=== PATIENT | female | born 1960 | race Caucasian/White ===

== ENCOUNTER 2024-09-10 12:50 | Outpatient (AMB) | payer SELFPAY ==
[2024-09-10 12:52] VITALS: BP 150/96; PULSE 125; O2SAT 79; BMI 26.6
--- NOTE | 2024-09-10 12:52 | AM.OFFWIN_ITS ---
Intake Vital Signs 09/10/24 12:52 09/10/24 12:56 Height 5 ft 4 in 5 ft 4 in Weight 155 lb BMI 26.6 BP 150/96 H Blood Pressure Location Lt brachial Position Sitting Pulse 125 H 126 H Pulse Source Pulse Oximeter Pulse Oximeter Pulse Oximetry (%) 79 L 86 L Oxygen Delivery Method Room Air Nasal Cannula Oxygen Flow Rate 2 Intake Visit Reasons: EP SOB, chest discomfort Intake Note: Pt presents to the office today for c/o SOB and chest discomfort that started a few hours ago. Pt states she has a history of COPD. Patient Tobacco Use Status: Former Tobacco user Allergies No Known Allergies Allergy (Verified 09/10/24 12:57) HPI HPI Comments History of Present Illness Details Patient is a 63-year-old female with a past medical history of COPD complaining 3 hours of acute onset shortness of breath. She tells me approximately 10:00 to day, she felt very fatigued and needed to sit down and noticed she was breathing very heavily and could not catch her breath. She just spent the previous night at the hospital with her who is suffering from a viral illness. She denies any fevers or chest pain, but is complaining of a slight cough with a some congestion and some blood in her mucus when she does cough up some phlegm. She denies any history of DVT or PE and denies any leg swelling, long road trips or sedentary lifestyle. She is a previous smoker, quit 10 years ago. [facility] Social History Patient Tobacco Use Status: Former Tobacco user Review of Systems Const All systems reviewed & are unremarkable except as noted in HPI and below Physical Exam Vital Signs: Last Vital Signs Pulse 126 H 09/10/24 12:56 BP 150/96 H 09/10/24 12:52 Pulse Ox 86 L 09/10/24 12:56 Oxygen Delivery Method Nasal Cannula 09/10/24 12:56 Oxygen Flow Rate 2 09/10/24 12:56 BMI result Body Mass Index 26.6 Const General: cooperative, healthy appearing, comfortable and no acute distress Orientation/consciousness: patient oriented x3 Limitations: no limitations HEENT Head: Yes normal to inspection Ears: hearing grossly normal bilaterally and external ears normal General nose exam: Normal external nose present, Normal nares present and No nasal discharge present Face and sinus: Yes normal facial exam Mouth: Normal oral and palatal mucosa present and moist mucous membranes Throat: Yes tonsils normal, Yes uvula midline and Yes posterior oropharynx abnormal (Erythema) Eyes General: appearance normal, both eyes and all related structures Neck Neck: Yes normal visual inspection Resp Effort & Inspection: normal respiratory effort, able to speak in complete sentences, respiratory distress (mild), not tachypneic, no tripod positioning and no use of accessory muscles Auscultation: no wheezes and diminished lung sounds on the right in the upper l lauren milian Cardio Rate: tachycardic Rhythm: regular rhythm Heart sounds: normal S1 and S2 Skin General skin exam: no rashes or lesions noted Neuro General: patient oriented x3 Extrem General: Yes normal to inspection and Yes no clubbing, cyanosis or edema Office Procedures EKG 44725-[id number], Complete Assessment & Plan Assessment & Plan (1) COPD exacerbation: Code(s): J44.1 - Chronic obstructive pulmonary disease with (acute) exacerbation Plan: Patient's oxygenation was down to 79%, came up to 88% once we placed 2 L nasal cannula on her. Heart rates around 125 beats per minute, EKG showed sinus tach with occasional PVCs and an anterior infarct age undetermined. 120 beats per minute. Patient feels better once we put the oxygen on her. Called EMS for transport to emergency department. Called [facility] ED with expect. Orders: Orders AMB EKG-In Office Today R09.02 - Hypoxemia Coding Level of Care Code New Pt Level 5 (18124) Diagnoses COPD exacerbation J44.1 CPT Codes EKG - CPT: 63195-Ixjbobsnljfvwuerm, Complete ([id number])
[2024-09-10 12:56] VITALS: PULSE 126; O2SAT 86
== END 2024-09-10 13:18 | disposition home or self-care (01) ==
PROVIDERS: PCP Internal Medicine; Visit Provider Physician Assistant
DX: J44.1 Chronic obstructive pulmonary disease with (acute) exacerbation (principal)

== ENCOUNTER → 2024-09-10 12:50 | Outpatient (BNVA) | payer SELFPAY | PROVIDERS: PCP Internal Medicine; Visit Provider Physician Assistant | DX: J44.1 Chronic obstructive pulmonary disease with (acute) exacerbation (principal); R09.02 Hypoxemia | CPT/HCPCS: 93005; 99202 ==

== ENCOUNTER 2024-09-10 13:41 | Inpatient (IN) | payer MEDICARE, OTHER, SELFPAY ==
[2024-09-10] VITALS (16 sets, daily range): BP systolic 107–143; BP diastolic 72–87; PULSE 106–129; RESP 16–25; TEMP 36.3–37.2; O2SAT 86–92; BMI 31.7
--- NOTE | ~2024-09-10 | XR_ITS ---
EXAMINATION: XR CHEST 1 VIEW HISTORY: hypoxia COMPARISON: Comparison is made with the prior examination dated 09/16/2024. FINDINGS: A single AP portable view of the chest performed at 9:42 AM is submitted. Again seen are increased interstitial markings, most prominent in the lower lung zones. More focal linear opacity in the left lower lobe and lingula is compatible with subsegmental atelectasis. There is no pleural effusion, pneumothorax, or pulmonary vascular congestion. The heart is normal in size. The aorta is calcified. There is degenerative disc disease of the spine. XR/XR chest 1V IMPRESSION: Increased interstitial markings in the lower lung zones. Subsegmental atelectasis at the left lung base. Electronically signed by: Adama Diez MD 09/18/2024 10:03 AM EDT
--- NOTE | ~2024-09-10 | CT_ITS ---
CLINICAL HISTORY: recent travel acute onset dyspnea - trop 3,000 CTA chest with 3-D postprocessing Comparison: CR/SR - XR CHEST 1V - 09/10/24 14:28 EDT Findings: Study quality is adequate for the diagnosis of pulmonary embolism. No pulmonary embolism. Heart size within normal limits. RV/LV ratio is normal. No calcified coronary artery disease. No aortic dissection or aneurysm. Mild calcified atherosclerotic disease. Mediastinal and hilar lymph nodes measure up to 1.0 cm in short axis. Advanced destructive centrilobular emphysema. Moderate amount of bilateral ground-glass opacity/patchy consolidation which is most prominent at the dependent aspects. Smooth interlobular septal thickening. No pneumothorax. Small bilateral pleural effusions. No acute osseous or soft tissue abnormality. No acute pathology in the imaged portion of the upper abdomen. Impression: No pulmonary embolism. [id number] pulmonary edema. Multifocal pneumonia is considered less likely. This is in the setting of severe emphysema. This document has been electronically signed by: Edith Sparrow MD on 09/10/2024 17:33:11
--- NOTE | ~2024-09-10 | CT_ITS ---
EXAMINATION: CT ABDOMEN PELVIS WITH IV CONTRAST HISTORY: RUQ mass on CT chest; could be artifact COMPARISON: Correlation is made with the upper abdominal images from a chest CT dated 09/14/2024. TECHNIQUE: CT scan of the abdomen and pelvis was performed following administration of 85 mL Omnipaque 350 using standard departmental protocol. Coronal and sagittal reformatted images were generated and reviewed. Oral contrast material was not administered at the request of the referring physician. This CT exam was performed with one or more of the following dose reduction techniques: automated exposure control, adjustment of the mA and/or kV according to patient size, use of iterative reconstruction technique. DLP: 418 mGy-cm FINDINGS: LOWER CHEST: Again seen is patchy airspace opacity at the lung bases. There is no pleural effusion. CARDIOVASCULATURE: The heart is normal in size. There is no pericardial effusion. LIVER: The liver is normal in size and contour. No liver mass is identified. The hepatic and portal veins are patent. GALLBLADDER / BILE DUCTS: The gallbladder is unremarkable. There is no intra or extrahepatic biliary ductal dilatation. SPLEEN: The spleen is normal in size. No focal splenic lesion is identified. PANCREAS: The pancreas is unremarkable in appearance. ADRENAL GLANDS: The right adrenal gland is unremarkable. There is a 9 mm left adrenal nodule which measured -6 HU intensity on the unenhanced chest CT, and cystoscopy with an adenoma. KIDNEYS/RETROPERITONEUM: No renal calculi are identified. There is no hydronephrosis. No renal masses are identified. LYMPH NODES: No abdominal or pelvic lymphadenopathy. VASCULATURE: The abdominal aorta is normal in caliber. MESENTERY/PERITONEUM: No free fluid. No masses. There is no free intraperitoneal gas. STOMACH: The stomach is collapsed, limiting evaluation. SMALL BOWEL: The small bowel is normal in caliber. COLON: There is a moderate amount of stool throughout the colon. APPENDIX: Normal. URINARY BLADDER/PELVIC ORGANS: The urinary bladder is unremarkable. The uterus and ovaries are unremarkable. BONES / SOFT TISSUES: No suspicious bony or soft tissue abnormalities. CT/CT abdomen pelvis w IV con IMPRESSION: 1. No evidence of an upper abdominal mass. The abnormality noted on chest CT likely represented volume averaging with the gastric body. 2. 9 mm left adrenal adenoma. 3. Moderate amount of stool throughout the colon. Electronically signed by: Adama Diez MD 09/19/2024 09:46 AM EDT RP
--- NOTE | ~2024-09-10 | XR_ITS ---
EXAMINATION: XR CHEST 1 VIEW HISTORY: cough COMPARISON: There are no prior studies for comparison. FINDINGS: A single AP portable view of the chest performed at 2:28 PM is submitted. There is prominence of the pulmonary vasculature, consistent with congestion. There are tiny bilateral pleural effusions. There is no pneumothorax. The heart is enlarged. The aorta is calcified. There is degenerative disc disease of the spine. XR/XR chest 1V IMPRESSION: Cardiomegaly, mild pulmonary vascular congestion, and tiny bilateral pleural effusions. Electronically signed by: Adama Diez MD 09/10/2024 02:33 PM EDT
--- NOTE | ~2024-09-10 | XR_ITS ---
EXAMINATION: XR CHEST 1 VIEW HISTORY: hemoptysis COMPARISON: Comparison is made with the prior examination dated 09/12/2024. FINDINGS: A single AP portable view of the chest performed at 2:08 PM is submitted. Again seen are increased interstitial markings in both lungs. The appearance is similar to prior study. There is no pleural effusion, pneumothorax, or pulmonary vascular congestion. The heart is normal in size. There is degenerative disc disease of the spine. XR/XR chest 1V IMPRESSION: Increased interstitial markings throughout both lungs without significant change. Electronically signed by: Adama Diez MD 09/16/2024 02:36 PM EDT
--- NOTE | ~2024-09-10 | US_ITS ---
EXAMINATION: US ABDOMEN LIMITED HISTORY: ct chest ? Masslike density in the RUQ TECHNIQUE: Real-time grayscale ultrasound imaging of the right upper quadrant was performed and images were reviewed. COMPARISON: Correlation is made with the upper abdominal images from a chest CT dated 09/14/2024. FINDINGS: Limited sonographic examination of the right upper quadrant was performed. The liver is grossly unremarkable in appearance. The pancreas is not visualized. US/US abdomen limited IMPRESSION: The pancreas is not visualized. Further evaluation with contrast-enhanced CT of the abdomen and pelvis (with oral and IV contrast) is recommended to further evaluate the partially visualized possible abnormality noted on unenhanced CT. Electronically signed by: Adama Diez MD 09/17/2024 07:57 AM EDT
--- NOTE | ~2024-09-10 | XR_ITS ---
EXAMINATION: XR CHEST CLINICAL INFORMATION: PNA, ?CHF COMPARISON: September 10, 2024 TECHNIQUE: Frontal view of the chest was obtained. FINDINGS: Pulmonary reticular nodular pattern. No gross pneumothorax or pleural effusion. Cardiomediastinal silhouette size is mildly prominent. Calcified plaque thoracic aorta. Mild to moderate multilevel thoracic spondylosis. Degenerative changes in the right acromioclavicular joint. XR/XR chest 1V IMPRESSION: Chronic interstitial lung disease with improved/less interstitial lung edema. Superimposed acute pneumonitis versus acute small airway disease should be considered. Electronically signed by: Sergo Bishop MD 09/12/2024 08:06 AM EDT
--- NOTE | ~2024-09-10 | CT_ITS ---
CLINICAL HISTORY: pna heamoptysis CT CHEST WITHOUT CONTRAST Comparison: CR/SR - XR CHEST 1V - 09/12/24 07:[address]/SR - CT ANGIO CHEST PE PROTOCOL - 09/10/24 16:34 EDT Findings: The heart size is normal. Scattered calcific plaque in the normal caliber thoracic aorta. Visualized thyroid gland unremarkable. Improved mediastinal adenopathy. Abnormal airspace opacities in the bilateral upper lobes are unchanged. Abnormal airspace opacities in the right middle lobe, lingula and bilateral lower lobes are improved. No new or worsening consolidative changes. Near-complete resolution of bilateral pleural effusions with residual tiny findings on the right. No pneumothorax. Centrilobular emphysematous changes. No acute fractures. Masslike density in the right upper quadrant on axial image 64. IMPRESSION: 1. Multifocal bilateral pneumonia overall improved compared to prior. 2. Near-complete resolution of small bilateral pleural effusions. 3. Masslike density in the right upper quadrant may represent volume averaging artifact. Recommend clinical correlation and follow-up CT abdomen pelvis with IV contrast if clinically indicated. This document has been electronically signed by: Amna Abdi DO on 09/14/2024 13:32:50
--- NOTE | 2024-09-10 13:57 | ECG_ITS ---
Test Reason : TACHY/SOB Blood Pressure : */* mmHG Vent. Rate : 126 BPM Atrial Rate : 126 BPM P-R Int : 154 ms QRS Dur : 84 ms QT Int : 306 ms P-R-T Axes : 47 50 101 degrees QTcB Int : 443 ms Sinus tachycardia Anterior infarct , age undetermined Abnormal ECG No previous ECGs available Referred By: Erika Diaz Electronically Signed By: Jim Ho
--- NOTE | 2024-09-10 14:03 | ED_ITS ---
HPI - SOB/Dyspnea General Chief Complaint: Dyspnea Stated Complaint: SOB Source: patient, EMS and old records reviewed Mode of arrival: EMS Limitations: no limitations History of Present Illness ED Provider: PHI CARRASQUILLO Narrative: 63 yo female with PMH of heavy smoking though did quit 10 to 12 years ago, COPD not on home O2 who traveled to [place] (08/29 to 09/03) with her boyfriend who is also ill and was in our ER with reported negative work up. The patient notes over the past few days she has been having chills, dyspnea, feels congested and her chest is tight with coarse junky cough. Today after taking him home and situating him she notes she felt worse and more dyspneic. She has no chest pain, leg swelling. She notes they stayed in a really old hotel. She states she has pneumonia 10 years ago and this feels similar. Patient was found to be 79% on arrival to urgent care. EMS gave duoneb which did help on arrival here she is 88% on 5L NC - she notes her normal O2 sat is 94%. MD elicited complaint: shortness of breath Pertinent past history: COPD Onset (ago): day(s) (few) Context: recent illness Timing: progressively worsening Severity: severe Exacerbating factors: exertion and coughing Relieving factors: rest Known history of: COPD Associated symptoms: cough Treatment prior to arrival: oxygen and other (neb therapy) Related Data Home Medications ?Medication ?Instructions ?Recorded ?Confirmed No Known Home Meds 09/10/24 09/10/24 Allergies Allergy/AdvReac Type Severity Reaction Status Date / Time codeine Allergy Unknown Verified 09/10/24 13:59 Review of Systems 2 Review of Systems: Constitutional : No Fever, pos Chills ENT/Mouth : No sore throat, No Rhinorrhea, No Swallowing Difficulty Eyes: No Eye Pain, No Swelling, No Redness Cardiovascular : No Chest Pain, positive SOB, No edema Respiratory : pos Cough, No Sputum, No Wheezing, positive dyspnea Gastrointestinal : No Nausea, No Vomiting, No Diarrhea, No abdominal Pain, No Hematochezia, No Melena Genitourinary : No Dysuria, No Urinary Frequency, No Hematuria Musculoskeletal : No joint pain, No Myalgias Skin : No Skin Lesions, No rash Neuro : pos Weakness, No Numbness, No Dizziness, No Headache All other systems reviewed and are negative PMFSH Past Medical History Attestation statement: The following information was validated with the patient. Source: old records reviewed Medical History (Updated 09/10/24 @ 18:54 by ALINA Spivey) COPD exacerbation Urinary tract infection Social History Social History Patient Tobacco Use Status: Former Tobacco user Smoked in Last 30 Days: No Use of substances other than those prescribed or required for medical reasons: No Advance Directives: No Advance Directives Information Provided: Yes Physical Exam 2 Vital Signs: Vital Signs: Last Vital Signs Temp 98.7 F 09/10/24 20:21 Pulse 126 H 09/10/24 20:21 Resp 20 09/10/24 20:21 BP 121/78 09/10/24 20:21 Pulse Ox 90 L 09/10/24 20:21 O2 Del Method High Flow Nasal C annula 09/10/24 20:21 O2 Flow Rate 50 09/10/24 19:17 FiO2 65 09/10/24 19:17 Oxygen Flow Rate 3 09/10/24 13:57 BMI result Body Mass Index 31.7 Appearance: Alert. Oriented X3. Mild acute distress. Eyes: Pupils equal, round and reactive to light. ENT: Pharynx dry MM Neck: Normal inspection. Neck supple. CVS: tachycardic heart rate and rhythm. Pulses normal. Respiratory: Mild respiratory distress tachypnea and short phrase. Breath sounds very diminished R > L. Abdomen: Soft and nontender. Skin: Skin warm and dry. Normal skin color. Normal skin turgor. Extremities: No lower extremity edema. No calf ttp Neuro: Oriented X 3. No motor deficit. No sensory deficit. CN2-12 intact Course Course Course Narrative: on high flow at this time given persistent hypoxia given total 150ml of LR (held rest of 1,000mL bolus after speaking to RN) concern that this is more viral infection vs ACS/VTE and not acute bacterial infection causing severe sepsis lactic also likely elevated after albuterol dose 81mg aspirin and no contraindications to heparin Medications Administered Generic Name Dose Route Start Last Admin Trade Name Freq PRN Reason Stop Dose Admin Albuterol/Ipratropium 3 ml 09/10/24 20:00 09/10/24 19:28 Albuterol/Iprat 2.5/0.5mg 3 Ml Ampul.Neb INHALE 3 ml RQ4H WHILE AWAKE DIONNE Administration Heparin Sodium/Sodium Chloride 25,000 unit in 250 mls @ 0 mls/hr 09/10/24 15:15 09/10/24 15:37 Heparin Sodium,Porcine/1/2ns IVCONT 11.92 units/kg/hr .Q0M DIONNE 10 mls/hr Administration Protocol Per Protocol Azithromycin 500 mg/ Sodium 250 mls @ 125 mls/hr 09/10/24 19:00 09/10/24 19:50 Chloride IV 125 mls/hr Q24H DIONNE Administration Discontinued Medications Generic Name Dose Route Start Last Admin Trade Name Freq PRN Reason Stop Dose Admin Aspirin 81 mg 09/10/24 15:14 09/10/24 15:29 Aspirin 81 Mg Tab.Chew PO 09/10/24 15:15 81 mg ONCE ONE Administration Ceftriaxone Sodium 1 gm 09/10/24 14:00 09/10/24 14:22 Ceftriaxone Sodium 1 Gm Vial IVPUSH 09/10/24 14:01 1 gm ONCE ONE Administration Levalbuterol HCl 2.5 mg/ 0 mg 09/10/24 14:22 09/10/24 14:24 Ipratropium [place] 0.5 mg INHALE 09/10/24 14:23 1 dose ONCE ONE Administration Furosemide 20 mg 09/10/24 15:33 09/10/24 16:10 Furosemide 20 Mg/2 Ml Vial IVPUSH 09/10/24 15:34 20 mg ONCE ONE Administration Protocol Heparin Sodium (Porcine) 4,000 unit 09/10/24 15:13 09/10/24 15:30 Heparin Sodium,Porcine 5,000 Unit/Ml Vial IVPUSH 09/10/24 15:14 4,000 unit ONCE ONE Administration Magnesium Sulfate 2 gm in 50 mls @ 150 mls/hr 09/10/24 14:00 09/10/24 15:41 Magnesium Sulfate/H2o IV 09/10/24 14:19 Infused ONCE ONE Infusion Lactated Ringer's 1,000 mls @ 999 mls/hr 09/10/24 14:02 09/10/24 15:07 Lr IV 09/10/24 15:02 Infused .Q1H1M ONE Infusion Iohexol 100 ml 09/10/24 16:39 09/10/24 16:39 Iohexol 350 Mg/Ml 100 Ml Infus..Btl IV 09/10/24 16:40 65 ml ONCE ONE Administration Levofloxacin 750 mg 09/10/24 14:02 09/10/24 14:22 Levofloxacin 750 Mg Tablet PO 09/10/24 14:03 750 mg ONCE ONE Administration Methylprednisolone Sodium Succinate 60 mg 09/10/24 14:00 09/10/24 14:22 Methylprednisolone Sod Succ 125 Mg/2 Ml Vial IVPUSH 09/10/24 14:01 60 mg ONCE ONE Administration Medical Decision Making Medical Decision Making MDM Narrative: 63 yo female with PMH of COPD but not on home O2 who comes in with c/o URI symptoms and her spouse is also sick after recent travel to [place] her spouse has URI symptoms and mild diarrhea. Patient has been hypoxic but has no pleuritic chest pain and no signs of DVT I suspect more infectious. At this time given her history I am going to obtain EKG, labs, cultures, start neb therapy, IV steroids / IV magnesium, VBG ordered if there is no signs of retention which clinically there isn't I am going to start on high flow if she continues to be on oxymask with increased hypoxia. If no improvement in her O2 will proceed with CTA study. Her symptoms seem more infectious but EKG and troponin ordered to rule out acute pathology such as atypical ACS, demand, myocarditis. IV ceftriaxone ordered for CAP then oral levofloxacin given legionnairres concern for hotel stay. Differential Diagnosis Differential Diagnoses: The differential diagnosis associated with the presentation includes pneumonia, COPD exacerbation symptoms seem more infectious and partner has same symptoms doubt VTE at this time Admission/Observation Consideration of admission/observation: Escalation of care including admission/observation considered admit for further workup Consult Healthcare Provider Management of the patient was discussed with: Hospitalist (will admit) and Batch Still Operator [id number] message sent to cardiology after troponin level. CTA PE, ECHO, heparin x 48 hours, lasix 20mg x 1, ECHO looks like takotsubo Lab Data [facility] Lab Attestation statement: I reviewed the patient's lab results. 09/10/24 14:20 09/10/24 14:20 Labs: Lab Results 09/10/24 09/10/24 09/10/24 Range/Units 14:19 14:20 14:27 WBC 23.5 H (4.8-10.8) X10*3/uL RBC 5.76 H (4.20-5.50) X10*6/uL Hgb 17.1 H (12.0-16.0) g/dl Hct 50.1 H (37.0-47.0) % MCV 87.0 (80.0-98.0) fL MCH 29.7 (27.0-33.0) pg MCHC 34.1 (31.0-35.0) g/dl RDW 13.8 (11.0-16.0) % Plt Count 359 (160-400) X10*3/uL MPV 11.2 (9.4-12.3) fL Immature Gran % (Auto) 0.6 H (0.0-0.4) % Neut % (Auto) 87.5 H (45-73) % Lymph % (Auto) 6.3 L (20-40) % [place] % (Auto) 5.2 (2-11) % Eos % (Auto) 0.2 (0-4) % Baso % (Auto) 0.2 (0-2) % Lymph # (Auto) 1.5 (1.2-4.9) X10*3/uL [place] # (Auto) 1.2 (0.1-1.2) X10*3/uL Eos # (Auto) 0.0 (0.0-0.4) X10*3/uL Baso # (Auto) 0.1 (0.0-0.2) X10*3/uL Abs Immat Gran (auto) 0.13 H (0.00-0.03) X10*3/uL Absolute Neuts (auto) 20.6 H (2.0-8.3) x10*3/uL Absolute Nucleated RBC 0.000 (0.0-0.012) X10*3/uL Nucleated RBC % (auto) 0.0 (0.0-0.2) /100WBC Smear Tech's Comments VERIFIED PT (10.9-12.4) SEC INR (0.9-1.1) aPTT Heparin Protocol (53-77.9) SEC VBG pH 7.33 (7.32-7.43) VBG pCO2 44 mmHg VBG pO2 28 mmHg VBG HCO3 23 (22-26) mmol/L VBG O2 Saturation 33.0 % VBG Base Excess -2.2 mmol/L Sodium 135 (135-145) mmol/L Potassium 4.0 (3.3-5.1) mmol/L Chloride 99 (96-108) mmol/L Carbon Dioxide 22 (22-29) mmol/L Anion Gap 18 (12-20) BUN 14 (9-16) mg/dL Creatinine 0.72 (0.5-1.4) mg/dL Estim Creat Clear Calc 81.6 Estimated GFR > 60 Random Glucose 162 H (60-115) mg/dL Lactic Acid (0.5-2.0) mmol/L Lactic Acid F/U @ 2Hr (0.5-2.0) mmol/L Calcium 9.6 (8.4-10.2) mg/dL Magnesium 1.8 (1.6-2.6) mg/dL Total Bilirubin 0.6 (0.0-1.0) mg/dL Direct Bilirubin 0.2 (0.0-0.5) mg/dL AST 54 H (5-31) U/L ALT 33 H (0-31) U/L Alkaline Phosphatase 110 (39-117) U/L Troponin I High Sens 3385.0 H* (<3.5-17.0) ng/L C-Reactive Protein 2.28 H (< or = 0.50) mg/dL B-Natriuretic Peptide 805 H (<100) pg/mL Total Protein 8.3 H (6.5-8.0) g/dL Albumin 4.5 (3.5-5.0) g/dL Lipase 11 (8-78) U/L Procalcitonin 0.04 ng/mL Urine Color Urine Appearance Urine pH (5.0-9.0) Ur Specific [place] (1.005-1.025) Urine Protein (Neg-Trace) mg/dL Urine Glucose (UA) (Negative) mg/dL Urine Ketones (Negative) mg/dL Urine Blood (Negative) Urine Nitrite (Negative) Ur Leukocyte Esterase (Negative) Urine RBC (0-2) /HPF Urine WBC (0-5) /HPF Ur Squamous Epith Cells (0-2) /HPF Urine Bacteria (None Seen) Hyaline Casts (0-2) /LPF Influenza Type A (PCR) NEGATIVE (Negative) Influenza Type B (PCR) NEGATIVE (Negative) RSV RNA Qual (PCR) NEGATIVE (Negative) SARS-CoV-2 RNA (RT-PCR) NEGATIVE (Negative) 09/10/24 09/10/24 09/10/24 Range/Units 15:04 15:32 16:52 WBC (4.8-10.8) X10*3/uL RBC (4.20-5.50) X10*6/uL Hgb (12.0-16.0) g/dl Hct (37.0-47.0) % MCV (80.0-98.0) fL MCH (27.0-33.0) pg MCHC (31.0-35.0) g/dl RDW (11.0-16.0) % Plt Count (160-400) X10*3/uL MPV (9.4-12.3) fL Immature Gran % (Auto) (0.0-0.4) % Neut % (Auto) (45-73) % Lymph % (Auto) (20-40) % [place] % (Auto) (2-11) % Eos % (Auto) (0-4) % Baso % (Auto) (0-2) % Lymph # (Auto) (1.2-4.9) X10*3/uL [place] # (Auto) (0.1-1.2) X10*3/uL Eos # (Auto) (0.0-0.4) X10*3/uL Baso # (Auto) (0.0-0.2) X10*3/uL Abs Immat Gran (auto) (0.00-0.03) X10*3/uL Absolute Neuts (auto) (2.0-8.3) x10*3/uL Absolute Nucleated RBC (0.0-0.012) X10*3/uL Nucleated RBC % (auto) (0.0-0.2) /100WBC Smear Tech's Comments PT 13.8 H (10.9-12.4) SEC INR 1.2 H (0.9-1.1) aPTT Heparin Protocol 33.9 L (53-77.9) SEC VBG pH (7.32-7.43) VBG pCO2 mmHg VBG pO2 mmHg VBG HCO3 (22-26) mmol/L VBG O2 Saturation % VBG Base Excess mmol/L Sodium (135-145) mmol/L Potassium (3.3-5.1) mmol/L Chloride (96-108) mmol/L Carbon Dioxide (22-29) mmol/L Anion Gap (12-20) BUN (9-16) mg/dL Creatinine (0.5-1.4) mg/dL Estim Creat Clear Calc Estimated GFR Random Glucose (60-115) mg/dL Lactic Acid 4.2 H* (0.5-2.0) mmol/L Lactic Acid F/U @ 2Hr (0.5-2.0) mmol/L Calcium (8.4-10.2) mg/dL Magnesium (1.6-2.6) mg/dL Total Bilirubin (0.0-1.0) mg/dL Direct Bilirubin (0.0-0.5) mg/dL AST (5-31) U/L ALT (0-31) U/L Alkaline Phosphatase (39-117) U/L Troponin I High Sens (<3.5-17.0) ng/L C-Reactive Protein (< or = 0.50) mg/dL B-Natriuretic Peptide (<100) pg/mL Total Protein (6.5-8.0) g/dL Albumin (3.5-5.0) g/dL Lipase (8-78) U/L Procalcitonin ng/mL Urine Color Yellow Urine Appearance Clear Urine pH 5.5 (5.0-9.0) Ur Specific [place] 1.015 (1.005-1.025) Urine Protein Negative (Neg-Trace) mg/dL Urine Glucose (UA) Negative (Negative) mg/dL Urine Ketones 40 (Negative) mg/dL Urine Blood Negative (Negative) Urine Nitrite Negative (Negative) Ur Leukocyte Esterase Moderate (2+) H (Negative) Urine RBC 0-2 (0-2) /HPF Urine WBC 11-20 H (0-5) /HPF Ur Squamous Epith Cells 6-10 (0-2) /HPF Urine Bacteria Trace (None Seen) Hyaline Casts 0-2 (0-2) /LPF Influenza Type A (PCR) (Negative) Influenza Type B (PCR) (Negative) RSV RNA Qual (PCR) (Negative) SARS-CoV-2 RNA (RT-PCR) (Negative) 03/18/25 Range/Units 17:12 WBC (4.8-10.8) X10*3/uL RBC (4.20-5.50) X10*6/uL Hgb (12.0-16.0) g/dl Hct (37.0-47.0) % MCV (80.0-98.0) fL MCH (27.0-33.0) pg MCHC (31.0-35.0) g/dl RDW (11.0-16.0) % Plt Count (160-400) X10*3/uL MPV (9.4-12.3) fL Immature Gran % (Auto) (0.0-0.4) % Neut % (Auto) (45-73) % Lymph % (Auto) (20-40) % [place] % (Auto) (2-11) % Eos % (Auto) (0-4) % Baso % (Auto) (0-2) % Lymph # (Auto) (1.2-4.9) X10*3/uL [place] # (Auto) (0.1-1.2) X10*3/uL Eos # (Auto) (0.0-0.4) X10*3/uL Baso # (Auto) (0.0-0.2) X10*3/uL Abs Immat Gran (auto) (0.00-0.03) X10*3/uL Absolute Neuts (auto) (2.0-8.3) x10*3/uL Absolute Nucleated RBC (0.0-0.012) X10*3/uL Nucleated RBC % (auto) (0.0-0.2) /100WBC Smear Tech's Comments PT (10.9-12.4) SEC INR (0.9-1.1) aPTT Heparin Protocol (53-77.9) SEC VBG pH (7.32-7.43) VBG pCO2 mmHg VBG pO2 mmHg VBG HCO3 (22-26) mmol/L VBG O2 Saturation % VBG Base Excess mmol/L Sodium (135-145) mmol/L Potassium (3.3-5.1) mmol/L Chloride (96-108) mmol/L Carbon Dioxide (22-29) mmol/L Anion Gap (12-20) BUN (9-16) mg/dL Creatinine (0.5-1.4) mg/dL Estim Creat Clear Calc Estimated GFR Random Glucose (60-115) mg/dL Lactic Acid (0.5-2.0) mmol/L Lactic Acid F/U @ 2Hr 2.8 H* (0.5-2.0) mmol/L Calcium (8.4-10.2) mg/dL Magnesium (1.6-2.6) mg/dL Total Bilirubin (0.0-1.0) mg/dL Direct Bilirubin (0.0-0.5) mg/dL AST (5-31) U/L ALT (0-31) U/L Alkaline Phosphatase (39-117) U/L Troponin I High Sens 3195.0 H* (<3.5-17.0) ng/L C-Reactive Protein (< or = 0.50) mg/dL B-Natriuretic Peptide (<100) pg/mL Total Protein (6.5-8.0) g/dL Albumin (3.5-5.0) g/dL Lipase (8-78) U/L Procalcitonin ng/mL Urine Color Urine Appearance Urine pH (5.0-9.0) Ur Specific [place] (1.005-1.025) Urine Protein (Neg-Trace) mg/dL Urine Glucose (UA) (Negative) mg/dL Urine Ketones (Negative) mg/dL Urine Blood (Negative) Urine Nitrite (Negative) Ur Leukocyte Esterase (Negative) Urine RBC (0-2) /HPF Urine WBC (0-5) /HPF Ur Squamous Epith Cells (0-2) /HPF Urine Bacteria (None Seen) Hyaline Casts (0-2) /LPF Influenza Type A (PCR) (Negative) Influenza Type B (PCR) (Negative) RSV RNA Qual (PCR) (Negative) SARS-CoV-2 RNA (RT-PCR) (Negative) Independent Interpretation I performed an independent interpretation of an: EKG, Plain X-Ray and CT Scan (edema) Interpretation: Rate: 126 Rhythm: sinus tachycardia [place]: normal Normal P waves. Normal GUSTAVO. Normal QRS complex. Poor R wave progression ST T wave : no ELVIN, nonspecific ST T wave changes I and aVL qTC: 443 prior studies: no STEMI The study has been interpreted contemporaneously by me. . Radiology Impression Discussion of test interpretation with radiology: I have reviewed the radiologist's reading. Independent Historian Clinical information obtained from an independent historian. History obtained from or confirmed by: EMS External Record Review External record reviewed: Outpatient record Critical Care Time Critical Care Time Critical Care Time: Yes Total Critical Care Time: 60 Attestation: repeat labs, sepsis protocol, cardiology consult, high flow O2 for hypoxia I attest to this time spent taking care of the patient Discharge Plan Discharge Clinical Impression: Hypoxia, Takotsubo cardiomyopathy, Non-ST elevation MA (NSTEMI), Acidosis, lactic Patient Disposition: Admitted As Inpatient Interventions: Admission Worksheet (ED) Last Done: 09/10/24 19:21 Discharge Date/Time: 09/10/24 20:17 Sepsis Bolus Exclusion Sepsis Bolus Exclusion CHF/Renal Failure This patient met severe sepsis criteria due to the following condition(s):: L actate>=4mmol/L In my clinical judgement the administration of 30 ml/kg of crystalloid would be detrimental to this patient due to the patient's following conditions:: Concern for fluid overload Replace the 30 mls/kg with (Zero amount not acceptable and all fluids for severe sepsis must be given at GREATER than 125 mls/hr) Crystalloids amount given in mls: (rate must be at least 150cc/hr): 150 Colloids amount given in mls:: 0
[2024-09-10] MEDS: levoFLOXacin 750 MG TABLET PO (14:22)
[2024-09-10] MEDS: methylPREDNISolone Sod Succ 125 MG/2 ML VIAL 60 MG IVPUSH (14:22)
[2024-09-10] MEDS: Magnesium Sulfate/H2O 2 GM/50 ML PIGGYBACK IV (14:22)
[2024-09-10] MEDS: cefTRIAXone sodium 1 GM VIAL IVPUSH (14:22)
[2024-09-10] MEDS: Lactated Ringers 1,000 ML 999 ML IV (14:23)
[2024-09-10] MEDS: levalbuterol HCL 2.5 MG, Ipratropium Bromide 0.5 MG INHALE (14:24)
[2024-09-10 14:30] LABS: Basophils Absolute Auto 0.1 X10*3/uL (0.0-0.2); Basophils Percent Auto 0.2 % (0-2); Eosinophils Percent Auto 0.2 % (0-4); Hematocrit 50.1 % (37.0-47.0); Hemoglobin 17.1 g/dl (12.0-16.0); Imm Gran Abs Auto 0.13 X10*3/uL (0.00-0.03); Imm Gran Pct Auto 0.6 % (0.0-0.4); Lymphocytes Absolute Auto 1.5 X10*3/uL (1.2-4.9); Lymphocytes Percent Auto 6.3 % (20-40); MANUAL DIFF FLAG SCAN; Mean Corpuscular HGB Conc 34.1 g/dl (31.0-35.0); Mean Corpuscular Hemoglobin 29.7 pg (27.0-33.0); Mean Platelet Volume 11.2 fL (9.4-12.3); Monocytes Absolute Auto 1.2 X10*3/uL (0.1-1.2); Monocytes Percent Auto 5.2 % (2-11); Neutrophils Absolute Auto 20.6 x10*3/uL (2.0-8.3); Neutrophils Percent Auto 87.5 % (45-73); Platelet Count 359 X10*3/uL (160-400); Red Blood Count 5.76 X10*6/uL (4.20-5.50); Red Cell Distribution Width 13.8 % (11.0-16.0); SCAN SMEAR FLAG 1; White Blood Count 23.5 X10*3/uL (4.8-10.8)
[2024-09-10 14:32] LABS: VBG Base Excess -2.2 mmol/L; VBG HCO3 23 mmol/L (22-26); VBG pCO2 44 mmHg; VBG pH 7.33 (7.32-7.43); VBG pO2 28 mmHg
[2024-09-10 14:38] LABS: Venous Blood Gas Refer to POC result
[2024-09-10 14:54] LABS: Alanine Aminotransferase 33 U/L (0-31); Albumin Level 4.5 g/dL (3.5-5.0); Alkaline Phosphatase 110 U/L (39-117); Anion Gap 18 (12-20); Aspartate Amino Transferase 54 U/L (5-31); Bilirubin Direct 0.2 mg/dL (0.0-0.5); Bilirubin Total 0.6 mg/dL (0.0-1.0); Blood Urea Nitrogen 14 mg/dL (9-16); C Reactive Protein 2.28 mg/dL (< or = 0.50); Calcium 9.6 mg/dL (8.4-10.2); Carbon Dioxide 22 mmol/L (22-29); Chloride 99 mmol/L (96-108); Creatinine Clr Calc Pharmacy 81.6; Estimated Glomerular Filt Rate > 60; Glucose Random 162 mg/dL (60-115); Lipase 11 U/L (8-78); Magnesium 1.8 mg/dL (1.6-2.6); Sodium 135 mmol/L (135-145); Total Protein 8.3 g/dL (6.5-8.0)
[2024-09-10 14:55] LABS: B Type Natriuretic Peptide 805 pg/mL (<100)
[2024-09-10 15:08] LABS: Procalcitonin 0.04 ng/mL
--- NOTE | 2024-09-10 15:08 | PC.NURSE ---
at the bedside, IV fluids D/C, O2 increased to 7L oxymask
--- NOTE | 2024-09-10 15:15 | CA_ITS ---
Transthoracic Echocardiogram Patient (Last, First, Middle): Earlene Causey, Gender: Female Date of : 1960 Age: 63 Procedure Date: 09/10/2024 Procedure Type: Transthoracic Echocardiogram Location: ER Height: 162.56 cm Weight: 83.46 kg BSA: 1.89 m2 Heart Rate: bpm BP: 122 / 78 mmHg Senior Electrical Engineer: Referring MD: Vianca Terry MD Symptoms: troponin+, ECG changes Study Quality: Fair ECG Rhythm: Sinus TACHY Conclusions: - Normal left ventricular cavity size. There is normal left ventricular wall thickness. The left ventricular systolic function is moderate to severely decreased. The visually estimated ejection fraction is between 25-30%. - The entire apex, the mid anterior, mid inferior, mid anterolateral, mid inferoseptal, mid anteroseptal, and mid inferolateral segments are akinetic. - Takotsubo cardiomyopathy vs multivessel disease. Findings Procedure Information Contrast agent, definity, is being given per protocol without apparent complications. Left Ventricle Normal left ventricular cavity size. There is normal left ventricular wall thickness. The left ventricular systolic function is moderate to severely decreased. The visually estimated ejection fraction is between 25-30%. There is evidence of regional wall motion abnormalities. Diastolic function is indeterminate on the basis of available data. Wall Motion Rest Echo Findings The entire apex, the mid anterior, mid inferior, mid anterolateral, mid inferoseptal, mid anteroseptal, and mid inferolateral segments are akinetic. Right Ventricle Normal right ventricular cavity size. There is low normal right ventricular systolic function. Atria The left atrium is normal in size. The right atrium is normal in size. Aortic Valve The aortic valve was not well visualized. There is no aortic valve stenosis. There is no aortic valve regurgitation. Mitral Valve The mitral valve appears normal. There is trace mitral valve regurgitation. There is no mitral valve stenosis. Pulmonic Valve The pulmonic valve is likely normal. Tricuspid Valve Normal tricuspid valve structure. There is no tricuspid valve regurgitation. Normal right atrial pressure. There is no evidence of pulmonary hypertension. Venous The inferior vena cava is normal in size and collapses greater than 50% with inspiration. Pericardium/Pleural There is no evidence of pericardial effusion. Prior Study Comparison No prior study available for comparison. Measurements 2D Linear Measurements IVSd: 0.93 0.6-0.9/0.6-1.0 cm LVIDd: 4.77 3.9-5.3/4.2-5.9 cm LVIDd Index: 2.52 2.4-3.2/2.2-3.1 cm/m2 LVIDs: 4.33 2.0-3.6 cm LVPWd: 0.83 0.7-1.1 cm Ao Root: 2.40 2.1-3.5 cm LA Diam: 3.60 2.7-3.8/3.0-4.0 cm LAIDs Index: 1.90 1.5-2.3 cm/m2 LV Mass: 176.58 67-162/88-224 g LV Mass Index: 93.43 43-95/49-115 g/m2 LVOT Diam: 1.90 3.0+(-)1.3 cm Mitral Valve MV Pk E: 0.74 MV Decel Time: 121.00 E'Lateral: 8.81 E'Medial: 10.70 E/E' Med: 6.90 E/E' Lat: 8.40 PHT: 36.00 MVA PHT: 6.11 Decel Hand: 6.10 Aortic Valve AoV Pk Gaetano: 1.30 AoV Mn Gaetano: 0.80 AoV VTI: 0.19 AoV Pk Grad: 7.00 Aov Mn Grad: 3.00 WILMAR Cont.VTI: 1.71 LVOT LVOT Pk Gaetano: 0.78 LVOT Mn Gaetano: 0.56 LVOT VTI: 0.11 LVOT Pk Grad: 2.00 LVOT Mn Grad: 1.00 LVOT Diam: 1.90 LVOT Area: 2.84 Diastolic Function MV Pk E: 0.74 E'Medial: 10.70 E/E' Med: 6.90 E' Laterial: 8.81 E/E' Lat: 8.40 Right Ventricle TAPSE (mm): 18.00 TVS' Gaetano: 9.00 Tricuspid Valve TR Pk Gaetano: 1.58 TR Pk Grad: 10.00 RA Press: 3.00 RVSP: 13.00 Great Vessels Aorta Ao Root-2D: 2.40 2.0-3.7 cm Pulmonary Valve PV Pk Gaetano: 0.71 Peak PV Grad: 2.00 Updated in Other Vendor System with Status of Final Jim Ho MD electronically signed on 09/11/2024 4:09:39 PM with status of Final
[2024-09-10 15:16] LABS: Influenza A PCR NEGATIVE (Negative); Influenza B PCR NEGATIVE (Negative); Resp Syncy Virus RNA Qual PCR NEGATIVE (Negative); SARS COV2 PCR INHOUSE NEGATIVE (Negative)
[2024-09-10 15:21] LABS: SLIDE REVIEW VERIFIED
[2024-09-10 15:26] LABS: Lactic Acid 4.2 mmol/L (0.5-2.0)
[2024-09-10] MEDS: Aspirin 81 MG TAB.CHEW PO (15:29)
--- NOTE | 2024-09-10 15:29 | PC.NURSE ---
per provider give heparin bolus and start heparin drip once PT/ INR has been drawn
[2024-09-10] MEDS: Heparin Sodium,Porcine 5,000 UNIT/ML VIAL 4000 UNIT IVPUSH (15:30)
[2024-09-10] MEDS: Heparin Sodium,Porcine/1/2NS 25,000 UNIT/250 ML IV.SOLN 10 UNIT IVCONT (15:37)
[2024-09-10 15:42] LABS: INTERNATIONAL NORM RATIO 1.2 (0.9-1.1); Prothrombin Time 13.8 SEC (10.9-12.4)
[2024-09-10 15:44] LABS: PTT Heparin Drip 33.9 SEC (53-77.9)
--- NOTE | 2024-09-10 15:58 | PM.CNCAR ---
History of Present Illness History of Present Illness Date of Service: 09/10/24 Requesting physician: Erika Diaz Chief complaint: SOB Narrative: [age] year female who we have asked to see for elevated troponins and ECG changes. She was in [place] with her . On return the has been has been sick with respiratory illness and she also has been feeling sick with shortness of breath and chest tightness. She has known history of COPD. With these symptoms she presented and was hypoxic. Her BNP and troponins were elevated. ECG showed sinus tachycardia with precordial subtle T-wave inversions. She is on high-flow oxygen currently. Denying any chest discomfort. ECG sinus tachycardia. Echocardiography is showing at least moderate LV dysfunction with classic takotsubo like changes. She has no history of coronary disease in the past. [facility] Past Medical History Medical History Urinary tract infection COPD exacerbation Social History Social History Patient Tobacco Use Status: Former Tobacco user Smoked in Last 30 Days: No Use of substances other than those prescribed or required for medical reasons: No Advance Directives: No Advance Directives Information Provided: Yes Meds Allergies Allergy/AdvReac Type Severity Reaction Status Date / Time codeine Allergy Unknown Verified 09/10/24 13:59 Active Medications: Current Medications Heparin Sodium (Porcine) (Heparin Sodium,Porcine 5,000 Unit/Ml Vial) 3,400 unit 40 unit/kg (3400 unit) IVPUSH PROTOCOL BOLUS PRN; Protocol PRN Reason: 40 unit/kg - Heparin Protocol Heparin Sodium (Porcine) (Heparin Sodium,Porcine 5,000 Unit/Ml Vial) 6,700 unit 80 unit/kg (6700 unit) IVPUSH PROTOCOL BOLUS PRN; Protocol PRN Reason: 80 unit/kg - Heparin Protocol Heparin Sodium/Sodium Chloride (Heparin Sodium,Porcine/1/2ns) 25,000 unit in 250 mls @ 0 mls/hr IVCONT .Q0M [facility]; Protocol Last Admin: 09/10/24 15:37 Dose: 11.92 units/kg/hr, 10 mls/hr Home Medications ?Medication ?Instructions ?Recorded ?Confirmed ?Last Taken ?Type No Known Home Meds 09/10/24 09/10/24 Unknown History Physical Exam Vital Signs: Vital Signs: Last Vital Signs Temp 98.8 F 09/10/24 15:54 Pulse 129 H 09/10/24 15:54 Resp 22 H 09/10/24 15:54 BP 140/87 H 09/10/24 15:54 Pulse Ox 90 L 09/10/24 15:54 O2 Del Method High Flow Nasal C annula 09/10/24 15:54 O2 Flow Rate 7 09/10/24 15:14 Oxygen Flow Rate 3 09/10/24 13:57 BMI result Body Mass Index 31.7 GENERAL APPEARANCE: On high-flow oxygen. Appears comfortable. NECK: no carotid bruit, mild jugular venous distention. SKIN: no suspicious lesions, warm and dry. HEART: no murmurs, regular rate and rhythm. Tachycardic. LUNGS: clear to auscultation anteriorly. ABDOMEN: soft, nontender. EXTREMITIES: no edema. PERIPHERAL PULSES: equal. NEUROLOGIC: No gross deficits, AAO X 3 Objective Labs and Meds 09/10/24 14:20 09/10/24 14:20 Lab results: Laboratory Results - last 24 hr 09/10/24 09/10/24 09/10/24 14:19 14:20 14:27 WBC 23.5 H RBC 5.76 H Hgb 17.1 H Hct 50.1 H MCV 87.0 MCH 29.7 MCHC 34.1 RDW 13.8 Plt Count 359 MPV 11.2 Immature Gran % (Auto) 0.6 H Neut % (Auto) 87.5 H Lymph % (Auto) 6.3 L [place] % (Auto) 5.2 Eos % (Auto) 0.2 Baso % (Auto) 0.2 Lymph # (Auto) 1.5 [place] # (Auto) 1.2 Eos # (Auto) 0.0 Baso # (Auto) 0.1 Abs Immat Gran (auto) 0.13 H Absolute Neuts (auto) 20.6 H Absolute Nucleated RBC 0.000 Nucleated RBC % (auto) 0.0 Smear Tech's Comments VERIFIED PT INR aPTT Heparin Protocol VBG pH 7.33 VBG pCO2 44 VBG pO2 28 VBG HCO3 23 VBG O2 Saturation 33.0 VBG Base Excess -2.2 Sodium 135 Potassium 4.0 Chloride 99 Carbon Dioxide 22 Anion Gap 18 BUN 14 Creatinine 0.72 Estim Creat Clear Calc 81.6 Estimated GFR > 60 Random Glucose 162 H Lactic Acid Calcium 9.6 Magnesium 1.8 Total Bilirubin 0.6 Direct Bilirubin 0.2 AST 54 H ALT 33 H Alkaline Phosphatase 110 Troponin I High Sens 3385.0 H* C-Reactive Protein 2.28 H B-Natriuretic Peptide 805 H Total Protein 8.3 H Albumin 4.5 Lipase 11 Procalcitonin 0.04 Influenza Type A (PCR) NEGATIVE Influenza Type B (PCR) NEGATIVE RSV RNA Qual (PCR) NEGATIVE SARS-CoV-2 RNA (RT-PCR) NEGATIVE 09/10/24 09/10/24 15:04 15:32 WBC RBC Hgb Hct MCV MCH MCHC RDW Plt Count MPV Immature Gran % (Auto) Neut % (Auto) Lymph % (Auto) [place] % (Auto) Eos % (Auto) Baso % (Auto) Lymph # (Auto) [place] # (Auto) Eos # (Auto) Baso # (Auto) Abs Immat Gran (auto) Absolute Neuts (auto) Absolute Nucleated RBC Nucleated RBC % (auto) Smear Tech's Comments PT 13.8 H INR 1.2 H aPTT Heparin Protocol 33.9 L VBG pH VBG pCO2 VBG pO2 VBG HCO3 VBG O2 Saturation VBG Base Excess Sodium Potassium Chloride Carbon Dioxide Anion Gap BUN Creatinine Estim Creat Clear Calc Estimated GFR Random Glucose Lactic Acid 4.2 H* Calcium Magnesium Total Bilirubin Direct Bilirubin AST ALT Alkaline Phosphatase Troponin I High Sens C-Reactive Protein B-Natriuretic Peptide Total Protein Albumin Lipase Procalcitonin Influenza Type A (PCR) Influenza Type B (PCR) RSV RNA Qual (PCR) SARS-CoV-2 RNA (RT-PCR) Imaging Radiologist's impression: Impressions Chest X-Ray 09/10/24 14:01 IMPRESSION: Cardiomegaly, mild pulmonary vascular congestion, and tiny bilateral pleural effusions. Electronically signed by: Adama Diez MD 09/10/2024 02:33 PM EDT Assessment and Plan (1) NSTEMI (non-ST elevated myocardial infarction): Status: Acute (2) Cardiomyopathy: Status: Acute Plan 63 year female presenting with shortness of breath. Her was sick and she also got sick after him. Chest x-ray is showing bilateral interstitial changes with fluid in the fissure. Elevated BNP and elevated troponin levels. Echocardiography is showing takotsubo cardiomyopathy. Likely issue is sepsis due to viral or bacterial cause leading to stress-induced myopathy. Takotsubo explains the elevated BNP and troponin level. For labeling someone takotsubo cardiomyopathy, angiography is required. I think right now I would favor continuing heparin at least for 48 hours. Give her baby aspirin. 20 mg IV Lasix. Please do not try to slow her down with beta-blue or calcium channel blue. She has [id number] LV dysfunction and tachycardia is compensatory currently. We will follow along with you. Thank you for allowing me to participate in the care of your patient. Please feel free to contact me if you have any questions. Procedures Date of Service Date of Service: 09/10/24
[2024-09-10] MEDS: Furosemide 20 MG/2 ML VIAL IVPUSH (16:10)
[2024-09-10] MEDS: iohexoL 350 MG/ML 100 ML INFUS..BTL IV (16:39)
[2024-09-10 17:03] LABS: Appearance Urine Clear; Color Urine Yellow; Glucose Urine UA Negative (Negative); Leukocyte Esterase Urine Moderate (2+) (Negative); Nitrite Urine Negative (Negative); PH 5.5 (5.0-9.0); Specific Gravity - Urine 1.015 (1.005-1.025); UMIC TRIGGER UACC YES; Urine Blood Negative (Negative); Urine Ketones 40 mg/dL (Negative); Urine Protein Negative (Neg-Trace)
--- NOTE | 2024-09-10 17:07 | PC.NURSE ---
Patient on high flow 02, reports feels as though she is breathing better. Bedside echo obtained , cardiology at bedside. Purewick placed. Patient remains tacycardic, provider aware.
[2024-09-10 17:08] LABS: Reflex Lactate? Lactic Acid Added
[2024-09-10 17:08] LABS: Bacteria Urine Trace (None Seen); Hyaline Casts Urine 0-2 /LPF (0-2); RBC Urine 0-2 /HPF (0-2); UACC Culture Trigger YES
[2024-09-10 17:39] LABS: ~Lactic Acid-LAB USE ONLY 2.8 mmol/L (0.5-2.0)
--- NOTE | 2024-09-10 18:40 | P.HPHOSP_ITS ---
History of Present Illness Date of Service: 09/10/24 Attending physician on admission: [facility] Chief Complaint: Cough, chest tightness, shortness of breath 63 yo female with PMH of heavy smoking though did quit 10 to 12 years ago, COPD not on home O2 who traveled to [place] (08/29 to 09/03) with her boyfriend who is also ill and was in our ER with reported negative work up. The patient notes over the past few days she has been having chills, dyspnea, feels congested and her chest is tight with coarse productive cough. Today after taking him home and situating him she notes she felt worse and more dyspneic with associated chest tightness. Dyspnea worse with exertion. She presented to an urgent care where oximetry was 79% on room air and was subsequently transferred to the ED for further evaluation and management. EN route, EMS gave a DuoNeb and placed her on 5 L nasal cannula satting 88%. Due to increased work of breathing and persistent hypoxia, patient was transitioned to high-flow O2 and is now satting 91%. Since arrival, patient has been tachycardic to 126, in sinus rhythm, and tachypneic. Blood pressure stable, afebrile. She has a leukocytosis of 23.5. H/H 17.1/50.1%, baseline unknown. Renal function electrolyte levels normal. Initial lactic acid 4.2, repeat 2.8. AST 54, ALT 33. Initial troponin 3385, repeat 3195. BNP 805. CRP 2.28. Procalcitonin 0.04. Urinalysis with 2+ leukocytes, positive urinary sediment, trace bacteria. Negative for COVID-19, RSV, influenza. Full viral respiratory panel pending. CTA of the chest negative for pulmonary embolism but shows mild to moderate pulmonary edema with multifocal pneumonia though possible given history of severe emphysema. EKG shows sinus tachycardia with T-wave inversions in the precordial leads. No ELVIN. Cardiology evaluated patient at bedside and performed bedside echocardiogram which he reports shows at least moderate LV systolic dysfunction with classic takotsubo like changes. In the ED, has been given IV ceftriaxone, IV Levaquin, IV methylprednisolone, albuterol/DuoNeb and has been started on heparin drip per protocol at the recommendation of Cardiology. Review of Systems 2 Review of Systems: Yes all other systems are reviewed and are negative [facility] Medical History (Updated 09/10/24 @ 18:54 by ALINA Spivey) COPD exacerbation Urinary tract infection Social History Patient Tobacco Use Status: Former Tobacco user Smoked in Last 30 Days: No Use of substances other than those prescribed or required for medical reasons: No Advance Directives: No Advance Directives Information Provided: Yes Meds Allergies Allergy/AdvReac Type Severity Reaction Status Date / Time codeine Allergy Unknown Verified 09/10/24 13:59 Active Medications: Current Medications Heparin Sodium (Porcine) (Heparin Sodium,Porcine 5,000 Unit/Ml Vial) 3,400 unit 40 unit/kg (3400 unit) IVPUSH PROTOCOL BOLUS PRN; Protocol PRN Reason: 40 unit/kg - Heparin Protocol Heparin Sodium (Porcine) (Heparin Sodium,Porcine 5,000 Unit/Ml Vial) 6,700 unit 80 unit/kg (6700 unit) IVPUSH PROTOCOL BOLUS PRN; Protocol PRN Reason: 80 unit/kg - Heparin Protocol Heparin Sodium/Sodium Chloride (Heparin Sodium,Porcine/1/2ns) 25,000 unit in 250 mls @ 0 mls/hr IVCONT .Q0M [facility]; Protocol Last Admin: 09/10/24 15:37 Dose: 11.92 units/kg/hr, 10 mls/hr Home Medications ?Medication ?Instructions ?Recorded ?Confirmed ?Last Taken ?Type No Known Home Meds 09/10/24 09/10/24 Unknown History Physical Exam 2 Vital Signs and Narrative: Vital Signs: Last Vital Signs Temp 97.4 F 09/10/24 18:12 Pulse 126 H 09/10/24 18:12 Resp 16 09/10/24 18:12 BP 115/73 09/10/24 18:12 Pulse Ox 90 L 09/10/24 18:12 O2 Del Method High Flow Nasal C annula 09/10/24 18:12 O2 Flow Rate 7 09/10/24 15:14 Oxygen Flow Rate 3 09/10/24 13:57 BMI result Body Mass Index 31.7 Constitutional - Awake and Alert, No apparent distress Eyes - PERRLA, EOMI Cardiovascular - S1S2, RRR, No edema Respiratory - Normal lung expansion, Normal respiratory effort, No respiratory distress, diminished lung sounds bilaterally with faint rhonchi noted in the right lung Gastrointestinal - NT / ND; +BS; No rebound or guarding Extremities - no calf tenderness bilaterally, no swelling Skin - Warm/Dry Neurological - Alert & oriented x3 Psychological - Appropriate affect Results Labs 09/10/24 14:20 09/10/24 14:20 Labs: Laboratory Results - last 24 hr 09/10/24 09/10/24 09/10/24 14:19 14:20 14:27 MCV 87.0 MCH 29.7 MCHC 34.1 RDW 13.8 Plt Count 359 MPV 11.2 Immature Gran % (Auto) 0.6 H Neut % (Auto) 87.5 H Lymph % (Auto) 6.3 L [place] % (Auto) 5.2 Eos % (Auto) 0.2 Baso % (Auto) 0.2 Lymph # (Auto) 1.5 [place] # (Auto) 1.2 Eos # (Auto) 0.0 Baso # (Auto) 0.1 Abs Immat Gran (auto) 0.13 H Absolute Neuts (auto) 20.6 H Absolute Nucleated RBC 0.000 Nucleated RBC % (auto) 0.0 Smear Tech's Comments VERIFIED PT INR aPTT Heparin Protocol VBG pH 7.33 VBG pCO2 44 VBG pO2 28 VBG HCO3 23 VBG O2 Saturation 33.0 VBG Base Excess -2.2 Anion Gap 18 Estim Creat Clear Calc 81.6 Estimated GFR > 60 Random Glucose 162 H Lactic Acid Lactic Acid F/U @ 2Hr Calcium 9.6 Magnesium 1.8 Total Bilirubin 0.6 Direct Bilirubin 0.2 AST 54 H ALT 33 H Alkaline Phosphatase 110 C-Reactive Protein 2.28 H B-Natriuretic Peptide 805 H Total Protein 8.3 H Albumin 4.5 Lipase 11 Procalcitonin 0.04 Urine Color Urine Appearance Urine pH Ur Specific [place] Urine Protein Urine Glucose (UA) Urine Ketones Urine Blood Urine Nitrite Ur Leukocyte Esterase Urine RBC Urine WBC Ur Squamous Epith Cells Urine Bacteria Hyaline Casts Influenza Type A (PCR) NEGATIVE Influenza Type B (PCR) NEGATIVE RSV RNA Qual (PCR) NEGATIVE SARS-CoV-2 RNA (RT-PCR) NEGATIVE 09/10/24 09/10/24 09/10/24 15:04 15:32 16:52 MCV MCH MCHC RDW Plt Count MPV Immature Gran % (Auto) Neut % (Auto) Lymph % (Auto) [place] % (Auto) Eos % (Auto) Baso % (Auto) Lymph # (Auto) [place] # (Auto) Eos # (Auto) Baso # (Auto) Abs Immat Gran (auto) Absolute Neuts (auto) Absolute Nucleated RBC Nucleated RBC % (auto) Smear Tech's Comments PT 13.8 H INR 1.2 H aPTT Heparin Protocol 33.9 L VBG pH VBG pCO2 VBG pO2 VBG HCO3 VBG O2 Saturation VBG Base Excess Anion Gap Estim Creat Clear Calc Estimated GFR Random Glucose Lactic Acid 4.2 H* Lactic Acid F/U @ 2Hr Calcium Magnesium Total Bilirubin Direct Bilirubin AST ALT Alkaline Phosphatase C-Reactive Protein B-Natriuretic Peptide Total Protein Albumin Lipase Procalcitonin Urine Color Yellow Urine Appearance Clear Urine pH 5.5 Ur Specific [place] 1.015 Urine Protein Negative Urine Glucose (UA) Negative Urine Ketones 40 Urine Blood Negative Urine Nitrite Negative Ur Leukocyte Esterase Moderate (2+) H Urine RBC 0-2 Urine WBC 11-20 H Ur Squamous Epith Cells 6-10 Urine Bacteria Trace Hyaline Casts 0-2 Influenza Type A (PCR) Influenza Type B (PCR) RSV RNA Qual (PCR) SARS-CoV-2 RNA (RT-PCR) 09/10/24 17:12 MCV MCH MCHC RDW Plt Count MPV Immature Gran % (Auto) Neut % (Auto) Lymph % (Auto) [place] % (Auto) Eos % (Auto) Baso % (Auto) Lymph # (Auto) [place] # (Auto) Eos # (Auto) Baso # (Auto) Abs Immat Gran (auto) Absolute Neuts (auto) Absolute Nucleated RBC Nucleated RBC % (auto) Smear Tech's Comments PT INR aPTT Heparin Protocol VBG pH VBG pCO2 VBG pO2 VBG HCO3 VBG O2 Saturation VBG Base Excess Anion Gap Estim Creat Clear Calc Estimated GFR Random Glucose Lactic Acid Lactic Acid F/U @ 2Hr 2.8 H* Calcium Magnesium Total Bilirubin Direct Bilirubin AST ALT Alkaline Phosphatase C-Reactive Protein B-Natriuretic Peptide Total Protein Albumin Lipase Procalcitonin Urine Color Urine Appearance Urine pH Ur Specific [place] Urine Protein Urine Glucose (UA) Urine Ketones Urine Blood Urine Nitrite Ur Leukocyte Esterase Urine RBC Urine WBC Ur Squamous Epith Cells Urine Bacteria Hyaline Casts Influenza Type A (PCR) Influenza Type B (PCR) RSV RNA Qual (PCR) SARS-CoV-2 RNA (RT-PCR) Imaging Radiologist's Impressions: Impressions Chest X-Ray 09/10/24 14:01 IMPRESSION: Cardiomegaly, mild pulmonary vascular congestion, and tiny bilateral pleural effusions. Electronically signed by: Adama Diez MD 09/10/2024 02:33 PM EDT RP Assessment and Plan (1) Acidosis, lactic: Status: Acute (2) Non-ST elevation NM (NSTEMI): Status: Acute (3) Takotsubo cardiomyopathy: Status: Acute (4) Acute hypoxemic respiratory failure: Status: Acute (5) Multifocal pneumonia: Status: Acute (6) COPD exacerbation: Status: Acute Plan 63 yo female with PMH of heavy smoking though did quit 10 to 12 years ago, COPD not on home O2 who traveled to [place] (08/29 to 09/03) with her boyfriend who is also ill and was in our ER with reported negative work up will be admitted for further management of acute hypoxemic respiratory failure in the setting of CHF exacerbation secondary to takotsubo cardiomyopathy as well as multifocal pneumonia with sepsis Acute hypoxemic respiratory failure Multifocal in the setting of CHF exacerbation, URI, and multifocal pneumonia Wean from high-flow oxygen as tolerated Viral respiratory panel pending Treat per below Acute CHF exacerbation/takotsubo cardiomyopathy Likely induced by viral or bacterial illness leading to stress induced myopathy Bedside echocardiogram showed at least moderate systolic LV dysfunction per Cardiology CTA of the chest shows pulmonary edema IV Lasix 20 mg daily Cardiac diet Strict I&O Cardiology consult Follow renal function electrolyte levels NSTEMI Troponins x2 flat but >3000 EKG with T-wave inversions in the precordial leads but no ELVIN Heparin drip per protocol recommended by Cardiology Continue baby aspirin No beta-blue or calcium channel blue per Cardiology Monitor on telemetry Cardiology consult Multifocal pneumonia with sepsis Leukocytosis 23.2, tachypnea. Tachycardia secondary to cardiomyopathy. Lactic acidosis due to hypoperfusion from hypoxia, no severe sepsis/shock IV ceftriaxone azithromycin (initiated 09/10) Likely secondary to viral URI Strep pneumo antigen, Legionella antigen COPD exacerbation In setting of above IV methylprednisolone 40 mg b.i.d. DuoNebs q.4h while awake Guaifenesin p.r.n. DVT prophylaxis-heparin per protocol Full code Given patient's acute hypoxemic respiratory failure secondary to CHF exacerbation with takotsubo cardiomyopathy as well as NSTEMI, patient requires very close cardiac monitoring as well as monitoring of hemodynamics. She will require treatment with heparin drip and needs to be weaned from high-flow O2. She will require expert consultation as well as antibiotics for multifocal pneumonia with sepsis. Quality Stroke Does the patient have a stroke diagnosis?: No VTE Prior VTE?: No VTE Risk Level:: Medical - moderate - high VTE Device Contraindication: Treatment Not Indicated VTE Drug Contraindication: N/A - Med Ordered
--- NOTE | 2024-09-10 18:46 | PHA.MEDREC ---
Addendum entered by Radha Rubio RPh 09/10/24 18:48: [facility] reviewed Original Note: Pharmacy Consult ? Medication Reconciliation Pharmacy has completed the medication reconciliation. Patient states she is not taking any medications.
[2024-09-10 19:15] LABS: Reflex Lactate? 2 Y
[2024-09-10] MEDS: Albuterol/Iprat 2.5/0.5MG 3 ML AMPUL.NEB INHALE (19:28)
[2024-09-10] MEDS: Azithromycin 500 MG in 0.9 % Sodium Chloride 250 ML 125 MG IV (19:50)
[2024-09-10 22:14] LABS: PTT Heparin Drip 69.7 SEC (53-77.9)
[2024-09-10] MEDS: Melatonin 3 MG TABLET 6 MG PO (22:17)
[2024-09-10] MEDS: Acetaminophen 325 MG TABLET 650 MG PO (22:17)
[2024-09-11] VITALS (13 sets, daily range): BP systolic 106–121; BP diastolic 67–84; PULSE 89–119; RESP 14–20; TEMP 36.1–37.5; O2SAT 91–95
[2024-09-11 04:50] LABS: PTT Heparin Drip 53.1 SEC (53-77.9)
[2024-09-11] MEDS: 0.9 % Sodium Chloride Flush 3 ML SYRINGE IVFLUSH ×3 (05:37→20:32)
[2024-09-11] MEDS: methylPREDNISolone Sod Succ 40 MG/ML VIAL IVPUSH ×2 (05:37→16:24)
[2024-09-11] MEDS: Albuterol/Iprat 2.5/0.5MG 3 ML AMPUL.NEB INHALE ×5 (05:55→20:38)
[2024-09-11 07:33] LABS: MANUAL DIFF FLAG NO
[2024-09-11 07:47] LABS: INTERNATIONAL NORM RATIO 1.4 (0.9-1.1)
[2024-09-11 07:50] LABS: Anion Gap 14 (12-20); Blood Urea Nitrogen 15 mg/dL (9-16); Calcium 9.1 mg/dL (8.4-10.2); Carbon Dioxide 24 mmol/L (22-29); Chloride 102 mmol/L (96-108); Creatinine Clr Calc Pharmacy 83.9; Estimated Glomerular Filt Rate > 60; Glucose Random 136 mg/dL (60-115); Potassium 3.8 mmol/L (3.3-5.1); Sodium 136 mmol/L (135-145)
[2024-09-11 07:51] LABS: Basophils Percent Auto 0.2 % (0-2); Eosinophils Percent Auto 0.1 % (0-4); Hematocrit 45.1 % (37.0-47.0); Hemoglobin 15.3 g/dl (12.0-16.0); Imm Gran Abs Auto 0.16 X10*3/uL (0.00-0.03); Imm Gran Pct Auto 0.9 % (0.0-0.4); Lymphocytes Absolute Auto 1.6 X10*3/uL (1.2-4.9); Lymphocytes Percent Auto 9.2 % (20-40); Mean Corpuscular HGB Conc 33.9 g/dl (31.0-35.0); Mean Corpuscular Hemoglobin 29.4 pg (27.0-33.0); Mean Corpuscular Volume 86.6 fL (80.0-98.0); Mean Platelet Volume 11.6 fL (9.4-12.3); Monocytes Percent Auto 5.6 % (2-11); Neutrophils Absolute Auto 14.3 x10*3/uL (2.0-8.3); Platelet Count 281 X10*3/uL (160-400); Red Blood Count 5.21 X10*6/uL (4.20-5.50); White Blood Count 17.1 X10*3/uL (4.8-10.8)
[2024-09-11] MEDS: guaiFENesin 200 MG/10 ML 10 ML LIQUID PO ×2 (07:51→14:29)
[2024-09-11] MEDS: Furosemide 20 MG/2 ML VIAL IVPUSH (07:51)
[2024-09-11] MEDS: Aspirin 81 MG TAB.CHEW PO (07:51)
[2024-09-11] MEDS: Acetaminophen 325 MG TABLET 650 MG PO ×3 (07:53→20:31)
--- NOTE | 2024-09-11 12:53 | MHC.CM.PN ---
Pt lives with her S.O., she does not have a PCP, brochure given, she does not have any home health services or DME. She is still working fulltime. Financial counselors will assist with insurance, she does not currently have any, is eligible to Medicare. She cam arrange a ride home at [place]. HCP form to be completed here and added to chart. DCP: home, self care, CM to follow for DC needs.
[2024-09-11 12:54] LABS: Adenovirus PCR Not Detected (Not Detect.); Bordetella parapertussis PCR Not Detected (Not Detect.); Bordetella pertussis PCR Not Detected (Not Detect.); Chlamydia pneumoniae PCR Not Detected (Not Detect.)
[2024-09-11 12:55] LABS: Coronavirus 229E PCR Not Detected (Not Detect.); Coronavirus HKU1 PCR Not Detected (Not Detect.); Human metapneumovirus PCR Detected (Not Detect.)
[2024-09-11 12:56] LABS: Coronavirus NL63 PCR Not Detected (Not Detect.); Coronavirus OC43 PCR Not Detected (Not Detect.); Influenza A PCR Not Detected (Not Detect.); Influenza B PCR Not Detected (Not Detect.); Mycoplasma pneumoniae PCR Not Detected (Not Detect.); Parainfluenza 1 PCR Not Detected (Not Detect.); Parainfluenza 2 PCR Not Detected (Not Detect.); Parainfluenza 3 PCR Not Detected (Not Detect.); Parainfluenza 4 PCR Not Detected (Not Detect.); RSV PCR Not Detected (Not Detect.); Rhino/Enterovirus PCR Not Detected (Not Detect.); SARS-CoV-2 PCR Not Detected (Not Detect.)
--- NOTE | 2024-09-11 14:12 | P.CONPL_ITS ---
History of Present Illness History of Present Illness Consult date: 09/11/24 Chief complaint: Hypoxia Narrative: 63-year-old lady, former 40+ pack-year smoker, quit 2014 with underlying COPD not on home O2 admitted on 09/10/2024 with rapid onset of dyspnea that worse with exertion and hypoxia. CT angio chest with no evidence of pulmonary emboli or lobar pneumonia, but significant emphysema. Further workup significant for elevated troponin and BNP level. Bedside echocardiogram with concern for takotsubo cardiomyopathy. Being evaluated by Cardiology service and currently on heparin drip. Patient reports slowly improving dyspnea and no other respiratory symptoms. Review of Systems 2 Constitutional: Constitutional: Denies daytime sleepiness, Denies excessive sweating, Denies fatigue, Denies fever(s), Denies lethargy, Denies malaise, Denies night sweats, Denies snoring and Denies weight loss Eyes: Eyes: Denies blurry vision and Denies itchy eyes ENT: Denies nasal congestion, Denies post nasal drip, Denies sinus pain, Denies sinus pressure and Denies other ( Thrush) Cardiovascular: Cardiovascular: Denies chest pain, Denies pedal edema, Reports dyspnea, Reports dyspnea on exertion, Denies orthopnea and Denies paroxysmal nocturnal dyspnea Respiratory: Respiratory: Denies cough, Denies hemoptysis, Denies excessive phlegm production, Reports dyspnea, Reports dyspnea on exertion, Denies snoring and Denies wheezing Gastrointestinal: Gastrointestinal: Denies abdominal pain and Denies heartburn Musculoskeletal: Musculoskeletal: Denies myalgias, Denies arthralgias and Denies joint swelling Integumentary/Breasts: Skin/Breast: Denies rash Neurologic: Denies memory loss and Denies seizure-like activity Psychiatric: Psychiatric: Denies abnormal sleep pattern, Denies anxiety and Denies memory loss Endocrine: Endocrine: Denies excessive sweating, Denies fatigue and Denies heat intolerance Hematologic/Lymphatic: Hematologic/Lymphatic: Denies easy bruising Allergic/Immunologic: Allergic/Immunologic: Denies itchy eyes, Denies seasonal rhinorrhea and Denies wheezing PMFSH Past Medical History Medical History (Updated 09/10/24 @ 18:54 by ALINA Spivey) COPD exacerbation Urinary tract infection Social History Social History Household Members: Significant Other Housing: House Patient Tobacco Use Status: Former Tobacco user Smoked in Last 30 Days: No Use of substances other than those prescribed or required for medical reasons: No Currently Displaying Signs/Symptoms of Drug Intoxication Withdrawal: No Advance Directives: No Advance Directives Information Provided: Yes Recently lost weight without trying: No Patient : No service: No Meds Allergies Allergy/AdvReac Type Severity Reaction Status Date / Time codeine Allergy Unknown Verified 09/10/24 13:59 Active Medications: Current Medications Acetaminophen (Acetaminophen 325 Mg Tablet) 650 mg PO Q6H PRN PRN Reason: Pain, Mild 1-3,fever,headache Last Admin: 09/11/24 07:53 Dose: 650 mg Albuterol/Ipratropium (Albuterol/Iprat 2.5/0.5mg 3 Ml Ampul.Neb) 3 ml INHALE RQ4H WHILE AWAKE DIONNE Last Admin: 09/11/24 11:44 Dose: 3 ml Albuterol/Ipratropium (Albuterol/Iprat 2.5/0.5mg 3 Ml Ampul.Neb) 3 ml INHALE Q4H PRN PRN Reason: Wheezing Last Admin: 09/11/24 05:55 Dose: 3 ml Aspirin (Aspirin 81 Mg Tab.Chew) 81 mg PO DAILY DIONNE Last Admin: 09/11/24 07:51 Dose: 81 mg Calcium Carbonate (Calcium Carbonate 750 Mg Tab.Chew) 750 mg PO Q4H PRN PRN Reason: Heartburn Ceftriaxone Sodium (Ceftriaxone Sodium 1 Gm Vial) 1 gm IVPUSH Q24H DIONNE Furosemide (Furosemide 20 Mg/2 Ml Vial) 20 mg IVPUSH DAILY DIONNE; Protocol Last Admin: 09/11/24 07:51 Dose: 20 mg Guaifenesin (Guaifenesin 200 Mg/10 Ml 10 Ml Liquid) 10 ml PO Q4H PRN PRN Reason: Cough Last Admin: 09/11/24 07:51 Dose: 10 ml Heparin Sodium (Porcine) (Heparin Sodium,Porcine 5,000 Unit/Ml Vial) 3,400 unit 40 unit/kg (3400 unit) IVPUSH PROTOCOL BOLUS PRN; Protocol PRN Reason: 40 unit/kg - Heparin Protocol Heparin Sodium (Porcine) (Heparin Sodium,Porcine 5,000 Unit/Ml Vial) 6,700 unit 80 unit/kg (6700 unit) IVPUSH PROTOCOL BOLUS PRN; Protocol PRN Reason: 80 unit/kg - Heparin Protocol Heparin Sodium/Sodium Chloride (Heparin Sodium,Porcine/1/2ns) 25,000 unit in 250 mls @ 0 mls/hr IVCONT .Q0M [facility]; Protocol Last Titration: 09/11/24 05:01 Dose: 11.92 units/kg/hr, 10 mls/hr Azithromycin 500 mg/ Sodium (Chloride) 250 mls @ 125 mls/hr IV Q24H [facility] Last Infusion: 09/10/24 22:02 Dose: Infused Magnesium Hydroxide (Milk Of Magnesia 30 Ml Oral.Susp) 30 ml PO DAILY PRN PRN Reason: Constipation Melatonin (Melatonin 3 Mg Tablet) 6 mg PO BEDTIME PRN PRN Reason: Insomnia Last Admin: 09/10/24 22:17 Dose: 6 mg Methylprednisolone Sodium Succinate (Methylprednisolone Sod Succ 40 Mg/Ml Vial) 40 mg IVPUSH Q12H [facility] Last Admin: 09/11/24 05:37 Dose: 40 mg Sodium Chloride (0.9 % Sodium Chloride Flush 3 Ml Syringe) 3 ml IVFLUSH QSHIFT [facility] Last Admin: 09/11/24 08:43 Dose: Not Given Home Medications ?Medication ?Instructions ?Recorded ?Confirmed ?Last Taken ?Type No Known Home Meds 09/10/24 09/10/24 Unknown History Physical Exam 2 Vital Signs: Vital Signs: Last Vital Signs Temp 97.0 F 09/11/24 11:12 Pulse 94 09/11/24 11:44 Resp 20 09/11/24 11:44 BP 120/76 09/11/24 11:12 Pulse Ox 92 09/11/24 11:12 O2 Del Method High Flow Nasal C annula 09/11/24 11:12 O2 Flow Rate 50 09/11/24 11:12 FiO2 60 09/11/24 11:12 Oxygen Flow Rate 3 09/10/24 13:57 BMI result Body Mass Index 31.7 Const: General: no acute distress and alert Nutritional Appearance: not obese Orientation/consciousness: Other orientation findings ( oriented) HEENT: Head: Yes atraumatic Eyes: General: appearance normal, both eyes and all related structures S clerae: sclerae normal EOM: EOMs intact bilaterally Neck: Neck: Yes supple Lymphatic: no lymphadenopathy noted Resp: Effort & Inspection: normal respiratory effort and no use of accessory muscles Auscultation: clear to auscultation bilaterally Cardio: Rate: regular rate Rhythm: regular rhythm Heart sounds: no gallops, no murmurs and no rubs Skin: General skin exam: other ( warm) Extrem: General: No clubbing, No cyanosis and No edema Results Laboratory Findings 09/11/24 06:58 09/11/24 06:58 ABG, PT/INR, D-dimer: PT/INR, D-dimer PT 16.0 SEC (10.9-12.4) H 09/11/24 06:58 INR 1.4 (0.9-1.1) H 09/11/24 06:58 Abnormal lab findings: Abnormal Labs 09/10/24 09/10/24 09/10/24 14:19 14:20 15:04 WBC 23.5 H RBC 5.76 H Hgb 17.1 H Hct 50.1 H Immature Gran % (Auto) 0.6 H Neut % (Auto) 87.5 H Lymph % (Auto) 6.3 L Abs Immat Gran (auto) 0.13 H Absolute Neuts (auto) 20.6 H PT INR aPTT Heparin Protocol Random Glucose 162 H Lactic Acid 4.2 H* Lactic Acid F/U @ 2Hr Lactic Acid F/U @ 4Hr AST 54 H ALT 33 H Troponin I High Sens 3385.0 H* C-Reactive Protein 2.28 H B-Natriuretic Peptide 805 H Total Protein 8.3 H Ur Leukocyte Esterase Urine WBC Human Metapneumovir PCR 09/10/24 09/10/24 09/10/24 15:32 16:19 16:52 WBC RBC Hgb Hct Immature Gran % (Auto) Neut % (Auto) Lymph % (Auto) Abs Immat Gran (auto) Absolute Neuts (auto) PT 13.8 H INR 1.2 H aPTT Heparin Protocol 33.9 L Random Glucose Lactic Acid Lactic Acid F/U @ 2Hr Lactic Acid F/U @ 4Hr AST ALT Troponin I High Sens C-Reactive Protein B-Natriuretic Peptide Total Protein Ur Leukocyte Esterase Moderate (2+) H Urine WBC 11-20 H Human Metapneumovir PCR Detected A 09/10/24 09/10/24 09/11/24 17:12 19:34 06:58 WBC 17.1 H RBC Hgb Hct Immature Gran % (Auto) 0.9 H Neut % (Auto) 84.0 H Lymph % (Auto) 9.2 L Abs Immat Gran (auto) 0.16 H Absolute Neuts (auto) 14.3 H PT 16.0 H INR 1.4 H aPTT Heparin Protocol Random Glucose 136 H Lactic Acid Lactic Acid F/U @ 2Hr 2.8 H* Lactic Acid F/U @ 4Hr 3.0 H* AST ALT Troponin I High Sens 3195.0 H* C-Reactive Protein B-Natriuretic Peptide Total Protein Ur Leukocyte Esterase Urine WBC Human Metapneumovir PCR Microbiology: Microbiology 09/10/24 Unknown Urine clean catch - Clean Catch Midstream Urine Culture - Preliminary No growth to date. Assessment and Plan (1) Acute hypoxemic respiratory failure: Status: Acute (2) COPD exacerbation: Status: Acute (3) Cardiomyopathy: Status: Acute Plan Impression: 63-year-old lady admitted with rapid onset hypoxia on background of no COPD with no evidence of pulmonary emboli, but suspicion for acute stress cardiomyopathy, now improving slowly, though still requiring high-flow nasal cannula supplementation to maintain normal oximetry. Recommendation: Agree with current therapeutic regimen including nebulized bronchodilators. Consider discontinuation of systemic glucocorticoids. It appears patient has acute stress cardiomyopathy is a major etiology her hypoxia that is slowly improving. Suggest starting on Anoro. Would require further outpatient pulmonary follow-up for underlying COPD. Procedures Date of Service Date of Service: 09/11/24
--- NOTE | 2024-09-11 14:21 | P.PNIM_ITS ---
Subjective Subjective Date of Service: 09/11/24 Interval History: pneumonia ,elevated trops Review of Systems denies any chest pain sob seems improving Physical Exam 2 Vital Signs: Vital Signs: Last Vital Signs Temp 97.0 F 09/11/24 11:12 Pulse 94 09/11/24 11:44 Resp 20 09/11/24 11:44 BP 120/76 09/11/24 11:12 Pulse Ox 92 09/11/24 11:12 O2 Del Method High Flow Nasal C annula 09/11/24 11:12 O2 Flow Rate 50 09/11/24 11:12 FiO2 60 09/11/24 11:12 Oxygen Flow Rate 3 09/10/24 13:57 BMI result Body Mass Index 31.7 Appearance: Alert.? Oriented X3.? cvs: rrr, [id number] . res: air entry diminshed,few scattered rales. abd: no rebound or guarding ,nt, bs present. ext pulses present , no cyanosis. neuro: nonfocal. Objective Data Active Medications Acetaminophen (Acetaminophen 325 Mg Tablet) 650 mg PO Q6H PRN PRN Reason: Pain, Mild 1-3,fever,headache Last Admin: 09/11/24 07:53 Dose: 650 mg Documented By: RICKIE Albuterol/Ipratropium (Albuterol/Iprat 2.5/0.5mg 3 Ml Ampul.Neb) 3 ml INHALE RQ4H WHILE AWAKE [facility] Last Admin: 09/11/24 11:44 Dose: 3 ml Documented By: AUGUSTO Albuterol/Ipratropium (Albuterol/Iprat 2.5/0.5mg 3 Ml Ampul.Neb) 3 ml INHALE Q4H PRN PRN Reason: Wheezing Last Admin: 09/11/24 05:55 Dose: 3 ml Documented By: VICKEY Aspirin (Aspirin 81 Mg Tab.Chew) 81 mg PO DAILY DIONNE Last Admin: 09/11/24 07:51 Dose: 81 mg Documented By: RICKIE Calcium Carbonate (Calcium Carbonate 750 Mg Tab.Chew) 750 mg PO Q4H PRN PRN Reason: Heartburn Ceftriaxone Sodium (Ceftriaxone Sodium 1 Gm Vial) 1 gm IVPUSH Q24H DIONNE Furosemide (Furosemide 20 Mg/2 Ml Vial) 20 mg IVPUSH DAILY [facility]; Protocol Last Admin: 09/11/24 07:51 Dose: 20 mg Documented By: RICKIE Guaifenesin (Guaifenesin 200 Mg/10 Ml 10 Ml Liquid) 10 ml PO Q4H PRN PRN Reason: Cough Last Admin: 09/11/24 07:51 Dose: 10 ml Documented By: RICKIE Heparin Sodium (Porcine) (Heparin Sodium,Porcine 5,000 Unit/Ml Vial) 3,400 unit 40 unit/kg (3400 unit) IVPUSH PROTOCOL BOLUS PRN; Protocol PRN Reason: 40 unit/kg - Heparin Protocol Heparin Sodium (Porcine) (Heparin Sodium,Porcine 5,000 Unit/Ml Vial) 6,700 unit 80 unit/kg (6700 unit) IVPUSH PROTOCOL BOLUS PRN; Protocol PRN Reason: 80 unit/kg - Heparin Protocol Heparin Sodium/Sodium Chloride (Heparin Sodium,Porcine/1/2ns) 25,000 unit in 250 mls @ 0 mls/hr IVCONT .Q0M DIONNE; Protocol Last Titration: 09/11/24 05:01 Dose: 11.92 units/kg/hr, 10 mls/hr Documented By: PABLO Co-signed By: JORDIN Azithromycin 500 mg/ Sodium (Chloride) 250 mls @ 125 mls/hr IV Q24H [facility] Last Infusion: 09/10/24 22:02 Dose: Infused Documented By: PABLO Magnesium Hydroxide (Milk Of Magnesia 30 Ml Oral.Susp) 30 ml PO DAILY PRN PRN Reason: Constipation Melatonin (Melatonin 3 Mg Tablet) 6 mg PO BEDTIME PRN PRN Reason: Insomnia Last Admin: 09/10/24 22:17 Dose: 6 mg Documented By: PABLO Methylprednisolone Sodium Succinate (Methylprednisolone Sod Succ 40 Mg/Ml Vial) 40 mg IVPUSH Q12H [facility] Last Admin: 09/11/24 05:37 Dose: 40 mg Documented By: PABLO Sodium Chloride (0.9 % Sodium Chloride Flush 3 Ml Syringe) 3 ml IVFLUSH QSHIFT [facility] Last Admin: 09/11/24 08:43 Dose: Not Given Documented By: RICKIE Non-Admin Reason: IV Running Labs 09/11/24 06:58 09/11/24 06:58 Labs: Laboratory Results - last 24 hr 09/10/24 09/10/24 09/10/24 14:19 14:20 14:27 MCV 87.0 MCH 29.7 MCHC 34.1 RDW 13.8 Plt Count 359 MPV 11.2 Immature Gran % (Auto) 0.6 H Neut % (Auto) 87.5 H Lymph % (Auto) 6.3 L [place] % (Auto) 5.2 Eos % (Auto) 0.2 Baso % (Auto) 0.2 Lymph # (Auto) 1.5 [place] # (Auto) 1.2 Eos # (Auto) 0.0 Baso # (Auto) 0.1 Abs Immat Gran (auto) 0.13 H Absolute Neuts (auto) 20.6 H Absolute Nucleated RBC 0.000 Nucleated RBC % (auto) 0.0 Smear Tech's Comments VERIFIED Hold Purple Top PT INR aPTT Heparin Protocol VBG pH 7.33 VBG pCO2 44 VBG pO2 28 VBG HCO3 23 VBG O2 Saturation 33.0 VBG Base Excess -2.2 Anion Gap 18 Estim Creat Clear Calc 81.6 Estimated GFR > 60 Random Glucose 162 H Lactic Acid Lactic Acid F/U @ 2Hr Lactic Acid F/U @ 4Hr Calcium 9.6 Magnesium 1.8 Total Bilirubin 0.6 Direct Bilirubin 0.2 AST 54 H ALT 33 H Alkaline Phosphatase 110 C-Reactive Protein 2.28 H B-Natriuretic Peptide 805 H Total Protein 8.3 H Albumin 4.5 Lipase 11 Procalcitonin 0.04 Urine Color Urine Appearance Urine pH Ur Specific [place] Urine Protein Urine Glucose (UA) Urine Ketones Urine Blood Urine Nitrite Ur Leukocyte Esterase Urine RBC Urine WBC Ur Squamous Epith Cells Urine Bacteria Hyaline Casts Respiratory Panel Mu[place] Adenovirus (Rapid PCR) B.pert (TEM-PCR) B.parapertussis DNA PCR C. pneumoniae DNA (PCR) Coronavirus OC43 (PCR) Coronavirus HKU1 (PCR) Coronavirus 229E (PCR) Coronavirus NL63 (PCR) Human Metapneumovir PCR Influenza A (RT-PCR) Influenza Type A (PCR) NEGATIVE Influenza B (RT-PCR) Influenza Type B (PCR) NEGATIVE M. pneumoniae (PCR) Parainfluenza 1 (PCR) Parainfluenza 2 (PCR) Parainfluenza 3 (PCR) Parainfluenza 4 (PCR) RSV (PCR) RSV RNA Qual (PCR) NEGATIVE Entero/Rhino (PCR) SARS-CoV-2 RNA (RT-PCR) NEGATIVE 09/10/24 09/10/24 09/10/24 15:04 15:32 16:19 MCV MCH MCHC RDW Plt Count MPV Immature Gran % (Auto) Neut % (Auto) Lymph % (Auto) [place] % (Auto) Eos % (Auto) Baso % (Auto) Lymph # (Auto) [place] # (Auto) Eos # (Auto) Baso # (Auto) Abs Immat Gran (auto) Absolute Neuts (auto) Absolute Nucleated RBC Nucleated RBC % (auto) Smear Tech's Comments Hold Purple Top PT 13.8 H INR 1.2 H aPTT Heparin Protocol 33.9 L VBG pH VBG pCO2 VBG pO2 VBG HCO3 VBG O2 Saturation VBG Base Excess Anion Gap Estim Creat Clear Calc Estimated GFR Random Glucose Lactic Acid 4.2 H* Lactic Acid F/U @ 2Hr Lactic Acid F/U @ 4Hr Calcium Magnesium Total Bilirubin Direct Bilirubin AST ALT Alkaline Phosphatase C-Reactive Protein B-Natriuretic Peptide Total Protein Albumin Lipase Procalcitonin Urine Color Urine Appearance Urine pH Ur Specific [place] Urine Protein Urine Glucose (UA) Urine Ketones Urine Blood Urine Nitrite Ur Leukocyte Esterase Urine RBC Urine WBC Ur Squamous Epith Cells Urine Bacteria Hyaline Casts Respiratory Panel Mu[place] See Note Adenovirus (Rapid PCR) Not Detected B.pert (TEM-PCR) Not Detected B.parapertussis DNA PCR Not Detected C. pneumoniae DNA (PCR) Not Detected Coronavirus OC43 (PCR) Not Detected Coronavirus HKU1 (PCR) Not Detected Coronavirus 229E (PCR) Not Detected Coronavirus NL63 (PCR) Not Detected Human Metapneumovir PCR Detected A Influenza A (RT-PCR) Not Detected Influenza Type A (PCR) Influenza B (RT-PCR) Not Detected Influenza Type B (PCR) M. pneumoniae (PCR) Not Detected Parainfluenza 1 (PCR) Not Detected Parainfluenza 2 (PCR) Not Detected Parainfluenza 3 (PCR) Not Detected Parainfluenza 4 (PCR) Not Detected RSV (PCR) Not Detected RSV RNA Qual (PCR) Entero/Rhino (PCR) Not Detected SARS-CoV-2 RNA (RT-PCR) Not Detected 09/10/24 09/10/24 09/10/24 16:52 17:12 19:34 MCV MCH MCHC RDW Plt Count MPV Immature Gran % (Auto) Neut % (Auto) Lymph % (Auto) [place] % (Auto) Eos % (Auto) Baso % (Auto) Lymph # (Auto) [place] # (Auto) Eos # (Auto) Baso # (Auto) Abs Immat Gran (auto) Absolute Neuts (auto) Absolute Nucleated RBC Nucleated RBC % (auto) Smear Tech's Comments Hold Purple Top PT INR aPTT Heparin Protocol VBG pH VBG pCO2 VBG pO2 VBG HCO3 VBG O2 Saturation VBG Base Excess Anion Gap Estim Creat Clear Calc Estimated GFR Random Glucose Lactic Acid Lactic Acid F/U @ 2Hr 2.8 H* Lactic Acid F/U @ 4Hr 3.0 H* Calcium Magnesium Total Bilirubin Direct Bilirubin AST ALT Alkaline Phosphatase C-Reactive Protein B-Natriuretic Peptide Total Protein Albumin Lipase Procalcitonin Urine Color Yellow Urine Appearance Clear Urine pH 5.5 Ur Specific [place] 1.015 Urine Protein Negative Urine Glucose (UA) Negative Urine Ketones 40 Urine Blood Negative Urine Nitrite Negative Ur Leukocyte Esterase Moderate (2+) H Urine RBC 0-2 Urine WBC 11-20 H Ur Squamous Epith Cells 6-10 Urine Bacteria Trace Hyaline Casts 0-2 Respiratory Panel [place] Adenovirus (Rapid PCR) B.pert (TEM-PCR) B.parapertussis DNA PCR C. pneumoniae DNA (PCR) Coronavirus OC43 (PCR) Coronavirus HKU1 (PCR) Coronavirus 229E (PCR) Coronavirus NL63 (PCR) Human Metapneumovir PCR Influenza A (RT-PCR) Influenza Type A (PCR) Influenza B (RT-PCR) Influenza Type B (PCR) M. pneumoniae (PCR) Parainfluenza 1 (PCR) Parainfluenza 2 (PCR) Parainfluenza 3 (PCR) Parainfluenza 4 (PCR) RSV (PCR) RSV RNA Qual (PCR) Entero/Rhino (PCR) SARS-CoV-2 RNA (RT-PCR) 09/10/24 09/11/24 09/11/24 21:56 04:31 06:58 MCV 86.6 MCH 29.4 MCHC 33.9 RDW 14.0 Plt Count 281 MPV 11.6 Immature Gran % (Auto) 0.9 H Neut % (Auto) 84.0 H Lymph % (Auto) 9.2 L [place] % (Auto) 5.6 Eos % (Auto) 0.1 Baso % (Auto) 0.2 Lymph # (Auto) 1.6 [place] # (Auto) 1.0 Eos # (Auto) 0.0 Baso # (Auto) 0.0 Abs Immat Gran (auto) 0.16 H Absolute Neuts (auto) 14.3 H Absolute Nucleated RBC 0.000 Nucleated RBC % (auto) 0.0 Smear Tech's Comments Hold Purple Top SEE NOTE PT 16.0 H INR 1.4 H aPTT Heparin Protocol 69.7 D 53.1 D VBG pH VBG pCO2 VBG pO2 VBG HCO3 VBG O2 Saturation VBG Base Excess Anion Gap 14 Estim Creat Clear Calc 83.9 Estimated GFR > 60 Random Glucose 136 H Lactic Acid Lactic Acid F/U @ 2Hr Lactic Acid F/U @ 4Hr Calcium 9.1 Magnesium Total Bilirubin Direct Bilirubin AST ALT Alkaline Phosphatase C-Reactive Protein B-Natriuretic Peptide Total Protein Albumin Lipase Procalcitonin Urine Color Urine Appearance Urine pH Ur Specific [place] Urine Protein Urine Glucose (UA) Urine Ketones Urine Blood Urine Nitrite Ur Leukocyte Esterase Urine RBC Urine WBC Ur Squamous Epith Cells Urine Bacteria Hyaline Casts Respiratory Panel [place] Adenovirus (Rapid PCR) B.pert (TEM-PCR) B.parapertussis DNA PCR C. pneumoniae DNA (PCR) Coronavirus OC43 (PCR) Coronavirus HKU1 (PCR) Coronavirus 229E (PCR) Coronavirus NL63 (PCR) Human Metapneumovir PCR Influenza A (RT-PCR) Influenza Type A (PCR) Influenza B (RT-PCR) Influenza Type B (PCR) M. pneumoniae (PCR) Parainfluenza 1 (PCR) Parainfluenza 2 (PCR) Parainfluenza 3 (PCR) Parainfluenza 4 (PCR) RSV (PCR) RSV RNA Qual (PCR) Entero/Rhino (PCR) SARS-CoV-2 RNA (RT-PCR) Microbiology Microbiology Results: Microbiology 09/10/24 Unknown Urine Culture - Preliminary Urine clean catch - Clean Catch Midstream No growth to date. Assessment and Plan (1) Multifocal pneumonia: Status: Acute (2) Acute hypoxemic respiratory failure: Status: Acute (3) Takotsubo cardiomyopathy: Status: Acute Assessment and Plan: 63 yo female with PMH of heavy smoking though did quit 10 to 12 years ago, COPD not on home O2 who traveled to [place] (08/29 to 09/03) with her boyfriend who is also ill and was in our ER with reported negative work up will be admitted for further management of acute hypoxemic respiratory failure in the setting of CHF exacerbation secondary to takotsubo cardiomyopathy as well as multifocal pneumonia with sepsis Acute hypoxemic respiratory failure Multifocal in the setting of CHF exacerbation, URI, and multifocal pneumonia Viral respiratory panel -positive for human metapneumovirus. plan: continue iv lasix ,iv antibiotics ,Wean from high-flow oxygen as tolerated Acute CHF exacerbation/takotsubo cardiomyopathy Likely induced by viral or bacterial illness leading to stress induced myopathy Bedside echocardiogram showed at least moderate systolic LV dysfunction per Cardiology CTA of the chest shows pulmonary edema IV Lasix 20 mg daily Cardiac diet Strict I&O Cardiology consult Follow renal function electrolyte levels NSTEMI Troponins x2 flat but >3000 EKG with T-wave inversions in the precordial leads but no ELVIN Heparin drip per protocol recommended by Cardiology Continue baby aspirin No beta-blue or calcium channel blue per Cardiology Monitor on telemetry Cardiology consult-asa ,plavix ,cardiology followup Multifocal pneumonia with sepsis Leukocytosis improving, tachypnea-impoved. Tachycardia secondary to cardiomyopathy. acute Lactic acidosis due to hypoperfusion from hypoxia, no severe sepsis/shock IV ceftriaxone azithromycin (initiated 09/10) Likely secondary to viral URI Strep pneumo antigen, Legionella antigen COPD exacerbation In setting of above IV methylprednisolone 40 mg b.i.d. DuoNebs q.4h while awake Guaifenesin p.r.n. DVT prophylaxis-heparin per protocol Quality Stroke Does the patient have a stroke diagnosis?: No VTE Prior VTE?: No VTE Risk Level:: Medical - moderate - high VTE Device Contraindication: Treatment Not Indicated VTE Drug Contraindication: N/A - Med Ordered
[2024-09-11] MEDS: cefTRIAXone sodium 1 GM VIAL IVPUSH (14:26)
--- NOTE | 2024-09-11 14:53 | P.PNCA_ITS ---
Subjective Subjective Date of Service: 09/11/24 Interval history: Seen examined at bedside. On high-flow oxygen. Physical Exam Vital Signs: Last Vital Signs Temp 97.0 F 09/11/24 11:12 Pulse 94 09/11/24 11:44 Resp 20 09/11/24 11:44 BP 120/76 09/11/24 11:12 Pulse Ox 92 09/11/24 11:12 O2 Del Method High Flow Nasal Cannula 09/11/24 11:12 O2 Flow Rate 50 09/11/24 11:12 FiO2 60 09/11/24 11:12 Oxygen Flow Rate 3 09/10/24 13:57 BMI result Body Mass Index 31.7 GENERAL APPEARANCE: On high-flow oxygen. Appears comfortable. NECK: no carotid bruit, mild jugular venous distention. SKIN: no suspicious lesions, warm and dry. HEART: no murmurs, regular rate and rhythm. LUNGS: clear to auscultation anteriorly. ABDOMEN: soft, nontender. EXTREMITIES: no edema. PERIPHERAL PULSES: equal. NEUROLOGIC: No gross deficits, AAO X 3 Objective Labs and Meds 09/11/24 06:58 09/11/24 06:58 Lab results: Laboratory Results - last 24 hr 09/10/24 09/10/24 09/10/24 14:19 14:20 15:04 WBC RBC Hgb Hct MCV MCH MCHC RDW Plt Count MPV Immature Gran % (Auto) 0.6 H Neut % (Auto) 87.5 H Lymph % (Auto) 6.3 L [place] % (Auto) 5.2 Eos % (Auto) 0.2 Baso % (Auto) 0.2 Lymph # (Auto) 1.5 [place] # (Auto) 1.2 Eos # (Auto) 0.0 Baso # (Auto) 0.1 Abs Immat Gran (auto) 0.13 H Absolute Neuts (auto) 20.6 H Absolute Nucleated RBC 0.000 Nucleated RBC % (auto) 0.0 Smear Tech's Comments VERIFIED Hold Purple Top PT INR aPTT Heparin Protocol Sodium 135 Potassium 4.0 Chloride 99 Carbon Dioxide 22 Anion Gap 18 BUN 14 Creatinine 0.72 Estim Creat Clear Calc 81.6 Estimated GFR > 60 Random Glucose 162 H Lactic Acid 4.2 H* Lactic Acid F/U @ 2Hr Lactic Acid F/U @ 4Hr Calcium 9.6 Magnesium 1.8 Total Bilirubin 0.6 Direct Bilirubin 0.2 AST 54 H ALT 33 H Alkaline Phosphatase 110 Troponin I High Sens 3385.0 H* C-Reactive Protein 2.28 H B-Natriuretic Peptide 805 H Total Protein 8.3 H Albumin 4.5 Lipase 11 Procalcitonin 0.04 Urine Color Urine Appearance Urine pH Ur Specific [place] Urine Protein Urine Glucose (UA) Urine Ketones Urine Blood Urine Nitrite Ur Leukocyte Esterase Urine RBC Urine WBC Ur Squamous Epith Cells Urine Bacteria Hyaline Casts Respiratory Panel [place] Adenovirus (Rapid PCR) B.pert (TEM-PCR) B.parapertussis DNA PCR C. pneumoniae DNA (PCR) Coronavirus OC43 (PCR) Coronavirus HKU1 (PCR) Coronavirus 229E (PCR) Coronavirus NL63 (PCR) Human Metapneumovir PCR Influenza A (RT-PCR) Influenza Type A (PCR) NEGATIVE Influenza B (RT-PCR) Influenza Type B (PCR) NEGATIVE M. pneumoniae (PCR) Parainfluenza 1 (PCR) Parainfluenza 2 (PCR) Parainfluenza 3 (PCR) Parainfluenza 4 (PCR) RSV (PCR) RSV RNA Qual (PCR) NEGATIVE Entero/Rhino (PCR) SARS-CoV-2 RNA (RT-PCR) NEGATIVE 09/10/24 09/10/24 09/10/24 15:32 16:19 16:52 WBC RBC Hgb Hct MCV MCH MCHC RDW Plt Count MPV Immature Gran % (Auto) Neut % (Auto) Lymph % (Auto) [place] % (Auto) Eos % (Auto) Baso % (Auto) Lymph # (Auto) [place] # (Auto) Eos # (Auto) Baso # (Auto) Abs Immat Gran (auto) Absolute Neuts (auto) Absolute Nucleated RBC Nucleated RBC % (auto) Smear Tech's Comments Hold Purple Top PT 13.8 H INR 1.2 H aPTT Heparin Protocol 33.9 L Sodium Potassium Chloride Carbon Dioxide Anion Gap BUN Creatinine Estim Creat Clear Calc Estimated GFR Random Glucose Lactic Acid Lactic Acid F/U @ 2Hr Lactic Acid F/U @ 4Hr Calcium Magnesium Total Bilirubin Direct Bilirubin AST ALT Alkaline Phosphatase Troponin I High Sens C-Reactive Protein B-Natriuretic Peptide Total Protein Albumin Lipase Procalcitonin Urine Color Yellow Urine Appearance Clear Urine pH 5.5 Ur Specific [place] 1.015 Urine Protein Negative Urine Glucose (UA) Negative Urine Ketones 40 Urine Blood Negative Urine Nitrite Negative Ur Leukocyte Esterase Moderate (2+) H Urine RBC 0-2 Urine WBC 11-20 H Ur Squamous Epith Cells 6-10 Urine Bacteria Trace Hyaline Casts 0-2 Respiratory Panel [place] See Note Adenovirus (Rapid PCR) Not Detected B.pert (TEM-PCR) Not Detected B.parapertussis DNA PCR Not Detected C. pneumoniae DNA (PCR) Not Detected Coronavirus OC43 (PCR) Not Detected Coronavirus HKU1 (PCR) Not Detected Coronavirus 229E (PCR) Not Detected Coronavirus NL63 (PCR) Not Detected Human Metapneumovir PCR Detected A Influenza A (RT-PCR) Not Detected Influenza Type A (PCR) Influenza B (RT-PCR) Not Detected Influenza Type B (PCR) M. pneumoniae (PCR) Not Detected Parainfluenza 1 (PCR) Not Detected Parainfluenza 2 (PCR) Not Detected Parainfluenza 3 (PCR) Not Detected Parainfluenza 4 (PCR) Not Detected RSV (PCR) Not Detected RSV RNA Qual (PCR) Entero/Rhino (PCR) Not Detected SARS-CoV-2 RNA (RT-PCR) Not Detected 09/10/24 09/10/24 09/10/24 17:12 19:34 21:56 WBC RBC Hgb Hct MCV MCH MCHC RDW Plt Count MPV Immature Gran % (Auto) Neut % (Auto) Lymph % (Auto) [place] % (Auto) Eos % (Auto) Baso % (Auto) Lymph # (Auto) [place] # (Auto) Eos # (Auto) Baso # (Auto) Abs Immat Gran (auto) Absolute Neuts (auto) Absolute Nucleated RBC Nucleated RBC % (auto) Smear Tech's Comments Hold Purple Top SEE NOTE PT INR aPTT Heparin Protocol 69.7 D Sodium Potassium Chloride Carbon Dioxide Anion Gap BUN Creatinine Estim Creat Clear Calc Estimated GFR Random Glucose Lactic Acid Lactic Acid F/U @ 2Hr 2.8 H* Lactic Acid F/U @ 4Hr 3.0 H* Calcium Magnesium Total Bilirubin Direct Bilirubin AST ALT Alkaline Phosphatase Troponin I High Sens 3195.0 H* C-Reactive Protein B-Natriuretic Peptide Total Protein Albumin Lipase Procalcitonin Urine Color Urine Appearance Urine pH Ur Specific [place] Urine Protein Urine Glucose (UA) Urine Ketones Urine Blood Urine Nitrite Ur Leukocyte Esterase Urine RBC Urine WBC Ur Squamous Epith Cells Urine Bacteria Hyaline Casts Respiratory Panel [place] Adenovirus (Rapid PCR) B.pert (TEM-PCR) B.parapertussis DNA PCR C. pneumoniae DNA (PCR) Coronavirus OC43 (PCR) Coronavirus HKU1 (PCR) Coronavirus 229E (PCR) Coronavirus NL63 (PCR) Human Metapneumovir PCR Influenza A (RT-PCR) Influenza Type A (PCR) Influenza B (RT-PCR) Influenza Type B (PCR) M. pneumoniae (PCR) Parainfluenza 1 (PCR) Parainfluenza 2 (PCR) Parainfluenza 3 (PCR) Parainfluenza 4 (PCR) RSV (PCR) RSV RNA Qual (PCR) Entero/Rhino (PCR) SARS-CoV-2 RNA (RT-PCR) 09/11/24 09/11/24 04:31 06:58 WBC 17.1 H RBC 5.21 Hgb 15.3 Hct 45.1 MCV 86.6 MCH 29.4 MCHC 33.9 RDW 14.0 Plt Count 281 MPV 11.6 Immature Gran % (Auto) 0.9 H Neut % (Auto) 84.0 H Lymph % (Auto) 9.2 L [place] % (Auto) 5.6 Eos % (Auto) 0.1 Baso % (Auto) 0.2 Lymph # (Auto) 1.6 [place] # (Auto) 1.0 Eos # (Auto) 0.0 Baso # (Auto) 0.0 Abs Immat Gran (auto) 0.16 H Absolute Neuts (auto) 14.3 H Absolute Nucleated RBC 0.000 Nucleated RBC % (auto) 0.0 Smear Tech's Comments Hold Purple Top PT 16.0 H INR 1.4 H aPTT Heparin Protocol 53.1 D Sodium 136 Potassium 3.8 Chloride 102 Carbon Dioxide 24 Anion Gap 14 BUN 15 Creatinine 0.70 Estim Creat Clear Calc 83.9 Estimated GFR > 60 Random Glucose 136 H Lactic Acid Lactic Acid F/U @ 2Hr Lactic Acid F/U @ 4Hr Calcium 9.1 Magnesium Total Bilirubin Direct Bilirubin AST ALT Alkaline Phosphatase Troponin I High Sens C-Reactive Protein B-Natriuretic Peptide Total Protein Albumin Lipase Procalcitonin Urine Color Urine Appearance Urine pH Ur Specific [place] Urine Protein Urine Glucose (UA) Urine Ketones Urine Blood Urine Nitrite Ur Leukocyte Esterase Urine RBC Urine WBC Ur Squamous Epith Cells Urine Bacteria Hyaline Casts Respiratory Panel [place] Adenovirus (Rapid PCR) B.pert (TEM-PCR) B.parapertussis DNA PCR C. pneumoniae DNA (PCR) Coronavirus OC43 (PCR) Coronavirus HKU1 (PCR) Coronavirus 229E (PCR) Coronavirus NL63 (PCR) Human Metapneumovir PCR Influenza A (RT-PCR) Influenza Type A (PCR) Influenza B (RT-PCR) Influenza Type B (PCR) M. pneumoniae (PCR) Parainfluenza 1 (PCR) Parainfluenza 2 (PCR) Parainfluenza 3 (PCR) Parainfluenza 4 (PCR) RSV (PCR) RSV RNA Qual (PCR) Entero/Rhino (PCR) SARS-CoV-2 RNA (RT-PCR) Progress Note: A&P Assessment and plan (1) NSTEMI (non-ST elevated myocardial infarction): Status: Acute (2) Cardiomyopathy: Status: Acute Plan [age] year female who is here for respiratory distress, elevated troponin and subtle ECG changes. Echocardiography has shown changes consistent with takotsubo cardiomyopathy. She can be changed to Lovenox therapeutic dose which will be easier to manage as she is in no shape to undergo diagnostic cardiac catheterization right now. This should be continued for the duration of hospitalization unless she has any bleeding. Tachycardia is improving. Still on high-flow oxygen. I think she can be gently diuresed with IV Lasix 20 mg daily. Avoid any beta-blockers or Cardizem because EF is low. We will follow along with you. Thank you for allowing me to participate in the care of your patient. Please feel free to contact me if you have any questions. Time Spent With Patient Time: Total time managing care of this patient today ____ minutes. Progress Note: Quality Stroke Does the patient have a stroke diagnosis?: No Procedures Date of Service Date of Service: 09/11/24
[2024-09-11] MEDS: Omeprazole 20 MG CAPSULE.DR PO (16:24)
[2024-09-11] MEDS: Heparin Sodium,Porcine/1/2NS 25,000 UNIT/250 ML IV.SOLN 10 UNIT IVCONT (16:24)
[2024-09-11] MEDS: Azithromycin 500 MG in 0.9 % Sodium Chloride 250 ML 125 MG IV (18:46)
[2024-09-11] MEDS: Melatonin 3 MG TABLET 6 MG PO (20:31)
[2024-09-12] VITALS (13 sets, daily range): BP systolic 102–127; BP diastolic 63–83; PULSE 89–122; RESP 16–18; TEMP 36.1–36.9; O2SAT 90–98
[2024-09-12] MEDS: methylPREDNISolone Sod Succ 40 MG/ML VIAL IVPUSH ×2 (05:14→18:13)
[2024-09-12] MEDS: Omeprazole 20 MG CAPSULE.DR PO ×2 (05:14→15:24)
[2024-09-12 06:28] LABS: PTT Heparin Drip 43.7 SEC (53-77.9)
[2024-09-12] MEDS: Heparin Sodium,Porcine 5,000 UNIT/ML VIAL 3400 UNIT IVPUSH (06:35)
[2024-09-12] MEDS: Albuterol/Iprat 2.5/0.5MG 3 ML AMPUL.NEB INHALE ×3 (07:28→15:20)
[2024-09-12] MEDS: Benzonatate 100 MG CAPSULE PO ×3 (10:48→20:52)
[2024-09-12] MEDS: Furosemide 20 MG/2 ML VIAL IVPUSH (10:48)
[2024-09-12] MEDS: 0.9 % Sodium Chloride Flush 3 ML SYRINGE IVFLUSH ×2 (10:48→15:24)
[2024-09-12] MEDS: Aspirin 81 MG TAB.CHEW PO (10:48)
--- NOTE | 2024-09-12 11:17 | PM.PNCARD ---
Subjective Subjective Date of Service: 09/12/24 Interval history: Seen examined at bedside. She is positive for human metapneumovirus. Still continues to be on high-flow oxygen. Physical Exam Vital Signs: Last Vital Signs Temp 97.4 F 09/12/24 07:27 Pulse 98 09/12/24 11:14 Resp 18 09/12/24 11:14 BP 114/65 09/12/24 10:48 Pulse Ox 92 09/12/24 07:27 O2 Del Method High Flow Nasal Cannula 09/12/24 07:27 O2 Flow Rate 50 09/12/24 07:27 FiO2 40 09/12/24 07:27 Oxygen Flow Rate 3 09/10/24 13:57 BMI result Body Mass Index 31.7 GENERAL APPEARANCE: On high-flow oxygen. Appears comfortable. NECK: no carotid bruit, mild jugular venous distention. SKIN: no suspicious lesions, warm and dry. HEART: no murmurs, regular rate and rhythm. LUNGS: clear to auscultation anteriorly. ABDOMEN: soft, nontender. EXTREMITIES: no edema. PERIPHERAL PULSES: equal. NEUROLOGIC: No gross deficits, AAO X 3 Objective Labs and Meds 09/11/24 06:58 09/11/24 06:58 Lab results: Laboratory Results - last 24 hr 09/10/24 09/12/24 16:19 06:03 Hold Purple Top SEE NOTE aPTT Heparin Protocol 43.7 L Respiratory Panel Muir See Note Adenovirus (Rapid PCR) Not Detected B.pert (TEM-PCR) Not Detected B.parapertussis DNA PCR Not Detected C. pneumoniae DNA (PCR) Not Detected Coronavirus OC43 (PCR) Not Detected Coronavirus HKU1 (PCR) Not Detected Coronavirus 229E (PCR) Not Detected Coronavirus NL63 (PCR) Not Detected Human Metapneumovir PCR Detected A Influenza A (RT-PCR) Not Detected Influenza B (RT-PCR) Not Detected M. pneumoniae (PCR) Not Detected Parainfluenza 1 (PCR) Not Detected Parainfluenza 2 (PCR) Not Detected Parainfluenza 3 (PCR) Not Detected Parainfluenza 4 (PCR) Not Detected RSV (PCR) Not Detected Entero/Rhino (PCR) Not Detected SARS-CoV-2 RNA (RT-PCR) Not Detected Imaging Radiologist's impression: Impressions Chest X-Ray 09/12/24 07:22 IMPRESSION: Chronic interstitial lung disease with improved/less interstitial lung edema. Superimposed acute pneumonitis versus acute small airway disease should be considered. Electronically signed by: Sergo Bishop MD 09/12/2024 08:06 AM EDT Progress Note: A&P Assessment and plan (1) NSTEMI (non-ST elevated myocardial infarction): Status: Acute (2) Cardiomyopathy: Status: Acute Plan [age] year female who is here for respiratory distress, elevated troponin and subtle ECG changes. Echocardiography has shown changes consistent with takotsubo cardiomyopathy. She can be changed to Lovenox therapeutic dose which will be easier to manage as she is in no shape to undergo diagnostic cardiac catheterization right now. This should be continued for the duration of hospitalization unless she has any bleeding. Tachycardia is improving. Still on high-flow oxygen. Continue gentle diuresis. Supportive care with antibiotics etc.. Avoid any beta-blockers or Cardizem because EF is low. Once she improves from the respiratory status and oxygen demand goes down then we can discuss transferred to [facility] for diagnostic angiography. We will follow along with you. Thank you for allowing me to participate in the care of your patient. Please feel free to contact me if you have any questions. Time Spent With Patient Time: Total time managing care of this patient today ____ minutes. Progress Note: Quality Stroke Does the patient have a stroke diagnosis?: No Procedures Date of Service Date of Service: 09/12/24
[2024-09-12 13:04] LABS: PTT Heparin Drip 62.9 SEC (53-77.9)
[2024-09-12] MEDS: cefTRIAXone sodium 1 GM VIAL IVPUSH (15:24)
[2024-09-12] MEDS: Heparin Sodium,Porcine/1/2NS 25,000 UNIT/250 ML IV.SOLN 11.68 UNIT IVCONT (15:25)
--- NOTE | 2024-09-12 17:35 | P.PNIM_ITS ---
Subjective Subjective Date of Service: 09/12/24 Interval History: pneumonia ,elevated trops Review of Systems sob seems improving,denies any chest pain anxious has 1 episode of sputum ,mild pinkish blood streaks mild tachy: 100-110 range Physical Exam 2 Vital Signs: Vital Signs: Last Vital Signs Temp 98.0 F 09/12/24 16:00 Pulse 122 H 09/12/24 16:00 Resp 18 09/12/24 16:00 BP 123/67 09/12/24 16:00 Pulse Ox 90 L 09/12/24 16:00 O2 Del Method High Flow Nasal C annula 09/12/24 16:00 O2 Flow Rate 40 09/12/24 16:00 FiO2 50 09/12/24 16:00 Oxygen Flow Rate 3 09/10/24 13:57 BMI result Body Mass Index 31.7 Appearance: Alert.? Oriented X3.? cvs: rrr, [id number] . res: air entry improving,few scattered rales. abd: no rebound or guarding ,nt, bs present. ext pulses present , no cyanosis. neuro: nonfocal. Objective Data Active Medications Acetaminophen (Acetaminophen 325 Mg Tablet) 650 mg PO Q6H PRN PRN Reason: Pain, Mild 1-3,fever,headache Last Admin: 09/11/24 20:31 Dose: 650 mg Documented By: VAIBHAV Albuterol/Ipratropium (Albuterol/Iprat 2.5/0.5mg 3 Ml Ampul.Neb) 3 ml INHALE Q4H PRN PRN Reason: Wheezing Last Admin: 09/11/24 05:55 Dose: 3 ml Documented By: VICKEY Aspirin (Aspirin 81 Mg Tab.Chew) 81 mg PO DAILY [facility] Last Admin: 09/12/24 10:48 Dose: 81 mg Documented By: BIBIANA Benzonatate (Benzonatate 100 Mg Capsule) 100 mg PO TID [facility] Last Admin: 09/12/24 15:24 Dose: 100 mg Documented By: BIBIANA Calcium Carbonate (Calcium Carbonate 750 Mg Tab.Chew) 750 mg PO Q4H PRN PRN Reason: Heartburn Ceftriaxone Sodium (Ceftriaxone Sodium 1 Gm Vial) 1 gm IVPUSH Q24H [facility] Last Admin: 09/12/24 15:24 Dose: 1 gm Documented By: BIBIANA Furosemide (Furosemide 20 Mg/2 Ml Vial) 20 mg IVPUSH DAILY [facility]; Protocol Last Admin: 09/12/24 10:48 Dose: 20 mg Documented By: BIBIANA Guaifenesin (Guaifenesin 200 Mg/10 Ml 10 Ml Liquid) 10 ml PO Q4H PRN PRN Reason: Cough Last Admin: 09/11/24 14:29 Dose: 10 ml Documented By: RICKIE Guaifenesin (Guaifenesin 200 Mg/10 Ml 10 Ml Liquid) 10 ml PO Q4H PRN PRN Reason: Cough Azithromycin 500 mg/ Sodium (Chloride) 250 mls @ 125 mls/hr IV Q24H [facility] Last Infusion: 09/11/24 20:46 Dose: Infused Documented By: VAIBHAV Levalbuterol HCl (Levalbuterol Hcl 1.25 Mg/3 Ml Vial.Neb) 1.25 mg INHALE RTID [facility] Magnesium Hydroxide (Milk Of Magnesia 30 Ml Oral.Susp) 30 ml PO DAILY PRN PRN Reason: Constipation Melatonin (Melatonin 3 Mg Tablet) 6 mg PO BEDTIME PRN PRN Reason: Insomnia Last Admin: 09/11/24 20:31 Dose: 6 mg Documented By: VAIBHAV Methylprednisolone Sodium Succinate (Methylprednisolone Sod Succ 40 Mg/Ml Vial) 40 mg IVPUSH Q12H [facility] Last Admin: 09/12/24 05:14 Dose: 40 mg Documented By: VAIBHAV Omeprazole (Omeprazole 20 Mg Capsule.Dr) 20 mg PO BID@0630,1630 [facility] Last Admin: 09/12/24 15:24 Dose: 20 mg Documented By: BIBIANA Sodium Chloride (0.9 % Sodium Chloride Flush 3 Ml Syringe) 3 ml IVFLUSH QSHIFT [facility] Last Admin: 09/12/24 15:24 Dose: 3 ml Documented By: BIBIANA Labs 09/11/24 06:58 09/11/24 06:58 Labs: Laboratory Results - last 24 hr 09/12/24 09/12/24 06:03 12:32 Hold Purple Top SEE NOTE aPTT Heparin Protocol 43.7 L 62.9 D Microbiology Microbiology Results: Microbiology 09/10/24 14:21 Blood Culture - Preliminary Blood - Venous No growth after 48 hours. 09/10/24 14:21 Blood Culture - Preliminary Blood - Venous No growth after 48 hours. 09/10/24 Unknown Urine Culture - Final Urine clean catch - Clean Catch Midstream 09/12/24 05:23 Gram Stain - Final Sputum - Expectorated Sputum Culture - Final Assessment and Plan (1) Multifocal pneumonia: Status: Acute (2) Acute hypoxemic respiratory failure: Status: Acute (3) Takotsubo cardiomyopathy: Status: Acute Assessment and Plan: 63 yo female with PMH of heavy smoking though did quit 10 to 12 years ago, COPD not on home O2 who traveled to [place] (08/29 to 09/03) with her boyfriend who is also ill and was in our ER with reported negative work up will be admitted for further management of acute hypoxemic respiratory failure in the setting of CHF exacerbation secondary to takotsubo cardiomyopathy as well as multifocal pneumonia with sepsis Acute hypoxemic respiratory failure Multifocal in the setting of CHF exacerbation, URI, and multifocal pneumonia Viral respiratory panel -positive for human metapneumovirus. i/o negative for 1 liter plan: continue iv lasix ,iv antibiotics ,Wean from high-flow oxygen as tolerated Acute CHF exacerbation/takotsubo cardiomyopathy Likely induced by viral or bacterial illness leading to stress induced myopathy Bedside echocardiogram showed -The left ventricular systolic function is moderate to severely decreased. The visually estimated ejection fraction is between 25-30%. CTA of the chest shows pulmonary edema,negative for pulm embolism IV Lasix 20 mg daily Cardiac diet Strict I&O Cardiology consult noted -added asa, completed heaprin [id number] Follow renal function electrolyte levels NSTEMI Troponins x2 flat but >3000 EKG with T-wave inversions in the precordial leads but no ELVIN Heparin drip per protocol recommended by Cardiology Continue baby aspirin No beta-blue or calcium channel blue per Cardiology Monitor on telemetry Cardiology consult-asa ,heparin drip-completed heaprin [id number] -switched to subQ Lovenox therapeutic in anticipation of cardiac catheterization once patient improves. Continue subQ Lovenox unless there is any sign of further bleeding . Multifocal pneumonia with sepsis Leukocytosis improving, tachypnea-impoved. Tachycardia secondary to cardiomyopathy. acute Lactic acidosis due to hypoperfusion from hypoxia, no severe sepsis/shock IV ceftriaxone azithromycin (initiated 09/10) Likely secondary to viral URI Strep pneumo antigen, Legionella antigen COPD exacerbation In setting of above IV methylprednisolone 40 mg b.i.d. DuoNebs q.4h while awake Guaifenesin p.r.n. DVT prophylaxis-heparin per protocol Quality Stroke Does the patient have a stroke diagnosis?: No VTE Prior VTE?: No VTE Risk Level:: Medical - moderate - high VTE Device Contraindication: Treatment Not Indicated VTE Drug Contraindication: N/A - Med Ordered
[2024-09-12] MEDS: Azithromycin 500 MG in 0.9 % Sodium Chloride 250 ML 125 MG IV (18:13)
[2024-09-12 19:27] LABS: PTT Heparin Drip 35.1 SEC (53-77.9)
[2024-09-12] MEDS: Enoxaparin Sodium 100 MG/ML SYRINGE 90 MG SUBCUT (19:43)
[2024-09-12] MEDS: levalbuterol HCL 1.25 MG/3 ML VIAL.NEB INHALE (20:26)
[2024-09-12] MEDS: Melatonin 3 MG TABLET 6 MG PO (23:00)
[2024-09-12] MEDS: Acetaminophen 325 MG TABLET 650 MG PO (23:00)
[2024-09-12 23:44] LABS: Strep Pneumo Ag urine Not Detected (Not Detected)
[2024-09-13] VITALS (18 sets, daily range): BP systolic 120–142; BP diastolic 65–87; PULSE 10–176; RESP 16–20; TEMP 35.8–36.7; O2SAT 90–97
--- NOTE | 2024-09-13 | ECG_ITS ---
Test Reason : RHYTHM CHECK Blood Pressure : */* mmHG Vent. Rate : 99 BPM Atrial Rate : 99 BPM P-R Int : 138 ms QRS Dur : 84 ms QT Int : 354 ms P-R-T Axes : 52 39 137 degrees QTcB Int : 454 ms Normal sinus rhythm Possible Anterior infarct (cited on or before 10-Sep-2024) Abnormal ECG When compared with ECG of 13-Sep-2024 02:05, Sinus rhythm has replaced Atrial fibrillation Vent. rate has decreased by 69 bpm Questionable change in initial forces of Anterior leads Nonspecific T wave abnormality, worse in Lateral leads Referred By: Monse Hoskins Electronically Signed By: Jim Ho
--- NOTE | 2024-09-13 01:56 | ECG_ITS ---
Test Reason : afib rvr? Blood Pressure : */* mmHG Vent. Rate : 168 BPM Atrial Rate : * BPM P-R Int : * ms QRS Dur : 86 ms QT Int : 290 ms P-R-T Axes : * 74 61 degrees QTcB Int : 484 ms Atrial fibrillation with rapid ventricular response Septal infarct (cited on or before 10-Sep-2024) Abnormal ECG When compared with ECG of 10-Sep-2024 14:09, Atrial fibrillation has replaced Sinus rhythm Questionable change in initial forces of Anterior leads T wave inversion no longer evident in Anterior leads Referred By: Trinity Rendon Electronically Signed By: Jim Ho
[2024-09-13] MEDS: Digoxin 0.5 MG/2 ML AMPUL 0.25 MG IVPUSH ×2 (02:15→02:49)
--- NOTE | 2024-09-13 03:29 | PM.EVENT ---
Event Note Date of Service: 09/13/24 Event Note: Nurse reported tachycardia. EKG with AFib with RVR and heart rate in the 160s. Noted cardiology's note to avoid beta-blue or Cardizem because of low EF. Loaded with digoxin IV without control of heart rate. Initiating IV amiodarone. Appreciate cardiology Time Spent With Patient Time: Total time managing care of this patient today ____ minutes.
[2024-09-13] MEDS: Amiodarone/Dextrose 150 MG/100 ML PLAST..BAG 600 MG IV (03:57)
[2024-09-13] MEDS: Amiodarone HCL 900 MG in 0.9 % Sodium Chloride 500 ML 34.53 MG IVCONT (04:18)
[2024-09-13] MEDS: Omeprazole 20 MG CAPSULE.DR PO ×2 (05:34→17:44)
[2024-09-13] MEDS: methylPREDNISolone Sod Succ 40 MG/ML VIAL IVPUSH ×2 (05:34→17:44)
[2024-09-13] MEDS: Enoxaparin Sodium 100 MG/ML SYRINGE 90 MG SUBCUT ×2 (05:34→17:44)
--- NOTE | 2024-09-13 07:07 | PC.NURSE ---
At 0153 pt HR was 140-170s. pt diaphoretic, MD notified, Vital signs checked. EKG obtained, pt in A-FIB RVR. MD notified, digoxin ivpush given x2 with minimal effect. pt given amiodarone bolus and started on continuos infusion per MD order. @0600 pt converted to sinus rhythm in the 80-90s. MD Rendon notified. Per MD continue iv amiodarone infusion.
[2024-09-13] MEDS: 0.9 % Sodium Chloride Flush 3 ML SYRINGE IVFLUSH ×3 (07:48→20:19)
[2024-09-13] MEDS: Furosemide 20 MG/2 ML VIAL IVPUSH (07:49)
[2024-09-13] MEDS: Benzonatate 100 MG CAPSULE PO ×3 (07:49→20:18)
[2024-09-13] MEDS: Aspirin 81 MG TAB.CHEW PO (07:49)
[2024-09-13] MEDS: levalbuterol HCL 1.25 MG/3 ML VIAL.NEB INHALE ×3 (07:56→19:52)
--- NOTE | 2024-09-13 08:38 | P.PNIM_ITS ---
Subjective Subjective Date of Service: 09/13/24 Interval History: sob Review of Systems sob seems somewhat improving As cough dry No fever Review of Systems: Yes all other systems are reviewed and are negative Physical Exam 2 Vital Signs: Vital Signs: Last Vital Signs Temp 96.5 F L 09/13/24 07:22 Pulse 96 09/13/24 07:56 Resp 20 09/13/24 07:56 BP 120/75 09/13/24 07:22 Pulse Ox 97 09/13/24 07:22 O2 Del Method High Flow Nasal C annula 09/13/24 07:22 O2 Flow Rate 40 09/13/24 07:22 FiO2 35 09/13/24 07:22 Oxygen Flow Rate 3 09/10/24 13:57 BMI result Body Mass Index 31.7 Appearance: Alert.? Oriented X3.? cvs: rrr, [id number] . res: air entry improving,few scattered rales. abd: no rebound or guarding ,nt, bs present. ext pulses present , no cyanosis. neuro: nonfocal. Objective Data Active Medications Acetaminophen (Acetaminophen 325 Mg Tablet) 650 mg PO Q6H PRN PRN Reason: Pain, Mild 1-3,fever,headache Last Admin: 09/12/24 23:00 Dose: 650 mg Documented By: KATELYN Albuterol/Ipratropium (Albuterol/Iprat 2.5/0.5mg 3 Ml Ampul.Neb) 3 ml INHALE Q4H PRN PRN Reason: Wheezing Last Admin: 09/11/24 05:55 Dose: 3 ml Documented By: VICKEY Aspirin (Aspirin 81 Mg Tab.Chew) 81 mg PO DAILY [facility] Last Admin: 09/13/24 07:49 Dose: 81 mg Documented By: SANDER Benzonatate (Benzonatate 100 Mg Capsule) 100 mg PO TID [facility] Last Admin: 09/13/24 07:49 Dose: 100 mg Documented By: SANDER Calcium Carbonate (Calcium Carbonate 750 Mg Tab.Chew) 750 mg PO Q4H PRN PRN Reason: Heartburn Ceftriaxone Sodium (Ceftriaxone Sodium 1 Gm Vial) 1 gm IVPUSH Q24H [facility] Last Admin: 09/12/24 15:24 Dose: 1 gm Documented By: BIBIANA Enoxaparin Sodium (Enoxaparin Sodium 100 Mg/Ml Syringe) 90 mg SUBCUT Q12H [facility] Last Admin: 09/13/24 05:34 Dose: 90 mg Documented By: KATELYN Furosemide (Furosemide 20 Mg/2 Ml Vial) 20 mg IVPUSH DAILY [facility]; Protocol Last Admin: 09/13/24 07:49 Dose: 20 mg Documented By: SANDER Guaifenesin (Guaifenesin 200 Mg/10 Ml 10 Ml Liquid) 10 ml PO Q4H PRN PRN Reason: Cough Last Admin: 09/11/24 14:29 Dose: 10 ml Documented By: RICKIE Guaifenesin (Guaifenesin 200 Mg/10 Ml 10 Ml Liquid) 10 ml PO Q4H PRN PRN Reason: Cough Azithromycin 500 mg/ Sodium (Chloride) 250 mls @ 125 mls/hr IV Q24H [facility] Last Infusion: 09/12/24 20:13 Dose: Infused Documented By: VAIBHAV Amiodarone HCl 900 mg/ Sodium (Chloride) 518 mls @ 34.533 mls/hr IVCONT .Q15H1M [facility]; Protocol Last Admin: 09/13/24 04:18 Dose: 1 mg/min, 34.53 mls/hr Documented By: KATELYN Levalbuterol HCl (Levalbuterol Hcl 1.25 Mg/3 Ml Vial.Abdirashid) 1.25 mg INHALE RTID [facility] Last Admin: 09/13/24 07:56 Dose: 1.25 mg Documented By: AUGUSTO Magnesium Hydroxide (Milk Of Magnesia 30 Ml Oral.Susp) 30 ml PO DAILY PRN PRN Reason: Constipation Melatonin (Melatonin 3 Mg Tablet) 6 mg PO BEDTIME PRN PRN Reason: Insomnia Last Admin: 09/12/24 23:00 Dose: 6 mg Documented By: KATELYN Methylprednisolone Sodium Succinate (Methylprednisolone Sod Succ 40 Mg/Ml Vial) 40 mg IVPUSH Q12H [facility] Last Admin: 09/13/24 05:34 Dose: 40 mg Documented By: KATELYN Omeprazole (Omeprazole 20 Mg Capsule.) 20 mg PO BID@0630,1630 [facility] Last Admin: 09/13/24 05:34 Dose: 20 mg Documented By: KATELYN Sodium Chloride (0.9 % Sodium Chloride Flush 3 Ml Syringe) 3 ml IVFLUSH QSHIFT [facility] Last Admin: 09/13/24 07:48 Dose: 3 ml Documented By: SANDER Labs 09/11/24 06:58 09/11/24 06:58 Labs: Laboratory Results - last 24 hr 09/10/24 09/12/24 09/12/24 16:52 12:32 19:11 aPTT Heparin Protocol 62.9 D 35.1 L D Ur Strep pneumoniae Ag Not Detected Microbiology Microbiology Results: Microbiology 09/10/24 14:21 Blood Culture - Preliminary Blood - Venous No growth after 48 hours. 09/10/24 14:21 Blood Culture - Preliminary Blood - Venous No growth after 48 hours. 09/10/24 Unknown Urine Culture - Final Urine clean catch - Clean Catch Midstream 09/12/24 05:23 Gram Stain - Final Sputum - Expectorated Sputum Culture - Final Assessment and Plan (1) Multifocal pneumonia: Status: Acute (2) Acute hypoxemic respiratory failure: Status: Acute (3) Takotsubo cardiomyopathy: Status: Acute Assessment and Plan: 63 yo female with PMH of heavy smoking though did quit 10 to 12 years ago, COPD not on home O2 who traveled to [place] (08/29 to 09/03) with her boyfriend who is also ill and was in our ER with reported negative work up will be admitted for further management of acute hypoxemic respiratory failure in the setting of CHF exacerbation secondary to takotsubo cardiomyopathy as well as multifocal pneumonia with sepsis Acute hypoxemic respiratory failure Multifocal in the setting of CHF exacerbation, URI, and multifocal pneumonia Viral respiratory panel -positive for human metapneumovirus. i/o negative for 1.3liter plan: continue iv lasix ,iv antibiotics ,Wean from high-flow oxygen as tolerated Acute CHF exacerbation/takotsubo cardiomyopathy Likely induced by viral or bacterial illness leading to stress induced myopathy Bedside echocardiogram showed -The left ventricular systolic function is moderate to severely decreased. The visually estimated ejection fraction is between 25-30%. CTA of the chest shows pulmonary edema,negative for pulm embolism. plan: Strict I&O,Cardiac diet IV Lasix 20 mg daily Cardiology consult noted -added asa, completed heaprin [id number] ,now on lovenox until respiratory status improves and get further cardiac workup done. Follow renal function electrolyte levels NSTEMI Troponins x2 flat but >3000 EKG with T-wave inversions in the precordial leads but no ELVIN Heparin drip per protocol recommended by Cardiology Continue baby aspirin No beta-blue or calcium channel blue per Cardiology Monitor on telemetry Cardiology consult-asa ,heparin drip-completed heaprin [id number] -switched to subQ Lovenox therapeutic in anticipation of cardiac catheterization once patient improves. Continue subQ Lovenox unless there is any sign of further bleeding . Multifocal pneumonia with sepsis Leukocytosis improving, tachypnea-impoved. Tachycardia secondary to cardiomyopathy. acute Lactic acidosis due to hypoperfusion from hypoxia, no severe sepsis/shock IV ceftriaxone azithromycin (initiated 09/10) Likely secondary to viral URI Strep pneumo antigen, Legionella antigen COPD exacerbation In setting of above IV methylprednisolone 40 mg b.i.d. DuoNebs q.4h while awake Guaifenesin p.r.n. DVT prophylaxis-on Lovenox. Quality Stroke Does the patient have a stroke diagnosis?: No VTE Prior VTE?: No VTE Risk Level:: Medical - moderate - high VTE Device Contraindication: Treatment Not Indicated VTE Drug Contraindication: N/A - Med Ordered
--- NOTE | 2024-09-13 11:31 | MHC.CM.PN ---
Per rounds, pt is not ready to DC, she is requiring high flow supplemental O2. CM to follow for DC needs. Financial counselor assisting pt. with obtaining health insurance.
[2024-09-13] MEDS: cefTRIAXone sodium 1 GM VIAL IVPUSH (14:20)
--- NOTE | 2024-09-13 14:42 | PM.PNCARD ---
Subjective Subjective Date of Service: 09/13/24 Interval history: Seen examined at bedside. Breathing is stable but she continues to be on high-flow oxygen. She also had episode of atrial fibrillation with rapid ventricular response overnight and was given amiodarone bolus. She converted back to sinus rhythm. Physical Exam Vital Signs: Last Vital Signs Temp 97.4 F 09/13/24 11:11 Pulse 96 09/13/24 11:11 Resp 20 09/13/24 11:11 BP 123/65 09/13/24 11:11 Pulse Ox 90 L 09/13/24 11:11 O2 Del Method High Flow Nasal Cannula 09/13/24 11:11 O2 Flow Rate 40 09/13/24 11:11 FiO2 35 09/13/24 11:11 Oxygen Flow Rate 3 09/10/24 13:57 BMI result Body Mass Index 31.7 GENERAL APPEARANCE: On high-flow oxygen. Appears comfortable. NECK: no carotid bruit, no jugular venous distention. SKIN: no suspicious lesions, warm and dry. HEART: no murmurs, regular rate and rhythm. LUNGS: clear to auscultation anteriorly. ABDOMEN: soft, nontender. EXTREMITIES: no edema. PERIPHERAL PULSES: equal. NEUROLOGIC: No gross deficits, AAO X 3 Objective Labs and Meds 09/11/24 06:58 09/11/24 06:58 Lab results: Laboratory Results - last 24 hr 09/10/24 09/12/24 16:52 19:11 aPTT Heparin Protocol 35.1 L D Ur Strep pneumoniae Ag Not Detected Progress Note: A&P Assessment and plan (1) COPD exacerbation: Status: Acute (2) Multifocal pneumonia: Status: Acute (3) Cardiomyopathy: Status: Acute (4) PAF (paroxysmal atrial fibrillation): Status: Acute (5) NSTEMI (non-ST elevated myocardial infarction): Status: Acute Plan [age] year female who is here for respiratory distress, elevated troponin and subtle ECG changes. Echocardiography has shown changes consistent with takotsubo cardiomyopathy. She is on subQ Lovenox. Still on high-flow oxygen. Continue gentle diuresis. Supportive care with antibiotics etc.. Avoid any beta-blockers or Cardizem because EF is low. Once she improves from the respiratory status and oxygen demand goes down then we can discuss transferred to [facility] for diagnostic angiography. She had episode of atrial fibrillation and was given bolus of amiodarone as well as digoxin. She is back in sinus rhythm. I do not want to give her amiodarone currently because of her advanced lung issues (sometimes can cause an acute hypersensitivity type reaction too). We will follow along with you. Thank you for allowing me to participate in the care of your patient. Please feel free to contact me if you have any questions. Time Spent With Patient Time: Total time managing care of this patient today ____ minutes. Progress Note: Quality Stroke Does the patient have a stroke diagnosis?: No Procedures Date of Service Date of Service: 09/13/24
--- NOTE | 2024-09-13 16:41 | P.CDIM_ITS ---
PROVIDER RESPONSE TEXT: To clarify, the appropriate diagnosis supported by the clinical indicators: Other (explain): HFrEF QUERY TEXT: PHYSICIAN'S DOCUMENTATION REQUEST Date of Query: 09/13/2024 12:49 PM EDT Patient Name: Earlene Causey Admit Date: 09/10/2024 Dear Monse Hoskins MD, A review of the medical record indicates additional documentation may be needed. Please review below and update the documentation accordingly. Clinical Indicators: Progress notes within the Plan: Acute CHF exacerbation/takotsubo cardiomyopathy. Beside echo showed - the left ventricular systolic function is moderately to severely decreased. The visually estimated ejection fraction is between 25-30%. BNP 805 H IV Lasix Cardiac diet Strict I&O's Please provide further specificity regarding the most likely type and acuity of CHF you are evaluatin g, treating, or monitoring. Systolic Please specify if Acute, Chronic, or Acute on chronic, or Unable to determine Diastolic Please specify if Acute, Chronic, or Acute on chronic, or Unable to determine Combined Systolic/Diastolic Please specify if Acute, Chronic, or Acute on chronic, or Unable to determine Other (explain) Clinically unable to determine (explain) Thank you, Vianey Christianson, CCS, CDIS Use of terms such as suspected, likely, concern for, or probable (associated with a specific diagnosi s that is being evaluated, monitored, or treated as if it exists) are acceptable and can be coded in the inpatient se tting, when documented at the time of discharge. Please use your independent medical judgment in providing your response. THIS QUERY IS PART OF THE PERMANENT MEDICAL RECORD
[2024-09-13] MEDS: Azithromycin 500 MG in 0.9 % Sodium Chloride 250 ML 125 MG IV (17:45)
[2024-09-13] MEDS: Melatonin 3 MG TABLET 6 MG PO (20:18)
[2024-09-13] MEDS: Acetaminophen 325 MG TABLET 650 MG PO (20:18)
[2024-09-14] VITALS (18 sets, daily range): BP systolic 113–136; BP diastolic 63–75; PULSE 79–96; RESP 16–22; TEMP 36.2–37.1; O2SAT 81–96
[2024-09-14] MEDS: Omeprazole 20 MG CAPSULE.DR PO ×2 (06:04→16:26)
[2024-09-14] MEDS: methylPREDNISolone Sod Succ 40 MG/ML VIAL IVPUSH ×2 (06:06→16:26)
[2024-09-14] MEDS: Enoxaparin Sodium 100 MG/ML SYRINGE 90 MG SUBCUT (06:09)
--- NOTE | 2024-09-14 06:51 | PC.NURSE ---
Patient was weened off high flow O2 during Monday day. As patient falling asleep, she was found to desat. Attempted to titrate to keep >88 as ordered, but required high flow to maintain for the night while asleep. Did well on high flow.
[2024-09-14 07:02] LABS: Anion Gap 11 (12-20); Blood Urea Nitrogen 20 mg/dL (9-16); Calcium 9.1 mg/dL (8.4-10.2); Carbon Dioxide 26 mmol/L (22-29); Chloride 104 mmol/L (96-108); Estimated Glomerular Filt Rate > 60; Glucose Random 122 mg/dL (60-115); Potassium 4.2 mmol/L (3.3-5.1); Sodium 137 mmol/L (135-145)
[2024-09-14] MEDS: guaiFENesin 200 MG/10 ML 10 ML LIQUID PO (07:36)
[2024-09-14] MEDS: Aspirin 81 MG TAB.CHEW PO (07:36)
[2024-09-14] MEDS: Furosemide 40 MG TABLET PO (07:36)
[2024-09-14] MEDS: 0.9 % Sodium Chloride Flush 3 ML SYRINGE IVFLUSH ×3 (07:37→20:37)
[2024-09-14] MEDS: Benzonatate 100 MG CAPSULE PO ×3 (07:37→20:33)
[2024-09-14] MEDS: levalbuterol HCL 1.25 MG/3 ML VIAL.NEB INHALE ×3 (08:22→19:48)
[2024-09-14 10:31] LABS: Hematocrit 41.5 % (37.0-47.0); Hemoglobin 14.3 g/dl (12.0-16.0); Mean Corpuscular HGB Conc 34.5 g/dl (31.0-35.0); Mean Corpuscular Hemoglobin 29.4 pg (27.0-33.0); Mean Corpuscular Volume 85.4 fL (80.0-98.0); Mean Platelet Volume 11.1 fL (9.4-12.3); Platelet Count 371 X10*3/uL (160-400); Red Blood Count 4.86 X10*6/uL (4.20-5.50); Red Cell Distribution Width 14.1 % (11.0-16.0); White Blood Count 14.7 X10*3/uL (4.8-10.8)
[2024-09-14] MEDS: cefTRIAXone sodium 1 GM VIAL IVPUSH (13:45)
--- NOTE | 2024-09-14 14:55 | P.PNIM_ITS ---
Subjective Subjective Date of Service: 09/14/24 Interval History: pneumonia ,haemoptysis Review of Systems sob improving still on high flow Physical Exam 2 Vital Signs: Vital Signs: Last Vital Signs Temp 97.4 F 09/14/24 10:54 Pulse 96 09/14/24 10:54 Resp 18 09/14/24 10:54 BP 118/63 09/14/24 10:54 Pulse Ox 93 09/14/24 10:54 O2 Del Method High Flow Nasal C annula 09/14/24 10:54 O2 Flow Rate 50 09/14/24 10:54 FiO2 50 09/14/24 10:54 Oxygen Flow Rate 3 09/10/24 13:57 BMI result Body Mass Index 31.7 Appearance: Alert.? Oriented X3.? cvs: [id number], [id number] . res: air entry improving,few scattered rales. abd: no rebound or guarding ,nt, bs present. ext pulses present , no cyanosis. neuro: nonfocal. Objective Data Active Medications Acetaminophen (Acetaminophen 325 Mg Tablet) 650 mg PO Q6H PRN PRN Reason: Pain, Mild 1-3,fever,headache Last Admin: 09/13/24 20:18 Dose: 650 mg Documented By: BARBARAZETamie Albuterol/Ipratropium (Albuterol/Iprat 2.5/0.5mg 3 Ml Ampul.Neb) 3 ml INHALE Q4H PRN PRN Reason: Wheezing Last Admin: 09/11/24 05:55 Dose: 3 ml Documented By: VICKEY Aspirin (Aspirin 81 Mg Tab.Chew) 81 mg PO DAILY [facility] Last Admin: 09/14/24 07:36 Dose: 81 mg Documented By: JAJA Benzonatate (Benzonatate 100 Mg Capsule) 100 mg PO TID [facility] Last Admin: 09/14/24 13:45 Dose: 100 mg Documented By: JAJA Calcium Carbonate (Calcium Carbonate 750 Mg Tab.Chew) 750 mg PO Q4H PRN PRN Reason: Heartburn Ceftriaxone Sodium (Ceftriaxone Sodium 1 Gm Vial) 1 gm IVPUSH Q24H [facility] Last Admin: 09/14/24 13:45 Dose: 1 gm Documented By: JAJA Furosemide (Furosemide 40 Mg Tablet) 40 mg PO DAILY [facility]; Protocol Last Admin: 09/14/24 07:36 Dose: 40 mg Documented By: JAJA Guaifenesin (Guaifenesin 200 Mg/10 Ml 10 Ml Liquid) 10 ml PO Q4H PRN PRN Reason: Cough Last Admin: 09/14/24 07:36 Dose: 10 ml Documented By: JAJA Guaifenesin (Guaifenesin 200 Mg/10 Ml 10 Ml Liquid) 10 ml PO Q4H PRN PRN Reason: Cough Azithromycin 500 mg/ Sodium (Chloride) 250 mls @ 125 mls/hr IV Q24H [facility] Last Infusion: 09/13/24 20:30 Dose: Infused Documented By: JEFF Levalbuterol HCl (Levalbuterol Hcl 1.25 Mg/3 Ml Vial.Neb) 1.25 mg INHALE RTID [facility] Last Admin: 09/14/24 08:22 Dose: 1.25 mg Documented By: PHONG Magnesium Hydroxide (Milk Of Magnesia 30 Ml Oral.Susp) 30 ml PO DAILY PRN PRN Reason: Constipation Melatonin (Melatonin 3 Mg Tablet) 6 mg PO BEDTIME PRN PRN Reason: Insomnia Last Admin: 09/13/24 20:18 Dose: 6 mg Documented By: JEFF Methylprednisolone Sodium Succinate (Methylprednisolone Sod Succ 40 Mg/Ml Vial) 40 mg IVPUSH Q12H [facility] Last Admin: 09/14/24 06:06 Dose: 40 mg Documented By: DIANA Omeprazole (Omeprazole 20 Mg Capsule.) 20 mg PO BID@0630,1630 [facility] Last Admin: 09/14/24 06:04 Dose: 20 mg Documented By: DIANA Sodium Chloride (0.9 % Sodium Chloride Flush 3 Ml Syringe) 3 ml IVFLUSH QSHIFT [facility] Last Admin: 09/14/24 07:37 Dose: 3 ml Documented By: JJAA Labs 09/14/24 10:13 09/14/24 06:03 Labs: Laboratory Results - last 24 hr 09/14/24 09/14/24 06:03 10:13 MCV 85.4 MCH 29.4 MCHC 34.5 RDW 14.1 Plt Count 371 D MPV 11.1 Absolute Nucleated RBC 0.000 Nucleated RBC % (auto) 0.0 Hold Purple Top SEE NOTE Anion Gap 11 L Estim Creat Clear Calc 89.0 Estimated GFR > 60 Random Glucose 122 H Calcium 9.1 Blood Type O Positive Antibody Screen NEGATIVE Assessment and Plan (1) PAF (paroxysmal atrial fibrillation): Status: Acute (2) COPD exacerbation: Status: Acute (3) Multifocal pneumonia: Status: Acute Assessment and Plan: 63 yo female with PMH of heavy smoking though did quit 10 to 12 years ago, COPD not on home O2 who traveled to [place] (08/29 to 09/03) with her boyfriend who is also ill and was in our ER with reported negative work up will be admitted for further management of acute hypoxemic respiratory failure in the setting of CHF exacerbation secondary to takotsubo cardiomyopathy as well as multifocal pneumonia with sepsis Acute hypoxemic respiratory failure Multifocal in the setting of CHF exacerbation, URI, and multifocal pneumonia Viral respiratory panel -positive for human metapneumovirus. i/o negative for 1.3liter plan:continue iv lasix ,iv antibiotics ,Wean from high-flow oxygen as tolerated Hemoptysis-she saying slowly has more blood-tinged sputum, hold Lovenox Acute CHF exacerbation/takotsubo cardiomyopathy Likely induced by viral or bacterial illness leading to stress induced myopathy Bedside echocardiogram showed -The left ventricular systolic function is moderate to severely decreased. The visually estimated ejection fraction is between 25-30%. CTA of the chest shows pulmonary edema,negative for pulm embolism. plan: Strict I&O,Cardiac diet IV Lasix 20 mg daily Cardiology consult noted -added asa, completed heaprin [id number] , hold Lovenox in light of hemoptysis. Follow renal function electrolyte levels NSTEMI Troponins x2 flat but >3000 EKG with T-wave inversions in the precordial leads but no ELVIN Heparin drip per protocol recommended by Cardiology Continue baby aspirin No beta-blue or calcium channel blue per Cardiology Monitor on telemetry Cardiology consult-asa ,heparin drip-completed heaprin [id number] -afterwards patient was on Lovenox, which is on hold now currently due to hemoptysis. Multifocal pneumonia with sepsis Leukocytosis, tachycardia improving, Tachycardia secondary to cardiomyopathy. acute Lactic acidosis due to hypoperfusion from hypoxia, no severe sepsis/shock. Patient has hemoptysis-we will add CT chest to check follow-up for pneumonia//hemoptysis. IV ceftriaxone azithromycin (initiated 09/10) Likely secondary to viral URI Strep pneumo antigen, Legionella antigen COPD exacerbation In setting of above IV methylprednisolone 40 mg b.i.d. DuoNebs q.4h while awake Guaifenesin p.r.n. DVT prophylaxis-on Lovenox. Quality Stroke Does the patient have a stroke diagnosis?: No VTE Prior VTE?: No VTE Risk Level:: Medical - moderate - high VTE Device Contraindication: Treatment Not Indicated VTE Drug Contraindication: N/A - Med Ordered
[2024-09-14 18:19] LABS: Legionella Pneumophila Ab IgM <1:256 TITER
[2024-09-14] MEDS: Azithromycin 500 MG in 0.9 % Sodium Chloride 250 ML 125 MG IV (19:10)
[2024-09-14] MEDS: Melatonin 3 MG TABLET 6 MG PO (22:19)
[2024-09-15] VITALS (14 sets, daily range): BP systolic 119–136; BP diastolic 59–67; PULSE 68–102; RESP 16–18; TEMP 36.2–37.1; O2SAT 90–94
[2024-09-15 05:38] LABS: Legionella Ag Urine Not Detected (Not Detected)
[2024-09-15] MEDS: methylPREDNISolone Sod Succ 40 MG/ML VIAL IVPUSH ×2 (06:14→17:00)
[2024-09-15] MEDS: Omeprazole 20 MG CAPSULE.DR PO ×2 (06:14→17:00)
[2024-09-15 07:07] LABS: Hematocrit 41.3 % (37.0-47.0); Hemoglobin 13.9 g/dl (12.0-16.0); Mean Corpuscular HGB Conc 33.7 g/dl (31.0-35.0); Mean Corpuscular Hemoglobin 29.4 pg (27.0-33.0); Mean Corpuscular Volume 87.5 fL (80.0-98.0); Mean Platelet Volume 11.1 fL (9.4-12.3); Platelet Count 358 X10*3/uL (160-400); Red Blood Count 4.72 X10*6/uL (4.20-5.50); Red Cell Distribution Width 13.8 % (11.0-16.0); White Blood Count 15.5 X10*3/uL (4.8-10.8)
[2024-09-15] MEDS: levalbuterol HCL 1.25 MG/3 ML VIAL.NEB INHALE ×3 (08:35→20:15)
[2024-09-15] MEDS: Aspirin 81 MG TAB.CHEW PO (08:43)
[2024-09-15] MEDS: guaiFENesin 200 MG/10 ML 10 ML LIQUID PO ×2 (08:43→13:56)
[2024-09-15] MEDS: Benzonatate 100 MG CAPSULE PO ×3 (08:43→20:48)
[2024-09-15] MEDS: 0.9 % Sodium Chloride Flush 3 ML SYRINGE IVFLUSH ×2 (08:43→17:00)
[2024-09-15] MEDS: Furosemide 40 MG TABLET PO (08:43)
[2024-09-15] MEDS: cefTRIAXone sodium 1 GM VIAL IVPUSH (13:56)
[2024-09-15] MEDS: Docusate Sodium 100 MG CAPSULE PO (13:56)
--- NOTE | 2024-09-15 15:15 | P.PNIM_ITS ---
Subjective Subjective Date of Service: 09/15/24 Interval History: pneumonia Review of Systems sob seems improving no fevers Physical Exam 2 Vital Signs: Vital Signs: Last Vital Signs Temp 97.6 F 09/15/24 11:51 Pulse 102 H 09/15/24 14:55 Resp 18 09/15/24 14:56 BP 126/67 09/15/24 11:51 Pulse Ox 90 L 09/15/24 11:51 O2 Del Method High Flow Nasal C annula 09/15/24 11:51 O2 Flow Rate 50 09/15/24 11:51 FiO2 50 09/15/24 11:51 Oxygen Flow Rate 3 09/10/24 13:57 BMI result Body Mass Index 31.7 Appearance: Alert.? Oriented X3.? cvs: rrr, [id number] . res: air entry improving,few scattered rales. abd: no rebound or guarding ,nt, bs present. ext pulses present , no cyanosis. neuro: nonfocal. Objective Data Active Medications Acetaminophen (Acetaminophen 325 Mg Tablet) 650 mg PO Q6H PRN PRN Reason: Pain, Mild 1-3,fever,headache Last Admin: 09/13/24 20:18 Dose: 650 mg Documented By: KEE-JOZETamie Albuterol/Ipratropium (Albuterol/Iprat 2.5/0.5mg 3 Ml Ampul.Neb) 3 ml INHALE Q4H PRN PRN Reason: Wheezing Last Admin: 09/11/24 05:55 Dose: 3 ml Documented By: VICKEY Aspirin (Aspirin 81 Mg Tab.Chew) 81 mg PO DAILY [facility] Last Admin: 09/15/24 08:43 Dose: 81 mg Documented By: BRENNANMAIsacc Benzonatate (Benzonatate 100 Mg Capsule) 100 mg PO TID [facility] Last Admin: 09/15/24 13:56 Dose: 100 mg Documented By: JAJA Calcium Carbonate (Calcium Carbonate 750 Mg Tab.Chew) 750 mg PO Q4H PRN PRN Reason: Heartburn Ceftriaxone Sodium (Ceftriaxone Sodium 1 Gm Vial) 1 gm IVPUSH Q24H [facility] Last Admin: 09/15/24 13:56 Dose: 1 gm Documented By: JAJA Docusate Sodium (Docusate Sodium 100 Mg Capsule) 100 mg PO BID PRN PRN Reason: Constipation Last Admin: 09/15/24 13:56 Dose: 100 mg Documented By: JAJA Furosemide (Furosemide 40 Mg Tablet) 40 mg PO DAILY [facility]; Protocol Last Admin: 09/15/24 08:43 Dose: 40 mg Documented By: MIRELLA Guaifenesin (Guaifenesin 200 Mg/10 Ml 10 Ml Liquid) 10 ml PO Q4H PRN PRN Reason: Cough Last Admin: 09/15/24 13:56 Dose: 10 ml Documented By: JAJA Guaifenesin (Guaifenesin 200 Mg/10 Ml 10 Ml Liquid) 10 ml PO Q4H PRN PRN Reason: Cough Azithromycin 500 mg/ Sodium (Chloride) 250 mls @ 125 mls/hr IV Q24H [facility] Last Infusion: 09/14/24 21:18 Dose: Infused Documented By: KEMI Levalbuterol HCl (Levalbuterol Hcl 1.25 Mg/3 Ml Vial.Neb) 1.25 mg INHALE RTID [facility] Last Admin: 09/15/24 14:55 Dose: 1.25 mg Documented By: PHONG Magnesium Hydroxide (Milk Of Magnesia 30 Ml Oral.Susp) 30 ml PO DAILY PRN PRN Reason: Constipation Melatonin (Melatonin 3 Mg Tablet) 6 mg PO BEDTIME PRN PRN Reason: Insomnia Last Admin: 09/14/24 22:19 Dose: 6 mg Documented By: KEMI Methylprednisolone Sodium Succinate (Methylprednisolone Sod Succ 40 Mg/Ml Vial) 40 mg IVPUSH Q12H [facility] Last Admin: 09/15/24 06:14 Dose: 40 mg Documented By: KEMI Omeprazole (Omeprazole 20 Mg Capsule.) 20 mg PO BID@0630,1630 [facility] Last Admin: 09/15/24 06:14 Dose: 20 mg Documented By: KEMI Sodium Chloride (0.9 % Sodium Chloride Flush 3 Ml Syringe) 3 ml IVFLUSH QSHIFT [facility] Last Admin: 09/15/24 08:43 Dose: 3 ml Documented By: MIRELLA Labs 09/15/24 06:31 09/14/24 06:03 Labs: Laboratory Results - last 24 hr 09/10/24 09/10/24 09/15/24 16:19 16:52 06:31 MCV 87.5 MCH 29.4 MCHC 33.7 RDW 13.8 Plt Count 358 MPV 11.1 Absolute Nucleated RBC 0.000 Nucleated RBC % (auto) 0.0 L.pneumophila IgM Ab <1:256 Ur L.pneumophila Ag Not Detected Assessment and Plan (1) PAF (paroxysmal atrial fibrillation): Status: Acute (2) COPD exacerbation: Status: Acute (3) Multifocal pneumonia: Status: Acute Assessment and Plan: 63 yo female with PMH of heavy smoking though did quit 10 to 12 years ago, COPD not on home O2 who traveled to [place] (08/29 to 09/03) with her boyfriend who is also ill and was in our ER with reported negative work up will be admitted for further management of acute hypoxemic respiratory failure in the setting of CHF exacerbation secondary to takotsubo cardiomyopathy as well as multifocal pneumonia with sepsis Acute hypoxemic respiratory failure Multifocal in the setting of CHF exacerbation, URI, and multifocal pneumonia Viral respiratory panel -positive for human metapneumovirus. i/o negative for 1.3liter plan:continue iv lasix ,iv antibiotics ,Wean from high-flow oxygen as tolerated Hemoptysis-she saying slowly has more blood-tinged sputum, hold Lovenox Acute CHF exacerbation/takotsubo cardiomyopathy Likely induced by viral or bacterial illness leading to stress induced myopathy Bedside echocardiogram showed -The left ventricular systolic function is moderate to severely decreased. The visually estimated ejection fraction is between 25-30%. CTA of the chest shows pulmonary edema,negative for pulm embolism. plan: Strict I&O,Cardiac diet IV Lasix 20 mg daily Cardiology consult noted -added asa, completed heaprin [id number] , hold Lovenox in light of hemoptysis. Follow renal function electrolyte levels NSTEMI Troponins x2 flat but >3000 EKG with T-wave inversions in the precordial leads but no ELVIN Heparin drip per protocol recommended by Cardiology Continue baby aspirin No beta-blue or calcium channel blue per Cardiology Monitor on telemetry Cardiology consult-asa ,heparin drip-completed heaprin [id number] -afterwards patient was on Lovenox, which is on hold now currently due to hemoptysis. Multifocal pneumonia with sepsis Leukocytosis, tachycardia improving, Tachycardia secondary to cardiomyopathy. acute Lactic acidosis due to hypoperfusion from hypoxia, no severe sepsis/shock. Patient has hemoptysis-we will add CT chest to check follow-up for pneumonia//hemoptysis. IV ceftriaxone azithromycin (initiated 09/10) Likely secondary to viral URI Strep pneumo antigen, Legionella antigen COPD exacerbation In setting of above IV methylprednisolone 40 mg b.i.d. DuoNebs q.4h while awake Guaifenesin p.r.n. DVT prophylaxis-on Lovenox. Quality Stroke Does the patient have a stroke diagnosis?: No VTE Prior VTE?: No VTE Risk Level:: Medical - moderate - high VTE Device Contraindication: Treatment Not Indicated VTE Drug Contraindication: N/A - Med Ordered
[2024-09-15] MEDS: Azithromycin 500 MG in 0.9 % Sodium Chloride 250 ML 96 MG IV (18:34)
[2024-09-15] MEDS: Acetaminophen 325 MG TABLET 650 MG PO (20:47)
[2024-09-15] MEDS: Melatonin 3 MG TABLET 6 MG PO (20:49)
[2024-09-16] VITALS (14 sets, daily range): BP systolic 122–153; BP diastolic 63–79; PULSE 76–102; RESP 15–18; TEMP 36.1–36.4; O2SAT 91–96
[2024-09-16] MEDS: methylPREDNISolone Sod Succ 40 MG/ML VIAL IVPUSH (05:26)
[2024-09-16] MEDS: Omeprazole 20 MG CAPSULE.DR PO ×2 (05:26→17:18)
--- NOTE | 2024-09-16 07:00 | CA_ITS ---
Transthoracic Echocardiogram Patient (Last, First, Middle): Earlene Causey, Gender: Female Date of : 1960 Age: 63 Procedure Date: 09/16/2024 Procedure Type: Transthoracic Echocardiogram Location: [facility] [place] Height: 162.56 cm Weight: 83.46 kg BSA: 1.89 m2 Heart Rate: 89 bpm BP: 128 / 66 mmHg Investment Banking Manager: ANTIONE Dias MD: Monse Hoskins MD Health Support Specialist: Tanvir Mazariegos MD Symptoms: elevated troponins Study Quality: Adequate/limited ordered ECG Rhythm: Sinus Conclusions: - Mildly reduced LV ejection fraction of 45-50% with persistent wall motion abnormality Findings Left Ventricle Normal left ventricular cavity size. There is normal left ventricular wall thickness. The left ventricular systolic function is mildly decreased. The visually estimated ejection fraction is between 45-50%. Wall Motion Rest Echo Findings The inferior wall, the apical lateral, apical septum, mid inferoseptal, and mid anteroseptal segments are hypokinetic. The apex segment is akinetic. All other scored wall segments showed normal motion. Prior Study Comparison Changes noted compared to prior study dated: 09/10/2024. LV function has improved Measurements 2D Linear Measurements IVSd: 1.01 0.6-0.9/0.6-1.0 cm LVIDd: 4.73 3.9-5.3/4.2-5.9 cm LVIDd Index: 2.50 2.4-3.2/2.2-3.1 cm/m2 LVIDs: 3.53 2.0-3.6 cm LVPWd: 1.07 0.7-1.1 cm LA Diam: 3.50 2.7-3.8/3.0-4.0 cm LAIDs Index: 1.85 1.5-2.3 cm/m2 LV Mass: 218.40 67-162/88-224 g LV Mass Index: 115.55 43-95/49-115 g/m2 LVOT Diam: 1.90 3.0+(-)1.3 cm 2D Systolic Function EF 4C: 46.40 >55% EF 2C: 50.90 >55% EF BiP: 49.40 >55% Mitral Valve MV Pk E: 0.77 MV PK A: 1.00 MV Decel Time: 184.00 E/A: 0.80 E'Lateral: 6.74 E'Medial: 4.57 E/E' Med: 16.90 E/E' Lat: 11.40 PHT: 54.00 MVA PHT: 4.07 Decel Berrien: 4.20 LVOT LVOT Pk Gaetano: 0.87 LVOT Mn Gaetano: 0.57 LVOT VTI: 0.16 LVOT Pk Grad: 3.00 LVOT Mn Grad: 2.00 LVOT Diam: 1.90 LVOT Area: 2.84 Diastolic Function MV Pk E: 0.77 MV Pk A: 1.00 E/A: 0.80 E'Medial: 4.57 E/E' Med: 16.90 E' Laterial: 6.74 E/E' Lat: 11.40 Tricuspid Valve RA Press: 3.00 Updated in Other Vendor System with Status of Final Tanvir Mazariegos MD electronically signed on 09/16/2024 12:02:52 PM with status of Final
[2024-09-16] MEDS: levalbuterol HCL 1.25 MG/3 ML VIAL.NEB INHALE ×3 (08:23→20:00)
[2024-09-16] MEDS: Aspirin 81 MG TAB.CHEW PO (09:29)
[2024-09-16] MEDS: 0.9 % Sodium Chloride Flush 3 ML SYRINGE IVFLUSH ×3 (09:29→23:53)
[2024-09-16] MEDS: Furosemide 40 MG TABLET PO (09:29)
[2024-09-16] MEDS: Benzonatate 100 MG CAPSULE PO ×3 (09:32→21:14)
--- NOTE | 2024-09-16 09:49 | PM.PNCARD ---
Subjective Subjective Date of Service: 09/16/24 Principal diagnosis: respiratory failure, pneumonia, NSTEMI Interval history: patient was not having any chest pain. Continues to be short of breath and requiring high flow oxygen. Denies any palpitations. No overnight atrial fibrillation. Hemodynamically stable. Feels better than when she came in. Review of Systems Constitutional: Reports weakness Cardiovascular: Denies chest pain, Denies leg edema, Denies lightheadedness, Denies palpitations and Reports dyspnea Respiratory: Reports chest congestion, Reports cough, Reports hemoptysis and Reports dyspnea Genitourinary: Reports no additional female genitourinary complaints Reports system reviewed and no additional complaints, except as documented and Reports weakness Endocrine: Denies palpitations Physical Exam Vital Signs: Last Vital Signs Temp 97.4 F 09/16/24 07:11 Pulse 91 09/16/24 08:23 Resp 15 09/16/24 08:23 BP 128/66 09/16/24 07:11 Pulse Ox 91 L 09/16/24 07:11 O2 Del Method High Flow Nasal Cannula 09/16/24 07:11 O2 Flow Rate 50 09/16/24 07:11 FiO2 45 09/16/24 07:11 Oxygen Flow Rate 3 09/10/24 13:57 BMI result Body Mass Index 31.7 Const General: cooperative, alert, awake and in distress mild and respiratory Nutritional Appearance: average body habitus Orientation/consciousness: patient oriented x3 Neck Neck: Yes trachea midline, Yes supple and Yes no JVD Resp Effort & Inspection: respiratory distress Auscultation: crackles and wheezes Cardio Rate: regular rate Rhythm: regular rhythm Heart sounds: S1 normal heart sound present, S2 normal heart sound present, no click, no gallops, no murmurs and no rubs GI Auscultation: normal bowel sounds Skin General skin exam: no rashes or lesions noted Neuro General: patient oriented x3 and no focal motor deficits Extrem General: Yes no clubbing, cyanosis or edema Objective Labs and Meds 09/15/24 06:31 09/14/24 06:03 Progress Note: A&P Assessment and plan (1) Non-ST elevation [place] (NSTEMI): Status: Acute Assessment and Plan: NSTEMI could be stress-induced/ takotsubo cardiomyopathy. Coronary artery disease can not be entirely ruled out given her risk factors. Will repeat echocardiogram. Continue aspirin high-intensity statin therapy. Can not anticoagulate due to mild hemoptysis. Maybe add a low low-dose of metoprolol 12.5 mg q.6 hours. Follow-up echocardiogram today. (2) Acute hypoxemic respiratory failure: Status: Acute Assessment and Plan: Acute hypoxemic respiratory failure in patient with severe COPD and now multifocal pneumonia. Mibi a component of congestive heart failure. Gentle diuresis with Lasix 20 mg IV b.i.d.. Continue supportive care. Continue aggressive management of pneumonia. Once respiratory status improvement in need ischemic workup, probably with a cardiac catheterization. (3) PAF (paroxysmal atrial fibrillation): Status: Acute Assessment and Plan: Paroxysmal atrial fibrillation due to acute medical condition. This resolved very quickly. Has had no recurrence. Start low-dose metoprolol as above. Will continue monitor. Will follow with you Time Spent With Patient Time: Total time managing care of this patient today ____ minutes. Progress Note: Quality Stroke Does the patient have a stroke diagnosis?: No Procedures Date of Service Date of Service: 09/16/24
[2024-09-16] MEDS: Furosemide 20 MG/2 ML VIAL IVPUSH ×2 (11:23→21:14)
--- NOTE | 2024-09-16 13:17 | MHC.CM.PN ---
Per rounds, pt is not ready to DC, she is requiring high flow supplemental O2. CM to follow for DC needs.
--- NOTE | 2024-09-16 13:19 | P.PNIM_ITS ---
Subjective Subjective Date of Service: 09/16/24 Interval History: pneumonia Review of Systems sob seems improving denies any chest pain haemoptysis slowly improving Physical Exam 2 Vital Signs: Vital Signs: Last Vital Signs Temp 97.5 F 09/16/24 11:20 Pulse 94 09/16/24 11:20 Resp 16 09/16/24 11:24 BP 135/79 09/16/24 11:20 Pulse Ox 93 09/16/24 11:20 O2 Del Method High Flow Nasal C annula 09/16/24 11:20 O2 Flow Rate 45 09/16/24 11:20 FiO2 47 09/16/24 11:20 Oxygen Flow Rate 3 09/10/24 13:57 BMI result Body Mass Index 31.7 Appearance: Alert.? Oriented X3.? cvs: rrr, [id number] . res: air entry improving,few scattered rales. abd: no rebound or guarding ,nt, bs present. ext pulses present , no cyanosis. neuro: nonfocal. Objective Data Active Medications Acetaminophen (Acetaminophen 325 Mg Tablet) 650 mg PO Q6H PRN PRN Reason: Pain, Mild 1-3,fever,headache Last Admin: 09/15/24 20:47 Dose: 650 mg Documented By: KATELYN Albuterol/Ipratropium (Albuterol/Iprat 2.5/0.5mg 3 Ml Ampul.Neb) 3 ml INHALE Q4H PRN PRN Reason: Wheezing Last Admin: 09/11/24 05:55 Dose: 3 ml Documented By: VICKEY Aspirin (Aspirin 81 Mg Tab.Chew) 81 mg PO DAILY [facility] Last Admin: 09/16/24 09:29 Dose: 81 mg Documented By: SHYLA Benzonatate (Benzonatate 100 Mg Capsule) 100 mg PO TID [facility] Last Admin: 09/16/24 09:32 Dose: 100 mg Documented By: SHYLA Calcium Carbonate (Calcium Carbonate 750 Mg Tab.Chew) 750 mg PO Q4H PRN PRN Reason: Heartburn Ceftriaxone Sodium (Ceftriaxone Sodium 1 Gm Vial) 1 gm IVPUSH Q24H [facility] Last Admin: 09/15/24 13:56 Dose: 1 gm Documented By: JAJA Docusate Sodium (Docusate Sodium 100 Mg Capsule) 100 mg PO BID PRN PRN Reason: Constipation Last Admin: 09/15/24 13:56 Dose: 100 mg Documented By: JAJA Furosemide (Furosemide 20 Mg/2 Ml Vial) 20 mg IVPUSH Q12H [facility]; Protocol Last Admin: 09/16/24 11:23 Dose: 20 mg Documented By: SHYLA Guaifenesin (Guaifenesin 200 Mg/10 Ml 10 Ml Liquid) 10 ml PO Q4H PRN PRN Reason: Cough Last Admin: 09/15/24 13:56 Dose: 10 ml Documented By: JAJA Guaifenesin (Guaifenesin 200 Mg/10 Ml 10 Ml Liquid) 10 ml PO Q4H PRN PRN Reason: Cough Azithromycin 500 mg/ Sodium (Chloride) 250 mls @ 125 mls/hr IV Q24H [facility] Last Infusion: 09/15/24 21:11 Dose: Infused Documented By: VAIBHAV Levalbuterol HCl (Levalbuterol Hcl 1.25 Mg/3 Ml Vial.Neb) 1.25 mg INHALE RTID [facility] Last Admin: 09/16/24 08:23 Dose: 1.25 mg Documented By: AUGUSTO Magnesium Hydroxide (Milk Of Magnesia 30 Ml Oral.Susp) 30 ml PO DAILY PRN PRN Reason: Constipation Melatonin (Melatonin 3 Mg Tablet) 6 mg PO BEDTIME PRN PRN Reason: Insomnia Last Admin: 09/15/24 20:49 Dose: 6 mg Documented By: KATELYN Methylprednisolone Sodium Succinate (Methylprednisolone Sod Succ 40 Mg/Ml Vial) 40 mg IVPUSH Q12H [facility] Last Admin: 09/16/24 05:26 Dose: 40 mg Documented By: KATELYN Metoprolol Tartrate (Metoprolol Tartrate 12.5 Mg Halftab) 12.5 mg PO BID [facility]; Protocol Omeprazole (Omeprazole 20 Mg Capsule.Dr) 20 mg PO BID@0630,1630 [facility] Last Admin: 09/16/24 05:26 Dose: 20 mg Documented By: KATELYN Sodium Chloride (0.9 % Sodium Chloride Flush 3 Ml Syringe) 3 ml IVFLUSH QSHIFT [facility] Last Admin: 09/16/24 09:29 Dose: 3 ml Documented By: SHYLA Labs 09/15/24 06:31 09/14/24 06:03 Microbiology Microbiology Results: Microbiology 09/10/24 14:21 Blood Culture - Final Blood - Venous No growth after 5 days. 09/10/24 14:21 Blood Culture - Final Blood - Venous No growth after 5 days. Assessment and Plan (1) PAF (paroxysmal atrial fibrillation): Status: Acute (2) COPD exacerbation: Status: Acute (3) Multifocal pneumonia: Status: Acute Plan 63 yo female with PMH of heavy smoking though did quit 10 to 12 years ago, COPD not on home O2 who traveled to [place] (08/29 to 09/03) with her boyfriend who is also ill and was in our ER with reported negative work up will be admitted for further management of acute hypoxemic respiratory failure in the setting of CHF exacerbation secondary to takotsubo cardiomyopathy as well as multifocal pneumonia with sepsis Acute hypoxemic respiratory failure Multifocal in the setting of CHF exacerbation, URI, and multifocal pneumonia Viral respiratory panel -positive for human metapneumovirus. i/o negative for 1.3liter plan:continue iv lasix ,iv antibiotics ,Wean from high-flow oxygen as tolerated Hemoptysis-she saying slowly improving, hold Lovenox Acute CHF exacerbation/takotsubo cardiomyopathy Likely induced by viral or bacterial illness leading to stress induced myopathy Bedside echocardiogram showed -The left ventricular systolic function is moderate to severely decreased. The visually estimated ejection fraction is between 25-30%. CTA of the chest shows pulmonary edema,negative for pulm embolism. plan: Strict I&O negative 2.5 liter adjusted IV Lasix 20 mg bid Cardiology following Follow renal function electrolyte levels NSTEMI Troponins x2 flat but >3000 EKG with T-wave inversions in the precordial leads but no ELVIN Heparin drip per protocol recommended by Cardiology Continue baby aspirin No beta-blue or calcium channel blue per Cardiology Monitor on telemetry added Limited echo Cardiology consult-asa ,small dose bb,heparin drip-completed heaprin [id number] -afterwards patient was on Lovenox, which is on hold now currently due to hemoptysis. afib : brief episode -given amidarone (09/13/24): please refer to dr murphy's note. patient converted to nsr started small dose bb, also please see nsetmi section for AC. cardiology following Multifocal pneumonia with sepsis Leukocytosis, tachycardia improving, Tachycardia secondary to cardiomyopathy. acute Lactic acidosis due to hypoperfusion from hypoxia, no severe sepsis/shock. Patient has hemoptysis-we will add CT chest to check follow-up for pneumonia//hemoptysis. IV ceftriaxone azithromycin (initiated 09/10) Likely secondary to viral URI Strep pneumo antigen, Legionella antigen pulm following COPD exacerbation In setting of above continue nebs,steriods as adjusted per pulmonary,Guaifenesin p.r.n. Incidental findings ct abd:Masslike density in the right upper quadrant may represent volume averaging artifact. added us abd mild elevated lft's no abd pain will add Gi eval DVT prophylaxis-on Lovenox. ongoing need: Acute hypoxemic respiratory failure multifactorial as above-need IV diuretics as well as on IV steroids high dose. Taper high-flow oxygen. Follow-up renal function electrolytes as well as Cardiology and Pulmonary follow-up. Quality Stroke Does the patient have a stroke diagnosis?: No VTE Prior VTE?: No VTE Risk Level:: Medical - moderate - high VTE Device Contraindication: Treatment Not Indicated VTE Drug Contraindication: N/A - Med Ordered
[2024-09-16] MEDS: Doxycycline Hyclate 100 MG in 0.9 % Sodium Chloride 250 ML 166.67 MG IV (14:52)
[2024-09-16] MEDS: cefTRIAXone sodium 1 GM VIAL IVPUSH (14:52)
[2024-09-16] MEDS: methylPREDNISolone Sod Succ 40 MG/ML VIAL 80 MG IVPUSH ×2 (14:52→21:14)
[2024-09-16 15:07] LABS: Erythrocyte Sedimentation Rate 6 MM/HR (0-20)
[2024-09-16 16:33] LABS: MRSA Nasal PCR NEGATIVE (Negative); SA Nasal PCR NEGATIVE (Negative)
--- NOTE | 2024-09-16 16:47 | P.PNPL_ITS ---
Subjective Subjective Date of Service: 09/16/24 Principal diagnosis: respiratory failure, pneumonia, NSTEMI Interval history: The patient was seen on exam. Still on high-flow. Coughing up blood. The blood appears to be dark. It is not mixed in with phlegm. At least what I was able to see. Still on high-flow. Has significant wheezing on exam. Objective Data Labs 09/15/24 06:31 09/14/24 06:03 Labs: Laboratory Results - last 24 hr 09/16/24 09/16/24 14:13 15:16 ESR 6 Nasal Screen MRSA (PCR) NEGATIVE Nasal S. aureus Screen NEGATIVE Nasal MRSA/S.aureus Interp SEE NOTE Microbiology Microbiology Results: Microbiology 09/10/24 14:21 Blood - Venous Blood Culture - Final No growth after 5 days. 09/10/24 14:21 Blood - Venous Blood Culture - Final No growth after 5 days. 09/10/24 Unknown Urine clean catch - Clean Catch Midstream Urine Culture - Final 09/12/24 05:23 Sputum - Expectorated Gram Stain - Final 09/12/24 05:23 Sputum - Expectorated Sputum Culture - Final Review of Systems Constitutional: Reports weakness Cardiovascular: Denies chest pain, Denies leg edema, Denies lightheadedness, Denies palpitations and Reports dyspnea Respiratory: Reports chest congestion, Reports cough, Reports hemoptysis and Reports dyspnea Genitourinary: Reports no additional female genitourinary complaints Reports system reviewed and no additional complaints, except as documented and Reports weakness Endocrine: Denies palpitations Physical Exam 2 Vital Signs: Vital Signs: Last Vital Signs Temp 97.4 F 09/16/24 15:17 Pulse 102 H 09/16/24 15:17 Resp 17 09/16/24 15:23 BP 153/73 H 09/16/24 15:17 Pulse Ox 95 09/16/24 15:17 O2 Del Method High Flow Nasal C annula 09/16/24 15:17 O2 Flow Rate 45 09/16/24 15:17 FiO2 50 09/16/24 15:17 Oxygen Flow Rate 3 09/10/24 13:57 BMI result Body Mass Index 31.7 Const: General: cooperative, alert, awake and in distress mild and respiratory Nutritional Appearance: average body habitus Orientation/consciousness: p atient oriented x3 Neck: Neck: Yes trachea midline, Yes supple and Yes no JVD Resp: Effort & Inspection: respiratory distress Auscultation: crackles and wheezes Cardio: Rate: regular rate Rhythm: regular rhythm Heart sounds: S1 normal heart sound present, S2 normal heart sound present, no click, no gallops, no murmurs and no rubs GI: Auscultation: normal bowel sounds Skin: General skin exam: no rashes or lesions noted Neuro: General: patient oriented x3 and no focal motor deficits Extrem: General: Yes no clubbing, cyanosis or edema Procedures Date of Service Date of Service: 09/16/24 Assessment and Plan Assessment and plan (1) COPD exacerbation: Status: Acute (2) Multifocal pneumonia: Status: Acute (3) Acute hypoxemic respiratory failure: Status: Acute (4) Hemoptysis: Status: Acute Plan Increase Solumedrol MRSA screen changed Zythromax to Doxycycline continue CTX respiratory therapy CXR today holding Lovenox Bloodwork continue HF to Keep pox>90% Time Spent With Patient Time: Total time managing care of this patient today ____ minutes. Progress Note: Quality Stroke Does the patient have a stroke diagnosis?: No
[2024-09-16] MEDS: Nystatin Oral Susp 500,000 UNIT/5 ML ORAL.SUSP 500000 UNIT PO (21:14)
[2024-09-16] MEDS: Metoprolol Tartrate 12.5 MG HALFTAB PO (21:14)
[2024-09-16] MEDS: Melatonin 3 MG TABLET 6 MG PO (23:52)
[2024-09-17] VITALS (14 sets, daily range): BP systolic 118–131; BP diastolic 59–67; PULSE 76–95; RESP 17–20; TEMP 36.1–36.5; O2SAT 92–95
[2024-09-17] MEDS: Doxycycline Hyclate 100 MG in 0.9 % Sodium Chloride 250 ML 166.67 MG IV ×2 (02:54→14:27)
[2024-09-17] MEDS: Omeprazole 20 MG CAPSULE.DR PO ×2 (06:14→17:28)
[2024-09-17] MEDS: methylPREDNISolone Sod Succ 40 MG/ML VIAL 80 MG IVPUSH ×3 (06:14→22:04)
[2024-09-17 06:54] LABS: Hematocrit 41.4 % (37.0-47.0); Hemoglobin 14.4 g/dl (12.0-16.0); Mean Corpuscular HGB Conc 34.8 g/dl (31.0-35.0); Mean Corpuscular Hemoglobin 29.6 pg (27.0-33.0); Mean Platelet Volume 11.1 fL (9.4-12.3); Platelet Count 370 X10*3/uL (160-400); Red Blood Count 4.87 X10*6/uL (4.20-5.50); Red Cell Distribution Width 13.3 % (11.0-16.0); White Blood Count 19.8 X10*3/uL (4.8-10.8)
[2024-09-17 07:08] LABS: Alanine Aminotransferase 84 U/L (0-31); Albumin Level 3.8 g/dL (3.5-5.0); Alkaline Phosphatase 61 U/L (39-117); Anion Gap 13 (12-20); Aspartate Amino Transferase 33 U/L (5-31); Bilirubin Total 0.8 mg/dL (0.0-1.0); Blood Urea Nitrogen 25 mg/dL (9-16); Calcium 9.3 mg/dL (8.4-10.2); Carbon Dioxide 28 mmol/L (22-29); Chloride 98 mmol/L (96-108); Creatinine Clr Calc Pharmacy 83.9; Estimated Glomerular Filt Rate > 60; Glucose Random 141 mg/dL (60-115); Potassium 4.1 mmol/L (3.3-5.1); Sodium 135 mmol/L (135-145); Total Protein 6.4 g/dL (6.5-8.0)
[2024-09-17 07:13] LABS: B Type Natriuretic Peptide 294 pg/mL (<100)
[2024-09-17] MEDS: levalbuterol HCL 1.25 MG/3 ML VIAL.NEB INHALE ×3 (08:22→19:59)
--- NOTE | 2024-09-17 09:10 | P.PNPL_ITS ---
Subjective Subjective Date of Service: 09/17/24 Principal diagnosis: respiratory failure, pneumonia, NSTEMI Interval history: The patient was seen on exam. Overall doing little better. Still on high-flow though. The patient is hemoptysis is settled. The blood looks darker than before. On exam she is still having wheezing but moving better air. Currently on high-dose steroids. She is tolerating the antibiotics. Objective Data Labs 09/17/24 06:06 09/17/24 06:06 Labs: Laboratory Results - last 24 hr 09/16/24 09/16/24 09/17/24 14:13 15:16 06:06 WBC 19.8 H RBC 4.87 Hgb 14.4 Hct 41.4 MCV 85.0 MCH 29.6 MCHC 34.8 RDW 13.3 Plt Count 370 MPV 11.1 Absolute Nucleated RBC 0.000 Nucleated RBC % (auto) 0.0 ESR 6 Sodium 135 Potassium 4.1 Chloride 98 Carbon Dioxide 28 Anion Gap 13 BUN 25 H Creatinine 0.70 Estim Creat Clear Calc 83.9 Estimated GFR > 60 Random Glucose 141 H Calcium 9.3 Total Bilirubin 0.8 AST 33 H ALT 84 H Alkaline Phosphatase 61 B-Natriuretic Peptide 294 H Total Protein 6.4 L Albumin 3.8 Nasal Screen MRSA (PCR) NEGATIVE Nasal S. aureus Screen NEGATIVE Nasal MRSA/S.aureus Interp SEE NOTE Microbiology Microbiology Results: Microbiology 09/10/24 14:21 Blood - Venous Blood Culture - Final No growth after 5 days. 09/10/24 14:21 Blood - Venous Blood Culture - Final No growth after 5 days. 09/10/24 Unknown Urine clean catch - Clean Catch Midstream Urine Culture - Final 09/12/24 05:23 Sputum - Expectorated Gram Stain - Final 09/12/24 05:23 Sputum - Expectorated Sputum Culture - Final Review of Systems Constitutional: Reports weakness Cardiovascular: Denies chest pain, Denies leg edema, Denies lightheadedness, Denies palpitations and Reports dyspnea Respiratory: Reports chest congestion, Reports cough, Reports hemoptysis and Reports dyspnea Genitourinary: Reports no additional female genitourinary complaints Reports system reviewed and no additional complaints, except as documented and Reports weakness Endocrine: Denies palpitations Physical Exam 2 Vital Signs: Vital Signs: Last Vital Signs Temp 97.4 F 09/17/24 07:11 Pulse 88 09/17/24 08:22 Resp 18 09/17/24 08:22 BP 129/65 09/17/24 07:11 Pulse Ox 92 09/17/24 07:11 O2 Del Method High Flow Nasal C annula 09/17/24 07:11 O2 Flow Rate 45 09/17/24 07:11 FiO2 49 09/17/24 07:11 Oxygen Flow Rate 3 09/10/24 13:57 BMI result Body Mass Index 31.7 Const: General: cooperative, alert, awake and in distress mild and respiratory Nutritional Appearance: average body habitus Orientation/consciousness: p atient oriented x3 Neck: Neck: Yes trachea midline, Yes supple and Yes no JVD Resp: Effort & Inspection: no respiratory distress Auscultation: wheezes Cardio: Rate: regular rate Rhythm: regular rhythm Heart sounds: S1 normal heart sound present and S2 normal heart sound present GI: Auscultation: normal bowel sounds Skin: General skin exam: no rashes or lesions noted Neuro: General: patient oriented x3 and no focal motor deficits Extrem: General: Yes no clubbing, cyanosis or edema Procedures Date of Service Date of Service: 09/17/24 Assessment and Plan Assessment and plan (1) COPD exacerbation: Status: Acute (2) Multifocal pneumonia: Status: Acute (3) Acute hypoxemic respiratory failure: Status: Acute (4) Hemoptysis: Status: Acute Plan continue Solumedrol MRSA screen negative continue Doxycycline continue CTX respiratory therapy holding Lovenox continue HF to Keep pox>90%, hopefully wean off in 24-48 hours Time Spent With Patient Time: Total time managing care of this patient today ____ minutes. Progress Note: Quality Stroke Does the patient have a stroke diagnosis?: No
[2024-09-17 09:29] LABS: Procalcitonin 0.03 ng/mL
[2024-09-17] MEDS: Furosemide 20 MG/2 ML VIAL IVPUSH ×2 (10:29→22:57)
[2024-09-17] MEDS: Nystatin Oral Susp 500,000 UNIT/5 ML ORAL.SUSP 500000 UNIT PO ×4 (10:29→19:47)
[2024-09-17] MEDS: Metoprolol Tartrate 12.5 MG HALFTAB PO ×2 (10:29→19:44)
[2024-09-17] MEDS: Aspirin 81 MG TAB.CHEW PO (10:29)
[2024-09-17] MEDS: Benzonatate 100 MG CAPSULE PO ×3 (10:29→19:43)
[2024-09-17] MEDS: 0.9 % Sodium Chloride Flush 3 ML SYRINGE IVFLUSH ×3 (10:29→23:00)
--- NOTE | 2024-09-17 10:34 | PM.PNCARD ---
Subjective Subjective Date of Service: 09/17/24 Principal diagnosis: respiratory failure, pneumonia, NSTEMI Interval history: Patient was diuresed about 1400 cc. She says she is feeling better although still requiring high flow oxygen therapy. Denies any palpitation. He had no overnight atrial fibrillation. Echocardiogram shows shows improved LV ejection fraction but persistent wall motion abnormality. No significant hemoptysis Review of Systems Constitutional: Reports weakness Cardiovascular: Denies chest pain, Denies leg edema, Denies lightheadedness, Denies Loss of Consciousness, Denies palpitations and Reports dyspnea on exertion Respiratory: Reports cough and Reports dyspnea on exertion Gastrointestinal: Reports no additional gastrointestinal complaints Reports weakness Endocrine: Denies palpitations Physical Exam Vital Signs: Last Vital Signs Temp 97.4 F 09/17/24 07:11 Pulse 88 09/17/24 08:22 Resp 18 09/17/24 08:22 BP 129/65 09/17/24 07:11 Pulse Ox 92 09/17/24 07:11 O2 Del Method High Flow Nasal Cannula 09/17/24 07:11 O2 Flow Rate 45 09/17/24 07:11 FiO2 49 09/17/24 07:11 Oxygen Flow Rate 3 09/10/24 13:57 BMI result Body Mass Index 31.7 Const General: cooperative, alert, awake and in distress mild and respiratory Nutritional Appearance: average body habitus Orientation/consciousness: patient oriented x3 Neck Neck: Yes trachea midline, Yes supple and Yes no JVD Resp Effort & Inspection: respiratory distress Auscultation: crackles and wheezes Cardio Rate: regular rate Rhythm: regular rhythm Heart sounds: S1 normal heart sound present, S2 normal heart sound present, no click, no gallops, no murmurs and no rubs GI Auscultation: normal bowel sounds Skin General skin exam: no rashes or lesions noted Neuro General: patient oriented x3 and no focal motor deficits Extrem General: Yes no clubbing, cyanosis or edema Objective Labs and Meds 09/17/24 06:06 09/17/24 06:06 Lab results: Laboratory Results - last 24 hr 09/16/24 09/16/24 09/17/24 14:13 15:16 06:06 WBC 19.8 H RBC 4.87 Hgb 14.4 Hct 41.4 MCV 85.0 MCH 29.6 MCHC 34.8 RDW 13.3 Plt Count 370 MPV 11.1 Absolute Nucleated RBC 0.000 Nucleated RBC % (auto) 0.0 ESR 6 Sodium 135 Potassium 4.1 Chloride 98 Carbon Dioxide 28 Anion Gap 13 BUN 25 H Creatinine 0.70 Estim Creat Clear Calc 83.9 Estimated GFR > 60 Random Glucose 141 H Calcium 9.3 Total Bilirubin 0.8 AST 33 H ALT 84 H Alkaline Phosphatase 61 B-Natriuretic Peptide 294 H Total Protein 6.4 L Albumin 3.8 Procalcitonin 0.03 Nasal Screen MRSA (PCR) NEGATIVE Nasal S. aureus Screen NEGATIVE Nasal MRSA/S.aureus Interp SEE NOTE Imaging Radiologist's impression: Impressions Chest X-Ray 09/16/24 14:00 IMPRESSION: Increased interstitial markings throughout both lungs without significant change. Electronically signed by: Adama Diez MD 09/16/2024 02:36 PM EDT RP Abdomen Ultrasound 09/16/24 17:22 IMPRESSION: The pancreas is not visualized. Further evaluation with contrast-enhanced CT of the abdomen and pelvis (with oral and IV contrast) is recommended to further evaluate the partially visualized possible abnormality noted on unenhanced CT. Electronically signed by: Adama Diez MD 09/17/2024 07:57 AM EDT RP Progress Note: A&P Assessment and plan (1) Acute hypoxemic respiratory failure: Status: Acute Assessment and Plan: Acute hypoxemic respiratory failure related to underlying significant COPD as well as multifocal pneumonia with a component of congestive heart failure. Clinically improved but still requiring high level of oxygen. Continue diuresis. Strict intake and output chart needs to be pursued. Continue monitor renal function as well as electrolytes and BNP. Continue oxygen supplementation therapy and management of pneumonia as well as COPD aggressively. Incentive spirometry should be considered. Gradually taper oxygen. (2) Non-ST elevation [place] (NSTEMI): Status: Acute Assessment and Plan: NSTEMI, question takotsubo cardiomyopathy question underlying coronary artery disease. Her LV ejection fraction with definitely improved but she continues to have persistent wall motion abnormality. High likelihood of underlying obstructive coronary artery disease. Once her respiratory status and oxygen requirement have improved will pursue cardiac catheterization to evaluate for coronary anatomy. Continue aspirin as well as high-intensity statin therapy. Continue metoprolol therapy. (3) PAF (paroxysmal atrial fibrillation): Status: Acute Assessment and Plan: Paroxysmal atrial fibrillation without recurrence. Most likely related to acute medical/respiratory issue. Continue metoprolol therapy. Continue manage her underlying condition. Avoid oral anticoagulation therapy at this point time. Will follow with you Time Spent With Patient Time: Total time managing care of this patient today ____ minutes. Progress Note: Quality Stroke Does the patient have a stroke diagnosis?: No Procedures Date of Service Date of Service: 09/17/24
[2024-09-17] MEDS: Valsartan 40 MG TABLET 20 MG PO ×2 (11:53→19:43)
[2024-09-17] MEDS: cefTRIAXone sodium 1 GM VIAL IVPUSH (14:28)
--- NOTE | 2024-09-17 15:38 | HO.PM.IMPN ---
Subjective Subjective Date of Service: 09/17/24 Interval History: breathing slightly improved but still on HFNC no fever hemoptysis resolving Review of Systems Review of Systems: Yes all other systems are reviewed and are negative Physical Exam Vital Signs: Vital Signs: Last Vital Signs Temp 97.1 F 09/17/24 11:25 Pulse 95 09/17/24 15:27 Resp 18 09/17/24 15:27 BP 118/66 09/17/24 11:25 Pulse Ox 95 09/17/24 11:25 O2 Del Method High Flow Nasal C annula 09/17/24 11:25 O2 Flow Rate 45 09/17/24 11:25 FiO2 45 09/17/24 11:25 Oxygen Flow Rate 3 09/10/24 13:57 BMI result Body Mass Index 31.7 Gen: in no acute distress HEENT: sclera anicteric, moist mucus membranes, oral thrush Neck: supple Lungs: diffuse insp crackles + exp wheezes Heart: regular rate and rhythm, no murmurs Abd: soft, non-tender, non-distended Ext: no edema Skin: warm/well-perfused Neuro: alert and oriented x3, no focal findings Psych: appropriate affect Objective Data Active Medications Acetaminophen (Acetaminophen 325 Mg Tablet) 650 mg PO Q6H PRN PRN Reason: Pain, Mild 1-3,fever,headache Last Admin: 09/15/24 20:47 Dose: 650 mg Documented By: KATELYN Albuterol/Ipratropium (Albuterol/Iprat 2.5/0.5mg 3 Ml Ampul.Neb) 3 ml INHALE Q4H PRN PRN Reason: Wheezing Last Admin: 09/11/24 05:55 Dose: 3 ml Documented By: VICKEY Aspirin (Aspirin 81 Mg Tab.Chew) 81 mg PO DAILY [facility] Last Admin: 09/17/24 10:29 Dose: 81 mg Documented By: MYKEL Benzonatate (Benzonatate 100 Mg Capsule) 100 mg PO TID [facility] Last Admin: 09/17/24 14:29 Dose: 100 mg Documented By: MYKEL Calcium Carbonate (Calcium Carbonate 750 Mg Tab.Chew) 750 mg PO Q4H PRN PRN Reason: Heartburn Ceftriaxone Sodium (Ceftriaxone Sodium 1 Gm Vial) 1 gm IVPUSH Q24H [facility] Last Admin: 09/17/24 14:28 Dose: 1 gm Documented By: MYKEL Docusate Sodium (Docusate Sodium 100 Mg Capsule) 100 mg PO BID PRN PRN Reason: Constipation Last Admin: 09/15/24 13:56 Dose: 100 mg Documented By: JAJA Furosemide (Furosemide 20 Mg/2 Ml Vial) 20 mg IVPUSH Q12H [facility]; Protocol Last Admin: 09/17/24 10:29 Dose: 20 mg Documented By: MYKEL Guaifenesin (Guaifenesin 200 Mg/10 Ml 10 Ml Liquid) 10 ml PO Q4H PRN PRN Reason: Cough Last Admin: 09/15/24 13:56 Dose: 10 ml Documented By: JAJA Guaifenesin (Guaifenesin 200 Mg/10 Ml 10 Ml Liquid) 10 ml PO Q4H PRN PRN Reason: Cough Doxycycline Hyclate 100 mg/ (Sodium Chloride) 250 mls @ 166.67 mls/hr IV Q12H [facility] Last Admin: 09/17/24 14:27 Dose: 166.67 mls/hr Documented By: MYKEL Levalbuterol HCl (Levalbuterol Hcl 1.25 Mg/3 Ml Vial.Neb) 1.25 mg INHALE RTID [facility] Last Admin: 09/17/24 15:15 Dose: 1.25 mg Documented By: NIDIA Magnesium Hydroxide (Milk Of Magnesia 30 Ml Oral.Susp) 30 ml PO DAILY PRN PRN Reason: Constipation Melatonin (Melatonin 3 Mg Tablet) 6 mg PO BEDTIME PRN PRN Reason: Insomnia Last Admin: 09/16/24 23:52 Dose: 6 mg Documented By: YULIYA Methylprednisolone Sodium Succinate (Methylprednisolone Sod Succ 40 Mg/Ml Vial) 80 mg IVPUSH Q8H [facility] Last Admin: 09/17/24 14:29 Dose: 80 mg Documented By: MYKEL Metoprolol Tartrate (Metoprolol Tartrate 12.5 Mg Halftab) 12.5 mg PO BID [facility]; Protocol Last Admin: 09/17/24 10:29 Dose: 12.5 mg Documented By: MYKEL Nystatin (Nystatin Oral Susp 500,000 Unit/5 Ml Oral.Susp) 500,000 unit PO QID [facility]; Protocol Last Admin: 09/17/24 14:27 Dose: 500,000 unit Documented By: MYKEL Omeprazole (Omeprazole 20 Mg Capsule.Dr) 20 mg PO BID@0630,1630 [facility] Last Admin: 09/17/24 06:14 Dose: 20 mg Documented By: YULIYA Sodium Chloride (0.9 % Sodium Chloride Flush 3 Ml Syringe) 3 ml IVFLUSH QSHIFT [facility] Last Admin: 09/17/24 14:29 Dose: 3 ml Documented By: MYKEL Valsartan (Valsartan 40 Mg Tablet) 20 mg PO BID [facility]; Protocol Last Admin: 09/17/24 11:53 Dose: 20 mg Documented By: MYKEL Labs 09/17/24 06:06 09/17/24 06:06 Labs: Laboratory Results - last 24 hr 09/16/24 09/17/24 15:16 06:06 MCV 85.0 MCH 29.6 MCHC 34.8 RDW 13.3 Plt Count 370 MPV 11.1 Absolute Nucleated RBC 0.000 Nucleated RBC % (auto) 0.0 Anion Gap 13 Estim Creat Clear Calc 83.9 Estimated GFR > 60 Random Glucose 141 H Calcium 9.3 Total Bilirubin 0.8 AST 33 H ALT 84 H Alkaline Phosphatase 61 B-Natriuretic Peptide 294 H Total Protein 6.4 L Albumin 3.8 Procalcitonin 0.03 Nasal Screen MRSA (PCR) NEGATIVE Nasal S. aureus Screen NEGATIVE Nasal MRSA/S.aureus Interp SEE NOTE Assessment and Plan (1) PAF (paroxysmal atrial fibrillation): Status: Acute (2) COPD exacerbation: Status: Acute (3) Multifocal pneumonia: Status: Acute Plan d8 for 63yo F with hx tobacco abuse, COPD not on home O2; admitted for hypoxia and sepsis due to multifocal PNA, complicated by takotsubo cardiomyopathy acute HFrEF/takotsubo cardiomyopathy - TTE 09/10/24: - Normal left ventricular cavity size. There is normal left ventricular wall thickness. The left ventricular systolic function is moderate to severely decreased. The visually estimated ejection fraction is between 25-30%. - The entire apex, the mid anterior, mid inferior, mid anterolateral, mid inferoseptal, mid anteroseptal, and mid inferolateral segments are akinetic. - Takotsubo cardiomyopathy vs multivessel disease. - repeat TTE 09/16/24: - Mildly reduced LV ejection fraction of 45-50% with persistent wall motion abnormality - Cardiology following; given persistent WMAs will need cardic cath once oxygen requirement improves - negative 2.4L cumulatively thus far; continue diuresis and monitor BMP/Mg/BNP, I/O, wts - start valsartan NSTEMI - troponins flat but >3000; EKG with precordial TWIs; heparin drip completed x 48hr; plan cardiac cath as above - ASA, atorvastatin, metoprolol tartrate paroxysmal AF - brief episode 09/13/24; given amiodarone; pt went back into NSR; AF has not recurred - did not tolerate anticoagulation with enoxaparin- developed hemoptysis - continue metoprolol tartrate multifocal PNA with sepsis - continue ceftriaxone 09/10-, doxycycline 09/16-, azithromycin completed 09/10-09/16, BCx negative, PCT low, MRSA neg, urinary antigens for Legionella and pneumococcus negative COPD exacerbation - triggered by human metapneumovirus infection; continue steroids, nebs acute hypoxic respiratory failure - supplemental O2, wean as tolerated; currently on 45% fiO2 at 45 Lpm; treat above causes thrush - oral nystatin possible RUQ mass - incidentally noted on noncontrast CT of chest; could be volume averaging artifact; abd US without concerns; discussed with GI; plan CT A/P with contrast once respiratory status improves VTE ppx - SCDs; no heparinoids given hemoptysis dispo - TBD In my clinical judgment, the patient requires continued inpatient hospitalization for the following reasons: hypoxia Total time managing care of this patient today: 55 minutes. Quality Stroke Does the patient have a stroke diagnosis?: No VTE Prior VTE?: No VTE Risk Level:: Medical - moderate - high VTE Device Contraindication: Treatment Not Indicated VTE Drug Contraindication: N/A - Med Ordered
[2024-09-17] MEDS: Atorvastatin Calcium 80 MG TABLET PO (19:43)
[2024-09-17 22:29] LABS: Myeloperoxidase Antibody <1.0 AI; Proteinase 3 PR3 Antibodies <1.0 AI
[2024-09-17] MEDS: guaiFENesin 200 MG/10 ML 10 ML LIQUID PO (23:01)
[2024-09-17] MEDS: Albuterol/Iprat 2.5/0.5MG 3 ML AMPUL.NEB INHALE (23:01)
[2024-09-17] MEDS: Melatonin 3 MG TABLET 6 MG PO (23:32)
[2024-09-18] VITALS (14 sets, daily range): BP systolic 105–136; BP diastolic 57–97; PULSE 67–87; RESP 15–20; TEMP 36.3–37.1; O2SAT 92–97
[2024-09-18] MEDS: Doxycycline Hyclate 100 MG in 0.9 % Sodium Chloride 250 ML 166.67 MG IV ×2 (02:52→15:04)
[2024-09-18] MEDS: Omeprazole 20 MG CAPSULE.DR PO ×2 (05:54→15:04)
[2024-09-18] MEDS: methylPREDNISolone Sod Succ 40 MG/ML VIAL 80 MG IVPUSH ×3 (05:54→21:15)
[2024-09-18 06:38] LABS: Cyclic Citrullinated Peptide <16 UNITS
[2024-09-18 06:40] LABS: Hematocrit 39.8 % (37.0-47.0); Hemoglobin 14.1 g/dl (12.0-16.0); Mean Corpuscular HGB Conc 35.4 g/dl (31.0-35.0); Mean Corpuscular Volume 84.7 fL (80.0-98.0); Mean Platelet Volume 11.2 fL (9.4-12.3); Platelet Count 394 X10*3/uL (160-400); Red Cell Distribution Width 13.3 % (11.0-16.0); White Blood Count 26.5 X10*3/uL (4.8-10.8)
[2024-09-18 06:57] LABS: Anion Gap 15 (12-20); Blood Urea Nitrogen 30 mg/dL (9-16); Carbon Dioxide 26 mmol/L (22-29); Chloride 96 mmol/L (96-108); Creatinine Clr Calc Pharmacy 80.5; Estimated Glomerular Filt Rate > 60; Glucose Random 151 mg/dL (60-115); Magnesium 2.2 mg/dL (1.6-2.6); Potassium 3.6 mmol/L (3.3-5.1); Sodium 133 mmol/L (135-145)
[2024-09-18 06:59] LABS: B Type Natriuretic Peptide 147 pg/mL (<100)
[2024-09-18] MEDS: Metoprolol Tartrate 12.5 MG HALFTAB PO ×2 (07:31→20:04)
[2024-09-18] MEDS: Nystatin Oral Susp 500,000 UNIT/5 ML ORAL.SUSP 500000 UNIT PO ×4 (07:31→20:08)
[2024-09-18] MEDS: Valsartan 40 MG TABLET 20 MG PO ×2 (07:31→20:04)
[2024-09-18] MEDS: Aspirin 81 MG TAB.CHEW PO (07:31)
[2024-09-18] MEDS: Benzonatate 100 MG CAPSULE PO ×3 (07:32→20:04)
[2024-09-18] MEDS: 0.9 % Sodium Chloride Flush 3 ML SYRINGE IVFLUSH ×3 (07:32→21:16)
[2024-09-18] MEDS: levalbuterol HCL 1.25 MG/3 ML VIAL.NEB INHALE ×3 (08:19→20:25)
--- NOTE | 2024-09-18 09:15 | P.PNPL_ITS ---
Subjective Subjective Date of Service: 09/18/24 Principal diagnosis: respiratory failure, pneumonia, NSTEMI Interval history: The patient seen on exam. Still on high-flow. Actually her requirements increased overnight. Seems to be comfortable today. She does have still some wheezing. No further hemoptysis. She continues on diuresis for her congestive heart failure as well. Continues on antibiotics for the lower respiratory infection. Will try to wean her off completely of the high-flow. It may be that she is having some issues with orthopnea or PND at nighttime or she could have some degree of sleep apnea requiring additional support at nighttime. Objective Data Labs 09/18/24 06:05 09/18/24 06:05 Labs: Laboratory Results - last 24 hr 09/16/24 09/16/24 09/17/24 14:13 14:14 06:06 WBC RBC Hgb Hct MCV MCH MCHC RDW Plt Count MPV Absolute Nucleated RBC Nucleated RBC % (auto) Sodium Potassium Chloride Carbon Dioxide Anion Gap BUN Creatinine Estim Creat Clear Calc Estimated GFR Random Glucose Calcium Magnesium B-Natriuretic Peptide Procalcitonin 0.03 Cycl Citrul Peptide IgG <16 Proteinase 3 (PR3) Ab <1.0 Myeloperoxidase Ab <1.0 09/18/24 06:05 WBC 26.5 H RBC 4.70 Hgb 14.1 Hct 39.8 MCV 84.7 MCH 30.0 MCHC 35.4 H RDW 13.3 Plt Count 394 MPV 11.2 Absolute Nucleated RBC 0.000 Nucleated RBC % (auto) 0.0 Sodium 133 L Potassium 3.6 Chloride 96 Carbon Dioxide 26 Anion Gap 15 BUN 30 H Creatinine 0.73 Estim Creat Clear Calc 80.5 Estimated GFR > 60 Random Glucose 151 H Calcium 9.0 Magnesium 2.2 B-Natriuretic Peptide 147 H Procalcitonin Cycl Citrul Peptide IgG Proteinase 3 (PR3) Ab Myeloperoxidase Ab Microbiology Microbiology Results: Microbiology 09/10/24 14:21 Blood - Venous Blood Culture - Final No growth after 5 days. 09/10/24 14:21 Blood - Venous Blood Culture - Final No growth after 5 days. 09/10/24 Unknown Urine clean catch - Clean Catch Midstream Urine Culture - Final 09/12/24 05:23 Sputum - Expectorated Gram Stain - Final 09/12/24 05:23 Sputum - Expectorated Sputum Culture - Final Review of Systems Constitutional: Reports weakness Cardiovascular: Denies chest pain, Denies leg edema, Denies lightheadedness, Denies palpitations and Reports dyspnea Respiratory: Reports chest congestion, Reports cough, Reports hemoptysis and Reports dyspnea Genitourinary: Reports no additional female genitourinary complaints Reports system reviewed and no additional complaints, except as documented and Reports weakness Endocrine: Denies palpitations Physical Exam 2 Vital Signs: Vital Signs: Last Vital Signs Temp 98.6 F 09/18/24 07:18 Pulse 77 09/18/24 08:20 Resp 18 09/18/24 08:21 BP 133/63 09/18/24 07:31 Pulse Ox 93 09/18/24 07:18 O2 Del Method High Flow Nasal C annula 09/18/24 07:18 O2 Flow Rate 45 09/18/24 07:18 FiO2 60 09/18/24 07:18 Oxygen Flow Rate 3 09/10/24 13:57 BMI result Body Mass Index 31.7 Const: General: cooperative, alert, awake and in distress mild and respiratory Nutritional Appearance: average body habitus Orientation/consciousness: p atient oriented x3 Neck: Neck: Yes trachea midline, Yes supple and Yes no JVD Resp: Effort & Inspection: no respiratory distress Auscultation: wheezes Cardio: Rate: regular rate Rhythm: regular rhythm Heart sounds: S1 normal heart sound present and S2 normal heart sound present GI: Auscultation: normal bowel sounds Skin: General skin exam: no rashes or lesions noted Neuro: General: patient oriented x3 and no focal motor deficits Extrem: General: Yes no clubbing, cyanosis or edema Procedures Date of Service Date of Service: 09/18/24 Assessment and Plan Assessment and plan (1) COPD exacerbation: Status: Acute (2) Multifocal pneumonia: Status: Acute (3) Acute hypoxemic respiratory failure: Status: Acute (4) Hemoptysis: Status: Acute Plan continue Solumedrol, start weaning down MRSA screen negative continue Doxycycline x 8 days continue CTX total 8 days respiratory therapy diuresis as tolerated CXR today continue HF to Keep pox>88%, hopefully wean off HF to ventimask Time Spent With Patient Time: Total time managing care of this patient today ____ minutes. Progress Note: Quality Stroke Does the patient have a stroke diagnosis?: No
[2024-09-18] MEDS: Furosemide 20 MG/2 ML VIAL IVPUSH ×2 (10:38→21:18)
--- NOTE | 2024-09-18 11:22 | HO.PM.IMPN ---
Subjective Subjective Date of Service: 09/18/24 Interval History: overnight became more hypoxic but overall feels much better; wheezing improved; no further hemoptysis Review of Systems Review of Systems: Yes all other systems are reviewed and are negative Physical Exam Vital Signs: Vital Signs: Last Vital Signs Temp 98.6 F 09/18/24 07:18 Pulse 77 09/18/24 08:20 Resp 18 09/18/24 08:21 BP 133/63 09/18/24 10:38 Pulse Ox 93 09/18/24 07:18 O2 Del Method High Flow Nasal C annula 09/18/24 07:18 O2 Flow Rate 45 09/18/24 07:18 FiO2 60 09/18/24 07:18 Oxygen Flow Rate 3 09/10/24 13:57 BMI result Body Mass Index 31.7 Gen: in no acute distress HEENT: sclera anicteric, moist mucus membranes, oral thrush Neck: supple Lungs: a few expiratory wheezes Heart: regular rate and rhythm, no murmurs Abd: soft, non-tender, non-distended Ext: no edema Skin: warm/well-perfused Neuro: alert and oriented x3, no focal findings Psych: appropriate affect Objective Data Active Medications Acetaminophen (Acetaminophen 325 Mg Tablet) 650 mg PO Q6H PRN PRN Reason: Pain, Mild 1-3,fever,headache Last Admin: 09/15/24 20:47 Dose: 650 mg Documented By: KATELYN Albuterol/Ipratropium (Albuterol/Iprat 2.5/0.5mg 3 Ml Ampul.Neb) 3 ml INHALE Q4H PRN PRN Reason: Wheezing Last Admin: 09/17/24 23:01 Dose: 3 ml Documented By: WELLINGTON Aspirin (Aspirin 81 Mg Tab.Chew) 81 mg PO DAILY [facility] Last Admin: 09/18/24 07:31 Dose: 81 mg Documented By: ANSON Atorvastatin Calcium (Atorvastatin Calcium 80 Mg Tablet) 80 mg PO BEDTIME [facility] Last Admin: 09/17/24 19:43 Dose: 80 mg Documented By: PABLO Benzonatate (Benzonatate 100 Mg Capsule) 100 mg PO TID [facility] Last Admin: 09/18/24 07:32 Dose: 100 mg Documented By: ANSON Calcium Carbonate (Calcium Carbonate 750 Mg Tab.Chew) 750 mg PO Q4H PRN PRN Reason: Heartburn Ceftriaxone Sodium (Ceftriaxone Sodium 1 Gm Vial) 1 gm IVPUSH Q24H [facility] Last Admin: 09/17/24 14:28 Dose: 1 gm Documented By: MYKEL Docusate Sodium (Docusate Sodium 100 Mg Capsule) 100 mg PO BID PRN PRN Reason: Constipation Last Admin: 09/15/24 13:56 Dose: 100 mg Documented By: RIOSCSALENA Furosemide (Furosemide 20 Mg/2 Ml Vial) 20 mg IVPUSH Q12H [facility]; Protocol Last Admin: 09/18/24 10:38 Dose: 20 mg Documented By: ANSON Guaifenesin (Guaifenesin 200 Mg/10 Ml 10 Ml Liquid) 10 ml PO Q4H PRN PRN Reason: Cough Last Admin: 09/17/24 23:01 Dose: 10 ml Documented By: PABLO Guaifenesin (Guaifenesin 200 Mg/10 Ml 10 Ml Liquid) 10 ml PO Q4H PRN PRN Reason: Cough Doxycycline Hyclate 100 mg/ (Sodium Chloride) 250 mls @ 166.67 mls/hr IV Q12H [facility] Last Infusion: 09/18/24 05:08 Dose: Infused Documented By: PABLO Levalbuterol HCl (Levalbuterol Hcl 1.25 Mg/3 Ml Vial.Neb) 1.25 mg INHALE RTID [facility] Last Admin: 09/18/24 08:19 Dose: 1.25 mg Documented By: PHONG Magnesium Hydroxide (Milk Of Magnesia 30 Ml Oral.Susp) 30 ml PO DAILY PRN PRN Reason: Constipation Melatonin (Melatonin 3 Mg Tablet) 6 mg PO BEDTIME PRN PRN Reason: Insomnia Last Admin: 09/17/24 23:32 Dose: 6 mg Documented By: PABLO Methylprednisolone Sodium Succinate (Methylprednisolone Sod Succ 40 Mg/Ml Vial) 80 mg IVPUSH Q8H [facility] Last Admin: 09/18/24 05:54 Dose: 80 mg Documented By: PABLO Metoprolol Tartrate (Metoprolol Tartrate 12.5 Mg Halftab) 12.5 mg PO BID [facility]; Protocol Last Admin: 09/18/24 07:31 Dose: 12.5 mg Documented By: ANSON Nystatin (Nystatin Oral Susp 500,000 Unit/5 Ml Oral.Susp) 500,000 unit PO QID [facility]; Protocol Last Admin: 09/18/24 07:31 Dose: 500,000 unit Documented By: ANSON Omeprazole (Omeprazole 20 Mg Capsule.) 20 mg PO BID@0630,1630 [facility] Last Admin: 09/18/24 05:54 Dose: 20 mg Documented By: PABLO Sodium Chloride (0.9 % Sodium Chloride Flush 3 Ml Syringe) 3 ml IVFLUSH QSHIFT [facility] Last Admin: 09/18/24 07:32 Dose: 3 ml Documented By: ANSON Valsartan (Valsartan 40 Mg Tablet) 20 mg PO BID [facility]; Protocol Last Admin: 09/18/24 07:31 Dose: 20 mg Documented By: ANSON Labs 09/18/24 06:05 09/18/24 06:05 Labs: Laboratory Results - last 24 hr 09/16/24 09/16/24 09/18/24 14:13 14:14 06:05 MCV 84.7 MCH 30.0 MCHC 35.4 H RDW 13.3 Plt Count 394 MPV 11.2 Absolute Nucleated RBC 0.000 Nucleated RBC % (auto) 0.0 Anion Gap 15 Estim Creat Clear Calc 80.5 Estimated GFR > 60 Random Glucose 151 H Calcium 9.0 Magnesium 2.2 B-Natriuretic Peptide 147 H Cycl Citrul Peptide IgG <16 Proteinase 3 (PR3) Ab <1.0 Myeloperoxidase Ab <1.0 Assessment and Plan (1) PAF (paroxysmal atrial fibrillation): Status: Acute (2) COPD exacerbation: Status: Acute (3) Multifocal pneumonia: Status: Acute Plan 98 for 63yo F with hx tobacco abuse, COPD not on home O2; admitted for hypoxia and sepsis due to multifocal PNA, complicated by takotsubo cardiomyopathy acute HFrEF/takotsubo cardiomyopathy - TTE 09/10/24: - Normal left ventricular cavity size. There is normal left ventricular wall thickness. The left ventricular systolic function is moderate to severely decreased. The visually estimated ejection fraction is between 25-30%. - The entire apex, the mid anterior, mid inferior, mid anterolateral, mid inferoseptal, mid anteroseptal, and mid inferolateral segments are akinetic. - Takotsubo cardiomyopathy vs multivessel disease. - repeat TTE 09/16/24: - Mildly reduced LV ejection fraction of 45-50% with persistent wall motion abnormality - Cardiology following; given persistent WMAs will need cardic cath once oxygen requirement improves - negative 2.7L cumulatively thus far; continue diuresis and monitor BMP/Mg/BNP, I/O, wts - started valsartan NSTEMI - troponins flat but >3000; EKG with precordial TWIs; heparin drip completed x 48hr; plan cardiac cath as above - ASA, atorvastatin, metoprolol tartrate paroxysmal AF - brief episode 09/13/24; given amiodarone; pt went back into NSR; AF has not recurred - did not tolerate anticoagulation with enoxaparin- developed hemoptysis - continue metoprolol tartrate multifocal PNA with sepsis - continue ceftriaxone 09/10-09/18, doxycycline 09/16-09/24, azithromycin completed 09/10-09/16, BCx negative, PCT low, MRSA neg, urinary antigens for Legionella and pneumococcus negative COPD exacerbation - triggered by human metapneumovirus infection; continue steroids, nebs acute hypoxic respiratory failure - try to wean off HFNC today to Venti mask thrush - oral nystatin possible RUQ mass - incidentally noted on noncontrast CT of chest; could be volume averaging artifact; abd US without concerns; discussed with GI; plan CT A/P with contrast once respiratory status improves VTE ppx - SCDs; no heparinoids given hemoptysis dispo - TBD; PT eval once off of HFNC In my clinical judgment, the patient requires continued inpatient hospitalization for the following reasons: hypoxia Total time managing care of this patient today: 50 minutes. Quality Stroke Does the patient have a stroke diagnosis?: No VTE Prior VTE?: No VTE Risk Level:: Medical - moderate - high VTE Device Contraindication: Treatment Not Indicated VTE Drug Contraindication: N/A - Med Ordered
--- NOTE | 2024-09-18 11:48 | PM.PNCARD ---
Subjective Subjective Date of Service: 09/18/24 Principal diagnosis: respiratory failure, pneumonia, NSTEMI Interval history: Anival continues to have high oxygen requirement. Currently diagnose with RSV. Being followed by Pulmonary. She has not had any significant hemoptysis. Denies any chest pain. No significant leg edema. Review of Systems Constitutional: Reports lethargy and Reports weakness Cardiovascular: Denies chest pain, Denies lightheadedness, Denies Loss of Consciousness, Denies palpitations and Reports dyspnea Respiratory: Reports dyspnea Genitourinary: Reports no additional female genitourinary complaints Musculoskeletal: Reports no additional musculoskeletal complaints Reports weakness Endocrine: Denies palpitations Physical Exam Vital Signs: Last Vital Signs Temp 97.7 F 09/18/24 11:36 Pulse 83 09/18/24 11:36 Resp 15 09/18/24 11:36 BP 105/60 09/18/24 11:36 Pulse Ox 96 09/18/24 11:36 O2 Del Method High Flow Nasal Cannula 09/18/24 11:36 O2 Flow Rate 45 09/18/24 11:36 FiO2 60 09/18/24 11:36 Oxygen Flow Rate 3 09/10/24 13:57 BMI result Body Mass Index 31.7 Const General: cooperative, alert, awake and in distress mild and respiratory Nutritional Appearance: average body habitus Orientation/consciousness: patient oriented x3 Neck Neck: Yes trachea midline, Yes supple and Yes no JVD Resp Effort & Inspection: respiratory distress Auscultation: crackles and wheezes Cardio Rate: regular rate Rhythm: regular rhythm Heart sounds: S1 normal heart sound present, S2 normal heart sound present, no click, no gallops, no murmurs and no rubs GI Auscultation: normal bowel sounds Skin General skin exam: no rashes or lesions noted Neuro General: patient oriented x3 and no focal motor deficits Extrem General: Yes no clubbing, cyanosis or edema Objective Labs and Meds 09/18/24 06:05 09/18/24 06:05 Lab results: Laboratory Results - last 24 hr 09/16/24 09/16/24 09/18/24 14:13 14:14 06:05 WBC 26.5 H RBC 4.70 Hgb 14.1 Hct 39.8 MCV 84.7 MCH 30.0 MCHC 35.4 H RDW 13.3 Plt Count 394 MPV 11.2 Absolute Nucleated RBC 0.000 Nucleated RBC % (auto) 0.0 Sodium 133 L Potassium 3.6 Chloride 96 Carbon Dioxide 26 Anion Gap 15 BUN 30 H Creatinine 0.73 Estim Creat Clear Calc 80.5 Estimated GFR > 60 Random Glucose 151 H Calcium 9.0 Magnesium 2.2 B-Natriuretic Peptide 147 H Cycl Citrul Peptide IgG <16 Proteinase 3 (PR3) Ab <1.0 Myeloperoxidase Ab <1.0 Imaging Radiologist's impression: Impressions Chest X-Ray 09/18/24 09:40 IMPRESSION: Increased interstitial markings in the lower lung zones. Subsegmental atelectasis at the left lung base. Electronically signed by: Adama Diez MD 09/18/2024 10:03 AM EDT RP Progress Note: A&P Assessment and plan (1) Acute hypoxemic respiratory failure: Status: Acute Assessment and Plan: Acute hypoxemic respiratory failure in his elderly woman with significant COPD with now RSV positive. Question continued significant pulmonary parenchymal inflammation causing her to be hypoxemic and requiring high flow oxygen. She has been diuresed although her output has going to stagger off. Clinically does not appear to be in significant heart failure at this point in time. Continue gentle diuresis. Strict intake and output chart needs to be pursued. Continue metoprolol and valsartan therapy. (2) PAF (paroxysmal atrial fibrillation): Status: Acute Assessment and Plan: Paroxysmal atrial fibrillation has remained suppressed. Continue metoprolol therapy. Hold off on oral anticoagulation therapy due to inflammation in his lungs with recent hemoptysis. (3) Non-ST elevation [place] (NSTEMI): Status: Acute Assessment and Plan: NSTEMI. Continue low-dose aspirin high-intensity statin therapy. Continue metoprolol and valsartan. Will need ischemic workup at some point in time to evaluate for significant obstructive coronary artery disease. This will happen once her hypoxemia improved significantly. Will follow with you Time Spent With Patient Time: Total time managing care of this patient today ____ minutes. Progress Note: Quality Stroke Does the patient have a stroke diagnosis?: No Procedures Date of Service Date of Service: 09/18/24
[2024-09-18] MEDS: cefTRIAXone sodium 1 GM VIAL IVPUSH (15:04)
[2024-09-18] MEDS: guaiFENesin 200 MG/10 ML 10 ML LIQUID PO (15:05)
--- NOTE | 2024-09-18 15:32 | MHC.CM.PN ---
Per rounds, pt. is still on highflow supplemental O2, she is improving, will have PT eval to help determine DCP. CM to follow for DC needs.
[2024-09-18] MEDS: Atorvastatin Calcium 80 MG TABLET PO (20:04)
[2024-09-19] VITALS (10 sets, daily range): BP systolic 103–128; BP diastolic 51–61; PULSE 64–85; RESP 16–18; TEMP 36.1–36.9; O2SAT 91–96
[2024-09-19] MEDS: Melatonin 3 MG TABLET 6 MG PO ×2 (00:08→22:56)
[2024-09-19] MEDS: Doxycycline Hyclate 100 MG in 0.9 % Sodium Chloride 250 ML 166.67 MG IV (02:52)
[2024-09-19] MEDS: Omeprazole 20 MG CAPSULE.DR PO ×2 (06:13→16:04)
[2024-09-19] MEDS: methylPREDNISolone Sod Succ 40 MG/ML VIAL 80 MG IVPUSH (06:13)
[2024-09-19 06:31] LABS: Hematocrit 38.7 % (37.0-47.0); Hemoglobin 13.5 g/dl (12.0-16.0); Mean Corpuscular HGB Conc 34.9 g/dl (31.0-35.0); Mean Corpuscular Hemoglobin 29.5 pg (27.0-33.0); Mean Corpuscular Volume 84.7 fL (80.0-98.0); Mean Platelet Volume 11.2 fL (9.4-12.3); Platelet Count 401 X10*3/uL (160-400); Red Blood Count 4.57 X10*6/uL (4.20-5.50); Red Cell Distribution Width 13.4 % (11.0-16.0); White Blood Count 23.6 X10*3/uL (4.8-10.8)
[2024-09-19 06:50] LABS: Alanine Aminotransferase 47 U/L (0-31); Albumin Level 3.6 g/dL (3.5-5.0); Alkaline Phosphatase 61 U/L (39-117); Anion Gap 12 (12-20); Aspartate Amino Transferase 17 U/L (5-31); Bilirubin Total 0.9 mg/dL (0.0-1.0); Blood Urea Nitrogen 33 mg/dL (9-16); Calcium 9.1 mg/dL (8.4-10.2); Carbon Dioxide 28 mmol/L (22-29); Chloride 96 mmol/L (96-108); Creatinine Clr Calc Pharmacy 86.4; Estimated Glomerular Filt Rate > 60; Glucose Random 150 mg/dL (60-115); Sodium 132 mmol/L (135-145); Total Protein 5.9 g/dL (6.5-8.0)
[2024-09-19 06:52] LABS: B Type Natriuretic Peptide 95 pg/mL (<100)
[2024-09-19] MEDS: Benzonatate 100 MG CAPSULE PO ×3 (07:27→21:09)
[2024-09-19] MEDS: Aspirin 81 MG TAB.CHEW PO (07:27)
[2024-09-19] MEDS: Nystatin Oral Susp 500,000 UNIT/5 ML ORAL.SUSP 500000 UNIT PO ×4 (07:27→21:09)
[2024-09-19] MEDS: 0.9 % Sodium Chloride Flush 3 ML SYRINGE IVFLUSH ×2 (07:27→16:04)
[2024-09-19] MEDS: Metoprolol Tartrate 12.5 MG HALFTAB PO ×2 (07:27→21:09)
[2024-09-19] MEDS: Valsartan 40 MG TABLET 20 MG PO ×2 (07:28→21:08)
[2024-09-19] MEDS: guaiFENesin 200 MG/10 ML 10 ML LIQUID PO ×2 (07:28→16:04)
[2024-09-19] MEDS: methylPREDNISolone Sod Succ 40 MG/ML VIAL IVPUSH ×2 (08:05→20:13)
[2024-09-19] MEDS: Furosemide 20 MG TABLET PO ×2 (08:06→17:39)
[2024-09-19] MEDS: levalbuterol HCL 1.25 MG/3 ML VIAL.NEB INHALE ×3 (08:30→19:17)
[2024-09-19] MEDS: iohexoL 350 MG/ML 100 ML INFUS..BTL IV (09:29)
--- NOTE | 2024-09-19 11:11 | HO.PM.IMPN ---
Subjective Subjective Date of Service: 09/19/24 Interval History: weaned from HFNC to Oxymask to NC breathing improved thrush resolved Review of Systems Review of Systems: Yes all other systems are reviewed and are negative Physical Exam Vital Signs: Vital Signs: Last Vital Signs Temp 97.2 F 09/19/24 07:50 Pulse 75 09/19/24 08:31 Resp 18 09/19/24 08:31 BP 120/61 09/19/24 07:50 Pulse Ox 92 09/19/24 07:50 O2 Del Method Room Air 09/19/24 07:50 O2 Flow Rate 5 09/19/24 02:51 FiO2 60 09/18/24 11:36 Oxygen Flow Rate 3 09/10/24 13:57 BMI result Body Mass Index 31.7 Gen: in no acute distress HEENT: sclera anicteric, moist mucus membranes Neck: supple Lungs: diminished Heart: regular rate and rhythm, no murmurs Abd: soft, non-tender, non-distended Ext: no edema Skin: warm/well-perfused Neuro: alert and oriented x3, no focal findings Psych: appropriate affect Objective Data Active Medications Acetaminophen (Acetaminophen 325 Mg Tablet) 650 mg PO Q6H PRN PRN Reason: Pain, Mild 1-3,fever,headache Last Admin: 09/15/24 20:47 Dose: 650 mg Documented By: KATELYN Albuterol/Ipratropium (Albuterol/Iprat 2.5/0.5mg 3 Ml Ampul.Neb) 3 ml INHALE Q4H PRN PRN Reason: Wheezing Last Admin: 09/17/24 23:01 Dose: 3 ml Documented By: WELLINGTON Aspirin (Aspirin 81 Mg Tab.Chew) 81 mg PO DAILY [facility] Last Admin: 09/19/24 07:27 Dose: 81 mg Documented By: ANSON Atorvastatin Calcium (Atorvastatin Calcium 80 Mg Tablet) 80 mg PO BEDTIME [facility] Last Admin: 09/18/24 20:04 Dose: 80 mg Documented By: PABLO Benzonatate (Benzonatate 100 Mg Capsule) 100 mg PO TID [facility] Last Admin: 09/19/24 07:27 Dose: 100 mg Documented By: ANSON Calcium Carbonate (Calcium Carbonate 750 Mg Tab.Chew) 750 mg PO Q4H PRN PRN Reason: Heartburn Ceftriaxone Sodium (Ceftriaxone Sodium 1 Gm Vial) 1 gm IVPUSH Q24H [facility] Stop: 09/19/24 15:00 Last Admin: 09/18/24 15:04 Dose: 1 gm Documented By: ANSON Docusate Sodium (Docusate Sodium 100 Mg Capsule) 100 mg PO BID PRN PRN Reason: Constipation Last Admin: 09/15/24 13:56 Dose: 100 mg Documented By: RIOSCEL Doxycycline Monohydrate (Doxycycline Monohydrate 100 Mg Capsule) 100 mg PO Q12H DIONNE Furosemide (Furosemide 20 Mg Tablet) 20 mg PO BID@0900,1800 [facility]; Protocol Last Admin: 09/19/24 08:06 Dose: 20 mg Documented By: ANSON Guaifenesin (Guaifenesin 200 Mg/10 Ml 10 Ml Liquid) 10 ml PO Q4H PRN PRN Reason: Cough Last Admin: 09/19/24 07:28 Dose: 10 ml Documented By: ANSON Guaifenesin (Guaifenesin 200 Mg/10 Ml 10 Ml Liquid) 10 ml PO Q4H PRN PRN Reason: Cough Levalbuterol HCl (Levalbuterol Hcl 1.25 Mg/3 Ml Vial.Neb) 1.25 mg INHALE RTID [facility] Last Admin: 09/19/24 08:30 Dose: 1.25 mg Documented By: PHONG Magnesium Hydroxide (Milk Of Magnesia 30 Ml Oral.Susp) 30 ml PO DAILY PRN PRN Reason: Constipation Melatonin (Melatonin 3 Mg Tablet) 6 mg PO BEDTIME PRN PRN Reason: Insomnia Last Admin: 09/19/24 00:08 Dose: 6 mg Documented By: PABLO Methylprednisolone Sodium Succinate (Methylprednisolone Sod Succ 40 Mg/Ml Vial) 40 mg IVPUSH Q12H [facility] Last Admin: 09/19/24 08:05 Dose: 40 mg Documented By: ANSON Metoprolol Tartrate (Metoprolol Tartrate 12.5 Mg Halftab) 12.5 mg PO BID [facility]; Protocol Last Admin: 09/19/24 07:27 Dose: 12.5 mg Documented By: ANSON Nystatin (Nystatin Oral Susp 500,000 Unit/5 Ml Oral.Susp) 500,000 unit PO QID [facility]; Protocol Last Admin: 09/19/24 07:27 Dose: 500,000 unit Documented By: ANSON Omeprazole (Omeprazole 20 Mg Capsule.) 20 mg PO BID@0630,1630 [facility] Last Admin: 09/19/24 06:13 Dose: 20 mg Documented By: PABLO Sodium Chloride (0.9 % Sodium Chloride Flush 3 Ml Syringe) 3 ml IVFLUSH QSHIFT [facility] Last Admin: 09/19/24 07:27 Dose: 3 ml Documented By: ANSON Valsartan (Valsartan 40 Mg Tablet) 20 mg PO BID [facility]; Protocol Last Admin: 09/19/24 07:28 Dose: 20 mg Documented By: ANSON Labs 09/19/24 06:12 09/19/24 06:12 Labs: Laboratory Results - last 24 hr 09/19/24 06:12 MCV 84.7 MCH 29.5 MCHC 34.9 RDW 13.4 Plt Count 401 H MPV 11.2 Absolute Nucleated RBC 0.000 Nucleated RBC % (auto) 0.0 Anion Gap 12 Estim Creat Clear Calc 86.4 Estimated GFR > 60 Random Glucose 150 H Calcium 9.1 Total Bilirubin 0.9 AST 17 ALT 47 H Alkaline Phosphatase 61 B-Natriuretic Peptide 95 Total Protein 5.9 L Albumin 3.6 Impressions Abdomen/Pelvis CT 09/19/24 08:57 IMPRESSION: 1. No evidence of an upper abdominal mass. The abnormality noted on chest CT likely represented volume averaging with the gastric body. 2. 9 mm left adrenal adenoma. 3. Moderate amount of stool throughout the colon. Electronically signed by: Adama Diez MD 09/19/2024 09:46 AM EDT Assessment and Plan (1) PAF (paroxysmal atrial fibrillation): Status: Acute (2) COPD exacerbation: Status: Acute (3) Multifocal pneumonia: Status: Acute Plan d10 for 63yo F with hx tobacco abuse, COPD not on home O2; admitted for hypoxia and sepsis due to multifocal PNA, complicated by takotsubo cardiomyopathy acute HFrEF/takotsubo cardiomyopathy - TTE 09/10/24: - Normal left ventricular cavity size. There is normal left ventricular wall thickness. The left ventricular systolic function is moderate to severely decreased. The visually estimated ejection fraction is between 25-30%. - The entire apex, the mid anterior, mid inferior, mid anterolateral, mid inferoseptal, mid anteroseptal, and mid inferolateral segments are akinetic. - Takotsubo cardiomyopathy vs multivessel disease. - repeat TTE 09/16/24: - Mildly reduced LV ejection fraction of 45-50% with persistent wall motion abnormality - Cardiology following; given persistent WMAs will need cardic cath once oxygen requirement improves - negative 2.3L cumulatively thus far; change IV to PO furosemide as she appears euvolemic - started valsartan NSTEMI - troponins flat but >3000; EKG with precordial TWIs; heparin drip completed x 48hr; plan cardiac cath as above - ASA, atorvastatin, metoprolol tartrate paroxysmal AF - brief episode 09/13/24; given amiodarone; pt went back into NSR; AF has not recurred - did not tolerate anticoagulation with enoxaparin- developed hemoptysis - continue metoprolol tartrate multifocal PNA with sepsis - continue ceftriaxone 09/10-09/18, doxycycline 09/16-09/24, azithromycin completed 09/10-09/16, BCx negative, PCT low, MRSA neg, urinary antigens for Legionella and pneumococcus negative COPD exacerbation - triggered by human metapneumovirus infection; decrease IV steroids, nebs acute hypoxic respiratory failure - wean O2 as tolerated thrush - oral nystatin possible RUQ mass - artifactual; contrasted CT A/P does not demonstrate mass VTE ppx - SCDs; no heparinoids given hemoptysis dispo - TBD; PT eval today In my clinical judgment, the patient requires continued inpatient hospitalization for the following reasons: hypoxia Total time managing care of this patient today: 40 minutes. Quality Stroke Does the patient have a stroke diagnosis?: No VTE Prior VTE?: No VTE Risk Level:: Medical - moderate - high VTE Device Contraindication: Treatment Not Indicated VTE Drug Contraindication: N/A - Med Ordered
[2024-09-19] MEDS: Sennosides/Docusate Sodium TABLET 2 TAB PO ×2 (11:44→21:09)
--- NOTE | 2024-09-19 12:31 | PM.PNCARD ---
Subjective Subjective Date of Service: 09/19/24 Principal diagnosis: respiratory failure, pneumonia, NSTEMI Interval history: Patient says she feels a lot better. Respiratory status improved end-stage requiring a lot less oxygen. She had expectorate dog colored sputum with no clear hemoptysis. She says she feels a lot better. No overnight arrhythmias. No chest pain syndrome. Review of Systems Constitutional: Reports weakness Eyes: Reports no additional eye complaints Cardiovascular: Denies chest pain, Denies lightheadedness, Denies Loss of Consciousness, Denies palpitations and Reports dyspnea on exertion Respiratory: Reports excessive phlegm production and Reports dyspnea on exertion Reports system reviewed and no additional complaints, except as documented and Reports weakness Psychiatric: Reports no additional psychiatric complaints Endocrine: Denies palpitations Allergic/Immunologic: Reports no additional allergic/immunologic complaints Physical Exam Vital Signs: Last Vital Signs Temp 98.3 F 09/19/24 11:56 Pulse 79 09/19/24 11:56 Resp 18 09/19/24 11:56 BP 116/56 L 09/19/24 11:56 Pulse Ox 92 09/19/24 11:56 O2 Del Method Oxymask 09/19/24 11:56 O2 Flow Rate 5 09/19/24 11:56 FiO2 60 09/18/24 11:36 Oxygen Flow Rate 3 09/10/24 13:57 BMI result Body Mass Index 31.7 Const General: cooperative, alert, awake and in distress mild and respiratory Nutritional Appearance: average body habitus Orientation/consciousness: patient oriented x3 Neck Neck: Yes trachea midline, Yes supple and Yes no JVD Resp Effort & Inspection: respiratory distress Auscultation: crackles and wheezes Cardio Rate: regular rate Rhythm: regular rhythm Heart sounds: S1 normal heart sound present, S2 normal heart sound present, no click, no gallops, no murmurs and no rubs GI Auscultation: normal bowel sounds Skin General skin exam: no rashes or lesions noted Neuro General: patient oriented x3 and no focal motor deficits Extrem General: Yes no clubbing, cyanosis or edema Objective Labs and Meds 09/19/24 06:12 09/19/24 06:12 Lab results: Laboratory Results - last 24 hr 09/19/24 06:12 WBC 23.6 H RBC 4.57 Hgb 13.5 Hct 38.7 MCV 84.7 MCH 29.5 MCHC 34.9 RDW 13.4 Plt Count 401 H MPV 11.2 Absolute Nucleated RBC 0.000 Nucleated RBC % (auto) 0.0 Sodium 132 L Potassium 4.0 Chloride 96 Carbon Dioxide 28 Anion Gap 12 BUN 33 H Creatinine 0.68 Estim Creat Clear Calc 86.4 Estimated GFR > 60 Random Glucose 150 H Calcium 9.1 Total Bilirubin 0.9 AST 17 ALT 47 H Alkaline Phosphatase 61 B-Natriuretic Peptide 95 Total Protein 5.9 L Albumin 3.6 Imaging Radiologist's impression: Impressions Abdomen/Pelvis CT 09/19/24 08:57 IMPRESSION: 1. No evidence of an upper abdominal mass. The abnormality noted on chest CT likely represented volume averaging with the gastric body. 2. 9 mm left adrenal adenoma. 3. Moderate amount of stool throughout the colon. Electronically signed by: Adama Diez MD 09/19/2024 09:46 AM EDT RP Progress Note: A&P Assessment and plan (1) Acute hypoxemic respiratory failure: Status: Acute Assessment and Plan: Acute hypoxemic respiratory failure in a patient with severe COPD presented with acute what appears to be viral multilobar pneumonia. Clinically a lot better compared to few days ago with much improved oxygen initiation status. She had a component of heart failure which also is doing well at this point time. Continue supportive care and oxygen management. Continue management of COPD exacerbation. (2) Cardiomyopathy: Status: Acute Assessment and Plan: Acute cardiomyopathy with improved LV ejection fraction could be due to acute ischemic insult with stunning versus takotsubo cardiomyopathy. Follow-up limited echocardiogram tomorrow. (3) Non-ST elevation TN (NSTEMI): Status: Acute Assessment and Plan: NSTEMI again due to acute myocardial ischemia and/or elevated troponin related to takotsubo cardiomyopathy in setting of severe hypoxemic respiratory failure. Continue aspirin and statins. Continue metoprolol therapy. Will need ischemic evaluation with cardiac catheterization. As the respiratory status improved and she was not had ongoing ischemic symptoms will pursue cardiac catheterization as an outpatient. (4) PAF (paroxysmal atrial fibrillation): Status: Acute Assessment and Plan: Paroxysmal atrial fibrillation acute in the setting of acute respiratory failure. Has resolved. Continue metoprolol therapy. Hold off on oral anticoagulation therapy as this was medically induced atrial fibrillation. Will follow with you Time Spent With Patient Time: Total time managing care of this patient today ____ minutes. Progress Note: Quality Stroke Does the patient have a stroke diagnosis?: No Procedures Date of Service Date of Service: 09/19/24
--- NOTE | 2024-09-19 12:48 | P.PNPL_ITS ---
Subjective Subjective Date of Service: 09/19/24 Principal diagnosis: respiratory failure, pneumonia, NSTEMI Interval history: The patient was seen and examined. She is feeling better, wean to RA Objective Data Labs 09/19/24 06:12 09/19/24 06:12 Labs: Laboratory Results - last 24 hr 09/19/24 06:12 WBC 23.6 H RBC 4.57 Hgb 13.5 Hct 38.7 MCV 84.7 MCH 29.5 MCHC 34.9 RDW 13.4 Plt Count 401 H MPV 11.2 Absolute Nucleated RBC 0.000 Nucleated RBC % (auto) 0.0 Sodium 132 L Potassium 4.0 Chloride 96 Carbon Dioxide 28 Anion Gap 12 BUN 33 H Creatinine 0.68 Estim Creat Clear Calc 86.4 Estimated GFR > 60 Random Glucose 150 H Calcium 9.1 Total Bilirubin 0.9 AST 17 ALT 47 H Alkaline Phosphatase 61 B-Natriuretic Peptide 95 Total Protein 5.9 L Albumin 3.6 Microbiology Microbiology Results: Microbiology 09/10/24 14:21 Blood - Venous Blood Culture - Final No growth after 5 days. 09/10/24 14:21 Blood - Venous Blood Culture - Final No growth after 5 days. 09/10/24 Unknown Urine clean catch - Clean Catch Midstream Urine Culture - Final 09/12/24 05:23 Sputum - Expectorated Gram Stain - Final 09/12/24 05:23 Sputum - Expectorated Sputum Culture - Final Review of Systems Constitutional: Reports weakness Cardiovascular: Denies chest pain, Denies leg edema, Denies lightheadedness, Denies palpitations and Denies dyspnea Respiratory: Reports cough, Denies dyspnea and Reports wheezing Genitourinary: Reports no additional female genitourinary complaints Reports system reviewed and no additional complaints, except as documented and Reports weakness Endocrine: Denies palpitations Allergic/Immunologic: Reports wheezing Physical Exam 2 Vital Signs: Vital Signs: Last Vital Signs Temp 98.3 F 09/19/24 11:56 Pulse 79 09/19/24 11:56 Resp 18 09/19/24 11:56 BP 116/56 L 09/19/24 11:56 Pulse Ox 92 09/19/24 11:56 O2 Del Method Oxymask 09/19/24 11:56 O2 Flow Rate 5 09/19/24 11:56 FiO2 60 09/18/24 11:36 Oxygen Flow Rate 3 09/10/24 13:57 BMI result Body Mass Index 31.7 Const: General: cooperative, alert, awake and in distress mild and respiratory Nutritional Appearance: average body habitus Orientation/consciousness: p atient oriented x3 Neck: Neck: Yes trachea midline, Yes supple and Yes no JVD Chest: Chest palpation & inspection: normal inspection of the chest Resp: Effort & Inspection: no respiratory distress Auscultation: diminished lung sounds Cardio: Rate: regular rate Rhythm: regular rhythm Heart sounds: S1 normal heart sound present and S2 normal heart sound present GI: Auscultation: normal bowel sounds Skin: General skin exam: no rashes or lesions noted Neuro: General: patient oriented x3 and no focal motor deficits Extrem: General: Yes no clubbing, cyanosis or edema Procedures Date of Service Date of Service: 09/19/24 Assessment and Plan Assessment and plan (1) COPD exacerbation: Status: Acute (2) Multifocal pneumonia: Status: Acute (3) Acute hypoxemic respiratory failure: Status: Acute (4) Hemoptysis: Status: Acute Plan change to PO prednisone complete Doxycycline x 8 days change CTX to Vantin to complete 8 days course respiratory therapy diuresis as tolerated walking oximetry upon d/c, may need supplemental oxygen should f/U with Dr Myers, previous pulmonaologist Time Spent With Patient Time: Total time managing care of this patient today ____ minutes. Progress Note: Quality Stroke Does the patient have a stroke diagnosis?: No
--- NOTE | 2024-09-19 13:00 | CA_ITS ---
Transthoracic Echocardiogram Patient (Last, First, Middle): Earlene Causey, Gender: Female Date of : 1960 Age: 63 Procedure Date: 09/19/2024 Procedure Type: Transthoracic Echocardiogram Location: [facility] Height: 162.56 cm Weight: 83.46 kg BSA: 1.89 m2 Heart Rate: 75 bpm BP: 116 / 56 mmHg Delivery Table Operator: ANTIONE Referring MD: Tanvir Mazariegos MD Aluminum Siding Mechanic: Tanvir Mazariegos MD Symptoms: Follow-up cardiomyopathy Study Quality: Adequate, limited order ECG Rhythm: Sinus Conclusions: - Normal LV ejection fraction of 60-65% with impaired relaxation filling pattern Findings Left Ventricle Normal left ventricular size, thickness, and systolic function. The visually estimated ejection fraction is between 60-65%. Spectral Doppler is indicative of an impaired relaxation filling pattern. E/E prime ratio is between 8 and 15 consistent with indeterminate filling pressures. Wall Motion Rest Echo Findings The inferoseptal wall is hypokinetic. The basal inferior segment is akinetic. All other scored wall segments showed normal motion. Prior Study Comparison Changes noted compared to prior study dated: 09/16/2024. LV systolic function is in normal range Measurements 2D Linear Measurements IVSd: 1.00 0.6-0.9/0.6-1.0 cm LVIDd: 4.20 3.9-5.3/4.2-5.9 cm LVIDd Index: 2.22 2.4-3.2/2.2-3.1 cm/m2 LVIDs: 2.78 2.0-3.6 cm LVPWd: 1.11 0.7-1.1 cm LA Diam: 3.20 2.7-3.8/3.0-4.0 cm LAIDs Index: 1.69 1.5-2.3 cm/m2 LV Mass: 184.24 67-162/88-224 g LV Mass Index: 97.48 43-95/49-115 g/m2 LVOT Diam: 1.90 3.0+(-)1.3 cm 2D Systolic Function EF 4C: 62.00 >55% EF 2C: 65.00 >55% EF BiP: 64.20 >55% Mitral Valve MV Pk E: 0.68 MV PK A: 0.88 MV Decel Time: 240.00 E/A: 0.80 E'Lateral: 10.60 E'Medial: 6.47 E/E' Med: 10.50 E/E' Lat: 6.40 PHT: 79.00 MVA PHT: 2.78 Decel [place]: 2.52 LVOT LVOT Pk [place]: 1.07 LVOT Mn [place]: 0.79 LVOT VTI: 0.21 LVOT Pk Grad: 5.00 LVOT Mn Grad: 3.00 LVOT Diam: 1.90 LVOT Area: 2.84 Diastolic Function MV Pk E: 0.68 MV Pk A: 0.88 E/A: 0.80 E'Medial: 6.47 E/E' Med: 10.50 E' Laterial: 10.60 E/E' Lat: 6.40 Updated in Other Vendor System with Status of Final Tanvir Mazariegos MD electronically signed on 09/19/2024 4:31:27 PM with status of Final
[2024-09-19 14:43] LABS: Anti Nuclear Antibody Pattern Nuclear, Homogeneous; Anti Nuclear Antibody Screen POSITIVE (NEGATIVE)
[2024-09-19] MEDS: Doxycycline Monohydrate 100 MG CAPSULE PO (16:04)
[2024-09-19] MEDS: cefTRIAXone sodium 1 GM VIAL IVPUSH (16:04)
[2024-09-19] MEDS: Atorvastatin Calcium 80 MG TABLET PO (21:09)
[2024-09-20] VITALS (11 sets, daily range): BP systolic 104–136; BP diastolic 54–67; PULSE 64–110; RESP 16–20; TEMP 36.2–36.7; O2SAT 83–96
[2024-09-20] MEDS: Doxycycline Monohydrate 100 MG CAPSULE PO ×2 (02:37→14:12)
[2024-09-20] MEDS: Omeprazole 20 MG CAPSULE.DR PO ×2 (05:29→16:15)
[2024-09-20] MEDS: levalbuterol HCL 1.25 MG/3 ML VIAL.NEB INHALE ×3 (08:19→19:08)
[2024-09-20] MEDS: Nystatin Oral Susp 500,000 UNIT/5 ML ORAL.SUSP 500000 UNIT PO ×4 (08:22→20:12)
[2024-09-20] MEDS: Sennosides/Docusate Sodium TABLET 2 TAB PO ×2 (08:23→20:13)
[2024-09-20] MEDS: Metoprolol Tartrate 12.5 MG HALFTAB PO ×2 (08:23→20:13)
[2024-09-20] MEDS: predniSONE 20 MG TABLET 40 MG PO (08:23)
[2024-09-20] MEDS: Valsartan 40 MG TABLET 20 MG PO ×2 (08:23→20:13)
[2024-09-20] MEDS: Furosemide 20 MG TABLET PO ×2 (08:23→18:07)
[2024-09-20] MEDS: Aspirin 81 MG TAB.CHEW PO (08:24)
[2024-09-20] MEDS: 0.9 % Sodium Chloride Flush 3 ML SYRINGE IVFLUSH ×3 (08:24→20:19)
[2024-09-20] MEDS: Benzonatate 100 MG CAPSULE PO ×3 (08:24→20:13)
--- NOTE | 2024-09-20 11:32 | P.PNIM_ITS ---
Subjective Subjective Date of Service: 09/20/24 Interval History: sad; overwhelmed as significant other is admitted to the ICU breathing continues to slowly improve but requiring 3L at rest, 4L with ambulation no chest pain Review of Systems Review of Systems: Yes all other systems are reviewed and are negative Physical Exam 2 Vital Signs: Vital Signs: Last Vital Signs Temp 97.6 F 09/20/24 11:13 Pulse 78 09/20/24 11:13 Resp 18 09/20/24 11:13 BP 104/55 L 09/20/24 11:13 Pulse Ox 90 L 09/20/24 11:13 O2 Del Method Nasal Cannula 09/20/24 11:13 O2 Flow Rate 3 09/20/24 11:13 FiO2 60 09/18/24 11:36 Oxygen Flow Rate 3 09/10/24 13:57 BMI result Body Mass Index 31.7 Gen: in no acute distress HEENT: sclera anicteric, moist mucus membranes Neck: supple Lungs: diminished Heart: regular rate and rhythm, no murmurs Abd: soft, non-tender, non-distended Ext: no edema Skin: warm/well-perfused Neuro: alert and oriented x3, no focal findings Psych: appropriate affect Objective Data Active Medications Acetaminophen (Acetaminophen 325 Mg Tablet) 650 mg PO Q6H PRN PRN Reason: Pain, Mild 1-3,fever,headache Last Admin: 09/15/24 20:47 Dose: 650 mg Documented By: KATELYN Albuterol/Ipratropium (Albuterol/Iprat 2.5/0.5mg 3 Ml Ampul.Neb) 3 ml INHALE Q4H PRN PRN Reason: Wheezing Last Admin: 09/17/24 23:01 Dose: 3 ml Documented By: WELLINGTON Aspirin (Aspirin 81 Mg Tab.Chew) 81 mg PO DAILY [facility] Last Admin: 09/20/24 08:24 Dose: 81 mg Documented By: ERIN Atorvastatin Calcium (Atorvastatin Calcium 80 Mg Tablet) 80 mg PO BEDTIME [facility] Last Admin: 09/19/24 21:09 Dose: 80 mg Documented By: RONIT Benzonatate (Benzonatate 100 Mg Capsule) 100 mg PO TID [facility] Last Admin: 09/20/24 08:24 Dose: 100 mg Documented By: ERIN Calcium Carbonate (Calcium Carbonate 750 Mg Tab.Chew) 750 mg PO Q4H PRN PRN Reason: Heartburn Docusate Sodium (Docusate Sodium 100 Mg Capsule) 100 mg PO BID PRN PRN Reason: Constipation Last Admin: 09/15/24 13:56 Dose: 100 mg Documented By: JAJA Doxycycline Monohydrate (Doxycycline Monohydrate 100 Mg Capsule) 100 mg PO Q12H [facility] Last Admin: 09/20/24 02:37 Dose: 100 mg Documented By: RONIT Furosemide (Furosemide 20 Mg Tablet) 20 mg PO BID@0900,1800 [facility]; Protocol Last Admin: 09/20/24 08:23 Dose: 20 mg Documented By: ERIN Guaifenesin (Guaifenesin 200 Mg/10 Ml 10 Ml Liquid) 10 ml PO Q4H PRN PRN Reason: Cough Last Admin: 09/19/24 16:04 Dose: 10 ml Documented By: ANSON Guaifenesin (Guaifenesin 200 Mg/10 Ml 10 Ml Liquid) 10 ml PO Q4H PRN PRN Reason: Cough Levalbuterol HCl (Levalbuterol Hcl 1.25 Mg/3 Ml Vial.Neb) 1.25 mg INHALE RTID [facility] Last Admin: 09/20/24 08:19 Dose: 1.25 mg Documented By: PHONG Magnesium Hydroxide (Milk Of Magnesia 30 Ml Oral.Susp) 30 ml PO DAILY PRN PRN Reason: Constipation Melatonin (Melatonin 3 Mg Tablet) 6 mg PO BEDTIME PRN PRN Reason: Insomnia Last Admin: 09/19/24 22:56 Dose: 6 mg Documented By: RONIT Metoprolol Tartrate (Metoprolol Tartrate 12.5 Mg Halftab) 12.5 mg PO BID [facility]; Protocol Last Admin: 09/20/24 08:23 Dose: 12.5 mg Documented By: ERIN Nystatin (Nystatin Oral Susp 500,000 Unit/5 Ml Oral.Susp) 500,000 unit PO QID [facility]; Protocol Last Admin: 09/20/24 08:22 Dose: 500,000 unit Documented By: ERIN Omeprazole (Omeprazole 20 Mg Capsule.Dr) 20 mg PO BID@0630,1630 [facility] Last Admin: 09/20/24 05:29 Dose: 20 mg Documented By: RONIT Prednisone (Prednisone 20 Mg Tablet) 40 mg PO DAILY [facility] Last Admin: 09/20/24 08:23 Dose: 40 mg Documented By: ERIN Senna/Docusate Sodium (Sennosides/Docusate Sodium Tablet) 2 tab PO BID [facility] Last Admin: 09/20/24 08:23 Dose: 2 tab Documented By: ERIN Sodium Chloride (0.9 % Sodium Chloride Flush 3 Ml Syringe) 3 ml IVFLUSH QSHIFT [facility] Last Admin: 09/20/24 08:24 Dose: 3 ml Documented By: ERIN Valsartan (Valsartan 40 Mg Tablet) 20 mg PO BID [facility]; Protocol Last Admin: 09/20/24 08:23 Dose: 20 mg Documented By: ERIN Labs 09/19/24 06:12 09/19/24 06:12 Labs: Laboratory Results - last 24 hr 09/16/24 14:14 ELSA Screen POSITIVE A ELSA Titer 1:80 H ELSA Titer 2 TNP ELSA Titer 3 TNP ELSA Pattern Nuclear, Homogeneous A ELSA Pattern 2 TNP ELSA Pattern 3 TNP Assessment and Plan (1) PAF (paroxysmal atrial fibrillation): Status: Acute (2) COPD exacerbation: Status: Acute (3) Multifocal pneumonia: Status: Acute Plan d11 for 63yo F with hx tobacco abuse, COPD not on home O2; admitted for hypoxia and sepsis due to multifocal PNA, complicated by takotsubo cardiomyopathy acute HFrEF/takotsubo cardiomyopathy - TTE 09/10/24: - Normal left ventricular cavity size. There is normal left ventricular wall thickness. The left ventricular systolic function is moderate to severely decreased. The visually estimated ejection fraction is between 25-30%. - The entire apex, the mid anterior, mid inferior, mid anterolateral, mid inferoseptal, mid anteroseptal, and mid inferolateral segments are akinetic. - Takotsubo cardiomyopathy vs multivessel disease. - repeat TTE 09/16/24: - Mildly reduced LV ejection fraction of 45-50% with persistent wall motion abnormality - repeat TTE 09/19/24: Normal LV ejection fraction of 60-65% with impaired relaxation filling pattern - Cardiology will arrange outpatient cardiac cath - continue PO furosemide + valsartan NSTEMI - troponins flat but >3000; EKG with precordial TWIs; heparin drip completed x 48hr; plan cardiac cath as above - ASA, atorvastatin, metoprolol tartrate paroxysmal AF - brief episode 09/13/24; given amiodarone; pt went back into NSR; AF has not recurred - did not tolerate anticoagulation with enoxaparin- developed hemoptysis, which has resolved - continue metoprolol tartrate multifocal PNA with sepsis - continue ceftriaxone 09/10-09/18, doxycycline 09/16-09/24, azithromycin completed 09/10-09/16, BCx negative, PCT low, MRSA neg, urinary antigens for Legionella and pneumococcus negative COPD exacerbation - triggered by human metapneumovirus infection; change from IV methylprednisolone to PO prednisone taper today, continue nebs acute hypoxic respiratory failure - wean O2 as tolerated but need home O2 thrush - continue oral nystatin possible RUQ mass - artifactual; contrasted CT A/P does not demonstrate mass adjustment disorder with anxious mood - start sertraline VTE ppx - SCDs; no heparinoids given hemoptysis dispo - plan eventual home but does not have PCP or insurance so cannot have VNA/PT services. Need plan for how to pay for home O2 as well In my clinical judgment, the patient requires continued inpatient hospitalization for the following reasons: hypoxia Total time managing care of this patient today: 40 minutes. Quality Stroke Does the patient have a stroke diagnosis?: No VTE Prior VTE?: No VTE Risk Level:: Medical - moderate - high VTE Device Contraindication: Treatment Not Indicated VTE Drug Contraindication: N/A - Med Ordered
--- NOTE | 2024-09-20 11:43 | PM.PNCARD ---
Subjective Subjective Date of Service: 09/20/24 Principal diagnosis: respiratory failure, pneumonia, NSTEMI Interval history: Patient feeling better. Requiring lesser oxygen. Echocardiogram from yesterday showed improved/normalized ejection fraction. No chest pain or overnight atrial fibrillation. Review of Systems Constitutional: Reports weakness Cardiovascular: Denies chest pain, Denies leg edema, Denies lightheadedness, Denies Loss of Consciousness, Denies palpitations and Reports dyspnea on exertion Respiratory: Reports excessive phlegm production and Reports dyspnea on exertion Musculoskeletal: Reports no additional musculoskeletal complaints Reports system reviewed and no additional complaints, except as documented and Reports weakness Endocrine: Denies palpitations Physical Exam Vital Signs: Last Vital Signs Temp 97.6 F 09/20/24 11:13 Pulse 78 09/20/24 11:13 Resp 18 09/20/24 11:13 BP 104/55 L 09/20/24 11:13 Pulse Ox 90 L 09/20/24 11:13 O2 Del Method Nasal Cannula 09/20/24 11:13 O2 Flow Rate 3 09/20/24 11:13 FiO2 60 09/18/24 11:36 Oxygen Flow Rate 3 09/10/24 13:57 BMI result Body Mass Index 31.7 Const General: cooperative, alert, awake and in distress mild and respiratory Nutritional Appearance: average body habitus Orientation/consciousness: patient oriented x3 Neck Neck: Yes trachea midline, Yes supple and Yes no JVD Resp Effort & Inspection: respiratory distress Auscultation: crackles and wheezes Cardio Rate: regular rate Rhythm: regular rhythm Heart sounds: S1 normal heart sound present, S2 normal heart sound present, no click, no gallops, no murmurs and no rubs GI Auscultation: normal bowel sounds Skin General skin exam: no rashes or lesions noted Neuro General: patient oriented x3 and no focal motor deficits Extrem General: Yes no clubbing, cyanosis or edema Objective Labs and Meds 09/19/24 06:12 09/19/24 06:12 Lab results: Laboratory Results - last 24 hr 09/16/24 14:14 ELSA Screen POSITIVE A ELSA Titer 1:80 H ELSA Titer 2 TNP ELSA Titer 3 TNP ELSA Pattern Nuclear, Homogeneous A ELSA Pattern 2 TNP ELSA Pattern 3 TNP Progress Note: A&P Assessment and plan (1) Acute hypoxemic respiratory failure: Status: Acute Assessment and Plan: Acute hypoxemic respiratory failure secondary to COPD exacerbation secondary to multilobar viral pneumonia. Patient was improving gradually with lesser oxygen requirement. Plan for oxygen supplementation on discharge as she improves gradually as outpatient. Follow up with Pulmonary. Component of heart failure which appears to be clinically improved. Continue oral Lasix therapy. (2) Non-ST elevation NE (NSTEMI): Status: Acute Assessment and Plan: NSTEMI with significant LV systolic dysfunction suspected to be takotsubo cardiomyopathy. Sternal LV myocardium related to coronary artery disease can not be entirely ruled out. LV systolic function has normalized. Continue current therapy with aspirin and statins as well as metoprolol therapy. Will need outpatient cardiac catheterization was discussed with her. (3) PAF (paroxysmal atrial fibrillation): Status: Acute Assessment and Plan: Paroxysmal atrial fibrillation setting of acute medical illness. No recurrence. Continue metoprolol therapy. Hold off on oral anticoagulant therapy. Will set up for outpatient Holter monitor. Will set up for outpatient follow-up. Will sign off on her case. Thank you for allowing me to partake in her care Time Spent With Patient Time: Total time managing care of this patient today ____ minutes. Progress Note: Quality Stroke Does the patient have a stroke diagnosis?: No Procedures Date of Service Date of Service: 09/20/24
[2024-09-20] MEDS: Sertraline HCL 25 MG TABLET PO (12:25)
--- NOTE | 2024-09-20 14:11 | MHC.CM.PN ---
Addendum entered by Germaine Morales 09/20/24 16:22: CM MET WITH PT AND NIECE NIECE REQUESTING FMLA PAPERWORK BE COMPLETED FOR PT CM EMAILED SPECIALIST WHO WILL BE FOLLOWING PT POST DC TO DETERMINE IF THEY WOULD COMPLETE IT. PT AWAITING INS COVERAGE TO DC WITH NEW O2 Original Note: PT WILL NEED O2 AT DISCHARGE, SHE HAS NO HEALTH INSURANCE AND NO PCP [place] [facility] [place] WITH [place]
[2024-09-20] MEDS: Atorvastatin Calcium 80 MG TABLET PO (20:13)
[2024-09-20] MEDS: guaiFENesin 200 MG/10 ML 10 ML LIQUID PO (20:14)
[2024-09-20] MEDS: Melatonin 3 MG TABLET 6 MG PO (21:33)
[2024-09-21] VITALS (9 sets, daily range): BP systolic 118–153; BP diastolic 57–68; PULSE 67–87; RESP 14–18; TEMP 35.9–36.5; O2SAT 88–94
[2024-09-21] MEDS: Doxycycline Monohydrate 100 MG CAPSULE PO ×2 (03:15→13:30)
[2024-09-21] MEDS: Omeprazole 20 MG CAPSULE.DR PO ×2 (06:30→18:11)
[2024-09-21] MEDS: levalbuterol HCL 1.25 MG/3 ML VIAL.NEB INHALE ×3 (07:31→19:12)
[2024-09-21] MEDS: 0.9 % Sodium Chloride Flush 3 ML SYRINGE IVFLUSH ×3 (08:27→19:53)
[2024-09-21] MEDS: predniSONE 20 MG TABLET 40 MG PO (08:29)
[2024-09-21] MEDS: Furosemide 20 MG TABLET PO ×2 (08:30→18:11)
[2024-09-21] MEDS: Valsartan 40 MG TABLET 20 MG PO ×2 (08:30→19:50)
[2024-09-21] MEDS: Metoprolol Tartrate 12.5 MG HALFTAB PO ×2 (08:30→19:50)
[2024-09-21] MEDS: Aspirin 81 MG TAB.CHEW PO (08:30)
[2024-09-21] MEDS: Sennosides/Docusate Sodium TABLET 2 TAB PO (08:31)
[2024-09-21] MEDS: Sertraline HCL 25 MG TABLET PO (08:33)
[2024-09-21] MEDS: Benzonatate 100 MG CAPSULE PO ×3 (08:33→19:50)
[2024-09-21] MEDS: Nystatin Oral Susp 500,000 UNIT/5 ML ORAL.SUSP 500000 UNIT PO ×4 (08:34→19:49)
--- NOTE | 2024-09-21 10:47 | P.PNIM_ITS ---
Subjective Subjective Date of Service: 09/21/24 Interval History: breathing improved anxious no chest pain Review of Systems Review of Systems: Yes all other systems are reviewed and are negative Physical Exam 2 Vital Signs: Vital Signs: Last Vital Signs Temp 97.1 F 09/21/24 08:00 Pulse 87 09/21/24 08:00 Resp 16 09/21/24 08:00 BP 130/60 09/21/24 08:00 Pulse Ox 88 L 09/21/24 08:00 O2 Del Method Nasal Cannula 09/21/24 08:00 O2 Flow Rate 2 09/21/24 08:00 FiO2 60 09/18/24 11:36 Oxygen Flow Rate 3 09/10/24 13:57 BMI result Body Mass Index 31.7 Gen: in no acute distress HEENT: sclera anicteric, moist mucus membranes Neck: supple Lungs: diminished Heart: regular rate and rhythm, no murmurs Abd: soft, non-tender, non-distended Ext: no edema Skin: warm/well-perfused Neuro: alert and oriented x3, no focal findings Psych: appropriate affect Objective Data Active Medications Acetaminophen (Acetaminophen 325 Mg Tablet) 650 mg PO Q6H PRN PRN Reason: Pain, Mild 1-3,fever,headache Last Admin: 09/15/24 20:47 Dose: 650 mg Documented By: KATELYN Albuterol/Ipratropium (Albuterol/Iprat 2.5/0.5mg 3 Ml Ampul.Neb) 3 ml INHALE Q4H PRN PRN Reason: Wheezing Last Admin: 09/17/24 23:01 Dose: 3 ml Documented By: WELLINGTON Aspirin (Aspirin 81 Mg Tab.Chew) 81 mg PO DAILY [facility] Last Admin: 09/21/24 08:30 Dose: 81 mg Documented By: MENDOZA Atorvastatin Calcium (Atorvastatin Calcium 80 Mg Tablet) 80 mg PO BEDTIME [facility] Last Admin: 09/20/24 20:13 Dose: 80 mg Documented By: PABLO Benzonatate (Benzonatate 100 Mg Capsule) 100 mg PO TID [facility] Last Admin: 09/21/24 08:33 Dose: 100 mg Documented By: MENDOZA Calcium Carbonate (Calcium Carbonate 750 Mg Tab.Chew) 750 mg PO Q4H PRN PRN Reason: Heartburn Docusate Sodium (Docusate Sodium 100 Mg Capsule) 100 mg PO BID PRN PRN Reason: Constipation Last Admin: 09/15/24 13:56 Dose: 100 mg Documented By: JAJA Doxycycline Monohydrate (Doxycycline Monohydrate 100 Mg Capsule) 100 mg PO Q12H [facility] Last Admin: 09/21/24 03:15 Dose: 100 mg Documented By: PABLO Furosemide (Furosemide 20 Mg Tablet) 20 mg PO BID@0900,1800 [facility]; Protocol Last Admin: 09/21/24 08:30 Dose: 20 mg Documented By: MENDOZA Guaifenesin (Guaifenesin 200 Mg/10 Ml 10 Ml Liquid) 10 ml PO Q4H PRN PRN Reason: Cough Last Admin: 09/20/24 20:14 Dose: 10 ml Documented By: PABLO Guaifenesin (Guaifenesin 200 Mg/10 Ml 10 Ml Liquid) 10 ml PO Q4H PRN PRN Reason: Cough Levalbuterol HCl (Levalbuterol Hcl 1.25 Mg/3 Ml Vial.Neb) 1.25 mg INHALE RTID [facility] Last Admin: 09/21/24 07:31 Dose: 1.25 mg Documented By: AUGUSTO Magnesium Hydroxide (Milk Of Magnesia 30 Ml Oral.Susp) 30 ml PO DAILY PRN PRN Reason: Constipation Melatonin (Melatonin 3 Mg Tablet) 6 mg PO BEDTIME PRN PRN Reason: Insomnia Last Admin: 09/20/24 21:33 Dose: 6 mg Documented By: PABLO Metoprolol Tartrate (Metoprolol Tartrate 12.5 Mg Halftab) 12.5 mg PO BID [facility]; Protocol Last Admin: 09/21/24 08:30 Dose: 12.5 mg Documented By: MENDOZA Nystatin (Nystatin Oral Susp 500,000 Unit/5 Ml Oral.Susp) 500,000 unit PO QID [facility]; Protocol Last Admin: 09/21/24 08:34 Dose: 500,000 unit Documented By: MENDOZA Omeprazole (Omeprazole 20 Mg Capsule.Dr) 20 mg PO BID@0630,1630 [facility] Last Admin: 09/21/24 06:30 Dose: 20 mg Documented By: PABLO Prednisone (Prednisone 20 Mg Tablet) 40 mg PO DAILY [facility] Last Admin: 09/21/24 08:29 Dose: 40 mg Documented By: MENDOZA Senna/Docusate Sodium (Sennosides/Docusate Sodium Tablet) 2 tab PO BID [facility] Last Admin: 09/21/24 08:31 Dose: 2 tab Documented By: MENDOZA Sertraline HCl (Sertraline Hcl 25 Mg Tablet) 25 mg PO DAILY [facility] Last Admin: 09/21/24 08:33 Dose: 25 mg Documented By: MENDOZA Sodium Chloride (0.9 % Sodium Chloride Flush 3 Ml Syringe) 3 ml IVFLUSH QSHIFT [facility] Last Admin: 09/21/24 08:27 Dose: 3 ml Documented By: MENDOZA Valsartan (Valsartan 40 Mg Tablet) 20 mg PO BID [facility]; Protocol Last Admin: 09/21/24 08:30 Dose: 20 mg Documented By: MENDOZA Labs 09/19/24 06:12 09/19/24 06:12 Assessment and Plan (1) PAF (paroxysmal atrial fibrillation): Status: Acute (2) COPD exacerbation: Status: Acute (3) Multifocal pneumonia: Status: Acute Plan d12 for 63yo F with hx tobacco abuse, COPD not on home O2; admitted for hypoxia and sepsis due to multifocal PNA, complicated by takotsubo cardiomyopathy acute HFrEF/takotsubo cardiomyopathy - TTE 09/10/24: - Normal left ventricular cavity size. There is normal left ventricular wall thickness. The left ventricular systolic function is moderate to severely decreased. The visually estimated ejection fraction is between 25-30%. - The entire apex, the mid anterior, mid inferior, mid anterolateral, mid inferoseptal, mid anteroseptal, and mid inferolateral segments are akinetic. - Takotsubo cardiomyopathy vs multivessel disease. - repeat TTE 09/16/24: - Mildly reduced LV ejection fraction of 45-50% with persistent wall motion abnormality - repeat TTE 09/19/24: Normal LV ejection fraction of 60-65% with impaired relaxation filling pattern - Cardiology will arrange outpatient cardiac cath - continue PO furosemide + valsartan - will transfer to med/surg NSTEMI - troponins flat but >3000; EKG with precordial TWIs; heparin drip completed x 48hr; plan cardiac cath as outpt as above - continue ASA, atorvastatin, metoprolol tartrate paroxysmal AF - brief episode 09/13/24; given amiodarone; pt went back into NSR; AF has not recurred - did not tolerate anticoagulation with enoxaparin- developed hemoptysis, which has resolved - continue metoprolol tartrate multifocal PNA with sepsis - continue ceftriaxone 09/10-09/18, doxycycline 09/16-09/24, azithromycin completed 09/10-09/16, BCx negative, PCT low, MRSA neg, urinary antigens for Legionella and pneumococcus negative COPD exacerbation - triggered by human metapneumovirus infection; taper prednisone over next 6d, continue nebs acute hypoxic respiratory failure - wean O2 as tolerated but need home O2 [currently 3L at rest/4L with ambulation] thrush - continue oral nystatin possible RUQ mass - artifactual; contrasted CT A/P does not demonstrate mass adjustment disorder with anxious mood - started sertraline VTE ppx - SCDs; no heparinoids given hemoptysis dispo - plan eventual home but does not have PCP or insurance so cannot have VNA/PT services. Need plan for how to pay for home O2 as well In my clinical judgment, the patient requires continued inpatient hospitalization for the following reasons: hypoxia, discharge planning Total time managing care of this patient today: 35 minutes. Quality Stroke Does the patient have a stroke diagnosis?: No VTE Prior VTE?: No VTE Risk Level:: Medical - moderate - high VTE Device Contraindication: Treatment Not Indicated VTE Drug Contraindication: N/A - Med Ordered
[2024-09-21] MEDS: guaiFENesin 200 MG/10 ML 10 ML LIQUID PO (13:30)
[2024-09-21] MEDS: Atorvastatin Calcium 80 MG TABLET PO (19:49)
[2024-09-22] VITALS (7 sets, daily range): BP systolic 111–123; BP diastolic 56–58; PULSE 77–90; RESP 16–20; TEMP 36.1–36.7; O2SAT 90–98
[2024-09-22] MEDS: Doxycycline Monohydrate 100 MG CAPSULE PO ×2 (03:13→13:06)
[2024-09-22] MEDS: Omeprazole 20 MG CAPSULE.DR PO ×2 (04:36→15:33)
[2024-09-22] MEDS: levalbuterol HCL 1.25 MG/3 ML VIAL.NEB INHALE ×3 (07:36→19:47)
[2024-09-22] MEDS: predniSONE 20 MG TABLET PO (08:00)
[2024-09-22] MEDS: 0.9 % Sodium Chloride Flush 3 ML SYRINGE IVFLUSH ×2 (08:00→15:33)
[2024-09-22] MEDS: Nystatin Oral Susp 500,000 UNIT/5 ML ORAL.SUSP 500000 UNIT PO ×4 (08:01→19:53)
[2024-09-22] MEDS: Valsartan 40 MG TABLET 20 MG PO ×2 (08:02→19:55)
[2024-09-22] MEDS: Aspirin 81 MG TAB.CHEW PO (08:03)
[2024-09-22] MEDS: Sertraline HCL 25 MG TABLET PO (08:03)
[2024-09-22] MEDS: Furosemide 20 MG TABLET PO ×2 (08:03→17:17)
[2024-09-22] MEDS: Metoprolol Tartrate 12.5 MG HALFTAB PO ×2 (08:04→19:57)
[2024-09-22] MEDS: Benzonatate 100 MG CAPSULE PO ×3 (08:05→19:54)
--- NOTE | 2024-09-22 09:51 | P.PNIM_ITS ---
Subjective Subjective Date of Service: 09/22/24 Interval History: breathing improved no chest pain Review of Systems Review of Systems: Yes all other systems are reviewed and are negative Physical Exam 2 Vital Signs: Vital Signs: Last Vital Signs Temp 97.5 F 09/22/24 07:55 Pulse 90 09/22/24 07:55 Resp 18 09/22/24 07:55 BP 123/56 L 09/22/24 07:55 Pulse Ox 92 09/22/24 07:55 O2 Del Method Nasal Cannula 09/22/24 07:55 O2 Flow Rate 2 09/22/24 07:55 FiO2 60 09/18/24 11:36 Oxygen Flow Rate 3 09/10/24 13:57 BMI result Body Mass Index 31.7 Gen: in no acute distress HEENT: sclera anicteric, moist mucus membranes Neck: supple Lungs: diminished Heart: regular rate and rhythm, no murmurs Abd: soft, non-tender, non-distended Ext: no edema Skin: warm/well-perfused Neuro: alert and oriented x3, no focal findings Psych: appropriate affect Objective Data Active Medications Acetaminophen (Acetaminophen 325 Mg Tablet) 650 mg PO Q6H PRN PRN Reason: Pain, Mild 1-3,fever,headache Last Admin: 09/15/24 20:47 Dose: 650 mg Documented By: KATELYN Albuterol/Ipratropium (Albuterol/Iprat 2.5/0.5mg 3 Ml Ampul.Neb) 3 ml INHALE Q4H PRN PRN Reason: Wheezing Last Admin: 09/17/24 23:01 Dose: 3 ml Documented By: WELLINGTON Aspirin (Aspirin 81 Mg Tab.Chew) 81 mg PO DAILY [facility] Last Admin: 09/22/24 08:03 Dose: 81 mg Documented By: MENDOZA Atorvastatin Calcium (Atorvastatin Calcium 80 Mg Tablet) 80 mg PO BEDTIME [facility] Last Admin: 09/21/24 19:49 Dose: 80 mg Documented By: PABLO Benzonatate (Benzonatate 100 Mg Capsule) 100 mg PO TID [facility] Last Admin: 09/22/24 08:05 Dose: 100 mg Documented By: MENDOZA Calcium Carbonate (Calcium Carbonate 750 Mg Tab.Chew) 750 mg PO Q4H PRN PRN Reason: Heartburn Docusate Sodium (Docusate Sodium 100 Mg Capsule) 100 mg PO BID PRN PRN Reason: Constipation Last Admin: 09/15/24 13:56 Dose: 100 mg Documented By: JAJA Doxycycline Monohydrate (Doxycycline Monohydrate 100 Mg Capsule) 100 mg PO Q12H [facility] Last Admin: 09/22/24 03:13 Dose: 100 mg Documented By: PABLO Furosemide (Furosemide 20 Mg Tablet) 20 mg PO BID@0900,1800 [facility]; Protocol Last Admin: 09/22/24 08:03 Dose: 20 mg Documented By: MENDOZA Guaifenesin (Guaifenesin 200 Mg/10 Ml 10 Ml Liquid) 10 ml PO Q4H PRN PRN Reason: Cough Last Admin: 09/21/24 13:30 Dose: 10 ml Documented By: MENDOZA Guaifenesin (Guaifenesin 200 Mg/10 Ml 10 Ml Liquid) 10 ml PO Q4H PRN PRN Reason: Cough Levalbuterol HCl (Levalbuterol Hcl 1.25 Mg/3 Ml Vial.Neb) 1.25 mg INHALE RTID [facility] Last Admin: 09/22/24 07:36 Dose: 1.25 mg Documented By: JL Magnesium Hydroxide (Milk Of Magnesia 30 Ml Oral.Susp) 30 ml PO DAILY PRN PRN Reason: Constipation Melatonin (Melatonin 3 Mg Tablet) 6 mg PO BEDTIME PRN PRN Reason: Insomnia Last Admin: 09/20/24 21:33 Dose: 6 mg Documented By: PABLO Metoprolol Tartrate (Metoprolol Tartrate 12.5 Mg Halftab) 12.5 mg PO BID [facility]; Protocol Last Admin: 09/22/24 08:04 Dose: 12.5 mg Documented By: MENDOZA Nystatin (Nystatin Oral Susp 500,000 Unit/5 Ml Oral.Susp) 500,000 unit PO QID [facility]; Protocol Last Admin: 09/22/24 08:01 Dose: 500,000 unit Documented By: MENDOZA Omeprazole (Omeprazole 20 Mg Capsule.Dr) 20 mg PO BID@0630,1630 [facility] Last Admin: 09/22/24 04:36 Dose: 20 mg Documented By: PABLO Prednisone (Prednisone 20 Mg Tablet) 30 mg PO DAILY [facility]; Taper Stop: 09/28/24 08:59 Last Admin: 09/22/24 08:00 Dose: 30 mg Documented By: MENDOZA Senna/Docusate Sodium (Sennosides/Docusate Sodium Tablet) 2 tab PO BID [facility] Last Admin: 09/22/24 09:18 Dose: Not Given Documented By: MENDOZA Non-Admin Reason: Patient Refused Sertraline HCl (Sertraline Hcl 25 Mg Tablet) 25 mg PO DAILY [facility] Last Admin: 09/22/24 08:03 Dose: 25 mg Documented By: MENDOZA Sodium Chloride (0.9 % Sodium Chloride Flush 3 Ml Syringe) 3 ml IVFLUSH QSHIFT [facility] Last Admin: 09/22/24 08:00 Dose: 3 ml Documented By: MENDOZA Valsartan (Valsartan 40 Mg Tablet) 20 mg PO BID [facility]; Protocol Last Admin: 09/22/24 08:02 Dose: 20 mg Documented By: MENDOZA Labs 09/19/24 06:12 09/19/24 06:12 Assessment and Plan (1) PAF (paroxysmal atrial fibrillation): Status: Acute (2) COPD exacerbation: Status: Acute (3) Multifocal pneumonia: Status: Acute Plan d13 for 63yo F with hx tobacco abuse, COPD not on home O2; admitted for hypoxia and sepsis due to multifocal PNA, complicated by takotsubo cardiomyopathy acute HFrEF/takotsubo cardiomyopathy - TTE 09/10/24: - Normal left ventricular cavity size. There is normal left ventricular wall thickness. The left ventricular systolic function is moderate to severely decreased. The visually estimated ejection fraction is between 25-30%. - The entire apex, the mid anterior, mid inferior, mid anterolateral, mid inferoseptal, mid anteroseptal, and mid inferolateral segments are akinetic. - Takotsubo cardiomyopathy vs multivessel disease. - repeat TTE 09/16/24: - Mildly reduced LV ejection fraction of 45-50% with persistent wall motion abnormality - repeat TTE 09/19/24: Normal LV ejection fraction of 60-65% with impaired relaxation filling pattern - Cardiology will arrange outpatient cardiac cath - continue PO furosemide + valsartan NSTEMI - troponins flat but >3000; EKG with precordial TWIs; heparin drip completed x 48hr; outpt cardiac cath as above - continue ASA, atorvastatin, metoprolol tartrate paroxysmal AF - brief episode 09/13/24; given amiodarone; pt went back into NSR; AF has not recurred - did not tolerate anticoagulation with enoxaparin- developed hemoptysis, which has resolved - continue metoprolol tartrate multifocal PNA with sepsis - continue ceftriaxone 09/10-09/18, doxycycline 09/16-09/24, azithromycin completed 09/10-09/16, BCx negative, PCT low, MRSA neg, urinary antigens for Legionella and pneumococcus negative COPD exacerbation - triggered by human metapneumovirus infection; taper prednisone off by 09/28, continue nebs acute hypoxic respiratory failure - wean O2 as tolerated but need home O2 [currently 2L at rest/4L with ambulation] thrush - continue oral nystatin possible RUQ mass - artifactual; contrasted CT A/P does not demonstrate mass adjustment disorder with anxious mood - started sertraline VTE ppx - SCDs; no heparinoids given hemoptysis dispo - plan eventual home but does not have PCP or insurance so cannot have VNA/PT services. Need plan for how to pay for home O2 as well In my clinical judgment, the patient requires continued inpatient hospitalization for the following reasons: hypoxia, discharge planning Total time managing care of this patient today: 35 minutes. Quality Stroke Does the patient have a stroke diagnosis?: No VTE Prior VTE?: No VTE Risk Level:: Medical - moderate - high VTE Device Contraindication: Treatment Not Indicated VTE Drug Contraindication: N/A - Med Ordered
[2024-09-22] MEDS: Atorvastatin Calcium 80 MG TABLET PO (19:57)
[2024-09-22] MEDS: Melatonin 3 MG TABLET 6 MG PO (22:25)
[2024-09-22] MEDS: guaiFENesin 200 MG/10 ML 10 ML LIQUID PO (22:25)
[2024-09-23] MEDS: Doxycycline Monohydrate 100 MG CAPSULE PO ×2 (01:30→14:22)
[2024-09-23] MEDS: 0.9 % Sodium Chloride Flush 3 ML SYRINGE IVFLUSH ×3 (01:31→20:49)
[2024-09-23 04:00] VITALS: BP 125/58; PULSE 75; RESP 18; TEMP 36.2; O2SAT 93
[2024-09-23] MEDS: Omeprazole 20 MG CAPSULE.DR PO ×2 (06:26→16:52)
[2024-09-23 07:48] VITALS: BP 119/57; PULSE 78; RESP 16; TEMP 36.1; O2SAT 92
[2024-09-23] MEDS: Benzonatate 100 MG CAPSULE PO ×3 (09:34→20:43)
[2024-09-23] MEDS: Aspirin 81 MG TAB.CHEW PO (09:34)
[2024-09-23] MEDS: Furosemide 20 MG TABLET PO ×2 (09:34→16:52)
[2024-09-23] MEDS: Metoprolol Tartrate 12.5 MG HALFTAB PO ×2 (09:34→20:43)
[2024-09-23] MEDS: predniSONE 20 MG TABLET PO (09:35)
[2024-09-23] MEDS: Sertraline HCL 25 MG TABLET PO (09:35)
[2024-09-23] MEDS: Valsartan 40 MG TABLET 20 MG PO ×2 (09:35→20:43)
[2024-09-23] MEDS: Nystatin Oral Susp 500,000 UNIT/5 ML ORAL.SUSP 500000 UNIT PO ×4 (09:38→20:45)
[2024-09-23] MEDS: guaiFENesin 200 MG/10 ML 10 ML LIQUID PO ×2 (09:38→14:22)
[2024-09-23] MEDS: levalbuterol HCL 1.25 MG/3 ML VIAL.NEB INHALE ×2 (11:55→18:52)
[2024-09-23 11:58] VITALS: PULSE 82; O2SAT 92
--- NOTE | 2024-09-23 14:25 | HO.PM.IMPN ---
Subjective Subjective Date of Service: 09/23/24 Interval History: No acute issues overnight. Continues with O2 requirement Review of Systems Denies chest pain admits shortness of breath with the exertion Denies nausea vomiting and diarrhea Denies abdominal pain Denies fever chills Physical Exam Vital Signs: Vital Signs: Last Vital Signs Temp 97.0 F 09/23/24 07:48 Pulse 82 09/23/24 11:58 Resp 16 09/23/24 07:48 BP 119/57 L 09/23/24 07:48 Pulse Ox 92 09/23/24 07:48 O2 Del Method Nasal Cannula 09/23/24 07:48 O2 Flow Rate 2.0 09/23/24 07:48 FiO2 60 09/18/24 11:36 Oxygen Flow Rate 3 09/10/24 13:57 BMI result Body Mass Index 31.7 Const: Other: Awake alert oriented x3 no acute distress Resp: Other: Diminished throughout Cardio: Other: No S4; positive S1-S2; no S3 murmurs rubs or gallops GI: Other: Soft nontender nondistended normoactive bowel sounds Extrem: Other: No edema Objective Data Active Medications Acetaminophen (Acetaminophen 325 Mg Tablet) 650 mg PO Q6H PRN PRN Reason: Pain, Mild 1-3,fever,headache Last Admin: 09/15/24 20:47 Dose: 650 mg Documented By: KATELYN Albuterol/Ipratropium (Albuterol/Iprat 2.5/0.5mg 3 Ml Ampul.Neb) 3 ml INHALE Q4H PRN PRN Reason: Wheezing Last Admin: 09/17/24 23:01 Dose: 3 ml Documented By: WELLINGTON Aspirin (Aspirin 81 Mg Tab.Chew) 81 mg PO DAILY [facility] Last Admin: 09/23/24 09:34 Dose: 81 mg Documented By: KEITH Atorvastatin Calcium (Atorvastatin Calcium 80 Mg Tablet) 80 mg PO BEDTIME [facility] Last Admin: 09/22/24 19:57 Dose: 80 mg Documented By: RAMESH Benzonatate (Benzonatate 100 Mg Capsule) 100 mg PO TID [facility] Last Admin: 09/23/24 09:34 Dose: 100 mg Documented By: KEITH Calcium Carbonate (Calcium Carbonate 750 Mg Tab.Chew) 750 mg PO Q4H PRN PRN Reason: Heartburn Docusate Sodium (Docusate Sodium 100 Mg Capsule) 100 mg PO BID PRN PRN Reason: Constipation Last Admin: 09/15/24 13:56 Dose: 100 mg Documented By: JAJA Doxycycline Monohydrate (Doxycycline Monohydrate 100 Mg Capsule) 100 mg PO Q12H [facility] Last Admin: 09/23/24 01:30 Dose: 100 mg Documented By: DIANA Furosemide (Furosemide 20 Mg Tablet) 20 mg PO BID@0900,1800 [facility]; Protocol Last Admin: 09/23/24 09:34 Dose: 20 mg Documented By: KEITH Guaifenesin (Guaifenesin 200 Mg/10 Ml 10 Ml Liquid) 10 ml PO Q4H PRN PRN Reason: Cough Last Admin: 09/23/24 09:38 Dose: 10 ml Documented By: KEITH Guaifenesin (Guaifenesin 200 Mg/10 Ml 10 Ml Liquid) 10 ml PO Q4H PRN PRN Reason: Cough Levalbuterol HCl (Levalbuterol Hcl 1.25 Mg/3 Ml Vial.Neb) 1.25 mg INHALE RTID [facility] Last Admin: 09/23/24 11:55 Dose: 1.25 mg Documented By: MARIANELA Magnesium Hydroxide (Milk Of Magnesia 30 Ml Oral.Susp) 30 ml PO DAILY PRN PRN Reason: Constipation Melatonin (Melatonin 3 Mg Tablet) 6 mg PO BEDTIME PRN PRN Reason: Insomnia Last Admin: 09/22/24 22:25 Dose: 6 mg Documented By: RAMESH Metoprolol Tartrate (Metoprolol Tartrate 12.5 Mg Halftab) 12.5 mg PO BID [facility]; Protocol Last Admin: 09/23/24 09:34 Dose: 12.5 mg Documented By: KEITH Nystatin (Nystatin Oral Susp 500,000 Unit/5 Ml Oral.Susp) 500,000 unit PO QID [facility]; Protocol Last Admin: 09/23/24 09:38 Dose: 500,000 unit Documented By: KEITH Omeprazole (Omeprazole 20 Mg Capsule.Dr) 20 mg PO BID@0630,1630 [facility] Last Admin: 09/23/24 06:26 Dose: 20 mg Documented By: DIANA Prednisone (Prednisone 20 Mg Tablet) 30 mg PO DAILY [facility]; Taper Stop: 09/28/24 08:59 Last Admin: 09/23/24 09:35 Dose: 30 mg Documented By: KEITH Comments: Senna/Docusate Sodium (Sennosides/Docusate Sodium Tablet) 2 tab PO BID [facility] Last Admin: 09/23/24 09:33 Dose: Not Given Documented By: KEITH Non-Admin Reason: Patient Refused Sertraline HCl (Sertraline Hcl 25 Mg Tablet) 25 mg PO DAILY [facility] Last Admin: 09/23/24 09:35 Dose: 25 mg Documented By: KEITH Sodium Chloride (0.9 % Sodium Chloride Flush 3 Ml Syringe) 3 ml IVFLUSH QSHIFT [facility] Last Admin: 09/23/24 09:38 Dose: 3 ml Documented By: KEITH Valsartan (Valsartan 40 Mg Tablet) 20 mg PO BID [facility]; Protocol Last Admin: 09/23/24 09:35 Dose: 20 mg Documented By: KEITH Comments: Labs 09/19/24 06:12 09/19/24 06:12 Assessment and Plan (1) Takotsubo cardiomyopathy: Status: Acute (2) NSTEMI (non-ST elevated myocardial infarction): Status: Acute Plan 63yo F with hx tobacco abuse, COPD not on home O2; admitted for hypoxia and sepsis due to multifocal PNA, complicated by takotsubo cardiomyopathy 1.Acute HFrEF/takotsubo cardiomyopathy - TTE 09/10/24: - Normal left ventricular cavity size. There is normal left ventricular wall thickness. The left ventricular systolic function is moderate to severely decreased. The visually estimated ejection fraction is between 25-30%. - The entire apex, the mid anterior, mid inferior, mid anterolateral, mid inferoseptal, mid anteroseptal, and mid inferolateral segments are akinetic. - Takotsubo cardiomyopathy vs multivessel disease. - repeat TTE 09/16/24: - Mildly reduced LV ejection fraction of 45-50% with persistent wall motion abnormality - repeat TTE 09/19/24: Normal LV ejection fraction of 60-65% with impaired relaxation filling pattern - Cardiology will arrange outpatient cardiac cath - continue PO furosemide + valsartan 2.NSTEMI - troponins flat but >3000; EKG with precordial TWIs; heparin drip completed x 48hr; outpt cardiac cath as above - continue ASA, atorvastatin, metoprolol tartrate 3.Paroxysmal AF - brief episode 09/13/24; given amiodarone; pt went back into NSR; AF has not recurred - continue metoprolol tartrate 4.Multifocal PNA with sepsis - continue ceftriaxone 09/10-09/18, doxycycline 09/16-09/24, azithromycin completed 09/10-09/16, -BCx negative -wean O2 as tolerated 5.COPD exacerbation - triggered by human metapneumovirus infection; taper prednisone off by 09/28, continue nebs - SCDs; no heparinoids given hemoptysis dispo - plan eventual home but does not have PCP or insurance so cannot have VNA/PT services. Need plan for how to pay for home O2 as well In my clinical judgment, the patient requires continued inpatient hospitalization for the following reasons: hypoxia, discharge planning Quality Stroke Does the patient have a stroke diagnosis?: No VTE Prior VTE?: No VTE Risk Level:: Medical - moderate - high VTE Device Contraindication: Treatment Not Indicated VTE Drug Contraindication: N/A - Med Ordered
[2024-09-23 15:43] VITALS: BP 113/55; PULSE 76; RESP 16; TEMP 36.7; O2SAT 92
--- NOTE | 2024-09-23 15:43 | MHC.CM.PN ---
per rounds pt not ready for dc plan remains home pt has no ins and no pcp will not be able to get services if needed
[2024-09-23 18:53] VITALS: PULSE 76; RESP 18; O2SAT 95
[2024-09-23 19:47] VITALS: BP 129/58; PULSE 75; RESP 18; TEMP 36.6; O2SAT 92
[2024-09-23] MEDS: Atorvastatin Calcium 80 MG TABLET PO (20:45)
[2024-09-23] MEDS: Melatonin 3 MG TABLET 6 MG PO (23:43)
[2024-09-24] MEDS: Doxycycline Monohydrate 100 MG CAPSULE PO ×2 (01:32→13:42)
[2024-09-24 03:49] VITALS: BP 109/55; PULSE 60; RESP 18; TEMP 36.6; O2SAT 96
[2024-09-24] MEDS: Omeprazole 20 MG CAPSULE.DR PO ×2 (06:10→17:43)
[2024-09-24 06:38] LABS: MANUAL DIFF FLAG NO
[2024-09-24 06:44] LABS: Basophils Percent Auto 0.2 % (0-2); Eosinophils Absolute Auto 0.1 X10*3/uL (0.0-0.4); Eosinophils Percent Auto 0.5 % (0-4); Hematocrit 37.3 % (37.0-47.0); Hemoglobin 12.6 g/dl (12.0-16.0); Imm Gran Abs Auto 0.51 X10*3/uL (0.00-0.03); Imm Gran Pct Auto 2.6 % (0.0-0.4); Lymphocytes Absolute Auto 3.7 X10*3/uL (1.2-4.9); Lymphocytes Percent Auto 18.7 % (20-40); Mean Corpuscular HGB Conc 33.8 g/dl (31.0-35.0); Mean Corpuscular Hemoglobin 29.4 pg (27.0-33.0); Mean Corpuscular Volume 87.1 fL (80.0-98.0); Mean Platelet Volume 11.3 fL (9.4-12.3); Monocytes Absolute Auto 1.2 X10*3/uL (0.1-1.2); Monocytes Percent Auto 6.1 % (2-11); Neutrophils Absolute Auto 14.4 x10*3/uL (2.0-8.3); Neutrophils Percent Auto 71.9 % (45-73); Platelet Count 326 X10*3/uL (160-400); Red Blood Count 4.28 X10*6/uL (4.20-5.50); Red Cell Distribution Width 13.5 % (11.0-16.0)
[2024-09-24 07:06] LABS: Alanine Aminotransferase 52 U/L (0-31); Alkaline Phosphatase 70 U/L (39-117); Anion Gap 8 (12-20); Aspartate Amino Transferase 28 U/L (5-31); Bilirubin Total 1.5 mg/dL (0.0-1.0); Blood Urea Nitrogen 13 mg/dL (9-16); Calcium 8.6 mg/dL (8.4-10.2); Carbon Dioxide 32 mmol/L (22-29); Chloride 99 mmol/L (96-108); Creatinine Clr Calc Pharmacy 97.9; Estimated Glomerular Filt Rate > 60; Glucose Fasting 76 mg/dL (60-99); Potassium 3.3 mmol/L (3.3-5.1); Sodium 136 mmol/L (135-145)
[2024-09-24 08:00] VITALS: BP 113/57; PULSE 69; RESP 16; TEMP 36.2; O2SAT 92
[2024-09-24] MEDS: levalbuterol HCL 1.25 MG/3 ML VIAL.NEB INHALE ×3 (08:20→18:55)
[2024-09-24 08:24] VITALS: PULSE 69; RESP 16; O2SAT 92
[2024-09-24] MEDS: Nystatin Oral Susp 500,000 UNIT/5 ML ORAL.SUSP 500000 UNIT PO ×2 (09:39→13:43)
[2024-09-24] MEDS: Metoprolol Tartrate 12.5 MG HALFTAB PO ×2 (09:39→20:45)
[2024-09-24] MEDS: Benzonatate 100 MG CAPSULE PO ×2 (09:39→13:43)
[2024-09-24] MEDS: Furosemide 20 MG TABLET PO (09:39)
[2024-09-24] MEDS: Aspirin 81 MG TAB.CHEW PO (09:39)
[2024-09-24] MEDS: Sertraline HCL 25 MG TABLET PO (09:39)
[2024-09-24] MEDS: Valsartan 40 MG TABLET 20 MG PO ×2 (09:39→20:46)
[2024-09-24] MEDS: predniSONE 20 MG TABLET PO (09:39)
[2024-09-24] MEDS: 0.9 % Sodium Chloride Flush 3 ML SYRINGE IVFLUSH ×3 (09:40→20:46)
[2024-09-24] MEDS: guaiFENesin 200 MG/10 ML 10 ML LIQUID PO ×3 (10:28→20:46)
[2024-09-24] MEDS: Acetaminophen 325 MG TABLET 650 MG PO (14:00)
--- NOTE | 2024-09-24 15:13 | P.PNIM_ITS ---
Subjective Subjective Date of Service: 09/24/24 Interval History: feeling better ambulated in hallway, now on 2 L of oxygen, not on home O2, baseline does not have home nebulizer, denies chest pain, no palpitations, shortness of breath with exertion, no acute GI issues. Review of Systems All other system reviewed and are negative Physical Exam 2 Vital Signs: Vital Signs: Last Vital Signs Temp 97.1 F 09/24/24 08:00 Pulse 69 09/24/24 08:24 Resp 16 09/24/24 08:24 BP 113/57 L 09/24/24 08:00 Pulse Ox 92 09/24/24 08:00 O2 Del Method Nasal Cannula 09/24/24 08:00 O2 Flow Rate 2.0 09/24/24 08:00 FiO2 60 09/18/24 11:36 Oxygen Flow Rate 3 09/10/24 13:57 BMI result Body Mass Index 31.7 Const: Other: Gen: in no acute distress HEENT: sclera anicteric, moist mucus membranes Neck: supple Lungs: few bibasilar crackles Heart: regular rate and rhythm, no murmurs Abd: soft, non-tender, non-distended Ext: no edema Skin: warm/well-perfused Neuro: alert and oriented x3, no focal findings Psych: appropriate affect Objective Data Active Medications Acetaminophen (Acetaminophen 325 Mg Tablet) 650 mg PO Q6H PRN PRN Reason: Pain, Mild 1-3,fever,headache Last Admin: 09/24/24 14:00 Dose: 650 mg Documented By: KEITH Albuterol/Ipratropium (Albuterol/Iprat 2.5/0.5mg 3 Ml Ampul.Neb) 3 ml INHALE Q4H PRN PRN Reason: Wheezing Last Admin: 09/17/24 23:01 Dose: 3 ml Documented By: WELLINGTON Aspirin (Aspirin 81 Mg Tab.Chew) 81 mg PO DAILY [facility] Last Admin: 09/24/24 09:39 Dose: 81 mg Documented By: KEITH Atorvastatin Calcium (Atorvastatin Calcium 80 Mg Tablet) 80 mg PO BEDTIME [facility] Last Admin: 09/23/24 20:45 Dose: 80 mg Documented By: LYSRufino Benzonatate (Benzonatate 100 Mg Capsule) 100 mg PO TID [facility] Last Admin: 09/24/24 13:43 Dose: 100 mg Documented By: KEITH Calcium Carbonate (Calcium Carbonate 750 Mg Tab.Chew) 750 mg PO Q4H PRN PRN Reason: Heartburn Docusate Sodium (Docusate Sodium 100 Mg Capsule) 100 mg PO BID PRN PRN Reason: Constipation Last Admin: 09/15/24 13:56 Dose: 100 mg Documented By: RIOSCSALENA Doxycycline Monohydrate (Doxycycline Monohydrate 100 Mg Capsule) 100 mg PO Q12H [facility] Last Admin: 09/24/24 13:42 Dose: 100 mg Documented By: KEITH Furosemide (Furosemide 20 Mg Tablet) 20 mg PO BID@0900,1800 [facility]; Protocol Last Admin: 09/24/24 09:39 Dose: 20 mg Documented By: KEITH Guaifenesin (Guaifenesin 200 Mg/10 Ml 10 Ml Liquid) 10 ml PO Q4H PRN PRN Reason: Cough Last Admin: 09/24/24 13:43 Dose: 10 ml Documented By: KEITH Guaifenesin (Guaifenesin 200 Mg/10 Ml 10 Ml Liquid) 10 ml PO Q4H PRN PRN Reason: Cough Levalbuterol HCl (Levalbuterol Hcl 1.25 Mg/3 Ml Vial.Neb) 1.25 mg INHALE RTID [facility] Last Admin: 09/24/24 15:04 Dose: 1.25 mg Documented By: KEITH Magnesium Hydroxide (Milk Of Magnesia 30 Ml Oral.Susp) 30 ml PO DAILY PRN PRN Reason: Constipation Melatonin (Melatonin 3 Mg Tablet) 6 mg PO BEDTIME PRN PRN Reason: Insomnia Last Admin: 09/23/24 23:43 Dose: 6 mg Documented By: RASHAWN Metoprolol Tartrate (Metoprolol Tartrate 12.5 Mg Halftab) 12.5 mg PO BID [facility]; Protocol Last Admin: 09/24/24 09:39 Dose: 12.5 mg Documented By: KEITH Nystatin (Nystatin Oral Susp 500,000 Unit/5 Ml Oral.Susp) 500,000 unit PO QID [facility]; Protocol Last Admin: 09/24/24 13:43 Dose: 500,000 unit Documented By: KEITH Omeprazole (Omeprazole 20 Mg Capsule.Dr) 20 mg PO BID@4830,1630 [facility] Last Admin: 09/24/24 06:10 Dose: 20 mg Documented By: RASHAWN Prednisone (Prednisone 20 Mg Tablet) 20 mg PO DAILY [facility]; Taper Stop: 09/28/24 08:59 Last Admin: 09/24/24 09:39 Dose: 20 mg Documented By: KEITH Senna/Docusate Sodium (Sennosides/Docusate Sodium Tablet) 2 tab PO BID [facility] Last Admin: 09/24/24 10:01 Dose: Not Given Documented By: KEITH Non-Admin Reason: Patient Refused Sertraline HCl (Sertraline Hcl 25 Mg Tablet) 25 mg PO DAILY [facility] Last Admin: 09/24/24 09:39 Dose: 25 mg Documented By: KEITH Sodium Chloride (0.9 % Sodium Chloride Flush 3 Ml Syringe) 3 ml IVFLUSH QSHIFT [facility] Last Admin: 09/24/24 09:40 Dose: 3 ml Documented By: KEITH Valsartan (Valsartan 40 Mg Tablet) 20 mg PO BID [facility]; Protocol Last Admin: 09/24/24 09:39 Dose: 20 mg Documented By: KEITH Labs 09/24/24 05:27 09/24/24 05:27 Labs: Laboratory Results - last 24 hr 09/24/24 05:27 MCV 87.1 MCH 29.4 MCHC 33.8 RDW 13.5 Plt Count 326 MPV 11.3 Immature Gran % (Auto) 2.6 H Neut % (Auto) 71.9 Lymph % (Auto) 18.7 L [place] % (Auto) 6.1 Eos % (Auto) 0.5 Baso % (Auto) 0.2 Lymph # (Auto) 3.7 [place] # (Auto) 1.2 Eos # (Auto) 0.1 Baso # (Auto) 0.0 Abs Immat Gran (auto) 0.51 H Absolute Neuts (auto) 14.4 H Absolute Nucleated RBC 0.000 Nucleated RBC % (auto) 0.0 Anion Gap 8 L Estim Creat Clear Calc 97.9 Estimated GFR > 60 Fasting Glucose 76 Calcium 8.6 Total Bilirubin 1.5 H AST 28 ALT 52 H Alkaline Phosphatase 70 Total Protein 5.0 L Albumin 3.0 L Assessment and Plan (1) Hemoptysis: Status: Acute (2) PAF (paroxysmal atrial fibrillation): Status: Acute (3) COPD exacerbation: Status: Acute (4) Multifocal pneumonia: Status: Acute (5) Acute hypoxemic respiratory failure: Status: Acute Plan 63yo F with hx tobacco abuse, COPD not on home O2; admitted for hypoxia and sepsis due to multifocal PNA, complicated by takotsubo cardiomyopathy acute HFrEF/takotsubo cardiomyopathy - TTE 09/10/24: - Normal left ventricular cavity size. There is normal left ventricular wall thickness. The left ventricular systolic function is moderate to severely decreased. The visually estimated ejection fraction is between 25-30%. - The entire apex, the mid anterior, mid inferior, mid anterolateral, mid inferoseptal, mid anteroseptal, and mid inferolateral segments are akinetic. - Takotsubo cardiomyopathy vs multivessel disease. - repeat TTE 09/16/24: - Mildly reduced LV ejection fraction of 45-50% with persistent wall motion abnormality - repeat TTE 09/19/24: Normal LV ejection fraction of 60-65% with impaired relaxation filling pattern - Cardiology will arrange outpatient cardiac cath - continue PO furosemide + valsartan NSTEMI - troponins flat but >3000; heparin drip completed x 48hr; outpt cardiac cath as above - continue ASA, atorvastatin, metoprolol tartrate paroxysmal AF - brief episode 09/13/24; given amiodarone; pt went back into NSR; AF has not recurred - did not tolerate anticoagulation with enoxaparin- developed hemoptysis, which has resolved - continue metoprolol tartrate multifocal PNA with sepsis - continue ceftriaxone 09/10-09/18, doxycycline 09/16-09/24, azithromycin completed 09/10-09/16, BCx negative, PCT low, MRSA neg, urinary antigens for Legionella and pneumococcus negative last day of doxy today COPD exacerbation - triggered by human metapneumovirus infection; taper prednisone off by 09/28, continue nebs, not on home nebulizer acute hypoxic respiratory failure - wean O2 as tolerated but need home O2 [currently 2L at rest/4L with ambulation] thrush - continue oral nystatin started 09/16 possible RUQ mass - artifactual; contrasted CT A/P does not demonstrate mass adjustment disorder with anxious mood - started sertraline VTE ppx - SCDs; no heparin given hemoptysis dispo - plan eventual home but does not have PCP or insurance so cannot have VNA/PT services. CM arranging for safe disposition In my clinical judgment, the patient requires continued inpatient hospitalization for the following reasons: hypoxia, discharge planning Quality Stroke Does the patient have a stroke diagnosis?: No VTE Prior VTE?: No VTE Risk Level:: Medical - moderate - high VTE Device Contraindication: Treatment Not Indicated VTE Drug Contraindication: N/A - Med Ordered
[2024-09-24 15:32] VITALS: BP 135/63; PULSE 78; RESP 18; TEMP 36.4; O2SAT 91
--- NOTE | 2024-09-24 16:17 | MHC.CM.PN ---
Met with Patient and her dtr in room 359. They are willing to private pay for oxygen. They are concerned about cost of medications. MD will reconcile Medlist and provide to CM. [facility] will run cost tomorrow. Financial chamber worker is following. DP Home with O2 and prescriptions medication. The patient was provided information and instructed to go to [facility] until a PCP is secured.
[2024-09-24] MEDS: Potassium Chloride ER 20 MEQ TAB.ER.PRT PO (17:43)
[2024-09-24 18:55] VITALS: PULSE 78; RESP 18; O2SAT 95
[2024-09-24 19:49] VITALS: BP 119/59; PULSE 80; RESP 18; TEMP 36.2; O2SAT 93
[2024-09-24] MEDS: Sennosides/Docusate Sodium TABLET 2 TAB PO (20:45)
[2024-09-24] MEDS: Atorvastatin Calcium 80 MG TABLET PO (20:46)
[2024-09-24] MEDS: Melatonin 3 MG TABLET 6 MG PO (23:48)
[2024-09-25] MEDS: Doxycycline Monohydrate 100 MG CAPSULE PO (01:55)
[2024-09-25 02:58] VITALS: BP 130/63; PULSE 83; RESP 18; TEMP 36; O2SAT 94
[2024-09-25] MEDS: Omeprazole 20 MG CAPSULE.DR PO (05:45)
--- NOTE | 2024-09-25 05:49 | PC.NURSE ---
IV site was outdated so was removed. Patient does not want another one, has nothing IV. Dr Rendon made aware.
[2024-09-25 06:48] VITALS: BP 110/59; PULSE 79; RESP 16; TEMP 36.6; O2SAT 93
[2024-09-25] MEDS: Valsartan 40 MG TABLET 20 MG PO (07:26)
[2024-09-25] MEDS: predniSONE 20 MG TABLET PO (07:26)
[2024-09-25] MEDS: Potassium Chloride ER 20 MEQ TAB.ER.PRT PO (07:27)
[2024-09-25] MEDS: Sertraline HCL 25 MG TABLET PO (07:27)
[2024-09-25] MEDS: Furosemide 20 MG TABLET PO (07:27)
[2024-09-25] MEDS: Aspirin 81 MG TAB.CHEW PO (07:27)
[2024-09-25] MEDS: Sennosides/Docusate Sodium TABLET 2 TAB PO (07:27)
[2024-09-25] MEDS: guaiFENesin 200 MG/10 ML 10 ML LIQUID PO (07:28)
[2024-09-25] MEDS: Metoprolol Tartrate 12.5 MG HALFTAB PO (07:28)
[2024-09-25] MEDS: levalbuterol HCL 1.25 MG/3 ML VIAL.NEB INHALE ×2 (07:53→14:12)
[2024-09-25 07:58] VITALS: PULSE 75; RESP 16; O2SAT 95
--- NOTE | 2024-09-25 11:22 | MHC.CM.PN ---
DP: PT HAS BEEN MEDICALLY CLEARED FOR DC HOME, NO SERVICES. PT'S DAUGHTER AT BEDSIDE AND IS PROVIDING SUPPORT AND ASSIST TO MOTHER WITH GETTING INSURANCE/PCP. PT WILL DC WITH NEW HOME 02. DAUGHTER WILL TRANSPORT HOME.
--- NOTE | 2024-09-25 11:24 | PM.DS ---
DS: Providers Provider Date of Service: 09/25/24 Date of admission: 09/10/24 18:34 Date of discharge: 09/25/24 Primary care physician: None Physician Consults: 09/10/24 15:58 Consult to Cardiology Routine Consulting Provider: [facility] Reason for consultation: NSTEMI 09/11/24 08:47 Consult to Pulmonology Routine Consulting Provider: [facility] Reason for consultation: Acute hypoxemic respiratory failure -multifactorial Has provider been notified: No 09/16/24 14:44 Consult to Gastroenterology Routine Consulting Provider: [facility] Reason for consultation: Masslike density in the right upper quadranton ct chest Has provider been notified: No DS: Diagnosis Discharge Diagnosis (1) Hemoptysis: Status: Acute (2) PAF (paroxysmal atrial fibrillation): Status: Acute (3) COPD exacerbation: Status: Acute (4) Multifocal pneumonia: Status: Acute (5) Acute hypoxemic respiratory failure: Status: Acute DS: Summary Hospital Course Hospital Course: History of presenting illness: Date of Service: 09/10/24 [facility] Chief Complaint: Cough, chest tightness, shortness of breath 63 yo female with PMH of heavy smoking though did quit 10 to 12 years ago, COPD not on home O2 who traveled to [place] (08/29 to 09/03) with her boyfriend who is also ill and was in our ER with reported negative work up. The patient notes over the past few days she has been having chills, dyspnea, feels congested and her chest is tight with coarse productive cough. Today after taking him home and situating him she notes she felt worse and more dyspneic with associated chest tightness. Dyspnea worse with exertion. She presented to an urgent care where oximetry was 79% on room air and was subsequently transferred to the ED for further evaluation and management. EN route, EMS gave a DuoNeb and placed her on 5 L nasal cannula satting 88%. Due to increased work of breathing and persistent hypoxia, patient was transitioned to high-flow O2 and is now satting 91%. Since arrival, patient has been tachycardic to 126, in sinus rhythm, and tachypneic. Blood pressure stable, afebrile. She has a leukocytosis of 23.5. H/H 17.1/50.1%, baseline unknown. Renal function electrolyte levels normal. Initial lactic acid 4.2, repeat 2.8. AST 54, ALT 33. Initial troponin 3385, repeat 3195. BNP 805. CRP 2.28. Procalcitonin 0.04. Urinalysis with 2+ leukocytes, positive urinary sediment, trace bacteria. Negative for COVID-19, RSV, influenza. Full viral respiratory panel pending. CTA of the chest negative for pulmonary embolism but shows mild to moderate pulmonary edema with multifocal pneumonia though possible given history of severe emphysema. EKG shows sinus tachycardia with T-wave inversions in the precordial leads. No ELVIN. Cardiology evaluated patient at bedside and performed bedside echocardiogram which he reports shows at least moderate LV systolic dysfunction with classic takotsubo like changes. In the ED, has been given IV ceftriaxone, IV Levaquin, IV methylprednisolone, albuterol/DuoNeb and has been started on heparin drip per protocol at the recommendation of Cardiology. Hospital course: 63yo F with hx tobacco abuse, COPD not on home O2; admitted for hypoxia and sepsis due to multifocal PNA, complicated by takotsubo cardiomyopathy Acute HFrEF/takotsubo cardiomyopathy admitted to telemetry unit treated with IV Lasix and valsartan and followed closely by Cardiology with repeat echocardiograms - TTE 09/10/24: Showed - Normal left ventricular cavity size. There is normal left ventricular wall thickness. The left ventricular systolicfunction is moderate to severely decreased. The visually estimated ejection fraction is between 25-30%. - The entire apex, the mid anterior, mid inferior, mid anterolateral, mid inferoseptal, mid anteroseptal, and mid inferolateral segments are akinetic. - Takotsubo cardiomyopathy vs multivessel disease. - repeat TTE 09/16/24: - Mildly reduced LV ejection fraction of 45-50% with persistent wall motion abnormality - repeat TTE 09/19/24: Normal LV ejection fraction of 60-65% with impaired relaxation filling pattern Since patient is hemodynamically stable with significant improvement in shortness of breath she is being discharged home on by mouth Lasix and valsartan and recommended outpatient follow-up with Cardiology for possible cardiac catheterization as outpatient. NSTEMI treated with 48 hours of IV heparin, aspirin, Lipitor and metoprolol recommend outpatient Cardiology follow-up for cardiac catheterization Paroxysmal AF noted to have brief episode 09/13/24; given amiodarone; pt went back into NSR; AF has not recurred, did not tolerate anticoagulation with enoxaparin, developed hemoptysis, which has resolved continue metoprolol tartrate. multifocal PNA with sepsis finish antibiotic course with ceftriaxone and doxycycline blood cultures negative, PCT low, MRSA neg, urinary antigens for Legionella and pneumococcus negative. COPD exacerbation - triggered by human metapneumovirus infection, recommend DuoNeb 3 times a day , Spiriva and albuterol rescue inhaler, no further steroids upon discharge Acute hypoxic respiratory failure qualifies for 2 L of home oxygen, further tapering as per PCP/pulmonology to be arranged once patient has insurance. Adjustment disorder with anxious mood continue sertraline. Time Attestation Discharge Coordination Time (in mins): 40 Quality: Safe Use of Opioids Does Pt have an Active Cancer Diagnosis on the Problem List?: No Quality: Stroke Does the patient have a stroke diagnosis?: No Physical Exam Vital Signs: Vital Signs: Last Vital Signs Temp 97.9 F 09/25/24 06:48 Pulse 75 09/25/24 07:58 Resp 16 09/25/24 07:58 BP 110/59 L 09/25/24 06:48 Pulse Ox 93 09/25/24 06:48 O2 Del Method Nasal Cannula 09/25/24 06:48 O2 Flow Rate 2 09/25/24 06:48 FiO2 60 09/18/24 11:36 Oxygen Flow Rate 3 09/10/24 13:57 BMI result Body Mass Index 31.7 Const: Other: Gen: in no acute distress HEENT: sclera anicteric, moist mucus membranes Neck: supple Lungs: few bibasilar crackles Heart: regular rate and rhythm, no murmurs Abd: soft, non-tender, non-distended Ext: no edema Skin: warm/well-perfused Neuro: alert and oriented x3, no focal findings Psych: appropriate affect Discharge Plan Discharge Anticipated Discharge Date/Time: 09/25/24 11:19 Patient Disposition: Home, Self-Care Discharge Diagnosis: NSTEMI Multifocal pneumonia Cardiomyopathy COPD exacerbation Acute hypoxic respiratory failure Referrals: Physician,None [Primary Care Provider] - 1 Week Discharge Medications: New atorvastatin 80 mg Tablet 80 mg PO BEDTIME Qty: 30 0RF sertraline 25 mg Tablet 25 mg PO DAILY Qty: 30 0RF aspirin 81 mg Tablet,Chewable 81 mg PO DAILY Qty: 30 0RF metoprolol tartrate 25 mg tablet 12.5 mg PO BID Qty: 30 0RF omeprazole 20 mg Capsule,Delayed Release(Dr/Ec) 20 mg PO DAILY Qty: 30 0RF valsartan 40 mg Tablet 20 mg PO BID Qty: 60 0RF Protocol: Hold for SBP< HOLD for SBP < : 90 guaifenesin 100 mg/5 mL Liquid 200 mg PO TID Qty: 473 0RF Rx Instructions: take for next 3-4 days furosemide 20 mg Tablet 20 mg PO DAILY Qty: 30 0RF Protocol: Hold for SBP< HOLD for SBP < : 90 ipratropium-albuterol 0.5 mg-3 mg(2.5 mg base)/3 mL Solution For Nebulization 3 ml inhalation TID Qty: 90 0RF Spiriva Respimat 2.5 mcg/actuation Mist 2 puff inhalation RDAILY Qty: 4 0RF albuterol sulfate [Ventolin HFA] 90 mcg/actuation Hfa Aerosol Inhaler 2 puff inhalation RQ4H PRN (Reason: sob) Qty: 8.5 0RF Discharge Orders: Discharge Order (Routine); Ordered 09/25/24 Ordered By: Yessy Mukherjee Diet: Advance to usual diet Activity on Discharge: As tolerated Stand Alone Forms: Patient Portal Discharge page Print Language: Estonian Care Plan Goals: Cardiomyopathy improved take all medications as prescribed AFib no recurrent episodes follow-up with cardiology for Holter monitor Acute on chronic COPD exacerbation take Spiriva 1 puff at bedtime, use DuoNeb updraft 3 times a day and rescue inhaler albuterol as needed for shortness of breath Non ST-elevation [place] outpatient follow-up with admitting counselor for cardiac catheterization Adjustment disorder/anxiety take Zoloft Health Concerns: COPD Plan of Treatment: Arrange for primary care physician Follow-up with admitting counselor Dr. Viadl 2-4 weeks Assessment: As above Discharge Date/Time: 09/25/24 14:51
[2024-09-25 11:25] VITALS: PULSE 87; PULSE 91; PULSE 92; O2SAT 88; O2SAT 93
--- NOTE | 2024-09-25 11:46 | PC.RT ---
pt re-evaluated for Home Oxygen. pt will need 1 at rest and 2 with ambulation. Pt walked Appx. 80-100 with no sudden acute desaturations. Will be dc'd today with [employer] as her DME.
[2024-09-25 14:14] VITALS: PULSE 86; RESP 18; O2SAT 95
== END 2024-09-25 14:51 | disposition home or self-care (01) | DRG 871 ==
LOC: HO.ED 16:00 → HO.EDOVER 18:46 → HO.IMC 19:19 → HO.S3 09-22 07:45
PROVIDERS: Family Medicine; Hospitalist; Internal Medicine; Student in an Organized Health Care Education/Training Program; Admitting Provider Physician Assistant; Emergency Provider Emergency Medicine; Visit Provider Hospitalist
DX: A41.9 Sepsis, unspecified organism (principal); I21.4 Non-ST elevation (NSTEMI) myocardial infarction; J18.9 Pneumonia, unspecified organism; J96.01 Acute respiratory failure with hypoxia; I50.21 Acute systolic (congestive) heart failure; I51.81 Takotsubo syndrome; E87.21 Acute metabolic acidosis; R04.2 Hemoptysis; B37.0 Candidal stomatitis; I48.0 Paroxysmal atrial fibrillation; G72.89 Other specified myopathies; J06.9 Acute upper respiratory infection, unspecified; B97.81 Human metapneumovirus as the cause of diseases classified elsewhere; J43.9 Emphysema, unspecified; Z20.822 Contact with and (suspected) exposure to COVID-19; Z87.891 Personal history of nicotine dependence; Z79.82 Long term (current) use of aspirin; Z79.899 Other long term (current) drug therapy
CPT/HCPCS: 0241U; 36415; 71045; 71250; 71275; 74177; 76705; 80048; 80053; 80076; 81001; 81003; 82803; 83605; 83690; 83735; 83880; 84145; 84484; 85025; 85027; 85610; 85652; 85730; 86021; 86038; 86039; 86140; 86200; 86713; 86850; 86900; 86901; 87040; 87070; 87086; 87205; 87449; 87633; 87640; 87641; 87899; 93005; 93306; 93308; 94640; 97116; 97161; 99285; J0282; J0283; J0456; J0696; J1160; J1644; J1650; J1940; J2919; J3475; J7120; Q9957; Q9967

== ENCOUNTER → 2024-09-10 14:01 | Outpatient (BNV) | payer SELFPAY | PROVIDERS: Emergency Provider Emergency Medicine; PCP Internal Medicine; Visit Provider Radiology Diagnostic Radiology | DX: I51.7 Cardiomegaly (principal); J90 Pleural effusion, not elsewhere classified; I26.99 Other pulmonary embolism without acute cor pulmonale; J81.0 Acute pulmonary edema; J18.9 Pneumonia, unspecified organism | CPT/HCPCS: 71045; 71275 ==

== ENCOUNTER → 2024-09-10 15:03 | Outpatient (BNV) | payer SELFPAY | PROVIDERS: Emergency Provider Emergency Medicine; Visit Provider Internal Medicine Cardiovascular Disease | DX: I21.4 Non-ST elevation (NSTEMI) myocardial infarction (principal); I42.9 Cardiomyopathy, unspecified | CPT/HCPCS: 99223 ==

== ENCOUNTER 2024-09-10 18:34 | Outpatient (BNV) | payer SELFPAY | END 2024-09-19 13:00 | PROVIDERS: Admitting Provider Physician Assistant; Emergency Provider Emergency Medicine; Visit Provider Internal Medicine Cardiovascular Disease | DX: I42.8 Other cardiomyopathies (principal) | CPT/HCPCS: 93308; 93321 ==

== ENCOUNTER 2024-09-10 18:34 | Outpatient (BNV) | payer SELFPAY | END 2024-09-18 09:14 | PROVIDERS: Admitting Provider Physician Assistant; Emergency Provider Emergency Medicine; Visit Provider Radiology Diagnostic Radiology | DX: J84.9 Interstitial pulmonary disease, unspecified (principal); J98.11 Atelectasis | CPT/HCPCS: 71045 ==

== ENCOUNTER 2024-09-10 18:34 | Outpatient (BNV) | payer SELFPAY | END 2024-09-13 01:56 | PROVIDERS: Admitting Provider Physician Assistant; Emergency Provider Emergency Medicine; Visit Provider Internal Medicine Cardiovascular Disease | DX: I48.91 Unspecified atrial fibrillation (principal); I25.2 Old myocardial infarction | CPT/HCPCS: 93010 ==

== ENCOUNTER 2024-09-10 18:34 | Outpatient (BNV) | payer SELFPAY | END 2024-09-16 07:00 | PROVIDERS: Admitting Provider Physician Assistant; Emergency Provider Emergency Medicine; Visit Provider Internal Medicine Cardiovascular Disease | DX: I42.8 Other cardiomyopathies (principal) | CPT/HCPCS: 93308 ==

== ENCOUNTER 2024-09-10 18:34 | Outpatient (BNV) | payer SELFPAY | END 2024-09-14 11:18 | PROVIDERS: Admitting Provider Physician Assistant; Emergency Provider Emergency Medicine; Visit Provider Radiology Diagnostic Radiology | DX: R10.11 Right upper quadrant pain (principal); D35.02 Benign neoplasm of left adrenal gland | CPT/HCPCS: 71250 ==

== ENCOUNTER 2024-09-10 18:34 | Outpatient (BNV) | payer SELFPAY | END 2024-09-19 08:57 | PROVIDERS: Admitting Provider Physician Assistant; Emergency Provider Emergency Medicine; Visit Provider Radiology Diagnostic Radiology | DX: R10.31 Right lower quadrant pain (principal) | CPT/HCPCS: 74177 ==

== ENCOUNTER 2024-09-10 18:34 | Outpatient (BNV) | payer SELFPAY | END 2024-09-16 13:50 | PROVIDERS: Admitting Provider Physician Assistant; Emergency Provider Emergency Medicine; Visit Provider Radiology Diagnostic Radiology | DX: J84.9 Interstitial pulmonary disease, unspecified (principal) | CPT/HCPCS: 71045; 76705 ==

== ENCOUNTER 2024-09-10 18:34 | Outpatient (BNV) | payer SELFPAY | END 2024-09-12 07:22 | PROVIDERS: Admitting Provider Physician Assistant; Emergency Provider Emergency Medicine; Visit Provider Radiology Diagnostic Radiology | DX: J84.9 Interstitial pulmonary disease, unspecified (principal) | CPT/HCPCS: 71045 ==

== ENCOUNTER → 2024-09-10 18:34 | Outpatient (BNV) | payer SELFPAY | PROVIDERS: Admitting Provider Physician Assistant; Emergency Provider Emergency Medicine; Visit Provider Internal Medicine Pulmonary Disease | DX: J96.01 Acute respiratory failure with hypoxia (principal); J44.1 Chronic obstructive pulmonary disease with (acute) exacerbation; I42.9 Cardiomyopathy, unspecified | CPT/HCPCS: 99222 ==

== ENCOUNTER → 2024-09-10 18:34 | Outpatient (BNV) | payer SELFPAY | PROVIDERS: Admitting Provider Physician Assistant; Emergency Provider Emergency Medicine; Visit Provider Internal Medicine | DX: I48.0 Paroxysmal atrial fibrillation (principal); J44.1 Chronic obstructive pulmonary disease with (acute) exacerbation; J18.9 Pneumonia, unspecified organism | CPT/HCPCS: 99223; 99231; 99232; 99233; 99499 ==

== ENCOUNTER → 2024-10-03 09:41 | Outpatient (REF) | payer MEDICARE, SELFPAY ==
--- OUTSIDE RECORDS SUMMARY | 2024-10-03 10:56 | XMS_ITS | Clinical Summary ---
Author Organization [email or web address] Address [address] [place] [address] [address] [place] [address] Care Team Providers Care Edge Grinder Name Role Phone Unavailable Primary Care Provider Unavailabl e Encounters Date Type Department Care Team Description 09/30/2024 Telephone [facility] MEDICINE [address] [place] [phone] Roque Schroeder MD New patient appt. from Last 3 Months Social History Tobacco Use Types Packs/Day Years Used Date Smoking Tobacco: Never Assessed Comments Unknown Sex and Gender Information Value Date Recorded Sex Assigned at Not on file Legal Sex Female 3:52 PM EDT Gender Identity Not on file Sexual Orientation Not on file Plan of Treatment Upcoming Encounters Date Type Department Care Team (Late st Contact Info) Description 01/14/2025 10:15 AM EDT Office Visit [facility] MEDICINE [address] [place] [phone] Samina Fisher MD [address] [place] [phone] Health Maintenance Due Date Last Done Comments CT Colonography 1958 Colonoscopy 1958 Colorectal Cancer Screening 1958 Depression Screening 1958 FIT DNA/Cologuard 1958 FIT 1958 FOBT 1958 SDOH Screening 1958 Sigmoidoscopy 1958 Alcohol/Substance Use Screening 1970 Tobacco Screening 1970 Hepatitis C Screening 1976 DTaP/Tdap/Td Vaccines (1 - Tdap) 1977 Pap Smear 10/06/1979 Cervical Cancer Screening 1988 HPV/Cotest 1988 Mammogram 1998 Pneumococcal Vaccine: 50+ Ye ars (1 of 1 - PCV) 2008 Zoster Vaccines (1 of 2) 2008 COVID-19 Vaccine (2023-2 5 season) 2024 Influenza Vaccine (#1) 2024 RSV Patients and Pa tients Aged 60 years or older (1 - 1-dose 75+ series) 2033 HIB Vaccines Aged Out No longer eligi ble based on patient's age to complete this topic HPV Vaccines Aged Out No longer eligi ble based on patient's age to complete this topic Hepatitis A Vaccines Aged Out No long er eligible based on patient's age to complete this topic Hepatitis B Vaccines Aged Out No long er eligible based on patient's age to complete this topic IPV Vaccines Aged Out No longer eligi ble based on patient's age to complete this topic Meningococcal Vaccine Aged Out No edy rebecca eligible based on patient's age to complete this topic RSV under 20 months Aged Out No longe r eligible based on patient's age to complete this topic Rotavirus Vaccines Aged Out No longer eligible based on patient's age to complete this topic Insurance [facility] F[facility]
--- OUTSIDE RECORDS SUMMARY | 2024-10-03 10:56 | XMS_ITS | Encounter Summary ---
Author Organization [employer] Address [address] [place] [address] [place] [address] Care Team Providers Care Transportation Equipment Painter Name Role Phone Unavailable Primary Care Provider Unavailabl e Reason for Visit * Reason Onset Date Comments New patient appt. 09/30/2024 Encounter Details Date Type Department Care Team (Late st Contact Info) Description 09/30/2024 Telephone [facility] MEDICINE [address] [place] [address] [phone] Roque Schroeder MD [address] [place], [place] [phone] New patient appt. Social History Tobacco Use Types Packs/Day Years Used Date Smoking Tobacco: Never Assessed Comments Unknown Sex and Gender Information Value Date Recorded Sex Assigned at Not on file Legal Sex Female 3:52 PM EDT Gender Identity Not on file Sexual Orientation Not on file documented as of this encounter Miscellaneous Notes * Telephone Encounter - Judi Choi - 09/30/2024 4:18 PM EDT Incoming call from pt to book CIRCULATING NURSE appt. Patient booked for 01/14/[address] [place]. Medical conditions reported: COPD, recent heart attack. Appt reminder sent via text and mail. documented in this encounter Plan of Treatment Upcoming Encounters Date Type Department Care Team (Late st Contact Info) Description 01/14/2025 10:15 AM EDT Office Visit [facility] MEDICINE [address], [place] [phone] Samina Fisher MD [address] [place], [place] [phone] documented as of this encounter Visit Diagnoses Not on filedocumented in this encounter
== END ==
LOC: HO.CARD 09:41
PROVIDERS: Visit Provider Internal Medicine Cardiovascular Disease
DX: I21.4 Non-ST elevation (NSTEMI) myocardial infarction (principal); I51.81 Takotsubo syndrome; I42.9 Cardiomyopathy, unspecified; I48.0 Paroxysmal atrial fibrillation
CPT/HCPCS: 93242

== ENCOUNTER → 2024-10-03 09:44 | Outpatient (BNV) | payer MEDICARE, SELFPAY | PROVIDERS: Visit Provider Internal Medicine | DX: I47.10 Supraventricular tachycardia, unspecified (principal) | CPT/HCPCS: 93244 ==

== ENCOUNTER 2024-10-04 11:20 | Outpatient (AMB) | payer MEDICARE, SELFPAY ==
--- NOTE | 2024-10-04 11:30 | MHC.PC.OV ---
Vital Signs 10/04/24 11:35 Height 5 ft 4 in Weight 163 lb BMI 28.0 BP 110/68 Blood Pressure Location Lt brachial Position Sitting Respiration 12 Pulse 65 Pulse Source Pulse Oximeter Temp 97.6 F Temp Source Oral Pulse Oximetry (%) 98 Oxygen Delivery Method Room Air Intake Visit Reasons: HDF/Heart Attack/ COPD Intake Note: New patient to establish care Rn House Supervisor Required: No Allergies codeine Allergy (Verified 10/04/24 11:49) Unknown Medication List - Last Reconciled 10/04/24 by Jonna Arteaga, CUBE MACHINE TENDER- albuterol sulfate 90 mcg/actuation (Ventolin HFA) 2 puffs inhalation RQ4H PRN aspirin 81 mg PO DAILY atorvastatin 80 mg PO BEDTIME furosemide 20 mg See Protocol PO DAILY guaifenesin 200 mg (10 mL) PO TID ipratropium-albuterol 0.5 mg-3 mg(2.5 mg base)/3 mL 3 mL inhalation TID metoprolol tartrate 12.5 mg (1/2 x 25 mg) PO BID omeprazole 20 mg PO DAILY sertraline 25 mg PO DAILY tiotropium bromide 2.5 mcg/actuation (Spiriva Respimat) 2 puffs inhalation RDAILY valsartan 20 mg See Protocol PO BID Tobacco use date assessed: 10/04/24 Fall risk assessment: No Falls in past year Last assessed Fall Risk: 10/04/24 Dental Screening Dental Screen Date: 10/04/24 Did you have a dental visit in the last 12 months?: No Did you have a dental problem in the last 6 months where you did not have access to dental care?: No Was dental information given to patient?: Patient has dentist HPI HPI Comments History of Present Illness Details Here today for a Transitional Care Management Visit Discharge summary reviewed. New patient to me here to also est PCP; no PCP in years, no insurance for years. 63 yo female with PMH L adrenal adenoma 9mm (CT 08/2024) of heavy smoking though did quit 10 to 12 years ago, COPD not on home O2, admitted for hypoxia and sepsis due to multifocal PNA, complicated by takotsubo cardiomyopathy. Acute HFrEF/takotsubo cardiomyopathy admitted to telemetry unit treated with IV Lasix and valsartan and followed closely by Cardiology with repeat echocardiograms - TTE 09/10/24: Showed - Normal left ventricular cavity size. There is normal left ventricular wall thickness. The left ventricular systolicfunction is moderate to severely decreased. The visually estimated ejection fraction is between 25-30%. - The entire apex, the mid anterior, mid inferior, mid anterolateral, mid inferoseptal, mid anteroseptal, and mid inferolateral segments are akinetic. - Takotsubo cardiomyopathy vs multivessel disease. - repeat TTE 09/16/24: - Mildly reduced LV ejection fraction of 45-50% with persistent wall motion abnormality - repeat TTE 09/19/24: Normal LV ejection fraction of 60-65% with impaired relaxation filling pattern NSTEMI treated with 48 hours of IV heparin, aspirin, Lipitor and metoprolol recommend outpatient Cardiology follow-up for cardiac catheterization Paroxysmal AF noted to have brief episode 09/13/24; given amiodarone; pt went back into NSR; AF has not recurred, did not tolerate anticoagulation with enoxaparin, developed hemoptysis, which has resolved continue metoprolol tartrate. multifocal PNA with sepsis finish antibiotic course with ceftriaxone and doxycycline blood cultures negative, PCT low, MRSA neg, urinary antigens for Legionella and pneumococcus negative. COPD exacerbation - triggered by human metapneumovirus infection, recommend DuoNeb 3 times a day , Spiriva and albuterol rescue inhaler, no further steroids upon discharge Acute hypoxic respiratory failure qualifies for 2 L of home oxygen, further tapering as per PCP/pulmonology to be arranged once patient has insurance. Adjustment disorder with anxious mood continue sertraline. Discharge Diagnosis: NSTEMI Multifocal pneumonia Cardiomyopathy COPD exacerbation Acute hypoxic respiratory failure New atorvastatin 80 mg Tablet 80 mg PO BEDTIME Qty: 30 0RF sertraline 25 mg Tablet 25 mg PO DAILY Qty: 30 0RF aspirin 81 mg Tablet,Chewable 81 mg PO DAILY Qty: 30 0RF metoprolol tartrate 25 mg tablet 12.5 mg PO BID Qty: 30 0RF omeprazole 20 mg Capsule,Delayed Release(Dr/Ec) 20 mg PO DAILY Qty: 30 0RF valsartan 40 mg Tablet 20 mg PO BID Qty: 60 0RF Protocol: Hold for SBP< HOLD for SBP < : 90 guaifenesin 100 mg/5 mL Liquid 200 mg PO TID Qty: 473 0RF Rx Instructions: take for next 3-4 days furosemide 20 mg Tablet 20 mg PO DAILY Qty: 30 0RF Protocol: Hold for SBP< HOLD for SBP < : 90 ipratropium-albuterol 0.5 mg-3 mg(2.5 mg base)/3 mL Solution For Nebulization 3 ml inhalation TID Qty: 90 0RF Spiriva Respimat 2.5 mcg/actuation Mist 2 puff inhalation RDAILY Qty: 4 0RF albuterol sulfate [Ventolin HFA] 90 mcg/actuation Hfa Aerosol Inhaler 2 puff inhalation RQ4H PRN (Reason: sob) Qty: 8.5 0RF Admission Date: 09/10/24 Discharge Date: 09/25/24 [place] [facility] [place] of interactive contact with Nurse Navigator: as documented in chart Pending diagnostic tests/treatments: Pending consults: DME: 02 with [facility] PT/OT/INSTRUMENT REPAIR SUPERVISOR: Home Health Aide/SPRAYER AUTOMATIC SPRAY MACHINE: Community Resources: Asst Living: Home Health: Hospice: Support group: Other: Referrals: Cards - may need cardiac cath Pulm Medications reconciled & updated. During today TCM visit, the d/c summary was reviewed, along with the need for or follow-up on pending diagnostic tests and treatments, as necessary interaction with other health dog day care attendant who will assume or reassume care of the beneficiary?s system-specific problems was done or is being worked on, education was provided to the beneficiary, family, guardian, and/or caregiver, referrals to establish or re-establish and arrange needed community resources we completed, assistance in scheduling required follow-up with community providers and services & finally updated medication list given to patient/caregiver Here with dtr, who lives in [facility] w/o services; Dtr will not be here for halfway She is interested in VNA for SN and PT assessment. No falls. - She has a history of a myocardial infarction (NSTEMI) and is scheduled for further cardiac evaluation, including a catheterization at the end of this month. - Continuous oxygen therapy was initiated after her hospital discharge for complications related to her COPD, and she has been actively working on reducing dependency with some success. using 1-2 L 24/day - Depression has been a recent concern for the patient, managed with a prescribed dose of sertraline. - An adrenal adenoma was incidentally discovered during recent diagnostics, but management will be deferred till acute issues resolve. - She previously maintained a highly active lifestyle but has been limited recently due to health concerns. Discussions included addressing her insurance and potential for a protective medical leave. 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 Is wearing Holter Cardiac cath at [facility] 10/[address] duenas in october No appt yet with pulm - wearing 02 24 hours/day 2L with activity and 1 L at rest. 02 sat 98% on 1L Using [employer] for 02 Needs Pulm referral Denies any chest pain No more hemoptysis Denies fever, chills. Mood- feeling anxious but managing w/ sertraline, has felt this to be helpful. Plan [facility] [place] Cont all meds, refills [place] [facility] referral for SN and PT FMLA ppw completed cont leave 09/10-12/11/24. RTO 6 weeks for close interim fu and f/u on mood sooner PRN Total time spent caring for the patient today was 60 minutes. This includes time spent before the visit reviewing the chart, time spent during the visit, and time spent after the visit on documentation, reviewing laboratory results, diagnostic imaging, medications, performing a medically necessary evaluation, counseling on diagnoses, care coordination, ordering appropriate tests, ordering appropriate medications, review of tests performed by other providers, reporting test results with the patient, communication with other healthcare providers. [facility] Medical History (Updated 10/04/24 @ 12:21 by Jonna Arteaga, [facility]) COPD exacerbation High cholesterol HTN (hypertension) Hx of mammogram (~2019) No pertinent family history Urinary tract infection Surgical History (Updated 10/04/24 @ 11:41 by Augustus Vega MA) Hx of colonoscopy (~2014) Social History Household Members: Significant Other Both parents involved: No Caregiver staying overnight: No Housing: House Are you a primary health care marketing specialist to a significant other at home: No Do you presently have visiting nurse or other home services: No 75 years or older and lives alone: No Alcohol intake: current Alcohol intake frequency: a few times a week Patient Tobacco Use Status: Former Tobacco user e-Cigarette/Vaping Use: Never Used Second Hand Smoke Exposure: No service: No Cognitive needs: No Hearing needs: No Vision needs: Yes (wear glasses) Questionnaire PHQ-9 Over the last 2 weeks, how often have you been bothered by any of the following problems? 1. Little interest or pleasure in doing things: several days 2. Feeling down, depressed, or hopeless: not at all 3. Trouble falling or staying asleep, or sleeping too much: not at all 4. Feeling tired or having little energy: several days 5. Poor appetite or overeating: not at all 6. Feeling bad about yourself - or that you are a failure or have let yourself or your family down: not at all 7. Trouble concentrating on things, such as reading the newspaper or watching television: not at all 8. Moving or speaking so slowly that other people could have noticed. Or the opposite - being so fidgety or restless that you have been moving around a lot more than usual: not at all 9. Thoughts that you would be better off or of hurting yourself in some way: not at all Total score: 2 Depression Screening Interpretation: Negative Depression Screening Done: Yes 05107 - PHQ-9 Billing: Yes Source: Developed by Drs. Adama Rizvi, Debi Dye, Deric Sorenson and colleagues, with an educational ca from [employer]. Thrive Questionnaire Date Thrive assessed: 10/04/24 I am a: Patient What is your living situation today?: I have a steady place to live Within the past 12 months, did the food you bought not last and you didn't have the money to get more?: Never true Within the past 12 months, did you worry whether your food would run out before you got money to buy more?: Never true Do you have trouble paying for medicines?: Yes Do you have trouble getting transportation to medical appointments?: No Do you have trouble paying your heating and electricity bill?: No Do you have trouble taking care of your child, family member or friend?: No Do you have trouble with day-to-day activities such as bathing, preparing meals, shopping, managing finances, etc.?: No Are you currently unemployed and looking for a job?: No Are you interested in more education?: No Please select the resources that you would like help with: Paying for medicine Currently or been in a relationship where the following occur: No concerns reported THRIVE Score: 0 AUDIT C Alcohol Use Questionnaire (AUDIT-C) 1. How often do you have a drink containing alcohol?: Monthly or less 2. How many drinks containing alcohol do you have on a typical day when you are drinking?: 1 or 2 3. How often do you have six or more drinks on one occasion?: Never Total Score: 1 Score Reviewed/Action Taken: Yes GENEVIEVE-7 AMB Questionnaire GENEVIEVE-7 Date GENEVIEVE - 7 assessed: 10/04/24 Feeling nervous, anxious, or on edge: 0 = Not at all Not being able to stop or control worryin = Not at all Worrying too much about different things: 0 = Not at all Trouble relaxin = Not at all Being so restless that it is hard to sit still: 0 = Not at all Becoming easily annoyed or irritable: 0 = Not at all Feeling afraid as if something awful might happen: 0 = Not at all Total GENEVIEVE-7 score (0-4 normal; 5-9 mild; 10-14 moderate; 15-21 severe): 0 Source: Developed by Drs. Adama Rizvi, Debi Dye, Deric Sorenson and colleagues, with an educational ca from [employer]. GENEVIEVE-7 Assessment Billing GENEVIEVE-7 Assessment Tool: GENEVIEVE-7 Assessment 13195 Physical exam (Primary Care) Tobacco/Smoking Status: Tobacco use Status Patient Tobacco Use Status Former Tobacco user 10/04/24 11:30 PHQ-9: PHQ-9 Score PHQ-9: Total score 2 10/04/24 11:30 Depression Screening Interpretation: Negative Thrive Assessment: Date of Thrive Assessment Date Thrive assessed 10/04/24 10/04/24 11:30 Currently or been in a relationship where the following occur: No concerns reported Coding Level of Care Code TCM High MDM <= 14 days Diagnoses Hospital discharge follow-up Z09 Simple chronic bronchitis J41.0 COPD type: chronic bronchitis Chronic bronchitis type: simple Other cardiomyopathy I42.8 Cardiomyopathy type: other PAF (paroxysmal atrial fibrillation) I48.0 Mild episode of recurrent major depressive disorder F33.0 Major depression episode severity: mild 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 Laterality: left Acute hypoxemic respiratory failure J96.01 Multifocal pneumonia J18.9 Encounters for administrative purpose Z02.9 Additional Codes GENEVIEVE-7 Assessment Billing - GENEVIEVE-7 Assessment Tool: GENEVIEVE-7 Assessment 88660 ([id number]) PHQ-9 - 07033 - PHQ-9 Billing: Yes ([id number]) Assessment & Plan Assessment & Plan (1) Hospital discharge follow-up: Code(s): Z09 - Encounter for follow-up examination after completed treatment for conditions other than malignant neoplasm (2) COPD (chronic obstructive pulmonary disease): Code(s): J44.9 - Chronic obstructive pulmonary disease, unspecified Category: Medical Qualifiers: COPD type: chronic bronchitis Chronic bronchitis type: simple Qualified Code(s): J41.0 - Simple chronic bronchitis (3) Cardiomyopathy: Code(s): I42.9 - Cardiomyopathy, unspecified Category: Medical Qualifiers: Cardiomyopathy type: other Qualified Code(s): I42.8 - Other cardiomyopathies (4) PAF (paroxysmal atrial fibrillation): Code(s): I48.0 - Paroxysmal atrial fibrillation Category: Medical (5) MDD (major depressive disorder), recurrent episode: Code(s): F33.9 - Major depressive disorder, recurrent, unspecified Category: Medical Qualifiers: Major depression episode severity: mild Qualified Code(s): F33.0 - Major depressive disorder, recurrent, mild (6) Adrenal adenoma: Onset Date: ~08/2024 Comment: [address] needs f/u Code(s): D35.00 - Benign neoplasm of unspecified adrenal gland Category: Medical Qualifiers: Laterality: left Qualified Code(s): D35.02 - Benign neoplasm of left adrenal gland (7) Acute hypoxemic respiratory failure: Code(s): J96.01 - Acute respiratory failure with hypoxia Category: Medical (8) Multifocal pneumonia: Code(s): J18.9 - Pneumonia, unspecified organism Category: Medical (9) Encounters for administrative purpose: Comment: FMLA COMPLETE CONT. LEAVE 09/10-12/11/24 handed back to dtr at time of visit Code(s): Z02.9 - Encounter for administrative examinations, unspecified Category: Medical Plan . Orders: Referrals Pulmonology Referral J18.9 - Pneumonia, unspecified organism, J44.9 - Chronic obstructive pulmonary disease, unspecified, J96.01 - Acute respiratory failure with hypoxia [facility]/Hospice Referral I21.4 - Non-ST elevation (NSTEMI) myocardial infarction, J44.9 - Chronic obstructive pulmonary disease, unspecified, J96.01 - Acute respiratory failure with hypoxia Medications: Refilled ipratropium-albuterol 0.5 mg-3 mg(2.5 mg base)/3 mL 3 mL inhalation TID 90 mL 0RF metoprolol tartrate 12.5 mg (1/2 x 25 mg) PO BID 45 tabs 1RF omeprazole 20 mg PO DAILY 90 caps 2RF atorvastatin 80 mg PO BEDTIME 90 tabs 1RF furosemide 20 mg PO DAILY 90 tabs 1RF sertraline 25 mg PO DAILY 30 tabs 1RF tiotropium bromide 2.5 mcg/actuation (Spiriva Respimat) 2 puffs inhalation RDAILY 4 grams 12RF valsartan 20 mg (1/2 x 40 mg) PO BID 180 tabs 1RF Discontinued guaifenesin take for next 3-4 days Discontinued Reason: Patient Completed Course 200 mg (10 mL) PO TID 473 mL 0RF Patient Instructions: Walk-In Care (Urgent Care): We Make it Easy Walk-in for urgent medical issues such as: ? Seasonal Allergies ? Insect Bites ? Cough ? Diarrhea ? Acute Asthma Attacks ? Back, Knee or Joint Pain ? Ear Infection ? Fever without a Rash ? Headaches ? Nausea ? [place] Eye, Rash or Skin Irritation ? Sore Throat ? Sports Physicals ? Vomiting Most insurances are accepted. Patients do not need to be part of the [facility] to seek care at the walk-in clinic. Locations [facility] , [place] [address] ? [phone] [facility] [place] [place] Walk-In Care in [place] provides services to ages 18 and over. Open Monday-Monday: 8 a.m. to 5 p.m. and Monday: 9 a.m. to 3 p.m.* *Hours may vary due to staffing availability. To confirm Walk-In Care hours in [place], please call [phone]. [address] [place] [address] ? [phone] [facility] [place] Walk-In Care in [place] provides services to ages 12 and over. Open Monday-Monday: 8 a.m. to 5 p.m. Hours may vary due to staffing availability. To confirm Walk-In Care hours in [place], please call [phone]. LABORATORY SERVICES: [facility] ? Primary Location [address] [place] [address] Monday through Monday 6:00 AM ? 5:00 PM Monday 7:00 AM ? 11:00 AM* [phone] The [facility] is centrally located near the front entrance of the [facility] for easy outpatient access. Convenient parking is provided for outpatients. *Hours may vary due to staffing availability. To confirm Laboratory hours for any location, please call [phone]. Offsite Location For your convenience, we offer offsite laboratory draw stations at the following locations: [address] [place] [address] ? [address], [address] Monday through Monday 7:30 AM ? 1:00 PM* [phone] *Hours may vary due to staffing availability. To confirm Laboratory hours for any location, please call [phone]. [place] ? [address] Monday through Monday 6:00 AM ? 3:30 PM* Monday 6:30 AM ? 3 PM* [phone] *Hours may vary due to staffing availability. To confirm Laboratory hours for any location, please call [phone] [place] [address] Monday through Monday 7:30 AM ? 4:00 PM* [phone] *Hours may vary due to staffing availability. To confirm Laboratory hours for any location, please call [phone] [place] [address] Monday through 9:00 AM ? 4:00 PM* *Hours may vary due to staffing availability. To confirm Laboratory hours for any location, please call [phone]. Appointments are not necessary. Walk-ins are welcome. Like all the departments throughout the [facility], our Lab undergoes frequent reviews to ensure the quality and accuracy of test results, and our staff takes special pride in its status as a nationally accredited facility. Patient Portal: ONE PATIENT. ONE RECORD. BETTER CARE. [facility] has a fully integrated, cutting-edge mobile electronic health information system that has revolutionized the way we care for our patients and manage our organization. This system improves communication and coordination enabling us to provide safe, higher-quality care, and an overall positive experience for staff and patients. Our first priority, as always, is to deliver the highest quality care possible. The system is running in the background supporting that priority. This portal is for all [facility] services and practices. If you are experiencing any technical difficulties with enrolling or logging into the Patient Portal please complete the [facility] Patient Portal Technical Support Form. [facility] now offers a new secure on-line interactive tool for patients to review their health information ? ?Patient Portal. This interactive web portal will enable patients and their families to take an active role in their care by providing easy, secure access to their health information via the internet. The Patient Portal provides patients with instant access to their health information, including laboratory results, medications, allergies, demographic information, visit history, and more. In addition to managing their own care, parents and health care proxies with authorized consent will appreciate the ability to access the records of those individuals for whom they provide care. Please note: if you wish to gain access (Proxy) to another patient?s portal, you will be required to come to the Medical Records Department in person at [facility]. Both the patient giving proxy access and the proxy will need to provide photo identification and complete the appropriate authorization. The Patient Portal also allows track their appointments online. The [facility] Patient Portal also saves patients time by allowing them to submit updates to their demographic and contact information prior to their visits. Portal email notifications will also alert patients to any new activity on their portal, such as test results and new appointments. In order to initially enroll in the [facility] Patient Portal, you will need to enter some required information including the following: your [facility] Medical Record number your personal home email address name date of Please note: In order to enroll in the [facility] Patient Portal, we need to have your email address on file in your electronic medical record. ?The email address needs to be specific for one person (yourself) in order for your Portal enrollment to be successful. ?You can update your email address in person with our Registration staff when you are registering for a hospital visit. ?Otherwise, you will need to come to the Health Information Management (Medical Records) Department at [facility]. ?We are open from Monday ? Monday from 7:30 a.m. ? 4:30 p.m. ?You will be required to present a photo id. Once you have successfully enrolled in the Patient Portal, you will receive a one-time user id and password for the Portal, sent to your email address. ?This will allow you to log into the Patient Portal within 99 hrs and reset your own logon id and password, and define personal security questions. ?Once your permanent login and password have been set, you can log into the [facility] Patient Portal at any time via the blue button above or from the Portal Logon button on any page of the [facility] website. [facility] and [facility] encourage all of our patients to enroll in Patient Portal as it presents a valuable opportunity for patients and their families to actively participate in their care and stay healthy Welcome to [facility]. ?We look forward to working with you.
[2024-10-04 11:35] VITALS: BP 110/68; PULSE 65; RESP 12; TEMP 36.4; O2SAT 98; BMI 28.0
--- OUTSIDE RECORDS SUMMARY | 2024-10-04 12:21 | XMS_ITS | Clinical Summary ---
Author Organization [email or web address] Address [address] [place] [address] [address] [place] [address] Care Team Providers Care See Wheeler Name Role Phone Unavailable Primary Care Provider Unavailabl e Encounters Date Type Department Care Team Description 09/30/2024 Telephone [facility] [address] [place] [id number] Roque Schroeder MD New patient appt. from [...] Description 01/14/2025 10:15 AM EDT Office Visit [facility] [address] [place] [id number] Samina Fisher MD [address] [place] [id number] Health Maintenance Due Date Last Done Comments [...] patient's age to complete this topic Insurance [facility] F[facility]
--- OUTSIDE RECORDS SUMMARY | 2024-10-04 12:21 | XMS_ITS | Encounter Summary ---
Author Organization [employer] Address [address] [place] [address] [place] [address] Care Team Providers Care Bag Mender Name Role Phone Unavailable Primary Care Provider Unavailabl e Reason for Visit * Reason Onset Date Comments New patient appt. 09/30/2024 Encounter Details Date Type Department Care Team (Late st Contact Info) Description 09/30/2024 Telephone [facility] [address] [place] [address] [phone] Roque Schroeder MD [address] [place], [place] [phone] New patient appt. Social History Tobacco Use [...] EDT Incoming call from pt to book HEALTH SERVICES MANAGER appt. Patient booked for 01/14/[address] Houston. Medical conditions reported: COPD, recent heart attack. Appt reminder sent via text and mail. documented in this encounter Plan of Treatment Upcoming Encounters Date Type Department Care Team (Late st Contact Info) Description 01/14/2025 10:15 AM EDT Office Visit [facility] [address] [place], [place] [phone] Samina Fisher MD [address] [place], [place] [phone] documented as of this encounter Visit Diagnoses Not on filedocumented in this encounter
== END 2024-10-04 12:15 | disposition home or self-care (01) ==
LOC: HO.HMCFM 11:21
PROVIDERS: Visit Provider Nurse Practitioner Family
DX: J41.0 Simple chronic bronchitis (principal); I42.8 Other cardiomyopathies; I48.0 Paroxysmal atrial fibrillation; J96.01 Acute respiratory failure with hypoxia; F33.0 Major depressive disorder, recurrent, mild; Z09 Encounter for follow-up examination after completed treatment for conditions other than malignant neoplasm; D35.02 Benign neoplasm of left adrenal gland; J18.9 Pneumonia, unspecified organism; Z02.9 Encounter for administrative examinations, unspecified

== ENCOUNTER → 2024-10-04 11:20 | Outpatient (BNVA) | payer MEDICARE, SELFPAY | PROVIDERS: Visit Provider Nurse Practitioner Family | DX: J41.0 Simple chronic bronchitis (principal); J18.9 Pneumonia, unspecified organism; J96.01 Acute respiratory failure with hypoxia; I42.8 Other cardiomyopathies; I48.0 Paroxysmal atrial fibrillation; F33.0 Major depressive disorder, recurrent, mild; D35.02 Benign neoplasm of left adrenal gland; I21.4 Non-ST elevation (NSTEMI) myocardial infarction; Z09 Encounter for follow-up examination after completed treatment for conditions other than malignant neoplasm; Z87.891 Personal history of nicotine dependence | CPT/HCPCS: 96127; 99212 ==

== ENCOUNTER 2024-10-10 15:03 | Outpatient (REF) | payer MEDICARE, SELFPAY ==
[2024-10-10 15:58] LABS: INTERNATIONAL NORM RATIO 1.2 (0.9-1.1); Prothrombin Time 13.7 SEC (10.9-12.4)
[2024-10-10 16:04] LABS: Hematocrit 37.6 % (37.0-47.0); Hemoglobin 12.5 g/dl (12.0-16.0); Mean Corpuscular HGB Conc 33.2 g/dl (31.0-35.0); Mean Corpuscular Hemoglobin 29.1 pg (27.0-33.0); Mean Corpuscular Volume 87.4 fL (80.0-98.0); Mean Platelet Volume 11.1 fL (9.4-12.3); Platelet Count 316 X10*3/uL (160-400); Red Cell Distribution Width 14.1 % (11.0-16.0)
[2024-10-10 16:18] LABS: Anion Gap 12 (12-20); Blood Urea Nitrogen 11 mg/dL (9-16); Calcium 9.8 mg/dL (8.4-10.2); Carbon Dioxide 28 mmol/L (22-29); Chloride 102 mmol/L (96-108); Estimated Glomerular Filt Rate > 60; Glucose Random 116 mg/dL (60-115); Potassium 4.1 mmol/L (3.3-5.1); Sodium 138 mmol/L (135-145)
--- OUTSIDE RECORDS SUMMARY | 2024-10-10 17:50 | XMS_ITS | Clinical Summary ---
Author Organization [employer] Address [address] [place] [address] 7 [place] [address] Care Team Providers Care Marketing Director Name Role Phone Unavailable Primary Care Provider Unavailabl e Encounters Date Type Department Care Team Description 09/30/2024 Telephone [facility] [address] [place] [phone] Roque Schroeder MD New patient appt. from [...] Description 01/14/2025 10:15 AM EDT Office Visit [facility] [address] [place] [phone] Samina Fisher MD [address] [place] [phone] Health Maintenance Due Date Last Done Comments [...] patient's age to complete this topic Insurance [facility] F[facility]
== END 2024-10-10 15:04 | disposition home or self-care (01) ==
LOC: HO.LAB 15:03
PROVIDERS: PCP Nurse Practitioner Family; Visit Provider Internal Medicine Cardiovascular Disease
DX: I21.4 Non-ST elevation (NSTEMI) myocardial infarction (principal); I42.9 Cardiomyopathy, unspecified; I51.81 Takotsubo syndrome; I48.0 Paroxysmal atrial fibrillation
CPT/HCPCS: 36415; 80048; 85027; 85610

== ENCOUNTER → 2024-10-22 23:59 | Outpatient (BNV) | payer MEDICARE, SELFPAY | PROVIDERS: PCP Nurse Practitioner Family; Visit Provider Internal Medicine Cardiovascular Disease | DX: I21.4 Non-ST elevation (NSTEMI) myocardial infarction (principal) | CPT/HCPCS: 93458; 99152 ==

== ENCOUNTER 2024-11-05 14:49 | Outpatient (AMB) | payer MEDICARE, MEDICAID, SELFPAY ==
[2024-11-05 14:55] VITALS: BP 114/68; PULSE 76; BMI 27.2
--- NOTE | 2024-11-05 14:55 | A.OFFVIS_ITS ---
Vital Signs 11/05/24 14:55 Height 5 ft 4 in Weight 158 lb 11.725 oz BMI 27.2 BP 114/68 Blood Pressure Location Lt brachial Position Sitting Pulse 76 Pulse Source Pulse Oximeter Intake Visit Reasons: Follow up post cardiac cath/[facility] discharge Vp Lab Required: No Mineral Wool Insulation Supervisor: Mineral Wool Insulation Supervisor Present Allergies codeine Allergy (Verified 11/05/24 14:57) Unknown Medication List - Last Reconciled 11/05/24 by Aris Aburto NP albuterol sulfate 90 mcg/actuation (Ventolin HFA) 2 puffs inhalation RQ4H PRN aspirin 81 mg PO DAILY atorvastatin 80 mg PO BEDTIME furosemide 20 mg PO DAILY ipratropium-albuterol 0.5 mg-3 mg(2.5 mg base)/3 mL 3 mL inhalation TID 90 days metoprolol tartrate 12.5 mg (1/2 x 25 mg) PO BID omeprazole 20 mg PO DAILY sertraline 25 mg PO DAILY tiotropium bromide 2.5 mcg/actuation 2 inhalations inhalation QAM valsartan 20 mg (1/2 x 40 mg) PO BID HPI Comments Details: This is a 64-year-old female patient presenting for a follow-up visit. Patient is a little teary at today's visit due to her recent loss of a partner. Patient with a history of COPD, former smoker not on home oxygen, and was recently hospitalized for hypoxia and sepsis due to RSV pneumonia. During her hospitalization she also experienced NSTEMI and was treated with IV heparin, aspirin, atorvastatin, and metoprolol. Additionally she developed takotsubo cardiomyopathy which was managed with IV Lasix and valsartan. Repeat echocardiogram showed improvement in her ejection fraction from 25-30% to 60- 65%. She was discharged home on 2 L nasal cannula and scheduled for an outpatient cardiac catheterization. This showed no significant coronary artery disease. Also during her hospital stay, she had an episode of AFib and was started on Eliquis but the medication was discontinued after developing hemoptysis. She has undergone Holter monitor with no recurrence of AFib since. Today, the patient reports feeling well overall, and denies any exertional chest pain, shortness of breath, palpitations, dizziness, orthopnea, PND, leg edema, presyncope, or syncope. She has been herself down to 1 L nasal cannula and walked about 4 miles on mother's day without experiencing any shortness of breath. She is hoping to be off oxygen once evaluated by pulmonology next week. She confirms her compliance with all her medications. [facility] Medical History (Updated 11/05/24 @ 15:31 by Aris Aburto NP) No pertinent family history High cholesterol HTN (hypertension) Hx of mammogram (~2019) COPD exacerbation Urinary tract infection Surgical History (Updated 11/05/24 @ 16:55 by Aris Aburto NP) History of cardiac cath Hx of colonoscopy (~2014) Social History Household Members: Significant Other Both parents involved: No Caregiver staying overnight: No Housing: House Are you a primary care transition manager to a significant other at home: No Do you presently have visiting nurse or other home services: No 75 years or older and lives alone: No Alcohol intake: current Alcohol intake frequency: a few times a week Patient Tobacco Use Status: Former Tobacco user e-Cigarette/Vaping Use: Never Used Second Hand Smoke Exposure: No service: No Cognitive needs: No Hearing needs: No Vision needs: Yes (wear glasses) Review of Systems ENT Reports dizziness Card Denies chest pain, Denies chest pain at rest, Denies chest pain with activity, Denies rapid heart rate, Denies pedal edema, Denies edema, Denies leg edema, Denies lightheadedness, Denies palpitations, Denies dyspnea, Denies dyspnea on exertion and Denies orthopnea Resp Denies cough, Denies dyspnea and Denies dyspnea on exertion GI Denies hematochezia and Denies change in stool character Musc Denies abnormal gait, Reports limited range of motion, Reports muscle cramps, Denies muscle weakness, Denies numbness, Denies radiating pain into limb, Denies stiffness and Denies tingling Neuro Denies abnormal gait, Reports dizziness, Denies numbness and Denies tingling Endo Denies palpitations Physical Exam Vital Signs: Last Vital Signs Pulse 76 11/05/24 14:55 BP 114/68 11/05/24 14:55 BMI result Body Mass Index 27.2 Const General: cooperative, healthy appearing, comfortable and no acute distress Orientation/consciousness: patient oriented x3 HEENT Head: Yes normal to inspection Neck Neck: Yes normal visual inspection, Yes trachea midline and Yes supple Chest Chest palpation & inspection: normal inspection of the chest Resp Other: on 1L NC Effort & Inspection: normal respiratory effort Auscultation: clear to auscultation bilaterally, no crackles, no rales, no rhonchi and no wheezes Cardio Jugular venous distension: no JVD Palpation: normal PMI Rate: regular rate Rhythm: regular rhythm Heart sounds: S1 normal heart sound present, S2 normal heart sound present, no click, no gallops, no murmurs and no rubs Peripheral pulses: Peripheral pulses 2+ throughout GI Inspection: Yes normal to inspection Palpation (GI): Soft to palpation Auscultation: normal bowel sounds Skin General skin exam: no rashes or lesions noted Neuro General: patient oriented x3 Extrem General: Yes normal to inspection, No no pedal edema and No calf tenderness Psych Appearance: grossly normal Mental Status: mental status grossly normal Speech and movement: Normal speech and movement present Assessment & Plan Assessment & Plan (1) Status post cardiac catheterization: Code(s): Z98.890 - Other specified postprocedural states Category: Medical Plan: 10/22/2024-patient underwent cardiac catheterization with Dr. Ho at [facility] that showed no significant coronary artery disease. Right wrist catheterization site is well healed. Continue aspirin therapy. No reported signs of bleeding. Continue statin therapy for now. We will get a repeat lipid panel and depending on the finding we may be able to titrate down on her statin. Ideally, LDL goal less than 70. (2) Takotsubo cardiomyopathy: Code(s): I51.81 - Takotsubo syndrome Category: Medical Plan: Patient's heart function significantly improved prior to discharge with an EF between 60-65%. Continue metoprolol, valsartan, and furosemide at this time. We will repeat echo in 6 months. We will monitor her labs periodically. (3) NSTEMI (non-ST elevated myocardial infarction): Code(s): I21.4 - Non-ST elevation (NSTEMI) myocardial infarction Category: Medical Plan: As above. (4) Hypoxia: Code(s): R09.02 - Hypoxemia Category: Medical Plan: Patient is currently on 1 L nasal cannula. Patient has upcoming pulmonology visit next week and is hoping to be weaned off oxygen. (5) Afib: Code(s): I48.91 - Unspecified atrial fibrillation Plan: Patient had an isolated moment of AFib during hospitalization where she was on Eliquis but had to be discontinued due to hemoptysis. No recurrence since. 10/03/2024-Holter study showed underlying sinus rhythm with an average heart rate of 75 beats per minute, rare supraventricular ectopy and rare ventricular ectopy. (6) Hospital discharge follow-up: Code(s): Z09 - Encounter for follow-up examination after completed treatment for conditions other than malignant neoplasm Plan: As above. Advised heart healthy diet, regular exercise, med compliance, and management of vascular risk factors. Emphasized on stress medication strategies. Follow-up in 6 months with a repeat echo. In the interim, patient will call the office with any concerns or change in symptoms. This note was generated using voice recognition software. While every effort has been made to ensure accuracy and proper forestry consultant, there may be occasional errors that could affect the content or meaning of the described symptoms. Orders: Orders CA echo transthoracic complete 6 Months I51.81 - Takotsubo syndrome Liver Panel Today I21.4 - Non-ST elevation (NSTEMI) myocardial infarction Basic Metabolic Panel Today I21.4 - Non-ST elevation (NSTEMI) myocardial infarction Lipid Panel Today I21.4 - Non-ST elevation (NSTEMI) myocardial infarction Coding Level of Care Code Est Pt Level 4 (89122) Complex EM visit Add On G2211 Diagnoses Status post cardiac catheterization Z98.890 Takotsubo cardiomyopathy I51.81 NSTEMI (non-ST elevated myocardial infarction) I21.4 Hypoxia R09.02 Afib I48.91 Hospital discharge follow-up Z09 Time Spent (min) 34 Comment Time spent in reviewing the chart, test results, assessment, counseling and documentation.
--- OUTSIDE RECORDS SUMMARY | 2024-11-05 15:54 | XMS_ITS | Clinical Summary ---
Author Organization [facility] Address [address] [place] [address] 7 [place] [address] Care Team Providers Care Home Therapy Clinician Name Role Phone Unavailable Primary Care Provider Unavailabl e Encounters Date Type Department Care Team Description 09/30/2024 Telephone [facility] [address] [place] [phone] Roque Schroeder MD New patient appt. from [...] Description 01/14/2025 10:15 AM EDT Office Visit [facility] [address] [place] [phone] Samina Fisher MD [address] [place] [phone] Health Maintenance Due Date Last Done Comments CT Colonography 1960 Colonoscopy 1958 Colorectal Cancer Screening 1958 Depression Screening 1958 FIT DNA/Cologuard 1958 FIT 1960 FOBT 1958 SDOH Screening 1960 Sigmoidoscopy 1958 Alcohol/Substance Use Screening 1970 Tobacco Screening 1970 Hepatitis C Screening 1976 DTaP/Tdap/Td Vaccines (1 - Tdap) 1977 Mammogram 1998 Pneumococcal Vaccine: 50+ Ye ars [...] patient's age to complete this topic Insurance [facility] F[facility]
== END 2024-11-05 15:32 | disposition home or self-care (01) ==
LOC: HO.HCS 14:50
DX: Z98.890 Other specified postprocedural states (principal); I51.81 Takotsubo syndrome; I21.4 Non-ST elevation (NSTEMI) myocardial infarction; R09.02 Hypoxemia; I48.91 Unspecified atrial fibrillation; Z09 Encounter for follow-up examination after completed treatment for conditions other than malignant neoplasm
CPT/HCPCS: 99214; G2211

== ENCOUNTER → 2024-11-05 14:49 | Outpatient (BNVA) | payer MEDICARE, SELFPAY | DX: Z09 Encounter for follow-up examination after completed treatment for conditions other than malignant neoplasm (principal); I51.81 Takotsubo syndrome; I21.4 Non-ST elevation (NSTEMI) myocardial infarction; I48.91 Unspecified atrial fibrillation; Z98.890 Other specified postprocedural states; R09.02 Hypoxemia | CPT/HCPCS: 99212 ==

== ENCOUNTER 2024-11-12 14:24 | Outpatient (AMB) | payer MEDICARE, MEDICAID, SELFPAY ==
[2024-11-12 14:42] VITALS: BP 158/76; PULSE 68; O2SAT 96; BMI 27.7
--- NOTE | 2024-11-12 14:42 | A.OFFVIS_ITS ---
Vital Signs 11/12/24 14:42 Height 5 ft 4 in Weight 161 lb 2 oz BMI 27.7 BP 158/76 H Blood Pressure Location Rt brachial Position Sitting Pulse 68 Pulse Source Pulse Oximeter Pulse Oximetry (%) 96 Oxygen Delivery Method Nasal Cannula Oxygen Flow Rate 1 Intake Visit Reasons: COPD Allergies codeine Allergy (Verified 11/12/24 14:46) Unknown HPI HPI COPD: Details: Earlene is a pleasant 64-year-old female, former 40+ pack year smoker, quit 10 years ago with underlying COPD and HTN. She was referred by PCP for pulmonary evaluation. She was admitted to [facility] from 09/10-09/25/2024 for acute respiratory failure and sepsis due to multifocal PNA, complicated by takotsubo cardiomyopathy and atrial fibrillation. Initially she presented to an urgent care after recent travel to [place] where O2 was 79% on room air and was subsequently transferred to the ED for further evaluation and management. EN route, EMS gave a DuoNeb and placed her on 5 L nasal cannula satting 88%. Due to increased work of breathing and persistent hypoxia, patient was transitioned to high-flow O2. Labs revealed leukocytosis of 23.5. Initial troponin 3385, repeat 3195. BNP 805. Negative for COVID-19, RSV, influenza, + human metapneumovirus. CTA of the chest negative for pulmonary embolism but shows mild to moderate pulmonary edema with multifocal pneumonia. In the ED, has been given IV ceftriaxone, IV Levaquin, IV methylprednisolone, albuterol/DuoNeb. She completed course of ceftriaxone and doxycycline during hospital stay, blood cultures negative, PCT low, MRSA neg, urinary antigens for Legionella and pneumococcus negative. During her hospitalization she also experienced NSTEMI and was treated with IV heparin, aspirin, atorvastatin, and metoprolol. Additionally she developed takotsubo cardiomyopathy which was managed with IV Lasix and valsartan. Repeat echocardiogram showed improvement in her ejection fraction from 25-30% to 60-65%. She was discharged home on 2 L nasal cannula and scheduled for an outpatient cardiac catheterization, which was unremarkable. During hospitalizations, she had an episode of AFib, treated with amiodarone and was started on Eliquis, ultimately discontinued after developing hemoptysis. She has undergone Holter monitor with no recurrence of AFib since. Denies any recurrences of hemoptysis. She ultimately was discharged on 1-2 L of supplemental oxygen continuously. DME is [facility]. Today she denies any respiratory symptoms. She has been using Spiriva and albuterol MDI with moderate effect, previously using Dulera as well, however has been without prescription. She denies prior history of asthma. She reports 1 prior hospitalizations secondary to pneumonia about 10 years ago at [facility], otherwise denies recurrent respiratory infections. She denies any occupational exposures. She denies any pertinent family history. [facility] Medical History (Updated 11/13/24 @ 21:04 by Lauren Cosby NP) No pertinent family history High cholesterol HTN (hypertension) Hx of mammogram (~2019) COPD exacerbation Urinary tract infection Surgical History (Updated 11/05/24 @ 16:55 by Aris Aburto NP) History of cardiac cath Hx of colonoscopy (~2014) Social History Household Members: Significant Other Both parents involved: No Caregiver staying overnight: No Housing: House Are you a primary regular senior care provider to a significant other at home: No Do you presently have visiting nurse or other home services: No 75 years or older and lives alone: No Alcohol intake: current Alcohol intake frequency: a few times a week Patient Tobacco Use Status: Former Tobacco user e-Cigarette/Vaping Use: Never Used Second Hand Smoke Exposure: No service: No Cognitive needs: No Hearing needs: No Vision needs: Yes (wear glasses) Review of Systems Const Denies chills, Denies excessive sweating, Denies fever(s), Denies headache(s) and Denies night sweats Eyes Denies dry eyes, Denies irritation and Denies itchy eyes ENT Reports Normal hearing present, Denies headache(s), Denies nasal congestion, Denies nasal discharge, Denies post nasal drip and Denies sore throat Card Denies chest pain, Denies chest pain at rest, Denies chest pain with activity, Denies claudication, Denies leg edema, Denies dyspnea, Denies dyspnea on exertion, Denies orthopnea and Denies paroxysmal nocturnal dyspnea Resp Denies chest congestion, Denies cough, Denies excessive phlegm production, Denies pain on inspiration, Denies pain with cough, Denies dyspnea, Denies dyspnea on exertion, Denies stridor and Denies wheezing Musc Denies myalgias Neuro Reports Normal hearing present and Denies headache(s) Endo Denies excessive sweating James/Lymph Denies lymphadenopathy Aller/Immun Denies itchy eyes, Denies seasonal rhinorrhea and Denies wheezing Physical Exam Vital Signs: Last Vital Signs Pulse 68 11/12/24 14:42 BP 158/76 H 11/12/24 14:42 Pulse Ox 96 11/12/24 14:42 Oxygen Delivery Method Nasal Cannula 11/12/24 14:42 Oxygen Flow Rate 1 11/12/24 14:42 BMI result Body Mass Index 27.7 Const General: cooperative, healthy appearing, comfortable, no acute distress, well developed and alert Orientation/consciousness: patient oriented x3 Limitations: no limitations HEENT Head: Yes normal to inspection, Yes normocephalic and Yes atraumatic Ears: hearing grossly normal bilaterally and external ears normal Eyes General: appearance normal, both eyes and all related structures Eyelids: Yes eyelids normal Sclerae: sclerae normal EOM: EOMs intact bilaterally Neck Neck: Yes normal visual inspection and Yes no lymphadenopathy Lymphatic: no lymphadenopathy noted Chest Chest palpation & inspection: normal inspection of the chest Resp Other: Wearing supplemental oxygen via nasal cannula at 1 L Effort & Inspection: normal respiratory effort, able to speak in complete senten juanis, no audible wheezes, no cough, no stridor, not tachypneic, no tripod positioning and no use of accessory muscles Auscultation: diminished lung sounds Cardio Jugular venous distension: no JVD Rate: regular rate Rhythm: regular rhythm Skin Other: warm, dry General skin exam: no rashes or lesions noted Neuro General: patient oriented x3 Cranial nerves: Yes Normal hearing present Cognition (Neuro): normal cognition Gait exam (Neuro): Normal gait present Extrem General: Yes normal to inspection, Yes capillary refill normal, Yes no clubbing, cyanosis or edema and Yes no pedal edema Psych Appearance: grossly normal and well kempt Speech and movement: Normal speech and movement present and Clear speech present Affect: normal affect Attitude: cooperative Thought process: Normal thought process present Thought content: Normal thought content present Insight: Good insight present (Psych) Judgement: Good judgement present (Psych) Results Reviewed Results Reviewed: [address] [address] [address] Scan Report Signed Patient: Earlene Causey MR#: [id number] : 1960 Acct:[id number] Age/Sex: 63 / F ADM Date: 09/10/24 Loc: [facility] [id number]: Monse Hoskins MD Ordering Physician: Monse Hoskins MD Date of Service: 09/14/24 Procedure(s): CT chest wo IV con Accession Number(s): [id number] cc: Physician,None ; Monse Hoskins MD~ Report Number: [id number]: Total DLP = 268.00 mGy-cm CLINICAL HISTORY: pna heamoptysis CT CHEST WITHOUT CONTRAST Comparison: CR/SR - XR CHEST 1V - 09/12/24 07:[address]/SR - CT ANGIO CHEST PE PROTOCOL - 09/10/24 16:34 EDT Findings: The heart size is normal. Scattered calcific plaque in the normal caliber thoracic aorta. Visualized thyroid gland unremarkable. Improved mediastinal adenopathy. Abnormal airspace opacities in the bilateral upper lobes are unchanged. Abnormal airspace opacities in the right middle lobe, lingula and bilateral lower lobes are improved. No new or worsening consolidative changes. Near-complete resolution of bilateral pleural effusions with residual tiny findings on the right. No pneumothorax. Centrilobular emphysematous changes. No acute fractures. Masslike density in the right upper quadrant on axial image 64. IMPRESSION: 1. Multifocal bilateral pneumonia overall improved compared to prior. 2. Near-complete resolution of small bilateral pleural effusions. 3. Masslike density in the right upper quadrant may represent volume averaging artifact. Recommend clinical correlation and follow-up CT abdomen pelvis with IV contrast if clinically indicated. This document has been electronically signed by: Amna Abdi DO on 09/14/2024 13:32:50 Dictated By: Amna Abdi MD Signed By: <Electronically signed by Amna Abdi MD in OV> 09/14/24 1333 DD/ 133 TD/TT: 09/14/24 133 Step Down Specialist: Assessment & Plan Assessment & Plan (1) COPD (chronic obstructive pulmonary disease): Code(s): J44.9 - Chronic obstructive pulmonary disease, unspecified Category: Medical Qualifiers: COPD type: chronic bronchitis Chronic bronchitis type: simple Qualified Code(s): J41.0 - Simple chronic bronchitis (2) History of acute respiratory failure: Code(s): Z87.09 - Personal history of other diseases of the respiratory system Category: Medical (3) History of recent pneumonia: Code(s): Z87.01 - Personal history of pneumonia (recurrent) Category: Medical (4) Personal history of tobacco use: Code(s): Z87.891 - Personal history of nicotine dependence Category: Social Hx Plan Earlene presents for pulmonary evaluation after recent admission to [facility] for acute respiratory failure and sepsis secondary to multifocal pneumonia. She reports significant improvements overall currently denying respiratory symptoms. Will refill Dulera and advised to continue Spiriva as well as albuterol MDI/DuoNeb. Patient reports checking oxygen saturation at home and on room air still decreasing to 88- 89%. Encouraged patient to continue to use 1-2 L of supplemental oxygen to maintain O2 saturation greater than 92%. Will perform 6 minute walk at next visit. Will send for PFT to assess severity of obstructive defect. Will send for repeat chest CT in 3 months to assess for resolution of multifocal pneumonia. She is aware to call if symptoms change. All questions were answered and patient is in agreement of plan. Will follow-up to review results or sooner if needed. Orders: Orders PFT pulmonary function test Today J41.0 - Simple chronic bronchitis CT chest wo IV con 2 Months Z87. - Personal history of pneumonia (recurrent) Medications: New mometasone-formoterol 100-5 mcg/actuation (Dulera) 2 puffs inhalation BID 1 ea 6RF Refilled albuterol sulfate 90 mcg/actuation (Ventolin HFA) 2 puffs inhalation RQ4H PRN 8.5 grams 0RF sob Coding Level of Care Code New Pt Level 4 (55826) Complex EM visit Add On G2211 Diagnoses Simple chronic bronchitis J41.0 COPD type: chronic bronchitis Chronic bronchitis type: simple History of acute respiratory failure Z. History of recent pneumonia Z. Personal history of tobacco use Z87.891
--- OUTSIDE RECORDS SUMMARY | 2024-11-12 15:50 | XMS_ITS | Clinical Summary ---
Author Organization [employer] [facility] Address [address] [place] [address] 7 [place] [address] Care Team Providers Care Endoscopy Tech Name Role Phone Unavailable Primary Care Provider Unavailabl e Encounters Date Type Department Care Team Description 09/30/2024 Telephone [facility] MEDICINE [address] [place] [phone] Roque Schroeder MD New patient appt. from [...] Description 01/14/2025 10:15 AM EDT Office Visit [facility]INE [address] [place] [phone] Samina Fisher MD [address] [place] [phone] Health Maintenance Due Date Last Done Comments [...] patient's age to complete this topic Meningococcal B Vaccine Aged Out No l onger eligible based on patient's age to complete this topic Meningococcal Vaccine Aged Out No edy rebecca eligible based on patient's age to complete this topic RSV under 20 months Aged Out No longe r eligible based on patient's age to complete this topic Rotavirus Vaccines Aged Out No longer eligible based on patient's age to complete this topic Insurance [facility] FULL
== END 2024-11-12 15:28 | disposition home or self-care (01) ==
LOC: HO.HPSW 14:26
PROVIDERS: PCP Nurse Practitioner Family; Referring Provider Nurse Practitioner Family; Visit Provider Nurse Practitioner Family
DX: J41.0 Simple chronic bronchitis (principal); Z87.09 Personal history of other diseases of the respiratory system; Z87.01 Personal history of pneumonia (recurrent); Z87.891 Personal history of nicotine dependence
CPT/HCPCS: 99204; G2211

== ENCOUNTER → 2024-11-12 14:24 | Outpatient (BNVA) | payer MEDICARE, OTHER, SELFPAY | PROVIDERS: PCP Nurse Practitioner Family; Referring Provider Nurse Practitioner Family; Visit Provider Nurse Practitioner Family | DX: J41.0 Simple chronic bronchitis (principal); I10 Essential (primary) hypertension; I48.91 Unspecified atrial fibrillation; Z99.81 Dependence on supplemental oxygen; Z79.01 Long term (current) use of anticoagulants; Z87.01 Personal history of pneumonia (recurrent); Z87.891 Personal history of nicotine dependence | CPT/HCPCS: 99202 ==

== ENCOUNTER → 2024-11-12 23:59 | Outpatient (BNV) | payer MEDICARE, MEDICAID, SELFPAY | PROVIDERS: PCP Nurse Practitioner Family; Visit Provider Nurse Practitioner Family | DX: J44.0 Chronic obstructive pulmonary disease with (acute) lower respiratory infection (principal); J18.9 Pneumonia, unspecified organism | CPT/HCPCS: G0180 ==

== ENCOUNTER 2024-11-20 13:07 | Outpatient (AMB) | payer MEDICARE, MEDICAID, SELFPAY ==
--- NOTE | 2024-11-20 13:17 | A.OFFPC_ITS ---
Vital Signs 11/20/24 13:32 Height 5 ft 4 in Weight 158 lb BMI 27.1 BP 122/70 Blood Pressure Location Lt brachial Position Sitting Respiration 12 Pulse 98 Pulse Source Pulse Oximeter Temp 97.2 F Temp Source Oral Pulse Oximetry (%) 98 Oxygen Delivery Method Nasal Cannula Oxygen Flow Rate 1 Intake Visit Reasons: 6 weeks 30 min close interim fu Intake Note: 6 Weeks follow up. Patient needs refill on meds. 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 Maternal Child Required: No Allergies codeine Allergy (Verified 11/20/24 13:17) Unknown Medication List - Last Reconciled 11/20/24 by Jonna Arteaga, [employer]- albuterol sulfate 90 mcg/actuation (Ventolin HFA) 2 puffs inhalation RQ4H PRN aspirin 81 mg PO DAILY atorvastatin 80 mg PO BEDTIME furosemide 20 mg PO DAILY ipratropium-albuterol 0.5 mg-3 mg(2.5 mg base)/3 mL 3 mL inhalation TID 90 days metoprolol tartrate 12.5 mg (1/2 x 25 mg) PO BID mometasone-formoterol 100-5 mcg/actuation (Dulera) 2 puffs inhalation BID omeprazole 20 mg PO DAILY sertraline 25 mg PO DAILY tiotropium bromide 2.5 mcg/actuation 2 inhalations inhalation QAM valsartan 20 mg (1/2 x 40 mg) PO BID Tobacco use date assessed: 11/20/24 Fall risk assessment: No Falls in past year Last assessed Fall Risk: 11/20/24 Dental Screening Dental Screen Date: 11/20/24 Did you have a dental visit in the last 12 months?: Yes Did you have a dental problem in the last 6 months where you did not have access to dental care?: No Was dental information given to patient?: Patient has dentist HPI HPI Comments History of Present Illness Details 64 yo female with L adrenal adenoma 9mm (CT 08/2024) former smoker quit 10 to 12 years ago, COPD on home O2,hx of sepsis due to multifocal PNA, HFrEF/takotsubo cardiomyopathy, CAD, NSTEMI 2024, Paroxysmal AF, Adjustment disorder History of Present Illness - The patient is a 64-year-old female pr esenting with a follow-up for heart failure and respiratory issues. - NSTEMI and heart failure with oxygen d ependence; consulted cardiology & pulm - Reports increased emotional distress, recent personal loss, and family health issues. On sertraline. Denies si/hi. Intereseted in counseling. - Adrenal adenoma identified; follow-up recommended. - Oxygen levels maintained with adjustme nts; recent cardiac cath clear 10/22/24 Review of Systems - Cardiovascular: Reports no chest pain, no leg swelling. - Respiratory: Reports use of oxygen; de nies new respiratory symptoms. - Psychological: Reports feeling hopeles s, difficulty with recent personal and family stressors. - Musculoskeletal: Denies leg swelling. - General: Reports difficulty getting ou t of bed; feeling overwhelmed. Physical Exam General: Well developed, well nourished, in no acute distress. Appears stated age. Head: Normocephalic, atraumatic. Eyes: Pupils are equal, round and reactive to light and accommodation. Conjunctivae are clear. Lungs: Diminished breath sounds with faint wheezing at the bases. 02 1L Heart: Regular rate and rhythm. No murmurs, click, rubs or gallops are noted. Pulses: Peripheral pulses are equal and palpable bilaterally. Extremities: No clubbing, cyanosis nor edema is noted. Psych: Mood and affect appropriate, but patient reports feeling hopeless and overwhelmed. R Results - Tests: Cardiac catheterization on showed no significant coronary artery disease. - Labs: Repeat cholesterol panel recomme nded. - Imaging: Adrenal adenoma noted, follow -up recommended. Notes reviewed: 10/2024 Pulm consult, [facility], Dulera, Spiriv a, PRN 02 > 92%, PFT repeat chest Ct 10/2024 [facility] Cards, repeat echo 6 months, cont meds. 09/2024 Discussion Notes During the visit, I discussed with the patient the continuation of her current medications for heart failure and hyperlipidemia. We talked about the start of Dulera for respiratory management and its potential benefits. I addressed her emotional distress, discussing the increase of sertraline to 50 mg daily and the importance of counseling. I explained the referral process for counseling & help w/ housing insecurity through the nurse navigation team. Additionally, we discussed her adrenal adenoma and the possibility of scheduling a follow-up CT scan alongside her pulmonary CT. I provided instructions for oxygen use to maintain saturation levels above 92%. We also reviewed the importance of crisis phone numbers and encouraged her to input these contacts into her phone for immediate support if needed. Follow-up plans include reassessment in six weeks. Assessment and Plan 1. Heart failure and NSTEMI - Continue atorvastatin, furosemide, met oprolol, valsartan. - follow with cardiology. 2. Respiratory issues - Continue oxygen therapy; schedule pulm onary tests. 3. Depression - Increase sertraline to 50 mg; refer fo r counseling. 4. Adrenal adenoma - Plan CT follow-up; coordinate with pul monary scan. 5. Isolated Atrial Fibrillation - No recurrence; monitor. 6. General health maintenance - Monitor BP and lipids; reinforce medic ation adherence. Patient Instructions - Continue taking your medications as pr escribed. - Start Dulera on November 24 as planned. - Maintain oxygen use to keep your level s above 92%. - Increase sertraline to 50 mg daily; ta ke two 25 mg tablets until your new prescription is filled. - Expect a call from the nurse navigatio n team regarding counseling. - Schedule your pulmonary function test and chest CT before your next pulmonary visit. - Put crisis phone numbers in your phone for support. - Follow up in six weeks for reassessmen t. Consent Patient was informed and verbally consented to the use of an ambient scribe for clinic note documentation during this visit. Total time spent caring for the patient today was 45 minutes. This includes time spent before the visit reviewing the chart, time spent during the visit, and time spent after the visit on documentation, reviewing laboratory results, diagnostic imaging, medications, performing a medically necessary evaluation, counseling on diagnoses, care coordination, ordering appropriate tests, ordering appropriate medications, review of tests performed by other providers, reporting test results with the patient, communication with other healthcare providers. [facility] Medical History (Updated 11/20/24 @ 15:31 by Jonna Arteaga [facility]) COPD exacerbation High cholesterol HTN (hypertension) Hx of mammogram (~2019) Multifocal pneumonia No pertinent family history Urinary tract infection Surgical History (Updated 11/05/24 @ 16:55 by Aris Aburto NP) History of cardiac cath Hx of colonoscopy (~2014) Social History Household Members: Significant Other Both parents involved: No Caregiver staying overnight: No Housing: House Are you a primary resident care associate to a significant other at home: No Do you presently have visiting nurse or other home services: No 75 years or older and lives alone: No Alcohol intake: current Alcohol intake frequency: a few times a week Patient Tobacco Use Status: Former Tobacco user e-Cigarette/Vaping Use: Never Used Second Hand Smoke Exposure: No service: No Cognitive needs: No Hearing needs: No Vision needs: Yes (wear glasses) Questionnaire Thrive Questionnaire Date Thrive assessed: 10/02/24 I am a: Patient What is your living situation today?: I have a steady place to live Within the past 12 months, did the food you bought not last and you didn't have the money to get more?: Never true Within the past 12 months, did you worry whether your food would run out before you got money to buy more?: Never true Do you have trouble paying for medicines?: Yes Do you have trouble getting transportation to medical appointments?: No Do you have trouble paying your heating and electricity bill?: No Do you have trouble taking care of your child, family member or friend?: No Do you have trouble with day-to-day activities such as bathing, preparing meals, shopping, managing finances, etc.?: No Are you currently unemployed and looking for a job?: No Are you interested in more education?: No Please select the resources that you would like help with: Paying for medicine Currently or been in a relationship where the following occur: No concerns reported THRIVE Score: 0 GENEVIEVE-7 AMB Questionnaire GENEVIEVE-7 Date GENEVIEVE - 7 assessed: 10/04/24 Source: Developed by Drs. Adama Rizvi, Debi Dye, Deric Sorenson and colleagues, with an educational ca from [employer]. Physical exam (Primary Care) Vital Signs: Last Vital Signs Temp 97.2 F 11/20/24 13:32 Pulse 98 11/20/24 13:32 Resp 12 11/20/24 13:32 BP 122/70 11/20/24 13:32 Pulse Ox 98 11/20/24 13:32 Oxygen Delivery Method Nasal Cannula 11/20/24 13:32 Oxygen Flow Rate 1 11/20/24 13:32 BMI result Body Mass Index 27.1 Tobacco/Smoking Status: Tobacco use Status Tobacco use date assessed 11/20/24 11/20/24 13:18 Patient Tobacco Use Status Former Tobacco user 11/20/24 13:18 e-Cigarette/Vaping Use Never Used 11/20/24 13:18 Thrive Assessment: Date of Thrive Assessment Date Thrive assessed 10/02/24 11/20/24 13:18 Currently or been in a relationship where the following occur: No concerns reported Coding Level of Care Code Est Pt Level 5 (77124) Complex EM visit Add On G2211 Diagnoses Mild episode of recurrent major depressive disorder F33.0 Major depression episode severity: mild 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 Laterality: left Housing insecurity Z59.819 Takotsubo cardiomyopathy I51.81 Assessment & Plan Assessment & Plan (1) MDD (major depressive disorder), recurrent episode: Code(s): F33.9 - Major depressive disorder, recurrent, unspecified Category: Medical Qualifiers: Major depression episode severity: mild Qualified Code(s): F33.0 - Major depressive disorder, recurrent, mild (2) Adrenal adenoma: Onset Date: ~08/2024 Comment: [address] needs f/u Code(s): D35.00 - Benign neoplasm of unspecified adrenal gland Category: Medical Qualifiers: Laterality: left Qualified Code(s): D35.02 - Benign neoplasm of left adrenal gland (3) Housing insecurity: Code(s): Z59.819 - Housing instability, housed unspecified Category: Medical (4) Takotsubo cardiomyopathy: Code(s): I51.81 - Takotsubo syndrome Category: Medical Plan . Orders: Orders CT adrenal wo/w IV con Today D35.02 - Benign neoplasm of left adrenal gland Referrals Nurse Navigator Referral F33.0 - Major depressive disorder, recurrent, mild, Z59.819 - Housing instability, housed unspecified Medications: New sertraline 50 mg PO DAILY 30 tabs 1RF Discontinued sertraline Discontinued Reason: Doctor's Order 25 mg PO DAILY 30 tabs 1RF Patient Instructions: National Suicide and Crisis Lifeline: Available 24 hours a day, 7 days a week, 365 days a year Dial 988 with any telephone to speak to someone immediately [facility] (Mental / Behavioral health therapist: [address] [place] [address] [facility]: [address] [place] [phone] Open from 10am - 12pm (walk ins welcome) [facility] Crisis Services: [address] [place] [address] Walk in hours from 10am - 12pm Behavioral health Network: [address] [place] [address] [place] [address] Monday through Monday 8am - 8pm Monday and Monday 9am - 5pm Crisis Hotlines Suicide prevention, domestic violence, and other crisis hotlines for youth, young adults, and their friends and families. [facility] Safeline: The [facility] Safeline helps youth who have run away, are thinking about running away, or who already ran away but are ready to come home. Parents and guardians can also contact the hotline if they are worried about their child running away or if their child has already left home. The hotline is available 24 hours a day, seven days a week. Youth, parents, and guardians can also use the online chat feature on the [facility]'s website to ask for help and get support, or can send a text to [facility] [place]. [facility] National Suicide Prevention Lifeline: The National Suicide Prevention Lifeline is a network of local crisis centers that are available 16/01 to provide support for youth and adults who are in any kind of emotional crisis. In addition to the main hotline number listed above, there are several other numbers to call depending on your needs: Portuguese Language: Deaf and Hard of Hearin1-402.952.5609 Veterans: Disaster Distress: Anyone can also use their online chat feature on their website. National Suicide Prevention Lifeline [facility] Helpline: The [facility] Helpline is available to anyone in [place] who is need of emotional support. Anyone can call or text the helpline to receive help from specially trained volunteers. [place] high school and college students can also get online support through the [employer]_ program. For high school students, volunteers ages 15-18 are available Monday- from 6-9PM. For college students, [employer]_ is available Monday-Monday from 5-9PM. The [employer] Project - The [employer] is a 16/01 crisis intervention and suicide prevention hotline for LGBTQ youth. Youth can also text [employer] to for support, or use the online chat feature on the [employer]'s website. [employer] is available Monday-Monday between 3-10PM. [employer] is available seven days a week between 3-10PM. SafeLink: SafeLink is for anyone who is being affected by domestic violence or dating violence. Volunteers at [employer] speak [place] and Portuguese, and [employer] also has a service that can provide translation in more than 130 languages. TTY:
[2024-11-20 13:32] VITALS: BP 122/70; PULSE 98; RESP 12; TEMP 36.2; O2SAT 98; BMI 27.1
--- OUTSIDE RECORDS SUMMARY | 2024-11-20 13:56 | XMS_ITS | Clinical Summary ---
Author Organization [employer] [facility] Address [address] [place] [address] 7 [place] [address] Care Team Providers Care Bench Molder Apprentice Name Role Phone Unavailable Primary Care Provider Unavailabl e Encounters Date Type Department Care Team Description 09/30/2024 Telephone [facility] [address] [place] [phone] Roque Schroeder MD New patient appt. from [...] Description 01/14/2025 10:15 AM EDT Office Visit [facility] [address] [place] [phone] Samina Fisher MD [address] [place] [phone] Health Maintenance Due Date Last Done Comments [...] patient's age to complete this topic Insurance [facility]
== END 2024-11-20 14:12 | disposition home or self-care (01) ==
LOC: HO.HMCFM 13:08
PROVIDERS: Visit Provider Nurse Practitioner Family
DX: F33.0 Major depressive disorder, recurrent, mild (principal); D35.02 Benign neoplasm of left adrenal gland; Z59.819 Housing instability, housed unspecified; I51.81 Takotsubo syndrome

== ENCOUNTER → 2024-11-20 13:07 | Outpatient (BNVA) | payer MEDICARE, SELFPAY | PROVIDERS: Visit Provider Nurse Practitioner Family | DX: F33.0 Major depressive disorder, recurrent, mild (principal); D35.02 Benign neoplasm of left adrenal gland; I51.81 Takotsubo syndrome; Z59.819 Housing instability, housed unspecified | CPT/HCPCS: 99212 ==

== ENCOUNTER 2024-12-31 09:11 | Outpatient (REF) | payer MEDICARE, MEDICAID, SELFPAY ==
--- NOTE | ~2024-12-31 | CT_ITS ---
EXAMINATION: CT ABDOMEN WITHOUT CONTRAST CLINICAL INFORMATION: D35.02 - Benign neoplasm of left adrenal gland COMPARISON: September 19, 2024 DLP: 267 mGY*cm TECHNIQUE: Contiguous axial thin section helical images of the abdomen were performed without contrast. The data set was reformatted in the coronal and sagittal planes and reviewed on an independent workstation. This CT examination was performed using dose optimization techniques as appropriate, variously including the following: *Automated exposure control *Adjustment of mA and/or kV according to patient size (this includes techniques or standardized protocols for targeted exams where dose is matched to indication/reason for exam; i.e. extremities or head) *Use of iterative reconstruction technique FINDINGS: LIVER, GALLBLADDER, BILIARY TREE: Liver is unremarkable. Gallbladder is within normal limits as well. PANCREAS: There t is an angled linear density in the body of the pancreas that was present on the prior examination and could represent calcification. It appears unchanged. It measures 12 mm long axis. SPLEEN: Unremarkable ADRENAL GLANDS AND KIDNEYS: There is a 12 mm left adrenal gland nodule that measures -10 Hounsfield units diagnostic of a benign lipid rich adrenal adenoma. Right adrenal gland is unremarkable. Kidneys are unremarkable. No stones are present. There is no hydronephrosis. BOWEL LOOPS: Visualized bowel loops are unremarkable. LYMPH NODES: Normal. VASCULAR: Unremarkable. BONES: Unremarkable CT/CT abdomen wo IV con IMPRESSION: 12 mm lipid rich adrenal adenoma on the left. No further radiologic workup is necessary. Fleischner guidelines were followed. Electronically signed by: Sai Ordonez MD 12/31/2024 10:53 AM EDT
--- NOTE | ~2024-12-31 | CT_ITS ---
EXAMINATION: CT CHEST WITHOUT CONTRAST CLINICAL INFORMATION: Z87.01 - Personal history of pneumonia (recurrent) DLP: 267 mGY*cm COMPARISON: September 14, 2024 TECHNIQUE: Multidetector volumetric CT imaging of the chest was done. Axial MIP volume rendering provided. Sagittal and coronal reformatted images were obtained. This CT examination was performed using dose optimization techniques as appropriate, variously including the following: *Automated exposure control *Adjustment of mA and/or kV according to patient size (this includes techniques or standardized protocols for targeted exams where dose is matched to indication/reason for exam; i.e. extremities or head) *Use of iterative reconstruction technique FINDINGS: LUNGS: Moderate centrilobular emphysema is again noted. Multilobar opacities in the lungs and the prior examination have resolved. MEDIASTINUM: Trace pericardial effusion is new since the prior. Atherosclerotic calcifications are present in the aortic arch and descending thoracic aorta. CORONARY ARTERY CALCIFICATION: None visualized on this study. PLEURA: There is no pleural effusion. No pleural mass or thickening. AXILLA: No lymphadenopathy. OSSEOUS STRUCTURES: Unremarkable. CT/CT chest wo IV con IMPRESSION: Moderate centrilobular emphysema with interval resolution of multilobar pneumonia. New small pericardial effusion. Fleischner guidelines were followed. Electronically signed by: Sai Ordoenz MD 12/31/2024 10:43 AM EDT
--- OUTSIDE RECORDS SUMMARY | 2024-12-31 09:35 | XMS_ITS | Encounter Summary ---
Author Organization [employer] [facility] Address [address] [facility] 7 [place] [address] Care Team Providers Care Systems Developer Name Role Phone Unavailable Primary Care Provider Unavailabl e Encounter Details Date Type Department Care Team (Late st Contact Info) Description 12/26/2024 Orders Only [facility] [address] [place] [address] [phone] Toma Mcnally ANP [address] [place], [place] [phone] COPD with hypoxia (CMS/HCC) (Primary Dx) Social History Tobacco Use Types Packs/Day Years Used Date Smoking Tobacco: Never Assessed Comments Unknown Sex and Gender Information Value Date Recorded Sex Assigned at Not on file Legal Sex Female 3:52 PM EDT Gender Identity Not on file Sexual Orientation Not on file documented as of this encounter Progress Notes * LUKE Pittman - 12/26/2024 4:24 PM EDT Pt has COPD, per med review and [facility] pharmacist [facility], pt was on spiriva handihaler, her insurance will no longer cover it. Pt has new pt appt w/ Dr. Houston 01/14. Will send incruse in the meantime. Pt is on portable O2. documented in this encounter Plan of Treatment Upcoming Encounters Date Type Department Care Team (Late st Contact Info) Description 01/14/2025 10:15 AM EDT Office Visit [facility] [address] [place], [place] [phone] Samina Fisher MD [address] [place], [place] [phone] documented as of this encounter Visit Diagnoses Diagnosis COPD with hypoxia (CMS/HCC)- Primary documented in this encounter
== END 2024-12-31 09:12 | disposition home or self-care (01) ==
LOC: HO.CT 09:11
PROVIDERS: PCP Nurse Practitioner Family; Visit Provider Nurse Practitioner Family
DX: Z87.01 Personal history of pneumonia (recurrent) (principal); D35.02 Benign neoplasm of left adrenal gland
CPT/HCPCS: 71250; 74150

== ENCOUNTER → 2024-12-31 09:13 | Outpatient (BNV) | payer MEDICARE, MEDICAID, SELFPAY | PROVIDERS: PCP Nurse Practitioner Family; Visit Provider Radiology Diagnostic Radiology | DX: D35.02 Benign neoplasm of left adrenal gland (principal); J43.2 Centrilobular emphysema | CPT/HCPCS: 71250; 74150 ==

== ENCOUNTER 2025-01-01 11:10 | Outpatient (AMB) | payer MEDICARE, MEDICAID, SELFPAY ==
--- NOTE | 2025-01-01 11:13 | A.OFFVIS_ITS ---
Vital Signs 01/01/25 11:14 Height 5 ft 4 in Weight 157 lb 6 oz BMI 27.0 BP 110/58 L Blood Pressure Location Rt brachial Position Sitting Pulse 83 Pulse Source Pulse Oximeter Pulse Oximetry (%) 93 Oxygen Delivery Method Nasal Cannula Oxygen Flow Rate 0.5 Intake Visit Reasons: COPD Allergies codeine Allergy (Verified 01/01/25 11:17) Unknown HPI HPI COPD: Details: Earlene is a pleasant 64-year-old female, former 40+ pack year smoker, quit 10 years ago with underlying COPD, HTN and h/o acute respiratory failure and sepsis due to multifocal PNA, complicated by takotsubo cardiomyopathy and atrial fibrillation 09/10-09/25/2024. Initially required 5 L nasal cannula satting 88% and transitioned to high-flow O2, ultimately discharged home on 2 L nasal cannula. She has been using 0.5L with exertion and NOC since the last visit, she does check oxygen saturation frequently decreasing to 87% with exertion otherwise maintains >92% at rest. She has been using Dulera and Spiriva with good effect. Denies cough, wheezing, chest tightness or dyspnea. She does note issues obtaining Spiriva, recently Incruse was approved and will switch to that. She has also been using DuoNeb once daily with good effect. She is scheduled for PFT 02/11 at [facility]. Today she presents to review chest CT results. [facility] Medical History (Updated 01/01/25 @ 11:51 by Lauren Cosby NP) Multifocal pneumonia No pertinent family history High cholesterol HTN (hypertension) Hx of mammogram (~2019) COPD exacerbation Urinary tract infection Surgical History (Updated 11/05/24 @ 16:55 by Aris Aburto NP) History of cardiac cath Hx of colonoscopy (~2014) Social History Household Members: Significant Other Both parents involved: No Caregiver staying overnight: No Housing: House Are you a primary career and guidance counselor to a significant other at home: No Do you presently have visiting nurse or other home services: No 75 years or older and lives alone: No Alcohol intake: current Alcohol intake frequency: a few times a week Patient Tobacco Use Status: Former Tobacco user e-Cigarette/Vaping Use: Never Used Second Hand Smoke Exposure: No service: No Cognitive needs: No Hearing needs: No Vision needs: Yes (wear glasses) Review of Systems Const Denies chills, Denies excessive sweating, Denies fever(s), Denies headache(s) and Denies night sweats Eyes Denies dry eyes, Denies irritation and Denies itchy eyes ENT Reports Normal hearing present, Denies headache(s), Denies nasal congestion, Denies nasal discharge, Denies post nasal drip and Denies sore throat Card Denies chest pain, Denies chest pain at rest, Denies chest pain with activity, Denies claudication, Denies leg edema, Denies dyspnea, Denies dyspnea on exertion, Denies orthopnea and Denies paroxysmal nocturnal dyspnea Resp Denies chest congestion, Denies cough, Denies excessive phlegm production, Denies pain on inspiration, Denies pain with cough, Denies dyspnea, Denies dyspnea on exertion, Denies stridor and Denies wheezing Musc Denies myalgias Neuro Reports Normal hearing present and Denies headache(s) Endo Denies excessive sweating James/Lymph Denies lymphadenopathy Aller/Immun Denies itchy eyes, Denies seasonal rhinorrhea and Denies wheezing Physical Exam Vital Signs: Last Vital Signs Pulse 83 01/01/25 11:14 BP 110/58 L 01/01/25 11:14 Pulse Ox 93 01/01/25 11:14 Oxygen Delivery Method Nasal Cannula 01/01/25 11:14 Oxygen Flow Rate 0.5 01/01/25 11:14 BMI result Body Mass Index 27.0 Const General: cooperative, healthy appearing, comfortable, no acute distress, well developed and alert Orientation/consciousness: patient oriented x3 Limitations: no limitations HEENT Head: Yes normal to inspection, Yes normocephalic and Yes atraumatic Ears: hearing grossly normal bilaterally and external ears normal Eyes General: appearance normal, both eyes and all related structures Eyelids: Yes eyelids normal Sclerae: sclerae normal EOM: EOMs intact bilaterally Neck Neck: Yes normal visual inspection and Yes no lymphadenopathy Lymphatic: no lymphadenopathy noted Chest Chest palpation & inspection: normal inspection of the chest Resp Effort & Inspection: normal respiratory effort, able to speak in complete sentences, no audible wheezes, no cough, no stridor, not tachypneic, no tripod positioning and no use of accessory muscles Auscultation: diminished lung sounds Cardio Jugular venous distension: no JVD Rate: regular rate Rhythm: regular rhythm Skin Other: warm, dry General skin exam: no rashes or lesions noted Neuro General: patient oriented x3 Cranial nerves: Yes Normal hearing present Cognition (Neuro): normal cognition Gait exam (Neuro): Normal gait present Extrem General: Yes normal to inspection, Yes capillary refill normal, Yes no clubbing, cyanosis or edema and Yes no pedal edema Psych Appearance: grossly normal and well kempt Speech and movement: Normal speech and movement present and Clear speech present Affect: normal affect Attitude: cooperative Thought process: Normal thought process present Thought content: Normal thought content present Insight: Good insight present (Psych) Judgement: Good judgement present (Psych) Office Procedures 6 Minute Walk Time:: 11:44 SPO2 % at rest: 93 Pulse at rest: 88 SPO2 % during excercise: 84 Pulse during excercise: 108 SPO2 % after excercise: 91 Pulse after excercise: 94 Distance in yards walked: 100 Performance Observations:: Patient walked on level ground unassisted. After 2 minutes O2 saturation dropped to 84% pulse of 108. O2 applied at 2L via nasal cannula and recovered to 94% and pulse 112. Patient finished the walk maintaining O2 saturation of 91-94%. Patient states she does not feel sob. Patient required the use of supplemental oxygen at 2L. [address]702 - 6 Minute Walk Results Reviewed Results Reviewed: [address] [address] [address] Scan Report Signed Patient: Earlene Causey MR#: [id number] : 1960 Acct:[id number] Age/Sex: 64 / F ADM Date: 12/31/24 Loc: HO.CT Attending Dr: Jonna ZAVALA Ordering Physician: Lauren Cosby NP Date of Service: 12/31/24 Procedure(s): CT chest wo IV con Accession Number(s): [id number] cc: Jonna Arteaga; Lauren Cosby NP~ Report Number: [id number]: Total DLP = 102.80 mGy-cm EXAMINATION: CT CHEST WITHOUT CONTRAST CLINICAL INFORMATION: Z87.01 - Personal history of pneumonia (recurrent) DLP: 267 mGY*cm COMPARISON: September 14, 2024 TECHNIQUE: Multidetector volumetric CT imaging of the chest was done. Axial MIP volume rendering provided. Sagittal and coronal reformatted images were obtained. This CT examination was performed using dose optimization techniques as appropriate, variously including the following: *Automated exposure control *Adjustment of mA and/or kV according to patient size (this includes techniques or standardized protocols for targeted exams where dose is matched to indication/reason for exam; i.e. extremities or head) *Use of iterative reconstruction technique FINDINGS: LUNGS: Moderate centrilobular emphysema is again noted. Multilobar opacities in the lungs and the prior examination have resolved. MEDIASTINUM: Trace pericardial effusion is new since the prior. Atherosclerotic calcifications are present in the aortic arch and descending thoracic aorta. CORONARY ARTERY CALCIFICATION: None visualized on this study. PLEURA: There is no pleural effusion. No pleural mass or thickening. AXILLA: No lymphadenopathy. OSSEOUS STRUCTURES: Unremarkable. CT/CT chest wo IV con IMPRESSION: Moderate centrilobular emphysema with interval resolution of multilobar pneumonia. New small pericardial effusion. Fleischner guidelines were followed. Electronically signed by: Sai Ordonez MD 12/31/2024 10:43 AM EDT Dictated By: Sai Ordonez MD Signed By: <Electronically signed by Sai Ordonez MD in OV> 12/31/24 1043 DD/ 0937 TD/TT: 12/31/24 1019 Calender Roll Operator: Assessment & Plan Assessment & Plan (1) COPD (chronic obstructive pulmonary disease): Code(s): J44.9 - Chronic obstructive pulmonary disease, unspecified Category: Medical Qualifiers: COPD type: chronic bronchitis Chronic bronchitis type: simple Qualified Code(s): J41.0 - Simple chronic bronchitis (2) History of acute respiratory failure: Code(s): Z87.09 - Personal history of other diseases of the respiratory system Category: Medical (3) History of recent pneumonia: Code(s): Z87.01 - Personal history of pneumonia (recurrent) Category: Medical (4) Personal history of tobacco use: Code(s): Z87.891 - Personal history of nicotine dependence Category: Social Hx Plan Reviewed chest CT which revealed moderate centrilobular emphysema and resolution of multilobar opacities in the lungs. There was also note of trace pericardial effusion, workload sent to cardiology. 6MWT performed, desaturated to 84% and patient continues to require 2L supplemental oxygen with exertion to maintain >92%. Will send for overnight oximetry on room air to assess continued need for supplemental oxygen at [facility]. At this time, she reports good control of respiratory symptoms using Dulera, LAMA and DuoNeb PRN. Will switch Spiriva to Incruse due to insurance coverage issues. PFT scheduled next month. All questions were answered and patient is in agreement of plan. Will follow-up in 2-3 months or sooner if needed. Orders: Orders AMB 6 minute walk Today R09.02 - Hypoxemia Overnight Pulse Oximetry Today G47.34 - Idiopathic sleep related nonobstructive alveolar hypoventilation, J41.0 - Simple chronic bronchitis, J96.01 - Acute respiratory failure with hypoxia Medications: New umeclidinium 62.5 mcg/actuation (Incruse Ellipta) 1 inh inhalation DAILY 30 ea 6RF Coding Level of Care Code Est Pt Level 4 (54568) Diagnoses Simple chronic bronchitis J41.0 COPD type: chronic bronchitis Chronic bronchitis type: simple History of acute respiratory failure Z87.09 History of recent pneumonia Z87.01 Personal history of tobacco use Z87.891 CPT Codes Coding ([id number])
[2025-01-01 11:14] VITALS: BP 110/58; PULSE 83; O2SAT 93; BMI 27.0
[2025-01-01 12:12] VITALS: PULSE 88; O2SAT 93
--- OUTSIDE RECORDS SUMMARY | 2025-01-01 12:25 | XMS_ITS | Clinical Summary ---
Author Organization [facility] Address [address] [place] [address] Care Team Providers Care Air Carrier Inspector Name Role Phone Unavailable Primary Care Provider Unavailabl e Medications Umeclidinium Leon (Incruse Ellipta) 62.5 MCG/ACT aerosol powderIndicatio ns:COPD with hypoxia (CMS/HCC) Inhale 1 Act (62.5 mcg) Once per day. 30 each 5 Active Dulera 100-5 MCG/ACT inhalerIndicati ons:COPD with hypoxia (CMS/HCC) 5 Active ipratropium-alb uterol (Duo-Neb) 0.5-2.5 mg/3 mL nebulizer solutionIndicat ions:COPD with hypoxia (CMS/HCC) INHALE 1 AMPULE USING A NEBULIZER THREE TIMES DAILY DIRECTED 5 Active Active Problems Problem Noted Date Diagnosed Date COPD with hypoxia 12/26/2024 Encounters Date Type Department Care Team Description 12/26/2024 Orders Only [facility] [address] [place] [phone] Toma Mcnally ANP COPD with hypoxia (CMS/HCC) (Primary Dx) from Last 3 Months Social History Tobacco Use Types Packs/Day Years Used Date Smoking Tobacco: Never Assessed Comments Unknown Sex and Gender Information Value Date Recorded Sex Assigned at Not on file Legal Sex Female 3:52 PM EDT Gender Identity Not on file Sexual Orientation Not on file Plan of Treatment Upcoming Encounters Date Type Department Care Team (Late Contact Info) Description 01/14/2025 10:15 AM EDT Office Visit [facility] [address] [place] [phone] Samina Fisher MD [address] [place], [place] [id number] Health Maintenance Due Date Last Done Comments CT Colonography 1960 Colonoscopy 1958 Colorectal Cancer Screening 1960 Depression Screening 1960 FIT DNA/Cologuard 1960 FIT 1960 FOBT 1960 SDOH Screening 1960 Sigmoidoscopy 1960 Alcohol/Substance Use Screening 1970 Tobacco Screening 1970 Hepatitis C Screening 1976 DTaP/Tdap/Td Vaccines (1 - Tdap) 1977 Pneumococcal Vaccine: 50+ Ye ars (1 of 2 - PCV) 1977 Mammogram 1998 Zoster Vaccines (1 of 2) 2008 RSV Patients and Pa tients Aged 60 years or older (1 - Risk 60-74 years 1-dose series) 2018 COVID-19 Vaccine ( - 2023-2 5 season) 2024 Influenza Vaccine (#1) 2025 HIB Vaccines Aged Out No longer eligi [...] patient's age to complete this topic Insurance [place] [id number] [facility]
== END 2025-01-01 13:01 | disposition home or self-care (01) ==
LOC: HO.HPSW 11:11
PROVIDERS: PCP Nurse Practitioner Family; Visit Provider Nurse Practitioner Family
DX: J41.0 Simple chronic bronchitis (principal); Z87.09 Personal history of other diseases of the respiratory system; Z87.01 Personal history of pneumonia (recurrent); Z87.891 Personal history of nicotine dependence
CPT/HCPCS: 94618; 99214

== ENCOUNTER → 2025-01-01 11:10 | Outpatient (BNVA) | payer MEDICARE, OTHER, SELFPAY | PROVIDERS: PCP Nurse Practitioner Family; Visit Provider Nurse Practitioner Family | DX: J41.0 Simple chronic bronchitis (principal); Z87.09 Personal history of other diseases of the respiratory system; Z87.01 Personal history of pneumonia (recurrent); Z87.891 Personal history of nicotine dependence; G47.34 Idiopathic sleep related nonobstructive alveolar hypoventilation | CPT/HCPCS: 94618; 99212 ==

== ENCOUNTER 2025-01-07 13:08 | Outpatient (AMB) | payer MEDICARE, SELFPAY ==
--- NOTE | 2025-01-07 13:11 | A.OFFPC_ITS ---
Vital Signs 01/07/25 13:21 Height 5 ft 4 in Weight 158 lb 4 oz BMI 27.2 BP 98/65 Blood Pressure Location Lt brachial Position Sitting Respiration 12 Pulse 58 Pulse Source Pulse Oximeter Temp 97.1 F Temp Source Oral Pulse Oximetry (%) 97 Oxygen Delivery Method Room Air Intake Visit Reasons: 6 weeks 30 min fu sertraline increase/ct adrenals Intake Note: Follow up on med increase and review imaging. Semiconductor Assembler Required: No Allergies codeine Allergy (Verified 01/07/25 13:40) Unknown Medication List - Last Reconciled 01/07/25 by Jonna Arteaga, CHIEF SALES OFFICER- albuterol sulfate 90 mcg/actuation (Ventolin HFA) 2 puffs inhalation RQ4H PRN aspirin 81 mg PO DAILY atorvastatin 80 mg PO BEDTIME furosemide 20 mg PO DAILY ipratropium-albuterol 0.5 mg-3 mg(2.5 mg base)/3 mL 3 mL inhalation TID 90 days metoprolol tartrate 12.5 mg (1/2 x 25 mg) PO BID mometasone-formoterol 100-5 mcg/actuation (Dulera) 2 puffs inhalation BID omeprazole 20 mg PO DAILY sertraline 50 mg PO DAILY tiotropium bromide 2.5 mcg/actuation 2 inhalations inhalation QAM tiotropium bromide 2.5 mcg/actuation (Spiriva Respimat) 2 puffs inhalation DAILY tiotropium bromide (Spiriva with HandiHaler) 1 cap inhalation DAILY umeclidinium 62.5 mcg/actuation (Incruse Ellipta) 1 inh inhalation DAILY valsartan 20 mg (1/2 x 40 mg) PO BID Tobacco use date assessed: 01/07/25 Fall risk assessment: No Falls in past year Last assessed Fall Risk: 01/07/25 Dental Screening Dental Screen Date: 01/07/25 Did you have a dental visit in the last 12 months?: Yes Did you have a dental problem in the last 6 months where you did not have access to dental care?: No Was dental information given to patient?: Patient has dentist HPI HPI Comments History of Present Illness Details 64 yo female with L adrenal adenoma 9mm (CT 08/2024) former smoker quit 10 to 12 years ago, COPD on home O2,hx of sepsis due to multifocal PNA, HFrEF/takotsubo cardiomyopathy, CAD, NSTEMI 2024, Paroxysmal AF, Adjustment disorder History of Present Illness - The patient is a 64-year-old female pr esenting with a follow-up for depression management. - Depression management involved increas ing sertraline and initiating counseling; positive response noted but emotional instability persists. - Benign lipid-rich adrenal adenoma conf irmed; no further evaluation necessary. - Housing instability; moving in with a friend. - Daughter?s 's tongue carcinoma requires additional resection despite initial improvements. - Cardiac concerns involve pericardial e ffusion, further cardiac evaluation scheduled. - COPD medication issues persist with in haler procurement, administrative obstacles being addressed. - Failure in a previous walk test; activ e w/ Pulm - Mammogram and bone density studies ord ered for preventive health screening. - Reviewed RSV and PCV recommendations t luzmaria Review of Systems - Psychiatric: Reports improved mood wit h occasional emotional instability, engaging in counseling. - Endocrine: Denies symptoms related to adrenal adenoma. - Respiratory: Reports issues with COPD medication access. - Musculoskeletal: Denies joint pain, sw elling, or other issues. - General: Reports unstable housing situ ation. Physical Exam General: Well developed, well nourished, in no acute distress. Appears stated age. Head: Normocephalic, atraumatic. Eyes: Pupils are equal, round and reactive to light and accommodation. Conjunctivae are clear. Lungs: Diminished breath sounds. 02 1L Heart: Regular rate and rhythm. No murmurs, click, rubs or gallops are noted. Pulses: Peripheral pulses are equal and palpable bilaterally. Extremities: No clubbing, cyanosis nor edema is noted. Psych: Mood and affect appropriate Results - Imaging: CT Scan results indicate a be nign lipid-rich adrenal adenoma. Discussion Notes During the visit, we reviewed the current dosage of sertraline at 50 mg, which the patient finds beneficial, with continued emotional resources through counseling. We discussed the implications of her benign lipid-rich adrenal adenoma, concluding no further diagnostic workup is required, and reassured her on this. Furthermore, we covered the issues surrounding her living situation and suggested that her move with her friend Gigi posed a temporary solution. . Concerning COPD management and fluid retention, I highlighted ongoing ad ministrative efforts to resolve medication access issues and planned for additional cardiac imaging due the findings. Routine preventive screenings for breast cancer and bone health were ordered given the patient?s age. The patient consented to the treatment plan and follow-ups for achieving optimal control over her conditions. Assessment and Plan 1. Major Depressive Disorder - Continue sertraline 50 mg. - Continue counseling. - Monitor symptoms. 2. Benign Lipid-Rich Adrenal Adenoma - No further workup. 3. PTSD - Continue counseling. 4. Unstable Housing Situation - Move with a friend. 5. Family-associated stress - Provide support. 6. Mammo/Dexa ordered. RSV and PCV edu p rovided. RTO 6-8 WEEKS SAWV AND TO FU ON MOOD, SOONER PRN Patient Instructions - Continue taking sertraline 50 mg daily . - Attend all scheduled counseling sessio ns and engage actively. - Keep track of any changes in your mood or behavior. - Follow up on fluid retention evaluatio n when contacted. - Follow a healthy lifestyle, maintain s ocial support. - Contact support services for COPD medi cation issues. - Ensure you schedule and attend a follo w-up echo as instructed. Consent Patient was informed and verbally consented to the use of an ambient scribe for clinic note documentation during this visit. Total time spent caring for the patient today was 30 minutes. This includes time spent before the visit reviewing the chart, time spent during the visit, and time spent after the visit on documentation, reviewing laboratory results, diagnostic imaging, medications, performing a medically necessary evaluation, counseling on diagnoses, care coordination, ordering appropriate tests, ordering appropriate medications, review of tests performed by other providers, reporting test results with the patient, communication with other healthcare providers. [facility] Medical History (Updated 01/07/25 @ 14:03 [address] Jonna Arteaga [facility]) COPD exacerbation High cholesterol HTN (hypertension) Hx of mammogram (~2019) Multifocal pneumonia No pertinent family history Urinary tract infection Surgical History (Updated 11/05/24 @ 16:55 by Aris Aburto NP) History of cardiac cath Hx of colonoscopy (~2014) Social History Household Members: Significant Other Both parents involved: No Caregiver staying overnight: No Housing: House Are you a primary account executive healthcare to a significant other at home: No Do you presently have visiting nurse or other home services: No 75 years or older and lives alone: No Alcohol intake: current Alcohol intake frequency: a few times a week Patient Tobacco Use Status: Former Tobacco user e-Cigarette/Vaping Use: Never Used Second Hand Smoke Exposure: No service: No Cognitive needs: No Hearing needs: No Vision needs: Yes (wear glasses) Questionnaire Thrive Questionnaire Date Thrive assessed: 10/02/24 I am a: Patient What is your living situation today?: I have a steady place to live Within the past 12 months, did the food you bought not last and you didn't have the money to get more?: Never true Within the past 12 months, did you worry whether your food would run out before you got money to buy more?: Never true Do you have trouble paying for medicines?: Yes Do you have trouble getting transportation to medical appointments?: No Do you have trouble paying your heating and electricity bill?: No Do you have trouble taking care of your child, family member or friend?: No Do you have trouble with day-to-day activities such as bathing, preparing meals, shopping, managing finances, etc.?: No Are you currently unemployed and looking for a job?: No Are you interested in more education?: No Please select the resources that you would like help with: Paying for medicine Currently or been in a relationship where the following occur: No concerns reported THRIVE Score: 0 GENEVIEVE-7 AMB Questionnaire GENEVIEVE-7 Date GENEVIEVE - 7 assessed: 10/04/24 Source: Developed by Drs. Adama Rizvi, Debi Dye, Deric Sorenson and colleagues, with an educational ca from [employer]. Physical exam (Primary Care) Vital Signs: Last Vital Signs Temp 97.1 F 01/07/25 13:21 Pulse 58 01/07/25 13:21 Resp 12 01/07/25 13:21 BP 98/65 01/07/25 13:21 Pulse Ox 97 01/07/25 13:21 Oxygen Delivery Method Room Air 01/07/25 13:21 BMI result Body Mass Index 27.2 Tobacco/Smoking Status: Tobacco use Status Tobacco use date assessed 01/07/25 01/07/25 13:14 Patient Tobacco Use Status Former Tobacco user 01/07/25 13:12 e-Cigarette/Vaping Use Never Used 01/07/25 13:12 Thrive Assessment: Date of Thrive Assessment Date Thrive assessed 10/02/24 01/07/25 13:12 Currently or been in a relationship where the following occur: No concerns reported Results Reviewed Results Reviewed: [address] [place] [id number] Scan Report Signed Patient: Earlene Causey MR#: [id number] : 1960 Acct:[id number] Age/Sex: 64 / F ADM Date: 12/31/24 Loc: HO.CT Attending Dr: Jonna ZAVALA Ordering Physician: Jonna Arteaga Date of Service: 12/31/24 Procedure(s): CT abdomen wo IV con Accession Number(s): [id number] cc: Jonna Arteaga~ Report Number: [id number]: Total DLP = 164.40 mGy-cm EXAMINATION: CT ABDOMEN WITHOUT CONTRAST CLINICAL INFORMATION: D35.02 - Benign neoplasm of left adrenal gland COMPARISON: September 19, 2024 DLP: 267 mGY*cm TECHNIQUE: Contiguous axial thin section helical images of the abdomen were performed without contrast. The data set was reformatted in the coronal and sagittal planes and reviewed on an independent workstation. This CT examination was performed using dose optimization techniques as appropriate, variously including the following: *Automated exposure control *Adjustment of mA and/or kV according to patient size (this includes techniques or standardized protocols for targeted exams where dose is matched to indication/reason for exam; i.e. extremities or head) *Use of iterative reconstruction technique FINDINGS: LIVER, GALLBLADDER, BILIARY TREE: Liver is unremarkable. Gallbladder is within normal limits as well. PANCREAS: There t is an angled linear density in the body of the pancreas that was present on the prior examination and could represent calcification. It appears unchanged. It measures 12 mm long axis. SPLEEN: Unremarkable ADRENAL GLANDS AND KIDNEYS: There is a 12 mm left adrenal gland nodule that measures -10 Hounsfield units diagnostic of a benign lipid rich adrenal adenoma. Right adrenal gland is unremarkable. Kidneys are unremarkable. No stones are present. There is no hydronephrosis. BOWEL LOOPS: Visualized bowel loops are unremarkable. LYMPH NODES: Normal. VASCULAR: Unremarkable. BONES: Unremarkable CT/CT abdomen wo IV con IMPRESSION: 12 mm lipid rich adrenal adenoma on the left. No further radiologic workup is necessary. Fleischner guidelines were followed. Electronically signed by: Sai Ordonez MD 12/31/2024 10:53 AM EDT RP Coding Level of Care Code Est Pt Level 4 (13122) Complex EM visit Add On G2211 Diagnoses Mild episode of recurrent major depressive disorder F33.0 Major depression episode severity: mild 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 Laterality: left Menopause Z78.0 Screening mammogram for breast cancer Z. Simple chronic bronchitis J41.0 COPD type: chronic bronchitis Chronic bronchitis type: simple Acute hypoxemic respiratory failure J96.01 Immunization counseling Z71.85 Assessment & Plan Assessment & Plan (1) MDD (major depressive disorder), recurrent episode: Code(s): F33.9 - Major depressive disorder, recurrent, unspecified Category: Medical Qualifiers: Major depression episode severity: mild Qualified Code(s): F33.0 - Major depressive disorder, recurrent, mild (2) Adrenal adenoma: Onset Date: ~08/2024 Comment: [address] scan 12/2024 12 mm lipid rich adrenal adenoma on the left. No further radiologic workup is necessary. Code(s): D35.00 - Benign neoplasm of unspecified adrenal gland Category: Medical Qualifiers: Laterality: left Qualified Code(s): D35.02 - Benign neoplasm of left adrenal gland (3) Menopause: Code(s): Z78.0 - Asymptomatic menopausal state Category: Medical (4) Screening mammogram for breast cancer: Code(s): Z12.31 - Encounter for screening mammogram for malignant neoplasm of breast Category: Medical (5) COPD (chronic obstructive pulmonary disease): Code(s): J44.9 - Chronic obstructive pulmonary disease, unspecified Category: Medical Qualifiers: COPD type: chronic bronchitis Chronic bronchitis type: simple Qualified Code(s): J41.0 - Simple chronic bronchitis (6) Acute hypoxemic respiratory failure: Code(s): J96.01 - Acute respiratory failure with hypoxia Category: Medical (7) Immunization counseling: Code(s): Z71.85 - Encounter for immunization safety counseling Plan , Orders: Orders MM tomosynthesis screening BI Today Z12.31 - Encounter for screening mammogram for malignant neoplasm of breast XR DEXA axial skeleton Today Z13.820 - Encounter for screening for osteoporosis, Z78.0 - Asymptomatic menopausal state Medications: Refilled sertraline 50 mg PO DAILY 90 tabs 1RF
[2025-01-07 13:21] VITALS: BP 98/65; PULSE 58; RESP 12; TEMP 36.2; O2SAT 97; BMI 27.2
--- OUTSIDE RECORDS SUMMARY | 2025-01-07 14:30 | XMS_ITS | Clinical Summary ---
Author Organization [facility] Address [address] [facility] 7 [place] [address] Care Team Providers Care Senior Information Security Consultant Name Role Phone Unavailable Primary Care Provider Unavailabl e Medications Umeclidinium [place] (Incruse Ellipta) 62.5 MCG/ACT aerosol powderIndicatio ns:COPD [...] Encounters Date Type Department Care Team Description 01/07/2025 Patient Outreach [facility] [address] [place] [address] Samina Fisher MD Pre-visit Planning ([facility] unable to reach [facility] ) 12/26/2024 Orders Only [facility] [address] [place] [id number] Toma Mcnally ANP COPD with hypoxia (CMS/HCC) [...] Upcoming Encounters Date Type Department Care Team ([facility] Contact Info) Description 01/14/2025 10:15 AM EDT Office Visit [address] [address] Samina Fisher MD [address] [place] [address] Health Maintenance Due Date Last Done Comments [...] age to complete this topic Insurance MEDICARE [facility] F[facility]
== END 2025-01-07 13:58 | disposition home or self-care (01) ==
LOC: HO.HMCFM 13:10
PROVIDERS: Visit Provider Nurse Practitioner Family
DX: J41.0 Simple chronic bronchitis (principal); J96.01 Acute respiratory failure with hypoxia; F33.0 Major depressive disorder, recurrent, mild; D35.02 Benign neoplasm of left adrenal gland; Z78.0 Asymptomatic menopausal state; Z12.31 Encounter for screening mammogram for malignant neoplasm of breast; Z71.85 Encounter for immunization safety counseling

== ENCOUNTER → 2025-01-07 13:08 | Outpatient (BNVA) | payer MEDICARE, OTHER, SELFPAY | PROVIDERS: Visit Provider Nurse Practitioner Family | DX: F33.0 Major depressive disorder, recurrent, mild (principal); I42.9 Cardiomyopathy, unspecified; I25.10 Atherosclerotic heart disease of native coronary artery without angina pectoris; I25.2 Old myocardial infarction; I48.0 Paroxysmal atrial fibrillation; F43.10 Post-traumatic stress disorder, unspecified; D35.02 Benign neoplasm of left adrenal gland; J41.0 Simple chronic bronchitis; J96.01 Acute respiratory failure with hypoxia; Z71.85 Encounter for immunization safety counseling; Z99.81 Dependence on supplemental oxygen; Z87.891 Personal history of nicotine dependence; Z63.8 Other specified problems related to primary support group; Z78.0 Asymptomatic menopausal state | CPT/HCPCS: 99212 ==

== ENCOUNTER 2025-02-04 11:43 | Outpatient (REF) | payer MEDICARE, MEDICAID, SELFPAY ==
--- OUTSIDE RECORDS SUMMARY | 2025-02-04 14:45 | XMS_ITS ---
Author Name [facility] Organization Unknown Care Team Organization Name Specialty Phone Email Start Date End Da rosalind [facility] RICKY RIVAS Primary Care 05/03/2022 02/12/20 24
[2025-02-04 14:48] LABS: Alanine Aminotransferase 39 U/L (0-31); Albumin Level 4.7 g/dL (3.5-5.0); Alkaline Phosphatase 119 U/L (39-117); Anion Gap 14 (12-20); Aspartate Amino Transferase 29 U/L (5-31); Blood Urea Nitrogen 13 mg/dL (9-16); Calcium 9.7 mg/dL (8.4-10.2); Carbon Dioxide 31 mmol/L (22-29); Chloride 100 mmol/L (96-108); Cholesterol 117 mg/dL (<200); Estimated Glomerular Filt Rate > 60; HDL Cholesterol 60 mg/dL (>40); Potassium 4.0 mmol/L (3.3-5.1); Sodium 141 mmol/L (135-145); Total Protein 7.1 g/dL (6.5-8.0); Triglycerides 58 mg/dL (<150)
== END 2025-02-04 11:44 | disposition home or self-care (01) ==
LOC: HO.LAB 11:43
PROVIDERS: Visit Provider Physician Assistant Medical
DX: H10.33 Unspecified acute conjunctivitis, bilateral (principal); I21.4 Non-ST elevation (NSTEMI) myocardial infarction; Z87.891 Personal history of nicotine dependence; Z79.899 Other long term (current) drug therapy
CPT/HCPCS: 36415; 80048; 80061; 80076; 99212

== ENCOUNTER 2025-02-04 11:43 | Outpatient (AMB) | payer MEDICARE, MEDICAID, SELFPAY ==
--- OUTSIDE RECORDS SUMMARY | 2025-02-04 12:44 | XMS_ITS | Clinical Summary ---
Author Organization [facility] Address [address] [facility] 7 [place] [address] Care Team Providers Care Legal Adviser Name Role Phone Unavailable Primary Care Provider Unavailabl e Medications Umeclidinium [place] (Incruse Ellipta) 62.5 MCG/ACT aerosol powderIndicatio ns:COPD [...] Encounters Date Type Department Care Team Description 01/13/2025 Telephone [facility] [address] [place] [phone] Samina Fisher MD Chart Prep 01/07/2025 Patient Outreach [facility] [address] [place], [place] [phone] Samina Fisher MD Pre-visit Planning ([facility] unable to reach [facility] ) 12/26/2024 Orders Only [facility] [address] [place] [address] Toma Mcnally ANP COPD with hypoxia (CMS/HCC) (Primary Dx) from Last 3 Months Immunizations Immunization Administration Dates Next Due Influenza, IIV3, injectable 04/23/2018 Social History Tobacco Use Types Packs/Day Years Used Date Smoking Tobacco: Never Assessed Comments Unknown Sex and Gender Information Value Date Recorded Sex Assigned at Female 01/13/2025 10:22 AM EDT Legal Sex Female 3:52 PM EDT Gender Identity Female 01/13/2025 10:22 AM EDT Sexual Orientation Choose not to disclose 2024 10:22 AM EDT Plan of Treatment Health Maintenance Due Date Last Done Comments CT Colonography 1960 Colonoscopy 1960 Colorectal Cancer Screening 1960 Depression Screening 1960 FIT DNA/Cologuard 1960 FIT 1960 FOBT 1960 Lipid Panel 1960 SDOH Screening 1960 Sigmoidoscopy 1960 Alcohol/Substance Use Screening 1970 Tobacco Screening 1970 Hepatitis C Screening 1976 DTaP/Tdap/Td Vaccines (1 - Tdap) 1977 Pneumococcal Vaccine: 50+ Ye ars (1 of 2 - PCV) 1977 Mammogram 1998 Zoster Vaccines (1 of 2) 2008 RSV Patients and Pa tients Aged 60 years or older (1 - Risk 60-74 years 1-dose series) 2018 COVID-19 Vaccine (2023-2 5 season) 2024 Influenza Vaccine (#1) 2025 04/23/2018 HIB Vaccines Aged Out No longer eligi [...] patient's age to complete this topic Insurance [facility] FULL BCBS [place] REPLAC[place] PPO
[2025-02-04 12:45] VITALS: BP 122/72; PULSE 76; TEMP 36.3; O2SAT 96; BMI 26.8
--- NOTE | 2025-02-04 12:45 | AM.OFFWIN_ITS ---
Intake Vital Signs 02/04/25 12:45 Height 5 ft 4 in Weight 156 lb 2 oz BMI 26.8 BP 122/72 Blood Pressure Location Lt brachial Position Sitting Pulse 76 Pulse Source Pulse Oximeter Temp 97.3 F Temp Source Oral Pulse Oximetry (%) 96 Oxygen Delivery Method Room Air Intake Visit Reasons: EP-pink eyes Patient Tobacco Use Status: Former Tobacco user Implementation Services Analyst Required: No Is last menstrual period known: No Post menopausal: Yes Patient : No Allergies codeine Allergy (Verified 02/04/25 12:50) Unknown Do you need a note to return to daycare/school/sports/work: No HPI HPI Comments History of Present Illness Details History of Present Illness - The patient is a 64-year-old female pr esenting with symptoms of allergic conjunctivitis. - Symptoms began suddenly, approximately one to two days ago, with significant e ye itching and crusting in the morning. - The patient takes an allergy pill анна y, suggesting a history of allergic reactions. - No associated symptoms such as blurry vision, ear pain, sore throat, cough, or fever were reported. - She is on home oxygen. - She denies chills, SINGH, or sick contact s. Physical Exam General: Cooperative, healthy appearing, comfortable, no acute distress and well developed Orientation: Patient oriented x3 Limitations: No limitations Head: Normal to inspection Ears: Hearing grossly normal bilaterally Nose: Normal external nose present Face and sinus: Normal facial exam Eyes: PERRLA, EOMI. Sclera is white, conjunctiva is pink bilaterally. No discharge noted. Respiratory: Normal respiratory effort and able to speak in complete sentences. Clear to auscultation bilaterally, no cough Cardiovascular: Regular rate and rhythm. Normal S1 and S2 Patient was informed and verbally consented to the use of an ambient scribe for clinic note documentation during this visit. REPLACED BY [facility] Medical History (Updated 01/07/25 @ 14:03 by MIKY Holman-RAFIA) Multifocal pneumonia No pertinent family history High cholesterol HTN (hypertension) Hx of mammogram (~2019) COPD exacerbation Urinary tract infection Surgical History (Updated 11/05/24 @ 16:55 by Aris Aburto NP) History of cardiac cath Hx of colonoscopy (~2014) Social History Household Members: Significant Other Both parents involved: No Caregiver staying overnight: No Housing: House Are you a primary care team coordinator scheduler to a significant other at home: No Do you presently have visiting nurse or other home services: No 75 years or older and lives alone: No Alcohol intake: current Alcohol intake frequency: a few times a week Patient Tobacco Use Status: Former Tobacco user e-Cigarette/Vaping Use: Never Used Second Hand Smoke Exposure: No Patient : No service: No Cognitive needs: No Hearing needs: No Vision needs: Yes (wear glasses) Review of Systems Const All systems reviewed & are unremarkable except as noted in HPI and below Physical Exam Vital Signs: Last Vital Signs Temp 97.3 F 02/04/25 12:45 Pulse 76 02/04/25 12:45 BP 122/72 02/04/25 12:45 Pulse Ox 96 02/04/25 12:45 Oxygen Delivery Method Room Air 02/04/25 12:45 BMI result Body Mass Index 26.8 Assessment & Plan Assessment & Plan (1) Conjunctivitis: Code(s): H10.9 - Unspecified conjunctivitis Qualifiers: Conjunctivitis type: acute Acute conjunctivitis type: unspecified Laterality: bilateral Qualified Code(s): H10.33 - Unspecified acute conjunctivitis, bilateral Plan Most likely conjunctivitis vs allergies Plan - Advised good hand hygiene - Prescribe ophthalmic drops for both eyes to manage symptoms of allergic conjunctivitis. - Advise the patient to wash pillowcases and maintain hygiene to prevent recurrence. Medications: New polymyxin B sulf-trimethoprim 10,000 unit- 1 mg/mL while awake 1 drp ophthalmic (eye) QID 10 mL 0RF 5 days Coding Level of Care Code Est Pt Level 3 (25546) Diagnoses Acute conjunctivitis of both eyes, unspecified acute conjunctivitis type H10.33 Conjunctivitis type: acute Acute conjunctivitis type: unspecified Laterality: bilateral
== END 2025-02-04 13:20 | disposition home or self-care (01) ==
PROVIDERS: Visit Provider Physician Assistant Medical
DX: H10.33 Unspecified acute conjunctivitis, bilateral (principal)

== ENCOUNTER 2025-02-13 10:18 | Outpatient (REF) | payer MEDICARE, MEDICAID, SELFPAY ==
--- NOTE | 2025-02-13 10:25 | PFT_ITS ---
Indication: Bronchitis Spirometry FEV1 to FVC 56%; FEV1 1.74 L; FVC 3.09 L. No significant response to bronchodilators noted. Of note the FEF 11/12/2074 decreased down to 24% predicted Lung Volumes Total lung capacity 89% predicted; residual volume 79% predicted Diffusion Capacity DLCO 46% predicted Comparisons None Interpretation There is an obstructive ventilatory defect consistent with moderate COPD. No significant response to bronchodilators noted. Significant small airways disease noted. Lung volumes are within normal limits. The patient does have a moderate to severe diffusion impairment likely secondary to emphysematous changes and order the parenchymal lung conditions should be considered. Clinical correlation warranted. Should correct for hemoglobin. MTDD
[2025-02-13 11:16] VITALS: PULSE 74; O2SAT 98
--- OUTSIDE RECORDS SUMMARY | 2025-02-13 11:47 | XMS_ITS | Encounter Summary ---
Author Organization [facility] Address [address] [place] [address] Care Team Providers Care Wool Sampler Name Role Phone Oren Roberson MD Primary Care Provider [phone] Encounter Details Date Type Department Care Team Description 10/21/2022 Orders Only [facility] Lung Screening Program [place] [address] [facility] [address] [place] [address] Jamey Reaves MD [address] [facility] [address] [place] [address] History of tobacco abuse Social History Tobacco Use Types Packs/Day Years Used Date Smoking Tobacco: Former Cigarettes 1 40 Q uit: 06/05/2015 Smokeless Tobacco: Never Alcohol Use Standard Drinks/Week Comments Yes 12 (1 standard drink = 0.6 oz pu re alcohol) weekly Sex Assigned at Date Recorded Not on file documented as of this encounter Plan of Treatment Not on file documented as of this encounter Procedures Procedure Name Priority Date/Time Associated Diagnosis Comments CT LOW DOSE LUNG SCREEN ANNUAL Routine 10/16/2022 History of tobacco abuse documented in this encounter Results * CT LOW DOSE LUNG SCREEN ANNUAL (10/16/2022) Jamey Reaves MD CT SCANS documented in this encounter Visit Diagnoses Diagnosis History of tobacco abuse Personal history of tobacco use, presenting hazards to health documented in this encounter Care Teams Wool Sampler Relationship Specialty Start Date End Date Oren Roberson MD PCP - General Internal Medicine 06/04/18 documented as of this encounter
--- OUTSIDE RECORDS SUMMARY | 2025-02-13 11:47 | XMS_ITS | Clinical Summary ---
Author Organization [facility] Address [address] [place] [address] Care Team Providers Care Network Lead Name Role Phone Unavailable Primary Care Provider Unavailabl e Medications Umeclidinium [place] (Incruse Ellipta) 62.5 MCG/ACT aerosol powderIndicatio ns:COPD [...] Type Department Care Team Description 01/13/2025 Telephone [facility] [address] [place] [phone] Samina Fisher MD Chart Prep 01/07/2025 Patient Outreach [facility] [address] [place], [place] [phone] Samina Fisher MD Pre-visit Planning ([facility] unable to reach [facility] ) 12/26/2024 Orders Only [facility] [address] [place] [address] Toma Mcnally ANP COPD with [...] patient's age to complete this topic Insurance [facility] F[employer] [place] [employer]AC[place] PPO
== END 2025-02-13 10:19 | disposition home or self-care (01) ==
LOC: HO.RESP 10:18
PROVIDERS: PCP Nurse Practitioner Family; Visit Provider Nurse Practitioner Family
DX: J41.0 Simple chronic bronchitis (principal)
CPT/HCPCS: 94010; 94640; 94727; 94729

== ENCOUNTER → 2025-02-13 10:25 | Outpatient (BNV) | payer MEDICARE, MEDICAID, SELFPAY | PROVIDERS: PCP Nurse Practitioner Family; Visit Provider Hospitalist | DX: J44.9 Chronic obstructive pulmonary disease, unspecified (principal) | CPT/HCPCS: 94060; 94727; 94729 ==

== ENCOUNTER 2025-02-21 10:00 | Outpatient (AMB) | payer MEDICARE, MEDICAID, SELFPAY ==
--- NOTE | 2025-02-21 10:03 | AM.OFFVISMDC ---
Intake Vital Signs 02/21/25 10:26 Height 5 ft 4 in Weight 155 lb 4 oz BMI 26.6 BP 106/58 L Blood Pressure Location Lt brachial Position Sitting Respiration 12 Pulse 85 Pulse Source Pulse Oximeter Temp 97.7 F Temp Source Temporal Artery Scan Pulse Oximetry (%) 97 Oxygen Delivery Method Room Air Intake Visit Reasons: 6- 8 WEEKS SAWV/FU MOOD Intake Note: Earlene presents in the office today for her Medicare Wellness Visit. Allergies codeine Allergy (Verified 02/21/25 10:59) Unknown Medication List - Last Reconciled 02/21/25 by Jonna Arteaga, [facility]- albuterol sulfate 90 mcg/actuation (Ventolin HFA) 2 puffs inhalation RQ4H PRN aspirin 81 mg PO DAILY atorvastatin (Lipitor) 20 mg PO DAILY furosemide 20 mg PO DAILY ipratropium-albuterol 0.5 mg-3 mg(2.5 mg base)/3 mL 3 mL inhalation TID 90 days metoprolol tartrate 12.5 mg (1/2 x 25 mg) PO BID mometasone-formoterol 100-5 mcg/actuation (Dulera) 2 puffs inhalation BID omeprazole 20 mg PO DAILY polymyxin B sulf-trimethoprim 10,000 unit- 1 mg/mL 1 drp ophthalmic (eye) QID 5 days sertraline 50 mg PO DAILY umeclidinium 62.5 mcg/actuation (Incruse Ellipta) 1 inh inhalation DAILY valsartan 20 mg (1/2 x 40 mg) PO BID Post menopausal: Yes Do you need a note to return to daycare/school/sports/work: No HPI HPI Comments History of Present Illness Details 64 yo female with L adrenal adenoma 9mm (CT 08/2024) former smoker quit 10 to 12 years ago, COPD on home O2,hx of sepsis due to multifocal PNA, HFrEF/takotsubo cardiomyopathy, CAD, NSTEMI 2024, Paroxysmal AF, Adjustment disorder, MDD, prediabetes Here today for AWV. The Medicare Annual Wellness Visit (AWV) is a yearly appointment with a health professional to identify health risks and help reduce them and to create or update a personalized prevention plan. During a Medicare AWV, health professionals should also review any current opioid prescriptions, detect any cognitive impairment, and establish or update medical and family history. SurgHx: None FHx: Denies cancer hx; Mom w/ heart valve dz. Brother w/ afib. SocHx: Lives w/ friend. Health Maintenance: See scanned preventative medicine assessment with personalized health plan and screening schedule. Colon: done years ago, [place], maybe in 2017. Juan try to get record Mammo ordered DEXA ordered PAP aged out Vaccines: Tdap today (01/2025), PCV due AAA screen: Echo completed in past EKG: NSR [place] of Care: cards pulm counseling Visual Acuity: glasses, last exam 2 weeks ago. Hearing Screening: No issues ACP: MOLST, HCP provided today and reviewed Dietary/Nutrition/Exercise Edu provided: Y During the course of the visit the patient was educated and counseled about appropriate screening and preventative services. Patient instructions were provided to the patient in written or electronic format. I have reviewed and verified the above information. History of Present Illness - The patient is a 64-year-old female presenting with an annual Medicare wellness exam and upper respiratory symptoms. - COPD managed with home O2 and inhalers. Active w Pulm. HAd overnight oximetery, does not think results were accurate. I advised for her to fu with Pulm about this - Coronary Artery Disease and heart failure managed on current meds and by Cards. - Anxiety and depression treated with sertraline. Improved but cont w/ sx. Would like to increase from 50 to 75 mg. - Reports chronic GERD. on PPI - URI sx started about 10 days ago. - Symptoms for sinusitis started with headache, followed by nasal congestion and throat soreness. - History of pink eye treated with antibiotic eye drops 02/04/25. Walk in note reviewed. Health Maintenance - Mammogram and bone density tests ordered, results pending. - Last colonoscopy in 2016, considering update due to record acquisition challenges. - Pap smear status discussed, patient over age of 65 and unsure to continue. - Tetanus shot was recommended during the visit. - Pneumococcal, influenza, and RSV vaccines discussed as necessary updates. - Shingles vaccine completed at [facility]. - Health proxy and MOLST papers given for completion. Review of Systems - Constitutional: Reports feeling under the weather. - Eyes: Vision exam two weeks ago, no current issues reported. - ENT: Reports low-grade headache, nasal congestion, sore throat; denies ear pain. - Cardiovascular: Denies chest pain during visit, regular follow-ups with semiconductor packages sealer. - Respiratory: Reports exposure to pulmonary function tests, uses home O2. - Gastrointestinal: Denies active GERD symptoms during visit. - Genitourinary: Denies urinary issues. - Musculoskeletal: No current joint or muscle issues reported. - Neurological: Denies dizziness, syncope. - Psychiatric: Anxiety and depression managed and stable. - Endocrine: Denies thyroid issues. - Hematologic/Lymphatic: No bleeding disorders reported. - Immunologic: Allergy to codeine reported. Physical Exam General: Well developed, well nourished, in no acute distress. Appears stated age. Head: Normocephalic, atraumatic. Eyes: Pupils are equal, round and reactive to light and accommodation. Conjunctivae are clear. Vision grossly normal. Ears: TMs clear AU, EACS WNL. No problems with hearing. Nose: Patent, with yellowish discharge noted. Sinus congestion and tenderness noted. Pharynx: + PND and Thrush Neck: Supple, no adenopathy or thyromegaly. Breast: Edu on SBE. Lungs: Clear to auscultation bilaterally. No rales, rhonchi or wheeze noted. Dim in all milian. Patient on home O2 for COPD. Heart: Regular rate and rhythm. No murmurs, click, rubs or gallops are noted. EKG today was perfect. Abdomen: Bowel sounds present in all quadrants. The abdomen is soft, nontender, with no masses or organomegaly noted. No hernias are noted. : Deferred. Reviewed recommendations for routine COVERAGE ANALYST. Pap smears have not been done in a long time, no history of abnormal results. Pulses: Peripheral pulses are equal and palpable bilaterally. Extremities: No clubbing, cyanosis nor edema is noted. Neurologic: Gait and station normal. Cranial Nerves 2-12 intact. Motor strength grossly symmetrical and intact. No sensory loss. Balance normal. Skin: No rashes, ulcers, or lesions noted. Turgor is good. Skin color is good. Hair and nails are without abnormalities. Skin is dry. Psych: Normal eye contact, affect and mood appropriate, and normal interactions. Patient is alert and appropriate to context. Results 02/04/2025 reviewed w/ her today: A1c 6.1% today Discussion Notes I reviewed with the patient her chronic conditions, including COPD and coronary artery disease. Discussed the importance of managing anxiety and depression with sertraline. We reviewed the symptoms of her current sinusitis, advising potential progression risks and confirmed the current management strategy and careful monitoring. Proposed antibiotics and nystatin for thrush in her throat in detail, emphasizing usage guidelines and sequential pharmacological approach considering augmenting first and nystatin second. Explained potential triggers due to her inhaler use and advised rinsing post-use. We discussed health maintenance objectives, including timely vaccinations?tetanus given during this visit, influenza and pneumococcal reminders, colonoscopy needs, and current lab results. I advised the importance of correct device use for home oxygen and suggested communication with her store operations manager regarding concerns about the monitoring device. Emphasized smoking cessation, encouraged wellness behaviors, and reinforced instructions for better medication adherence, especially around her cardiac regimen. Patient was given time to ask questions. All questions were answered to their satisfaction. Assessment and Plan 1. COPD - Continue inhalers and home O2; FU with Pulm 2. Coronary Artery Disease with NSTEMI - Continue cardiac medications and cardiology follow-up. 3. Heart Failure - Monitor and continue valsartan therapy. 4. Sinusitis - Start Augmentin, follow with nystatin for thrush. 5. Thrush - Start nystatin post antibiotic. 6. Anxiety and Depression - Increase sertraline from 50 to 75mg QD; continue counseling as needed. 7. GERD - Continue current regimen. 8. Health Maintenance - Tetanus vaccine given; instruct on other vaccines locally. Patient Instructions - Take antibiotics as prescribed for the infection. - Use nystatin after antibiotics finish or as advised. - Rinse mouth after using inhalers. - Get flu and pneumonia vaccines at a pharmacy. - Continue monitoring and managing health conditions with current medicines. - Follow-up for any worsening symptoms or concerns. - RTO 6 mo routine check in, sooner as needed. Consent Patient was informed and verbally consented to the use of an ambient scribe for clinic note documentation during this visit. An additional 30 minutes was spent addressing the problem(s) noted at todays visit. This includes time spent before the visit reviewing the chart, time spent during the visit, and time spent after the visit on documentation reviewing laboratory results, diagnostic imaging, medications, performing a medically necessary evaluation, counseling on diagnoses, care coordination, ordering appropriate tests, ordering appropriate medications, review of tests performed by other providers, reporting test results with the patient, communication with other healthcare providers. [facility] Medical History (Updated 02/21/25 @ 14:51 by Jonna Arteaga, [facility]) COPD exacerbation High cholesterol HTN (hypertension) Hx of mammogram (~2019) Multifocal pneumonia No pertinent family history Non-ST elevation OR (NSTEMI) Urinary tract infection Surgical History (Updated 11/05/24 @ 16:55 by Aris Aburto NP) History of cardiac cath Hx of colonoscopy (~2014) Social History (Updated 02/21/25 @ 10:13 by Brenda Conde MA) Household Members: Significant Other Housing: House Are you a primary nursing care partner to a significant other at home: No Do you presently have visiting nurse or other home services: No Alcohol intake: current Alcohol intake frequency: a few times a week Patient Tobacco Use Status: Former Tobacco user e-Cigarette/Vaping Use: Never Used Second Hand Smoke Exposure: No service: No Cognitive needs: No Hearing needs: No Vision needs: Yes (wear glasses) Questionnaire Medicare Wellness Checkup What [age] 65-69 What gender do you identify with?: female During the past 4 weeks, how much have you been bothered by emotional problems such as feeling anxious, depressed, irritable, sad or downhearted, and blue?: extremely During the past 4 weeks, has your physical & emotional health limited your social activities with family, friends, neighbors, or groups?: moderately During the past 4 weeks, how much bodily pain have you generally had?: no pain During the past 4 weeks, was someone available to help you if you needed & wanted help?: yes, as much as I wanted During the past 4 weeks, what was the hardest physical activity you could do for at least 2 minutes?: moderate (Walking) Can you get to places out of walking distance without help? (For eg., can you travel alone on buses, taxis or drive your car?): Yes Can you go shopping for groceries or clothes without someone's help?: Yes Can you prepare your own meals?: Yes Can you do your housework without help?: No (Somewhat) Because of any health problems, do you need the help of another person with your personal care needs such as eating, bathing, dressing or getting around the house?: No Can you handle your own money without help?: Yes During the past 4 weeks, how would you rate your health in general?: good During the past 4 weeks how have things been going for you?: good & bad parts about equal Are you having difficulties driving your car?: no Do you always fasten your seat belt when you are in a car?: yes, usually During past 4 weeks, have you been bothered by the following: never: Falling or dizzy when standing up, Teeth or denture problems? and Problems using the telephone?, sometimes: Trouble eating well?, often: Tiredness or fatigue? and always: Sexual problems? (Needs a man) Have you fallen 2 or more times in the past year?: No Are you afraid of falling?: No Are you a smoker?: no During the past 4 weeks, how many drinks of wine, beer, or other alcoholic beverages did you have?: no alcohol at all Do you exercise for about 20 minutes 3 or more times a week?: no, I usually do not exercise this much Have you been given information to help with the following?: no: Hazards in your house that might hurt you? and no: Keeping track of your medications? How often do you have trouble taking medicines the way you have been told to take them?: I always take medicine as prescribed How confident are you that you can control & manage most of your health problems?: very confident What is your race?: White Mini Mental State Exam (MMSE) Orientation What is the (year) (season) (date) (day) (month)?: year (2024), season (Late Summer), date (02/21), day (Monday) and month (January) Where are we (state) (county) (town or city) (hospital) (floor)?: state ([place]), county ([place]), town or city ([place]), hospital/clinic (Clinic) and floor (ground) Registration Name of 3 unrelated objects clearly and slowly, then ask patient to repeat all 3 of them. (1st repeat determines score. Make sure they can repeat all three): object 1 (Blood pressure), object 2 (Hand Professor Of Music) and object 3 (chair) Attention & Calculation (CHOOSE ONE) Ask pt to begin with 100 & count backward by 7. Stop after 5 repeats. If pt cannot ask them to spell the word WORLD backward.: 93, 86, 79, 72 and 65 Spell WORLD backwards (DLROW): 5 letters Recall Ask patient to repeat the 3 items from question #3.: object 1, object 2 and object 3 Language Show patient a wristwatch & ask what it is. Repeat for pencil.: watch and pencil Ask the patient to repeat the phrase 'No ifs, ands, or buts' after you.: correct Ask the patient to 'take a piece of paper with their right hand' 'fold paper in half' 'place paper on floor': take paper in right hand, fold paper in half and place paper on floor Print the sentence 'CLOSE YOUR EYES' on a piece. If patient actually closes eyes then score.: followed written direction Give patient a blank piece of paper & ask to write a sentence. Score if it contains a noun & verb.: sentence contains subject and verb Score Score: 34 Activity of Daily Living Bathing - sponge bath, tub bath or shower: receives no assistance (gets in/out by self, if usual bathing means Dressing - getting clothes from closets & drawers, including inner/outer garments & fasteners.: gets clothes & gets completely dressed without help Toileting - going to the 'toilet room' for urine/bowel elimination & cleaning self/arranging clothes: goes to toilet room, cleans self, arranges clothes without help Transfer: moves in & out of bed and chair without help (may use support object) Continence: controls urination/bowel movements completely by self Feeding: feeds self without help Total Score: 0 Information obtained from: patient Using telephone: independent Traveling: independent Shopping: independent Preparing meals: independent Housework: needs assistance Taking medicine: independent Managing money: independent PHQ-9 Over the last 2 weeks, how often have you been bothered by any of the following problems? 1. Little interest or pleasure in doing things: several days 2. Feeling down, depressed, or hopeless: nearly every day 3. Trouble falling or staying asleep, or sleeping too much: more than half the days 4. Feeling tired or having little energy: nearly every day 5. Poor appetite or overeating: more than half the days 6. Feeling bad about yourself - or that you are a failure or have let yourself or your family down: not at all 7. Trouble concentrating on things, such as reading the newspaper or watching television: several days 8. Moving or speaking so slowly that other people could have noticed. Or the opposite - being so fidgety or restless that you have been moving around a lot more than usual: not at all 9. Thoughts that you would be better off or of hurting yourself in some way: not at all Total score: 12 Depression Screening Interpretation: Positive Depression Screening Follow-up: Existing condition and In treatment Depression Screening Done: Yes 61595 - PHQ-9 Billing: Yes Source: Developed by Drs. Adama Rizvi, Debi Dye, Deric Sorenson and colleagues, with an educational ca from [employer]. Physical Exam Vital Signs: Last Vital Signs Temp 97.7 F 02/21/25 10:26 Pulse 85 02/21/25 10:26 Resp 12 02/21/25 10:26 BP 106/58 L 02/21/25 10:26 Pulse Ox 97 02/21/25 10:26 Oxygen Delivery Method Room Air 02/21/25 10:26 BMI result Body Mass Index 26.6 Office Procedures Vision Screening Right Eye: 20/40 Left Eye: 20/20 Bilateral: 20/25 Color: Pass 84668 - Vision Screening EKG [id number], Complete Results AMB Hemoglobin A1c AMB Hemoglobin A1c 6.1 % Last Edit by Brenda Conde MA on 02/21/25 10:43 Immunizations Boostrix Tdap 2.5 Lf unit-8 mcg-5 Lf/0.5 mL intramuscular syringe Performing Provider: SALLY Holman [place] [facility] [place] [facility] Administered by: Brenda Conde MA on 02/21/25 11:51 Dose Route Admin Location Dispensed Lot Number Expiration Date UTC Sample Grinder 0.5 mL IM Left Deltoid 0.5 mL [id number] 02/21/25 56254-241-16 [employer] Total Dispensed Waste 0.5 mL 0 % VIS Given Date VIS Provided VIS Publication Date 02/21/25 Single Vaccine 21 Eligibility Eligibility Date Funding Source Not [facility] Eligible 02/21/25 Private Results Reviewed Results Reviewed: Laboratory Last Values Hgb A1c (Clinic) 6.1 % (4.0-6.0) H 02/21/25 10:30 Assessment & Plan Assessment & Plan (1) Encounter for initial annual wellness visit (AWV) in Medicare patient: Code(s): Z00.00 - Encounter for general adult medical examination without abnormal findings Plan: 02/21/25 (2) ACP (advance care planning): Code(s): Z71.89 - Other specified counseling (3) Sinusitis: Code(s): J32.9 - Chronic sinusitis, unspecified Qualifiers: Sinusitis location: pansinusitis Chronicity: acute Recurrence: non-recurrent Qualified Code(s): J01.40 - Acute pansinusitis, unspecified (4) MDD (major depressive disorder), recurrent episode: Code(s): F33.9 - Major depressive disorder, recurrent, unspecified Qualifiers: Major depression episode severity: mild Qualified Code(s): F33.0 - Major depressive disorder, recurrent, mild (5) NSTEMI (non-ST elevated myocardial infarction): Code(s): I21.4 - Non-ST elevation (NSTEMI) myocardial infarction (6) Menopause: Code(s): Z78.0 - Asymptomatic menopausal state (7) Adrenal adenoma: Onset Date: ~08/2024 Comment: [address] scan 12/2024 12 mm lipid rich adrenal adenoma on the left. No further radiologic workup is necessary. Code(s): D35.00 - Benign neoplasm of unspecified adrenal gland Qualifiers: Laterality: left Qualified Code(s): D35.02 - Benign neoplasm of left adrenal gland (8) Acute hypoxemic respiratory failure: Code(s): J96.01 - Acute respiratory failure with hypoxia (9) COPD (chronic obstructive pulmonary disease): Code(s): J44.9 - Chronic obstructive pulmonary disease, unspecified Qualifiers: COPD type: chronic bronchitis Chronic bronchitis type: simple Qualified Code(s): J41.0 - Simple chronic bronchitis (10) Personal history of tobacco use: Code(s): Z87.891 - Personal history of nicotine dependence (11) Oral thrush: Code(s): B37.0 - Candidal stomatitis (12) Need for Tdap vaccination: Code(s): Z23 - Encounter for immunization Plan . Orders: Orders AMB Hemoglobin A1c Today Z13.9 - Encounter for screening, unspecified AMB Vision Screening Today Z01.00 - Encounter for examination of eyes and vision without abnormal findings TDaP Immunization Today Z23 - Encounter for immunization Medications: New nystatin swish and swallow 5 mL PO BID 300 mL 0RF amoxicillin-pot clavulanate 875-125 mg 1 tab PO BID 14 tabs 0RF 7 days Changed From sertraline 50 mg PO DAILY 90 tabs 1RF To sertraline 75 mg (1.5 x 50 mg) PO DAILY 135 tabs 1RF 90 days Refilled valsartan 20 mg (1/2 x 40 mg) PO BID 90 tabs 2RF Discontinued polymyxin B sulf-trimethoprim 10,000 unit- 1 mg/mL while awake Discontinued Reason: Patient Completed Course 1 drp ophthalmic (eye) QID 5 days 10 mL 0RF Patient Instructions: Health screenings for women You should visit your health care provider from time to time, even if you are healthy. The purpose of these visits is to: Screen for medical issues Assess your risk for future medical problems Encourage a healthy lifestyle Update vaccinations and other preventive care services Help you get to know your provider in case of an illness Information Even if you feel fine, you should still see your provider for regular checkups. These visits can help you avoid problems in the future. For example, the only way to find out if you have high blood pressure is to have it checked regularly. High blood sugar and high cholesterol levels also may not have any symptoms in the early stages. A simple blood test can check for these conditions. There are specific times when you should see your provider or receive specific health screenings. The [place] Preventive Services Task Force publishes a list of recommended screenings. Below are screening guidelines for women ages 18 to 39. BLOOD PRESSURE SCREENING Your blood pressure should be checked at least once every 3 to 5 years if: Your blood pressure is in the normal range (top number less than 120 mm Hg and bottom number less than 80 mm Hg) You don't have risk factors for high blood pressure Ask your provider if you need your blood pressure checked more often if: The top number is 120 to 129 mm Hg or the bottom number is 70 to 79 mm Hg You have diabetes, heart disease, kidney problems, are overweight, or have certain other health conditions You have a first-degree relative with high blood pressure You are Black You had high blood pressure during a If the top number is 130 mm Hg or greater or the bottom number is 80 mm Hg or greater, this is considered stage 1 hypertension. Schedule an appointment with your provider to learn how you can reduce your blood pressure. Watch for blood pressure screenings in your area. Ask your provider if you can stop in to have your blood pressure checked. BREAST CANCER SCREENING Experts do not agree about the benefits of breast self-exams in finding breast cancer or saving lives. Talk to your provider about what is best for you. A screening mammogram is not recommended for most women under age 40. Your provider may discuss and recommend mammograms, MRI scans, or ultrasounds if you have an increased risk for breast cancer, such as: A mother or sister who had breast cancer at a young age (most often starting screening earlier than the age the close relative was diagnosed) You carry a high-risk genetic marker CERVICAL CANCER SCREENING Cervical cancer screening should start at age 21 years unless your provider advises otherwise. After the first test: Women ages 21 through 29 should have a Pap test every 3 years. Exoprts do not agree on whether HPV testing is recommended for this age group. Women ages 30 through 65 should be screened with either a Pap test every 3 years or the HPV test every 5 years or both tests every 5 years (called cotesting ). Women who have been treated for precancer (cervical dysplasia) should continue to have Pap tests for 20 years after treatment or until age 65, whichever is longer. If you have had your uterus and cervix removed (total hysterectomy), and you have not been diagnosed with cervical cancer or precancer (high grade cervical neoplasia), you do not need cervical cancer screening. CHOLESTEROL SCREENING Cholesterol screening should begin at: Age 45 for women with no known risk factors for coronary heart disease Age 20 for women with known risk factors for coronary heart disease Repeat cholesterol screening should take place: Every 5 years for women with normal cholesterol levels More often if changes occur in lifestyle (including weight gain and diet) More often if you have diabetes, heart disease, kidney problems, or certain other conditions DIABETES SCREENING You should be screened for diabetes starting at age 35 and then repeated every 3 years if you have no risk factors for diabetes. Screening may need to start earlier and be repeated more often if you have other risk factors for diabetes, such as: You have a first degree relative with diabetes. You are overweight or have obesity. You have high blood pressure, prediabetes, or a history of heart disease. Screening for diabetes should be done if you are planning to become and you are overweight and have other risk factors such as high blood pressure. DENTAL EXAM Go to the dentist once or twice every year for an exam and cleaning. Your dentist will evaluate if you need more frequent visits. EYE EXAM Have an eye exam every 5 to 10 years before age 40. If you have vision problems, have an eye exam every 2 years or more often if recommended by your provider. You should have an eye exam that includes an examination of your retina (back of your eye) at least every year if you have diabetes. IMMUNIZATIONS Commonly needed vaccines include: Flu shot: get one every year. COVID-19 vaccine: ask your provider what is best for you. Tetanus-diphtheria and acellular pertussis (Tdap) vaccine: have one at or after age 19 as one of your tetanus-diphtheria vaccines if you did not receive it as an adolescent. Tetanus-diphtheria: have a booster (or Tdap) every 10 years. Varicella vaccine: receive 2 doses if you never had chickenpox or the varicella vaccine. Hepatitis B vaccine: receive 2, 3, or 4 doses, depending on your exact circumstances. Measles, mumps, and rubella (MMR) vaccine: receive 1 to 2 doses if you are not already immune to MMR. Your provider can tell you if you are immune. Ask your provider about the human papillomavirus (HPV) vaccine if: You have not received the HPV vaccine in the past You have not completed the full vaccine series (you should catch up on this shot) Ask your provider if you should receive other immunizations if you have certain health problems that increase your risk for some diseases such as pneumonia. INFECTIOUS DISEASE SCREENING Women who are sexually active should be screened for chlamydia and gonorrhea up until age 25. Women 25 years and older should be screened for chlamydia and gonorrhea if at high risk. Screening for hepatitis C: All adults ages 18 to 79 should get a one-time test for hepatitis C. people should be screened at every . Screening for human immunodeficiency virus (HIV): All people ages 15 to 65 should get a one-time test for HIV. Depending on your lifestyle and medical history, you may also need to be screened for infections such as syphilis and HIV, as well as other infections. PHYSICAL EXAM All adults should visit their provider from time to time, even if they are healthy. The purpose of these visits is to: Screen for disease Assess your risk of future medical problems Encourage a healthy lifestyle Update your vaccinations and other preventive care services Maintain a relationship with a provider in case of an illness Your height, weight, and BMI should be checked at every exam. During your exam, your provider may ask you about: Depression and anxiety Diet and exercise Alcohol and tobacco use Safety issues, such as using seat belts, smoke detectors, and intimate partner violence Your medicines and risk for interactions SKIN SELF-EXAM Your provider may check your skin for signs of skin cancer, especially if you're at high risk, such as if you: Have had skin cancer before Have close relatives with skin cancer Have a weakened immune system OTHER SCREENING Talk with your provider about colon cancer screening if you have a strong family history of colon cancer or polyps, or if you have had inflammatory bowel disease or polyps yourself. Routine bone density screening of women under 40 is not recommended. Quality Reporting (2019) Adult ([facility] 138/08/17/68) Smoking risk assessment performed?: Yes Patient Tobacco Use Status: Former Tobacco user Depression screening performed: Yes Systolic BP not done?: No Diastolic BP not done?: No BMI screening not done: No Sexual Activity Screening ([facility] 153) Sexually active?: No Immunizations ([facility] 147, 117) Annual Influenza Vaccine: Yes Measles Antibody Test: No Mumps Antibody Test: No Rubella Antibody Test: No Varicella Antibody Test: No Anti Hepatitis A IgG Antigen test: No Anti Hepatitis B Virus Surface Ab test: No Fall Risk Screening ([facility] 139) Last assessed Fall Risk: 02/21/25 Fall risk assessment: No Falls in past year Dementia Assessment ([facility] 149) Cognitive assessment recorded: Yes Assessment of cognition with standardized tool: Yes Depression/Bipolar (159/160/161/177) PHQ-9: Total score: 12 Ophthalmol:Cataracts Visual Acuity (133) Visual acuity exam performed: Yes (see results ) Coding Level of Care Code Medicare First (G0438) Est Pt Level 4 (55909) Diagnoses Encounter for initial annual wellness visit (AWV) in Medicare patient Z00.00 ACP (advance care planning) Z71.89 Acute non-recurrent pansinusitis J01.40 Sinusitis location: pansinusitis Chronicity: acute Recurrence: non-recurrent Mild episode of recurrent major depressive disorder F33.0 Major depression episode severity: mild NSTEMI (non-ST elevated myocardial infarction) I21.4 Menopause Z78.0 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 Laterality: left Acute hypoxemic respiratory failure J96.01 Simple chronic bronchitis J41.0 COPD type: chronic bronchitis Chronic bronchitis type: simple Personal history of tobacco use Z87.891 Oral thrush B37.0 Need for Tdap vaccination Z23 CPT Codes Advance Care Planning - Time spent: 1-15 minutes, not on file ([id number]) Vision Screening - Vision Screenin - Vision Screening ([id number]) EKG - CPT: 88525-Kxeeookarvtbtwenc, Complete ([id number]) Additional Codes PHQ-9 - 33206 - PHQ-9 Billing: Yes ([id number]) Advance Care Planning Advance Care Planning discussion: Exists, not on file Date of discussion: 02/21/25 Forms completed: Health Care Proxy, MOLST and Living will Time spent: 1-15 minutes, not on file Actual minutes spent: 5
[2025-02-21 10:26] VITALS: BP 106/58; PULSE 85; RESP 12; TEMP 36.5; O2SAT 97; BMI 26.6
--- OUTSIDE RECORDS SUMMARY | 2025-02-21 10:45 | XMS_ITS | Encounter Summary ---
Author Organization [facility] Address [address] [place] [address] Care Team Providers Care Disability Rater Name Role Phone Oren Roberson MD Primary Care Provider [phone] Encounter Details Date Type Department Care Team Description 02/06/2021 Refill Pulmonology - [place] [address] [facility] [address] [place] [address] Larry Myers MD [address] [place] [address] Social History Tobacco Use Types Packs/Day Years Used Date Smoking Tobacco: Former Cigarettes 1 40 Q uit: 06/05/2015 Smokeless Tobacco: Never Alcohol Use Standard Drinks/Week Comments Yes 12 (1 standard drink = 0.6 oz pu re alcohol) weekly Sex Assigned at Date Recorded Not on file documented as of this encounter Plan of Treatment Not on file documented as of this encounter Visit Diagnoses Diagnosis Chronic obstructive pulmonary disease, unspecified COPD type (HCC) documented in this encounter Care Teams Disability Rater Relationship Specialty Start Date End Date Oren Roberson MD PCP - General Internal Medicine 06/04/18 documented as of this encounter
--- OUTSIDE RECORDS SUMMARY | 2025-02-21 10:45 | XMS_ITS | Encounter Summary ---
Author Organization [facility] Address [address] [place] [address] Care Team Providers Care Scholastic Aptitude Test Grader Name Role Phone Oren Roberson MD Primary Care Provider [phone] Encounter Details Date Type Department Care Team Description 10/20/2022 Lockstitch Machine Operator Report Medical Records [address] [place] [address] Center, [facility] [address] [place] [address] Social History Tobacco Use Types Packs/Day Years [...] Diagnoses Not on filedocumented in this encounter Care Teams Scholastic Aptitude Test Grader Relationship Specialty Start Date End Date Oren Roberson MD PCP - General Internal Medicine 06/04/18 documented as of this encounter
--- OUTSIDE RECORDS SUMMARY | 2025-02-21 10:45 | XMS_ITS | Clinical Summary ---
Author Organization [facility] Address [address] [facility] [address] [place] [address] Care Team Providers Care Nursing Informatics Analyst Name Role Phone Unavailable Primary Care Provider Unavailabl e Medications Umeclidinium [place] (Incruse Ellipta) 62.5 MCG/ACT aerosol powderIndicatio ns:COPD [...] Type Department Care Team Description 01/13/2025 Telephone [facility] [address] [place] [phone] Samina Fisher MD Chart Prep 01/07/2025 Patient Outreach [facility] PED[facility] [address] [place], [place] [id number] Samina Fisher MD Pre-visit Planning ([facility] unable to reach [facility] ) 12/26/2024 Orders Only [facility] [address] [place] [address] Toma Mcnally ANP COPD with [...] patient's age to complete this topic Insurance [facility] FULL BCBS [place] REPLACEMENT PPO
--- OUTSIDE RECORDS SUMMARY | 2025-02-21 10:45 | XMS_ITS | Encounter Summary ---
Author Organization [facility] Address [address] [place] [address] Care Team Providers Care Installation Engineer Name Role Phone Oren Roberson MD Primary Care Provider [phone] Reason for Visit * Reason Onset Date Comments Cough 08/21/2020 fatigue/malaise 08/21/2020 Wheezing 08/21/2020 Fever 08/21/2020 Encounter Details Date Type Department Care Team Description 08/21/2020 Telephone Internal Medicine - [address], [address] [place] [address] Oren Roberson MD [address] [place] [address] Cough; fatigue/malaise; Wheezing; Fever Social History Tobacco Use Types Packs/Day Years Used Date Smoking Tobacco: Former Cigarettes 1 40 Q uit: 06/05/2015 Smokeless Tobacco: Never Alcohol Use Standard Drinks/Week Comments Yes 12 (1 standard drink = 0.6 oz pu re alcohol) weekly Sex Assigned at Date Recorded Not on file documented as of this encounter Miscellaneous Notes * Telephone Encounter - Kelsey Vazquez R.N. - 08/26/2020 11:54 AM EST Scheduled f/u appt for 08/27 at 2:45 via telehealth with pcp DIANNAVE COVID Needs refill on nebulizer solution * Telephone Encounter - Oren Roberson MD - 08/26/2020 11:48 AM EST Book a visit with the provider soon * Telephone Encounter - Kelsey Vazquez R.N. - 08/26/2020 11:03 AM EST Started feeling bad on 08/19, went to [facility] 08/21 and was given rapid test and was positive for COVID. Doing updrafts and meds and feeling worse so she went back to [facility] this morning. She had the same provider listen to her lungs and is putting on prednisone, could here something that wasn't there last. She needs refill on nebulizer solution last filled 12/2019 * Telephone Encounter - Marie Garza R.N. - 08/21/2020 11:44 AM EST Call was returned to caller. Voice message left asking her to return my call. * Telephone Encounter - Marisabel Jose F - 08/21/2020 9:04 AM EST Symptoms patient is presenting: body aches, fatigue, cough, fever and wheezing. Patient has asthma and emphysema For ALL patients calling to schedule any appointment (routine, sick visit, follow up, consult, etc.) in the outpatient setting please ask the following questions: ?? Do you have fever of higher than 101, sore throat with difficulty swallowing or severe shortnessof breath? YES If YES to any of these above symptoms, send a message to triage and do not book. Red dot. If no, an audio or video visit should be booked. ?? Have you had close contact with someone with Coronavirus in the last 14 days? NO ?? Have you traveled abroad? NO ?? Have you traveled recently to another state outside of [place], [place], [place], [place], [place], [place], [place]? NO o If yes, did you quarantine for 14 days or have a negative covid test? NO If yes to any of the above, patient is not to be scheduled in office until after 14 day quarantine or negative covid test. If pain or injury related was it due to an accident at work or from a motor vehicle accident? NO If yes, gather 3rd constitution party insurance information Date of accident/Injury: n/a How long has patient had these symptoms?: 48 hours PCP: Da Lott Payor: [employer] FFS / Plan: [employer] PLAN / Product Type: MEDICAID RISK documented in this encounter Plan of Treatment Not on file documented as of this encounter Visit Diagnoses Diagnosis Chronic obstructive pulmonary disease, unspecified COPD type (HCC) documented in this encounter Care Teams Installation Engineer Relationship Specialty Start Date End Date Oren Roberson MD PCP - General Internal Medicine 06/04/18 documented as of this encounter
--- OUTSIDE RECORDS SUMMARY | 2025-02-21 10:45 | XMS_ITS | Encounter Summary ---
Author Organization [facility] Address [address] [place] [address] Care Team Providers Care Central Sterile Technician Name Role Phone Oren Roberson MD Primary Care Provider [phone] Encounter Details Date Type Department Care Team Description 02/06/2021 Refill Internal Medicine - [address], [address] [place] [address] Oren Roberson MD [address] [place] [address] Social History Tobacco Use Types Packs/Day Years Used Date Smoking Tobacco: Former Cigarettes 1 40 Q uit: 06/05/2015 Smokeless Tobacco: Never Alcohol Use Standard Drinks/Week Comments Yes 12 (1 standard drink = 0.6 oz pu re alcohol) weekly Sex Assigned at Date Recorded Not on file documented as of this encounter Miscellaneous Notes * Telephone Encounter - Minerva VÁZQUEZ - 02/08/2021 8:14 AM EDTFrom: Earlene Causey To: Office of Wale Roberson Sent: 02/06/2021 8:40 PM EDT Subject: Medication Renewal Request Refills have been requested for the following medications: Other - Incruse maren 62.5 mcg Preferred pharmacy: [facility] [address] [place] [address] Medication renewals requested in this message routed separately: Mometasone Furo-Formoterol Fum (DULERA ) 200-5 MCG/ACT Aerosol [GRAYSON ROA MD, MD] hydrochlorothiazide (HYDRODIURIL) 25 MG tablet [Da Lott MD] documented in this encounter Plan of Treatment Not on file documented as of this encounter Visit Diagnoses Not on filedocumented in this encounter Care Teams Central Sterile Technician Relationship Specialty Start Date End Date Oren Roberson MD PCP - General Internal Medicine 06/04/18 documented as of this encounter
--- OUTSIDE RECORDS SUMMARY | 2025-02-21 10:45 | XMS_ITS | Encounter Summary ---
Author Organization [facility] Address [address] [place] [address] Care Team Providers Care Pest Control Supervisor Name Role Phone Oren Roberson MD Primary Care Provider [phone] Reason for Visit * Reason Onset Date Comments refill request 02/13/2019 Encounter Details Date Type Department Care Team Description 02/13/2019 Telephone Internal Medicine - [address], [address] [place] [address] Oren Roberson MD [address] [place] [address] refill request Social History Tobacco Use Types Packs/Day Years Used Date Smoking Tobacco: Former Cigarettes 1 40 Smokeless Tobacco: Never Alcohol Use Standard Drinks/Week Comments Yes 12 (1 standard drink = 0.6 oz pu re alcohol) weekly Sex Assigned at Date Recorded Not on file documented as of this encounter Miscellaneous Notes * Telephone Encounter - Marianne Valadez M.A. - 02/15/2019 8:46 AM EDT No results found for: NA, K, CO2, CL, BUN, CREAT, GLU, CA, GFR BP Readings from Last 5 Encounters: 02/04/19 (!) 142/80 06/04/18 140/84 12/04/17 116/70 * Telephone Encounter - Mayuri Hanson - 02/13/2019 11:29 AM EDT Patient would like script to be: E-PRESCRIBED/FAXED TO PHARMACY WHEN WAS THE PATIENT'S LAST APPOINTMENT IN ADULT MEDICINE? 02/04/19 WHEN WAS THE LAST TIME THE PATIENT SAW THEIR PCP? Same as above Does patient have an upcoming appointment? Yes 08/08/2019 (THE MEDICATION REQUESTED IS ON THE MED LIST ABOVE) All of the medications requested were on the CURRENT MEDS list Did you check the Pharmacy information above?: YES Patient wants: 90 -day supply Is this a mail order prescription request ? NO If the refill is from a FAXED refill request what is the RX # listed on the fax? N/A Patients current insurance carrier is: Payor: [employer] FFS / Plan: [employer] / Product Type: MEDICAID RISK documented in this encounter Plan of Treatment Not on file documented as of this encounter Visit Diagnoses Not on filedocumented in this encounter Care Teams Pest Control Supervisor Relationship Specialty Start Date End Date Oren Roberson MD PCP - General Internal Medicine 06/04/18 documented as of this encounter
--- OUTSIDE RECORDS SUMMARY | 2025-02-21 10:45 | XMS_ITS | Encounter Summary ---
Author Organization [facility] Address [address] [place] [address] Care Team Providers Care Swaging Machine Operator Name Role Phone Oren Roberson MD Primary Care Provider [phone] Encounter Details Date Type Department Care Team Description 10/07/2021 Dance Costume Designer Report Medical Records [address] [place] [address] Center, [facility] [address] [place] [address] Social History Tobacco Use Types Packs/Day Years [...] on filedocumented in this encounter Care Teams Swaging Machine Operator Relationship Specialty Start Date End Date Oren Roberson MD PCP - General Internal Medicine 06/04/18 documented as of this encounter
--- OUTSIDE RECORDS SUMMARY | 2025-02-21 10:45 | XMS_ITS | Encounter Summary ---
Author Organization [facility] Address [address] [place] [address] Care Team Providers Care Licensing And Registration Director Name Role Phone Oren Roberson MD Primary Care Provider [phone] Encounter Details Date Type Department Care Team Description 08/28/2020 Refill Internal Medicine - [address], [address] [place] [address] Oren Roberson MD [address] [place] [address] Social History Tobacco Use Types Packs/Day Years Used Date Smoking Tobacco: Former Cigarettes 1 40 Q uit: 06/05/2015 Smokeless Tobacco: Never Alcohol Use Standard Drinks/Week Comments Yes 12 (1 standard drink = 0.6 oz pu re alcohol) weekly Sex Assigned at Date Recorded Not on file documented as of this encounter Miscellaneous Notes * Telephone Encounter - Marianne Valadez M.A. - 08/28/2020 2:03 PM EST BP Readings from Last 3 Encounters: 02/06/20 (!) 140/80 09/16/19 134/72 08/08/19 (!) 142/82 Lab Results Component Value Date NA 135 08/15/2019 K 4.2 08/15/2019 CO2 30 08/15/2019 CL 101 08/15/2019 BUN 12 08/15/2019 CREAT 0.68 08/15/2019 GLU 109 08/15/2019 CA 9.5 08/15/2019 GFR > 60 08/15/2019 documented in this encounter Plan of Treatment Not on file documented as of this encounter Visit Diagnoses Not on filedocumented in this encounter Care Teams Licensing And Registration Director Relationship Specialty Start Date End Date Oren Roberson MD PCP - General Internal Medicine 06/04/18 documented as of this encounter
--- OUTSIDE RECORDS SUMMARY | 2025-02-21 10:45 | XMS_ITS | Encounter Summary ---
Author Organization [facility] Address [address] [place] [address] Care Team Providers Care Observer Gravity Prospecting Name Role Phone Oren Roberson MD Primary Care Provider [phone] Reason for Visit * Reason Comments E-prescribe Rx Request Encounter Details Date Type Department Care Team Description 03/20/2020 Refill Internal Medicine - [address], [address] [place] [address] Oren Roberson MD [address] [place] [address] E-prescribe Rx Request Social History Tobacco Use Types Packs/Day Years Used Date Smoking Tobacco: Former Cigarettes 1 40 Q uit: 06/05/2015 Smokeless Tobacco: Never Alcohol Use Standard Drinks/Week Comments Yes 12 (1 standard drink = 0.6 oz pu re alcohol) weekly Sex Assigned at Date Recorded Not on file COVID-19 Exposure Response Date Recorded In the last month, have you been in contact with someone who was confirmed or suspected to have Coronavirus / COVID-19? Unable to assess 03/19/2020 7:34 AM EDT documented as of this encounter Miscellaneous Notes * Telephone Encounter - Marianne Valadez M.A. - 03/20/2020 2:12 PM EDT BP Readings from Last 3 Encounters: 02/06/20 (!) 140/80 09/16/19 134/72 08/08/19 (!) 142/82 Lab Results Component Value Date NA 135 08/15/2019 K 4.2 08/15/2019 CO2 30 08/15/2019 CL 101 08/15/2019 BUN 12 08/15/2019 CREAT 0.68 08/15/2019 GLU 109 08/15/2019 CA 9.5 08/15/2019 GFR > 60 08/15/2019 * Telephone Encounter - Serenity Barksdale - 03/20/2020 9:02 AM EDT [facility] - 02.06.2020 NOV - [facility] to call back and schedule their 6 month follow up around 08/08/2019. Refills - 90 Tabs - Refill amount not specified in the prescription refill request. documented in this encounter Plan of Treatment Not on file documented as of this encounter Visit Diagnoses Not on filedocumented in this encounter Care Teams Observer Gravity Prospecting Relationship Specialty Start Date End Date Oren Roberson MD PCP - General Internal Medicine 06/04/18 documented as of this encounter
--- OUTSIDE RECORDS SUMMARY | 2025-02-21 10:45 | XMS_ITS | Encounter Summary ---
Author Organization [facility] Address [address] [place] [address] Care Team Providers Care Agricultural Real Estate Agent Name Role Phone Oren Roberson MD Primary Care Provider [phone] Reason for Visit * Reason Comments E-prescribe Rx Request Encounter Details Date Type Department Care Team Description 01/11/2020 Refill Pulmonology - [place] [address] [facility] [address] [place] [address] Larry Myers MD [address] [place] [address] E-prescribe Rx Request Social History Tobacco Use Types Packs/Day Years Used Date Smoking Tobacco: Former Cigarettes 1 40 Q uit: 06/05/2015 Smokeless Tobacco: Never Alcohol Use Standard Drinks/Week Comments Yes 12 (1 standard drink = 0.6 oz pu re alcohol) weekly Sex Assigned at Date Recorded Not on file documented as of this encounter Miscellaneous Notes * Telephone Encounter - Miranda Brito - 01/13/2020 2:01 PM EDT Patient would like script to be: E-PRESCRIBED/FAXED TO PHARMACY WHEN WAS THE PATIENT'S LAST APPOINTMENT WITH THE PRESCRIBING PROVIDER? 09/16/19 Does patient have an upcoming appointment? Yes 03/19/20 (THE MEDICATION REQUESTED IS ON THE MED LIST ABOVE) All of the medications requested were on the CURRENT MEDS list Did you check the Pharmacy information above?: YES Patient wants: 30 -day supply Is this a mail order prescription request ? NO Patients current insurance carrier is: Payor: [employer] FFS / Plan: [employer] PLAN / Product Type: MEDICAID RISK documented in this encounter Plan of Treatment Not on file documented as of this encounter Visit Diagnoses Diagnosis Chronic obstructive pulmonary disease, unspecified COPD type (HCC) documented in this encounter Care Teams Agricultural Real Estate Agent Relationship Specialty Start Date End Date Oren Roberson MD PCP - General Internal Medicine 06/04/18 documented as of this encounter
--- OUTSIDE RECORDS SUMMARY | 2025-02-21 10:45 | XMS_ITS | Encounter Summary ---
Author Organization [facility] Address [address] [place] [address] Care Team Providers Care Paper Cone Machine Operator Name Role Phone Oren Roberson MD Primary Care Provider [phone] Reason for Visit * Reason Comments E-prescribe Rx Request Encounter Details Date Type Department Care Team Description 02/12/2021 Refill Internal Medicine - [address], [address] [place] [address] Oren Roberson MD [address] [place] [address] E-prescribe Rx Request Social History Tobacco Use Types Packs/Day Years Used Date Smoking Tobacco: Former Cigarettes 1 40 Q uit: 06/05/2015 Smokeless Tobacco: Never Alcohol Use Standard Drinks/Week Comments Yes 12 (1 standard drink = 0.6 oz pu re alcohol) weekly Sex Assigned at Date Recorded Not on file documented as of this encounter Miscellaneous Notes * Telephone Encounter - Adia Coyle - 02/16/2021 10:42 AM EDT [place] 08/27/20 documented in this encounter Plan of Treatment Not on file documented as of this encounter Visit Diagnoses Not on filedocumented in this encounter Care Teams Paper Cone Machine Operator Relationship Specialty Start Date End Date Oren Roberson MD PCP - General Internal Medicine 06/04/18 documented as of this encounter
--- OUTSIDE RECORDS SUMMARY | 2025-02-21 10:45 | XMS_ITS | Encounter Summary ---
Author Organization [facility] Address [address] [place] [address] Care Team Providers Care Legal Secretary Receptionist Name Role Phone Oren Roberson MD Primary Care Provider [phone] Reason for Visit * Reason Onset Date Comments Faxed Refill 08/06/2018 Encounter Details Date Type Department Care Team Description 08/06/2018 Refill Pulmonology - [address] [place] [address] Tru Tang MD Faxed Refill Social History Tobacco Use Types Packs/Day Years Used Date Smoking Tobacco: Former Cigarettes 1 40 Smokeless Tobacco: Never Alcohol Use Standard Drinks/Week Comments Yes 12 (1 standard drink = 0.6 oz pu re alcohol) weekly Sex Assigned at Date Recorded Not on file documented as of this encounter Miscellaneous Notes * Telephone Encounter - Ruby Persaud - 08/06/2018 4:12 PM EST Patient would like script to be: E-PRESCRIBED/FAXED TO PHARMACY WHEN WAS THE PATIENT'S LAST APPOINTMENT WITH THE PRESCRIBING PROVIDER? 06/04/18 Does patient have an upcoming appointment? No future appointment is scheduled at this time (THE MEDICATION REQUESTED IS ON THE MED LIST ABOVE) All of the medications requested were on the CURRENT MEDS list Did you check the Pharmacy information above?: YES Patient wants: 90 -day supply Is this a mail order prescription request ? NO Patients current insurance carrier is: Payor: [employer] FFS / Plan: VLADIMIR LARKIN / Product Type: MEDICAID RISK documented in this encounter Plan of Treatment Not on file documented as of this encounter Visit Diagnoses Diagnosis Chronic obstructive pulmonary disease, unspecified COPD type (HCC) documented in this encounter Care Teams Legal Secretary Receptionist Relationship Specialty Start Date End Date Oren Roberson MD PCP - General Internal Medicine 06/04/18 documented as of this encounter
--- OUTSIDE RECORDS SUMMARY | 2025-02-21 10:45 | XMS_ITS | Encounter Summary ---
Author Organization [facility] Address [address] [place] [address] Care Team Providers Care Digital Advertising Analyst Name Role Phone Oren Roberson MD Primary Care Provider [phone] Encounter Details Date Type Department Care Team Description 03/16/2020 Refill Internal Medicine - [address], [address] [place] [address] Oren Roberson MD [address] [place] [address] Social History Tobacco Use Types Packs/Day Years [...] Telephone Encounter - Marianne Valadez M.A. - 03/16/2020 1:55 PM EDT BP Readings from Last 3 [...] on filedocumented in this encounter Care Teams Digital Advertising Analyst Relationship Specialty Start Date End Date Oren Roberson MD PCP - General Internal Medicine 06/04/18 documented as of this encounter
--- OUTSIDE RECORDS SUMMARY | 2025-02-21 10:45 | XMS_ITS | Encounter Summary ---
Author Organization [facility] Address [address] [place] [address] Care Team Providers Care Private Sector Executive Name Role Phone Oren Roberson MD Primary Care Provider [phone] Reason for Visit * Reason Onset Date Comments refill request 03/03/2020 Encounter Details Date Type Department Care Team Description 03/03/2020 Refill Pulmonology - [place] [address] [place] [address] Larry Myers MD [address] [place] [id number] refill request Social History Tobacco Use Types Packs/Day Years Used Date Smoking Tobacco: Former Cigarettes 1 40 Q uit: 06/05/2015 Smokeless Tobacco: Never Alcohol Use Standard Drinks/Week Comments Yes 12 (1 standard drink = 0.6 oz pu re alcohol) weekly Sex Assigned at Date Recorded Not on file documented as of this encounter Miscellaneous Notes * Telephone Encounter - Mendy Todd - 03/03/2020 11:54 AM EDT TITA 03/18/2019 NOV 03/19/2020 30 day supply. documented in this encounter Plan of Treatment Not on file documented as of this encounter Visit Diagnoses Diagnosis Chronic obstructive pulmonary disease, unspecified COPD type (HCC) documented in this encounter Care Teams Private Sector Executive Relationship Specialty Start Date End Date Oren Roberson MD PCP - General Internal Medicine 06/04/18 documented as of this encounter
--- OUTSIDE RECORDS SUMMARY | 2025-02-21 10:45 | XMS_ITS | Encounter Summary ---
Author Organization [facility] Address [address] [place] [address] Care Team Providers Care Records Management Assistant Name Role Phone Oren Roberson MD Primary Care Provider [phone] Encounter Details Date Type Department Care Team Description 10/07/2021 Brick Baker Report Medical Records [address] [place] [address] Abstract, Provider Social History Tobacco Use Types Packs/Day Years [...] Procedure Name Priority Date/Time Associated Diagnosis Comments OUTSIDE LDCT LUNG SCAN Routine 10/07/2021 documented in this encounter Results * OUTSIDE LDCT LUNG SCAN (10/07/2021) Provider Abstract RADIOLOGY documented in this encounter Visit Diagnoses Not on filedocumented in this encounter Care Teams Records Management Assistant Relationship Specialty Start Date End Date Oren Roberson MD PCP - General Internal Medicine 06/04/18 documented as of this encounter
--- OUTSIDE RECORDS SUMMARY | 2025-02-21 10:45 | XMS_ITS | Clinical Summary ---
Author Organization [facility] Address [address] [place] [address] Care Team Providers Care Electrician Ship Name Role Phone Oren Roberson MD Primary Care Provider [phone] Allergies Active Allergy Reactions Severity Noted Date Comments Codeine 08/10/2016 Nitrofurantoin Monohyd Macro OTHER 018 Abd pain Medications Medication Sig Dispensed Refills Start Date End Date Status Mometasone Furo-Formoterol Fum (DULERA) 200-5 MCG/ACT AerosolIndications: Chronic obstructive pulmonary disease, unspecified COPD type (HCC),Multiple pulmonary nodules,History of tobacco abuse Inhale 200 mcg into the lungs every 12 hours for 30 days. This medication has inhaler steroid: Rinse mouth with water and expectorate after each dose to prevent oral/esophageal candidiasis or fungal infection. 1 Inhaler 11 12/04/2017 Active Ipratropium-Albuter ol (DUONEB) 0.5-2.5 (3) MG/3ML SolutionIndications :Chronic obstructive pulmonary disease, unspecified COPD type (HCC),Multiple pulmonary nodules,History of tobacco abuse Inhale 3 mL into the lungs 4 times daily as needed for Other (sob and wheezing). COPD J44.9 120 Vial 6 12/04/2017 Active Mometasone Furo-Formoterol Fum (DULERA) 200-5 MCG/ACT Aerosol Inhale 2 Puffs into the lungs every 12 hours for 30 days. This medication has inhaler steroid: Rinse mouth with water and expectorate after each dose to prevent oral/esophageal candidiasis or fungal infection. 1 Inhaler 0 12/08/2017 Active ALBUTEROL SULFATE 108 (90 Base) MCG/ACT Aero SolnIndications:Chr onic obstructive pulmonary disease, unspecified COPD type (HCC) Inhale 2 Puffs into the lungs every 4 hours as needed for Shortness of Breath. 3 Inhaler 3 03/03/2020 Active tiotropium (SPIRIVA HANDIHALER) 18 MCG inhalation capsule Inhale 1 Cap into the lungs daily for 90 days. Inhale the contents of one capsule through the Spiriva device every AM 30 Cap 2 04/09/2020 Active albuterol (PROVENTIL) (2.5 MG/3ML) 0.083% nebulizer solutionIndications :Chronic obstructive pulmonary disease, unspecified COPD type (HCC) Take 1 Vial by nebulization every 4 hours as needed for Wheezing. 150 mL 3 08/26/2020 Active aspirin 81 MG EC tablet Take 1 Tab by mouth daily for 30 days. 30 Tab 2 08/27/2020 Active Mometasone Furo-Formoterol Fum (Dulera) 200-5 MCG/ACT AerosolIndications: Chronic obstructive pulmonary disease, unspecified COPD type (HCC) Inhale 2 Puffs into the lungs 2 times daily for 30 days. 1 g 3 02/08/2021 Active hydrochlorothiazide (HYDRODIURIL) 25 MG tablet Take 1 tablet by mouth once daily 90 tablet 2 02/16/2021 Active Incruse Ellipta 62.5 MCG/INH AEROSOL POWDER,BREATH ACTIVATED Inhale 1 Puff into the lungs daily. 1 Each 0 03/26/2021 Active Active Problems Problem Noted Date Chronic obstructive pulmonary disease Hypertension 03/06/2017 Multiple pulmonary nodules 03/06/2017 Hyperlipidemia 03/06/2017 Immunizations Name Administration Dates Next Due Influenza (6-35 months) 04/23/2018 Social History Tobacco Use Types Packs/Day Years Used Date Smoking Tobacco: Former Cigarettes 1 40 Q uit: 06/05/2015 Smokeless Tobacco: Never Alcohol Use Standard Drinks/Week Comments Yes 12 (1 standard drink = 0.6 oz pu re alcohol) weekly Sex Assigned at Date Recorded Not on file Last Filed Vital Signs Vital Sign Reading Time Taken Comments Blood Pressure 140/80 02/06/2020 8:48 AM EDT Pulse 82 02/06/2020 8:48 AM EDT Temperature 36.4 C (97.6 F) 02/06/2020 8:48 AM EDT Respiratory Rate 17 09/16/2019 9:28 AM EDT Oxygen Saturation 98% 09/16/2019 9:28 AM EDT Inhaled Oxygen Concentration - - Weight 66.2 kg (146 lb) 02/06/2020 8:48 AM EDT Height 162.6 cm (5' 4 ) 09/16/2019 9:28 AM EDT Body Mass Index 25.06 09/16/2019 9:28 AM EDT Plan of Treatment Health Maintenance Due Date Last Done Comments Covid-19 Vaccine (#1) 04/06/1961 HEPATITIS C SCREENING 1976 DTAP/TDAP/TD (1 - Tdap) 1977 MAMMOGRAM 1998 COLON CANCER SCREENING 2008 SHINGLES VACCINE (1 of 2) 2008 BONE DENSITY SCREENING 10/06/2023 PNEUMOCOCCAL VACCINE (2 - PP SV23 or PCV20) 10/06/2023 03/09/2018 Lung Cancer Screening (Low D ose CT) 10/17/2023 10/16/2022, 10/07/2021, 10/07/2021, Additional history exists BMI CHECK/ADVISE 06/26/2024 02/04/2019 DEPRESSION SCREENING/FOLLOWUP 06/26/2024 CHOLESTEROL SCREENING 08/15/2024 08/15/2019, 019 INFLUENZA (#1) 2025 04/23/2018 Care Teams Electrician Ship Relationship Specialty Start Date End Date Oren Roberson MD PCP - General Internal Medicine 06/04/18
== END 2025-02-21 11:26 | disposition home or self-care (01) ==
LOC: HO.HMCFM 10:01
PROVIDERS: PCP Nurse Practitioner Family; Visit Provider Nurse Practitioner Family
DX: Z00.00 Encounter for general adult medical examination without abnormal findings (principal); J96.01 Acute respiratory failure with hypoxia; J41.0 Simple chronic bronchitis; I25.2 Old myocardial infarction; J01.40 Acute pansinusitis, unspecified; Z13.9 Encounter for screening, unspecified; F33.0 Major depressive disorder, recurrent, mild; Z78.0 Asymptomatic menopausal state; D35.02 Benign neoplasm of left adrenal gland; Z87.891 Personal history of nicotine dependence; B37.0 Candidal stomatitis; Z23 Encounter for immunization

== ENCOUNTER → 2025-02-21 13:38 | Outpatient (REF) | payer MEDICARE, MEDICAID, SELFPAY ==
--- NOTE | 2025-02-21 13:41 | CA_ITS ---
Transthoracic Echocardiogram Patient (Last, First, Middle): Earlene Causey, Gender: Female Date of : 1960 Age: 64 Procedure Date: 02/21/2025 Procedure Type: Transthoracic Echocardiogram Location: OP Height: 162.56 cm Weight: 70.31 kg BSA: 1.76 m2 Heart Rate: 72 bpm BP: 118 / 65 mmHg Lunchroom Attendant: ANTIONE Referring MD: Aris Aburto NP Symptoms: I51.81 - Takotsubo syndrome Study Quality: Adequate ECG Rhythm: Sinus Conclusions: - The left ventricular systolic function is normal. The visually estimated ejection fraction is between 60-65%. - The basal inferior and basal inferolateral segments are akinetic. - The inferoseptal wall is hypokinetic. - No obvious valvular pathology seen on this study. Findings Left Ventricle Normal left ventricular cavity size. There is normal left ventricular wall thickness. The left ventricular systolic function is normal. The visually estimated ejection fraction is between 60-65%. Diastolic function is normal for age. Wall Motion Rest Echo Findings The inferoseptal wall is hypokinetic. The basal inferior and basal inferolateral segments are akinetic. Right Ventricle Normal right ventricular cavity size. There is low normal right ventricular systolic function. Atria Both atria are normal in size. Aortic Valve There is a normal trileaflet aortic valve. There is no aortic valve stenosis. There is no aortic valve regurgitation. Mitral Valve The mitral valve appears normal. There is no mitral valve regurgitation. There is no mitral valve stenosis. Pulmonic Valve The pulmonic valve is likely normal. Tricuspid Valve There is trace tricuspid valve regurgitation. There is no evidence of pulmonary hypertension. Great Vessels The asc aorta is normal in size. Venous The inferior vena cava is normal in size and collapses greater than 50% with inspiration. Pericardium/Pleural There is no evidence of pericardial effusion. Prior Study Comparison No significant change compared to prior study dated: 09/19/2024. Recommendations, Care & Conclusions No obvious valvular pathology seen on this study. Measurements 2D Linear Measurements IVSd: 0.82 0.6-0.9/0.6-1.0 cm LVIDd: 4.83 3.9-5.3/4.2-5.9 cm LVIDd Index: 2.74 2.4-3.2/2.2-3.1 cm/m2 LVIDs: 3.88 2.0-3.6 cm LVPWd: 0.86 0.7-1.1 cm LA Diam: 3.30 2.7-3.8/3.0-4.0 cm LAIDs Index: 1.88 1.5-2.3 cm/m2 LV Mass: 168.42 67-162/88-224 g LV Mass Index: 95.70 43-95/49-115 g/m2 LVOT Diam: 1.90 3.0+(-)1.3 cm 2D Systolic Function EF 4C: 71.90 >55% EF 2C: 64.30 >55% EF BiP: 68.90 >55% Mitral Valve MV Pk E: 0.78 MV PK A: 1.02 MV Decel Time: 183.00 E/A: 0.80 E'Lateral: 9.03 E'Medial: 6.53 E/E' Med: 12.00 E/E' Lat: 8.70 PHT: 54.00 MVA PHT: 4.07 Decel [place]: 4.26 Aortic Valve AoV Pk Gaetano: 1.59 AoV Mn Gaetaon: 1.07 AoV VTI: 0.34 AoV Pk Grad: 10.00 Aov Mn Grad: 5.00 WILMAR Cont.VTI: 1.76 LVOT LVOT Pk Gaetano: 0.96 LVOT Mn Gaetano: 0.69 LVOT VTI: 0.21 LVOT Pk Grad: 4.00 LVOT Mn Grad: 2.00 LVOT Diam: 1.90 LVOT Area: 2.84 Diastolic Function MV Pk E: 0.78 MV Pk A: 1.02 E/A: 0.80 E'Medial: 6.53 E/E' Med: 12.00 E' Laterial: 9.03 E/E' Lat: 8.70 Right Ventricle TAPSE (mm): 18.70 TVS' Gaetano: 9.14 Tricuspid Valve RA Press: 3.00 Great Vessels Aorta Sinus of Valsalva: 2.80 2.0-3.5 cm Ao Asc: 2.90 2.1-3.4 cm Ao Arch: 2.90 Pulmonary Veins Pulm Vein S/D 1.40 Pulmonary Valve PV Pk Gaetano: 1.17 Peak PV Grad: 5.00 Updated in Other Vendor System with Status of Final Ermias Reis MD electronically signed on 02/22/2025 1:13:32 PM with status of Final
== END ==
LOC: HO.CARD 13:38
DX: Z00.00 Encounter for general adult medical examination without abnormal findings (principal); I51.81 Takotsubo syndrome; I31.39 Other pericardial effusion (noninflammatory); Z71.89 Other specified counseling; J01.40 Acute pansinusitis, unspecified; F33.0 Major depressive disorder, recurrent, mild; I21.4 Non-ST elevation (NSTEMI) myocardial infarction; Z78.0 Asymptomatic menopausal state; D35.02 Benign neoplasm of left adrenal gland; J96.01 Acute respiratory failure with hypoxia; J41.0 Simple chronic bronchitis; Z87.891 Personal history of nicotine dependence; B37.0 Candidal stomatitis; Z23 Encounter for immunization; Z13.1 Encounter for screening for diabetes mellitus
CPT/HCPCS: 83036; 90471; 90715; 93005; 93306; 96127; 99212

== ENCOUNTER → 2025-02-21 13:41 | Outpatient (BNV) | payer MEDICARE, MEDICAID, SELFPAY | PROVIDERS: Visit Provider Internal Medicine | DX: I51.89 Other ill-defined heart diseases (principal) | CPT/HCPCS: 93306 ==

== ENCOUNTER 2025-03-11 11:15 | Outpatient (REF) | payer MEDICARE, MEDICAID, SELFPAY ==
--- NOTE | ~2025-03-11 | MM_ITS ---
EXAMINATION: DXA BONE DENSITY AXIAL HISTORY: osteoporosis TECHNIQUE: swabr Dual energy absorptiometry (DEXA) of the lumbar spine, total left hip, and femoral neck was performed. COMPARISON: There are no prior studies for comparison. FINDINGS: The bone mineral density of the lumbar spine is 1.073 g/cm2, corresponding to a T-score of -0.9, and a Z-score of 0.6. This is indicative of normal bone mineral density. The bone mineral density of the left total hip is 0.746 g/cm2, corresponding to a T-score of -2.1, and a Z-score of -0.9. This is indicative of osteopenia. The bone mineral density of the left femoral neck is 0.689 g/cm2, corresponding to a T-score of -2.5, and a Z-score of -1.1. This is indicative of osteoporosis. FRACTURE RISK: The FRAX index suggests a risk of major osteoporotic fracture of 21.9%, and of hip fracture 2.7%. MM/XR DEXA axial skeleton IMPRESSION: Based on bone mineral density, and according to World Health Organization (WHO) criteria, the diagnosis is consistent with osteoporosis. Statistically, 68% of repeat scans fall within 1 SD (+/- 0.010 g/cm2 for AP spine L1-L4) and 1 SD (+/- 0.012 g/cm2 for femur total) FRAX is a trademark of the [employer]'s [place] [employer] Met[employer], a World Health Organization (WHO) Collaborating Center. Electronically signed by: Adama Diez MD 03/11/2025 12:05 PM EDT
--- OUTSIDE RECORDS SUMMARY | 2025-03-11 15:21 | XMS_ITS | Clinical Summary ---
Author Organization [employer] [facility] Address [address] [place] [address] Care Team Providers Care Licensing Coordinator Name Role Phone Unavailable Primary Care Provider Unavailabl e Medications Umeclidinium [place] (Incruse Ellipta) 62.5 MCG/ACT aerosol powderIndicatio ns:COPD [...] Type Department Care Team Description 01/13/[address] [facility] MEDICINE [address] [place] [phone] Samina Fisher MD Chart Prep 01/07/2025 Patient Outreach [facility] MED & PEDS [address] [place], [place] [id number] Samina Fisher MD Pre-visit Planning ([facility] unable to reach [facility] ) 12/26/2024 Orders Only [facility] MEDICINE [address] [place] [address] Toma Mcnally ANP COPD with [...] COVID-19 Vaccine ( - 2023-2 5 season) 2025 Influenza Vaccine (#1) 2025 04/23/2018 HIB Vaccines [...] patient's age to complete this topic Insurance [facility] F[employer] [place] [employer]AC[employer] PPO
== END 2025-03-11 11:16 | disposition home or self-care (01) ==
LOC: HO.MAMMO 11:15
PROVIDERS: PCP Nurse Practitioner Family; Visit Provider Nurse Practitioner Family
DX: Z12.31 Encounter for screening mammogram for malignant neoplasm of breast (principal); Z13.820 Encounter for screening for osteoporosis; Z78.0 Asymptomatic menopausal state
CPT/HCPCS: 77063; 77067; 77080

== ENCOUNTER → 2025-03-11 11:30 | Outpatient (BNV) | payer MEDICARE, MEDICAID, SELFPAY | PROVIDERS: PCP Nurse Practitioner Family; Visit Provider Radiology Diagnostic Radiology | DX: E28.39 Other primary ovarian failure (principal) | CPT/HCPCS: 77080 ==

== ENCOUNTER 2025-03-25 09:58 | Outpatient (AMB) | payer MEDICARE, MEDICAID, SELFPAY ==
[2025-03-25 10:01] VITALS: BP 112/54; PULSE 64; O2SAT 96; BMI 26.5
--- NOTE | 2025-03-25 10:01 | A.OFFVIS_ITS ---
Vital Signs 03/25/25 10:01 Height 5 ft 4 in Weight 154 lb 4 oz BMI 26.5 BP 112/54 L Blood Pressure Location Rt brachial Position Sitting Pulse 64 Pulse Source Pulse Oximeter Pulse Oximetry (%) 96 Oxygen Delivery Method Nasal Cannula Oxygen Flow Rate 1 Intake Visit Reasons: COPD Allergies codeine Allergy (Verified 03/25/25 10:04) Unknown HPI HPI COPD: Details: Earlene is a pleasant 64-year-old female, former 40+ pack year smoker, quit 10 years ago with underlying COPD, HTN and h/o acute respiratory failure and sepsis due to multifocal PNA, complicated by takotsubo cardiomyopathy and atrial fibrillation 09/10-09/25/2024. Initially required 5 L nasal cannula satting 88% and transitioned to high-flow O2, ultimately discharged home on 2 L nasal cannula. She had decreased oxygen consumption to 0.5L with exertion and NOC and at the last visit, 6MWT performed and patient continues to require 2L with exertion. She also had overnight oximetry performed which revealed significant hypoxemia, advised to maintain 2L supplemental oxygen at night. She has been maintained on Dulera and Incruse reporting good control of respiratory symptoms. Today she presents to review PFT results. Of note, she is questioning continued need for supplemental oxygen with exertion as she feels her symptoms are controlled without it at times, maintaing oxygen saturation >92%. [facility] Medical History (Updated 03/25/25 @ 21:12 by Lauren Cosby NP) Non-ST elevation IN (NSTEMI) Multifocal pneumonia No pertinent family history High cholesterol HTN (hypertension) Hx of mammogram (~2019) COPD exacerbation Urinary tract infection Surgical History (Updated 11/05/24 @ 16:55 by Aris Aburto NP) History of cardiac cath Hx of colonoscopy (~2014) Social History Household Members: Significant Other Both parents involved: No Caregiver staying overnight: No Housing: House Are you a primary home care scheduler to a significant other at home: No Do you presently have visiting nurse or other home services: No 75 years or older and lives alone: No Alcohol intake: current Alcohol intake frequency: a few times a week Patient Tobacco Use Status: Former Tobacco user e-Cigarette/Vaping Use: Never Used Second Hand Smoke Exposure: No service: No Cognitive needs: No Hearing needs: No Vision needs: Yes (wear glasses) Review of Systems Const Denies chills, Denies excessive sweating, Denies fever(s), Denies headache(s) and Denies night sweats Eyes Denies dry eyes, Denies irritation and Denies itchy eyes ENT Reports Normal hearing present, Denies headache(s), Denies nasal congestion, Denies nasal discharge, Denies post nasal drip and Denies sore throat Card Denies chest pain, Denies chest pain at rest, Denies chest pain with activity, Denies claudication, Denies leg edema, Denies dyspnea, Denies dyspnea on exertion, Denies orthopnea and Denies paroxysmal nocturnal dyspnea Resp Denies chest congestion, Denies cough, Denies excessive phlegm production, Denies pain on inspiration, Denies pain with cough, Denies dyspnea, Denies dyspnea on exertion, Denies stridor and Denies wheezing Musc Denies myalgias Neuro Reports Normal hearing present and Denies headache(s) Endo Denies excessive sweating James/Lymph Denies lymphadenopathy Aller/Immun Denies itchy eyes, Denies seasonal rhinorrhea and Denies wheezing Physical Exam Vital Signs: Last Vital Signs Pulse 64 03/25/25 10:01 BP 112/54 L 03/25/25 10:01 Pulse Ox 96 03/25/25 10:01 Oxygen Delivery Method Nasal Cannula 03/25/25 10:01 Oxygen Flow Rate 1 03/25/25 10:01 BMI result Body Mass Index 26.5 Const General: cooperative, healthy appearing, comfortable, no acute distress, well developed and alert Orientation/consciousness: patient oriented x3 Limitations: no limitations HEENT Head: Yes normal to inspection, Yes normocephalic and Yes atraumatic Ears: hearing grossly normal bilaterally and external ears normal Eyes General: appearance normal, both eyes and all related structures Eyelids: Yes eyelids normal Sclerae: sclerae normal EOM: EOMs intact bilaterally Neck Neck: Yes normal visual inspection and Yes no lymphadenopathy Lymphatic: no lymphadenopathy noted Chest Chest palpation & inspection: normal inspection of the chest Resp Effort & Inspection: normal respiratory effort, able to speak in complete sentences, no audible wheezes, no cough, no stridor, not tachypneic, no tripod positioning and no use of accessory muscles Auscultation: diminished lung sounds Cardio Jugular venous distension: no JVD Rate: regular rate Rhythm: regular rhythm Skin Other: warm, dry General skin exam: no rashes or lesions noted Neuro General: patient oriented x3 Cranial nerves: Yes Normal hearing present Cognition (Neuro): normal cognition Gait exam (Neuro): Normal gait present Extrem General: Yes normal to inspection, Yes capillary refill normal, Yes no clubbing, cyanosis or edema and Yes no pedal edema Psych Appearance: grossly normal and well kempt Speech and movement: Normal speech and movement present and Clear speech present Affect: normal affect Attitude: cooperative Thought process: Normal thought process present Thought content: Normal thought content present Insight: Good insight present (Psych) Judgement: Good judgement present (Psych) Office Procedures 6 Minute Walk Time:: 10:37 SPO2 % at rest: 96 Pulse at rest: 75 SPO2 % during excercise: 85 Pulse during excercise: 100 SPO2 % after excercise: 94 Pulse after excercise: 80 Distance in yards walked: 1,000 Ava Score: 6 Performance Observations:: Patient walked on level ground without assistance. After about one minute O2 sat dropped to 86% with pulse of 100. Stopped and O2 applied at 1L with very little improvement..could not increase O2 sat to 88% or greater on 1L. O2 increased to 2L with O2 saturation up to 94%. Completed the remainder of walk of O2 at 2L via nasal cannula maintaining O2 saturation of 94% or greater and pulse of 88 or less. Patient reports she did not feel very short of breath. Patient did require the use of supplemental oxygen. [id number] - 6 Minute Walk Assessment & Plan Assessment & Plan (1) COPD (chronic obstructive pulmonary disease): Code(s): J44.9 - Chronic obstructive pulmonary disease, unspecified Category: Medical Qualifiers: COPD type: chronic bronchitis Chronic bronchitis type: simple Qualified Code(s): J41.0 - Simple chronic bronchitis (2) History of acute respiratory failure: Code(s): Z87.09 - Personal history of other diseases of the respiratory system Category: Medical (3) Personal history of tobacco use: Code(s): Z87.891 - Personal history of nicotine dependence Category: Social Hx (4) Nocturnal hypoxemia: Code(s): G47.34 - Idiopathic sleep related nonobstructive alveolar hypoventilation Category: Medical (5) Daytime somnolence: Code(s): R40.0 - Somnolence Category: Medical Plan The patient underwent an overnight oxygen test, which indicated hypoxemia with oxygen levels dropping below 88% for three hours. This test also suggested the possibility of sleep apnea, with 42 desaturation events per hour. A sleep study was recommended to confirm the diagnosis of sleep apnea. She does endorse d aytime fatigue with known h/o nocturnal hypoxemia, will enter in lab PSG. 6MWT performed today as patient reported maintaining oxygen saturation >92% on room air, however patient quickly desaturated to 86%, continuing to need 2L of supplemental oxygen with exertion. At this time, she reports good control of respiratory symptoms using Dulera, Incruse and DuoNeb PRN. Reviewed PFT which revealed moderate COPD as well as moderately decreased DLCO suggestive of emphysema which was confirmed on prior chest CT. All questions were answered and patient is in agreement of plan. Will follow-up in 2-3 months or sooner if needed. Orders: Orders AMB 6 minute walk Today J41.0 - Simple chronic bronchitis RT PSG in-lab sleep study Today G47.34 - Idiopathic sleep related nonobstructive alveolar hypoventilation, R40.0 - Somnolence Coding Level of Care Code Est Pt Level 4 (15608) Diagnoses Simple chronic bronchitis J41.0 COPD type: chronic bronchitis Chronic bronchitis type: simple History of acute respiratory failure Z87.09 Personal history of tobacco use Z87.891 Nocturnal hypoxemia G47.34 Daytime somnolence R40.0 CPT Codes Coding ([id number])
[2025-03-25 10:56] VITALS: PULSE 75; O2SAT 96
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
--- OUTSIDE RECORDS SUMMARY | 2025-03-25 10:58 | XMS_ITS | Encounter Summary ---
Author Organization [facility] Address [address] [place] [address] Care Team Providers Care Tool Radial Drill Press Set Up Operator Name Role Phone Orne Roberson MD Primary Care Provider [phone] Encounter Details Date Type Department Care Team Description 03/26/2021 Refill Internal Medicine - [address], [address] [place] [address] Oren Roberson MD [address] [place] [address] Social History Tobacco Use Types Packs/Day Years [...] on filedocumented in this encounter Care Teams Tool Radial Drill Press Set Up Operator Relationship Specialty Start Date End Date Oren Roberson MD PCP - General Internal Medicine 06/04/18 documented as of this encounter
--- OUTSIDE RECORDS SUMMARY | 2025-03-25 10:58 | XMS_ITS | Encounter Summary ---
Author Organization [facility] Address [address] [place] [address] Care Team Providers Care Event Representative Name Role Phone Rosalind Hightower MD Primary Care Provider [facility] Oren Butler MD Primary Care Provider [phone] Encounter Details Date Type Department Care Team Description 12/13/2017 Orders Only Pulmonology - [address] [place] [phone] Cara Marcial NP Social History Tobacco Use Types Packs/Day Years [...] on filedocumented in this encounter Care Teams Event Representative Relationship Specialty Start Date End Date Rosalind Hightower MD PCP - General Internal Medicine 11/28/17 06/03/18 Oren Roberson MD PCP - General Internal Medicine 06/04/18 documented as of this encounter
--- OUTSIDE RECORDS SUMMARY | 2025-03-25 10:58 | XMS_ITS | Encounter Summary ---
Author Organization [facility] Address [address] [place] [address] Care Team Providers Care Horseback Riding Instructor Name Role Phone Rosalind Hightower MD Primary Care Provider [facility] Oren Butler MD Primary Care Provider [phone] Reason for Visit * Reason Onset Date Comments Faxed Refill 04/12/2018 Encounter Details Date Type Department Care Team Description 04/12/2018 Refill Pulmonology - [address] [place] [phone] Tru Tang MD Faxed Refill Social History Tobacco Use Types Packs/Day Years Used Date Smoking Tobacco: Former Cigarettes 1 40 Smokeless Tobacco: Never Alcohol Use Standard Drinks/Week Comments Yes 12 (1 standard drink = 0.6 oz pu re alcohol) weekly Sex Assigned at Date Recorded Not on file documented as of this encounter Miscellaneous Notes * Telephone Encounter - Viri Maxwell - 04/12/2018 10:32 AM EDT Patient would like script to be: E-PRESCRIBED/FAXED TO PHARMACY When was the patients last office visit in Adult Medicine?: When was the last time the patient saw their PCP? Does patient have an upcoming appointment? Yes [id number] (THE MEDICATION IS NOT ON THE MED LIST AND IS IDENTIFIED BELOW): {MED LIST:74922) Med name: PROAIR HFA AER Dosage: Not on form # of tablets: Local pharmacy with request for 90 -day supply Instructions: Inhale 1 puff by mouth 4 times daily as needed for sorness of breath or for wheezinf for up to 30 days. Did you check the pharmacy information above?: YES Patients current insurance carrier: Payor: [email or web address] FFS / Plan: [employer] / Product Type: MEDICAID RISK documented in this encounter Plan of Treatment Not on file documented as of this encounter Visit Diagnoses Diagnosis Chronic obstructive pulmonary disease, unspecified COPD type (HCC) documented in this encounter Care Teams Horseback Riding Instructor Relationship Specialty Start Date End Date Rosalind Hightower MD PCP - General Internal Medicine 11/28/17 06/03/18 Oren Roberson MD PCP - General Internal Medicine 06/04/18 documented as of this encounter
--- OUTSIDE RECORDS SUMMARY | 2025-03-25 10:58 | XMS_ITS | Encounter Summary ---
Author Organization [facility] Address [address] [place] [address] Care Team Providers Care Director Customer Name Role Phone Oren Roberson MD Primary Care Provider [phone] Encounter Details Date Type Department Care Team Description 02/06/2021 Refill Internal Medicine - [address], [address] [place] [address] Oren Roberson MD [address] [place] [address] Social History Tobacco Use Types Packs/Day Years [...] - Incruse maren 62.5 mcg Preferred pharmacy: [facility] [address] [place] [address] Medication renewals requested in this message routed separately: Mometasone Furo-Formoterol Fum (DULERA ) 200-5 MCG/ACT Aerosol [GRAYSON ROA MD, MD] hydrochlorothiazide (HYDRODIURIL) 25 MG tablet [Da Lott MD] documented in this encounter Plan of Treatment Not on file documented as of this encounter Visit Diagnoses Not on filedocumented in this encounter Care Teams Director Customer Relationship Specialty Start Date End Date Oren Roberson MD PCP - General Internal Medicine 06/04/18 documented as of this encounter
--- OUTSIDE RECORDS SUMMARY | 2025-03-25 10:58 | XMS_ITS | Encounter Summary ---
Author Organization [facility] Address [address] [place] [address] Care Team Providers Care Lime Kiln And Recausticizing Operator Name Role Phone Oren Roberson MD Primary Care Provider [phone] Reason for Visit * Reason Comments E-prescribe Rx Request Encounter Details Date Type Department Care Team Description 02/12/2021 Refill Internal Medicine - [address], [address] [place] [address] Oren Roberson MD [address] [place] [address] E-prescribe Rx Request Social History Tobacco Use [...] on filedocumented in this encounter Care Teams Lime Kiln And Recausticizing Operator Relationship Specialty Start Date End Date Oren Roberson MD PCP - General Internal Medicine 06/04/18 documented as of this encounter
--- OUTSIDE RECORDS SUMMARY | 2025-03-25 10:58 | XMS_ITS | Encounter Summary ---
Author Organization [facility] Address [address] [place] [address] Care Team Providers Care Assembly Associate Name Role Phone Oren Roberson MD Primary Care Provider [phone] Reason for Visit * Reason Comments E-prescribe Rx Request Encounter Details Date Type Department Care Team Description 03/21/2019 Refill Pulmonology - [place] [address] [facility] [address] [place] [address] Larry Myers MD [address] [place] [address] E-prescribe Rx Request Social History Tobacco Use Types Packs/Day Years Used Date Smoking Tobacco: Former Cigarettes 1 40 Q uit: 06/05/2015 Smokeless Tobacco: Never Alcohol Use Standard Drinks/Week Comments Yes 12 (1 standard drink = 0.6 oz pu re alcohol) weekly Sex Assigned at Date Recorded Not on file documented as of this encounter Miscellaneous Notes * Telephone Encounter - Mayuri Hanson - 03/21/2019 2:55 PM EDT Patient would like script to be: E-PRESCRIBED/FAXED TO PHARMACY WHEN WAS THE PATIENT'S LAST APPOINTMENT WITH THE PRESCRIBING PROVIDER? 03/18/19 Does patient have an upcoming appointment? Yes 09/16/2019 (THE MEDICATION REQUESTED IS ON THE MED LIST ABOVE) All of the medications requested were on the CURRENT MEDS list Did you check the Pharmacy information above?: YES Patient wants: 90 -day supply Is this a mail order prescription request ? NO Patients current insurance carrier is: Payor: [employer] FFS / Plan: [employer] [place] / Product Type: MEDICAID RISK documented in this encounter Plan of Treatment Not on file documented as of this encounter Visit Diagnoses Not on filedocumented in this encounter Care Teams Assembly Associate Relationship Specialty Start Date End Date Oren Roberson MD PCP - General Internal Medicine 06/04/18 documented as of this encounter
--- OUTSIDE RECORDS SUMMARY | 2025-03-25 10:58 | XMS_ITS | Clinical Summary ---
Author Organization [employer] Address [address] [facility] [address] [place] [address] Care Team Providers Care Information Technology Manager Name Role Phone Unavailable Primary Care Provider Unavailabl e Medications Umeclidinium Gipsy (Incruse Ellipta) 62.5 MCG/ACT aerosol powderIndicatio ns:COPD with hypoxia (CMS/HCC) ([facility]) Inhale 1 Act (62.5 mcg) Once per day. 30 each 5 Active Dulera 100-5 MCG/ACT inhalerIndicati ons:COPD with hypoxia (CMS/HCC) (HCC) 5 Active ipratropium-alb uterol (Duo-Neb) 0.5-2.5 mg/3 mL nebulizer solutionIndicat ions:COPD with hypoxia (CMS/HCC) ([facility]) INHALE 1 AMPULE USING A NEBULIZER THREE TIMES DAILY DIRECTED 5 Active Active Problems Problem Noted Date Diagnosed Date COPD with hypoxia (CMS/HCC) 12/26/2024 Encounters Date Type Department Care Team Description 01/13/2025 Telephone [facility] MEDICINE [address] [place] [address] Samina Fisher MD Chart Prep 01/07/2025 Patient Outreach [facility] MED & PEDS [address] [place], [place] [id number] Samina Fisher MD Pre-visit Planning ([facility] unable to reach [facility] ) 12/26/2024 Orders Only [facility] MEDICINE [address] [place] [address] Toma Mcnally ANP COPD with [...] series) 2018 COVID-19 Vaccine (2023-2 5 season) 2025 Influenza Vaccine (#1) 2025 [...] patient's age to complete this topic Insurance [facility] [employer] [place] MEDIC[place] REPLAC[place] PPO
--- OUTSIDE RECORDS SUMMARY | 2025-03-25 10:58 | XMS_ITS | Encounter Summary ---
Author Organization [facility] Address [address] [place] [address] Care Team Providers Care Beater Head Name Role Phone Venus Hurley MD Primary Care Provider UnavailRosalind Alcala MD Primary Care Provider Unavailab Oren Butler MD Primary Care Provider [phone] Encounter Details Date Type Department Care Team Description 06/08/2017 Transfer Records Medical Records [address] [place] [address] Abstract, Provider Social History Tobacco Use Types [...] on filedocumented in this encounter Care Teams Beater Head Relationship Specialty Start Date End Date Venus Hurley MD PCP - General Internal Medicine 06/05/17 11/27/17 Rosalind Hightower MD PCP - General Internal Medicine 11/28/17 06/03/18 Oren Roberson MD PCP - General Internal Medicine 06/04/18 documented as of this encounter
--- OUTSIDE RECORDS SUMMARY | 2025-03-25 10:58 | XMS_ITS | Encounter Summary ---
Author Organization [facility] Address [address] [place] [address] Care Team Providers Care Supervisor Treating And Pumping Name Role Phone Venus Hurley MD Primary Care Provider UnavailRosalind Alcala MD Primary Care Provider Unavailab Oren Butler MD Primary Care Provider [phone] Encounter Details Date Type Department Care Team Description 06/09/2017 Release of Information Medical Records [address] [place] [address] Abstract, Provider Social History Tobacco Use Types [...] on filedocumented in this encounter Care Teams Supervisor Treating And Pumping Relationship Specialty Start Date End Date Venus Hurley MD PCP - General Internal Medicine 06/05/17 11/27/17 Rosalind Hightower MD PCP - General Internal Medicine 11/28/17 06/03/18 Oren Roberson MD PCP - General Internal Medicine 06/04/18 documented as of this encounter
--- OUTSIDE RECORDS SUMMARY | 2025-03-25 10:58 | XMS_ITS | Encounter Summary ---
Author Organization [facility] Address [address] [place] [address] Care Team Providers Care Plasterer Apprentice Name Role Phone Oren Roberson MD Primary Care Provider [phone] Encounter Details Date Type Department Care Team Description 08/15/2019 Telephone Internal Medicine - [address], [address] [place] [address] Oren Roberson MD [address] [place] [address] Social History Tobacco Use Types Packs/Day Years Used Date Smoking Tobacco: Former Cigarettes 1 40 Q uit: 06/05/2015 Smokeless Tobacco: Never Alcohol Use Standard Drinks/Week Comments Yes 12 (1 standard drink = 0.6 oz pu re alcohol) weekly Sex Assigned at Date Recorded Not on file documented as of this encounter Miscellaneous Notes * Telephone Encounter - Mike Valadez M.A. - 08/15/2019 2:01 PM EST ----- Message from Oren Roberson MD sent at 08/15/2019 1:06 PM EST ----- Labs are looking better and stable. Hemoglobin is down documented in this encounter Plan of Treatment Not on file documented as of this encounter Visit Diagnoses Not on filedocumented in this encounter Care Teams Plasterer Apprentice Relationship Specialty Start Date End Date Oren Roberson MD PCP - General Internal Medicine 06/04/18 documented as of this encounter
--- OUTSIDE RECORDS SUMMARY | 2025-03-25 10:58 | XMS_ITS | Encounter Summary ---
Author Organization [facility] Address [address] [place] [address] Care Team Providers Care Sales Assistant Displays Name Role Phone Oren Roberson MD Primary Care Provider Reason for Visit * Reason Onset Date Comments Faxed Refill 08/06/2018 Encounter Details Date Type Department Care Team Description 08/06/2018 Refill Pulmonology - [address] [place] [address] rTu Tang MD Faxed Refill Social History Tobacco [...] NO Patients current insurance carrier is: Payor: [employer] FFS / Plan: VLAD[employer]IR LARKIN / Product Type: MEDICAID RISK documented in this encounter Plan of Treatment Not on file documented as of this encounter Visit Diagnoses Diagnosis Chronic obstructive pulmonary disease, unspecified COPD type (HCC) documented in this encounter Care Teams Sales Assistant Displays Relationship Specialty Start Date End Date Oren Roberson MD PCP - General Internal Medicine 06/04/18 documented as of this encounter
--- OUTSIDE RECORDS SUMMARY | 2025-03-25 10:58 | XMS_ITS | Encounter Summary ---
Author Organization [facility] Address [address] [place] [address] Care Team Providers Care Tourist Home Keeper Name Role Phone Oren Roberson MD Primary Care Provider [phone] Reason for Visit * Reason Onset Date Comments refill request 02/13/2019 Encounter Details Date Type Department Care Team Description 02/13/2019 Telephone Internal Medicine - [address], [address] [place] [address] Oren Roberson MD [address] [place] [address] refill request Social History Tobacco Use Types [...] N/A Patients current insurance carrier is: Payor: [employer] FFS / Plan: [employer] / Product Type: MEDICAID RISK documented in this encounter Plan of Treatment Not on file documented as of this encounter Visit Diagnoses Not on filedocumented in this encounter Care Teams Tourist Home Keeper Relationship Specialty Start Date End Date Oren Roberson MD PCP - General Internal Medicine 06/04/18 documented as of this encounter
--- OUTSIDE RECORDS SUMMARY | 2025-03-25 10:58 | XMS_ITS | Encounter Summary ---
Author Organization [facility] Address [address] [place] [address] Care Team Providers Care Dipper And Baker Name Role Phone Oren Roberson MD Primary Care Provider [phone] Encounter Details Date Type Department Care Team Description 08/28/2020 Refill Internal Medicine - [address], [address] [place] [address] Oren Roberson MD [address] [place] [address] Social History Tobacco Use Types Packs/Day Years [...] on filedocumented in this encounter Care Teams Dipper And Baker Relationship Specialty Start Date End Date Oren Roberson MD PCP - General Internal Medicine 06/04/18 documented as of this encounter
--- OUTSIDE RECORDS SUMMARY | 2025-03-25 10:59 | XMS_ITS | Encounter Summary ---
Author Organization [facility] Address [address] [place] [address] Care Team Providers Care Director Of Mechanical Engineering Name Role Phone Oren Roberson MD Primary Care Provider [phone] Reason for Visit * Reason Onset Date Comments refill request 03/03/2020 Encounter Details Date Type Department Care Team Description 03/03/2020 Refill Pulmonology - [place] [address] [facility] [address] [place] [address] Larry Myers MD [address] [place] [phone] refill request Social History Tobacco Use Types [...] (HCC) documented in this encounter Care Teams Director Of Mechanical Engineering Relationship Specialty Start Date End Date Oren Roberson MD PCP - General Internal Medicine 06/04/18 documented as of this encounter
--- OUTSIDE RECORDS SUMMARY | 2025-03-25 10:59 | XMS_ITS | Clinical Summary ---
Author Organization [facility] Address [address] [place] [address] Care Team Providers Care Angiography Technologist Name Role Phone Oren Roberson MD Primary Care Provider [phone] Allergies Active Allergy Reactions Severity Noted Date [...] 019 INFLUENZA (#1) 2025 04/23/2018 Care Teams Angiography Technologist Relationship Specialty Start Date End Date Oren Roberson MD PCP - General Internal Medicine 06/04/18
--- OUTSIDE RECORDS SUMMARY | 2025-03-25 10:59 | XMS_ITS | Encounter Summary ---
Author Organization [facility] Address [address] [place] [address] Care Team Providers Care Transit Operator Name Role Phone Oren Roberson MD Primary Care Provider [phone] Reason for Visit * Reason Comments E-prescribe Rx Request Encounter Details Date Type Department Care Team Description 09/02/2019 Refill Pulmonology - [place] [address] [facility] [address] [place] [address] Larry Myers MD [address] [place] [address] E-prescribe Rx Request Social History Tobacco Use Types Packs/Day Years Used Date Smoking Tobacco: Former Cigarettes 1 40 Q uit: 06/05/2015 Smokeless Tobacco: Never Alcohol Use Standard Drinks/Week Comments Yes 12 (1 standard drink = 0.6 oz pu re alcohol) weekly Sex Assigned at Date Recorded Not on file documented as of this encounter Miscellaneous Notes * Telephone Encounter - Gabby Cobos - 09/02/2019 4:36 PM EDT Patient would like script to be: E-PRESCRIBED/FAXED TO PHARMACY WHEN WAS THE PATIENT'S LAST APPOINTMENT IN ADULT MEDICINE? 08/08/2019 WHEN WAS THE LAST TIME THE PATIENT [...] N/A Patients current insurance carrier is: Payor: [employer] FFS / Plan: [employer] PLAN / Product Type: MEDICAID RISK documented in this encounter Plan of Treatment Not on file documented as of this encounter Visit Diagnoses Diagnosis Chronic obstructive pulmonary disease, unspecified COPD type (HCC) documented in this encounter Care Teams Transit Operator Relationship Specialty Start Date End Date Oren Roberson MD PCP - General Internal Medicine 06/04/18 documented as of this encounter
--- OUTSIDE RECORDS SUMMARY | 2025-03-25 10:59 | XMS_ITS | Encounter Summary ---
Author Organization [facility] Address [address] [place] [address] Care Team Providers Care Dinkey Brakeman Name Role Phone Oren Roberson MD Primary Care Provider [phone] Reason for Visit * Reason Onset Date Comments Faxed Refill 09/02/2019 [facility] Encounter Details Date Type Department Care Team Description 09/02/2019 Refill Internal Medicine - [address], [address] [place] [address] Oren Roberson MD [address] [place] [address] Faxed Refill ([facility]) Social History Tobacco Use Types Packs/Day Years Used Date Smoking Tobacco: Former Cigarettes 1 40 Q uit: 06/05/2015 Smokeless Tobacco: Never Alcohol Use Standard Drinks/Week Comments Yes 12 (1 standard drink = 0.6 oz pu re alcohol) weekly Sex Assigned at Date Recorded Not on file documented as of this encounter Miscellaneous Notes * Telephone Encounter - Meghna Tang - 09/02/2019 4:37 PM EDT Patient would like script to be: E-PRESCRIBED/FAXED TO PHARMACY WHEN WAS THE PATIENT'S LAST APPOINTMENT IN ADULT MEDICINE? 08/08/2019 WHEN WAS THE LAST TIME THE PATIENT SAW THEIR PCP? Same as above Does patient have an upcoming appointment? Yes 02/06/2020 (THE MEDICATION REQUESTED IS ON THE MED [...] N/A Patients current insurance carrier is: Payor: [employer] FFS / Plan: [employer] PLAN / Product Type: MEDICAID RISK documented in this encounter Plan of Treatment Not on file documented as of this encounter Visit Diagnoses Diagnosis Chronic obstructive pulmonary disease, unspecified COPD type (HCC) documented in this encounter Care Teams Dinkey Brakeman Relationship Specialty Start Date End Date Oren Roberson MD PCP - General Internal Medicine 06/04/18 documented as of this encounter
== END 2025-03-25 10:57 | disposition home or self-care (01) ==
LOC: HO.HPSW 09:59
PROVIDERS: PCP Nurse Practitioner Family; Visit Provider Nurse Practitioner Family
DX: J41.0 Simple chronic bronchitis (principal); Z87.09 Personal history of other diseases of the respiratory system; Z87.891 Personal history of nicotine dependence; G47.34 Idiopathic sleep related nonobstructive alveolar hypoventilation; R40.0 Somnolence
CPT/HCPCS: 94618; 99214

== ENCOUNTER → 2025-03-25 09:58 | Outpatient (BNVA) | payer MEDICARE, MEDICAID, SELFPAY | PROVIDERS: PCP Nurse Practitioner Family; Visit Provider Nurse Practitioner Family | DX: J41.0 Simple chronic bronchitis (principal); R40.0 Somnolence; Z87.09 Personal history of other diseases of the respiratory system; Z87.891 Personal history of nicotine dependence; G47.34 Idiopathic sleep related nonobstructive alveolar hypoventilation | CPT/HCPCS: 94618; 99212 ==

== ENCOUNTER → 2025-04-15 19:30 | Outpatient (REF) | payer MEDICARE, MEDICAID, SELFPAY ==
--- OUTSIDE RECORDS SUMMARY | 2025-04-15 21:51 | XMS_ITS | Clinical Summary ---
Author Organization [employer] Address [address] [facility] [address] [place] [address] Care Team Providers Care Roving Or Yarn Color Checker Name Role Phone Unavailable Primary Care Provider Unavailabl e Medications Umeclidinium [place] (Incruse Ellipta) 62.5 MCG/ACT aerosol powderIndicatio ns:COPD with hypoxia (CMS/HCC) ([facility]) Inhale 1 Act (62.5 mcg) Once per day. 30 each 5 Active Dulera 100-5 MCG/ACT inhalerIndicati ons:COPD with hypoxia (CMS/HCC) (HCC) 5 Active ipratropium-alb uterol (Duo-Neb) 0.5-2.5 mg/3 mL nebulizer solutionIndicat ions:COPD with hypoxia (CMS/HCC) ([facility]) INHALE 1 AMPULE USING A NEBULIZER THREE TIMES DAILY DIRECTED 5 Active Active Problems Problem Noted Date Diagnosed Date COPD with hypoxia (CMS/HCC) 12/26/2024 Encounters Date Type Department Care Team Description 01/13/[address] [facility] [address] [place] [phone] Samina Fisher MD Chart Prep from Last 3 Months Immunizations Immunization Administration [...] patient's age to complete this topic Insurance HSN FULL [employer] [place] REPLAC[place] PPO
== END ==
LOC: HO.SL 19:30
PROVIDERS: PCP Nurse Practitioner Family; Visit Provider Nurse Practitioner Family
DX: G47.34 Idiopathic sleep related nonobstructive alveolar hypoventilation (principal); R40.0 Somnolence
CPT/HCPCS: 95810

== ENCOUNTER → 2025-04-15 22:22 | Outpatient (BNV) | payer MEDICARE, MEDICAID, SELFPAY | PROVIDERS: PCP Nurse Practitioner Family; Visit Provider Internal Medicine | DX: R06.83 Snoring (principal); G47.61 Periodic limb movement disorder | CPT/HCPCS: 95810 ==

== ENCOUNTER → 2025-04-16 10:00 | Outpatient (BNV) | payer MEDICARE, MEDICAID, SELFPAY | PROVIDERS: PCP Nurse Practitioner Family; Visit Provider Internal Medicine | DX: N63.25 Unspecified lump in the left breast, overlapping quadrants (principal) | CPT/HCPCS: 76642; 77065; G0279 ==

== ENCOUNTER 2025-04-16 10:09 | Outpatient (REF) | payer MEDICARE, MEDICAID, SELFPAY ==
--- NOTE | ~2025-04-16 | MM_ITS ---
EXAMINATION: MM DIAGNOSTIC DIGITAL BREAST TOMOSYNTHESIS, LEFT Limited left breast ultrasound. CLINICAL INFORMATION: Call back from screening for left breast asymmetries with calcifications. COMPARISON: Mammography: Prior's on PACS. TECHNIQUE: Digital breast tomosynthesis is performed in both the craniocaudal and mediolateral oblique views along with computer-aided detection (CAD). Synthesized 2D images are generated from the tomosynthesis. FINDINGS: The breasts are heterogeneously dense, which may obscure small masses. There is an irregular spiculated mass with associated amorphous calcifications in the upper outer breast middle to posterior depth. Asymmetry seen on MLO view just superior and posterior to the irregular spiculated mass with associated amorphous calcifications. Circumscribed oval mass upper central breast. No other suspicious abnormal findings. Targeted color Doppler ultrasound scanning from 90 3:00 demonstrates at 2:00 3 cm from the nipple a solid irregular hypoechoic mass measuring 13 x 11 x 12 mm correlating with the solid irregular mass with distortion on mammography. At 12:00 2 7 m from nipple there are 2 adjacent minimally complicated cysts together measuring 10 x 7 x 10 mm. At 1:00 2 cm from the nipple there is a minimally computed cyst measuring 8 x 5 x 7 mm. Otherwise there is no suspicious other sonographic abnormal finding. MM/MM tomosynthesis added views L IMPRESSION: Left: 1. Solid irregular mass at 3:00 on ultrasound. Recommend ultrasound-guided core needle biopsy for histologic confirmation. The findings and recommendations were discussed with the patient the procedure will be scheduled. 2. Asymmetry with associated amorphous calcifications just superior posterior to the solid irregular mass at 3:00 only seen on MLO view. Recommend stereotactic core needle biopsy at this time. 3. Complicated cysts at 1:00 and 12:00 ultrasound-guided cyst aspiration/biopsy recommended at this time. ASSESSMENT: BI-RADS Category 4: Suspicious RECOMMENDATION: Biopsy recommended Results were provided to the patient at time of visit by the technologist. Electronically signed by: Yolie Jordan DO 04/16/2025 03:54 PM EDT
--- OUTSIDE RECORDS SUMMARY | 2025-04-16 12:26 | XMS_ITS | Clinical Summary ---
Author Organization [employer] Address [address] [facility] [address] [place] [address] Care Team Providers Care Creative Director Name Role Phone Unavailable Primary Care Provider Unavailabl e Medications Umeclidinium [place] (Incruse Ellipta) 62.5 MCG/ACT aerosol powderIndicatio ns:COPD with hypoxia (CMS/HCC) ([facility]) Inhale 1 Act (62.5 mcg) Once per day. 30 each 5 Active Dulera 100-5 MCG/ACT inhalerIndicati ons:COPD with hypoxia (CMS/HCC) ([facility]) 5 Active ipratropium-alb uterol (Duo-Neb) 0.5-2.5 mg/3 mL nebulizer solutionIndicat ions:COPD with hypoxia (CMS/HCC) ([facility]) INHALE 1 AMPULE USING A NEBULIZER THREE TIMES DAILY DIRECTED 5 Active Active Problems Problem Noted Date Diagnosed Date COPD with hypoxia (CMS/HCC) 12/26/2024 Immunizations Immunization Administration Dates Next Due Influenza, [...] 60-74 years 1-dose series) 2018 COVID-19 Vaccine (1 - 2023-2 5 season) 2025 Influenza Vaccine [...] to complete this topic Insurance HSN FULL [facility] MEDICARE REPLACEMENT PPO
== END 2025-04-16 10:10 | disposition home or self-care (01) ==
LOC: HO.MAMMO 10:09
PROVIDERS: PCP Nurse Practitioner Family; Visit Provider Nurse Practitioner Family
DX: N64.89 Other specified disorders of breast (principal)
CPT/HCPCS: 76642; 77061; 77065

== ENCOUNTER 2025-04-24 13:50 | Outpatient (REF) | payer MEDICARE, MEDICAID, SELFPAY ==
[2025-04-24 14:51] LABS: Anion Gap 12 (12-20); Blood Urea Nitrogen 14 mg/dL (9-16); Calcium 9.7 mg/dL (8.4-10.2); Carbon Dioxide 31 mmol/L (22-29); Chloride 105 mmol/L (96-108); Estimated Glomerular Filt Rate > 60; Potassium 4.5 mmol/L (3.3-5.1); Sodium 143 mmol/L (135-145)
--- OUTSIDE RECORDS SUMMARY | 2025-04-24 16:48 | XMS_ITS | Clinical Summary ---
Author Organization [email or web address] Address [address] [facility] [address] [place] [address] Care Team Providers Care Transit Mechanic Name Role Phone Unavailable Primary Care Provider Unavailabl e Medications Umeclidinium [place] (Incruse Ellipta) 62.5 MCG/ACT aerosol powderIndicatio ns:COPD [...] to complete this topic Insurance HSN FULL [facility] MEDICARE REPLACEMENT PPO
== END 2025-04-24 13:51 | disposition home or self-care (01) ==
LOC: HO.LAB 13:50
PROVIDERS: PCP Nurse Practitioner Family
DX: R93.1 Abnormal findings on diagnostic imaging of heart and coronary circulation (principal)
CPT/HCPCS: 36415; 80048

== ENCOUNTER 2025-04-25 13:36 | Outpatient (AMB) | payer MEDICARE, MEDICAID, SELFPAY ==
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
[2025-04-25 13:53] VITALS: BP 126/56; PULSE 82; BMI 26.8
--- OUTSIDE RECORDS SUMMARY | 2025-04-25 14:34 | XMS_ITS | Clinical Summary ---
Author Organization [employer] Address [address] [facility] [address] [place] [address] Care Team Providers Care Family Physician Name Role Phone Unavailable Primary Care Provider Unavailabl e Medications Umeclidinium [place] (Incruse Ellipta) 62.5 MCG/ACT aerosol powderIndicatio ns:COPD with hypoxia (CMS/HCC) ([facility]) Inhale 1 Act (62.5 mcg) Once per day. 30 each 5 Active Dulera 100-5 MCG/ACT inhalerIndicati ons:COPD with hypoxia (CMS/HCC) ([facility]) 5 Active ipratropium-alb uterol (Duo-Neb) 0.5-2.5 mg/3 mL nebulizer solutionIndicat ions:COPD with hypoxia (CMS/HCC) ([facility]) INHALE 1 AMPULE USING A NEBULIZER THREE [...] to complete this topic Insurance HSN FULL [facility] MEDIC[facility] REPLACEMENT PPO
== END 2025-04-25 14:12 | disposition home or self-care (01) ==
LOC: HO.HGS 13:37
PROVIDERS: PCP Nurse Practitioner Family; Visit Provider Surgery
DX: R92.8 Other abnormal and inconclusive findings on diagnostic imaging of breast (principal)
CPT/HCPCS: 99204

== ENCOUNTER → 2025-04-25 13:36 | Outpatient (BNVA) | payer MEDICARE, MEDICAID, SELFPAY | PROVIDERS: PCP Nurse Practitioner Family; Visit Provider Surgery | DX: R92.8 Other abnormal and inconclusive findings on diagnostic imaging of breast (principal) | CPT/HCPCS: 99202 ==

== ENCOUNTER 2025-04-28 07:58 | Outpatient (REF) | payer MEDICARE, MEDICAID, SELFPAY ==
--- NOTE | ~2025-04-28 | US_ITS ---
EXAMINATION/PROCEDURES: 1. ULTRASOUND GUIDED CORE BIOPSY BREAST, LEFT 2. US GUIDED BREAST CYST ASPIRATION LEFT 3. MAMMO BREAST US GUIDED CYST ASPIRATION ADDITIONAL (LEFT) 4. STEREOTACTIC NEEDLE CORE BIOPSY OF THE LEFT BREAST (ATTEMPTED) 5. POST PROCEDURE DIGITAL MAMMOGRAM, LEFT CLINICAL INFORMATION: Patient is status post diagnostic mammogram/ultrasound workup on April 16, 2025 that recommended the following: -Ultrasound-guided needle core biopsy of left breast solid mass at 3 o'clock position 6 cm from the nipple measuring 1.3 x 1.1 x 1.2 cm. -Ultrasound-guided cyst aspiration of complicated cysts at 1 o'clock position at 2 cm from the nipple (0.8 x 0.5 x 0.7 cm) and 2 adjacent cysts at 12 o'clock position 2 cm from the nipple (1.0 x 1.0 x 1.0 cm and 0.8 x 0.7 x 0.6 cm). -Stereotactic needle core biopsy of the mammographic asymmetry located in the upper breast on the MLO view, just superior to the solid mass located at 3 o'clock position. COMPARISON: Left diagnostic mammogram/ultrasound workup on April 16, 2025. Screening mammogram on March 11, 2025. FINDINGS: I) Ultrasound-guided procedures. Proper informed consent is obtained from the patient after discussion of the ultrasound-guided procedures, potential risks and complications, and alternatives. Patient was given an opportunity for questions. The patient appeared to understand. The patient consented to the procedure and signed the consent form. I. 1) ultrasound-guided needle core biopsy GUIDANCE: Ultrasound-guided; aseptic technique. LESION: Solid mass at 3 o'clock position 6 cm from the nipple (1.3 x 1.0 x 1.1 cm). APPROACH: Lateral. ANESTHESIA: 7 cc of lidocaine 2% buffered with Sodium Bicarbonate 8.4% (9ml:1ml ratio). NEEDLE: 14-gauge Bard Marquee biopsy device with co-axial introducer. CORES: 3. CLIP: HydroMARK; shape: butterfly. I. 2) ultrasound guided cyst aspiration GUIDANCE: Ultrasound-guided; aseptic technique. LESION: 2 adjacent cysts at 12 o'clock position 2 cm from the nipple measuring 1.0 x 0.9 cm and 0.8 x 0.7 cm. ANESTHESIA: 2 cc of lidocaine 2% buffered with Sodium Bicarbonate 8.4% (9ml:1ml ratio). NEEDLE: 18-gauge hypodermic needle. Approximately 1 cc of dark watery fluid was aspirated and discarded. I.3) ultrasound guided cyst aspiration GUIDANCE: Ultrasound-guided; aseptic technique. LESION: Cyst with peripheral calcification at 1 o'clock position at 2 cm from the nipple (0.6 x 0.6 cm). ANESTHESIA: 1 cc of lidocaine 2% buffered with Sodium Bicarbonate 8.4% (9ml:1ml ratio). NEEDLE: 18-gauge hypodermic needle Approximately 0.5 cc of dark watery fluid was aspirated and discarded. II Stereotactic needle core biopsy TECHNIQUE/PROCEDURE: Informed consent was obtained from the patient after discussion of the benefits, risks, and alternatives to biopsy today. Patient appeared to understand. Gave opportunity for questions. Patient signed consent form. BIOPSY TABLE: [employer] Prone Biopsy System. LESION: Asymmetry seen in the upper breast posterior depth on the MLO view, located superior to the ultrasound-guided needle core biopsy target. Multiple views obtained from lateral approach at the expected location of the targeted asymmetry. However, the target could not be identified with confidence, potentially due to inflammatory changes and lidocaine administration of the ultrasound-guided needle core biopsy of the adjacent lesion. Therefore, stereotactic needle core biopsy was aborted. III POST PROCEDURE UNILATERAL DIGITAL MAMMOGRAM: The post biopsy mammogram is performed in separate room using separate digital mammography equipment from the biopsy procedure. ML 90 degrees, MLO and CC views are obtained. The butterfly shaped clip marker (placed under ultrasound guidance) is in satisfactory position. No gross hematoma. The patient tolerated the procedure well. No immediate complications. Home instructions reviewed with the patient. Final pathology results are pending. US/US breast cyst asp ea add IMPRESSION: 1. Status post ultrasound-guided core biopsy left breast solid mass at 3 o'clock position 6 cm from the nipple. Clip placed: HydroMARK; shape: butterfly. 2. Ultrasound-guided left breast cyst aspirations at 12:00 and 1:00. 3. Aborted left stereotactic needle core biopsy. Given the fact that the target asymmetry was located at approximately 1.0 cm from the margins of the ultrasound-guided biopsy of the mass, if needed, this most likely can be excised together with the mass biopsy today. 4. Pathology pending. An addendum report will be issued. Electronically signed by: Leanne Novak MD 04/28/2025 01:45 PM EST
--- NOTE | ~2025-04-28 | US_ITS ---
EXAMINATION/PROCEDURES: 1. ULTRASOUND GUIDED CORE BIOPSY BREAST, LEFT 2. US GUIDED BREAST CYST ASPIRATION LEFT 3. MAMMO BREAST US GUIDED CYST ASPIRATION ADDITIONAL (LEFT) 4. STEREOTACTIC NEEDLE CORE BIOPSY OF THE LEFT BREAST (ATTEMPTED) 5. POST PROCEDURE DIGITAL MAMMOGRAM, LEFT CLINICAL INFORMATION: Patient is status post diagnostic mammogram/ultrasound workup on April 16, 2025 that recommended the following: -Ultrasound-guided needle core biopsy of left breast solid mass at 3 o'clock position 6 cm from the nipple measuring 1.3 x 1.1 x 1.2 cm. -Ultrasound-guided cyst aspiration of complicated cysts at 1 o'clock position at 2 cm from the nipple (0.8 x 0.5 x 0.7 cm) and 2 adjacent cysts at 12 o'clock position 2 cm from the nipple (1.0 x 1.0 x 1.0 cm and 0.8 x 0.7 x 0.6 cm). -Stereotactic needle core biopsy of the mammographic asymmetry located in the upper breast on the MLO view, just superior to the solid mass located at 3 o'clock position. COMPARISON: Left diagnostic mammogram/ultrasound workup on April 16, 2025. Screening mammogram on March 11, 2025. FINDINGS: I) Ultrasound-guided procedures. Proper informed consent is obtained from the patient after discussion of the ultrasound-guided procedures, potential risks and complications, and alternatives. Patient was given an opportunity for questions. The patient appeared to understand. The patient consented to the procedure and signed the consent form. I. 1) ultrasound-guided needle core biopsy GUIDANCE: Ultrasound-guided; aseptic technique. LESION: Solid mass at 3 o'clock position 6 cm from the nipple (1.3 x 1.0 x 1.1 cm). APPROACH: Lateral. ANESTHESIA: 7 cc of lidocaine 2% buffered with Sodium Bicarbonate 8.4% (9ml:1ml ratio). NEEDLE: 14-gauge Bard Marquee biopsy device with co-axial introducer. CORES: 3. CLIP: HydroMARK; shape: butterfly. I. 2) ultrasound guided cyst aspiration GUIDANCE: Ultrasound-guided; aseptic technique. LESION: 2 adjacent cysts at 12 o'clock position 2 cm from the nipple measuring 1.0 x 0.9 cm and 0.8 x 0.7 cm. ANESTHESIA: 2 cc of lidocaine 2% buffered with Sodium Bicarbonate 8.4% (9ml:1ml ratio). NEEDLE: 18-gauge hypodermic needle. Approximately 1 cc of dark watery fluid was aspirated and discarded. I.3) ultrasound guided cyst aspiration GUIDANCE: Ultrasound-guided; aseptic technique. LESION: Cyst with peripheral calcification at 1 o'clock position at 2 cm from the nipple (0.6 x 0.6 cm). ANESTHESIA: 1 cc of lidocaine 2% buffered with Sodium Bicarbonate 8.4% (9ml:1ml ratio). NEEDLE: 18-gauge hypodermic needle Approximately 0.5 cc of dark watery fluid was aspirated and discarded. II Stereotactic needle core biopsy TECHNIQUE/PROCEDURE: Informed consent was obtained from the patient after discussion of the benefits, risks, and alternatives to biopsy today. Patient appeared to understand. Gave opportunity for questions. Patient signed consent form. BIOPSY TABLE: [employer] Prone Biopsy System. LESION: Asymmetry seen in the upper breast posterior depth on the MLO view, located superior to the ultrasound-guided needle core biopsy target. Multiple views obtained from lateral approach at the expected location of the targeted asymmetry. However, the target could not be identified with confidence, potentially due to inflammatory changes and lidocaine administration of the ultrasound-guided needle core biopsy of the adjacent lesion. Therefore, stereotactic needle core biopsy was aborted. III POST PROCEDURE UNILATERAL DIGITAL MAMMOGRAM: The post biopsy mammogram is performed in separate room using separate digital mammography equipment from the biopsy procedure. ML 90 degrees, MLO and CC views are obtained. The butterfly shaped clip marker (placed under ultrasound guidance) is in satisfactory position. No gross hematoma. The patient tolerated the procedure well. No immediate complications. Home instructions reviewed with the patient. Final pathology results are pending. US/US breast ndl core biopsy LT IMPRESSION: 1. Status post ultrasound-guided core biopsy left breast solid mass at 3 o'clock position 6 cm from the nipple. Clip placed: HydroMARK; shape: butterfly. 2. Ultrasound-guided left breast cyst aspirations at 12:00 and 1:00. 3. Aborted left stereotactic needle core biopsy. Given the fact that the target asymmetry was located at approximately 1.0 cm from the margins of the ultrasound-guided biopsy of the mass, if needed, this most likely can be excised together with the mass biopsy today. 4. Pathology pending. An addendum report will be issued. Electronically signed by: Leanne Novak MD 04/28/2025 01:[address] [facility]
--- OUTSIDE RECORDS SUMMARY | 2025-04-28 08:01 | XMS_ITS | Encounter Summary ---
Author Organization [facility] Address [address] [place] [address] Care Team Providers Care Etcher Printed Circuit Boards Name Role Phone Oren Roberson MD Primary Care Provider Encounter Details Date Type Department Care Team Description 10/07/2021 General Inspector Report Medical Records [address] [place] [address] Center, [facility] [address] [place] [address] Social History Tobacco Use Types Packs/Day Years [...] on filedocumented in this encounter Care Teams Etcher Printed Circuit Boards Relationship Specialty Start Date End Date Oren Roberson MD PCP - General Internal Medicine 06/04/18 documented as of this encounter
--- OUTSIDE RECORDS SUMMARY | 2025-04-28 08:01 | XMS_ITS | Encounter Summary ---
Author Organization [facility] Address [address] [place] [address] Care Team Providers Care Fishing Line Winding Machine Operator Name Role Phone Oren Roberson MD Primary Care Provider [phone] Encounter Details Date Type Department Care Team Description 10/07/2021 Zipper Repairer Report Medical Records [address] [place] [address] Abstract, Provider Social History Tobacco Use Types [...] on filedocumented in this encounter Care Teams Fishing Line Winding Machine Operator Relationship Specialty Start Date End Date Oren Roberson MD PCP - General Internal Medicine 06/04/18 documented as of this encounter
--- OUTSIDE RECORDS SUMMARY | 2025-04-28 08:01 | XMS_ITS | Clinical Summary ---
Author Organization [email or web address] Address [address] [facility] [address] [place] [address] Care Team Providers Care Bus Van Driver Name Role Phone Unavailable Primary Care Provider Unavailabl e Medications Umeclidinium [place] (Incruse Ellipta) 62.5 MCG/ACT aerosol powderIndicatio ns:COPD with hypoxia (CMS/HCC) ([facility]) Inhale 1 Act (62.5 mcg) Once per day. 30 each 5 Active Dulera 100-5 MCG/ACT inhalerIndicati ons:COPD with hypoxia (CMS/HCC) ([facility]) 5 Active ipratropium-alb uterol (Duo-Neb) 0.5-2.5 mg/3 mL nebulizer solutionIndicat ions:COPD with hypoxia (CMS/HCC) ([facility]) INHALE 1 AMPULE USING A NEBULIZER THREE [...] to complete this topic Insurance HSN FULL [facility] MEDICARE REPLACEMENT PPO
--- OUTSIDE RECORDS SUMMARY | 2025-04-28 08:02 | XMS_ITS | Encounter Summary ---
Author Organization [facility] Address [address] [place] [address] Care Team Providers Care Portfolio Management Marketing Name Role Phone Oren Roberson MD Primary Care Provider [phone] Encounter Details Date Type Department Care Team Description 03/16/2020 Refill Internal Medicine - [address], [address] [place] [address] Oren Roberson MD [address] [place] [address] Social History Tobacco Use Types Packs/Day Years [...] on filedocumented in this encounter Care Teams Portfolio Management Marketing Relationship Specialty Start Date End Date Oren Roberson MD PCP - General Internal Medicine 06/04/18 documented as of this encounter
--- OUTSIDE RECORDS SUMMARY | 2025-04-28 08:02 | XMS_ITS | Encounter Summary ---
Author Organization [facility] Address [address] [place] [address] Care Team Providers Care Content Production Specialist Name Role Phone Oren Roberson MD Primary Care Provider [phone] Reason for Visit * Reason Onset Date Comments Faxed Refill 09/02/2019 [facility] Encounter Details Date Type Department Care Team Description 09/02/2019 Refill Internal Medicine - [address], [address] [place] [address] Oren Roberson MD [address] [place] [address] Faxed Refill ([facility]) Social History Tobacco Use Types Packs/Day Years [...] N/A Patients current insurance carrier is: Payor: [employer] FFS / Plan: [employer] PLAN / Product Type: MEDICAID RISK documented in this encounter Plan of Treatment Not on file documented as of this encounter Visit Diagnoses Diagnosis Chronic obstructive pulmonary disease, unspecified COPD type (HCC) documented in this encounter Care Teams Content Production Specialist Relationship Specialty Start Date End Date Oren Roberson MD PCP - General Internal Medicine 06/04/18 documented as of this encounter
--- OUTSIDE RECORDS SUMMARY | 2025-04-28 08:02 | XMS_ITS | Encounter Summary ---
Author Organization [facility] Address [address] [place] [address] Care Team Providers Care Juice Weigher Name Role Phone Rosalind Hightower MD Primary Care Provider [facility] Oren Butler MD Primary Care Provider [phone] Encounter Details Date Type Department Care Team Description 12/13/2017 Orders Only Pulmonology - [address] [place] [phone] Cara Marcial NP Social History Tobacco Use [...] on filedocumented in this encounter Care Teams Juice Weigher Relationship Specialty Start Date End Date Rosalind Hightower MD PCP - General Internal Medicine 11/28/17 06/03/18 Oren Roberson MD PCP - General Internal Medicine 06/04/18 documented as of this encounter
--- OUTSIDE RECORDS SUMMARY | 2025-04-28 08:02 | XMS_ITS | Encounter Summary ---
Author Organization [facility] Address [address] [place] [address] Care Team Providers Care Scale Operator Name Role Phone Oren Roberson MD Primary Care Provider [phone] Reason for Visit * Reason Comments E-prescribe Rx Request Encounter Details Date Type Department Care Team Description 02/12/2021 Refill Internal Medicine - [address], [address] [place] [address] Oren Roberson MD [address] [place] [address] E-prescribe Rx Request Social History Tobacco Use [...] on filedocumented in this encounter Care Teams Scale Operator Relationship Specialty Start Date End Date Oren Roberson MD PCP - General Internal Medicine 06/04/18 documented as of this encounter
--- OUTSIDE RECORDS SUMMARY | 2025-04-28 08:02 | XMS_ITS | Encounter Summary ---
Author Organization [facility] Address [address] [place] [address] Care Team Providers Care Photo Printer Name Role Phone Oren Roberson MD Primary Care Provider [phone] Reason for Visit * Reason Onset Date Comments refill request 02/13/2019 Encounter Details Date Type Department Care Team Description 02/13/2019 Telephone Internal Medicine - [address], [address] [place] [address] Oren Roberson MD [address] [place] [address] refill request Social History Tobacco Use Types [...] N/A Patients current insurance carrier is: Payor: [employer] FFS / Plan: [employer] / Product Type: MEDICAID RISK documented in this encounter Plan of Treatment Not on file documented as of this encounter Visit Diagnoses Not on filedocumented in this encounter Care Teams Photo Printer Relationship Specialty Start Date End Date Oren Roberson MD PCP - General Internal Medicine 06/04/18 documented as of this encounter
--- OUTSIDE RECORDS SUMMARY | 2025-04-28 08:02 | XMS_ITS | Encounter Summary ---
Author Organization [facility] Address [address] [place] [address] Care Team Providers Care Die Designer Name Role Phone Oren Roberson MD Primary Care Provider [phone] Encounter Details Date Type Department Care Team Description 02/06/2021 Refill Internal Medicine - [address], [address] [place] [address] Oren Roberson MD [address] [place] [address] Social History Tobacco Use Types Packs/Day Years [...] - Incruse maren 62.5 mcg Preferred pharmacy: [facility] [address] [place] [address] Medication renewals requested in this message routed separately: Mometasone Furo-Formoterol Fum (DULERA ) 200-5 MCG/ACT Aerosol [GRAYSON ROA MD, MD] hydrochlorothiazide (HYDRODIURIL) 25 MG tablet [Da Lott MD] documented in this encounter Plan of Treatment Not on file documented as of this encounter Visit Diagnoses Not on filedocumented in this encounter Care Teams Die Designer Relationship Specialty Start Date End Date Oren Roberson MD PCP - General Internal Medicine 06/04/18 documented as of this encounter
--- OUTSIDE RECORDS SUMMARY | 2025-04-28 08:02 | XMS_ITS | Encounter Summary ---
Author Organization [facility] Address [address] [place] [address] Care Team Providers Care Test Deskman Name Role Phone Oren Roberson MD Primary Care Provider [phone] Reason for Visit * Reason Comments E-prescribe Rx Request Encounter Details Date Type Department Care Team Description 03/21/2019 Refill Pulmonology - [employer] [address] [facility] [address] [place] [address] Larry Myers MD [address] [place] [address] E-prescribe Rx Request Social History [...] NO Patients current insurance carrier is: Payor: [employer] FFS / Plan: [employer] [place] / Product Type: MEDICAID RISK documented in this encounter Plan of Treatment Not on file documented as of this encounter Visit Diagnoses Not on filedocumented in this encounter Care Teams Test Deskman Relationship Specialty Start Date End Date Oren Roberson MD PCP - General Internal Medicine 06/04/18 documented as of this encounter
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
--- OUTSIDE RECORDS SUMMARY | 2025-04-28 08:02 | XMS_ITS | Encounter Summary ---
Author Organization [facility] Address [address] [place] [address] Care Team Providers Care Semiconductor Wafers Etch Operator Name Role Phone Oren Roberson MD Primary Care Provider [phone] Reason for Visit * Reason Comments E-prescribe Rx Request Encounter Details Date Type Department Care Team Description 09/02/2019 Refill Pulmonology - [place] [address] [facility] [address] [place] [address] Larry Myers MD [address] [place] [address] E-prescribe Rx Request Social History [...] N/A Patients current insurance carrier is: Payor: [employer] FFS / Plan: [employer] PLAN / Product Type: MEDICAID RISK documented in this encounter Plan of Treatment Not on file documented as of this encounter Visit Diagnoses Diagnosis Chronic obstructive pulmonary disease, unspecified COPD type (HCC) documented in this encounter Care Teams Semiconductor Wafers Etch Operator Relationship Specialty Start Date End Date Oren Roberson MD PCP - General Internal Medicine 06/04/18 documented as of this encounter
--- OUTSIDE RECORDS SUMMARY | 2025-04-28 08:02 | XMS_ITS | Encounter Summary ---
Author Organization [facility] Address [address] [place] [address] Care Team Providers Care Concierge Receptionist Name Role Phone Rosalind Hightower MD Primary Care Provider [facility] Oren Butler MD Primary Care Provider [phone] Reason for Visit * Reason Onset Date Comments Faxed Refill 04/12/2018 Encounter Details Date Type Department Care Team Description 04/12/2018 Refill Pulmonology - [address] [place] [phone] Tru Tang MD Faxed Refill Social History [...] Does patient have an upcoming appointment? Yes [id number] (THE MEDICATION IS NOT ON THE MED LIST AND IS IDENTIFIED BELOW): {MED LIST:38106) Med name: PROAIR HFA AER Dosage: Not on form # of tablets: Local pharmacy with request for 90 -day supply Instructions: Inhale 1 puff by mouth 4 times daily as needed for sorness of breath or for wheezinf for up to 30 days. Did you check the pharmacy information above?: YES Patients current insurance carrier: Payor: [place] FFS / Plan: Ayi [employer] / Product Type: MEDICAID RISK documented in this encounter Plan of Treatment Not on file documented as of this encounter Visit Diagnoses Diagnosis Chronic obstructive pulmonary disease, unspecified COPD type (HCC) documented in this encounter Care Teams Concierge Receptionist Relationship Specialty Start Date End Date Rosalind Hightower MD PCP - General Internal Medicine 11/28/17 06/03/18 Oren Roberson MD PCP - General Internal Medicine 06/04/18 documented as of this encounter
--- OUTSIDE RECORDS SUMMARY | 2025-04-28 08:02 | XMS_ITS | Encounter Summary ---
Author Organization [facility] Address [address] [place] [address] Care Team Providers Care Film Writer Name Role Phone Oren Roberson MD Primary Care Provider [phone] Reason for Visit * Reason Onset Date Comments refill request 03/03/2020 Encounter Details Date Type Department Care Team Description 03/03/2020 Refill Pulmonology - [place] [address] [facility] [address] [place] [address] Larry Myers MD [address] [place] [phone] refill request Social History Tobacco Use Types [...] - 03/03/2020 11:54 AM EDT [facility] 03/18/2019 03/19/2020 30 day supply. documented in this encounter Plan of Treatment Not on file documented as of this encounter Visit Diagnoses Diagnosis Chronic obstructive pulmonary disease, unspecified COPD type (HCC) documented in this encounter Care Teams Film Writer Relationship Specialty Start Date End Date Oren Roberson MD PCP - General Internal Medicine 06/04/18 documented as of this encounter
--- OUTSIDE RECORDS SUMMARY | 2025-04-28 08:02 | XMS_ITS | Encounter Summary ---
Author Organization [facility] Address [address] [place] [address] Care Team Providers Care Queen Producer Name Role Phone Oren Roberson MD Primary Care Provider [phone] Reason for Visit * Reason Onset Date Comments Faxed Refill 08/06/2018 Encounter Details Date Type Department Care Team Description 08/06/2018 Refill Pulmonology - [address] [place] [address] Tru Tang MD Faxed Refill [...] Patients current insurance carrier is: Payor: [employer] FFS / Plan: VLADIMIR LARKIN / Product Type: MEDICAID RISK documented in this encounter Plan of Treatment Not on file documented as of this encounter Visit Diagnoses Diagnosis Chronic obstructive pulmonary disease, unspecified COPD type (HCC) documented in this encounter Care Teams Queen Producer Relationship Specialty Start Date End Date Oren Roberson MD PCP - General Internal Medicine 06/04/18 documented as of this encounter
--- OUTSIDE RECORDS SUMMARY | 2025-04-28 08:02 | XMS_ITS | Clinical Summary ---
Author Organization [facility] Address [address] [place] [address] Care Team Providers Care General Practitioner Name Role Phone Oren Roberson MD Primary Care Provider [phone] Allergies Active Allergy Reactions Severity Noted Date [...] 019 INFLUENZA (#1) 2025 04/23/2018 Care Teams General Practitioner Relationship Specialty Start Date End Date Oren Roberson MD PCP - General Internal Medicine 06/04/18
[2025-04-28] MEDS: Lidocaine HCl 2 % MPF 5 ML VIAL 10 ML SUBCUT (15:54)
== END 2025-04-28 07:59 | disposition home or self-care (01) ==
LOC: HO.MAMMO 07:58
PROVIDERS: PCP Nurse Practitioner Family; Visit Provider Surgery
DX: R92.8 Other abnormal and inconclusive findings on diagnostic imaging of breast (principal)
CPT/HCPCS: 19000; 19001; 19081; 19083; 88305; 88341; 88342; 88360; 88377; A4648; J2003

== ENCOUNTER → 2025-04-28 10:00 | Outpatient (BNV) | payer MEDICARE, MEDICAID, SELFPAY | PROVIDERS: PCP Nurse Practitioner Family; Visit Provider Radiology Body Imaging | DX: N63.25 Unspecified lump in the left breast, overlapping quadrants (principal) | CPT/HCPCS: 19000; 19001; 19081; 19083 ==

== ENCOUNTER 2025-05-06 14:58 | Outpatient (AMB) | payer MEDICARE, MEDICAID, SELFPAY ==
--- NOTE | 2025-05-06 14:59 | MHC.OFFVIS ---
Vital Signs 05/06/25 15:04 Height 5 ft 4 in Weight 154 lb 5.177 oz BMI 26.5 Intake Visit Reasons: follow up brst US Bx Intake Note: Patient is seen in office for ultrasound biopsy RESULTS left breast 1,2,3 o'clock mass, possible aspiration. Pt c/o: here for results Food And Beverage Cashier Required: No Accompanied by: Self / Same As Patient Allergies codeine Allergy (Verified 05/06/25 15:04) Unknown Medication List - Last Reconciled 05/06/25 by Ovidio Colon MD albuterol sulfate 90 mcg/actuation (Ventolin HFA) 2 puffs inhalation RQ4H PRN aspirin 81 mg PO DAILY atorvastatin (Lipitor) 80 mg PO BEDTIME furosemide 20 mg PO DAILY ipratropium-albuterol 0.5 mg-3 mg(2.5 mg base)/3 mL 3 mL inhalation TID 90 days metoprolol tartrate 12.5 mg (1/2 x 25 mg) PO BID mometasone-formoterol 100-5 mcg/actuation (Dulera) 2 puffs inhalation BID nystatin 5 mL PO BID omeprazole 20 mg PO DAILY sertraline 75 mg (1.5 x 50 mg) PO DAILY 90 days umeclidinium 62.5 mcg/actuation (Incruse Ellipta) 1 inh inhalation DAILY valsartan 20 mg (1/2 x 40 mg) PO BID HPI Comments Details: 64-year-old female patient presenting with an abnormal screening mammogram performed on 03/11/2025. Subsequent additional mammogram images and ultrasound performed on 04/16/2025 revealed a solid irregular mass in the 3 o'clock position, asymmetry with the associated amorphous calcifications just superior and posterior to the solid irregular mass at the 03:00 location seen only on MLO view, and a complicated cyst at the 01:00 and 12:00 location by ultrasound. She underwent an ultrasound-guided core biopsy of the solid irregular mass at the 03:00 location, ultrasound-guided cyst aspiration or possible biopsy of the complicated cyst in the 01:00 and 12:00 location as well as an attempted stereotactic guided core biopsy of the solid irregular mass also at the 03:00 location at the [facility] on 04/28/2025. She returns today to review the pathology results. The stereotactic guided core biopsy was unable to be performed. Two cysts were drained and the solid mass revealed invasive ductal carcinoma grade 3, ER/NJ negative, HER2 Sera equivocal (FISH pending), Ki-67 high. I reviewed the pathology results with the patient and her friend. She denies a previous history of breast problems or breast surgery. Her family history is significant for a maternal grandmother with breast cancer at an older age. She denies any family history of ovarian cancer. Her past history is significant for stress-induced cardiomyopathy (takotsubo cardiomyopathy) following a traumatic event in August. She lost her after 7 weeks of hospitalization. She still requires oxygen when ambulating. [facility] Medical History Non-ST elevation [place] (NSTEMI) Multifocal pneumonia No pertinent family history High cholesterol HTN (hypertension) Hx of mammogram (~2019) COPD exacerbation Urinary tract infection Surgical History History of cardiac cath Hx of colonoscopy (~2014) Social History Household Members: Significant Other Both parents involved: No Caregiver staying overnight: No Housing: House Are you a primary hearing healthcare practitioner to a significant other at home: No Do you presently have visiting nurse or other home services: No 75 years or older and lives alone: No Alcohol intake: current Alcohol intake frequency: a few times a week Patient Tobacco Use Status: Former Tobacco user e-Cigarette/Vaping Use: Never Used Second Hand Smoke Exposure: No service: No Cognitive needs: No Hearing needs: No Vision needs: Yes (wear glasses) Female Reproductive History Menstrual Age of Menarche: 10 Review of Systems Const All systems reviewed & are unremarkable except as noted in HPI and below Card Reports dyspnea Resp Denies cough, Denies hemoptysis, Reports dyspnea and Denies wheezing Denies nipple discharge Skin/Breast Denies breast skin changes, Denies breast pain, Denies breast mass and Denies nipple discharge Aller/Immun Denies wheezing Physical Exam Exam Exam: Exam deferred Vital Signs: BMI result Body Mass Index 26.5 Assessment & Plan Assessment & Plan (1) Invasive ductal carcinoma of right breast: Code(s): C50.911 - Malignant neoplasm of unspecified site of right female breast Category: Medical Plan I reviewed the pathology results in detail with the patient which revealed a high-grade tumor with ER/NJ negative and HER2 Sera equivocal (fish pending). Lesion appears amenable to lumpectomy although because of the multiple lesions and negative estrogen receptor and progesterone status, I recommended evaluation by Medical Oncology prior to surgery to see if she is a candidate for neoadjuvant chemotherapy. She expressed understanding and agrees with the plan. Further surgical intervention will be based on medical Oncology recommendations. Orders: Referrals Hematology & Oncology Referral C50.911 - Malignant neoplasm of unspecified site of right female breast Coding Level of Care Code Est Pt Level 4 (19643) Diagnoses Invasive ductal carcinoma of right breast C50.911
[2025-05-06 15:04] VITALS: BMI 26.5
--- OUTSIDE RECORDS SUMMARY | 2025-05-06 16:40 | XMS_ITS | Clinical Summary ---
Author Organization [employer] Address [address] [place] [address] Care Team Providers Care Auto Body Repair Teacher Name Role Phone Unavailable Primary Care Provider Unavailabl e Medications Umeclidinium [place] (Incruse Ellipta) 62.5 MCG/ACT aerosol powderIndicatio ns:COPD with hypoxia (CMS/HCC) ([facility]) Inhale 1 Act (62.5 mcg) Once per day. 30 each 5 Active Dulera 100-5 MCG/ACT inhalerIndicati ons:COPD with hypoxia (CMS/HCC) ([facility]) 5 Active ipratropium-alb uterol (Duo-Neb) 0.5-2.5 mg/3 mL nebulizer solutionIndicat ions:COPD with hypoxia (CMS/HCC) ([facility]) INHALE 1 AMPULE USING [...] to complete this topic Insurance HSN FULL [facility] MEDICARE REPLACEMENT PPO
== END 2025-05-06 15:37 | disposition home or self-care (01) ==
LOC: HO.HGS 14:58
PROVIDERS: PCP Nurse Practitioner Family; Visit Provider Surgery
DX: C50.911 Malignant neoplasm of unspecified site of right female breast (principal)
CPT/HCPCS: 99214

== ENCOUNTER → 2025-05-06 14:58 | Outpatient (BNVA) | payer MEDICARE, MEDICAID, SELFPAY | PROVIDERS: PCP Nurse Practitioner Family; Visit Provider Surgery | DX: C50.911 Malignant neoplasm of unspecified site of right female breast (principal); Z17.1 Estrogen receptor negative status [ER-]; Z80.3 Family history of malignant neoplasm of breast | CPT/HCPCS: 99212 ==

== ENCOUNTER → 2025-05-12 15:02 | Outpatient (BNV) | payer MEDICARE, MEDICAID, SELFPAY | PROVIDERS: Visit Provider Internal Medicine | DX: C50.812 Malignant neoplasm of overlapping sites of left female breast (principal); R74.01 Elevation of levels of liver transaminase levels; Z17.1 Estrogen receptor negative status [ER-] | CPT/HCPCS: 99215; G2211 ==

== ENCOUNTER 2025-05-20 13:15 | Outpatient (AMB) | payer MEDICARE, MEDICAID, SELFPAY ==
[2025-05-20 13:16] VITALS: BP 112/56; PULSE 76; BMI 27.2
--- NOTE | 2025-05-20 13:16 | A.OFFVIS_ITS ---
Vital Signs 05/20/25 13:16 Height 5 ft 4 in Weight 158 lb 11.725 oz BMI 27.2 BP 112/56 L Blood Pressure Location Lt brachial Pulse 76 Pulse Source Pulse Oximeter Intake Visit Reasons: 6 mth s/p echo Multimedia Programmer Required: No Accompanied by: Daughter Allergies codeine Allergy (Verified 05/20/25 13:21) Unknown Medication List - Last Reconciled 05/20/25 by Aris Aburto NP albuterol sulfate 90 mcg/actuation (Ventolin HFA) 2 puffs inhalation RQ4H PRN aspirin 81 mg PO DAILY atorvastatin (Lipitor) 20 mg PO BEDTIME furosemide 20 mg PO DAILY ipratropium-albuterol 0.5 mg-3 mg(2.5 mg base)/3 mL 3 mL inhalation TID 90 days metoprolol tartrate 12.5 mg (1/2 x 25 mg) PO BID mometasone-formoterol 100-5 mcg/actuation (Dulera) 2 puffs inhalation BID omeprazole 20 mg PO DAILY sertraline 75 mg (1.5 x 50 mg) PO DAILY 90 days umeclidinium 62.5 mcg/actuation (Incruse Ellipta) 1 inh inhalation DAILY valsartan 20 mg (1/2 x 40 mg) PO BID HPI Comments Details: This is a 64-year-old female patient coming in for a follow-up visit, accompanied by her daughter. Patient with a history of COPD on continuous 2 L via nasal cannula who was in the hospital back in August for RSV pneumonia during which patient had NSTEMI and was treated with IV heparin aspirin atorvastatin metoprolol and was noted to also developed takotsubo cardiomyopathy when was started on Lasix and valsartan. Patient underwent outpatient cardiac catheterization that showed no significant coronary artery disease. During hospital stay, patient was also noted to an episode of AFib for which patient was started on Eliquis however could not continue this due to developing hemoptysis. Patient has since then undergone Holter study with no recurrence of AFib. Patient recently underwent an echocardiogram that showed normal EF with regional wall motion abnormalities and thereby underwent a cardiac MRI. Today, patient is reporting feeling well overall without any cardiac symptoms of exertional chest pain, shortness of breath, palpitations, dizziness orthopnea, PND, leg edema, presyncope or syncope. Patient is a little upset today as she states that she was recently diagnosed with breast cancer and is planning to undergo chemotherapy with Dr. Francis. Patient is reporting compliance with all her medications. [facility] Medical History Non-ST elevation [place] (NSTEMI) Multifocal pneumonia No pertinent family history High cholesterol HTN (hypertension) Hx of mammogram (~2019) COPD exacerbation Urinary tract infection Surgical History History of cardiac cath Hx of colonoscopy (~2014) Social History Household Members: Friend(s) Both parents involved: No Caregiver staying overnight: No Housing: House Are you a primary hospice spiritual care coordinator to a significant other at home: No Do you presently have visiting nurse or other home services: No 75 years or older and lives alone: No Alcohol intake: current Alcohol intake frequency: a few times a week Patient Tobacco Use Status: Former Tobacco user Tobacco use type: Cigarette e-Cigarette/Vaping Use: Never Used Second Hand Smoke Exposure: No Current occupational status: retired and disabled Cognitive needs: No Hearing needs: No Vision needs: Yes (wear glasses) Female Reproductive History Menstrual Age of Menarche: 10 Review of Systems Const Denies daytime sleepiness, Denies difficulty sleeping, Denies snoring, Denies stops breathing during sleep and Denies weakness Card Denies chest pain, Denies rapid heart rate, Denies irregular heart rhythm, Denies claudication, Denies leg edema, Denies lightheadedness, Denies palpitations, Denies dyspnea, Denies dyspnea on exertion, Denies orthopnea, Denies paroxysmal nocturnal dyspnea and Denies slow heart rate Resp Denies cough, Denies dyspnea, Denies dyspnea on exertion and Denies snoring GI Reports no additional complaints, Denies hematochezia, Denies change in stool character and Denies dyspepsia Musc Denies abnormal gait, Denies muscle weakness and Denies numbness Neuro Denies abnormal gait, Denies numbness and Denies weakness Endo Denies palpitations Physical Exam Vital Signs: Last Vital Signs Pulse 76 05/20/25 13:16 BP 112/56 L 05/20/25 13:16 BMI result Body Mass Index 27.2 Assessment & Plan Assessment & Plan (1) Takotsubo cardiomyopathy: Code(s): I51.81 - Takotsubo syndrome Category: Medical Plan: Patient was in the hospital in August for RSV pneumonia during which time patient had NSTEMI and takotsubo cardiomyopathy. Patient's EF improved prior to discharge and was scheduled for a outpatient cardiac catheterization. 10/22/2024 patient underwent a cardiac catheterization at [facility] with Dr. Ho that showed no significant coronary artery disease. We repeated an echo on 02/21/2025 that showed a normal LV systolic function with an ejection fraction between 60-65% however patient still had wall motion abnormalities showing akinetic basal inferior and basal inferolateral segments as well as hypokinetic inferoseptal. Given this unimproved wall motion abnormality, patient underwent a cardiac MRI on 05/05/2025 that showed normal LV systolic function with no wall motion abnormalities. Given this finding, no further indication for testing at this time. With no evidence of cardiomyopathy, from cardiac standpoint patient is appropriate to initiate chemotherapy. Would recommend close cardiac surveillance during the course of therapy. Continue metoprolol and valsartan therapy. Blood pressure is well-controlled. Patient is planning to undergo chemotherapy for her bilateral breast cancer. Advised on heart healthy diet, low-salt diet, daily weight monitoring, and management of vascular risk factors. (2) NSTEMI (non-ST elevated myocardial infarction): Code(s): I21.4 - Non-ST elevation (NSTEMI) myocardial infarction Category: Medical Plan: As above. (3) Status post cardiac catheterization: Code(s): Z98.890 - Other specified postprocedural states Category: Surgical Plan: As above. (4) Afib: Code(s): I48.91 - Unspecified atrial fibrillation Plan: Had an episode of AFib while in the hospital where patient was started on Eliquis therapy however was discontinued due to hemoptysis. No recurrence since. Holter on 10/03/2024 showed underlying sinus rhythm with rare PACs and PVCs. Patient also recently underwent sleep study that showed no sleep apnea. Advised on heart healthy diet, regular exercise, med compliance, and management of vascular risk factors. Follow up in 1 year, sooner if needed. In the interim, patient will call the office with a concerns or change in symptoms. This note was generated using voice recognition software. While every effort has been made to ensure accuracy and proper financial sales advisor, there may be occasional errors that could affect the content or meaning of the described symptoms. Medications: Discontinued aspirin Discontinued Reason: Doctor's Order 81 mg PO DAILY 30 tabs 0RF furosemide Discontinued Reason: Doctor's Order 20 mg PO DAILY 90 tabs 1RF Coding Level of Care Code Est Pt Level 4 (37490) Complex visit Add On G2211 Diagnoses Takotsubo cardiomyopathy I51.81 NSTEMI (non-ST elevated myocardial infarction) I21.4 Status post cardiac catheterization Z98.890 Afib I48.91 Time Spent (min) 33 Comment Time spent in reviewing the chart, test results, assessment, counseling and documentation.
--- OUTSIDE RECORDS SUMMARY | 2025-05-20 17:04 | XMS_ITS | Clinical Summary ---
Author Organization [employer] Address [address] [place] [address] Care Team Providers Care Sleeve Setter Name Role Phone Unavailable Primary Care Provider Unavailabl e Medications Umeclidinium [place] (Incruse Ellipta) 62.5 MCG/ACT aerosol powderIndicatio ns:COPD with hypoxia (CMS/HCC) ([facility]) Inhale 1 Act (62.5 mcg) Once per day. 30 each 5 Active Dulera 100-5 MCG/ACT inhalerIndicati ons:COPD with hypoxia (CMS/HCC) ([facility]) 5 Active ipratropium-alb uterol (Duo-Neb) 0.5-2.5 mg/3 mL nebulizer solutionIndicat ions:COPD with hypoxia (CMS/HCC) ([facility]) INHALE 1 AMPULE USING A NEBULIZER [...] of 2 - PCV) 1977 Mammogram 1998 RSV Patients and Pa tients Aged 60 years or older (1 - Risk 50-74 years 1-dose series) 2008 Zoster Vaccines (1 of 2) 2008 COVID-19 Vaccine (1 - 2024-2 6 season) 2025 Influenza Vaccine (#1) 2025 04/23/2018 [...] complete this topic Insurance HSN FULL [facility] MEDICARE REPLACEMENT PPO
== END 2025-05-20 14:04 | disposition home or self-care (01) ==
LOC: HO.HCS 13:16
DX: I51.81 Takotsubo syndrome (principal); I21.4 Non-ST elevation (NSTEMI) myocardial infarction; Z98.890 Other specified postprocedural states; I48.91 Unspecified atrial fibrillation
CPT/HCPCS: 99214; G2211

== ENCOUNTER → 2025-05-20 13:15 | Outpatient (BNVA) | payer MEDICARE, MEDICAID, SELFPAY | DX: I51.81 Takotsubo syndrome (principal); I21.4 Non-ST elevation (NSTEMI) myocardial infarction; I48.91 Unspecified atrial fibrillation; J44.9 Chronic obstructive pulmonary disease, unspecified; C50.911 Malignant neoplasm of unspecified site of right female breast; C50.912 Malignant neoplasm of unspecified site of left female breast; I10 Essential (primary) hypertension; Z98.890 Other specified postprocedural states; Z79.899 Other long term (current) drug therapy; Z87.891 Personal history of nicotine dependence | CPT/HCPCS: 99212 ==

== ENCOUNTER 2025-05-26 14:42 | Outpatient (REF) | payer MEDICARE, MEDICAID, SELFPAY ==
--- NOTE | ~2025-05-26 | MR_ITS ---
EXAMINATION: MR BREAST WITHOUT AND WITH CONTRAST, BILATERAL CLINICAL INFORMATION: Recently diagnosed left breast triple negative breast cancer. Here for presurgical evaluation. COMPARISON: Comparison is made with relevant prior imaging. TECHNIQUE: MR imaging of the breast was performed using T1, T2 and fat saturated techniques. Dynamic multiphase imaging was also performed after the administration of intravenous gadolinium contrast agent. Computer generated 3D reconstruction and enhancement kinetic analysis was ulitized by the radiologist in the interpretation of this examination. FINDINGS: Breast composition: Heterogeneous fibroglandular breast tissue Background parenchymal enhancement: Moderate LEFT BREAST: Irregular enhancing mass at 3:00 in the left breast series 1044 image 80/140 measuring approximately 16 x 14 mm anterior to posterior by transverse. At 1:00 to 3 cm from the nipple series 1044 image 69/140 there is a rim-enhancing mass which demonstrates progressive type I kinetics measuring approximately 8 x 7 mm. While this could represent an inflammatory cyst the enhancing rim is thick and appears similar to the other biopsy-proven malignancy. Question prominent left axillary lymph nodes. No internal mammary adenopathy. RIGHT BREAST: T2 hyperintense oval mass with a thin mammogram and enhancement at 9:00 series 1044 image 90/140 measuring approximately 9 x 5 mm. This likely represents an inflammatory cyst however follow-up is recommended. No other suspicious enhancing masses or areas of non mass enhancement. No axillary or internal mammary adenopathy. Limited views of the chest and abdomen are unremarkable. MR/MR breast BI wo/w con IMPRESSION: Left: 1. Biopsy-proven malignancy at 3:00 measuring up to 16 mm. Patient is under the care of a breast surgeon for excision and further management. 2. Thick rim-enhancing mass at 1:00 3 cm from the nipple with similar morphology to the above malignant mass however findings are typical for an inflammatory cyst as well. Recommend ultrasound evaluation at this time if no ultrasound correlate MRI guided core needle biopsy is recommended for confirmation. 3. Question prominent axillary lymph nodes. Ultrasound evaluation at this time is recommended for confirmation. Right: T2 hyperintense oval mass at 9:00 with a thin rim of enhancement likely a inflammatory cyst. Recommend ultrasound evaluation at this time if no ultrasound correlate 6 month follow-up MRI is recommended for further evaluation. ASSESSMENT: LEFT BREAST: BI-RADS 4-Suspicious RIGHT BREAST: BI-RADS 3-Probably Benign RECOMMENDATIONS: Bilateral breast ultrasound evaluation at this time. If no ultrasound correlate MRI guided core needle biopsy of the left breast is recommended. 6 month follow-up MRI is recommended for right breast Electronically signed by: Yolie Jordan DO 05/27/2025 05:46 PM [facility]
--- OUTSIDE RECORDS SUMMARY | 2025-05-26 18:00 | XMS_ITS | Clinical Summary ---
Author Organization [email or web address] Address [address] [place] [address] Care Team Providers Care Home Paraprofessional Name Role Phone Unavailable Primary Care Provider Unavailabl e Medications Umeclidinium [place] (Incruse Ellipta) 62.5 MCG/ACT aerosol powderIndicatio ns:COPD with hypoxia (CMS/HCC) ([facility]) Inhale 1 Act (62.5 mcg) Once per day. 30 each 5 Active Dulera 100-5 MCG/ACT inhalerIndicati ons:COPD with hypoxia (CMS/HCC) ([facility]) 5 Active ipratropium-alb uterol (Duo-Neb) 0.5-2.5 mg/3 mL nebulizer solutionIndicat ions:COPD with hypoxia (CMS/HCC) ([facility]) INHALE 1 AMPULE USING A [...] this topic Insurance HSN FULL [facility] MEDICARE REPLACEMENT PPO
== END 2025-05-26 14:43 | disposition home or self-care (01) ==
LOC: HO.MRI 14:42
PROVIDERS: Visit Provider Internal Medicine
DX: C50.911 Malignant neoplasm of unspecified site of right female breast (principal); C50.912 Malignant neoplasm of unspecified site of left female breast
CPT/HCPCS: 77049; A9585

== ENCOUNTER → 2025-05-26 14:42 | Outpatient (BNV) | payer MEDICARE, MEDICAID, SELFPAY | PROVIDERS: Visit Provider Internal Medicine | DX: C50.812 Malignant neoplasm of overlapping sites of left female breast (principal); N63.15 Unspecified lump in the right breast, overlapping quadrants | CPT/HCPCS: 77049 ==

== ENCOUNTER 2025-06-02 08:54 | Outpatient (REF) | payer MEDICARE, MEDICAID, SELFPAY ==
--- NOTE | 2025-05-29 10:28 | MHC.HEMONCMA ---
clvm asking pt to call back to reschedule 05/30 appt for 1 week out due to US being 06/02.
--- NOTE | ~2025-06-02 | US_ITS ---
EXAMINATION: US DIAGNOSTIC ULTRASOUND BREAST, BILATERAL CLINICAL INFORMATION: -Follow-up abnormal findings on MRI. -Ultrasound-guided needle core biopsy on April 28, 2025 of solid mass at 3 o'clock position 6 cm from the nipple (associated with butterfly shape clip) showed invasive ductal carcinoma. -Breast MRI on May 26, 2025 describes: --Right breast at 9:00 measuring approximately 9 x 5 mm. MR directed ultrasound was recommended. If no ultrasound correlate, a six month follow-up MRI was recommended. --Left breast biopsy-proven malignancy at 3 o'clock position --Left breast at 10:00-12:00 at 3 cm from the nipple in the upper inner quadrant, approximately 8 x 7 mm rim-enhancing mass. MR directed ultrasound was recommended. If no ultrasound correlate, MR guided needle core biopsy recommended. COMPARISON: Diagnostic mammogram/ultrasound workup on April 14, 2025. Ultrasound-guided procedure on April 28, 2025. Breast MRI on May 26, 2025. FINDINGS: Right breast: Targeted ultrasound of the right breast was performed at the location of the MR finding. The survey shows a 0.8 x 0.5 x 0.4 cm probable septated cyst or cluster of cysts at 9 o'clock position at 5 cm from the nipple. No definite internal vascularity demonstrated with color Doppler evaluation. This likely correlates with the MR finding. Left breast: Targeted ultrasound of the left breast was performed at the location of the MR finding. The survey shows three adjacent cysts at 12 o'clock position 3 cm from the nipple. Two of the largest cysts measures 0.6 x 0.3 cm and 0.6 x 0.3 cm, which could represent the deflated cysts that have been aspirated on April 28, 2025. However, it is difficult to be sure if one of them could correlates with the MR finding with thick enhancing wall. US/US Breast BI Limited Mamm Only IMPRESSION: Right breast: 0.8 x 0.5 x 0.4 cm probable septated cyst or cluster for cysts at 9 o'clock position 5 cm from the nipple. This finding likely correlates with the MR finding described along the 9:00 axis. Probably benign. A 6-month follow-up ultrasound is recommended. Left breast: No definite sonographic correlate for the MR finding with thick enhancing wall located between 10:00-12:00. Per previous MR report, an MR guided needle core biopsy is recommended. Results are provided to the patient at time of visit by the technologist. ASSESSMENT: Category 6: Known Biopsy-Proven Malignancy RECOMMENDATION: Biopsy recommended This patient's information was entered into a reminder system with a target due date for their next mammogram. Electronically signed by: Leanne Novak MD 06/02/2025 12:30 PM [facility]
== END 2025-06-02 08:55 | disposition home or self-care (01) ==
LOC: HO.MAMMO 08:54
PROVIDERS: PCP Nurse Practitioner Family; Visit Provider Internal Medicine
DX: C50.812 Malignant neoplasm of overlapping sites of left female breast (principal)
CPT/HCPCS: 76642

== ENCOUNTER → 2025-06-02 09:00 | Outpatient (BNV) | payer MEDICARE, MEDICAID, SELFPAY | PROVIDERS: PCP Nurse Practitioner Family; Visit Provider Radiology Body Imaging | DX: C50.912 Malignant neoplasm of unspecified site of left female breast (principal) | CPT/HCPCS: 76642 ==

== ENCOUNTER 2025-06-10 09:21 | Outpatient (REF) | payer MEDICARE, MEDICAID, SELFPAY ==
[2025-06-10 09:53] LABS: Alanine Aminotransferase 19 U/L (0-31); Albumin Level 4.5 g/dL (3.5-5.0); Alkaline Phosphatase 113 U/L (39-117); Aspartate Amino Transferase 23 U/L (5-31); Total Protein 6.8 g/dL (6.5-8.0)
--- OUTSIDE RECORDS SUMMARY | 2025-06-10 10:48 | XMS_ITS | Encounter Summary ---
Author Organization [facility] Prior to 04/26/2024 Address [address] [place] [address] Care Team Providers Care Sexual Assault Counselor Name Role Phone Oren Roberson MD Primary Care Provider [phone] Encounter Details Date Type Department Care Team Description 02/06/2021 Refill Pulmonology - [place] [address] [place] [address] Larry Myers MD [address] [place] [address] Social History Tobacco Use Types [...] (HCC) documented in this encounter Care Teams Sexual Assault Counselor Relationship Specialty Start Date End Date Oren Roberson MD PCP - General Internal Medicine 06/04/18 documented as of this encounter
--- OUTSIDE RECORDS SUMMARY | 2025-06-10 10:48 | XMS_ITS | Encounter Summary ---
Author Organization [facility] Prior to 04/26/2024 Address [address] [place] [address] Care Team Providers Care Operations Research Director Name Role Phone Oren Roberson MD Primary Care Provider [phone] Reason for Visit * Reason Onset Date Comments Urinary Frequency/Urgency/Burning 04/25/2019 Encounter Details Date Type Department Care Team Description 04/25/2019 Telephone Internal Medicine - [address], [address] [place] [address] Oren Roberson MD [address] [place] [address] Urinary Frequency/Urgency/Burni ng Social History Tobacco Use Types Packs/Day Years Used Date Smoking Tobacco: Former Cigarettes 1 40 Q uit: 06/05/2015 Smokeless Tobacco: Never Alcohol Use Standard Drinks/Week Comments Yes 12 (1 standard drink = 0.6 oz pu re alcohol) weekly Sex Assigned at Date Recorded Not on file documented as of this encounter Miscellaneous Notes * Telephone Encounter - Viri Maxwell - 04/25/2019 8:37 AM EDT Patient called RE: appt today//?UTI - woke up this am - burning sensation with urination. No PA in our office and no available time with Dr. Roberson-[facility] Her response was she did not have time to go their. 2nd suggestion was to go to Urgent care - [facility]. documented in this encounter Plan of Treatment Not on file documented as of this encounter Visit Diagnoses Not on filedocumented in this encounter Care Teams Operations Research Director Relationship Specialty Start Date End Date Oren Roberson MD PCP - General Internal Medicine 06/04/18 documented as of this encounter
--- OUTSIDE RECORDS SUMMARY | 2025-06-10 10:48 | XMS_ITS | Encounter Summary ---
Author Organization [facility] Address [address] [place] [address] [place] [address] Phone Care Team Providers Care Senior Manager Mmcoe Name Role Phone Jonna Long NP Primary Care Provider Referring, Not Required Unavailable Unavaila Angélica Oates MD Unavailable [phone] Mirza Velazquez MD Unavailable [phone] Encounter Details Date Type Department Care Team (Late st Contact Info) Description 06/06/2025 Ancillary Orders DF IMG OUTSIDE IMG [address] [place] [address] Angélica Vance MD [address] [place] [address]#[address] [place] [address] [email or web address] Social History Tobacco Use Types Packs/Day Years Used Date Smoking Tobacco: Never Assessed Education Answer Date Recorded Are you interested in more education? Not on tho e 06/05/2025 Are you concerned about learning? Not on file 06/05/2025 No 06/05/2025 No 06/05/2025 Digital Access Answer Date Recorded No 06/05/2025 No 06/05/2025 Reliable internet access at home? Not on file 06/05/2025 Device with a working camera? Not on file Comments Unknown Sex and Gender Information Value Date Recorded Sex Assigned at Female 06/04/2025 4:31 PM EST Legal Sex Female 9:50 PM EDT Gender Identity Female 06/04/2025 4:31 PM EST Sexual Orientation Straight 06/04/2025 4: 31 PM EST documented as of this encounter Plan of Treatment Upcoming Encounters Date Type Department Care Team (Late st Contact Info) Description 06/16/2025 2:15 PM EST Administrative Encounter Central Registration, [facility] 300 [facility] 3rd [place] [address] Angélica Vance MD [address] [place] [address]#[address] [place] [address] [email or web address] 06/16/2025 3:00 PM EST Office Visit [facility], [facility], [facility] 300 [facility] [address] [place] [address] Angélica Vance MD [address] [place] [address]#12[address] [place] [address] [email or web address] 07/11/2025 1:00 PM EST Office Visit [facility], [facility], [address], 9th [place] [address] Mirza Velazquez MD [address] [place] [address] [email or web address] documented as of this encounter Results * CT Abdomen/Pelvis Outside (No Interpretation) (09/19/2024 12:00 AM EDT) Narrative MERYL_[facility] - 06/06/2025 10:59 AM EST This study is for PACS storage only and not for interpretation. us Angélica Vance MD IMG OUTSIDE IMAGING W/OUT INTE RPRETATION Final Result PER[facility] documented in this encounter Visit Diagnoses Not on filedocumented in this encounter Care Teams Senior Manager Mmcoe Relationship Specialty Start Date End Date Jonna Long NP [address] [place] [address] [email or web address] PCP - General 06/04/25 Referring, Not Required Referring Physician 06/04/25 Angélica Vance MD 450 [facility] Cancer [facility]#1250 [place] [address] [email or web address] Medical Oncology 06/05/25 Mirza Velazquez MD [address] [place] [address] [email or web address] Surgical Oncology 06/05/25 documented as of this encounter Additional Source Comments The information contained in this document represents components of the legal health record. It is not the complete legal health record.[facility]
--- OUTSIDE RECORDS SUMMARY | 2025-06-10 10:48 | XMS_ITS | Encounter Summary ---
Author Organization [facility] Address [address] [place] [address] [place] [address] Phone Care Team Providers Care Manager Educational Name Role Phone Jonna Long NP Primary Care Provider Referring, Not Required Unavailable Unavaila Angélica Oates MD Unavailable [phone] Mirza Velazquez MD Unavailable [phone] Encounter Details Date Type Department Care Team (Late st Contact Info) Description 06/06/2025 Ancillary Orders DF IMG OUTSIDE IMG [address] [place] [address] Angélica Vance MD [address] [place] [address]#65[address] [place] [address] [email or web address] Social History Tobacco Use Types Packs/Day [...] 2:15 PM EST Administrative Encounter Central Registration, [facility] 300 [facility] 3[address] [place] [address] Angélica Vance MD [address] [place] [address]#[address] [place] [address] [email or web address] 06/16/2025 3:00 PM EST Office Visit [facility], [facility], [facility] 300 [facility] [address] [place] [address] Angélica Vance MD [address] [place] [address]#[address] [place] [address] [email or web address] 07/11/2025 1:00 PM EST Office Visit [facility], [facility], [address], 9th [place] [address] Mirza Velazquez MD [address] [place] [address] [email or web address] documented as of this encounter Results * XR Chest Outside (No Interpretation) (09/12/2024 12:00 AM EDT) Narrative [facility] - 06/06/2025 11:02 AM EST This study is for PACS storage only and not for interpretation. us Angélica Vance MD IMG OUTSIDE IMAGING W/OUT INTE RPRETATION Final Result [facility] documented in this encounter Visit Diagnoses Not on filedocumented in this encounter Care Teams Manager Educational Relationship Specialty Start Date End Date Jonna Long NP [address] [place] [address] [email or web address] PCP - General 06/04/25 Referring, Not Required Referring Physician 06/04/25 Angélica Vance MD [address] [place] [address] Cancer [facility] [place] [address] [email or web address] Medical Oncology 06/05/25 Mirza Velazquez MD [address] [place] [address] [email or web address] Surgical Oncology 06/05/25 documented as of this encounter Additional Source Comments The information contained in this document represents components of the legal health record. It is not the complete legal health record.[facility]
--- OUTSIDE RECORDS SUMMARY | 2025-06-10 10:48 | XMS_ITS | Encounter Summary ---
Author Organization [facility] Prior to 04/26/2024 Address [address] [place] [address] Care Team Providers Care Platform Worker Name Role Phone Oren Roberson MD Primary Care Provider [phone] Reason for Visit * Reason Comments E-prescribe Rx Request Encounter Details Date Type Department Care Team Description 03/21/2019 Refill Pulmonology - [place] [address] [facility] [address] [place] [address] Larry Myers MD [address] [place] [address] E-prescribe Rx Request Social History [...] NO Patients current insurance carrier is: Payor: beModel FFS / Plan: Social Median [place] / Product Type: MEDICAID RISK documented in this encounter Plan of Treatment Not on file documented as of this encounter Visit Diagnoses Not on filedocumented in this encounter Care Teams Platform Worker Relationship Specialty Start Date End Date Oren Roberson MD PCP - General Internal Medicine 06/04/18 documented as of this encounter
--- OUTSIDE RECORDS SUMMARY | 2025-06-10 10:48 | XMS_ITS | Encounter Summary ---
Author Organization [facility] Address [address] [place] [address] [place] [address] Phone Care Team Providers Care Cook Starch Name Role Phone Jonna Long NP Primary Care Provider Referring, Not Required Unavailable Unavaila Angélica Oates MD Unavailable [phone] Mirza Velazquez MD Unavailable [phone] Encounter Details Date Type Department Care Team (Late st Contact Info) Description 06/06/2025 Ancillary Orders DF IMG OUTSIDE IMG [address] [place] [address] Angélica Vance MD [address] [place] [address]#[address] [place] [address] [email or web address] Social History Tobacco Use Types [...] 2:15 PM EST Administrative Encounter Central Registration, [facility] 300 [facility] 3rd [place] [address] Angélica Vance MD [address] [place] [address]#[address] [place] [address] [email or web address] 06/16/2025 3:00 PM EST Office Visit [facility], [facility], [facility] 300 [facility] [address]th [place] [address] Angélica Vance MD [address] [place] [address]#[address] [place] [address] [email or web address] 07/11/2025 1:00 PM EST Office Visit [facility], [facility], [address], 9th [place] [address] Mirza Velazquez MD [address] [place] [address] [email or web address] documented as of this encounter Results * CT Abdomen/Pelvis Outside (No Interpretation) (12/31/2024 12:05 AM EDT) Narrative M[facility] - 06/06/2025 10:57 AM EST This study is for PACS storage only and not for interpretation. us Angélica Vance MD IMG OUTSIDE IMAGING W/OUT INTE RPRETATION Final Result [facility] documented in this encounter Visit Diagnoses Not on filedocumented in this encounter Care Teams Cook Starch Relationship Specialty Start Date End Date Jonna Long NP [address] [place] [address] [email or web address] PCP - General 06/04/25 Referring, Not Required Referring Physician 06/04/25 Angélica Vance MD 450 [facility] Cancer [facility] [place] [address] [email or web address] Medical Oncology 06/05/25 Mirza Velazquez MD [address] [place] [address] [email or web address] Surgical Oncology 06/05/25 documented as of this encounter Additional Source Comments The information contained in this document represents components of the legal health record. It is not the complete legal health record.[facility]
--- OUTSIDE RECORDS SUMMARY | 2025-06-10 10:48 | XMS_ITS | Encounter Summary ---
Author Organization [facility] Address [address] [place] [address] [place] [address] Phone Care Team Providers Care Field Scout Name Role Phone Jonna Long NP Primary Care Provider Referring, Not Required Unavailable Unavaila Angélica Oates MD Unavailable [phone] Mirza Velazquez MD Unavailable [phone] Encounter Details Date Type Department Care Team (Late st Contact Info) Description 06/06/2025 Ancillary Orders DF IMG OUTSIDE IMG [address] [place] [address] Angélica Vance MD [address] [place] [address]#[address] [place] [address] [email or web address] Social History Tobacco Use Types Packs/Day Years [...] 2:15 PM EST Administrative Encounter Central Registration, [facility] 300 [facility] [address]rd [place] [address] Angélica Vance MD [address] [place] [address] [place] [address] [email or web address] 06/16/2025 3:00 PM EST Office Visit [facility], [facility], [facility] [address] [facility] [address]th [place] [address] Angélica Vance MD [address] [place] [address]#[address] [place] [address] [email or web address] 07/11/2025 1:00 PM EST Office Visit [facility], [facility], [address], 9th [place] [address] Mirza Velazquez MD [address] [place] [address] [email or web address] documented as of this encounter Results * XR Chest Outside (No Interpretation) (09/18/2024 12:00 AM EDT) Narrative [facility] - 06/06/2025 11:00 AM EST This study is for PACS storage only and not for interpretation. us Angélica Vance MD IMG OUTSIDE IMAGING W/OUT INTE RPRETATION Final Result [facility] documented in this encounter Visit Diagnoses Not on filedocumented in this encounter Care Teams Field Scout Relationship Specialty Start Date End Date Jonna Long NP [address] [place] [address] [email or web address] PCP - General 06/04/25 Referring, Not Required Referring Physician 06/04/25 Angélica Vacne MD [address] [place] [address] Cancer [facility] [place] [address] [email or web address]. du Medical Oncology 06/05/25 Mirza Velazquez MD [address] [place] [address] [email or web address] Surgical Oncology 06/05/25 documented as of this encounter Additional Source Comments The information contained in this document represents components of the legal health record. It is not the complete legal health record.[facility]
--- OUTSIDE RECORDS SUMMARY | 2025-06-10 10:48 | XMS_ITS | Encounter Summary ---
Author Organization [facility] Prior to 04/26/2024 Address [address] [place] [address] Care Team Providers Care Tugger Operator Name Role Phone Oren Roberson MD Primary Care Provider [phone] Reason for Visit * Reason Onset Date Comments Faxed Refill 08/06/2018 Encounter Details Date Type Department Care Team Description 08/06/2018 Refill Pulmonology - [address] [place] [address] Tru Tang MD Faxed Refill [...] NO Patients current insurance carrier is: Payor: Fancy FFS / Plan: VLADIMIR [employer] [place]ARK[place] / Product Type: MEDICAID RISK documented in this encounter Plan of Treatment Not on file documented as of this encounter Visit Diagnoses Diagnosis Chronic obstructive pulmonary disease, unspecified COPD type (HCC) documented in this encounter Care Teams Tugger Operator Relationship Specialty Start Date End Date Oren Roberson MD PCP - General Internal Medicine 06/04/18 documented as of this encounter
--- OUTSIDE RECORDS SUMMARY | 2025-06-10 10:48 | XMS_ITS | Encounter Summary ---
Author Organization [facility] Prior to 04/26/2024 Address [address] [place] [address] Care Team Providers Care Ceramic Worker Name Role Phone Oren Roberson MD Primary Care Provider [phone] Encounter Details Date Type Department Care Team Description 10/20/2022 Well Service Derrick Worker Report Medical Records [address] [place] [address] Center, [facility] [address] [place] [address] Social History Tobacco Use Types Packs/Day Years [...] on filedocumented in this encounter Care Teams Ceramic Worker Relationship Specialty Start Date End Date Oren Roberson MD PCP - General Internal Medicine 06/04/18 documented as of this encounter
--- OUTSIDE RECORDS SUMMARY | 2025-06-10 10:48 | XMS_ITS | Encounter Summary ---
Author Organization [facility] Prior to 04/26/2024 Address [address] [place] [address] Care Team Providers Care Final Installer Inspector Name Role Phone Oren Roberson MD Primary Care Provider [phone] Encounter Details Date Type Department Care Team Description 04/08/2020 Refill Pulmonology - [place] 175 [facility] [address] [place] [address] Larry Myers MD [address] [place] [id number] Social History Tobacco Use Types Packs/Day Years [...] AM EDT documented as of this encounter Plan of Treatment Not on file documented as of this encounter Visit Diagnoses Diagnosis Chronic obstructive pulmonary disease, unspecified COPD type (HCC) documented in this encounter Care Teams Final Installer Inspector Relationship Specialty Start Date End Date Oren Roberson MD PCP - General Internal Medicine 06/04/18 documented as of this encounter
--- OUTSIDE RECORDS SUMMARY | 2025-06-10 10:48 | XMS_ITS | Encounter Summary ---
Author Organization [facility] Address [address] [place] [address] [place] [address] Phone Care Team Providers Care Grain Distributor Name Role Phone Jonna Long NP Primary Care Provider Referring, Not Required Unavailable Unavaila Angélica Oates MD Unavailable [phone] Mirza Velazquez MD Unavailable [phone] Encounter Details Date Type Department Care Team (Late st Contact Info) Description 06/06/2025 Ancillary Orders DF IMG OUTSIDE IMG [address] [place] [address] Angélica Vance MD [address] [place] [address]#[address] [place] [address] [email or web address] Social History Tobacco Use Types Packs/Day Years [...] 2:15 PM EST Administrative Encounter Central Registration, [facility] 300 [facility] [address]rd [place] [address] Angélica Vance MD [address] [place] [address]#[address] [place] [address] [email or web address] 06/16/2025 3:00 PM EST Office Visit [facility], [facility], [facility] 300 [facility] [address] [place] [address] Angélica Vance MD [address] [place] [address]#[address] [place] [address] [email or web address] 07/11/2025 1:00 PM EST Office Visit [facility], [facility], [address], 9th [place] [address] Mirza Velazquez MD [address] [place] [address] [email or web address] documented as of this encounter Results * CT Chest Outside (No Interpretation) (12/31/2024 12:00 AM EDT) Narrative [facility] - 06/06/2025 10:54 AM EST This study is for PACS storage only and not for interpretation. us Angélica Vance MD IMG OUTSIDE IMAGING W/OUT INTE RPRETATION Final Result [facility] documented in this encounter Visit Diagnoses Not on filedocumented in this encounter Care Teams Grain Distributor Relationship Specialty Start Date End Date Jonna Long NP [address] [place] [address] [email or web address] PCP - General 06/04/25 Referring, Not Required Referring Physician 06/04/25 Angélica Vance MD [address] [place] [address] Cancer [facility] [place] [address] [email or web address] Medical Oncology 06/05/25 Mirza Velazquez MD [address] [place] [address] [email or web address] Surgical Oncology 06/05/25 documented as of this encounter Additional Source Comments The information contained in this document represents components of the legal health record. It is not the complete legal health record.[facility]
--- OUTSIDE RECORDS SUMMARY | 2025-06-10 10:48 | XMS_ITS | Encounter Summary ---
Author Organization [facility] Prior to 04/26/2024 Address [address] [place] [address] Care Team Providers Care Manager Emergency Department Name Role Phone Oren Roberson MD Primary Care Provider [phone] Encounter Details Date Type Department Care Team Description 08/15/2019 Telephone Internal Medicine - [address], [address] [place] [address] Oren Roberson MD [address] [place] [address] Social History Tobacco Use Types Packs/Day Years [...] filedocumented in this encounter Care Teams Manager Emergency Department Relationship Specialty Start Date End Date Oren Roberson MD PCP - General Internal Medicine 06/04/18 documented as of this encounter
--- OUTSIDE RECORDS SUMMARY | 2025-06-10 10:48 | XMS_ITS | Encounter Summary ---
Author Organization [facility] Address [address] [place] [address] [place] [address] Phone Care Team Providers Care Microsoft Dynamics Developer Name Role Phone Jonna Long NP Primary Care Provider Referring, Not Required Unavailable Unavaila Angélica Oates MD Unavailable [phone] Mirza Velazquez MD Unavailable [phone] Encounter Details Date Type Department Care Team (Late st Contact Info) Description 06/06/2025 Ancillary Orders DF IMG OUTSIDE IMG [address] [place] [address] Angélica Vance MD [address] [place] [address]#[address] [place] [address] [email or web address] Social History Tobacco Use Types Packs/Day [...] 2:15 PM EST Administrative Encounter Central Registration, [facility] 300 [facility] 3rd [place] [address] Angélica Vance MD [address] [place] [address]#[address] [place] [address] [email or web address] 06/16/2025 3:00 PM EST Office Visit [facility], [facility], [facility] 300 [facility] [address] [place] [address] Angélica Vance MD [address] [place] [address]#[address] [place] [address] [email or web address] 07/11/2025 1:00 PM EST Office Visit [facility], [facility], [address], 9th [place] [address] Mirza Velazquez MD [address] [place] [address] [email or web address] documented as of this encounter Results * CT Chest Outside (No Interpretation) (10/17/2022 12:00 AM EDT) Narrative MERYL_[facility] - 06/06/2025 11:04 AM EST This study is for PACS storage only and not for interpretation. us Angélica Vance MD IMG OUTSIDE IMAGING W/OUT INTE RPRETATION Final Result [facility] documented in this encounter Visit Diagnoses Not on filedocumented in this encounter Care Teams Microsoft Dynamics Developer Relationship Specialty Start Date End Date Jonna Long NP [address] [place] [address] [email or web address] PCP - General 06/04/25 Referring, Not Required Referring Physician 06/04/25 Angélica Vance MD [address] [place] [address] [facility] [place] [address] [email or web address] Medical [email or web address] 06/05/25 Mirza Velazquez MD [address] [place] [address] [email or web address] Surgical Oncology 06/05/25 documented as of this encounter Additional Source Comments The information contained in this document represents components of the legal health record. It is not the complete legal health record.[facility]
--- OUTSIDE RECORDS SUMMARY | 2025-06-10 10:48 | XMS_ITS | Encounter Summary ---
Author Organization [facility] Address [address] [place] [address] [place] [address] Phone Care Team Providers Care Landscape Gardener Name Role Phone Jonna Long NP Primary Care Provider Referring, Not Required Unavailable Unavaila Angélica Oates MD Unavailable [phone] Mirza Velazquez MD Unavailable [phone] Encounter Details Date Type Department Care Team (Late st Contact Info) Description 06/06/2025 Ancillary Orders DF IMG OUTSIDE IMG [address] [place] [address] Angélica Vance MD [address] [place] [address] [place] [address] [email or web address] Social History Tobacco Use Types [...] 2:15 PM EST Administrative Encounter Central Registration, [facility] [address] [facility] [address] [place] [address] Angélica Vance MD [address] [place] [address]50 [place] [address] [email or web address] 06/16/2025 3:00 PM EST Office Visit [facility], [facility], [facility] [address] [facility] [address] [place] [address] Angélica Vance MD [address] [place] [address] [place] [address] [email or web address] 07/11/2025 1:00 PM EST Office Visit [facility], [facility], [address], 9th [place] [address] Mirza Velazquez MD [address] [place] [address] [email or web address] documented as of this encounter Results * CT Chest Outside (No Interpretation) (09/10/2024 12:00 AM EDT) Narrative [facility] - 06/06/2025 11:03 AM EST This study is for PACS storage only and not for interpretation. us Angélica Vance MD IMG OUTSIDE IMAGING W/OUT INTE RPRETATION Final Result [facility] documented in this encounter Visit Diagnoses Not on filedocumented in this encounter Care Teams Landscape Gardener Relationship Specialty Start Date End Date Jonna Long NP [address] [place] [address] [email or web address] PCP - General 06/04/25 Referring, Not Required Referring Physician 06/04/25 Angélica Vance MD [address] [place] [address] Cancer [facility] [place] [address] [email or web address] Medical [email or web address] 06/05/25 Mirza Velazquez MD [address] [place] [address] [email or web address] Surgical Oncology 06/05/25 documented as of this encounter Additional Source Comments The information contained in this document represents components of the legal health record. It is not the complete legal health record.[facility]
--- OUTSIDE RECORDS SUMMARY | 2025-06-10 10:48 | XMS_ITS | Encounter Summary ---
Author Organization [facility] Prior to 04/26/2024 Address [address] [place] [address] Care Team Providers Care Corrections Corporal Name Role Phone Oren Roberson MD Primary Care Provider [phone] Encounter Details Date Type Department Care Team Description 10/21/2022 Orders Only [facility] Medical [facility] [place] [address] [facility] [address] [place] [phone] Jamey Reaves MD 299 [facility] [place] [address] [place] [address] History of tobacco abuse Social History Tobacco [...] health documented in this encounter Care Teams Corrections Corporal Relationship Specialty Start Date End Date Oren Roberson MD PCP - General Internal Medicine 06/04/18 documented as of this encounter
--- OUTSIDE RECORDS SUMMARY | 2025-06-10 10:48 | XMS_ITS | Encounter Summary ---
Author Organization [facility] Prior to 04/26/2024 Address [address] [place] [address] Care Team Providers Care Swimming Coach Name Role Phone Oren Roberson MD Primary Care Provider [phone] Reason for Visit * Reason Onset Date Comments refill request 02/13/2019 Encounter Details Date Type Department Care Team Description 02/13/2019 Telephone Internal Medicine - [address], [address] [place], [place] [id number] Oren Roberson MD [address] [place] [address] refill request Social History Tobacco Use Types [...] N/A Patients current insurance carrier is: Payor: [employer] FFS / Plan: [employer] / Product Type: MEDICAID RISK documented in this encounter Plan of Treatment Not on file documented as of this encounter Visit Diagnoses Not on filedocumented in this encounter Care Teams Swimming Coach Relationship Specialty Start Date End Date Oren Roberson MD PCP - General Internal Medicine 06/04/18 documented as of this encounter
--- OUTSIDE RECORDS SUMMARY | 2025-06-10 10:48 | XMS_ITS | Encounter Summary ---
Author Organization [facility] Prior to 04/26/2024 Address [address] [place] [address] Care Team Providers Care Head Kiln Operator Name Role Phone Rosalind Hightower MD Primary Care Provider Unavailab Oren Butler MD Primary Care Provider [phone] Reason for Visit * Reason Onset Date Comments Faxed Refill 04/12/2018 Encounter Details Date Type Department Care Team Description 04/12/2018 Refill Pulmonology - [address] [id number] Tru Tang MD Faxed Refill Social History Tobacco Use Types Packs/Day Years Used Date Smoking Tobacco: Former Cigarettes 1 40 Smokeless Tobacco: Never Alcohol Use Standard Drinks/Week Comments Yes 12 (1 standard drink = 0.6 oz pu re alcohol) weekly Sex Assigned at Date Recorded Not on file documented as of this encounter Miscellaneous Notes * Telephone Encounter - Viri Maxwell - 04/12/2018 10:24 AM EDT Patient would like script to be: E-PRESCRIBED/FAXED TO PHARMACY WHEN WAS THE PATIENT'S LAST APPOINTMENT WITH THE PRESCRIBING PROVIDER? [id number] Does patient have an upcoming appointment? Yes [id number] (THE MEDICATION REQUESTED IS ON THE MED LIST ABOVE) All of the medications requested were on the CURRENT MEDS list Did you check the Pharmacy information above?: YES Patient wants: 90 -day supply Is this a mail order prescription request ? NO Patients current insurance carrier is: Payor: [employer] FFS / Plan: [employer] ROARK / Product Type: MEDICAID RISK documented in this encounter Plan of Treatment Not on file documented as of this encounter Visit Diagnoses Diagnosis Chronic obstructive pulmonary disease, unspecified COPD type (HCC) documented in this encounter Care Teams Head Kiln Operator Relationship Specialty Start Date End Date Rosalind Hightower MD PCP - General Internal Medicine 11/28/17 06/03/18 Oren Roberson MD PCP - General Internal Medicine 06/04/18 documented as of this encounter
--- OUTSIDE RECORDS SUMMARY | 2025-06-10 10:48 | XMS_ITS | Encounter Summary ---
Author Organization [facility] Address [address] [place] [address] [place] [address] Phone Care Team Providers Care Electric Motor Assembler And Tester Name Role Phone Jonna Long NP Primary Care Provider Referring, Not Required Unavailable Unavaila Angélica Oates MD Unavailable [phone] Mirza Velazquez MD Unavailable [phone] Encounter Details Date Type Department Care Team (Late st Contact Info) Description 06/06/2025 Ancillary Orders DF IMG OUTSIDE IMG [address] [place] [address] Angélica Vance MD [address] [place] [address]#[address] [place] [address] [email or web address] Social History Tobacco Use Types Packs/Day [...] 2:15 PM EST Administrative Encounter Central Registration, [facility] 300 [facility] 3rd [place] [address] Angélica Vance MD [address] [place] [address]#[address] [place] [address] [email or web address] 06/16/2025 3:00 PM EST Office Visit [facility], [facility], [facility] [address] [facility] [address] [place] [address] Angélica Vance MD [address] [place] [address] [place] [address] [email or web address] 07/11/2025 1:00 PM EST Office Visit [facility], [facility], [address], 9th [place] [address] Mirza Velazquez MD [address] [place] [address] [email or web address] documented as of this encounter Results * US Abdomen Outside (No Interpretation) (09/16/2024 12:00 AM EDT) Narrative [facility] - 06/06/2025 11:00 AM EST This study is for PACS storage only and not for interpretation. us Angélica Vance MD IMG OUTSIDE IMAGING W/OUT INTE RPRETATION Final Result [facility] documented in this encounter Visit Diagnoses Not on filedocumented in this encounter Care Teams Electric Motor Assembler And Tester Relationship Specialty Start Date End Date Jonna Long NP [address] [place] [address] [email or web address] PCP - General 06/04/25 Referring, Not Required Referring Physician 06/04/25 Angélica Vance MD [address] [place] [address] Cancer [facility] [place] [address] [email or web address] Medical [email or web address] 06/05/25 Mirza Velazquez MD [address] [place] [address] [email or web address] Surgical Oncology 06/05/25 documented as of this encounter Additional Source Comments The information contained in this document represents components of the legal health record. It is not the complete legal health record.[facility]
--- OUTSIDE RECORDS SUMMARY | 2025-06-10 10:48 | XMS_ITS | Encounter Summary ---
Author Organization [facility] Address [address] [place] [address] [place] [address] Phone Care Team Providers Care State Assessed Properties Director Name Role Phone Jonna Long NP Primary Care Provider Referring, Not Required Unavailable Unavaila Angélica Oates MD Unavailable [phone] Mirza Velazquez MD Unavailable [phone] Encounter Details Date Type Department Care Team (Late st Contact Info) Description 06/06/2025 Ancillary Orders DF IMG OUTSIDE IMG [address] [place] [address] Angélica Vance MD [address] [place] [address]#[address] [place] [address] [email or web address] Social History Tobacco Use Types [...] 2:15 PM EST Administrative Encounter Central Registration, [facility] 300 [facility] 3rd [place] [address] Angélica Vance MD [address] [place] [address]#[address] [place] [address] [email or web address] 06/16/2025 3:00 PM EST Office Visit [facility], [facility], [facility] [address] [facility] [address]th [place] [address] Angélica Vance MD [address] [place] [address]#[address] [place] [address] [email or web address] 07/11/2025 1:00 PM EST Office Visit [facility], [facility], [address], 9th [place] [address] Mirza Velazquez MD [address] [place] [address] [email or web address] documented as of this encounter Results * XR Chest Outside (No Interpretation) (09/16/2024 12:05 AM EDT) Narrative [facility] - 06/06/2025 11:04 AM EST This study is for PACS storage only and not for interpretation. us Angélica Vance MD IMG OUTSIDE IMAGING W/OUT INTE RPRETATION Final Result [facility] documented in this encounter Visit Diagnoses Not on filedocumented in this encounter Care Teams State Assessed Properties Director Relationship Specialty Start Date End Date Jonna Long NP [address] [place] [address] [email or web address] PCP - General 06/04/25 Referring, Not Required Referring Physician 06/04/25 Angélica Vance MD [address] [place] [address] Cancer [facility] [place] [address] [email or web address] Medical [email or web address] 06/05/25 Mirza Velazquez MD [address] [place] [address] [email or web address] Surgical Oncology 06/05/25 documented as of this encounter Additional Source Comments The information contained in this document represents components of the legal health record. It is not the complete legal health record.[facility]
--- OUTSIDE RECORDS SUMMARY | 2025-06-10 10:48 | XMS_ITS | Encounter Summary ---
Author Organization [facility] Prior to 04/26/2024 Address [address] [place] [address] Care Team Providers Care Finishing Room Supervisor Name Role Phone Oren Roberson MD Primary Care Provider [phone] Encounter Details Date Type Department Care Team Description 10/07/2021 Education Adviser Report Medical Records [address] [place] [address] Center, [facility] [address] [place] [address] Social History Tobacco Use Types Packs/Day Years [...] on filedocumented in this encounter Care Teams Finishing Room Supervisor Relationship Specialty Start Date End Date Oren Roberson MD PCP - General Internal Medicine 06/04/18 documented as of this encounter
--- OUTSIDE RECORDS SUMMARY | 2025-06-10 10:49 | XMS_ITS | Encounter Summary ---
Author Organization [facility] Address [address] [place] [address] [place] [address] Phone Care Team Providers Care Cash Register Mechanic Name Role Phone Jonna Long NP Primary Care Provider Referring, Not Required Unavailable Unavaila Angélica Oates MD Unavailable [phone] Miraz Velazquez MD Unavailable [phone] Encounter Details Date Type Department Care Team (Late st Contact Info) Description 06/06/2025 Ancillary Orders DF IMG OUTSIDE IMG [address] [place] [address] Angélica Vance MD [address] [place] [address]#[address] [place] [address] [email or web address] Social History Tobacco Use Types [...] 2:15 PM EST Administrative Encounter Central Registration, [facility] 300 [facility] 3rd [place] [address] Angélica Vance MD [address] [place] [address]#[address] [place] [address] [email or web address] 06/16/2025 3:00 PM EST Office Visit Center for Breast [facility]cology, [facility], [facility] 300 [facility] [address] [place] [address] Angélica Vance MD [address] [place] [address]#[address] [place] [address] [email or web address] 07/11/2025 1:00 PM EST Office Visit [facility], [facility], [address], 9th [place] [address] Mirza Velazquez MD [address] [place] [address] [email or web address] documented as of this encounter Results * CT Chest Outside (No Interpretation) (10/07/2021 12:00 AM EDT) Narrative [facility] - 06/06/2025 11:05 AM EST This study is for PACS storage only and not for interpretation. us Angélica Vance MD IMG OUTSIDE IMAGING W/OUT INTE RPRETATION Final Result [facility] documented in this encounter Visit Diagnoses Not on filedocumented in this encounter Care Teams Cash Register Mechanic Relationship Specialty Start Date End Date Jonna Long NP [address] [place] [address] [email or web address] PCP - General 06/04/25 Referring, Not Required Referring Physician 06/04/25 Angélica Vance MD [address] [place] [address] Cancer [facility] [place] [address] [email or web address] 06/05/25 Mirza Velazquez MD [address] [place] [address] [email or web address] Surgical Oncology 06/05/25 documented as of this encounter Additional Source Comments The information contained in this document represents components of the legal health record. It is not the complete legal health record.[facility]
--- OUTSIDE RECORDS SUMMARY | 2025-06-10 10:49 | XMS_ITS | Encounter Summary ---
Author Organization [facility] Address [address] [place] [address] [place] [address] Phone Care Team Providers Care Sleeve Sewer Name Role Phone Jonna Long NP Primary Care Provider Referring, Not Required Unavailable Unavaila Angélica Oates MD Unavailable [phone] Mirza Velazquez MD Unavailable [phone] Encounter Details Date Type Department Care Team (Late st Contact Info) Description 06/06/2025 Ancillary Orders DF IMG OUTSIDE IMG [address] [place] [address] Angélica Vance MD [address] [place] [address]#[address] [place] [address] [email or web address] Social History Tobacco Use Types [...] 2:15 PM EST Administrative Encounter Central Registration, [facility] 300 [facility] 3rd [place] [address] Angélica Vance MD [address] [place] [address]#[address] [place] [address] [email or web address] 06/16/2025 3:00 PM EST Office Visit [facility] for Breast [facility], [facility], [facility] [address] [facility] [address]th [place] [address] Angélica Vance MD [address] [place] [address]#[address] [place] [address] [email or web address] 07/11/2025 1:00 PM EST Office Visit [facility] for Breast [facility], [facility], [address], 9th [place] [address] Mirza Velazquez MD [address] [place] [address] [email or web address] documented as of this encounter Results * CT Chest Outside (No Interpretation) (10/17/2022 12:05 AM EDT) Narrative [facility] - 06/06/2025 11:04 AM EST This study is for PACS storage only and not for interpretation. us Angélica Vance MD IMG OUTSIDE IMAGING W/OUT INTE RPRETATION Final Result [facility] documented in this encounter Visit Diagnoses Not on filedocumented in this encounter Care Teams Sleeve Sewer Relationship Specialty Start Date End Date Jonna Long NP [address] [place] [address] [email or web address] PCP - General 06/04/25 Referring, Not Required Referring Physician 06/04/25 Angélica Vance MD [address] [place] [address] Cancer [facility] [place] [address] [email or web address] du Medical Oncology 06/05/25 Mirza Velazquez MD [address] [place] [address] [email or web address] Surgical Oncology 06/05/25 documented as of this encounter Additional Source Comments The information contained in this document represents components of the legal health record. It is not the complete legal health record.[facility]
--- OUTSIDE RECORDS SUMMARY | 2025-06-10 10:49 | XMS_ITS | Encounter Summary ---
Author Organization [facility] Prior to 04/26/2024 Address [address] [place] [address] Care Team Providers Care Viscose Cellar Charge Hand Name Role Phone Oren Roberson MD Primary Care Provider [phone] Reason for Visit * Reason Comments E-prescribe Rx Request Encounter Details Date Type Department Care Team Description 01/11/2020 Refill Pulmonology - [place] [address] [facility] [address] [place] [address] Larry Myers MD [address] [place] [address] E-prescribe Rx Request Social History [...] NO Patients current insurance carrier is: Payor: [employer] FFS / Plan: [employer] / Product Type: MEDICAID RISK documented in this encounter Plan of Treatment Not on file documented as of this encounter Visit Diagnoses Diagnosis Chronic obstructive pulmonary disease, unspecified COPD type (HCC) documented in this encounter Care Teams Viscose Cellar Charge Hand Relationship Specialty Start Date End Date Oren Roberson MD PCP - General Internal Medicine 06/04/18 documented as of this encounter
--- OUTSIDE RECORDS SUMMARY | 2025-06-10 10:49 | XMS_ITS | Encounter Summary ---
Author Organization [facility] Prior to 04/26/2024 Address [address] [place] [address] Care Team Providers Care Bracelet Form Coverer Name Role Phone Oren Roberson MD Primary Care Provider [phone] Encounter Details Date Type Department Care Team Description 03/16/2020 Refill Internal Medicine - [address], [address] [place] [address] Oren Roberson MD [address] [place] [address] Social History Tobacco Use Types Packs/Day Years [...] on filedocumented in this encounter Care Teams Bracelet Form Coverer Relationship Specialty Start Date End Date Oren Roberson MD PCP - General Internal Medicine 06/04/18 documented as of this encounter
--- OUTSIDE RECORDS SUMMARY | 2025-06-10 10:49 | XMS_ITS | Encounter Summary ---
Author Organization [facility] Address [address] [place] [address] [place] [address] Phone Care Team Providers Care Microfilm Operator Name Role Phone Jonna Long NP Primary Care Provider Referring, Not Required Unavailable Unavaila Angélica Oates MD Unavailable [phone] Mirza Velazquez MD Unavailable [phone] Encounter Details Date Type Department Care Team (Late st Contact Info) Description 06/06/2025 Orders Only Elvia Lank Imaging Department, [facility], Radiography [address] [facility], Floor L1 [place] [address] Angélica Vance MD [address] [facility] [place] [address] [email or web address] Social History Tobacco Use Types Packs/Day Years Used Date Smoking Tobacco: Never Assessed Child or Family Care Answer Date Record ed Do you have problems with on e of the following making it difficult for you to work, study, or receive health care? No 06/09/2025 Education Answer Date Recorded Are you interested in more education? Not on tho e 06/05/2025 Are you concerned about learning? Not on file 06/05/2025 No 06/05/2025 No 06/05/2025 Food Answer Date Recorded Within the past 6 months we worried whether our food would run out before we got money to buy more. Never True 06/09/2025 Within the past 6 months the food we bought just didn't last and we didn't have enough money to get more. Never True Residential Stability Answer Date Recor ded What is your housing situation today? I am stayi ng with others 06/09/2025 How many times have you move d in the past 12 months? One time 06/09/2025 Paying for Meds Answer Date Recorded Do you have trouble paying for medicines? Yes 06/09/2025 Paying Utility Bills Answer Date Record ed Do you have trouble paying y our heating or electricity bill? I choose not to answer 06/09/2025 Transportation Answer Date Recorded Has the lack of transportati on kept you from medical appointments or from getting medications? No 06/09/2025 Digital Access Answer Date Recorded No 06/05/2025 [...] 2:15 PM EST Administrative Encounter Central Registration, [facility] at [address] [address] Angélica Vance MD [address] [place] [address] [place] [address] [email or web address] 06/16/2025 3:00 PM EST Office Visit [facility], [facility], [facility] at [address] [address] Angélica Vanec MD [address] [place] [address] [place] [address] [email or web address] 07/11/2025 1:00 PM EST Office Visit [facility], [facility], [facility] 450 [facility], 9th [place] [address] Mirza Velazquez MD [address] [place] [address] [email or web address] documented as of this encounter Results * DXA Outside (No Interpretation) (03/11/2025 12:05 AM EDT) Narrative KATIE - 06/06/2025 11:11 AM EST This study is for PACS storage only and not for interpretation. us Angélica Vance MD IMG OUTSIDE IMAGING W/OUT INTE RPRETATION Final Result [facility] documented in this encounter Visit Diagnoses Not on filedocumented in this encounter Care Teams Microfilm Operator Relationship Specialty Start Date End Date Jonna Long NP [address] [place] [address] [email or web address] PCP - General 06/04/25 Referring, Not Required Referring Physician 06/04/25 Angélica Vance MD [address] [place] [address] [place] [address] [email or web address] Medical Oncology 06/05/25 Mirza Velazquez MD [address] [place] [address] [email or web address] Surgical Oncology 06/05/25 documented as of this encounter Additional Source Comments The information contained in this document represents components of the legal health record. It is not the complete legal health record.[facility]
--- OUTSIDE RECORDS SUMMARY | 2025-06-10 10:49 | XMS_ITS | Clinical Summary ---
Author Organization [facility] Address [address] [place] [address] [place] [address] Phone Care Team Providers Care Hooker Operator Name Role Phone Jonna Long NP Primary Care Provider Referring, Not Required Unavailable Unavaila Angélica Oates MD Unavailable [phone] Mirza Velazquez MD Unavailable [phone] Encounters Date Type Department Care Team Description 06/09/2025 Transcribe Orders Elvia Lank Imaging Department, [facility], Radiography [address] [facility], Floor [address]1 [place] [address] Angélica Vance MD 06/09/2025 Ancillary Orders DF IMG OUTSIDE IMG 450 [place] [address] Angélica Vance MD 06/06/2025 Orders Only Elvia Lank Imaging Department, [facility], Radiography [address] [facility], Floor [address]1 [place] [address] Angélica Vance MD 06/06/2025 Ancillary Orders DF IMG OUTSIDE IMG 450 [place] [address] Angélica Vance MD 06/06/2025 Ancillary Orders DF IMG OUTSIDE IMG 450 [place] [address] Angélica Vance MD 06/06/2025 Ancillary Orders DF IMG OUTSIDE IMG 450 [place] [address] Angélica Vance MD 06/06/2025 Ancillary Orders DF IMG OUTSIDE IMG [address] [place] [address] Angélica Vance MD 06/06/2025 Ancillary Orders DF IMG OUTSIDE IMG [address] [place] [address] Angélica Vance MD 06/06/2025 Ancillary Orders DF IMG OUTSIDE IMG [address] [place] [address] Angélica Vance MD 06/06/2025 Ancillary Orders DF IMG OUTSIDE IMG [address] [place] [address] Angélica Vance MD 06/06/2025 Ancillary Orders DF IMG OUTSIDE IMG [address] [place] [address] Angélica Vance MD 06/06/2025 Ancillary Orders DF IMG OUTSIDE IMG [address] [place] [address] Angélica Vance MD 06/06/2025 Ancillary Orders DF IMG OUTSIDE IMG [address] [place] [address] Angélica Vance MD 06/06/2025 Ancillary Orders DF IMG OUTSIDE IMG [address] [place] [address] Angélica Vance MD 06/06/2025 Ancillary Orders DF IMG OUTSIDE IMG [address] [place] [address] Angélica Vance MD 06/06/2025 Ancillary Orders DF IMG OUTSIDE IMG [address] [place] [address] Angélica Vance MD 06/06/2025 Ancillary Orders DF IMG OUTSIDE IMG [address] [place] [address] Angélica Vance MD 06/06/2025 Ancillary Orders DF IMG OUTSIDE IMG [address] [place] [address] Angélica Vance MD 06/06/2025 Ancillary Orders DF IMG OUTSIDE IMG [address] [place] [address] Angélica Vance MD 06/06/2025 Ancillary Orders DF IMG OUTSIDE IMG [address] [place] [address] Angélica Vance MD 06/06/2025 Ancillary Orders DF IMG OUTSIDE IMG [address] [place] [address] Angélica Vance MD 06/06/2025 Ancillary Orders DF IMG OUTSIDE IMG [address] [place] [address] Angélica Vance MD 06/05/2025 Orders Only [facility], [facility], [facility] [address] [place] [address], 9th [place] [address] Angélica Vance MD Malignant neoplasm of female breast, unspecified estrogen receptor status, unspecified laterality, unspecified site of breast (Primary Dx) 06/02/2025 Ancillary Procedure DF IMG OUTSIDE IMG [address] [place] [address] Angélica Vance MD Arrived 05/26/2025 Ancillary Procedure DF IMG OUTSIDE IMG [address] [place] [address] Angélica Vance MD Arrived 04/28/2025 12:05 AM EST Ancillary Procedure DF IMG OUTSIDE IMG [address] [place] [address] Angélica Vance MD 04/28/2025 Ancillary Procedure DF IMG OUTSIDE IMG [address] [place] [address] Angélica Vance MD 04/16/2025 12:05 AM EDT Ancillary Procedure DF IMG OUTSIDE IMG [address] [place] [address] Angélica Vance MD 04/16/2025 Ancillary Procedure DF IMG OUTSIDE IMG [address] [place] [address] Angélica Vance MD 03/11/2025 12:05 AM EDT Ancillary Procedure DF IMG OUTSIDE IMG [address] [place] [address] Angélica Vance MD 03/11/2025 Ancillary Procedure DF IMG OUTSIDE IMG [address] [place] [address] Angélica Vance MD from Last 3 Months Social History Tobacco [...] Orientation Straight 06/04/2025 4: 31 PM EST Plan of Treatment Upcoming Encounters Date Type Department Care Team (Late st Contact Info) Description 06/16/2025 2:15 PM EST Administrative Encounter Central Registration, [facility] [place] [address] [facility] 3rd [place] [address] Angélica Vance MD [address] [facility] [place] [address] [email or web address] 06/16/2025 3:00 PM EST Office Visit Center for Breast [facility]cology, [facility], [facility] [place] [address] [facility] 4th [place] [address] Angélica Vance MD [address] [facility] [place] [address] [email or web address] 07/11/2025 1:00 PM EST Office Visit [facility], [facility], [address], 9th [place] [address] Mirza Velazquez MD 450 [place] [address] [email or web address] Health Maintenance Due Date Last Done Comments LIPID PANEL 1958 DEPRESSION SCREENING 1970 SMOKING Hx and SMOKELESS TOBACCO SCREENING 10/06/1971 HEPATITIS C SCREENING 1976 COLOGUARD 10/06/2003 COLONOSCOPY 10/06/2003 COLORECTAL CANCER SCREENING 10/06/2003 FIT TEST 10/06/2003 FOBT 10/06/2003 SIGMOIDOSCOPY 10/06/2003 VIRTUAL COLONOSCOPY 10/06/2003 OSTEOPOROSIS SCREENING INITIAL (ONE-TIME) 10/06/2023 COVID-19 VACCINE ( season) 2025 02/08/2021, 01/18/2021 MAMMOGRAM 05/26/2027 05/26/2025, 11/0 08/2024, 04/16/2025, Additional history exists RSV VACCINE (1 - 1-dose 75+ series) 2033 Adult Td,Tdap Booster 02/21/2035 02/21/2025 ZOSTER VACCINES Completed 02/08/2020, 08/12/2019 INFLUENZA VACCINE Completed 02/21/2025, , 03/17/2020, Additional history exists PNEUMOCOCCAL VACCINES (50+ years) Completed 02/21/2025 HEPATITIS A VACCINES Aged Out No long er eligible based on patient's age to complete this topic HIB VACCINES Aged Out No longer eligi ble based on patient's age to complete this topic MENINGOCOCCAL VACCINES (ACWY) Aged Out No longer eligible based on patient's age to complete this topic MENINGOCOCCAL VACCINES (B) Aged Out N o longer eligible based on patient's age to complete this topic Medical Devices Not on file Procedures Procedure Name Priority Date/Time Associated Diagnosis Comments BI US BREAST OUTSIDE (NO INTERPRETATION) Routine 06/02/2025 12:00 AM EST BI MRI BREAST OUTSIDE (NO INTERPRETATION) Routine 05/26/2025 12:00 AM EST BI US BREAST OUTSIDE (NO INTERPRETATION) Routine 04/28/2025 12:05 AM EST BI MAMMOGRAM OUTSIDE (NO INTERPRETATION) Routine 04/28/2025 12:00 AM EST OUTSIDE PROCEDURE 04/28/2025 OUTSIDE LAB 04/24/2025 BI MAMMOGRAM OUTSIDE (NO INTERPRETATION) Routine 04/16/2025 12:05 AM EDT BI US BREAST OUTSIDE (NO INTERPRETATION) Routine 04/16/2025 12:00 AM EDT OUTSIDE IMAGING 04/16/2025 BD DXA OUTSIDE (NO INTERPRETATION) Routine 03/11/2025 12:05 AM EDT BI MAMMOGRAM OUTSIDE (NO INTERPRETATION) Routine 03/11/2025 12:00 AM EDT OUTSIDE IMAGING 03/11/2025 OUTSIDE IMAGING 03/11/2025 from Last 3 Months Results * US Breast Outside (No Interpretation) (06/02/2025 12:00 AM EST) Narrative [facility] - 06/06/2025 10:47 AM EST This study is for PACS storage only and not for interpretation. us Angélica Vance MD IMG OUTSIDE IMAGING W/OUT INTE RPRETATION Final Result Performing Organization Address [facility] de Phone Number [facility] * MRI Breast Outside (No Interpretation) (05/26/2025 12:00 AM EST) Narrative [facility] - 06/06/2025 10:47 AM EST This study is for PACS storage only and not for interpretation. us Angélica ROSENG OUTSIDE IMAGING W/OUT INTE RPRETATION Final Result Performing Organization Address [facility] Phone Number [facility] * US Breast Outside (No Interpretation) (04/28/2025 12:05 AM EST) Narrative [facility] - 06/06/2025 10:51 AM EST This study is for PACS storage only and not for interpretation. us Angélica ROSENG OUTSIDE IMAGING W/OUT INTE RPRETATION Final Result Performing Organization Address [facility] de Phone Number [facility] * Outside Procedure (04/28/2025) us Scanning Interface Provider PROCEDURE/MINOR SURG ICAL PERFORMABLES Final Result * Mammogram Outside (No Interpretation) (04/28/2025 12:00 AM EST) Narrative [facility] - 06/06/2025 10:51 AM EST This study is for PACS storage only and not for interpretation. us Angélica ROSENG OUTSIDE IMAGING W/OUT INTE RPRETATION Final Result Performing Organization Address [facility] de Phone Number [facility] * Outside Lab (Non-MGB) (04/24/2025) us Scanning Interface Provider LAB BLOOD BKR ORDERA BLES Final Result * Mammogram Outside (No Interpretation) (04/16/2025 12:05 AM EDT) Narrative [facility] - 06/06/2025 10:52 AM EST This study is for PACS storage only and not for interpretation. us Angélica Vance MD IMG OUTSIDE IMAGING W/OUT INTE RPRETATION Final Result Performing Organization Address [facility] Phone Number [facility] * Outside Imaging Report Only (04/16/2025) us Scanning Interface Provider IMG XR CHEST Lois l Result * US Breast Outside (No Interpretation) (04/16/2025 12:00 AM EDT) Narrative [facility] - 06/06/2025 10:52 AM EST This study is for PACS storage only and not for interpretation. us Angélica Vance MD IMG OUTSIDE IMAGING W/OUT INTE RPRETATION Final Result Performing Organization Address [facility] de Phone Number [facility] * DXA Outside (No Interpretation) (03/11/2025 12:05 AM EDT) Narrative [facility] - 06/06/2025 11:11 AM EST This study is for PACS storage only and not for interpretation. us Angélica Vance MD IMG OUTSIDE IMAGING W/OUT INTE RPRETATION Final Result Performing Organization Address [facility] de Phone Number [facility] * Outside Imaging Report Only (03/11/2025) us Scanning Interface Provider IMG XR CHEST Lois l Result * Outside Imaging Report Only (03/11/2025) us Scanning Interface Provider IMG XR CHEST Lois l Result * Mammogram Outside (No Interpretation) (03/11/2025 12:00 AM EDT) Narrative [facility] - 06/06/2025 10:53 AM EST This study is for PACS storage only and not for interpretation. us Angélica Vance MD IMG OUTSIDE IMAGING W/OUT INTE RPRETATION Final Result [facility] from Last 3 Months Insurance [facility] MEDICARE PPO BLUE REPLACEMENT [facility] MEDICARE PPO BLUE REPLACEMENT Member Subscriber Plan / Payer (Ef fective 2024-Present) Name:Earlene Causey Relation to Subscriber:Self Name:Earlene Causey Payer ID:[id number] (NAIC) Type:Medicare Address: [place] [id number] [facility] MEDICARE PPO BLUE REPLACEMENT [facility] MEDICARE PPO BLUE REPLACEMENT [facility] MEDICARE PPO BLUE REPLAC[place] BLUE REPLACEMENT Care Teams Hooker Operator Relationship Specialty Start Date End Date Jonna Long NP [address] [place] [address] [email or web address] PCP - General 06/04/25 Referring, Not Required Referring Physician 06/04/25 Angélica Vance MD [address] [place] [address] [facility] [place] [address] [email or web address] Medical Oncology 06/05/25 Mirza Velazquez MD [address] [place] [address] [email or web address] Surgical Oncology 06/05/25 Additional Source Comments The information contained in this document represents components of the legal health record. It is not the complete legal health record.[facility]
--- OUTSIDE RECORDS SUMMARY | 2025-06-10 10:49 | XMS_ITS | Clinical Summary ---
Author Organization [facility] Prior to 04/26/2024 Address [address] [place] [address] Care Team Providers Care Volcanology Teacher Name Role Phone Oren Roberson MD Primary Care Provider Allergies Active Allergy Reactions Severity Noted Date [...] 019 INFLUENZA (#1) 2025 04/23/2018 Care Teams Volcanology Teacher Relationship Specialty Start Date End Date Oren Roberson MD PCP - General Internal Medicine 06/04/18
--- OUTSIDE RECORDS SUMMARY | 2025-06-10 10:49 | XMS_ITS | Encounter Summary ---
Author Organization [facility] Address [address] [place] [address] [place] [address] Phone Care Team Providers Care Nursing Home Director Name Role Phone Jonna Long NP Primary Care Provider Referring, Not Required Unavailable Unavaila Angélica Oates MD Unavailable [phone] Mirza Velazquez MD Unavailable [phone] Encounter Details Date Type Department Care Team (Late st Contact Info) Description 06/09/2025 Transcribe Orders Elvia Lank Imaging Department, [facility], Radiography [address] [facility], Floor L1 [place] [address] Angélica Vance MD 450 [facility] [place] [address] [email or web address] Social History Tobacco Use Types Packs/Day Years [...] 2:15 PM EST Administrative Encounter Central Registration, [facility] at [address] [address] Angélica Vance MD [address] [place] [address] [place] [address] [email or web address] 06/16/2025 3:00 PM EST Office Visit [facility] for Breast [facility], [facility], [facility] at [address] [address] Angélica Vance MD [address] [place], [place] [address] [place] [address] [email or web address] 07/11/2025 1:00 PM EST Office Visit [facility], [facility], [facility] [address] [facility], 9th [place] [address] Mirza Velazquez MD 450 [place] [address] [email or web address] documented as of this encounter Results * CT Chest Outside (No Interpretation) (09/10/2024 12:10 AM EDT) Narrative KATIE - 06/09/2025 1:52 PM EST This study is for PACS storage only and not for interpretation. us Angélica Vance MD IMG OUTSIDE IMAGING W/OUT INTE RPRETATION Final Result Performing Organization Address City/State/[facility] Co de Phone Number [facility] documented in this encounter Visit Diagnoses Not on filedocumented in this encounter Care Teams Nursing Home Director Relationship Specialty Start Date End Date Jonna Long NP [address] [place] [address] [email or web address] PCP - General 06/04/25 Referring, Not Required Referring Physician 06/04/25 Angélica Vance MD [address] [place] [address] [place] [address] [email or web address] Medical Oncology 06/05/25 Mirza eVlazquez MD [address] [place] [address] [email or web address] Surgical Oncology 06/05/25 documented as of this encounter Additional Source Comments The information contained in this document represents components of the legal health record. It is not the complete legal health record.[facility]
--- OUTSIDE RECORDS SUMMARY | 2025-06-10 10:49 | XMS_ITS | Encounter Summary ---
Author Organization [facility] Address [address] [place] [address] [place] [address] Phone Care Team Providers Care Molding Machine Operator Helper Name Role Phone Jonna Long NP Primary Care Provider Referring, Not Required Unavailable Unavaila Angélica Oates MD Unavailable [phone] Mirza Velazquez MD Unavailable [phone] Encounter Details Date Type Department Care Team (Late st Contact Info) Description 06/06/2025 Ancillary Orders DF IMG OUTSIDE IMG [address] [place] [address] Angélica Vance MD [address] [place] [address] [place] [address] [email or web address] Social History Tobacco Use Types [...] Administrative Encounter Central Registration, [facility] [address] [facility] [address] [place] [address] Angélica Vance MD [address] [place] [address] [place] [address] [email or web address] 06/16/2025 3:00 PM EST Office Visit [facility], [facility], [facility] [address] [facility] [address] [place] [address] Angélica Vance MD [address] [place] [address] [place] [address] [email or web address] 07/11/2025 1:00 PM EST Office Visit [facility], [facility], [address], 9th [place] [address] Mirza Velazquez MD [address] [place] [address] [email or web address] documented as of this encounter Results * Mammogram Outside (No Interpretation) (04/16/2025 12:05 AM EDT) Narrative [facility] - 06/06/2025 10:52 AM EST This study is for PACS storage only and not for interpretation. us Angélica Vance MD IMG OUTSIDE IMAGING W/OUT INTE RPRETATION Final Result [facility] documented in this encounter Visit Diagnoses Not on filedocumented in this encounter Care Teams Molding Machine Operator Helper Relationship Specialty Start Date End Date Jonna Long NP [address] [place] [address] [email or web address] PCP - General 06/04/25 Referring, Not Required Referring Physician 06/04/25 Angélica Vance MD [address] [place] [address] Cancer [facility] [place] [address] [email or web address] Medical Oncology 06/05/25 Mirza Velazquez MD [address] [place] [address] [email or web address] Surgical Oncology 06/05/25 documented as of this encounter Additional Source Comments The information contained in this document represents components of the legal health record. It is not the complete legal health record.[facility]
--- OUTSIDE RECORDS SUMMARY | 2025-06-10 10:49 | XMS_ITS | Encounter Summary ---
Author Organization [facility] Address [address] [place] [address] [place] [address] Phone Care Team Providers Care Capsule Machine Operator Name Role Phone Jonna Long NP Primary Care Provider Referring, Not Required Unavailable Unavaila Angélica Oates MD Unavailable [phone] Mirza Velazquez MD Unavailable [phone] Encounter Details Date Type Department Care Team (Late st Contact Info) Description 06/06/2025 Ancillary Orders DF IMG OUTSIDE IMG 450 [place] [address] Angélica Vance MD [address] [place] [address]#4830 [place] [address] [email or web address] Social History Tobacco Use Types Packs/Day [...] 2:15 PM EST Administrative Encounter Central Registration, [facility] [place] 300 [facility] 3rd [place] [address] Angélica Vance MD [address] [place] [address]#1250 [place] [address] [email or web address] 06/16/2025 3:00 PM EST Office Visit [facility], [facility], [facility] [place] 300 [facility] 4th [place] [address] Angélica Vance MD [address] [place] [address]#1250 [place] [address] [email or web address] 07/11/2025 1:00 PM EST Office Visit [facility], [facility], [address], 9th [place] [address] Mirza Velazquez MD [address] [place] [address] [email or web address] documented as of this encounter Results * CT Chest Outside (No Interpretation) (09/14/2024 12:00 AM EDT) Narrative [facility] - 06/06/2025 11:01 AM EST This study is for PACS storage only and not for interpretation. us Angélica Vance MD IMG OUTSIDE IMAGING W/OUT INTE RPRETATION Final Result [facility] documented in this encounter Visit Diagnoses Not on filedocumented in this encounter Care Teams Capsule Machine Operator Relationship Specialty Start Date End Date Jonna Long NP [address] [place] [address] [email or web address] PCP - General 06/04/25 Referring, Not Required Referring Physician 06/04/25 Angélica Vance MD [address] [place] [address] Cancer [facility] [place] [address] [email or web address] du Medical Oncology 06/05/25 Mirza Velazquez MD [address] [place] [address] [email or web address] Surgical Oncology 06/05/25 documented as of this encounter Additional Source Comments The information contained in this document represents components of the legal health record. It is not the complete legal health record.[facility]
--- OUTSIDE RECORDS SUMMARY | 2025-06-10 10:49 | XMS_ITS | Encounter Summary ---
Author Organization [facility] Address [address] [place] [address] [place] [address] Phone Care Team Providers Care Overlock Waistline Joiner Name Role Phone Jonna Long NP Primary Care Provider Referring, Not Required Unavailable Unavaila Angélica Oates MD Unavailable [phone] Mirza Velazquez MD Unavailable [phone] Encounter Details Date Type Department Care Team (Late st Contact Info) Description 06/06/2025 Ancillary Orders DF IMG OUTSIDE IMG 450 [place] [address] Angélica Vance MD [address] [place] [address]#9320 [place] [address] [email or web address] Social History Tobacco Use Types Packs/Day [...] 2:15 PM EST Administrative Encounter Central Registration, [facility] 300 [facility] 3rd [place] [address] Angélica Vance MD [address] [place] [address]#[address] [place] [address] [email or web address] 06/16/2025 3:00 PM EST Office Visit [facility], [facility], [facility] 300 [facility] [address] [place] [address] Angélica Vance MD [address] [place] [address]#[address]50 [place] [address] [email or web address] 07/11/2025 1:00 PM EST Office Visit [facility], [facility], [address], 9th [place] [address] Mirza Velazquez MD [address] [place] [address] [email or web address] documented as of this encounter Results * Mammogram Outside (No Interpretation) (03/11/2025 12:00 AM EDT) Narrative [facility] - 06/06/2025 10:53 AM EST This study is for PACS storage only and not for interpretation. us Angélica Vance MD IMG OUTSIDE IMAGING W/OUT INTE RPRETATION Final Result [facility] documented in this encounter Visit Diagnoses Not on filedocumented in this encounter Care Teams Overlock Waistline Joiner Relationship Specialty Start Date End Date Jonna Long NP [address] [place] [address] [email or web address] PCP - General 06/04/25 Referring, Not Required Referring Physician 06/04/25 Angélica Vance MD [address] [place] [address] Cancer [facility] [place] [address] [email or web address] Medical Oncology 06/05/25 Mirza Velazquez MD [address] [place] [address] [email or web address] Surgical Oncology 06/05/25 documented as of this encounter Additional Source Comments The information contained in this document represents components of the legal health record. It is not the complete legal health record.[facility]
--- OUTSIDE RECORDS SUMMARY | 2025-06-10 10:49 | XMS_ITS | Encounter Summary ---
Author Organization [facility] Prior to 04/26/[address] [place] [address] Care Team Providers Care Automation Control Integrator Name Role Phone Oren Roberson MD Primary Care Provider [phone] Reason for Visit * Reason Onset Date Comments refill request 03/03/2020 Encounter Details Date Type Department Care Team Description 03/03/2020 Refill Pulmonology - [place] 175 [facility] [address] [place] [address] Larry Myers MD [address] [place] [phone] refill request Social History Tobacco Use Types [...] (HCC) documented in this encounter Care Teams Automation Control Integrator Relationship Specialty Start Date End Date Oren Roberson MD PCP - General Internal Medicine 06/04/18 documented as of this encounter
--- OUTSIDE RECORDS SUMMARY | 2025-06-10 10:49 | XMS_ITS | Encounter Summary ---
Author Organization [facility] Address [address] [place] [address] [place] [address] Phone Care Team Providers Care Clinical Trials Nurse Name Role Phone Jonna Long NP Primary Care Provider Referring, Not Required Unavailable Unavaila Angélica Oates MD Unavailable [phone] Mirza Velazquez MD Unavailable [phone] Encounter Details Date Type Department Care Team (Late st Contact Info) Description 06/09/2025 Ancillary Orders DF IMG OUTSIDE IMG 450 [place] [address] Angélica Vance MD [address] [place] [address] Cancer [facility] [place] [address] [email or web address] Social History [...] 2:15 PM EST Administrative Encounter Central Registration, [facility] at [address] [address] Angélica Vance MD [address] [place] [address]#8780 [place] [address] [email or web address] 06/16/2025 3:00 PM EST Office Visit [facility], [facility], [facility] at [address] [address] Angélica Vance MD [address] [place], [place] [address] [place] [address] [email or web address] 07/11/2025 1:00 PM EST Office Visit [facility], [facility], [facility] [place] 450 [facility], 9th [place] [address] Mirza Velazquez MD [address] [place] [address] [email or web address] documented as of this encounter Results * XR Chest Outside (No Interpretation) (09/10/2024 12:05 AM EDT) N[facility]ative [facility] - 06/09/2025 1:46 PM EST This study is for PACS storage only and not for interpretation. us Angélica Vance MD IMG OUTSIDE IMAGING W/OUT INTE RPRETATION Final Result [facility] documented in this encounter Visit Diagnoses Not on filedocumented in this encounter Care Teams Clinical Trials Nurse Relationship Specialty Start Date End Date Jonna Long NP [address] [place] [address] [email or web address] PCP - General 06/04/25 Referring, Not Required Referring Physician 06/04/25 Angélica Vance MD [address] [place] [address]#1250 [place] [address] [email or web address] du Medical Oncology 06/05/25 Mirza Velazquez MD [address] [place] [address] [email or web address] Surgical Oncology 06/05/25 documented as of this encounter Additional Source Comments The information contained in this document represents components of the legal health record. It is not the complete legal health record.[facility]
--- OUTSIDE RECORDS SUMMARY | 2025-06-10 10:49 | XMS_ITS | Clinical Summary ---
Author Organization [employer] Address [address] [facility] 7 [place] [address] Care Team Providers Care Petrography Teacher Name Role Phone Unavailable Primary Care Provider Unavailabl e Medications Umeclidinium Rheems (Incruse Ellipta) 62.5 MCG/ACT aerosol powderIndicatio ns:COPD with hypoxia (CMS/HCC) ([facility]) Inhale 1 Act (62.5 mcg) Once per day. 30 each 5 Active Dulera 100-5 MCG/ACT inhalerIndicati ons:COPD with hypoxia (CMS/HCC) ([facility]) 5 Active ipratropium-alb uterol (Duo-Neb) 0.5-2.5 mg/3 mL nebulizer solutionIndicat ions:COPD with hypoxia (CMS/HCC) ([facility]) INHALE 1 AMPULE USING A [...] to complete this topic Insurance [employer] [facility] MEDICARE REPLACEMENT PPO
--- OUTSIDE RECORDS SUMMARY | 2025-06-10 10:50 | XMS_ITS | Encounter Summary ---
Author Organization [facility] Address [address] [place] [address] [place] [address] Phone Care Team Providers Care Principal Technical Specialist Name Role Phone Jonna Long NP Primary Care Provider Referring, Not Required Unavailable Unavaila Angélica Oates MD Unavailable [phone] Mirza Velazquez MD Unavailable [phone] Encounter Details Date Type Department Care Team (Late st Contact Info) Description 06/05/2025 Orders Only [facility], [facility], [facility] [place] [address] [place] [address], 9th [place] [address] Angélica Vance MD [address] [place] [address]#5670 [place] [address] [email or web address] Malignant neoplasm of female breast, unspecified estrogen receptor status, unspecified laterality, unspecified site of breast (Primary Dx) Social History Tobacco Use Types [...] 2:15 PM EST Administrative Encounter Central Registration, [facility] [place] 300 [facility] 3rd [place] [address] Angélica Vance MD [address] [place] [address]#1250 [place] [address] [email or web address] 06/16/2025 3:00 PM EST Office Visit [facility] for Breast [facility], [facility], [facility] [place] 300 [facility] 4th [place] [address] Angélica Vance MD [address] [place] [address]#[address] [place] [address] [email or web address] 07/11/2025 1:00 PM EST Office Visit [facility], [facility], [address] [place] [address], 9th [place] [address] Mirza Velazquez MD [address] [place] [address] [email or web address] Scheduled Orders Name Type Priority Associated Diagnoses Orde r Schedule Outside Pathology Review/Consult Pathology and Cytology Routine Malignant neoplasm of female breast, unspecified estrogen receptor status, unspecified laterality, unspecified site of breast Expected: 06/05/2025, Expires: 06/05/2026 documented as of this encounter Visit Diagnoses Diagnosis Malignant neoplasm of female breast, unspecified estrogen receptor status, unspecified laterality, unspecified site of breast- Primary documented in this encounter Care Teams Principal Technical Specialist Relationship Specialty Start Date End Date Jonna Long NP [address] [place] [address] [email or web address] PCP - General 06/04/25 Referring, Not Required Referring Physician 06/04/25 Angélica Vance MD [address] [place] [address] Cancer [facility] [place] [address] [email or web address] du Medical Oncology 06/05/25 Mirza Velazquez MD [address] [place] [address] [email or web address] Surgical Oncology 06/05/25 documented as of this encounter Additional Source Comments The information contained in this document represents components of the legal health record. It is not the complete legal health record.[facility]
--- OUTSIDE RECORDS SUMMARY | 2025-06-10 10:50 | XMS_ITS | Encounter Summary ---
Author Organization [facility] Address [address] [place] [address] [place] [address] Phone Care Team Providers Care Long Chain Dyeing Machine Operator Name Role Phone Jonna Long NP Primary Care Provider Referring, Not Required Unavailable Unavaila Angélica Oates MD Unavailable [phone] Mirza Velazquez MD Unavailable [phone] Encounter Details Date Type Department Care Team (Late st Contact Info) Description 06/06/2025 Ancillary Orders DF IMG OUTSIDE IMG 450 [place] [address] Angélica Vance MD [address] [place] [address]#2400 [place] [address] [email or web address] Social History Tobacco Use Types Packs/Day [...] 2:15 PM EST Administrative Encounter Central Registration, [facility] [place] 300 [facility] 3rd [place] [address] Angélica Vance MD [address] [place] [address]#1250 [place] [address] [email or web address] 06/16/2025 3:00 PM EST Office Visit [facility] for Breast [facility]cology, [facility], [facility] [place] 300 [facility] 4th [place] [address] Angélica Vance MD [address] [place] [address]#1250 [place] [address] [email or web address] 07/11/2025 1:00 PM EST Office Visit [facility] Breast [facility], [facility], [address], 9th [place] [address] Mirza Velazquez MD [address] [place] [address] [email or web address] documented as of this encounter Results * MRI Breast Outside (No Interpretation) (05/26/2025 12:00 AM EST) Narrative [facility] - 06/06/2025 10:47 AM EST This study is for PACS storage only and not for interpretation. us Angélica Vance MD IMG OUTSIDE IMAGING W/OUT INTE RPRETATION Final Result [facility] documented in this encounter Visit Diagnoses Not on filedocumented in this encounter Care Teams Long Chain Dyeing Machine Operator Relationship Specialty Start Date End Date Jonna Long NP [address] [place] [address] [email or web address] PCP - General 06/04/25 Referring, Not Required Referring Physician 06/04/25 Angélica Vance MD [address] [place] [address] Cancer [facility] [place] [address] [email or web address] Medical Oncology 06/05/25 Mirza Velazquez MD [address] [place] [address] [email or web address] Surgical Oncology 06/05/25 documented as of this encounter Additional Source Comments The information contained in this document represents components of the legal health record. It is not the complete legal health record.[facility]
--- OUTSIDE RECORDS SUMMARY | 2025-06-10 10:50 | XMS_ITS | Encounter Summary ---
Author Organization [facility] Address [address] [place] [address] [place] [address] Phone Care Team Providers Care Market Editor Name Role Phone Jonna Long NP Primary Care Provider Referring, Not Required Unavailable Unavaila Angélica Oates MD Unavailable [phone] Mirza Velazquez MD Unavailable [phone] Encounter Details Date Type Department Care Team (Late st Contact Info) Description 06/06/2025 Ancillary Orders DF IMG OUTSIDE IMG 450 [place] [address] Angélica Vance MD [address] [place] [address]#5750 [place] [address] [email or web address] Social History Tobacco Use Types Packs/Day Years [...] 2:15 PM EST Administrative Encounter Central Registration, [facility] [place] 300 [facility] 3rd [place] [address] Angélica Vance MD [address] [place] [address]#1250 [place] [address] [email or web address] 06/16/2025 3:00 PM EST Office Visit [facility] for Breast [facility]cology, [facility], [facility] [place] 300 [facility] [address] [place] [address] Angélica Vance MD [address] [place] [address]#1250 [place] [address] [email or web address] 07/11/2025 1:00 PM EST Office Visit [facility] for Breast [facility], [facility], [address], 9th [place] [address] Mirza Velazquez MD [address] [place] [address] [email or web address] documented as of this encounter Results * US Breast Outside (No Interpretation) (04/28/2025 12:05 AM EST) Narrative [facility] - 06/06/2025 10:51 AM EST This study is for PACS storage only and not for interpretation. us Angélica Vance MD IMG OUTSIDE IMAGING W/OUT INTE RPRETATION Final Result [facility] documented in this encounter Visit Diagnoses Not on filedocumented in this encounter Care Teams Market Editor Relationship Specialty Start Date End Date Jonna Long NP [address] [place] [address] [email or web address] PCP - General 06/04/25 Referring, Not Required Referring Physician 06/04/25 Angélica Vance MD [address] [place] [address] Cancer [facility] [place] [address] [email or web address] du Medical Oncology 06/05/25 Mirza Velazquez MD [address] [place] [address] [email or web address] Surgical Oncology 06/05/25 documented as of this encounter Additional Source Comments The information contained in this document represents components of the legal health record. It is not the complete legal health record.[facility]
--- OUTSIDE RECORDS SUMMARY | 2025-06-10 10:50 | XMS_ITS | Encounter Summary ---
Author Organization [facility] Address [address] [place] [address] [place] [address] Phone Care Team Providers Care Supervisor Sulfuric Acid Plant Name Role Phone Jonna Long NP Primary Care Provider Referring, Not Required Unavailable Unavaila Angélica Oates MD Unavailable [phone] Mirza Velazquez MD Unavailable [phone] Encounter Details Date Type Department Care Team (Late st Contact Info) Description 06/06/2025 Ancillary Orders DF IMG OUTSIDE IMG 450 [place] [address] Angélica Vance MD [address] [place] [address]#0380 [place] [address] [email or web address] Social History Tobacco Use Types Packs/Day Years [...] 2:15 PM EST Administrative Encounter Central Registration, [facility] [place] 300 [facility] 3rd [place] [address] Angélica Vance MD [address] [place] [address]#1250 [place] [address] [email or web address] 06/16/2025 3:00 PM EST Office Visit [facility] for Breast Oncology, [facility], [facility] [place] 300 [facility] [address] [place] [address] Angélica Vance MD [address] [place] [address]#1250 [place] [address] [email or web address] 07/11/2025 1:00 PM EST Office Visit [facility], [facility], [address], 9th [place] [address] Mirza Velazquez MD [address] [place] [address] [email or web address] documented as of this encounter Results * Mammogram Outside (No Interpretation) (04/28/2025 12:00 AM EST) Narrative [facility] - 06/06/2025 10:51 AM EST This study is for PACS storage only and not for interpretation. us Angélica Vance MD IMG OUTSIDE IMAGING W/OUT INTE RPRETATION Final Result [facility] documented in this encounter Visit Diagnoses Not on filedocumented in this encounter Care Teams Supervisor Sulfuric Acid Plant Relationship Specialty Start Date End Date Jonna Long NP [address] [place] [address] [email or web address] PCP - General 06/04/25 Referring, Not Required Referring Physician 06/04/25 Angélica Vance MD [address] [place] [address] Cancer [facility] [place] [address] [email or web address] Medical Oncology 06/05/25 Mirza Velazquez MD [address] [place] [address] [email or web address] Surgical Oncology 06/05/25 documented as of this encounter Additional Source Comments The information contained in this document represents components of the legal health record. It is not the complete legal health record.[facility]
--- OUTSIDE RECORDS SUMMARY | 2025-06-10 10:50 | XMS_ITS | Encounter Summary ---
Author Organization [facility] Address [address] [place] [address] [place] [address] Phone Care Team Providers Care Lead Advisor Name Role Phone Jonna Long NP Primary Care Provider Referring, Not Required Unavailable Unavaila Angélica Oates MD Unavailable [phone] Mirza Velazquez MD Unavailable [phone] Encounter Details Date Type Department Care Team (Late st Contact Info) Description 06/06/2025 Ancillary Orders DF IMG OUTSIDE IMG [address] [place] [address] Angélica Vance MD [address] [place] [address] [place] [address] [email or web address] Social History Tobacco Use [...] 2:15 PM EST Administrative Encounter Central Registration, [facility] 300 [facility] [address] [place] [address] Angélica Vance MD [address] [place] [address] [place] [address] [email or web address] 06/16/2025 3:00 PM EST Office Visit [facility], [facility], [facility] 300 [facility] [address] [place] [address] Angélica Vance MD [address] [place] [address] [place] [address] [email or web address] 07/11/2025 1:00 PM EST Office Visit [facility], [facility], [address], 9[address] [place] [address] Mirza Velazquez MD [address] [place] [address] [email or web address] documented as of this encounter Results * US Breast Outside (No Interpretation) (04/16/2025 12:00 AM EDT) Narrative [facility] - 06/06/2025 10:52 AM EST This study is for PACS storage only and not for interpretation. us Angélica Vance MD IMG OUTSIDE IMAGING W/OUT INTE RPRETATION Final Result [facility] documented in this encounter Visit Diagnoses Not on filedocumented in this encounter Care Teams Lead Advisor Relationship Specialty Start Date End Date Jonna Long NP [address] [place] [address] [email or web address] PCP - General 06/04/25 Referring, Not Required Referring Physician 06/04/25 Angélica Vance MD [address] [place] [address] Cancer [facility] [place] [address] [email or web address] 06/05/25 Mirza Velazquez MD [address] [place] [address] [email or web address] Surgical Oncology 06/05/25 documented as of this encounter Additional Source Comments The information contained in this document represents components of the legal health record. It is not the complete legal health record.[facility]
--- OUTSIDE RECORDS SUMMARY | 2025-06-10 10:50 | XMS_ITS | Encounter Summary ---
Author Organization [facility] Address [address] [place] [address] [place] [address] Phone Care Team Providers Care Pleater Name Role Phone Jonna Long NP Primary Care Provider Referring, Not Required Unavailable Unavaila Angélica Oates MD Unavailable [phone] Mirza Velazquez MD Unavailable [phone] Encounter Details Date Type Department Care Team (Late st Contact Info) Description 06/06/2025 Ancillary Orders DF IMG OUTSIDE IMG [address] [place] [address] Angélica Vance MD [address] [place] [address]#[address] [place] [address] [email or web address] Social History Tobacco Use Types [...] EST Administrative Encounter Central Registration, [facility] 300 [facility] [address] [place] [address] Angélica Vance MD [address] [place] [address]#[address] [place] [address] [email or web address] 06/16/2025 3:00 PM EST Office Visit [facility], [facility], [facility] 300 [facility] [address] [place] [address] Angélica Vance MD [address] [place] [address]#[address] [place] [address] [email or web address] 07/11/2025 1:00 PM EST Office Visit [facility], [facility], [address], 9th [place] [address] Mirza Velazquez MD [address] [place] [address] [email or web address] documented as of this encounter Results * US Breast Outside (No Interpretation) (06/02/2025 12:00 AM EST) Narrative [facility] - 06/06/2025 10:47 AM EST This study is for PACS storage only and not for interpretation. us Angélica Vance MD IMG OUTSIDE IMAGING W/OUT INTE RPRETATION Final Result [facility] documented in this encounter Visit Diagnoses Not on filedocumented in this encounter Care Teams Pleater Relationship Specialty Start Date End Date Jonna Long NP [address] [place] [address] [email or web address] PCP - General 06/04/25 Referring, Not Required Referring Physician 06/04/25 Angélica Vance MD [address] [place] [address] Cancer [facility] [place] [address] [email or web address] 06/05/25 Mirza Velazquez MD [address] [place] [address] [email or web address] Surgical Oncology 06/05/25 documented as of this encounter Additional Source Comments The information contained in this document represents components of the legal health record. It is not the complete legal health record.[facility]
[2025-06-12 10:24] LABS: CA 27.29 40 U/mL (<38)
== END 2025-06-10 09:22 | disposition home or self-care (01) ==
LOC: HO.LAB 09:21
PROVIDERS: PCP Nurse Practitioner Family; Visit Provider Internal Medicine
DX: C50.912 Malignant neoplasm of unspecified site of left female breast (principal)
CPT/HCPCS: 36415; 80076; 86300

== ENCOUNTER 2025-06-11 08:18 | Outpatient (REF) | payer MEDICARE, MEDICAID, SELFPAY ==
--- NOTE | ~2025-06-11 | US_ITS ---
EXAMINATION: US DIAGNOSTIC ULTRASOUND BREAST, LEFT CLINICAL INFORMATION: Previous breast MRI on May 26, 2025 describes Question prominent left axillary lymph nodes. Ultrasound evaluation at this time is recommended for confirmation . COMPARISON: Breast MRI on May 26, 2025. Screening mammogram on March 24, 2025. Postprocedure mammogram on April 28, 2025. FINDINGS: Targeted ultrasound of the left axilla was performed. The survey shows two benign-appearing lymph nodes with preserved fatty hilum and with normal cortical thickness of less than 2 mm. US/US breast LT limited IMPRESSION: 1. Two benign-appearing lymph nodes seen on today's ultrasound survey of the left axilla. 2. Note that in accordance to previous breast ultrasound report on June 02, 2025, the next step would be an MR guided needle core biopsy of the left breast finding. Results are provided to the patient at time of visit by the technologist. ASSESSMENT: Category 6: Known Biopsy-Proven Malignancy RECOMMENDATION: Biopsy recommended Today's examination is a no-charge. Electronically signed by: Leanne Novak MD 06/11/2025 09:15 AM TERRANCE HARRISON
--- OUTSIDE RECORDS SUMMARY | 2025-06-11 08:23 | XMS_ITS | Encounter Summary ---
Author Organization [facility] Prior to 04/26/2024 Address [address] [place] [address] Care Team Providers Care Poultry Buyer Name Role Phone Oren Roberson MD Primary Care Provider [phone] Encounter Details Date Type Department Care Team Description 10/08/2020 Cloth Dye Range Operator Report Medical Records [address] [place], [place] [address] [place] [address] Social History Tobacco Use Types Packs/Day Years [...] on filedocumented in this encounter Care Teams Poultry Buyer Relationship Specialty Start Date End Date Oren Roberson MD PCP - General Internal Medicine 06/04/18 documented as of this encounter
--- OUTSIDE RECORDS SUMMARY | 2025-06-11 08:23 | XMS_ITS | Encounter Summary ---
Author Organization [facility] Prior to 04/26/2024 Address [address] [place] [address] Care Team Providers Care Communicable Disease Specialist Name Role Phone Oren Roberson MD Primary Care Provider [phone] Encounter Details Date Type Department Care Team Description 08/28/2020 Refill Internal Medicine - [address], [address] [place] [address] Oren Roberson MD [address] [place] [address] Social History Tobacco Use Types Packs/Day Years [...] on filedocumented in this encounter Care Teams Communicable Disease Specialist Relationship Specialty Start Date End Date Oren Roberson MD PCP - General Internal Medicine 06/04/18 documented as of this encounter
--- OUTSIDE RECORDS SUMMARY | 2025-06-11 08:23 | XMS_ITS | Encounter Summary ---
Author Organization [facility] Prior to 04/26/2024 Address [address] [place] [address] Care Team Providers Care Furnace Reliner Name Role Phone Oren Roberson MD Primary Care Provider [phone] Encounter Details Date Type Department Care Team Description 10/20/2022 Celery Wrapper Report Medical Records [address] [place] [address] Center, [facility] [address] [place] [address] Social History Tobacco Use Types Packs/Day Years [...] on filedocumented in this encounter Care Teams Furnace Reliner Relationship Specialty Start Date End Date Oren Roberson MD PCP - General Internal Medicine 06/04/18 documented as of this encounter
--- OUTSIDE RECORDS SUMMARY | 2025-06-11 08:23 | XMS_ITS | Encounter Summary ---
Author Organization [facility] Prior to 04/26/2024 Address [address] [place] [address] Care Team Providers Care Vp Human Resources Name Role Phone Oren Roberson MD Primary Care Provider [phone] Encounter Details Date Type Department Care Team Description 10/07/2021 Orders Only [facility] Medical [facility] Lung Screening Program [place] 299 [facility] [address] [place] [phone] Jamey Reaves MD 299 [facility] [address] [place] [address] History of tobacco abuse Social History Tobacco [...] CT LOW DOSE LUNG SCREEN ANNUAL Routine 10/07/2021 History of tobacco abuse documented in this encounter Results * CT LOW DOSE LUNG SCREEN ANNUAL (10/07/2021) Jamey Reaves MD CT SCANS documented in this encounter Visit Diagnoses Diagnosis History of tobacco abuse Personal history of tobacco use, presenting hazards to health documented in this encounter Care Teams Vp Human Resources Relationship Specialty Start Date End Date Oren Roberson MD PCP - General Internal Medicine 06/04/18 documented as of this encounter
--- OUTSIDE RECORDS SUMMARY | 2025-06-11 08:23 | XMS_ITS | Encounter Summary ---
Author Organization [facility] Prior to 04/26/2024 Address [address] [place] [address] Care Team Providers Care Seam Steamer Name Role Phone Oren Roberson MD Primary Care Provider [phone] Encounter Details Date Type Department Care Team Description 04/08/2020 Refill Pulmonology - [place] 175 [facility] [address] [place] [address] Larry Myers MD [address] [place] [id number] Social History Tobacco Use Types Packs/Day Years [...] (HCC) documented in this encounter Care Teams Seam Steamer Relationship Specialty Start Date End Date Oren Roberson MD PCP - General Internal Medicine 06/04/18 documented as of this encounter
--- OUTSIDE RECORDS SUMMARY | 2025-06-11 08:23 | XMS_ITS | Encounter Summary ---
Author Organization [facility] Prior to 04/26/2024 Address [address] [place] [address] Care Team Providers Care Executive Talent Acquisition Consultant Name Role Phone Rosalind Hightower MD Primary Care Provider Unavailab Oren Butler MD Primary Care Provider [phone] Reason for Visit * Reason Onset Date Comments Faxed Refill 04/12/2018 Encounter Details Date Type Department Care Team Description 04/12/2018 Refill Pulmonology - [address] [phone] Tru Tang MD Faxed Refill Social History [...] PATIENT'S LAST APPOINTMENT WITH THE PRESCRIBING PROVIDER? [id number] Does patient have an upcoming appointment? Yes [id number] (THE MEDICATION REQUESTED IS ON THE MED LIST ABOVE) All of the medications requested were on the CURRENT MEDS list Did you check the Pharmacy information above?: YES Patient wants: 90 -day supply Is this a mail order prescription request ? NO Patients current insurance carrier is: Payor: [employer] FFS / Plan: [employer] KELL / Product Type: MEDICAID RISK documented in this encounter Plan of Treatment Not on file documented as of this encounter Visit Diagnoses Diagnosis Chronic obstructive pulmonary disease, unspecified COPD type (HCC) documented in this encounter Care Teams Executive Talent Acquisition Consultant Relationship Specialty Start Date End Date Rosalind Hightower MD PCP - General Internal Medicine 11/28/17 06/03/18 Oren Roberson MD PCP - General Internal Medicine 06/04/18 documented as of this encounter
--- OUTSIDE RECORDS SUMMARY | 2025-06-11 08:23 | XMS_ITS | Encounter Summary ---
Author Organization [facility] Prior to 04/26/2024 Address [address] [place] [address] Care Team Providers Care Hydraulic Pile Hammer Operator Name Role Phone Oren Roberson MD Primary Care Provider [phone] Encounter Details Date Type Department Care Team Description 02/06/2021 Refill Internal Medicine - [address], [address] [place] [address] Oren Roberson MD [address] [place] [address] Social History Tobacco Use Types Packs/Day Years [...] - Incruse maren 62.5 mcg Preferred pharmacy: [facility] [address] [place] [address] Medication renewals requested in this message routed separately: Mometasone Furo-Formoterol Fum (DULERA ) 200-5 MCG/ACT Aerosol [GRAYSON ROA MD, MD] hydrochlorothiazide (HYDRODIURIL) 25 MG tablet [Da Lott MD] documented in this encounter Plan of Treatment Not on file documented as of this encounter Visit Diagnoses Not on filedocumented in this encounter Care Teams Hydraulic Pile Hammer Operator Relationship Specialty Start Date End Date Oren Roberson MD PCP - General Internal Medicine 06/04/18 documented as of this encounter
--- OUTSIDE RECORDS SUMMARY | 2025-06-11 08:23 | XMS_ITS | Encounter Summary ---
Author Organization [facility] Prior to 04/26/2024 Address [address] [place] [address] Care Team Providers Care Physicist Light And Optics Name Role Phone Rosalind Hightower MD Primary Care Provider Unavailab Oren Butler MD Primary Care Provider [phone] Encounter Details Date Type Department Care Team Description 12/13/2017 Orders Only Pulmonology - [address] [place] [phone] Cara Marcial NP Social History Tobacco Use [...] on filedocumented in this encounter Care Teams Physicist Light And Optics Relationship Specialty Start Date End Date Rosalind Hightower MD PCP - General Internal Medicine 11/28/17 06/03/18 Oren Roberson MD PCP - General Internal Medicine 06/04/18 documented as of this encounter
--- OUTSIDE RECORDS SUMMARY | 2025-06-11 08:23 | XMS_ITS | Encounter Summary ---
Author Organization [facility] Prior to 04/26/2024 Address [address] [place] [address] Care Team Providers Care Zinc Plater Name Role Phone Oren Roberson MD Primary Care Provider [phone] Encounter Details Date Type Department Care Team Description 03/26/2021 Refill Internal Medicine - [address], [address] [place] [address] Oren Roberson MD [address] [place] [address] Social History Tobacco Use Types Packs/Day Years [...] on filedocumented in this encounter Care Teams Zinc Plater Relationship Specialty Start Date End Date Oren Roberson MD PCP - General Internal Medicine 06/04/18 documented as of this encounter
--- OUTSIDE RECORDS SUMMARY | 2025-06-11 08:23 | XMS_ITS | Encounter Summary ---
Author Organization [facility] Prior to 04/26/2024 Address [address] [place] [address] Care Team Providers Care Loan Collector Name Role Phone Oren Roberson MD Primary Care Provider [phone] Encounter Details Date Type Department Care Team Description 02/06/2021 Refill Pulmonology - [place] 175 [facility] [address] [place] [address] Larry Myers MD [address] [place] [address] Social History Tobacco Use Types [...] (HCC) documented in this encounter Care Teams Loan Collector Relationship Specialty Start Date End Date Oren Roberson MD PCP - General Internal Medicine 06/04/18 documented as of this encounter
--- OUTSIDE RECORDS SUMMARY | 2025-06-11 08:23 | XMS_ITS | Encounter Summary ---
Author Organization [facility] Prior to 04/26/[address] [place] [address] Care Team Providers Care Third Rail Installer Name Role Phone Oren Roberson MD Primary Care Provider [phone] Encounter Details Date Type Department Care Team Description 10/07/2021 Enterprise Application Architect Report Medical Records [address] [place] [address] Abstract, Provider Social History Tobacco Use Types [...] on filedocumented in this encounter Care Teams Third Rail Installer Relationship Specialty Start Date End Date Oren Roberson MD PCP - General Internal Medicine 06/04/18 documented as of this encounter
--- OUTSIDE RECORDS SUMMARY | 2025-06-11 08:23 | XMS_ITS | Encounter Summary ---
Author Organization [facility] Prior to 04/26/2024 Address [address] [place] [address] Care Team Providers Care Manager Communication Name Role Phone Oren Roberson MD Primary Care Provider [phone] Reason for Visit * Reason Onset Date Comments Faxed Refill 08/06/2018 Encounter Details Date Type Department Care Team Description 08/06/2018 Refill Pulmonology - [address] [place] [address] Tru Tang MD Faxed Refill [...] NO Patients current insurance carrier is: Payor: [employer] FFS / Plan: [employer]ARK[employer] / Product Type: MEDICAID RISK documented in this encounter Plan of Treatment Not on file documented as of this encounter Visit Diagnoses Diagnosis Chronic obstructive pulmonary disease, unspecified COPD type (HCC) documented in this encounter Care Teams Manager Communication Relationship Specialty Start Date End Date Oren Roberson MD PCP - General Internal Medicine 06/04/18 documented as of this encounter
--- OUTSIDE RECORDS SUMMARY | 2025-06-11 08:23 | XMS_ITS | Encounter Summary ---
Author Organization [facility] Prior to 04/26/2024 Address [address] [place] [address] Care Team Providers Care Zoning Engineer Name Role Phone Oren Roberson MD Primary Care Provider [phone] Reason for Visit * Reason Onset Date Comments Urinary Frequency/Urgency/Burning 04/25/2019 Encounter Details Date Type Department Care Team Description 04/25/2019 Telephone Internal Medicine - [address], [address] [place] [address] Oren Roberson MD [address] [place] [address] Urinary Frequency/Urgency/Burni ng Social History Tobacco Use [...] Roberson-did offer patient to be seen [facility] Her response was she did not have time to go their. 2nd suggestion was to go to Urgent care - [facility]. documented in this encounter Plan of Treatment Not on file documented as of this encounter Visit Diagnoses Not on filedocumented in this encounter Care Teams Zoning Engineer Relationship Specialty Start Date End Date Oren Roberson MD PCP - General Internal Medicine 06/04/18 documented as of this encounter
--- OUTSIDE RECORDS SUMMARY | 2025-06-11 08:24 | XMS_ITS | Encounter Summary ---
Author Organization [facility] Address [address] [place] [address] [place] [address] Phone Care Team Providers Care Resource Management Specialist Name Role Phone Jonna Long NP Primary Care Provider Referring, Not Required Unavailable Unavaila Angélica Oates MD Unavailable [phone] Mirza Velazquez MD Unavailable [phone] Encounter Details Date Type Department Care Team (Late st Contact Info) Description 06/06/2025 Orders Only [facility] Imaging Department, [facility], Radiography [address] [facility], Floor [address]1 [place] [address] Angélica Vance MD [address] [facility] [place] [address] [email or web address] Social History Tobacco Use Types Packs/Day [...] 2:15 PM EST Administrative Encounter Central Registration, [facility] at [address] [address] Angélica Vance MD [address] [place] [address] [place] [address] [email or web address] 06/16/2025 3:00 PM EST Office Visit Center for Breast Oncology, [facility], [facility] at [address] [address] Angélica Vance MD [address] [place] [address]#[address] [place] [address] [email or web address] 07/11/2025 1:00 PM EST Office Visit [facility] for Breast Oncology, [facility], [facility] 450 [facility], 9th [place] [address] Mirza Velazquez MD [address] [place] [address] [email or web address] documented as of this encounter Results * DXA Outside (No Interpretation) (03/11/2025 12:05 AM EDT) Narrative [facility] - 06/06/2025 11:11 AM EST This study is for PACS storage only and not for interpretation. us Angélica Vance MD IMG OUTSIDE IMAGING W/OUT INTE RPRETATION Final Result [facility] documented in this encounter Visit Diagnoses Not on filedocumented in this encounter Care Teams Resource Management Specialist Relationship Specialty Start Date End Date Jonna Long NP [address] [place] [address] [email or web address] PCP - General 06/04/25 Referring, Not Required Referring Physician 06/04/25 Angélica Vance MD [address] [place] [address] [place] [address] [email or web address] Medical Oncology 06/05/25 Mirza Velazquez MD [address] [place] [address] [email or web address] Surgical Oncology 06/05/25 documented as of this encounter Additional Source Comments The information contained in this document represents components of the legal health record. It is not the complete legal health record.[facility]
--- OUTSIDE RECORDS SUMMARY | 2025-06-11 08:24 | XMS_ITS | Encounter Summary ---
Author Organization [facility] Prior to 04/26/2024 Address [address] [place] [address] Care Team Providers Care Building Admin Name Role Phone Oren Roberson MD Primary Care Provider [phone] Reason for Visit * Reason Comments E-prescribe Rx Request Encounter Details Date Type Department Care Team Description 01/11/2020 Refill Pulmonology - [place] 175 [facility] [address] [place] [address] Larry Myers MD [address] [place] [address] E-prescribe Rx Request Social History [...] NO Patients current insurance carrier is: Payor: [employer] FFS / Plan: [employer] PLAN / Product Type: MEDICAID RISK documented in this encounter Plan of Treatment Not on file documented as of this encounter Visit Diagnoses Diagnosis Chronic obstructive pulmonary disease, unspecified COPD type (HCC) documented in this encounter Care Teams Building Admin Relationship Specialty Start Date End Date Oren Roberson MD PCP - General Internal Medicine 06/04/18 documented as of this encounter
--- OUTSIDE RECORDS SUMMARY | 2025-06-11 08:24 | XMS_ITS | Encounter Summary ---
Author Organization [facility] Address [address] [place] [address] [place] [address] Phone Care Team Providers Care Staple Side Laster Name Role Phone Jonna Long NP Primary Care Provider Referring, Not Required Unavailable Unavaila Angélica Oates MD Unavailable [phone] Mirza Velazquez MD Unavailable [phone] Encounter Details Date Type Department Care Team (Late st Contact Info) Description 06/06/2025 Ancillary Orders DF IMG OUTSIDE IMG 450 [place] [address] Angélica Vance MD [address] [place] [address]#5510 [place] [address] [email or web address] Social History Tobacco Use [...] 2:15 PM EST Administrative Encounter Central Registration, [facility] 300 [facility] [address]rd [place] [address] Angélica Vance MD [address] [place] [address]#1250 [place] [address] [email or web address] 06/16/2025 3:00 PM EST Office Visit [facility], [facility], [facility] 300 [facility] [address] [place] [address] Angélica Vance MD [address] [place] [address]#1250 [place] [address] [email or web address] 07/11/2025 1:00 PM EST Office Visit [facility], [facility], [address], 9th [place] [address] Mirza Velazquez MD [address] [place] [address] [email or web address] documented as of this encounter Results * XR Chest Outside (No Interpretation) (09/12/2024 12:00 AM EDT) Narrative [facility] - 06/06/2025 11:02 AM EST This study is for PACS storage only and not for interpretation. us Angélica Vance MD IMG OUTSIDE IMAGING W/OUT INTE RPRETATION Final Result [facility] documented in this encounter Visit Diagnoses Not on filedocumented in this encounter Care Teams Staple Side Laster Relationship Specialty Start Date End Date Jonna Long NP [address] [place] [address] [email or web address] PCP - General 06/04/25 Referring, Not Required Referring Physician 06/04/25 Angélica Vance MD [address] [place] [address] Cancer [facility] [place] [address] [email or web address] du Medical Oncology 06/05/25 Mirza Velazquez MD [address] [place] [address] [email or web address] Surgical Oncology 06/05/25 documented as of this encounter Additional Source Comments The information contained in this document represents components of the legal health record. It is not the complete legal health record.[facility]
--- OUTSIDE RECORDS SUMMARY | 2025-06-11 08:24 | XMS_ITS | Encounter Summary ---
Author Organization [facility] Address [address] [place] [address] [place] [address] Phone Care Team Providers Care Tire Adjuster Name Role Phone Jonna Long NP Primary Care Provider Referring, Not Required Unavailable Unavaila Angélica Oates MD Unavailable [phone] Mirza Velazquez MD Unavailable [phone] Encounter Details Date Type Department Care Team (Late st Contact Info) Description 06/06/2025 Ancillary Orders DF IMG OUTSIDE IMG 450 [place] [address] Angélica Vance MD [address] [place] [address]#9140 [place] [address] [email or web address] Social History Tobacco Use Types Packs/Day Years [...] 2:15 PM EST Administrative Encounter Central Registration, [facility] 300 [facility] 3rd [place] [address] Angélica Vance MD [address] [place] [address]#1250 [place] [address] [email or web address] 06/16/2025 3:00 PM EST Office Visit [facility] for [facility], [facility], [facility] 300 [facility] 4th [place] [address] Angélica Vance MD [address] [place] [address]#1250 [place] [address] [email or web address] 07/11/2025 1:00 PM EST Office Visit [facility], [facility], [address], 9th [place] [address] Mirza Velazquez MD [address] [place] [address] [email or web address] documented as of this encounter Results * CT Chest Outside (No Interpretation) (12/31/2024 12:00 AM EDT) Narrative [facility]L_[facility] - 06/06/2025 10:54 AM EST This study is for PACS storage only and not for interpretation. us Angélica Vance MD IMG OUTSIDE IMAGING W/OUT INTE RPRETATION Final Result [facility] documented in this encounter Visit Diagnoses Not on filedocumented in this encounter Care Teams Tire Adjuster Relationship Specialty Start Date End Date Jonna Long NP [address] [place] [address] [email or web address] PCP - General 06/04/25 Referring, Not Required Referring Physician 06/04/25 Angélica Vance MD [address] [place] [address] Cancer [facility] [place] [address] [email or web address] Medical Oncology 06/05/25 Mirza Velazquez MD [address] [place] [address] [email or web address] Surgical Oncology 06/05/25 documented as of this encounter Additional Source Comments The information contained in this document represents components of the legal health record. It is not the complete legal health record.[facility]
--- OUTSIDE RECORDS SUMMARY | 2025-06-11 08:24 | XMS_ITS | Encounter Summary ---
Author Organization [facility] Address [address] [place] [address] [place] [address] Phone Care Team Providers Care Schedule Maker Name Role Phone Jonna Long NP Primary Care Provider Referring, Not Required Unavailable Unavaila Angélica Oates MD Unavailable [phone] Mirza Velazquez MD Unavailable [phone] Encounter Details Date Type Department Care Team (Late st Contact Info) Description 06/06/2025 Ancillary Orders DF IMG OUTSIDE IMG 450 [place] [address] Angélica Vance MD [address] [place] [address]#1870 [place] [address] [email or web address] Social History Tobacco Use Types Packs/Day Years [...] 2:15 PM EST Administrative Encounter Central Registration, [facility] 300 [facility] 3rd [place] [address] Angélica Vance MD [address] [place] [address]#1250 [place] [address] [email or web address] 06/16/2025 3:00 PM EST Office Visit [facility] for [facility], [facility], [facility] 300 [facility] [address]th [place] [address] Angélica Vance MD [address] [place] [address]#[address]50 [place] [address] [email or web address] 07/11/2025 1:00 PM EST Office Visit [facility], [facility], [address], 9th [place] [address] Mirza Velazquez MD [address] [place] [address] [email or web address] documented as of this encounter Results * CT Chest Outside (No Interpretation) (10/07/2021 12:00 AM EDT) Narrative MERYL_[facility] - 06/06/2025 11:05 AM EST This study is for PACS storage only and not for interpretation. us Angélica Vance MD IMG OUTSIDE IMAGING W/OUT INTE RPRETATION Final Result [facility] documented in this encounter Visit Diagnoses Not on filedocumented in this encounter Care Teams Schedule Maker Relationship Specialty Start Date End Date Jonna Long NP [address] [place] [address] [email or web address] PCP - General 06/04/25 Referring, Not Required Referring Physician 06/04/25 Angélica Vance MD [address] [place] [address] Cancer [facility] [place] [address] [email or web address] Medical Oncology 06/05/25 Mirza Velazquez MD [address] [place] [address] [email or web address] Surgical Oncology 06/05/25 documented as of this encounter Additional Source Comments The information contained in this document represents components of the legal health record. It is not the complete legal health record.[facility]
--- OUTSIDE RECORDS SUMMARY | 2025-06-11 08:24 | XMS_ITS | Encounter Summary ---
Author Organization [facility] Address [address] [place] [address] [place] [address] Phone Care Team Providers Care Lab Aid Name Role Phone Jonna Long NP Primary Care Provider Referring, Not Required Unavailable Unavaila Angélica Oates MD Unavailable [phone] Mirza Velazquez MD Unavailable [phone] Encounter Details Date Type Department Care Team (Late st Contact Info) Description 06/06/2025 Ancillary Orders DF IMG OUTSIDE IMG 450 [place] [address] Angélica Vance MD [address] [place] [address]#2570 [place] [address] [email or web address] Social History Tobacco [...] PM EST Administrative Encounter Central Registration, [facility] 300 [facility] 3rd [place] [address] Angélica Vance MD [address] [place] [address]#1250 [place] [address] [email or web address] 06/16/2025 3:00 PM EST Office Visit [facility] for Breast [facility], [facility], [facility] 300 [facility] [address]th [place] [address] Angélica Vance MD [address] [place] [address]#1250 [place] [address] [email or web address] 07/11/2025 1:00 PM EST Office Visit [facility], [facility], [address], 9th [place] [address] Mirza Velazquez MD [address] [place] [address] [email or web address] documented as of this encounter Results * CT Chest Outside (No Interpretation) (09/14/2024 12:00 AM EDT) Narrative [facility] - 06/06/2025 11:01 AM EST This study is for PACS storage only and not for interpretation. us Angélica Vance MD IMG OUTSIDE IMAGING W/OUT INTE RPRETATION Final Result [facility] documented in this encounter Visit Diagnoses Not on filedocumented in this encounter Care Teams Lab Aid Relationship Specialty Start Date End Date Jonna Long NP [address] [place] [address] [email or web address] PCP - General 06/04/25 Referring, Not Required Referring Physician 06/04/25 Angélica Vance MD [address] [place] [address] Cancer [facility] [place] [address] [email or web address]. du Medical Oncology 06/05/25 Mirza Velazquez MD [address] [place] [address] [email or web address] Surgical Oncology 06/05/25 documented as of this encounter Additional Source Comments The information contained in this document represents components of the legal health record. It is not the complete legal health record.[facility]
--- OUTSIDE RECORDS SUMMARY | 2025-06-11 08:24 | XMS_ITS | Encounter Summary ---
Author Organization [facility] Prior to 04/26/[address] [place] [address] Care Team Providers Care Vibration Technician Name Role Phone Oren Roberson MD Primary Care Provider [phone] Reason for Visit * Reason Onset Date Comments refill request 03/03/2020 Encounter Details Date Type Department Care Team Description 03/03/2020 Refill Pulmonology - [place] 175 [facility] [address] [place] [address] Larry Myers MD [address] [place] [id number] refill request Social History Tobacco Use Types [...] (HCC) documented in this encounter Care Teams Vibration Technician Relationship Specialty Start Date End Date Oren Roberson MD PCP - General Internal Medicine 06/04/18 documented as of this encounter
--- OUTSIDE RECORDS SUMMARY | 2025-06-11 08:24 | XMS_ITS | Encounter Summary ---
Author Organization [facility] Address [address] [place] [address] [place] [address] Phone Care Team Providers Care Director Of Assessment Name Role Phone Jonna Long NP Primary Care Provider Referring, Not Required Unavailable Unavaila Angélica Oates MD Unavailable [phone] Mirza Velazquez MD Unavailable [phone] Encounter Details Date Type Department Care Team (Late st Contact Info) Description 06/09/2025 Ancillary Orders DF IMG OUTSIDE IMG 450 [place] [address] Angélica Vance MD [address] [place] [address] Cancer [facility] [place] [address] [email or web address] Social History Tobacco Use Types Packs/Day Years [...] Encounter Central Registration, [facility] at [address] [address] Angélica Vance MD [address] [place] [address]#2306 [place] [address] [email or web address] 06/16/2025 3:00 PM EST Office Visit [facility] for [facility], [facility], [facility] at [address] [address] Angélica Vance MD [address] [place], [place] [address] [place] [address] [email or web address] 07/11/2025 1:00 PM EST Office Visit [facility] for Breast [facility], [facility], [facility] Cancer [place] [address] [facility], 9th [place] [address] Mirza Velazquez MD [address] [place] [address] [email or web address] documented as of this encounter Results * XR Chest Outside (No Interpretation) (09/10/2024 12:05 AM EDT) [facility]ative [facility] 06/09/[facility] 1:46 PM EST This study is for PACS storage only and not for interpretation. us Angélica Vance MD IMG OUTSIDE IMAGING W/OUT INTE RPRETATION Final Result [facility] documented in this encounter Visit Diagnoses Not on filedocumented in this encounter Care Teams Director Of Assessment Relationship Specialty Start Date End Date Jonna Long NP [address] [place] [address] [email or web address] PCP - General 06/04/25 Referring, Not Required Referring Physician 06/04/25 Angélica Vance MD [address] [place] [address]#1250 [place] [address] [email or web address] Medical Oncology 06/05/25 Mirza Velazquez MD [address] [place] [address] [email or web address] Surgical Oncology 06/05/25 documented as of this encounter Additional Source Comments The information contained in this document represents components of the legal health record. It is not the complete legal health record.[facility]
--- OUTSIDE RECORDS SUMMARY | 2025-06-11 08:24 | XMS_ITS | Encounter Summary ---
Author Organization [facility] Address [address] [place] [address] [place] [address] Phone Care Team Providers Care Box Strapper Name Role Phone Jonna Long NP Primary Care Provider Referring, Not Required Unavailable Unavaila Angélica Oates MD Unavailable [phone] Mirza Velazquez MD Unavailable [phone] Encounter Details Date Type Department Care Team (Late st Contact Info) Description 06/06/2025 Ancillary Orders DF IMG OUTSIDE IMG 450 [place] [address] Angélica Vance MD [address] [place] [address]#4560 [place] [address] [email or web address] Social History Tobacco Use Types [...] 2:15 PM EST Administrative Encounter Central Registration, [facility] 300 [facility] 3rd [place] [address] Angélica Vance MD [address] [place] [address]#1250 [place] [address] [email or web address] 06/16/2025 3:00 PM EST Office Visit [facility] for Breast [facility], [facility], [facility] 300 [facility] 4th [place] [address] Angélica Vance MD [address] [place] [address]#1250 [place] [address] [email or web address] 07/11/2025 1:00 PM EST Office Visit [facility] for Breast [facility], [facility], [address], 9th [place] [address] Mirza Velazquez MD [address] [place] [address] [email or web address] documented as of this encounter Results * CT Chest Outside (No Interpretation) (09/10/2024 12:00 AM EDT) Narrative [facility]L_[facility] - 06/06/2025 11:03 AM EST This study is for PACS storage only and not for interpretation. us Angélica Vance MD IMG OUTSIDE IMAGING W/OUT INTE RPRETATION Final Result [facility] documented in this encounter Visit Diagnoses Not on filedocumented in this encounter Care Teams Box Strapper Relationship Specialty Start Date End Date Jonna Long NP [address] [place] [address] [email or web address] PCP - General 06/04/25 Referring, Not Required Referring Physician 06/04/25 Angélica Vance MD [address] [place] [address] Cancer [facility] [place] [address] [email or web address]. du Medical Oncology 06/05/25 Mirza Velazquez MD [address] [place] [address] [email or web address] Surgical Oncology 06/05/25 documented as of this encounter Additional Source Comments The information contained in this document represents components of the legal health record. It is not the complete legal health record.[facility]
--- OUTSIDE RECORDS SUMMARY | 2025-06-11 08:24 | XMS_ITS | Encounter Summary ---
Author Organization [facility] Address [address] [place] [address] [place] [address] Phone Care Team Providers Care Baker Pie Name Role Phone Jonna Long NP Primary Care Provider Referring, Not Required Unavailable Unavaila Angélica Oates MD Unavailable [phone] Mirza Velazquez MD Unavailable [phone] Encounter Details Date Type Department Care Team (Late st Contact Info) Description 06/06/2025 Ancillary Orders DF IMG OUTSIDE IMG 450 [place] [address] Angélica Vance MD [address] [place] [address]#6930 [place] [address] [email or web address] Social History Tobacco Use Types Packs/Day Years [...] 2:15 PM EST Administrative Encounter Central Registration, [facility] 300 [facility] 3rd [place] [address] Angélica Vance MD [address] [place] [address]#1250 [place] [address] [email or web address] 06/16/2025 3:00 PM EST Office Visit Center for Breast [facility]cology, [facility], [facility] 300 [facility] 4th [place] [address] Angélica Vance MD [address] [place] [address]#1250 [place] [address] [email or web address] 07/11/2025 1:00 PM EST Office Visit [facility], [facility], [address], 9th [place] [address] Mirza Velazquez MD [address] [place] [address] [email or web address] documented as of this encounter Results * XR Chest Outside (No Interpretation) (09/16/2024 12:05 AM EDT) Narrative MERYL_[facility] - 06/06/2025 11:04 AM EST This study is for PACS storage only and not for interpretation. us Angélica Vance MD IMG OUTSIDE IMAGING W/OUT INTE RPRETATION Final Result [facility] documented in this encounter Visit Diagnoses Not on filedocumented in this encounter Care Teams Baker Pie Relationship Specialty Start Date End Date Jonna Long NP [address] [place] [address] [email or web address] PCP - General 06/04/25 Referring, Not Required Referring Physician 06/04/25 Angélica Vance MD [address] [place] [address] Cancer [facility] [place] [address] [email or web address] Medical Oncology 06/05/25 Mirza Velazquez MD [address] [place] [address] [email or web address] Surgical Oncology 06/05/25 documented as of this encounter Additional Source Comments The information contained in this document represents components of the legal health record. It is not the complete legal health record.[facility]
--- OUTSIDE RECORDS SUMMARY | 2025-06-11 08:24 | XMS_ITS | Clinical Summary ---
Author Organization [facility] Address [address] [place] [address] [place] [address] Phone Care Team Providers Care Gum Sprayer Name Role Phone Jonna Long NP Primary Care Provider Referring, Not Required Unavailable Unavaila Angélica Oates MD Unavailable [phone] Mirza Velazquez MD Unavailable [phone] Encounters Date Type Department Care Team Description 06/09/2025 Transcribe Orders [facility]via [facility] Imaging Department, [facility], Radiography [address] [facility], Floor L1 [place] [address] Angélica Vance MD 06/09/2025 Ancillary Orders DF IMG OUTSIDE IMG 450 [place] [address] Angélica Vance MD 06/06/2025 Orders Only Elvia Lank Imaging Department, [facility], Radiography [address] [facility], Floor L1 [place] [address] Angélica Vance MD 06/06/2025 Ancillary Orders DF IMG OUTSIDE IMG 450 [place] [address] Angélica Vance MD 06/06/2025 Ancillary Orders DF IMG OUTSIDE IMG 450 [place] [address] Angélica Vance MD 06/06/2025 Ancillary Orders DF IMG OUTSIDE IMG 450 [place] [address] Angélica Vance MD 06/06/2025 Ancillary Orders DF IMG OUTSIDE IMG [address] [place] [address] Angélica Vance MD 06/06/2025 Ancillary Orders DF IMG OUTSIDE IMG [address] [place] [address] Angélica Vance MD 06/06/2025 Ancillary Orders DF IMG OUTSIDE IMG [address] [place] [address] Angélica Vance MD 06/06/2025 Ancillary Orders DF IMG OUTSIDE IMG [address] [place] [address] Angélica Vance MD 06/06/2025 Ancillary Orders DF IMG OUTSIDE IMG [address] [place] [address] Angélica Vance MD 06/06/2025 Ancillary Orders DF IMG OUTSIDE IMG [address] [place] [address] Angélica Vance MD 06/06/2025 Ancillary Orders DF IMG OUTSIDE IMG [address] [place] [address] Angélica Vance MD 06/06/2025 Ancillary Orders DF IMG OUTSIDE IMG [address] [place] [address] Angélica Vance MD 06/06/2025 Ancillary Orders DF IMG OUTSIDE IMG [address] [place] [address] Angélica Vance MD 06/06/2025 Ancillary Orders DF IMG OUTSIDE IMG [address] [place] [address] Angélica Vance MD 06/06/2025 Ancillary Orders DF IMG OUTSIDE IMG [address] [place] [address] Angélica Vance MD 06/06/2025 Ancillary Orders DF IMG OUTSIDE IMG [address] [place] [address] Angélica Vance MD 06/06/2025 Ancillary Orders DF IMG OUTSIDE IMG [address] [place] [address] Angélica Vance MD 06/06/2025 Ancillary Orders DF IMG OUTSIDE IMG [address] [place] [address] Angélica Vance MD 06/06/2025 Ancillary Orders DF IMG OUTSIDE IMG [address] [place] [address] Angélica Vance MD 06/06/2025 Ancillary Orders DF IMG OUTSIDE IMG [address] [place] [address] Angélica Vance MD 06/05/2025 Orders Only [facility], [facility] [place] [facility], [facility] [address] [place] [address], 9th [place] [address] Angélica Vance MD Malignant neoplasm of female breast, unspecified estrogen receptor status, unspecified laterality, unspecified site of breast (Primary Dx) 06/02/2025 Ancillary Procedure DF IMG OUTSIDE IMG [address] [place] [address] Angélica Vance MD Arrived 05/26/2025 Ancillary Procedure DF IMG OUTSIDE IMG [address] [place] [address] Angélica Vance MD 04/28/2025 12:05 AM EST Ancillary Procedure DF IMG OUTSIDE IMG [address] [place] [address] Angélica Vance MD 04/28/2025 Ancillary Procedure DF IMG OUTSIDE IMG [address] [place] [address] Angélica Vance MD 04/16/2025 12:05 AM EDT Ancillary Procedure DF IMG OUTSIDE IMG [address] [place] [address] Angélica Vance MD 04/16/2025 Ancillary Procedure DF IMG OUTSIDE IMG [address] [place] [address] Angélica Vance MD from Last 3 Months [...] 2:15 PM EST Administrative Encounter Central Registration, [facility] [place] [address] [facility] 3rd [place] [address] Angélica Vance MD [address] [place] [address] Cancer [facility] - [facility] [place] [address] [email or web address] 06/16/2025 3:00 PM EST Office Visit [facility], [facility], [facility] [place] [address] [facility] 4th [place] [address] Angélica Vance MD 450 [facility] [place] [address] [email or web address] 07/11/2025 1:00 PM EST Office Visit [facility], [facility], [address], 9th [place] [address] Mirza Velazquez MD [address] [place] [address] [email or web address] Health Maintenance Due Date Last Done Comments [...] 04/16/2025 12:00 AM EDT OUTSIDE IMAGING 04/16/2025 from Last 3 Months Results * US Breast Outside (No Interpretation) (06/02/2025 12:00 AM EST) Narrative [facility] - 06/06/2025 10:47 AM EST This study is for PACS storage only and not for interpretation. us Angélica Vance MD IMG OUTSIDE IMAGING W/OUT INTE RPRETATION Final Result [facility] * MRI Breast Outside (No Interpretation) (05/26/2025 12:00 AM EST) Narrative [facility] - 06/06/2025 10:47 AM EST This study is for PACS storage only and not for interpretation. us Angélica Vance MD IMG OUTSIDE IMAGING W/OUT INTE RPRETATION Final Result Performing Organization Address [facility] Phone Number [facility] * US Breast Outside (No Interpretation) (04/28/2025 12:05 AM EST) Narrative [facility] - 06/06/2025 10:51 AM EST This study is for PACS storage only and not for interpretation. us Angélica ROSENG OUTSIDE IMAGING W/OUT INTE RPRETATION Final Result Performing Organization Address [facility] Phone Number [facility] * Outside Procedure (04/28/2025) us Scanning Interface Provider PROCEDURE/MINOR SURG ICAL PERFORMABLES Final Result * Mammogram Outside (No Interpretation) (04/28/2025 12:00 AM EST) Narrative [facility] - 06/06/2025 10:51 AM EST This study is for PACS storage only and not for interpretation. us Angélica ROSENG OUTSIDE IMAGING W/OUT INTE RPRETATION Final Result Performing Organization Address [facility] Phone Number [facility] * Outside Lab (Non-MGB) (04/24/2025) us Scanning Interface Provider LAB BLOOD BKR ORDERA BLES Final Result * Mammogram Outside (No Interpretation) (04/16/2025 12:05 AM EDT) Narrative [facility] - 06/06/2025 10:52 AM EST This study is for PACS storage only and not for interpretation. us Angélica ROSENG OUTSIDE IMAGING W/OUT INTE RPRETATION Final Result [facility] * Outside Imaging Report Only (04/16/2025) us Scanning Interface Provider IMG XR CHEST Lois l Result * US Breast Outside (No Interpretation) (04/16/2025 12:00 AM EDT) Narrative [facility] - 06/06/2025 10:52 AM EST This study is for PACS storage only and not for interpretation. us Angélica Vance MD IMG OUTSIDE IMAGING W/OUT INTE RPRETATION Final Result Performing Organization Address City/[facility]/ZIP Co de Phone Number [facility] from Last 3 Months Insurance [facility] MEDICARE PPO BLUE REPLACEMENT [facility] MED[facility] PPO BLUE REPLACEMENT [facility] MED[facility] PPO BLUE REPLACEMENT [facility] MED[facility] PPO BLUE REPLACEMENT [facility] MEDIC[facility] PPO BLUE REPLACEMENT [place] BL[place] REPLACEMENT Care Teams Gum Sprayer Relationship Specialty Start Date End Date Jonna Long NP [address] [place] [address] [email or web address] PCP - General 06/04/25 Referring, Not Required Referring Physician 06/04/25 Angélica Vance MD [address] [place] [address] Cancer [facility] [place] [address] [email or web address] Medical Oncology 06/05/25 Mirza Velazquez MD [address] [place] [address] [email or web address] Surgical Oncology 06/05/25 Additional Source Comments The information contained in this document represents components of the legal health record. It is not the complete legal health record.[facility]
--- OUTSIDE RECORDS SUMMARY | 2025-06-11 08:24 | XMS_ITS | Encounter Summary ---
Author Organization [facility] Address [address] [place] [address] [place] [address] Phone Care Team Providers Care Respiratory Coordinator Name Role Phone Jonna Long NP Primary Care Provider Referring, Not Required Unavailable Unavaila Angélica Oates MD Unavailable [phone] Mirza Velazquez MD Unavailable [phone] Encounter Details Date Type Department Care Team (Late st Contact Info) Description 06/06/2025 Ancillary Orders DF IMG OUTSIDE IMG 450 [place] [address] Angélica Vance MD [address] [place] [address]#[address] [place] [address] [email or web address] Social History Tobacco Use Types Packs/Day [...] 2:15 PM EST Administrative Encounter Central Registration, [facility] [address] [facility] 3rd [place] [address] Angélica Vance MD [address] [place] [address]#1250 [place] [address] [email or web address] 06/16/2025 3:00 PM EST Office Visit [facility], [facility], [facility] [address] [facility] 4th [place] [address] Angélica Vance MD [address] [place] [address]#1250 [place] [address] [email or web address] 07/11/2025 1:00 PM EST Office Visit [facility], [facility], [address], 9th [place] [address] Mirza Velazquez MD [address] [place] [address] [email or web address] documented as of this encounter Results * US Breast Outside (No Interpretation) (06/02/2025 12:00 AM EST) Narrative [facility] - 06/06/2025 10:47 AM EST This study is for PACS storage only and not for interpretation. us Angélica Vance MD IMG OUTSIDE IMAGING W/OUT INTE RPRETATION Final Result [facility] documented in this encounter Visit Diagnoses Not on filedocumented in this encounter Care Teams Respiratory Coordinator Relationship Specialty Start Date End Date Jonna Long NP [address] [place] [address] [email or web address] PCP - General 06/04/25 Referring, Not Required Referring Physician 06/04/25 Angélica Vance MD [address] [place] [address] Cancer [facility] [place] [address] [email or web address] du Medical Oncology 06/05/25 Mirza Velazquez MD [address] [place] [address] [email or web address] Surgical Oncology 06/05/25 documented as of this encounter Additional Source Comments The information contained in this document represents components of the legal health record. It is not the complete legal health record.[facility]
--- OUTSIDE RECORDS SUMMARY | 2025-06-11 08:24 | XMS_ITS | Encounter Summary ---
Author Organization [facility] Address [address] [place] [address] [place] [address] Phone Care Team Providers Care Chiropractor Assistant Name Role Phone Jonna Long NP Primary Care Provider Referring, Not Required Unavailable Unavaila Angélica Oates MD Unavailable [phone] Mirza Velazquez MD Unavailable [phone] Encounter Details Date Type Department Care Team (Late st Contact Info) Description 06/06/2025 Ancillary Orders DF IMG OUTSIDE IMG 450 [place] [address] Angélica Vance MD [address] [place] [address]#[address] [place] [address] [email or web address] Social History Tobacco Use Types Packs/Day [...] Encounter Central Registration, [facility] 300 [facility] 3rd [place] [address] Angélica Vance MD [address] [place] [address]#1250 [place] [address] [email or web address] 06/16/2025 3:00 PM EST Office Visit [facility], [facility], [facility] [address] [facility] [address]th [place] [address] Angélica Vance MD [address] [place] [address]#12[address] [place] [address] [email or web address] 07/11/2025 1:00 PM EST Office Visit [facility], [facility], [address], 9th [place] [address] Mirza Velazquez MD [address] [place] [address] [email or web address] documented as of this encounter Results * CT Chest Outside (No Interpretation) (10/17/2022 12:05 AM EDT) Narrative [facility] - 06/06/2025 11:04 AM EST This study is for PACS storage only and not for interpretation. us Angélica Vance MD IMG OUTSIDE IMAGING W/OUT INTE RPRETATION Final Result [facility] documented in this encounter Visit Diagnoses Not on filedocumented in this encounter Care Teams Chiropractor Assistant Relationship Specialty Start Date End Date Jonna Long NP [address] [place] [address] [email or web address] PCP - General 06/04/25 Referring, Not Required Referring Physician 06/04/25 Angélica Vance MD [address] [place] [address] Cancer [facility] [place] [address] [email or web address]. du Medical Oncology 06/05/25 Mirza Velazquez MD [address] [place] [address] [email or web address] Surgical Oncology 06/05/25 documented as of this encounter Additional Source Comments The information contained in this document represents components of the legal health record. It is not the complete legal health record.[facility]
--- OUTSIDE RECORDS SUMMARY | 2025-06-11 08:24 | XMS_ITS | Encounter Summary ---
Author Organization [facility] Address [address] [place] [address] [place] [address] Phone Care Team Providers Care Stockroom Keeper Name Role Phone Jonna Long NP Primary Care Provider Referring, Not Required Unavailable Unavaila Angélica Oates MD Unavailable [phone] Mirza Velazquez MD Unavailable [phone] Encounter Details Date Type Department Care Team (Late st Contact Info) Description 06/06/2025 Ancillary Orders DF IMG OUTSIDE IMG 450 [place] [address] Angélica Vance MD [address] [place] [address]#79[address] [place] [address] [email or web address] Social History Tobacco Use Types Packs/Day Years [...] 2:15 PM EST Administrative Encounter Central Registration, [facility] 300 [facility] 3rd [place] [address] Angélica Vance MD [address] [place] [address]#12[address] [place] [address] [email or web address] 06/16/2025 3:00 PM EST Office Visit [facility], [facility], [facility] [address] [facility] 4th [place] [address] Angélica Vance MD [address] [place] [address]#12[address] [place] [address] [email or web address] 07/11/2025 1:00 PM EST Office Visit [facility], [facility], [address], 9th [place] [address] Mirza Velazquez MD [address] [place] [address] [email or web address] documented as of this encounter Results * US Abdomen Outside (No Interpretation) (09/16/2024 12:00 AM EDT) Narrative [facility] - 06/06/2025 11:00 AM EST This study is for PACS storage only and not for interpretation. us Angélica Vance MD IMG OUTSIDE IMAGING W/OUT INTE RPRETATION Final Result [facility] documented in this encounter Visit Diagnoses Not on filedocumented in this encounter Care Teams Stockroom Keeper Relationship Specialty Start Date End Date Jonna Long NP [address] [place] [address] [email or web address] PCP - General 06/04/25 Referring, Not Required Referring Physician 06/04/25 Angélica Vance MD [address] [place] [address] Cancer [facility] [place] [address] [email or web address] Medical Oncology 06/05/25 Mirza Velazquez MD [address] [place] [address] [email or web address] Surgical Oncology 06/05/25 documented as of this encounter Additional Source Comments The information contained in this document represents components of the legal health record. It is not the complete legal health record.[facility]
--- OUTSIDE RECORDS SUMMARY | 2025-06-11 08:24 | XMS_ITS | Encounter Summary ---
Author Organization [facility] Address [address] [place] [address] [place] [address] Phone Care Team Providers Care Psychology Physician Name Role Phone Jonna Long NP Primary Care Provider Referring, Not Required Unavailable Unavaila Angélica Oates MD Unavailable [phone] Mirza Velazquez MD Unavailable [phone] Encounter Details Date Type Department Care Team (Late st Contact Info) Description 06/06/2025 Ancillary Orders DF IMG OUTSIDE IMG 450 [place] [address] Angélica Vance MD [address] [place] [address]#88[address] [place] [address] [email or web address] Social History Tobacco Use Types [...] 2:15 PM EST Administrative Encounter Central Registration, [facility] 300 [facility] 3rd [place] [address] Angélica Vance MD [address] [place] [address]#[address] [place] [address] [email or web address] 06/16/2025 3:00 PM EST Office Visit [facility], [facility], [facility] 300 [facility] 4[address] [place] [address] Angélica Vance MD [address] [place] [address]#[address] [place] [address] [email or web address] 07/11/2025 1:00 PM EST Office Visit [facility], [facility], [address], 9th [place] [address] Mirza Velazquez MD [address] [place] [address] [email or web address] documented as of this encounter Results * Mammogram Outside (No Interpretation) (03/11/2025 12:00 AM EDT) Narrative [facility] - 06/06/2025 10:53 AM EST This study is for PACS storage only and not for interpretation. us Angélica Vance MD IMG OUTSIDE IMAGING W/OUT INTE RPRETATION Final Result [facility] documented in this encounter Visit Diagnoses Not on filedocumented in this encounter Care Teams Psychology Physician Relationship Specialty Start Date End Date Jonna Long NP [address] [place] [address] [email or web address] PCP - General 06/04/25 Referring, Not Required Referring Physician 06/04/25 Angélica Vance MD [address] [place] [address] Cancer [facility] [place] [address] [email or web address]. du Medical Oncology 06/05/25 Mirza Velazquez MD [address] [place] [address] [email or web address] Surgical Oncology 06/05/25 documented as of this encounter Additional Source Comments The information contained in this document represents components of the legal health record. It is not the complete legal health record.[facility]
--- OUTSIDE RECORDS SUMMARY | 2025-06-11 08:24 | XMS_ITS | Encounter Summary ---
Author Organization [facility] Address [address] [place] [address] [place] [address] Phone Care Team Providers Care Automatic Gluing Machine Operator Name Role Phone Jonna Long NP Primary Care Provider Referring, Not Required Unavailable Unavaila Angélica Oates MD Unavailable [phone] Mirza Velazquez MD Unavailable [phone] Encounter Details Date Type Department Care Team (Late st Contact Info) Description 06/06/2025 Ancillary Orders DF IMG OUTSIDE IMG 450 [place] [address] Angélica Vance MD [address] [place] [address]#[address] [place] [address] [email or web address] Social History Tobacco Use [...] 2:15 PM EST Administrative Encounter Central Registration, [facility] 300 [facility] 3rd [place] [address] Angélica Vance MD [address] [place] [address]#12[address] [place] [address] [email or web address] 06/16/2025 3:00 PM EST Office Visit [facility], [facility], [facility] 300 [facility] 4th [place] [address] Angélica Vance MD [address] [place] [address]#12[address] [place] [address] [email or web address] 07/11/2025 1:00 PM EST Office Visit [facility], [facility], [address], 9th [place] [address] Mirza Velazquez MD [address] [place] [address] [email or web address] documented as of this encounter Results * XR Chest Outside (No Interpretation) (09/18/2024 12:00 AM EDT) Narrative [facility] - 06/06/2025 11:00 AM EST This study is for PACS storage only and not for interpretation. us Angélica Vance MD IMG OUTSIDE IMAGING W/OUT INTE RPRETATION Final Result [facility] documented in this encounter Visit Diagnoses Not on filedocumented in this encounter Care Teams Automatic Gluing Machine Operator Relationship Specialty Start Date End Date Jonna Long NP [address] [place] [address] [email or web address] PCP - General 06/04/25 Referring, Not Required Referring Physician 06/04/25 Angélica Vance MD [address] [place] [address] Cancer [facility]#[address] [place] [address] [email or web address] du Medical Oncology 06/05/25 Mirza Velazquez MD [address] [place] [address] [email or web address] Surgical Oncology 06/05/25 documented as of this encounter Additional Source Comments The information contained in this document represents components of the legal health record. It is not the complete legal health record.[facility]
--- OUTSIDE RECORDS SUMMARY | 2025-06-11 08:24 | XMS_ITS | Encounter Summary ---
Author Organization [facility] Address [address] [place] [address] [place] [address] Phone Care Team Providers Care Adjunct Instructor Name Role Phone Jonna Long NP Primary Care Provider Referring, Not Required Unavailable Unavaila Angélica Oates MD Unavailable [phone] Mirza Velazquez MD Unavailable [phone] Encounter Details Date Type Department Care Team (Late st Contact Info) Description 06/06/2025 Ancillary Orders DF IMG OUTSIDE IMG [address] [place] [address] Angélica Vance MD [address] [place] [address] [place] [address] [email or web address] Social History Tobacco Use Types Packs/Day [...] Encounter Central Registration, [facility] 300 [facility] 3rd [place] [address] Angélica Vance MD [address] [place] [address]#[address] [place] [address] [email or web address] 06/16/2025 3:00 PM EST Office Visit [facility], [facility], [facility] 300 [facility] 4th [place] [address] Angélica Vance MD [address] [place] [address]#[address] [place] [address] [email or web address] 07/11/2025 1:00 PM EST Office Visit [facility], [facility], [address], 9th [place] [address] Mirza Velazquez MD [address] [place] [address] [email or web address] documented as of this encounter Results * CT Abdomen/Pelvis Outside (No Interpretation) (09/19/2024 12:00 AM EDT) Narrative MERYL_[facility] - 06/06/2025 10:59 AM EST This study is for PACS storage only and not for interpretation. us Angélica Vance MD IMG OUTSIDE IMAGING W/OUT INTE RPRETATION Final Result PERCIPIO_[facility] documented in this encounter Visit Diagnoses Not on filedocumented in this encounter Care Teams Adjunct Instructor Relationship Specialty Start Date End Date Jonna Long NP [address] [place] [address] [email or web address] PCP - General 06/04/25 Referring, Not Required Referring Physician 06/04/25 Angélica Vance MD 450 [facility] Cancer [facility] [place] [address] [email or web address] Medical Oncology 06/05/25 Mirza Velazquez MD [address] [place] [address] [email or web address] Surgical Oncology 06/05/25 documented as of this encounter Additional Source Comments The information contained in this document represents components of the legal health record. It is not the complete legal health record.[facility]
--- OUTSIDE RECORDS SUMMARY | 2025-06-11 08:24 | XMS_ITS | Clinical Summary ---
Author Organization [facility] Address 75 [facility] 7 [place] [address] Care Team Providers Care Sporting Goods Sales Associate Name Role Phone Unavailable Primary Care Provider Unavailabl e Medications Umeclidinium [place] (Incruse Ellipta) 62.5 MCG/ACT aerosol powderIndicatio ns:COPD with hypoxia (CMS/HCC) ([facility]) Inhale 1 Act (62.5 mcg) Once per day. 30 each 5 Active Dulera 100-5 MCG/ACT inhalerIndicati ons:COPD with hypoxia (CMS/HCC) ([facility]) 5 Active ipratropium-alb uterol (Duo-Neb) 0.5-2.5 mg/3 mL nebulizer solutionIndicat ions:COPD with hypoxia (CMS/HCC) ([facility]) INHALE 1 AMPULE USING A [...] to complete this topic Insurance [facility] MEDICARE REPLACEMENT PPO
--- OUTSIDE RECORDS SUMMARY | 2025-06-11 08:24 | XMS_ITS | Encounter Summary ---
Author Organization [facility] Prior to 04/26/2024 Address [address] [place] [address] Care Team Providers Care Harvest Manager Name Role Phone Oren Roberson MD Primary Care Provider [phone] Reason for Visit * Reason Onset Date Comments Faxed Refill 09/02/2019 [facility] Encounter Details Date Type Department Care Team Description 09/02/2019 Refill Internal Medicine - [address], [address] [place] [address] Oren Roberson MD [address] [place] [address] Faxed Refill ([facility]) Social History Tobacco Use Types Packs/Day Years [...] N/A Patients current insurance carrier is: Payor: [email or web address] FFS / Plan: [employer] CARE PLUS PLAN / Product Type: MEDICAID RISK documented in this encounter Plan of Treatment Not on file documented as of this encounter Visit Diagnoses Diagnosis Chronic obstructive pulmonary disease, unspecified COPD type (HCC) documented in this encounter Care Teams Harvest Manager Relationship Specialty Start Date End Date Oren Roberson MD PCP - General Internal Medicine 06/04/18 documented as of this encounter
--- OUTSIDE RECORDS SUMMARY | 2025-06-11 08:24 | XMS_ITS | Encounter Summary ---
Author Organization [facility] Address [address] [place] [address] [place] [address] Phone Care Team Providers Care Special Trackwork Blacksmith Name Role Phone Jonna Long NP Primary Care Provider Referring, Not Required Unavailable Unavaila Angélica Oates MD Unavailable [phone] Mirza Velazquez MD Unavailable [phone] Encounter Details Date Type Department Care Team (Late st Contact Info) Description 06/06/2025 Ancillary Orders DF IMG OUTSIDE IMG [address] [place] [address] Angélica Vance MD [address] [place] [address]#[address] [place] [address] [email or web address] Social History Tobacco Use Types Packs/Day Years [...] 2:15 PM EST Administrative Encounter Central Registration, [facility] 300 [facility] 3rd [place] [address] Angélica Vance MD [address] [place] [address]#[address] [place] [address] [email or web address] 06/16/2025 3:00 PM EST Office Visit [facility], [facility], [facility] 300 [facility] 4th [place] [address] Angélica Vance MD [address] [place] [address]#[address] [place] [address] [email or web address] 07/11/2025 1:00 PM EST Office Visit [facility], [facility], [address], 9th [place] [address] Mirza Velazquez MD [address] [place] [address] [email or web address] documented as of this encounter Results * CT Chest Outside (No Interpretation) (10/17/2022 12:00 AM EDT) Narrative MERYL_[facility] - 06/06/2025 11:04 AM EST This study is for PACS storage only and not for interpretation. us Angélica Vance MD IMG OUTSIDE IMAGING W/OUT INTE RPRETATION Final Result PERCIPIO_[facility] documented in this encounter Visit Diagnoses Not on filedocumented in this encounter Care Teams Special Trackwork Blacksmith Relationship Specialty Start Date End Date Jonna Long NP [address] [place] [address] [email or web address] PCP - General 06/04/25 Referring, Not Required Referring Physician 06/04/25 Angélica Vance MD [address] [place] [address] Cancer [facility] [place] [address] [email or web address] Medical [email or web address] 06/05/25 Mirza Velazquez MD [address] [place] [address] [email or web address] Surgical Oncology 06/05/25 documented as of this encounter Additional Source Comments The information contained in this document represents components of the legal health record. It is not the complete legal health record.[facility]
--- OUTSIDE RECORDS SUMMARY | 2025-06-11 08:24 | XMS_ITS | Encounter Summary ---
Author Organization [facility] Address [address] [place] [address] [place] [address] Phone Care Team Providers Care Career Portals Teacher Name Role Phone Jonna Long NP Primary Care Provider Referring, Not Required Unavailable Unavaila Angélica Oates MD Unavailable [phone] Mirza Velazquez MD Unavailable [phone] Encounter Details Date Type Department Care Team (Late st Contact Info) Description 06/06/2025 Ancillary Orders DF IMG OUTSIDE IMG [address] [place] [address] Angélica Vance MD [address] [place] [address]#[address] [place] [address] [email or web address] Social History Tobacco Use Types Packs/Day Years [...] 2:15 PM EST Administrative Encounter Central Registration, [facility] 300 [facility] 3rd [place] [address] Angélica Vance MD [address] [place] [address]#[address] [place] [address] [email or web address] 06/16/2025 3:00 PM EST Office Visit [facility], [facility], [facility] 300 [facility] 4th [place] [address] Angélica Vance MD [address] [place] [address]#[address] [place] [address] [email or web address] 07/11/2025 1:00 PM EST Office Visit [facility], [facility], [address], 9th [place] [address] Mirza Velazquez MD [address] [place] [address] [email or web address] documented as of this encounter Results * Mammogram Outside (No Interpretation) (04/16/2025 12:05 AM EDT) Narrative MERYL_[facility] - 06/06/2025 10:52 AM EST This study is for PACS storage only and not for interpretation. us Angélica Vance MD IMG OUTSIDE IMAGING W/OUT INTE RPRETATION Final Result PERCIPIO_[facility] documented in this encounter Visit Diagnoses Not on filedocumented in this encounter Care Teams Career Portals Teacher Relationship Specialty Start Date End Date Jonna Long NP [address] [place] [address] [email or web address] PCP - General 06/04/25 Referring, Not Required Referring Physician 06/04/25 Angélica Vance MD [address] [place] [address] Cancer [facility] [place] [address] [email or web address] Medical Oncology 06/05/25 Mirza Velazquez MD [address] [place] [address] [email or web address] Surgical Oncology 06/05/25 documented as of this encounter Additional Source Comments The information contained in this document represents components of the legal health record. It is not the complete legal health record.[facility]
--- OUTSIDE RECORDS SUMMARY | 2025-06-11 08:24 | XMS_ITS | Encounter Summary ---
Author Organization [facility] Address [address] [place] [address] [place] [address] Phone Care Team Providers Care Farm Equipment Engineer Name Role Phone Jonna Long NP Primary Care Provider Referring, Not Required Unavailable Unavaila Angélica Oates MD Unavailable [phone] Mirza Velazquez MD Unavailable [phone] Encounter Details Date Type Department Care Team (Late st Contact Info) Description 06/06/2025 Ancillary Orders DF IMG OUTSIDE IMG [address] [place] [address] Angélica Vance MD [address] [place] [address]#[address] [place] [address] [email or web address] Social History Tobacco Use [...] 2:15 PM EST Administrative Encounter Central Registration, [facility] 300 [facility] 3rd [place] [address] Angélica Vance MD [address] [place] [address]#[address] [place] [address] [email or web address] 06/16/2025 3:00 PM EST Office Visit [facility], [facility], [facility] 300 [facility] 4th [place] [address] Angélica Vance MD [address] [place] [address]#[address] [place] [address] [email or web address] 07/11/2025 1:00 PM EST Office Visit [facility], [facility], [address], 9th [place] [address] Mirza Velazquez MD [address] [place] [address] [email or web address] documented as of this encounter Results * CT Abdomen/Pelvis Outside (No Interpretation) (12/31/2024 12:05 AM EDT) Narrative MERYL_[facility] - 06/06/2025 10:57 AM EST This study is for PACS storage only and not for interpretation. us Angélica Vance MD IMG OUTSIDE IMAGING W/OUT INTE RPRETATION Final Result PERCIPIO_D[facility] documented in this encounter Visit Diagnoses Not on filedocumented in this encounter Care Teams Farm Equipment Engineer Relationship Specialty Start Date End Date Jonna Long NP [address] [place] [address] [email or web address] PCP - General 06/04/25 Referring, Not Required Referring Physician 06/04/25 Angélica Vance MD 450 [facility] [place] [address] [email or web address] Medical Oncology 06/05/25 Mirza Velazquez MD [address] [place] [address] [email or web address] Surgical Oncology 06/05/25 documented as of this encounter Additional Source Comments The information contained in this document represents components of the legal health record. It is not the complete legal health record.[facility]
--- OUTSIDE RECORDS SUMMARY | 2025-06-11 08:24 | XMS_ITS | Encounter Summary ---
Author Organization [facility] Address [address] [place] [address] [place] [address] Phone Care Team Providers Care Hackler Doll Wigs Name Role Phone Jonna Long NP Primary Care Provider Referring, Not Required Unavailable Unavaila Angélica Oates MD Unavailable [phone] Mirza Velazquez MD Unavailable [phone] Encounter Details Date Type Department Care Team (Late st Contact Info) Description 06/09/2025 Transcribe Orders Elvia Lank Imaging Department, [facility], Radiography 450 [facility], Floor [address]1 [place] [address] Angélica Vance MD 450 [facility] [place] [address] [email or web address] Social History Tobacco Use Types Packs/Day [...] 2:15 PM EST Administrative Encounter Central Registration, [facility] at [address] [address] Angélica Vance MD [address] [place] [address]#4617 [place] [address] [email or web address] 06/16/2025 3:00 PM EST Office Visit [facility] for [facility], [facility], [facility] at [address] [address] Angélica Vance MD [address] [place], [place] [address]key [place] [place] [address] [email or web address] 07/11/2025 1:00 PM EST Office Visit [facility], [facility], [facility] 450 [facility], 9th [place] [address] Mirza Velazquez MD [address] [place] [address] [email or web address] documented as of this encounter Results * CT Chest Outside (No Interpretation) (09/10/2024 12:10 AM EDT) Narrative KATIE - 06/09/2025 1:52 PM EST This study is for PACS storage only and not for interpretation. us Angélica Vance MD IMG OUTSIDE IMAGING W/OUT INTE RPRETATION Final Result Performing Organization Address City/State/[facility] Co de Phone Number [facility]DRA_[facility] documented in this encounter Visit Diagnoses Not on filedocumented in this encounter Care Teams Hackler Doll Wigs Relationship Specialty Start Date End Date Jonna Long NP [address] [place] [address] [email or web address] PCP - General 06/04/25 Referring, Not Required Referring Physician 06/04/25 Angélica Vance MD [address] [place] [address]#[address] [place] [address] [email or web address] Medical Oncology 06/05/25 Mirza Velazquez MD [address] [place] [address] [email or web address] Surgical Oncology 06/05/25 documented as of this encounter Additional Source Comments The information contained in this document represents components of the legal health record. It is not the complete legal health record.[facility]
--- OUTSIDE RECORDS SUMMARY | 2025-06-11 08:24 | XMS_ITS | Encounter Summary ---
Author Organization [facility] Prior to 04/26/2024 Address [address] [place] [address] Care Team Providers Care Coating Machine Operator Name Role Phone Oren Roberson MD Primary Care Provider Encounter Details Date Type Department Care Team Description 03/16/2020 Refill Internal Medicine - [address], [address] [place] [address] Oren Roberson MD [address] [place] [address] Social History Tobacco Use Types Packs/Day Years [...] on filedocumented in this encounter Care Teams Coating Machine Operator Relationship Specialty Start Date End Date Oren Roberson MD PCP - General Internal Medicine 06/04/18 documented as of this encounter
--- OUTSIDE RECORDS SUMMARY | 2025-06-11 08:25 | XMS_ITS | Encounter Summary ---
Author Organization [facility] Prior to 04/26/2024 Address [address] [place] [address] Care Team Providers Care Socket Puller Name Role Phone Venus Hulrey MD Primary Care Provider UnavailRosalind Alclaa MD Primary Care Provider Unavailab Oren Butler MD Primary Care Provider Encounter Details Date Type Department Care Team Description 06/08/2017 Transfer Records Medical Records [address] [place] [address] Abstract, Provider Social History Tobacco Use Types [...] on filedocumented in this encounter Care Teams Socket Puller Relationship Specialty Start Date End Date Venus Hurley MD PCP - General Internal Medicine 06/05/17 11/27/17 Rosalind Hightower MD PCP - General Internal Medicine 11/28/17 06/03/18 Oren Roberson MD PCP - General Internal Medicine 06/04/18 documented as of this encounter
--- OUTSIDE RECORDS SUMMARY | 2025-06-11 08:25 | XMS_ITS | Encounter Summary ---
Author Organization [facility] Address [address] [place] [address] [place] [address] Phone Care Team Providers Care Farmworker Fryer Farm Name Role Phone Jonna Long NP Primary Care Provider Referring, Not Required Unavailable Unavaila Angélica Oates MD Unavailable [phone] Mirza Velazquez MD Unavailable [phone] Encounter Details Date Type Department Care Team (Late st Contact Info) Description 06/06/2025 Ancillary Orders DF IMG OUTSIDE IMG [address] [place] [address] Angélica Vance MD [address] [place] [address]#[address] [place] [address] [email or web address] Social History Tobacco Use [...] 2:15 PM EST Administrative Encounter Central Registration, [facility] 300 [facility] 3rd [place] [address] Angélica Vance MD [address] [place] [address]#[address] [place] [address] [email or web address] 06/16/2025 3:00 PM EST Office Visit [facility] for Breast [facility], [facility], [facility] 300 [facility] 4th [place] [address] Angélica Vance MD [address] [place] [address]#[address] [place] [address] [email or web address] 07/11/2025 1:00 PM EST Office Visit [facility], [facility], [address], 9th [place] [address] Mirza Velazquez MD [address] [place] [address] [email or web address] documented as of this encounter Results * MRI Breast Outside (No Interpretation) (05/26/2025 12:00 AM EST) Narrative MERYL_[facility] - 06/06/2025 10:47 AM EST This study is for PACS storage only and not for interpretation. us Angélica Vance MD IMG OUTSIDE IMAGING W/OUT INTE RPRETATION Final Result [facility]IO_[facility] documented in this encounter Visit Diagnoses Not on filedocumented in this encounter Care Teams Farmworker Fryer Farm Relationship Specialty Start Date End Date Jonna Long NP [address] [place] [address] [email or web address] PCP - General 06/04/25 Referring, Not Required Referring Physician 06/04/25 Angélica Vance MD [address] [place] [address] [facility] [place] [address] [email or web address] Medical Oncology 06/05/25 Mirza Velazquez MD [address] [place] [address] [email or web address] Surgical Oncology 06/05/25 documented as of this encounter Additional Source Comments The information contained in this document represents components of the legal health record. It is not the complete legal health record.[facility]
--- OUTSIDE RECORDS SUMMARY | 2025-06-11 08:25 | XMS_ITS | Encounter Summary ---
Author Organization [facility] Address [address] [place] [address] [place] [address] Phone Care Team Providers Care Shearing Shed Worker Name Role Phone Jonna Long NP Primary Care Provider Referring, Not Required Unavailable Unavaila Angélica Oates MD Unavailable [phone] Mirza Velazquez MD Unavailable [phone] Encounter Details Date Type Department Care Team (Late st Contact Info) Description 06/06/2025 Ancillary Orders DF IMG OUTSIDE IMG [address] [place] [address] Angélica Vance MD [address] [place] [address] [place] [address] [email or web address] Social History Tobacco Use [...] 2:15 PM EST Administrative Encounter Central Registration, [facility] [address] [facility] [address] [place] [address] Angélica Vance MD [address] [place] [address] [place] [address] [email or web address] 06/16/2025 3:00 PM EST Office Visit [facility], [facility], [facility] [address] [facility] [address] [place] [address] Angélica Vance MD [address] [place] [address] [place] [address] [email or web address] 07/11/2025 1:00 PM EST Office Visit [facility], [facility], [address], 9th [place] [address] Mirza Velazquez MD [address] [place] [phone] [email or web address] documented as of this encounter Results * US Breast Outside (No Interpretation) (04/16/2025 12:00 AM EDT) Narrative [facility] - 06/06/2025 10:52 AM EST This study is for PACS storage only and not for interpretation. us Angélica Vance MD IMG OUTSIDE IMAGING W/OUT INTE RPRETATION Final Result [facility] documented in this encounter Visit Diagnoses Not on filedocumented in this encounter Care Teams Shearing Shed Worker Relationship Specialty Start Date End Date Jonna Long NP [address] [place] [phone] [email or web address] PCP - General 06/04/25 Referring, Not Required Referring Physician 06/04/25 Angélica Vance MD [address] [place] [address] Cancer [facility] [place] [address] [email or web address] 06/05/25 Mirza Velazquez MD [address] [place] [address] [email or web address] Surgical Oncology 06/05/25 documented as of this encounter Additional Source Comments The information contained in this document represents components of the legal health record. It is not the complete legal health record.[facility]
--- OUTSIDE RECORDS SUMMARY | 2025-06-11 08:25 | XMS_ITS | Encounter Summary ---
Author Organization [facility] Address [address] [place] [address] [place] [address] Phone Care Team Providers Care Charging Operator Name Role Phone Jonna Long NP Primary Care Provider Referring, Not Required Unavailable Unavaila Angélica Oates MD Unavailable [phone] Mirza Velazquez MD Unavailable [phone] Encounter Details Date Type Department Care Team (Late st Contact Info) Description 06/06/2025 Ancillary Orders DF IMG OUTSIDE IMG [address] [place] [address] Angélica Vance MD [address] [place] [address] [place] [address] [email or web address] Social History Tobacco Use Types Packs/Day Years [...] 2:15 PM EST Administrative Encounter Central Registration, [facility] [address] [facility] [address] [place] [address] Angélica Vance MD [address] [place] [address] [place] [address] [email or web address] 06/16/2025 3:00 PM EST Office Visit [facility], [facility], [facility] [address] [facility] [address] [place] [address] Angélica Vance MD [address] [place] [address] [place] [address] [email or web address] 07/11/2025 1:00 PM EST Office Visit [facility], [facility], [address] 9th [place] [address] Mirza Velazquez MD [address] [place] [phone] [email or web address] documented as of this encounter Results * Mammogram Outside (No Interpretation) (04/28/2025 12:00 AM EST) Narrative [facility] - 06/06/2025 10:51 AM EST This study is for PACS storage only and not for interpretation. us Angélica Vance MD IMG OUTSIDE IMAGING W/OUT INTE RPRETATION Final Result [facility] documented in this encounter Visit Diagnoses Not on filedocumented in this encounter Care Teams Charging Operator Relationship Specialty Start Date End Date Jonna Long NP [address] [place] [phone] [email or web address] PCP - General 06/04/25 Referring, Not Required Referring Physician 06/04/25 Angélica Vance MD [address] [place] [address] Cancer [facility] [place] [address] [email or web address] 06/05/25 Mirza Velazquez MD [address] [place] [address] [email or web address] Surgical Oncology 06/05/25 documented as of this encounter Additional Source Comments The information contained in this document represents components of the legal health record. It is not the complete legal health record.[facility]
== END 2025-06-11 08:19 | disposition home or self-care (01) ==
LOC: HO.MAMMO 08:18
PROVIDERS: PCP Nurse Practitioner Family; Visit Provider Internal Medicine
DX: C50.912 Malignant neoplasm of unspecified site of left female breast (principal)
CPT/HCPCS: 76642

== ENCOUNTER → 2025-06-11 08:30 | Outpatient (BNV) | payer MEDICARE, MEDICAID, SELFPAY | PROVIDERS: PCP Nurse Practitioner Family; Visit Provider Radiology Body Imaging | DX: Z03.89 Encounter for observation for other suspected diseases and conditions ruled out (principal) | CPT/HCPCS: 76642 ==

== ENCOUNTER 2025-06-24 13:03 | Outpatient (AMB) | payer MEDICARE, MEDICAID, SELFPAY ==
[2025-06-24 13:05] VITALS: BP 130/62; PULSE 69; O2SAT 92; BMI 28.0
--- NOTE | 2025-06-24 13:05 | A.OFFVIS_ITS ---
Vital Signs 06/24/25 13:05 Height 5 ft 4 in Weight 163 lb 4 oz BMI 28.0 BP 130/62 Blood Pressure Location Rt brachial Position Sitting Pulse 69 Pulse Source Pulse Oximeter Pulse Oximetry (%) 92 Oxygen Delivery Method Room Air Intake Visit Reasons: COPD Allergies codeine Allergy (Verified 06/24/25 13:07) Unknown HPI Comments Details: Earlene is a pleasant 64-year-old female, former 40+ pack year smoker, quit 10 years ago with underlying COPD, HTN and h/o acute respiratory failure and sepsis due to multifocal PNA, complicated by takotsubo cardiomyopathy and atrial fibrillation 09/10-09/25/2024. Initially required 5 L nasal cannula satting 88% and transitioned to high-flow O2, ultimately discharged home on 2 L nasal cannula. She had decreased oxygen consumption to 0.5L with exertion and NOC and at the last visit, 6MWT performed and patient continues to require 2L with exertion. She also had overnight oximetry performed which revealed significant hypoxemia, advised to maintain 2L supplemental oxygen at night. She reports that her shortness of breath is relatively controlled on current medications and she has been using her supplemental oxygen less frequently during the day, following a cardiology report that her heart's pumping function has improved. Without oxygen, she reports her saturation levels are typically 93-94% at rest and while shopping, and can sometimes be as high as 96%. The patient continues to use supplemental oxygen at night, which she recently reduced from 2 L to 1.5 L. She recounts one instance over when she fell asleep without her oxygen or medications for approximately 24 hours, and her oxygen saturation dropped to 89%. She uses her prescribed nebulizer rarely. A past sleep study showed her oxygen levels were less than 88% for 16 minutes without oxygen, but did not show sleep apnea. The patient was recently diagnosed with an aggressive form of breast cancer. Due to delays in testing and a desire for specialist care, she has transferred her care from a local hospital to a team in [place]. She anticipates her treatment will involve chemotherapy, radiation, and surgery. Her last lung CT scan in December showed some emphysema and resolution of a prior pneumonia. She has a history of smoking. Pulmonology History - Chronic hypoxemia requiring supplemental oxygen; patient uses 1.5-2 L at night and as needed during the day. - Emphysema, as noted on a CT scan from December. - History of pneumonia, which was resolved on a CT scan from December. - Past sleep study showed nocturnal desaturation to less than 88% for 16 minutes without oxygen, but no sleep apnea. - History of smoking. - Current medications include Dulera, Incruse, and an as-needed nebulizer. [facility] Medical History Non-ST elevation UT (NSTEMI) Multifocal pneumonia No pertinent family history High cholesterol HTN (hypertension) Hx of mammogram (~2019) COPD exacerbation Urinary tract infection Surgical History History of cardiac cath Hx of colonoscopy (~2014) Social History Household Members: Friend(s) Both parents involved: No Caregiver staying overnight: No Housing: House Are you a primary care professional to a significant other at home: No Do you presently have visiting nurse or other home services: No 75 years or older and lives alone: No Alcohol intake: current Alcohol intake frequency: a few times a week Patient Tobacco Use Status: Former Tobacco user Tobacco use type: Cigarette e-Cigarette/Vaping Use: Never Used Second Hand Smoke Exposure: No Current occupational status: retired and disabled Cognitive needs: No Hearing needs: No Vision needs: Yes (wear glasses) Female Reproductive History Menstrual Age of Menarche: 10 Review of Systems Narrative Const Denies chills, Denies excessive sweating, Denies fever(s), Denies headache(s) and Denies night sweats Eyes Denies dry eyes, Denies irritation and Denies itchy eyes ENT Reports Normal hearing present, Denies headache(s), Denies nasal congestion, Denies nasal discharge, Denies post nasal drip and Denies sore throat Card Denies chest pain, Denies chest pain at rest, Denies chest pain with activity, Denies claudication, Denies leg edema, Denies orthopnea and Denies paroxysmal nocturnal dyspnea Resp Denies chest congestion, Denies cough, Denies excessive phlegm production, Denies pain on inspiration, Denies pain with cough, Denies stridor and Denies wheezing Musc Denies myalgias Neuro Reports Normal hearing present and Denies headache(s) Endo Denies excessive sweating James/Lymph Denies lymphadenopathy Aller/Immun Denies itchy eyes, Denies seasonal rhinorrhea and Denies wheezing Physical Exam Exam Exam: Vital Signs: Last Vital Signs Pulse 69 06/24/25 13:05 BP 130/62 06/24/25 13:05 Pulse Ox 92 06/24/25 13:05 Oxygen Delivery Method Room Air 06/24/25 13:05 BMI result Body Mass Index 28.0 Const Other: wearing supplemental O2 General: cooperative, healthy appearing, comfortable, no acute distress, well developed and alert Orientation/consciousness: patient oriented x3 Limitations: no limitations HEENT Head: Yes normal to inspection, Yes normocephalic and Yes atraumatic Ears: hearing grossly normal bilaterally and external ears normal Eyes General: appearance normal, both eyes and all related structures Eyelids: Yes eyelids normal Sclerae: sclerae normal EOM: EOMs intact bilaterally Neck Neck: Yes normal visual inspection and Yes no lymphadenopathy Lymphatic: no lymphadenopathy noted Chest Chest palpation & inspection: normal inspection of the chest Resp Effort & Inspection: normal respiratory effort, able to speak in complete sentences, no audible wheezes, no cough, no stridor, not tachypneic, no tripod positioning and no use of accessory muscles Auscultation: diminished lung sounds Cardio Jugular venous distension: no JVD Rate: regular rate Rhythm: regular rhythm Skin Other: warm, dry General skin exam: no rashes or lesions noted Neuro General: patient oriented x3 Cranial nerves: Yes Normal hearing present Cognition (Neuro): normal cognition Gait exam (Neuro): Normal gait present Extrem General: Yes normal to inspection, Yes capillary refill normal, Yes no clubbing, cyanosis or edema and Yes no pedal edema Psych Appearance: grossly normal and well kempt Speech and movement: Normal speech and movement present and Clear speech present Affect: normal affect Attitude: cooperative Thought process: Normal thought process present Thought content: Normal thought content present Insight: Good insight present (Psych) Judgement: Good judgement present (Psych) Assessment & Plan Assessment & Plan (1) COPD (chronic obstructive pulmonary disease): Code(s): J44.9 - Chronic obstructive pulmonary disease, unspecified Category: Medical Qualifiers: COPD type: chronic bronchitis Chronic bronchitis type: unspecified Qualified Code(s): J42 - Unspecified chronic bronchitis (2) History of acute respiratory failure: Code(s): Z87.09 - Personal history of other diseases of the respiratory system Category: Medical (3) Personal history of tobacco use: Code(s): Z87.891 - Personal history of nicotine dependence Category: Social Hx (4) Nocturnal hypoxemia: Code(s): G47.34 - Idiopathic sleep related nonobstructive alveolar hypoventilation Category: Medical Plan The patient reports improved shortness of breath and is attempting to wean off daytime oxygen. While her oxygen saturation can be acceptable at rest without support, she desaturates at night and with prolonged periods of exertion. Given her upcoming cancer treatment, it is recommended she does not discontinue oxygen at this time. The plan is to continue her current inhalers, Dulera and Incruse, and to use her nebulizer as needed for symptoms such as chest tightness or wheezing. She should continue using supplemental oxygen at 2 L during the night and as needed during the day to maintain her oxygen saturation above 92%. A 6-minute walk test will be performed at the next visit in approximately three months to reassess her oxygen requirements. Deep breathing exercises and light activity, such as walking or using a pedal bike, were also recommended. The patient has a new diagnosis of aggressive breast cancer and is appropriately establishing care with specialists in [place] for further workup and treatment, which is expected to include chemotherapy, radiation, and surgery. The importance of maintaining adequate oxygenation to support healing during her upcoming treatments was discussed. Her pulmonary follow-up schedule will remain flexible to accommodate her cancer treatment plan. Given the patient's history of smoking and emphysema seen on her last CT scan, continued surveillance is warranted. An order will be placed for a repeat CT scan of the lungs in December as part of the lung cancer screening program. All questions were answered and patient is in agreement of plan. Will follow up in 6-8 weeks or sooner if needed. Patient Instructions - Continue taking your Dulera and Incruse inhalers as prescribed. - Use your nebulizer machine as needed if you feel chest tightness, increased shortness of breath, or are wheezing. - Continue to use your oxygen at night at a rate of 2 liters per minute. - Check your oxygen levels during the day. If your level drops below 92%, you must put your oxygen on. - It is very important to continue using oxygen as directed to help your body heal during your upcoming cancer treatments. - Try to do some deep belly breathing exercises and light activities like walking or using a pedal bike to keep your lungs and body active. - We will plan a follow-up visit in about three months to do another walking test. Please call to reschedule if this appointment conflicts with your cancer treatment. - We will place an order for you to get another CT scan of your lungs in December. Patient was informed and verbally consented to the use of an ambient scribe for clinic note documentation during this visit. Orders: Referrals Lung Cancer Screening Referral Z87.891 - Personal history of nicotine dependence Coding Level of Care Code Est Pt Level 4 (66104) Diagnoses Chronic bronchitis, unspecified chronic bronchitis type J42 COPD type: chronic bronchitis Chronic bronchitis type: unspecified History of acute respiratory failure Z87.09 Personal history of tobacco use Z87.891 Nocturnal hypoxemia G47.34
--- OUTSIDE RECORDS SUMMARY | 2025-06-24 16:57 | XMS_ITS | Encounter Summary ---
Author Organization [facility] Prior to 04/26/2024 Address [address] [place] [address] Care Team Providers Care Pig Machine Supervisor Name Role Phone Oren Roberson MD Primary Care Provider [phone] Encounter Details Date Type Department Care Team Description 03/26/2021 Refill Internal Medicine - [address], [address] [place] [address] Oren Roberson MD [address] [place] [address] Social History Tobacco Use Types Packs/Day Years [...] on filedocumented in this encounter Care Teams Pig Machine Supervisor Relationship Specialty Start Date End Date Oren Roberson MD PCP - General Internal Medicine 06/04/18 documented as of this encounter
--- OUTSIDE RECORDS SUMMARY | 2025-06-24 16:57 | XMS_ITS | Encounter Summary ---
Author Organization [facility] Prior to 04/26/[address] [place] [address] Care Team Providers Care Crew Mess Attendant Name Role Phone Oren Roberson MD Primary Care Provider Encounter Details Date Type Department Care Team Description 10/07/2021 Stretcher Drier Operator Report Medical Records [address] [place] [address] Abstract, Provider Social History Tobacco Use Types [...] on filedocumented in this encounter Care Teams Crew Mess Attendant Relationship Specialty Start Date End Date Oren Roberson MD PCP - General Internal Medicine 06/04/18 documented as of this encounter
--- OUTSIDE RECORDS SUMMARY | 2025-06-24 16:57 | XMS_ITS | Encounter Summary ---
Author Organization [facility] Prior to 04/26/2024 Address [address] [place] [address] Care Team Providers Care Farm Loan Representative Name Role Phone Oren Roberson MD Primary Care Provider [phone] Encounter Details Date Type Department Care Team Description 10/07/2021 Manager Express Report Medical Records [address] [place] [address] [facility] [address] [place] [address] Social History Tobacco Use Types Packs/Day Years [...] filedocumented in this encounter Care Teams Farm Loan Representative Relationship Specialty Start Date End Date Oren Roberson MD PCP - General Internal Medicine 06/04/18 documented as of this encounter
--- OUTSIDE RECORDS SUMMARY | 2025-06-24 16:57 | XMS_ITS | Encounter Summary ---
Author Organization [facility] Prior to 04/26/2024 Address [address] [place] [address] Care Team Providers Care Anti Air Warfare Operations Officer Name Role Phone Oren Roberson MD Primary Care Provider [phone] Encounter Details Date Type Department Care Team Description 10/20/2022 Meal Attendant Report Medical Records [address] [place] [address] Center, [facility] [address] [place] [address] Social History Tobacco Use Types Packs/Day Years [...] on filedocumented in this encounter Care Teams Anti Air Warfare Operations Officer Relationship Specialty Start Date End Date Oren Roberson MD PCP - General Internal Medicine 06/04/18 documented as of this encounter
--- OUTSIDE RECORDS SUMMARY | 2025-06-24 16:57 | XMS_ITS | Encounter Summary ---
Author Organization [facility] Prior to 04/26/2024 Address [address] [place] [address] Care Team Providers Care Boring Machine Operator Production Name Role Phone Oren Roberson MD Primary Care Provider Encounter Details Date Type Department Care Team Description 10/07/2021 Orders Only [facility] Medical [facility] Lung Screening Program [place] [address] [facility] [address] [place] [phone] Jamey Reaves MD [address] [facility] [address] [place] [address] History of tobacco abuse Social History Tobacco [...] health documented in this encounter Care Teams Boring Machine Operator Production Relationship Specialty Start Date End Date Oren Roberson MD PCP - General Internal Medicine 06/04/18 documented as of this encounter
--- OUTSIDE RECORDS SUMMARY | 2025-06-24 16:58 | XMS_ITS | Encounter Summary ---
Author Organization [facility] Prior to 04/26/2024 Address [address] [place] [address] Care Team Providers Care Creative Services Intern Name Role Phone Oren Roberson MD Primary Care Provider [phone] Reason for Visit * Reason Comments E-prescribe Rx Request Encounter Details Date Type Department Care Team Description 09/02/2019 Refill Pulmonology - [place] [address] [facility] [address] [place] [address] Larry Myers MD [address] [place] [address] E-prescribe Rx Request Social History [...] N/A Patients current insurance carrier is: Payor: [email or web address] FFS / Plan: Mr [employer] PLUS PLAN / Product Type: MEDICAID RISK documented in this encounter Plan of Treatment Not on file documented as of this encounter Visit Diagnoses Diagnosis Chronic obstructive pulmonary disease, unspecified COPD type (HCC) documented in this encounter Care Teams Creative Services Intern Relationship Specialty Start Date End Date Oren Roberson MD PCP - General Internal Medicine 06/04/18 documented as of this encounter
--- OUTSIDE RECORDS SUMMARY | 2025-06-24 16:58 | XMS_ITS | Encounter Summary ---
Author Organization [facility] Prior to 04/26/2024 Address [address] [place] [address] Care Team Providers Care Sports Medicine Masse[place] Name Role Phone Oren Roberson MD Primary Care Provider [phone] Encounter Details Date Type Department Care Team Description 09/06/2019 Digital Content Producer Report Medical Records [address] [place] [address] Oren Rboerson MD [address] [place], [place] [id number] Social History Tobacco Use Types Packs/Day Years [...] on filedocumented in this encounter Care Teams Sports Medicine [place] Relationship Specialty Start Date End Date Oren Roberson MD PCP - General Internal Medicine 06/04/18 documented as of this encounter
--- OUTSIDE RECORDS SUMMARY | 2025-06-24 16:58 | XMS_ITS | Encounter Summary ---
Author Organization [facility] Prior to 04/26/2024 Address [address] [place] [address] Care Team Providers Care Fire Prevention Forester Name Role Phone Rosalind Hightower MD Primary Care Provider Unavailab Oren Butler MD Primary Care Provider [phone] Encounter Details Date Type Department Care Team Description 12/13/2017 Orders Only Pulmonology - [address] [place] [phone] Cara Marcial NP Social History Tobacco Use [...] on filedocumented in this encounter Care Teams Fire Prevention Forester Relationship Specialty Start Date End Date Rosalind Hightower MD PCP - General Internal Medicine 11/28/17 06/03/18 Oren Roberson MD PCP - General Internal Medicine 06/04/18 documented as of this encounter
--- OUTSIDE RECORDS SUMMARY | 2025-06-24 16:58 | XMS_ITS | Encounter Summary ---
Author Organization [facility] Prior to 04/26/2024 Address [address] [place] [address] Care Team Providers Care Charcoal Kiln Burner Name Role Phone Oren Roberson MD Primary Care Provider [phone] Encounter Details Date Type Department Care Team Description 03/16/2020 Refill Internal Medicine - [address], [address] [place] [address] Oren Roberson MD [address] [place] [address] Social History Tobacco Use Types Packs/Day Years [...] on filedocumented in this encounter Care Teams Charcoal Kiln Burner Relationship Specialty Start Date End Date Oren Roberson MD PCP - General Internal Medicine 06/04/18 documented as of this encounter
--- OUTSIDE RECORDS SUMMARY | 2025-06-24 16:58 | XMS_ITS | Encounter Summary ---
Author Organization [facility] Prior to 04/26/2024 Address [address] [place] [address] Care Team Providers Care Management Analyst Name Role Phone Oren Roberson MD Primary Care Provider [phone] Encounter Details Date Type Department Care Team Description 02/06/2021 Refill Internal Medicine - [address], [address] [place] [address] Oren Roberson MD [address] [place] [place] [address] Social History Tobacco Use Types Packs/Day Years [...] - Incruse maren 62.5 mcg Preferred pharmacy: [facility] [address] [place] [address] Medication renewals requested in this message routed separately: Mometasone Furo-Formoterol Fum (DULERA ) 200-5 MCG/ACT Aerosol [GRAYSON ROA MD, MD] hydrochlorothiazide (HYDRODIURIL) 25 MG tablet [Da Lott MD] documented in this encounter Plan of Treatment Not on file documented as of this encounter Visit Diagnoses Not on filedocumented in this encounter Care Teams Management Analyst Relationship Specialty Start Date End Date Oren Roberson MD PCP - General Internal Medicine 06/04/18 documented as of this encounter
--- OUTSIDE RECORDS SUMMARY | 2025-06-24 16:58 | XMS_ITS | Encounter Summary ---
Author Organization [facility] Prior to 04/26/2024 Address [address] [place] [address] Care Team Providers Care Internal Communications Specialist Name Role Phone Oren Roberson MD Primary Care Provider [phone] Reason for Visit * Reason Comments E-prescribe Rx Request Encounter Details Date Type Department Care Team Description 03/20/2020 Refill Internal Medicine - [address], [address] [place] [address] Oren Roberson MD [address] [place] [address] E-prescribe Rx Request Social History Tobacco Use [...] [facility] [place] - 03/20/2020 9:02 AM EDT [facility] - 02.06.2020 NOV - [facility] to call back and schedule their 6 month follow up around 08/08/2019. Refills - 90 Tabs - Refill amount not specified in the prescription refill request. documented in this encounter Plan of Treatment Not on file documented as of this encounter Visit Diagnoses Not on filedocumented in this encounter Care Teams Internal Communications Specialist Relationship Specialty Start Date End Date Oren Roberson MD PCP - General Internal Medicine 06/04/18 documented as of this encounter
--- OUTSIDE RECORDS SUMMARY | 2025-06-24 16:58 | XMS_ITS | Encounter Summary ---
Author Organization [facility] Prior to 04/26/2024 Address [address] [place] [address] Care Team Providers Care Sales Estimator Name Role Phone Oren Roberson MD Primary Care Provider [phone] Reason for Visit * Reason Comments E-prescribe Rx Request Encounter Details Date Type Department Care Team Description 01/11/2020 Refill Pulmonology - [place] [address] [facility] [address] [place] [address] Larry Myers MD [address] [place] [address] E-prescribe Rx Request Social History [...] NO Patients current insurance carrier is: Payor: [employer] FFS / Plan: [employer] PLAN / Product Type: MEDICAID RISK documented in this encounter Plan of Treatment Not on file documented as of this encounter Visit Diagnoses Diagnosis Chronic obstructive pulmonary disease, unspecified COPD type (HCC) documented in this encounter Care Teams Sales Estimator Relationship Specialty Start Date End Date Oren Roberson MD PCP - General Internal Medicine 06/04/18 documented as of this encounter
--- OUTSIDE RECORDS SUMMARY | 2025-06-24 16:58 | XMS_ITS | Encounter Summary ---
Author Organization [facility] Address [address] [facility] [address] [place] [address] Phone Care Team Providers Care Energy Risk Management Analyst Name Role Phone Jonna Long NP Primary Care Provider Referring, Not Required Unavailable Unavaila Angélica Oates MD Unavailable [phone] Mirza Velazquez MD Unavailable [phone] Taryn Key RN Unavailable Johnny [email or web address] Reason for Referral * Outpatient Procedure - Authorized Specialty Diagnoses / Procedures Referred By Salomón mclaughlin Referred To Contact Radiology Diagnoses Invasive ductal carcinoma of left breast Procedures SNF Biopsy of Breast (Right) FL BX BREAST W DEVICE 1ST LESION ULTRASOUND GUIDE FL BX BREAST W DEVICE ADDL LESION ULTRASOUND GUIDE CHG DIAGNOSTIC MAMMOGRAPHY COMPUTER-AIDED DETCJ UNI CHG X-RAY EXAM, BREAST SPECIMEN FL MOD SED SAME PHYS/QHP INITIAL 15 MINS 5/> YRS FL MOD SED SAME PHYS/QHP EACH ADDL 15 MINS Jacek Tang MD [address] [place] [address] Phone: tel: fax: [email or web address] Referral ID Status Reason Start Date Expiration Date V isits Requested Visits Authorized [id number] Authorized 07/03/2025 08/03/2025 1 1 * Outpatient Procedure - New Request Specialty Diagnoses / Procedures Referred By Contac t Referred To Contact Radiology Diagnoses Invasive ductal carcinoma of left breast Procedures MRP Biopsy Breast (Left) Jacek Tang MD [address] [place] [address] Phone: tel: fax: mailto:[email or web address] Referral ID Status Reason Start Date Expiration Date V isits Requested Visits Authorized New Request 06/20/2025 1 1 * Outpatient Procedure - New Request Specialty Diagnoses / Procedures Referred By Contac t Referred To Contact Radiology Diagnoses Invasive ductal carcinoma of left breast Procedures MRP Biopsy Breast (Left) Jacek Tang MD [address] [place] [address] Phone: tel: fax: mailto:[email or web address] Referral ID Status Reason Start Date Expiration Date V isits Requested Visits Authorized New Request 06/20/2025 1 1 * Outpatient Procedure - Authorized Specialty Diagnoses / Procedures Referred By Contac t Referred To Contact Radiology Diagnoses Invasive ductal carcinoma of left breast Procedures Mammogram Stereotactic Breast Core Biopsy (Left) FL BX BREAST W DEVICE 1ST LESION STEREOTACTIC GUIDE FL BX BREAST W DEVICE ADDL LESION STEREOTACT GUIDE CHG DIAGNOSTIC MAMMOGRAPHY COMPUTER-AIDED DETCJ UNI CHG X-RAY EXAM, BREAST SPECIMEN FL MOD SED SAME PHYS/QHP INITIAL 15 MINS 5/> YRS FL MOD SED SAME PHYS/QHP EACH ADDL 15 MINS Jacek Tang MD [address] [place] [address] Phone: tel: fax: mailto:[email or web address] Referral ID Status Reason Start Date Expiration Date V isits Requested Visits Authorized [id number] Authorized 07/03/2025 08/03/2025 1 1 Encounter Details Date Type Department Care Team (Late st Contact Info) Description 06/20/2025 Orders Only [facility], [facility], [facility] [place] [address] [facility], 9th [place] [address] Kyle Pickard PA-C [address] [place] [address] [email or web address] Invasive ductal carcinoma of left breast (Primary Dx) Social History Tobacco Use [...] Care Team (Late st Contact Info) Description 06/20/2025 Procedure Pass [facility] [address] [address] 06/20/2025 Procedure Pass [facility] Radiology [address] [place] [address] 06/20/2025 Procedure Pass [facility] Radiology [address] [address] 06/25/2025 1:00 PM EST Office Visit [facility], [facility], [facility] [place] [address] [address] Jacek Tang MD [address] [place] [phone] [email or web address] 07/03/2025 12:45 PM EST Appointment [facility] [address] [address] Jacek Tang MD [address] [place] [address] [email or web address] 07/03/2025 1:00 PM EST Appointment [facility] [address] [address] Jacek Tang MD [address] [place] [address] [email or web address] 07/03/2025 2:30 PM EST Hospital Encounter [facility] [address] [address] Jacek Tang MD [address] [place] [phone] [email or web address] 07/03/2025 2:30 PM EST Appointment [facility] [address] [address] Jacek Tang MD [address] [place] [address] [email or web address]@ [email or web address] 07/03/2025 3:00 PM EST Appointment [facility] [address] [place] [address] Jacek Tang MD [address] [place] [address] [email or web address]@ [facility] 07/03/2025 3:00 PM EST Appointment [facility] [address] [place] [address] Jacek Tang MD [address] [place] [phone] [email or web address] 08/18/2025 1:00 PM EST Appointment [facility] Radiology [address] [address] Jacek Tang MD [address] [place] [address] [email or web address]@ [email or web address] 08/18/2025 2:10 PM EST Appointment [facility] Radiology [address] [address] Jacek Tang MD [address] [place] [address] [email or web address] 08/18/2025 2:30 PM EST Appointment [facility] [address] [address] Jacek Tang MD [address] [place] [address] [email or web address] Scheduled Orders Name Type Priority Associated Diagnoses Orde r Schedule Mammogram Diagnostic (Left) Imaging Routine Invasive ductal carcinoma of left breast Expected: 06/20/2025, Expires: 09/18/2025 Mammogram Stereotactic Breast Core Biopsy (Left) Imaging Routine Invasive ductal carcinoma of left breast Expected: 06/20/2025, Expires: 09/18/2025 MRP Biopsy Breast (Left) Imaging Routine Invasive ductal carcinoma of left breast Expected: 06/20/2025, Expires: 09/18/2025 MRP Biopsy Breast (Left) Imaging Routine Invasive ductal carcinoma of left breast Expected: 06/20/2025, Expires: 09/18/2025 SNF Biopsy of Breast (Right) Imaging Routine Invasive ductal carcinoma of left breast Expected: 06/20/2025, Expires: 09/18/2025 US Axilla - Breast Imaging (Left) Imaging Routine Invasive ductal carcinoma of left breast Expected: 06/20/2025, Expires: 09/18/2025 documented as of this encounter Visit Diagnoses Diagnosis Invasive ductal carcinoma of left breast- Primary documented in this encounter Care Teams Energy Risk Management Analyst Relationship Specialty Start Date End Date Jonna Long NP [address] [place] [address] [email or web address] PCP - General 06/04/25 Referring, Not Required Referring Physician 06/04/25 Angélica Vance MD [address] [place] [address] [place] [address] [email or web address] Medical Oncology 06/05/25 Mirza Velazquez MD [address] [place] [address] [email or web address] Surgical Oncology 06/05/25 Taryn Key, SOHA [address] [place] [address] [email or web address] Primary Infusion Nurse 06/16/25 documented as of this encounter Additional Source Comments The information contained in this document represents components of the legal health record. It is not the complete legal health record.[facility]
--- OUTSIDE RECORDS SUMMARY | 2025-06-24 16:58 | XMS_ITS | Encounter Summary ---
Author Organization [facility] Prior to 04/26/2024 Address [address] [place] [address] Care Team Providers Care Belt Glass Sander Name Role Phone Oren Roberson MD Primary Care Provider [phone] Reason for Visit * Reason Comments E-prescribe Rx Request Encounter Details Date Type Department Care Team Description 02/12/2021 Refill Internal Medicine - [address], [address] [place] [address] Oren Roberson MD [address] [place], [place] [id number] E-prescribe Rx Request Social History Tobacco Use [...] on filedocumented in this encounter Care Teams Belt Glass Sander Relationship Specialty Start Date End Date Oren Roberson MD PCP - General Internal Medicine 06/04/18 documented as of this encounter
--- OUTSIDE RECORDS SUMMARY | 2025-06-24 16:58 | XMS_ITS | Encounter Summary ---
Author Organization [facility] Address [address] [place] [address] [place] [address] Phone Care Team Providers Care Senior Construction Estimator Name Role Phone Jonna Long NP Primary Care Provider Referring, Not Required Unavailable Unavaila Angélica Oates MD Unavailable [phone] Mirza Velazquez MD Unavailable [phone] Taryn Key RN Unavailable [email or web address] Encounter Details Date Type Department Care Team (Late st Contact Info) Description 06/12/2025 Orders Only [facility] [place] [address] [place] [address], 9th [place] [address] Angélica Vance MD [address] [place] [address] [place] [address] [email or web address] Malignant neoplasm of female breast, unspecified estrogen receptor status, unspecified laterality, unspecified site of breast Social History Tobacco Use Types Packs/Day Years [...] st Contact Info) Description 06/20/2025 Procedure Pass [facility] [address] [facility] [address] [place] [address] 06/20/2025 Procedure Pass [facility] Radiology [address] [address] 06/20/2025 Procedure Pass [facility] [address] [address] 06/25/2025 1:00 PM EST Office Visit [facility], [facility], [facility] [place] [facility] [place] [address] [address] Jacek Tang MD [address] [place] [phone] [email or web address] 07/03/2025 12:45 PM EST Appointment [facility] [address] [address] Jacek Tang MD [address] [place] [address] [email or web address] 07/03/2025 1:00 PM EST Appointment [facility] [address] [address] Jacek Tang MD [address] [place] [phone] [email or web address] 07/03/2025 2:30 PM EST Hospital Encounter [facility] [address] [address] Jacek Tang MD [address] [place] [phone] [email or web address] 07/03/2025 2:30 PM EST Appointment [facility] [address] [place] [address] Jacek Tang MD [address] [place] [phone] [email or web address] 07/03/2025 3:00 PM EST Appointment [facility] [address] [place] [address] Jacek Tang MD [address] [place] [phone] [email or web address] 07/03/2025 3:00 PM EST Appointment [facility] [address] [place] [address] Jacek Tang MD [address] [place] [phone] [email or web address] 08/18/2025 1:00 PM EST Appointment [facility] [address] [place] [address] Jacek Tang MD [address] [place] [address] [email or web address] 08/18/2025 2:10 PM EST Appointment [facility] [address] [place] [address] Jacek Tang MD [address] [place] [phone] [email or web address] 08/18/2025 2:30 PM EST Appointment [facility] [address] [place] [address] Jacek Tang MD [address] [place] [phone] [email or web address] Pending Results Name Type Priority Associated Diagnoses Date /Time Tissue Exam Pathology and Cytology Routine Malignant neoplasm of female breast, unspecified estrogen receptor status, unspecified laterality, unspecified site of breast 06/12/2025 2:20 PM EST documented as of this encounter Procedures Procedure Name Priority Date/Time Associated Diagnosis Comments OUTSIDE PATHOLOGY REVIEW/CONSULT Routine 06/12/2025 2:20 PM EST Malignant neoplasm of female breast, unspecified estrogen receptor status, unspecified laterality, unspecified site of breast documented in this encounter Results * Outside Pathology Review/Consult (06/12/2025 2:20 PM EST) Consult Auto Resulting Yes 06/12/2025 2:25 PM EST [facility] Consult 06/12/2025 2:20 PM EST 06/12/2025 2:21 PM EST Angélica Vance MD LAB PATHOLOGY ORDERABLES Final Result [facility] [address] [place] [phone] documented in this encounter Visit Diagnoses Diagnosis Malignant neoplasm of female breast, unspecified estrogen receptor status, unspecified laterality, unspecified site of breast documented in this encounter Care Teams Senior Construction Estimator Relationship Specialty Start Date End Date Jonna Long NP [address] [place] [address] [email or web address] PCP - General 06/04/25 Referring, Not Required Referring Physician 06/04/25 Angélica Vance MD [address] [place] [address] [place] [address] [email or web address] 06/05/25 Mirza Velazquez MD [address] [place] [address] [email or web address] Surgical Oncology 06/05/25 Taryn Key RN [address] [place] [address] [email or web address] Primary Infusion Nurse 06/16/25 documented as of this encounter Additional Source Comments The information contained in this document represents components of the legal health record. It is not the complete legal health record.[facility]
--- OUTSIDE RECORDS SUMMARY | 2025-06-24 16:58 | XMS_ITS | Clinical Summary ---
Author Organization [employer] Address [address] [facility] 7 [place] [address] Care Team Providers Care Team Assistant Name Role Phone Unavailable Primary Care Provider Unavailabl e Medications Umeclidinium [place] (Incruse Ellipta) 62.5 MCG/ACT aerosol powderIndicatio ns:COPD with hypoxia (CMS/HCC) ([facility]) Inhale 1 Act (62.5 mcg) Once per day. 30 each 5 Active Dulera 100-5 MCG/ACT inhalerIndicati ons:COPD with hypoxia (CMS/HCC) ([facility]) 5 Active ipratropium-alb uterol (Duo-Neb) 0.5-2.5 mg/3 mL nebulizer solutionIndicat ions:COPD with hypoxia (CMS/HCC) ([facility]) INHALE 1 AMPULE USING A [...]
--- OUTSIDE RECORDS SUMMARY | 2025-06-24 16:58 | XMS_ITS | Encounter Summary ---
Author Organization [facility] Address [address] [place] [address] [place] [address] Phone Care Team Providers Care Engineering Drawings Checker Name Role Phone Jonna Long NP Primary Care Provider Referring, Not Required Unavailable Unavaila Angélica Oates MD Unavailable [phone] Mirza Velazquez MD Unavailable [phone] Taryn Key RN Unavailable Johnny [email or web address] Reason for Referral * Outpatient Procedure - New Request Specialty Diagnoses / Procedures Referred By Salomón mclaughlin Referred To Contact Radiology Diagnoses Abnormal finding on breast imaging Procedures Mammogram Diagnostic Post Procedure (Left) Jacek Tang MD [address] [place] [address] Phone: tel: fax: mailto:[email or web address] Referral ID Status Reason Start Date Expiration Date V isits Requested Visits Authorized [id number] New Request 06/23/2025 1 1 Encounter Details Date Type Department Care Team (Late st Contact Info) Description 06/23/2025 Ancillary Orders [facility] [place], Mammography, Elvia Lank Imaging Department [address] [place] [address] Jacek Tang MD [address] [place] [address] [email or web address] include 234 beds at the [facility] Invasive ductal carcinoma of left breast (Primary Dx); Abnormal finding on breast imaging Social History Tobacco Use Types Packs/Day Years [...] st Contact Info) Description 06/20/2025 Procedure Pass [facility] for [facility] Imaging [address] [address] 06/20/2025 Procedure Pass [facility] Radiology [address] [address] 06/20/2025 Procedure Pass [facility] [address] [address] 06/25/2025 1:00 PM EST Office Visit [facility], [facility], [facility] [facility] [place] [facility] [place] [address] [facility] [address] [place] [address] Jacek Tang MD [address] [place] [address] [email or web address]@ [email or web address] 07/03/2025 12:45 PM EST Appointment [facility] [address] [place] [address] Jacek Tang MD [address] [place] [address] [email or web address]@ [email or web address] 07/03/2025 1:00 PM EST Appointment [facility] [address] [place] [address] Jacek Tang MD [address] [place] [address] [email or web address]@ [email or web address] 07/03/2025 2:30 PM EST Hospital Encounter [facility] [address] [address] Jacek Tang MD [address] [place] [address] [email or web address]@ [email or web address] 07/03/2025 2:30 PM EST Appointment [facility] for Breast Imaging [address] [place] [address] Jacek Tang MD [address] [place] [address] [email or web address]@ [email or web address] 07/03/2025 3:00 PM EST Appointment [facility] [address] [place] [address] Jacek Tang MD [address] [place] [address] [email or web address]@ [email or web address] 07/03/2025 3:00 PM EST Appointment [facility] [address] [place] [address] Jacek Tang MD [address] [place] [address] [email or web address]@ [email or web address] 08/18/2025 1:00 PM EST Appointment [facility] [address] [address] Jacek Tang MD [address] [place] [address] [email or web address]@ [email or web address] 08/18/2025 2:10 PM EST Appointment [facility] Radiology [address] [address] Jacek Tang MD [address] [place] [address] [email or web address]@ [email or web address] 08/18/2025 2:30 PM EST Appointment [facility] [address] [address] Jacek Tang MD [address] [place] [address] [email or web address]@ [email or web address] Scheduled Orders Name Type Priority Associated Diagnoses Orde r Schedule Mammogram Diagnostic Post Procedure (Left) Imaging Routine Abnormal finding on breast imaging Expected: 06/23/2025, Expires: 09/21/2025 documented as of this encounter Visit Diagnoses Diagnosis Invasive ductal carcinoma of left breast- Primary Abnormal finding on breast imaging documented in this encounter Care Teams Engineering Drawings Checker Relationship Specialty Start Date End Date Jonna Long NP [address] [place] [address] [email or web address] PCP - General 06/04/25 Referring, Not Required Referring Physician 06/04/25 Angélica Vance MD [address] [place] [address] Cancer [facility] [place] [address] [email or web address] Medical Oncology 06/05/25 Mirza Velazquez MD [address] [place] [address] [email or web address] Surgical Oncology 06/05/25 Taryn Key, RN [address] [place] [address] [email or web address] include 234 beds at the [facility] Primary Infusion Nurse 06/16/25 documented as of this encounter Additional Source Comments The information contained in this document represents components of the legal health record. It is not the complete legal health record.[facility]
--- OUTSIDE RECORDS SUMMARY | 2025-06-24 16:58 | XMS_ITS | Encounter Summary ---
Author Organization [facility] Address [address] [place] [address] [place] [address] Phone Care Team Providers Care Ironer Sock Name Role Phone Jonna Long NP Primary Care Provider Referring, Not Required Unavailable Unavaila Angélica Oates MD Unavailable [phone] Mirza Velazquez MD Unavailable [phone] Taryn Key RN Unavailable [email or web address] to [email or web address] Reason for Referral * Outpatient Procedure - New Request Specialty Diagnoses / Procedures Referred By Salomón mclaughlin Referred To Contact Radiology Diagnoses Follow-up examination of abnormal mammogram Procedures Mammogram Diagnostic Post Procedure (Left) Jacek Tang MD [address] [place] [address] Phone: tel: fax: mailto:[email or web address] Referral ID Status Reason Start Date Expiration Date V isits Requested Visits Authorized [id number] New Request 06/23/2025 1 1 * Outpatient Procedure - New Request Specialty Diagnoses / Procedures Referred By Salomón mclaughlin Referred To Contact Radiology Diagnoses Follow-up examination of abnormal mammogram Procedures Mammogram Diagnostic Post Procedure (Right) Jacek Tang MD [address] [place] [address] Phone: tel: fax: mailto:[email or web address] Referral ID Status Reason Start Date Expiration Date V isits Requested Visits Authorized [id number] New Request 06/23/2025 1 1 Encounter Details Date Type Department Care Team (Late st Contact Info) Description 06/23/2025 Ancillary Orders [facility] [place], Mammography, Elvia Lank Imaging Department [address] [place] [address] Jacek Tang MD [address] [place] [address] abilio [email or web address] Invasive ductal carcinoma of left breast (Primary Dx); Follow-up examination of abnormal mammogram Social History Tobacco Use Types Packs/Day Years [...] st Contact Info) Description 06/20/2025 Procedure Pass [facility] for [facility] [address] [place] [address] 06/20/2025 Procedure Pass [facility] Radiology [address] [place] [address] 06/20/2025 Procedure Pass [facility] Radiology [address] [place] [address] 06/25/2025 1:00 PM EST Office Visit [facility], [facility], [facility] [place] [facility] [address] [address] Jacek Tang MD [address] [place] [address] [email or web address] 07/03/2025 12:45 PM EST Appointment [facility] [address] [place] [address] Jacek Tang MD [address] [place] [address] [email or web address]@ [email or web address] 07/03/2025 1:00 PM EST Appointment [facility] [address] [place] [address] Jacek Tang MD [address] [place] [address] [email or web address]@ [email or web address] 07/03/2025 2:30 PM EST Hospital Encounter [facility] [address] [place] [address] Jacek Tang MD [address] [place] [address] [email or web address]@ [email or web address] 07/03/2025 2:30 PM EST Appointment [facility] [address] [place] [address] Jacek Tang MD [address] [place] [address] [email or web address]@ [email or web address] 07/03/2025 3:00 PM EST Appointment [facility] [address] [place] [address] Jacek Tang MD [address] [place] [address] [email or web address]@ [email or web address] 07/03/2025 3:00 PM EST Appointment [facility] [address] [place] [address] Jacek Tang MD [address] [place] [address] [email or web address]@ [email or web address] 08/18/2025 1:00 PM EST Appointment [facility] Radiology [address] [address] Jacek Tang MD [address] [place] [address] [email or web address]@ [email or web address] 08/18/2025 2:10 PM EST Appointment [facility] Radiology [address] [place] [address] Jacek Tang MD [address] [place] [address] [email or web address]@ [email or web address] 08/18/2025 2:30 PM EST Appointment [facility] Center for Breast Imaging [address] [place] [address] Jacek Tang MD [address] [place] [address] [email or web address]@ [email or web address] Scheduled Orders Name Type Priority Associated Diagnoses Orde r Schedule Mammogram Diagnostic Post Procedure (Right) Imaging Routine Follow-up examination of abnormal mammogram Expected: 06/23/2025, Expires: 09/21/2025 Mammogram Diagnostic Post Procedure (Left) Imaging Routine Follow-up examination of abnormal mammogram Expected: 06/23/2025, Expires: 09/21/2025 documented as of this encounter Visit Diagnoses Diagnosis Invasive ductal carcinoma of left breast- Primary Follow-up examination of abnormal mammogram documented in this encounter Care Teams Ironer Sock Relationship Specialty Start Date End Date Jonna Long NP [address] [place] [address] [email or web address] PCP - General 06/04/25 Referring, Not Required Referring Physician 06/04/25 Angélica Vance MD [address] [place] [address] Cancer [facility] [place] [address] [email or web address] Medical Oncology 06/05/25 Mirza Velazquez MD [address] [place] [address] [email or web address] Surgical Oncology 06/05/25 Taryn Key RN [address] [place] [address] [email or web address] sale to [email or web address] Primary Infusion Nurse 06/16/25 documented as of this encounter Additional Source Comments The information contained in this document represents components of the legal health record. It is not the complete legal health record.[facility]
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
--- OUTSIDE RECORDS SUMMARY | 2025-06-24 16:58 | XMS_ITS | Encounter Summary ---
Author Organization [facility] Address [address] [place] [address] [place] [address] Phone Care Team Providers Care Soda Dry House Operator Name Role Phone Jonna Long NP Primary Care Provider Referring, Not Required Unavailable Unavaila Angélica Oates MD Unavailable [phone] Mirza Velazquez MD Unavailable [phone] Taryn Key RN Unavailable Johnny [email or web address] Encounter Details Date Type Department Care Team (Late st Contact Info) Description 06/23/2025 Ancillary Orders [facility] [place], Mammography, Elvia Lank Imaging Department [address] [place] [address] Jacek Tang MD [address] [place] [address] [email or web address] [email or web address] Invasive ductal carcinoma of left breast (Primary [...] st Contact Info) Description 06/20/2025 Procedure Pass [facility] for Breast Imaging [address] [facility] 2nd [place] [address] 06/20/2025 Procedure Pass [facility] [address] [facility] [address] [place] [address] 06/20/2025 Procedure Pass [facility] [address] [facility] [address] [place] [address] 06/25/2025 1:00 PM EST Office Visit [facility], [facility], [facility] [place] [facility] [place] [address] [address] Jacek Tang MD [address] [place] [address] [email or web address]@ [email or web address] 07/03/2025 12:45 PM EST Appointment [facility] for Breast Imaging [address] [place] [address] Jacek Tang MD [address] [place] [address] [email or web address]@ [email or web address] 07/03/2025 1:00 PM EST Appointment [facility] for Breast Imaging [address] [place] [address] Jacek Tang MD [address] [place] [address] [email or web address]@ [email or web address] 07/03/2025 2:30 PM EST Hospital Encounter [facility] for Breast Imaging [address] [place] [address] Jacek Tang MD [address] [place] [address] [email or web address]@ [email or web address] 07/03/2025 2:30 PM EST Appointment [facility] for Breast Imaging [address] [place] [address] Jacek Tang MD [address] [place] [address] [email or web address]@ [email or web address] 07/03/2025 3:00 PM EST Appointment [facility] for Breast Imaging [address] [address] Jacek Tang MD [address] [place] [address] [email or web address]@ [email or web address] 07/03/2025 3:00 PM EST Appointment [facility] for Breast Imaging [address] [address] Jacek Tang MD [address] [place] [address] [email or web address] 08/18/2025 1:00 PM EST Appointment [facility] [address] [address] Jacek Tang MD [address] [place] [address] [email or web address]@ [email or web address] 08/18/2025 2:10 PM EST Appointment [facility] [address] [address] Jacek Tang MD [address] [place] [address] [email or web address]@ [email or web address] 08/18/2025 2:30 PM EST Appointment [facility] for Breast Imaging [address] [place] [address] Jacek Tang MD [address] [place] [address] [email or web address]@ [email or web address] Scheduled Orders Name Type Priority Associated Diagnoses Orde r Schedule Mammogram Breast Specimen Post Procedure Biopsy (Left) Imaging Routine Follow-up examination of abnormal mammogram Expected: 06/23/2025, Expires: 09/21/2025 documented as of this encounter Visit Diagnoses Diagnosis Invasive ductal carcinoma of left breast- Primary Follow-up examination of abnormal mammogram documented in this encounter Care Teams Soda Dry House Operator Relationship Specialty Start Date End Date Jonna Long NP [address] [place] [address] [email or web address] PCP - General 06/04/25 Referring, Not Required Referring Physician 06/04/25 Angélica Vance MD [address] [place] [address] Cancer [facility] [place] [address] [email or web address] Medical Oncology 06/05/25 Mirza Velazquez MD [address] [place] [address] [email or web address] Surgical Oncology 06/05/25 Taryn Key, SOHA [address] [place] [address] [email or web address] Primary Infusion Nurse 06/16/25 documented as of this encounter Additional Source Comments The information contained in this document represents components of the legal health record. It is not the complete legal health record.[facility]
--- OUTSIDE RECORDS SUMMARY | 2025-06-24 16:58 | XMS_ITS | Encounter Summary ---
Author Organization [facility] Prior to 04/26/2024 Address [address] [place] [address] Care Team Providers Care Automotive Glass Installer Name Role Phone Oren Roberson MD Primary Care Provider [phone] Reason for Visit * Reason Onset Date Comments refill request 02/13/2019 Encounter Details Date Type Department Care Team Description 02/13/2019 Telephone Internal Medicine - [address], [address] [place], [place] [address] Oren Roberson MD [address] [place] [address] refill request Social History Tobacco Use Types [...] N/A Patients current insurance carrier is: Payor: [employer] FFS / Plan: [employer] / Product Type: MEDICAID RISK documented in this encounter Plan of Treatment Not on file documented as of this encounter Visit Diagnoses Not on filedocumented in this encounter Care Teams Automotive Glass Installer Relationship Specialty Start Date End Date Oren Roberson MD PCP - General Internal Medicine 06/04/18 documented as of this encounter
--- OUTSIDE RECORDS SUMMARY | 2025-06-24 16:58 | XMS_ITS | Encounter Summary ---
Author Organization [facility] Prior to 04/26/2024 Address [address] [place] [address] Care Team Providers Care Copy Holder Name Role Phone Oren Roberson MD Primary Care Provider [phone] Encounter Details Date Type Department Care Team Description 10/08/2020 Salt Manager Report Medical Records [address] [place], [place] [address] [place] [address] Social History Tobacco Use Types Packs/Day Years [...] on filedocumented in this encounter Care Teams Copy Holder Relationship Specialty Start Date End Date Oren Roberson MD PCP - General Internal Medicine 06/04/18 documented as of this encounter
--- OUTSIDE RECORDS SUMMARY | 2025-06-24 16:58 | XMS_ITS | Encounter Summary ---
Author Organization [facility] Address [address] [place] [address] [place] [phone] Phone Care Team Providers Care Manager Sustainability Name Role Phone Jonna Long NP Primary Care Provider Referring, Not Required Unavailable Unavaila Angélica Oates MD Unavailable [phone] Mirza Velazquez MD Unavailable [phone] Taryn Key RN Unavailable [email or web address] Encounter Details Date Type Department Care Team (Late st Contact Info) Description 06/06/2025 Orders Only Elvia Lank Imaging Department, [facility], Radiography [address] [facility] [place] [address] Angélica Vance MD [address] [facility] [place] [address] [email or web address] Social History Tobacco Use [...] st Contact Info) Description 06/20/2025 Procedure Pass [facility] [address] [facility] [address] [place] [address] 06/20/2025 Procedure Pass [facility] Radiology [address] [facility] [address] [place] [address] 06/20/2025 Procedure Pass [facility] Radiology [address] [place] [phone] 06/25/2025 1:00 PM EST Office Visit [facility], [facility], [facility] [place] at [address] [place] [address] Jacek Tang MD [address] [place] [phone] [email or web address] 07/03/2025 12:45 PM EST Appointment [facility] [address] [place] [address] Jacek Tang MD [address] [place] [phone] [email or web address] 07/03/2025 1:00 PM EST Appointment [facility] [address] [place] [address] Jacek Tang MD [address] [place] [phone] [email or web address]@ [email or web address] 07/03/2025 2:30 PM EST Hospital Encounter [facility] [address] [place] [address] Jacek Tang MD [address] [place] [phone] [email or web address]@ [email or web address] 07/03/2025 2:30 PM EST Appointment [facility] [address] [place] [address] Jacek Tang MD [address] [place] [phone] [email or web address]@ [email or web address] 07/03/2025 3:00 PM EST Appointment [facility] [address] [place] [address] Jacek Tang MD [address] [place] [phone] [email or web address]@ [email or web address] 07/03/2025 3:00 PM EST Appointment [facility] [address] [place] [address] Jacek Tang MD [address] [place] [phone] [email or web address]@ [email or web address] 08/18/2025 1:00 PM EST Appointment [facility] [address] [address] Jacek Tang MD [address] [place] [phone] [email or web address]@ [email or web address] 08/18/2025 2:10 PM EST Appointment [facility] [address] [address] Jacek Tang MD [address] [place] [phone] [email or web address]@ [facility] 08/18/2025 2:30 PM EST Appointment [facility] [address] [place] [address] Jacek Tang MD [address] [place] [phone] [email or web address] documented as of this encounter Results * DXA Outside (No Interpretation) (03/11/2025 12:05 AM EDT) Narrative RAFAEL - 06/06/2025 11:11 AM EST This study is for PACS storage only and not for interpretation. us Angélica Vance MD IMG OUTSIDE IMAGING W/OUT INTE RPRETATION Final Result [facility] documented in this encounter Visit Diagnoses Not on filedocumented in this encounter Care Teams Manager Sustainability Relationship Specialty Start Date End Date Jonna Long NP [address] [place] [phone] [email or web address] PCP - General 06/04/25 Referring, Not Required Referring Physician 06/04/25 Angélica Vance MD [address] [place] [address] [facility] [place] [address] [email or web address] 06/05/25 Mirza Velazquez MD [address] [place] [phone] [email or web address] 06/05/25 Taryn Key, SOHA [address] [place] [phone] [email or web address] Primary Infusion Nurse 06/16/25 documented as of this encounter Additional Source Comments The information contained in this document represents components of the legal health record. It is not the complete legal health record.[facility]
== END 2025-06-24 13:27 | disposition home or self-care (01) ==
LOC: HO.HPSW 13:04
PROVIDERS: PCP Nurse Practitioner Family; Visit Provider Nurse Practitioner Family
DX: J42 Unspecified chronic bronchitis (principal); Z87.09 Personal history of other diseases of the respiratory system; Z87.891 Personal history of nicotine dependence; G47.34 Idiopathic sleep related nonobstructive alveolar hypoventilation
CPT/HCPCS: 99214

== ENCOUNTER → 2025-06-24 13:03 | Outpatient (BNVA) | payer MEDICARE, MEDICAID, SELFPAY | PROVIDERS: PCP Nurse Practitioner Family; Visit Provider Nurse Practitioner Family | DX: J42 Unspecified chronic bronchitis (principal); G47.34 Idiopathic sleep related nonobstructive alveolar hypoventilation; Z87.09 Personal history of other diseases of the respiratory system; Z87.891 Personal history of nicotine dependence; Z79.899 Other long term (current) drug therapy | CPT/HCPCS: 99212 ==